=== PATIENT | female | born 2000 | race Caucasian/White ===

== ENCOUNTER 2024-05-09 13:33 | Outpatient (OUT) | payer OTHER, SELFPAY ==
--- NOTE | 2024-05-09 13:37 | US_ITS ---
[address] [address] Patient Name: TANNER RAMIREZ MRN: [id number] date: 2000 Sex: F Assigned Patient Location: [facility] Current Patient Location: LAB Accession/Order Number: [id number] Exam Date: 05/09/2024 13:37 Report Date: 05/09/2024 15:22 At the request of: WILL CRESPO Procedure: US OB >= 14 weeks Fetus EXAMINATION: US OB >= 14 weeks Fetus HISTORY: MISSED MENSES COMPARISON: No relevant comparison available. TECHNIQUE: Transabdominal sonographic examination was performed for obstetrical and evaluation. FINDINGS: Number: 1 Heart Rate: 153 bpm H.B. /min Amniotic Fluid Volume: Subjectively normal Placental Location: Anterior, grade 1 BIOMETRY: BPD: 3.42 cm; 16 weeks 4 days; HC: 12.68 cm; ; 16 weeks 3 days AC: 11.40 cm; ; 17 weeks 1 day FL: 2.20 cm; ; 16 weeks 4 days EFW:173.68 g; FL/AC: 19.30 FL/BPD: 64.33 HC/AC: 1.11 GESTATIONAL AGE: Age by EDC: Unknown Age by current US: 16 weeks 5 days JOSE by current US: 2024-10-19 US/US OB >= 14 weeks Fetus IMPRESSION: [place] intrauterine gestation measuring 16 weeks 5 days *Reference: [facility] Practice Guideline for the performance of Obstetric Ultrasound Examinations, July 02, 2007. Electronically authenticated by: LEE CLAY Date: 05/09/2024 15:22
== END 2024-05-09 13:34 | disposition home or self-care (01) ==
LOC: NOMS 13:33
PROVIDERS: Visit Provider Obstetrics & Gynecology
DX: Z34.92 Encounter for supervision of normal pregnancy, unspecified, second trimester (principal)
CPT/HCPCS: 76815

== ENCOUNTER 2024-05-09 15:11 | Outpatient (OUT) | payer OTHER, SELFPAY ==
[2024-05-09 15:51] LABS: Basophils Percent Auto 0.1 % (0.2-2.0); Eosinophils Percent Auto 0.4 % (0.9-7.0); Hematocrit 34.5 % (36.0-48.0); Hemoglobin 11.9 g/dL (12.0-16.0); Immature Granulocytes Abs Auto 0.06 10^3/uL (0.00-0.03); Immature Granulocytes Pct Auto 0.7 % (0.0-0.5); Lymphocytes Absolute Auto 1.5 10^3/uL (1.2-3.8); Lymphocytes Percent Auto 16.6 % (20.5-60.0); Mean Corpuscular HGB Conc 34.5 g/dL (29.9-35.2); Mean Corpuscular Hemoglobin 30.3 pg (26.7-34.0); Mean Corpuscular Volume 87.8 fL (81.0-99.0); Mean Platelet Volume 10.2 fL (9.5-13.5); Monocytes Absolute Auto 0.5 10^3/uL (0.3-0.8); Monocytes Percent Auto 5.9 % (1.7-12.0); Neutrophils Absolute Auto 6.8 10^3/uL (1.4-6.5); Neutrophils Percent Auto 76.3 % (43.0-75.0); Platelet Count 197 10^3/uL (150-450); Red Blood Count 3.93 10^6/uL (4.20-5.40); Red Cell Distribution Width 13.6 % (11.0-15.0)
[2024-05-09 16:06] LABS: Estimated Average Glucose 80 mg/dL; Glycohemoglobin A1C 4.4 % (4.5-6.2)
== END 2024-05-09 15:12 | disposition home or self-care (01) ==
LOC: LAB 15:12
PROVIDERS: Visit Provider Obstetrics & Gynecology
DX: Z34.92 Encounter for supervision of normal pregnancy, unspecified, second trimester (principal); N92.6 Irregular menstruation, unspecified
CPT/HCPCS: 36415; 76815; 83036; 85025; 86592; 86762; 86803; 86850; 86900; 86901; 87086; 87340; 87389

== ENCOUNTER 2024-06-05 09:29 | Outpatient (OUT) | payer OTHER, SELFPAY ==
--- NOTE | 2024-06-05 09:30 | US_ITS ---
[address] [address] Patient Name: TANNER RAMIREZ MRN: [id number] date: 2000 Sex: F Assigned Patient Location: [facility] Current Patient Location: LAB Accession/Order Number: [id number] Exam Date: 06/05/2024 09:30 Report Date: 06/05/2024 12:20 At the request of: WILL CRESPO Procedure: US OB anatomy EXAMINATION: US OB anatomy, US OB cervical length HISTORY: anatomic survey Z36.89 COMPARISON: No relevant comparison available. TECHNIQUE: Transabdominal sonographic examination was performed for obstetrical and evaluation. FINDINGS: Number: 1 Heart Rate: 107.30 bpm with long periods decreasing to 56 bpm Amniotic Fluid Volume: Subjectively normal Placental Location: Anterior with lower margin 2.1 cm from os. Cervix Length: 5.22 cm ; closed ANATOMY: Normal Structures -cerebellum, choroid plexus, cisterna magna, lateral cerebral ventricles, orbits, midline falx, hard palate, four-chamber heart, RVOT, LVOT, stomach, kidneys, bladder, umbilical cord insertion into abdomen, three-vessel cord, cervical spine, thoracic spine, lumbar spine, sacral spine, right upper extremity, left upper extremity, right lower extremity, left lower extremity. SUBOPTIMALLY SEEN: None ABNORMALITIES: None. Placental end of the cord inserts 2.3 cm from margin of placenta. BIOMETRY: BPD: 4.40 cm; 19 weeks 2 days; 8 % HC: 17.34 cm; 19 weeks 6 days; 14.60 % AC: 14.51 cm; 19 weeks 6 days; 20.80 % FL: 3.20 cm; 20 weeks 0 days; 21.30 % EFW:317.49 g; 13.80 % FL/AC: 22.04 FL/BPD: 72.60 HC/AC: 1.20 GESTATIONAL AGE: Age by EDC: 20 weeks 4 days Age by current US: 19 weeks 5 days JOSE by current US: 2024-10-25 JOSE by EDC: 2024-10-19 US/US OB anatomy IMPRESSION: 1. Single live intrauterine with growth detailed above. 2. Low-lying anterior placenta. 3. Episodes of lower heart rate (56 bpm). Electronically authenticated by: TEAGAN ENRIQUE Date: 06/05/2024 12:20
--- NOTE | 2024-06-05 09:30 | US_ITS ---
[address] [address] Patient Name: TANNER RAMIREZ MRN: [id number] date: 2000 Sex: F Assigned Patient Location: [facility] Current Patient Location: LAB Accession/Order Number: [id number] Exam Date: 06/05/2024 09:30 Report Date: 06/05/2024 12:20 At the request of: WILL CRESPO Procedure: US OB cervical length EXAMINATION: US OB anatomy, US OB cervical length HISTORY: anatomic survey Z36.89 COMPARISON: No relevant comparison available. TECHNIQUE: Transabdominal sonographic examination was performed for obstetrical and evaluation. FINDINGS: Number: 1 Heart Rate: 107.30 bpm with long periods decreasing to 56 bpm Amniotic Fluid Volume: Subjectively normal Placental Location: Anterior with lower margin 2.1 cm from os. Cervix Length: 5.22 cm ; closed ANATOMY: Normal Structures -cerebellum, choroid plexus, cisterna magna, lateral cerebral ventricles, orbits, midline falx, hard palate, four-chamber heart, RVOT, LVOT, stomach, kidneys, bladder, umbilical cord insertion into abdomen, three-vessel cord, cervical spine, thoracic spine, lumbar spine, sacral spine, right upper extremity, left upper extremity, right lower extremity, left lower extremity. SUBOPTIMALLY SEEN: None ABNORMALITIES: None. Placental end of the cord inserts 2.3 cm from margin of placenta. BIOMETRY: BPD: 4.40 cm; 19 weeks 2 days; 8 % HC: 17.34 cm; 19 weeks 6 days; 14.60 % AC: 14.51 cm; 19 weeks 6 days; 20.80 % FL: 3.20 cm; 20 weeks 0 days; 21.30 % EFW:317.49 g; 13.80 % FL/AC: 22.04 FL/BPD: 72.60 HC/AC: 1.20 GESTATIONAL AGE: Age by EDC: 20 weeks 4 days Age by current US: 19 weeks 5 days JOSE by current US: 2024-10-25 JOSE by EDC: 2024-10-19 US/US OB cervical length IMPRESSION: 1. Single live intrauterine with growth detailed above. 2. Low-lying anterior placenta. 3. Episodes of lower heart rate (56 bpm). Electronically authenticated by: TEAGAN ENRIQUE Date: 06/05/2024 12:20
== END 2024-06-05 09:30 | disposition home or self-care (01) ==
LOC: NOMS 09:29
PROVIDERS: Visit Provider Obstetrics & Gynecology
DX: O44.42 Low lying placenta NOS or without hemorrhage, second trimester (principal); Z36.89 Encounter for other specified antenatal screening; Z3A.20 20 weeks gestation of pregnancy
CPT/HCPCS: 76805; 76817

== ENCOUNTER 2024-06-05 11:29 | Outpatient (OUT) | payer OTHER, SELFPAY ==
[2024-06-07 02:09] LABS: AFP Value 73.4 ng/mL (.); Gest. Age on Collection Date 20.6 weeks (.); Gestat. Age Based On Ultrasound (.); Insulin Dep Diabetes No (.); Maternal Age At EDD 22.5 yr (.); OSBR Risk 1 IN 10000 (.); Results Report (.)
== END 2024-06-05 11:30 | disposition home or self-care (01) ==
PROVIDERS: Visit Provider Obstetrics & Gynecology
DX: O44.42 Low lying placenta NOS or without hemorrhage, second trimester (principal); Z36.89 Encounter for other specified antenatal screening; Z3A.20 20 weeks gestation of pregnancy
CPT/HCPCS: 36415; 76805; 76817; 82105

== ENCOUNTER 2024-07-03 19:59 | Outpatient (REF) | payer OTHER, SELFPAY ==
--- OUTSIDE RECORDS SUMMARY | 2024-07-03 20:03 | XMS_ITS | CCD ---
Author Organization [facility] Care Team Providers Care Field Services Analyst Name Role Phone OKSANAMAIRA ECHEVARRIA Unavailable Unavailable TOBY, ROSE MARY Unavailable Unavailable TOBY, ROSE MARY Unavailable Unavailable SONDIKE, CONOR B Unavailable Unavailable SONDIKE, CONOR B Unavailable Unavailable TOBY, ROSE MARY Unavailable Unavailable HISSETT, JOON Unavailable Unavailable TOBY, ROSE MARY Unavailable Unavailable CHERYL NORIEGA Unavailable Unavailable NOAH MCCALLUM Unavailable Unavailable MAIDA REEVES Unavailable Unavailable TOBY, Rose Mary A Primary Care Physician Fatoumata Oneill Primary Care Physician [phone] CHERIE ., DR SOLIS Attending Unavailable CHERIE ., DR SOLIS Admitting Unavailable KARASIK ., DR CEE Attending Unavailabl e MISC, DR CORNEJO Primary Care Unavailable KARASIK ., DR CEE Consulting Unavailabl e KARASIK ., DR CEE Admitting Unavailabl e ZIEBER, DR TEAGAN Jurado Consulting Unavailable MISC, DR CORNEJO Primary Care Unavailable CHERIE ., DR SOLIS Attending Unavailable CHERIE ., DR SOLIS Consulting Unavailable CHERIE ., DR SOLIS Admitting Unavailable CHERIE ., DR SOLIS Attending Unavailable CHERIE ., DR SOLIS Consulting Unavailable CHERIE ., DR SOLIS Admitting Unavailable CHERIE ., DR SOLIS Attending Unavailable CHERIE ., DR SOLIS Consulting Unavailable CHERIE ., DR SOLIS Admitting Unavailable ZIEBER, DR TEAGAN Jurado Consulting Unavailable MISC, DR CORNEJO Primary Care Unavailable CHERIE ., DR SOLIS Attending Unavailable CHERIE ., DR SOLIS Consulting Unavailable CHERIE ., DR SOLIS Admitting Unavailable MISC, DR CORNEJO Primary Care Unavailable KARASIK ., DR CEE Attending Unavailabl e KARASIK ., DR CEE Consulting Unavailabl e KARASIK ., DR CEE Admitting Unavailabl e WEST, DR LEE Arceo Consulting Unavailable CHERIE ., DR SOLIS Consulting Unavailable MISC, DR CORNEJO Primary Care Unavailable CHERIE ., DR SOLIS Attending Unavailable CHERIE ., DR SOLIS Consulting Unavailable CHERIE ., DR SOLIS Admitting Unavailable MISC, DR CORNEJO Primary Care Unavailable SEDRICK ., WILL Admitting Unavailable SEDRICK ., WILL Attending Unavailable SEDRICK ., WILL Consulting Unavailable CHERIE ., DR SOLIS Attending Unavailable CHERIE ., DR SOLIS Consulting Unavailable CHERIE ., DR SOLIS Admitting Unavailable CHERIE ., DR SOLIS Attending Unavailable CHERIE ., DR SOLIS Consulting Unavailable CHERIE ., DR SOLIS Admitting Unavailable MISC, DR CORNEJO Primary Care Unavailable CHERIE ., DR SOLIS Consulting Unavailable CHERIE ., DR SOLIS Attending Unavailable CHERIE ., DR SOLIS Admitting Unavailable ZIEBER, DR TEAGAN Jurado Consulting Unavailable CHERIE ., DR SOLIS Attending Unavailable CHERIE ., DR SOLIS Consulting Unavailable CHERIE ., DR SOLIS Admitting Unavailable CHERIE ., DR SOLIS Attending Unavailable CHERIE ., DR SOLIS Consulting Unavailable CHERIE ., DR SOLIS Admitting Unavailable ZIEBER, DR TEAGAN Jurado Consulting Unavailable MISC, DR CORNEJO Primary Care Unavailable CHERIE ., DR SOLIS Attending Unavailable CHERIE ., DR SOLIS Consulting Unavailable CHERIE ., DR SOLIS Admitting Unavailable CHERIE ., DR SOLIS Attending Unavailable CHERIE ., DR SOLIS Consulting Unavailable CHERIE ., DR SOLIS Admitting Unavailable MISC, DR CORNEJO Primary Care Unavailable CHERIE ., DR SOLIS Consulting Unavailable CHERIE ., DR SOLIS Admitting Unavailable CHERIE ., DR SOLIS Attending Unavailable MISC, DR CORNEJO Primary Care Unavailable REINECK, DR CONOR Lux Consulting Unavailabl e REINECK, DR CONOR Lux Admitting Unavailabl e REINECK, DR CONOR Lux Attending Unavailabl e CHERIE ., DR SOLIS Attending Unavailable CHERIE ., DR SOLIS Consulting Unavailable CHERIE ., DR SOLIS Admitting Unavailable ZIEBER, DR TEAGAN Jurado Consulting Unavailable MISC, DR CORNEJO Primary Care Unavailable KARASIK ., DR CEE Consulting Unavailabl e KARASIK ., DR CEE Admitting Unavailabl e KARASIK ., DR CEE Attending Unavailabl e CHERIE ., DR SOLIS Consulting Unavailable ZIEBER, DR TEAGAN Jurado Consulting Unavailable CHERIE ., DR SOLIS Attending Unavailable MISC, DR CORNEJO Primary Care Unavailable CHERIE ., DR SOLIS Consulting Unavailable CHERIE ., DR SOLIS Admitting Unavailable KARASIK ., DR CEE Attending Unavailabl e MISC, DR CORNEJO Primary Care Unavailable KARASIK ., DR CEE Consulting Unavailabl e KARASIK ., DR CEE Admitting Unavailabl e WEST, DR LEE Arceo Consulting Unavailable CHERIE ., DR SOLIS Consulting Unavailable MISC, DR CORNEJO Primary Care Unavailable CHERIE ., DR SOLIS Attending Unavailable CHERIE ., DR SOLIS Consulting Unavailable CHERIE ., DR SOLIS Admitting Unavailable ZIEBER, DR TEAGAN Jurado Consulting Unavailable MISC, DR CORNEJO Primary Care Unavailable CHRISTIANO KHOURY Consulting Unavailable IRAIDA, CHRISTIANO Admitting Unavailable CHRISTIANO KHOURY Attending Unavailable MISC, DR CORNEJO Primary Care Unavailable CHERIE ., DR SOLIS Attending Unavailable KARASIK ., DR CEE Consulting Unavailabl e CHERIE ., DR SOLIS Admitting Unavailable CHERIE ., DR SOLIS Consulting Unavailable ZIEBER, DR TEAGAN Jurado Consulting Unavailable MISC, DR CORNEJO Primary Care Unavailable KARASIK ., DR CEE Consulting Unavailabl e KARASIK ., DR CEE Admitting Unavailabl e KARASIK ., DR CEE Attending Unavailabl e CHERIE ., DR SOLIS Consulting Unavailable ZIEBER, DR TEAGAN Jurado Consulting Unavailable MISC, DR CORNEJO Primary Care Unavailable KARASIK ., DR CEE Consulting Unavailabl e KARASIK ., DR CEE Admitting Unavailabl e KARASIK ., DR CEE Attending Unavailabl e WEST, DR LEE Arceo Consulting Unavailable CHERIE ., DR SOLIS Consulting Unavailable MISC, DR CORNEJO Primary Care Unavailable CHERIE ., DR SOLIS Attending Unavailable CHERIE ., DR SOLIS Admitting Unavailable MISC, DR CORNEJO Primary Care Unavailable DEBBIE ROJAS Admitting Unavailable DEBBIE ROJAS Attending Unavailable DEBBIE ROJAS Consulting Unavailable MAHAD OLIVEROS Consulting Unavailable MISC, DR CORNEJO Primary Care Unavailable CHERIE ., DR SOLIS Attending Unavailable CHERIE ., DR SOLIS Consulting Unavailable CHERIE ., DR SOLIS Admitting Unavailable MAREK LAI Consulting Unavailable CHERIE ., DR SOLIS Procedure Practitioner Unavail able MIS, DR CORNEJO Primary Care Unavailable CHERIE ., DR SOLIS Attending Unavailable CHERIE ., DR SOLIS Consulting Unavailable CHERIE ., DR SOLIS Admitting Unavailable MISC, DR CORNEJO Primary Care Unavailable CHERIE ., DR SOLIS Attending Unavailable CHERIE ., DR SOLIS Consulting Unavailable CHERIE ., DR SOLIS Admitting Unavailable ZIEBER, DR TEAGAN Jurado Consulting Unavailable MIS, DR CORNEJO Primary Care Unavailable CHERIE ., DR SOLIS Attending Unavailable PROSPECT PARK, DR LEE Arceo Consulting Unavailable CHERIE ., DR SOLIS Admitting Unavailable CHERIE ., DR SOLIS Consulting Unavailable CHERIE ., DR SOLIS Attending Unavailable CHERIE ., DR SOLIS Consulting Unavailable CHERIE ., DR SOLIS Admitting Unavailable ALINE Tomlinson Attending Provider Mel Tomlinson Unavailable Augusto Brewer Unavailable Mel Tomlinson Admitting Unavailable Mel Tomlinson Attending Unavailable NO PCP, NO PCP Primary Care Unavailable NO PCP, NO PCP Primary Care Unavailable SLIME ELLER Attending Unavailable SLIME ELLER Referring Unavailable NO PCP, NO PCP Primary Care Unavailable WILL HARDING Attending Unavailable Medications Current Medications Medication Drug Class(es) Dates Sig (Normalized) Sig (Original) amoxicillin 500 mg oral capsule (8 sources) Penicillin-class Antibacterial Start: 07-17-2023 take 1 capsule by mouth every eight hours Amoxicillin 500 MG 1 capsule Orally three times a day for 10 day(s) Jul, Active Amoxicillin 875 MG Oral for 10 Days Not-Taking fluconazole 150 mg oral tablet (4 sources) Azole Antifungal Start: 07-17-2023 Diflucan 150 MG 1 tablet Orally once for 2 days Take the first tablet at the first onset of vaginal itching, take the second tablet 3 days later Jul, Active hydrocortisone 10 mg/ml / neomycin 3.5 mg/ml / polymyxin b 41033 unt/ml otic suspension (4 sources) Aminoglycoside Antibacterial, Polymyxin-class Antibacterial, Corticosteroid Start: 07-17-2023 Neomycin-Polym yxin-HC 3.5-63965-4 3 drops right ear Three times a day for 7 days Jul, Active polyethylene glycol 3350 63687 mg powder for oral solution (5 sources) Osmotic Laxative Start: 09-27-2022 take 17 g by mouth once daily Miralax 3350 17 gram packet 17 gm, Oral, Daily, # 12 EA, Refills(s) 0, Pharmacy: [facility]/pharmacy #[id number], 157.5, cm, 09/27/22 22:57:00 EST, Height/Length Dosing, 51.3, kg, 09/27/22 22:57:00 EST, Weight Dosing Start Date: 09/27/22 Status: Ordered sulfamethoxazole 800 mg / trimethoprim 160 mg oral tablet (7 sources) Dihydrofolate Reductase Inhibitor Antibacterial, Sulfonamide Antimicrobial Start: 07-20-2023 take 1 tablet by mouth every twelve hours Bactrim DS 800-160 MG 1 tablet Orally Twice a day for 7 days Jul, Active Completed/Discontinued Medications Medication Drug Class(es) Dates Sig (Normalized) Sig (Original) azithromycin 250 mg oral tablet (4 sources) Macrolide Antimicrobial Azithromycin 250 MG Oral for 3 Days Not-Taking cephalexin 250 mg oral capsule (4 sources) Cephalosporin Antibacterial Cephalexin 250 MG Oral for 5 Days Not-Taking metroNIDAZOLE 500 mg oral tablet (4 sources) Nitroimidazole Antimicrobial metroNIDAZOLE 500 MG Oral for 7 Days Not-Taking ondansetron 4 mg disintegrating oral tablet (4 sources) Serotonin-3 Receptor Antagonist take 1 tablet by mouth every eight hours as needed Ondansetron 4 MG DISSOLVE 1 TABLET ON THE TOUNGE EVERY 8 HOURS NEEDED Oral for 2 Days Not-Taking venlafaxine 50 mg oral tablet (4 sources) Serotonin and Norepinephrine Reuptake Inhibitor Venlafaxine HCl 50 MG Oral for 30 Days Not-Taking Problems Active Problems Problem Classification Problem Date Documented Da te Episodic/Chronic Acute and chronic tonsillitis (2 sources) Tonsillitis 05-19-2021 Episodic Disorders usually diagnosed in infancy, childhood, or adolescence (2 sources) 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 Genitourinary symptoms and ill-defined conditions (3 sources) Personal history of urinary (tract) infections; Translations: [Dysuria] Onset: 11-21-2022 Episodic Immunizations and screening for infectious disease (2 sources) Encounter for screening for infections with a predominantly sexual mode of transmission; Translations: [Contact with and (suspected) exposure to infections with a predominantly sexual mode of transmission] Onset: 05-20-2022 Episodic Intestinal infection (5 sources) Viral gastritis; Translations: [Viral gastroenteritis] Onset: 12-29-2022 12-11-2019 Episodic Menstrual disorders (6 sources) Dysmenorrhea; Translations: [Irregular menstruation, unspecified] Onset: 02-11-2022 02-12-2019 Chronic Other ear and sense organ disorders (2 sources) Unspecified acute noninfective otitis externa, right ear Episodic Other female genital disorders (7 sources) Other specified noninflammatory disorders of vagina; Translations: [OTH SPEC NONINFLAMMATORY D/O VAGINA] Onset: 05-19-2022 Episodic Other female genital disorders (1 source) Other specified noninflammatory disorders of vagina; Translations: [Other specified noninflammatory disorders of vagina] Onset: 07-17-2023 Episodic Other gastrointestinal disorders (1 source) Constipation, unspecified; Translations: [Constipation, unspecified] Onset: 09-27-2022 Episodic Other gastrointestinal disorders (3 sources) Diarrhea, unspecified; Translations: [DIARRHEA UNSPECIFIED] Onset: 12-27-2022 Episodic Other gastrointestinal disorders (1 source) Other fecal abnormalities; Translations: [Other fecal abnormalities] Onset: 03-11-2024 Episodic Other infections; including parasitic (2 sources) Personal history of other infectious and parasitic diseases Episodic Other nutritional; endocrine; and metabolic disorders (2 sources) Body mass index less than 20 2021 Episodic Other and delivery including normal (16 sources) Encounter for routine follow-up; Translations: [Single live ] Onset: 01-27-2022 Episodic Other skin disorders (1 source) Sebaceous cyst Episodic Other upper respiratory infections (5 sources) Pharyngitis; Translations: [Sore throat symptom] Onset: 09-27-2022 05-19-2021 Episodic Otitis media and related conditions (2 sources) Otitis media, unspecified, right ear Episodic Skin and subcutaneous tissue infections (1 source) Local infection of the skin and subcutaneous tissue, unspecified Episodic Unclassified (2 sources) Decreased body mass index 07-06-2020 Unclassified (3 sources) CONTACT W/AND (SUSP) EXPOS COVID-19; Translations: [CONTACT W/AND (SUSP) EXPOS COVID-19] Onset: 03-03-2022 Unclassified (1 source) Problem Onset: 03-11-2024 Unclassified (1 source) Urinary Problem- Posible Preganacy Onset: 03-11-2024 Viral infection (1 source) COVID-19; Translations: [COVID-19] Onset: 03-03-2022 Past or Other Problems Problem Classification Problem Date Documented Da te Episodic/Chronic Abdominal pain (8 sources) Unspecified abdominal pain; Translations: [Lower abdominal pain, unspecified] Onset: 08-05-2022 Episodic Asthma (2 sources) Asthma Resolved: 10-02-2016 11-25-2017 Chronic Comment on above: pt does not have ast hma - seen specialist to confirm not having asthma Hemorrhage during ; abruptio placenta; placenta previa (4 sources) Hemorrhage in early , unspecified; Translations: [HEMORRHAGE EARLY UNS] Onset: 02-16-2022 Episodic OB-related trauma to perineum and vulva (1 source) Other specified trauma to perineum and vulva; Translations: [OTHER SPEC TRAUMA PERINEUM AND VULVA] Onset: 09-15-2022 Episodic Other complications of (5 sources) Maternal care for other known or suspected poor growth, third trimester, not applicable or unspecified; Translations: [MAT CARE OTH NV FTL GRTH 3RD TM UNS] Onset: 08-08-2022 Episodic Other complications of (1 source) Unspecified infection of urinary tract in , third trimester; Translations: [UNS INF URINARY TRACT PREG 3RD TRI] Onset: 08-10-2022 Episodic Other complications of (4 sources) Other specified related conditions, third trimester; Translations: [OTH SPEC PREG RELATED COND 3RD TRI] Onset: 07-22-2022 Episodic Other complications of (4 sources) Unspecified infection of urinary tract in , unspecified trimester; Translations: [UNS INF URINARY TRACT PREG UNS TRI] Onset: 05-19-2022 Episodic Other complications of (1 source) Other specified related conditions, unspecified trimester; Translations: [OTH SPEC PREG RELATED COND UNS TRI] Onset: 05-19-2022 Episodic Other screening for suspected conditions (not mental disorders or infectious disease) (14 sources) Encounter for screening for diabetes mellitus; Translations: [Encounter for other specified screening] Onset: 02-16-2022 Episodic Residual codes; unclassified (1 source) 38 weeks gestation of ; Translations: [38 WEEKS GESTATION OF ] Onset: 09-15-2022 Episodic Residual codes; unclassified (1 source) 37 weeks gestation of ; Translations: [37 WEEKS GESTATION OF ] Onset: 08-19-2022 Episodic Residual codes; unclassified (1 source) 36 weeks gestation of ; Translations: [36 WEEKS GESTATION OF ] Onset: 08-13-2022 Episodic Residual codes; unclassified (1 source) 35 weeks gestation of ; Translations: [35 WEEKS GESTATION OF ] Onset: 08-03-2022 Episodic Residual codes; unclassified (1 source) 34 weeks gestation of ; Translations: [34 WEEKS GESTATION OF ] Onset: 07-31-2022 Episodic Residual codes; unclassified (1 source) 33 weeks gestation of ; Translations: [33 WEEKS GESTATION OF ] Onset: 07-25-2022 Episodic Residual codes; unclassified (1 source) 32 weeks gestation of ; Translations: [32 WEEKS GESTATION OF ] Onset: 07-14-2022 Episodic Residual codes; unclassified (1 source) 12 weeks gestation of ; Translations: [12 WEEKS GESTATION OF ] Onset: 03-02-2022 Episodic Unclassified (1 source) LOM 09/19/2011( Confirmed ) 09-26-2011 Unclassified (1 source) LOM 09/19/2011 09-26-2011 Unclassified (1 source) CONTACT W/AND (SUSP) EXPOS COVID-19; Translations: [CONTACT W/AND (SUSP) EXPOS COVID-19] Onset: 02-25-2022 Urinary tract infections (4 sources) Urinary tract infectious disease; Translations: [Urinary tract infection, site not specified] Onset: 08-10-2022 10-16-2016 Episodic Results Test Name Value Interpretation Reference Range Facility CBC AND AUTO DIFFon 03-11-20 ABSOLUTE BASOPHIL 0.0 X10E9/L Normal 0.0-0.2 [facility] Comment on above: Performed By: #### C BCA, CMP, [id number] #### [facility] ([id number]) [address] [place] [address] ABSOLUTE NEUTROPHIL 7.1 X10E9/L High 1.5-6.6 [facility] Comment on above: Performed By: #### Dar VALENTINE CMP, #### [facility] ([id number]) [address] [place] [address] 84733 Basophils/100 WBC (Bld) 0.2 % Normal [facility] [place] Comment on above: Performed By: #### Dar VALENTINE CMP, #### [facility] ([id number]) [address] [place] [address] 35048 Eosinophils (Bld) [#/Vol] 0.0 10*3/uL Normal 0.0-0.4 [facility] [place] Comment on above: Performed By: #### Dar VALENTINE CMP, #### [facility] ([id number]) [address] [place] [address] 83274 Eosinophils/100 WBC (Bld) 0.4 % Normal [facility] [place] Comment on above: Performed By: #### Dar VALENTINE CMP, #### [facility] ([id number]) [address] [place] [address] 39897 Erythrocyte distribution width (RBC) [Ratio] 13.4 % Normal 11.5-15.0 [facility] [place] Comment on above: Performed By: #### Dar VALENTINE CMP, #### [facility] ([id number]) [address] [place] [address] 48301 Hematocrit (Bld) [Volume fraction] 39.9 % Normal 35-47 [facility] [place] Comment on above: Performed By: #### Dar VALENTINE CMP, #### [facility] ([id number]) [address] [place] [address] 16573 Hemoglobin (Bld) [Mass/Vol] 13.9 g/dL Normal 11.7-15.5 [facility] [place] Comment on above: Performed By: #### C AUREA VALENTINE, #### [facility] ([id number]) [address] [place] [address] 89022 Lymphocytes (Bld) [#/Vol] 2.0 10*3/uL Normal 1.0-3.5 [facility] [place] Comment on above: Performed By: #### Dar VALENTINE CMP, #### [facility] ([id number]) [address] [place] [address] 97835 Lymphocytes/100 WBC (Bld) 20.6 % Normal [facility] [place] Comment on above: Performed By: #### Dar VALENTINE CMP, #### [facility] ([id number]) [address] [place] [address] 30169 MCH (RBC) [Entitic mass] 29.4 pg Normal 27-34 [facility] [place] Comment on above: Performed By: #### Dar VALENTINE CMP, #### [facility] ([id number]) [address] [place] [address] 69536 MCHC (RBC) [Mass/Vol] 34.9 g/dL Normal 32-36 [facility] [place] Comment on above: Performed By: #### Dar VALENTINE CMP, #### [facility] ([id number]) [address] [place] [address] 12830 MCV (RBC) [Entitic vol] 84 fL Normal 80-100 [facility] [place] Comment on above: Performed By: #### Dar VALENTINE CMP, #### [facility] ([id number]) [address] [place] [address] 49452 Monocytes (Bld) [#/Vol] 0.7 10*3/uL Normal 0-0.9 [facility] [place] Comment on above: Performed By: #### Dar VALENTINE CMP, #### [facility] ([id number]) [address] [place] [address] 60629 Monocytes/100 WBC (Bld) 7.4 % Normal [facility] [place] Comment on above: Performed By: #### Dar VALENTINE, CMP, #### [facility] ([id number]) [address] [place] [address] 85254 Neutrophils/100 WBC (Bld) 71.4 % Normal [facility] [place] Comment on above: Performed By: #### Dar VALENTINE, [facility], #### [facility] ([id number]) [address] [place] [address] 15749 Platelet mean volume (Bld) [Entitic vol] 9.0 fL Normal 7-12 [facility] [place] Comment on above: Performed By: #### Dar VALENTINE [facility], #### [facility] ([id number]) [address] [place] [address] 80334 Platelets (Bld) [#/Vol] 194 10*3/uL Normal 150-450 [facility] [place] Comment on above: Performed By: #### Dar VALENTINE [facility], #### [facility] ([id number]) [address] [place] [address] 94768 RBC COUNT 4.74 X10E12/L Normal 3.80-5.20 [facility] [place] Comment on above: Performed By: #### Dar VALENTINE, CMP, #### [facility] ([id number]) [address] [place] [address] 46163 WBC (Bld) [#/Vol] 10.0 10*3/uL Normal 4.0-11.0 [facility] Comment on above: Performed By: #### Dar VALENTINE, CMP, #### [facility] ([id number]) [address] [place] [address] 86505 COMPREHENSIVE METABOLIC PANE Vini 03-11-2024 Albumin [Mass/Vol] 4.2 g/dL Normal 3.2-5.3 [facility] Comment on above: Performed By: #### C MEME CMP, #### [facility] ([id number]) [address] [place] [address] 55560 ALP [Catalytic activity/Vol] 47 U/L Normal 39-130 [facility] [place] Comment on above: Performed By: #### C MEME CMP, #### [facility] ([id number]) [address] [place] [address] 00633 ALT [Catalytic activity/Vol] 15 U/L Normal 0-31 [facility] Comment on above: Performed By: #### C MEME CMP, #### [facility] ([id number]) [address] [place] [address] 26946 Anion gap [Moles/Vol] 7 mmol/L Normal 5-15 [facility] [place] Comment on above: Performed By: #### C AUREA VALENTINE, #### [facility] ([id number]) [address] [place] [address] 52039 AST [Catalytic activity/Vol] 15 U/L Normal 0-41 [facility] Comment on above: Performed By: #### C MEME CMP, #### [facility] ([id number]) [address] [place] [address] 23016 Bilirubin [Mass/Vol] 0.5 mg/dL Normal 0.3-1.2 [facility] Comment on above: Performed By: #### C MEME, CMP, #### [facility] ([id number]) [address] [place] [address] 71728 Calcium [Mass/Vol] 8.7 mg/dL Normal 8.5-10.5 [facility] Comment on above: Performed By: #### C AUREA VALENTINE, 56080-7 #### [facility] ([id number]) [address] [place] [address] 57157 Chloride [Moles/Vol] 103 mmol/L Normal 98-109 [facility] Comment on above: Performed By: #### C AUREA VALENTINE, #### [facility] ([id number]) [address] [place] [address] 56008 CO2 [Moles/Vol] 22 mmol/L Normal 22-32 [facility] [place] Comment on above: Performed By: #### C AUREA VALENTINE, #### [facility] ([id number]) [address] [place] [address] 60972 Creatinine [Mass/Vol] 0.72 mg/dL Normal 0.40-1.00 [facility] Comment on above: Result Comment: METH OD TRACEABLE TO IDMS STANDARD Performed By: #### C AUREA VALENTINE, 13065-9 #### [facility] ([id number]) [address] [place] [address] 56905 eGFR (CKD-EPI) NON-RACE DEPENDENT >90 Normal >59 [facility] [place] Comment on above: Result Comment: Reported eGFR is based on the CKD-EPI 2020 equation that does not use a race coefficient. Performed By: #### C AUREA VALENTINE, #### [facility] ([id number]) [address] [place] [address] 57782 Glucose [Mass/Vol] 81 mg/dL Normal 65-99 [facility] Comment on above: Performed By: #### C AUREA VALENTINE, #### [facility] ([id number]) [address] [place] [address] 55303 Potassium [Moles/Vol] 3.7 mmol/L Normal 3.5-5.0 [facility] [place] Comment on above: Performed By: #### C BCA, [facility], #### [facility] ([id number]) [address] [place] [address] 52780 Protein [Mass/Vol] 7.4 g/dL Normal 6.0-8.0 [facility] Comment on above: Performed By: #### C BCA [facility], #### [facility] ([id number]) [address] [place] [address] 82672 Sodium [Moles/Vol] 132 mmol/L Low 134-146 [facility] Comment on above: Performed By: #### C BCA, CMP, #### [facility] ([id number]) [address] [place] [address] 08358 Urea nitrogen [Mass/Vol] 14 mg/dL Normal 5-23 [facility] [place] Comment on above: Performed By: #### C BCA, [facility], [address]-5 #### [facility] ([id number]) [address] [place] [address] 65270 HCG ( test) Ql (U)o n 03-11-2024 Beta HCG ( test) Ql (U) Positive Abnormal NEG [facility] [place] Comment on above: Performed By: #### 2 106-3 #### [facility] ([id number]) [address] [place] [address] 24008 HCG.beta subunit IA 3rd IS Q non 03-11-2024 HCG.beta subunit Qn 679609 m[IU]/mL Normal [facility] [place] Comment on above: Result Comment: NEW REFERENCE RANGE WEEKS (SINCE LMP) MIU/mL 3 WEEKS 5 - 50 4 WEEKS 5 - 426 5 WEEKS 18 - 7,340 6 WEEKS 1,080 - 56,500 7-8 WEEKS 7,650 - 229,000 9-12 WEEKS 25,700 - 288,000 13-16 WEEKS 13,300 - 254,000 17-24 WEEKS 4,060 - 165,400 25-40 WEEKS 3,640 - 117,000 MALES AND NON- FEMALES - <5 MIU/mL This test has been FDA approved for use in only. Elevated levels are not necessarily diagnostic for trophoblastic or nontrophoblastic neoplasms. Performed By: #### C BCA, CMP, 06329-6 #### [facility] ([id number]) [address] [place] [address] 12905 URINE CULTUREon 03-11-2024 Bacteria identified Cx Nom (U) CULTURE RESULTS <10,000 ORGANISMS/ML NORMAL URO GENITAL RICK Normal [facility] [place] Comment on above: Performed By: #### 6 30-4 #### [facility] ([id number]) [address] [place] [address], [address] [place] [address] URN MACROSCOPIC NURon 2023 BILIRUBIN FAWAD Negative Normal NEG [facility] [place] Comment on above: Performed By: #### N UM #### [facility] ([id number]) [address] [place] [address] 21530 BLOOD/HGB FAWAD Negative Normal NEG [facility] [place] Comment on above: Performed By: #### N UM #### [facility] ([id number]) [address] [place] [address] 66675 GLUCOSE FAWAD Negative Normal NEG [facility] [place] Comment on above: Performed By: #### N UM #### [facility] ([id number]) [address] [place] [address] 50549 KETONES FAWAD Negative Normal NEG [facility] [place] Comment on above: Performed By: #### N UM #### [facility] ([id number]) [address] [place] [address] 15130 LEUKOCYTE ESTERASE FAWAD Trace Abnormal NEG [facility] [place] Comment on above: Performed By: #### N UM #### [facility] ([id number]) [address] [place] [address] 68211 NITRITE FAWAD Negative Normal NEG [facility] [place] Comment on above: Performed By: #### N UM #### [facility] ([id number]) [address] [place] [address] 27268 PH FAWAD 6.5 Normal 5.0-8.5 [facility] [place] Comment on above: Performed By: #### N UM #### [facility] ([id number]) [address] [place] [address] 51430 PROTEIN FAWAD Negative Normal NEG [facility] [place] Comment on above: Performed By: #### N UM #### [facility] ([id number]) [address] [place] [address] 08718 SPECIFIC GRAVITY FAWAD 1.010 Normal 1.003-1.035 [facility] Comment on above: Performed By: #### N UM #### [facility] ([id number]) [address] [place] [address] 14239 UROBILINOGEN FAWAD 0.2 eu/dL Normal <1.1 [facility] Comment on above: Performed By: #### N UM #### [facility] ([id number]) [address] [place] [address] ABDOMEN AND PELVIS WO CON Ton 11-26-2023 CT ABDOMEN AND PELVIS WO CONT CT ABDOMEN AND PELVIS WO CONT CLINICAL INFORMATION: Abdominal/flank pain, stone suspected. TECHNIQUE: CT Abdomen and Pelvis without intravenous contrast. All CT scans at this facility use dose modulation, iterative reconstruction, and/or weight based dosing when appropriate to reduce radiation dose to as low as reasonably achievable. COMPARISON: No relevant prior studies available. FINDINGS: Visualized lung bases and pleural spaces are clear. No focal hepatic, splenic, pancreatic, adrenal, or biliary abnormality is evident. There is no gross nephrolithiasis or hydronephrosis. Noncontrast evaluation of pelvic organs is are not optimal with no definite abnormality. Urinary bladder is within normal limits There is a small amount of fluid in the dependent pelvis. Bowel evaluation is limited with no acute bowel dilation or focal irregularity. There are no findings of appendicitis. There is no acute osseous abnormality IMPRESSION: * Finalized by Harjit Robbins MD on 11/26/2023 5:33 PM Normal [facility] [place] HCG ( test) Ql (U)o n 11-26-2023 Beta HCG ( test) Ql (U) Negative Normal NEG [facility] [place] Comment on above: Performed By: #### 2 106-3 #### [facility] ([id number]) [address] [place] [address] 12231 URINE CULTUREon 11-26-2023 Bacteria identified Cx Nom (U) CULTURE RESULTS 10,000 to 50,000 ORGANISMS/mL ESCHERICHIA COLI [ S = SUSCEPTIBLE R = RESISTANT I = INTERMEDIATE S-DO = Susceptible-dose dependent NS = Non-suscceptible NO = No Interpretation ] Organism: ESCHERICHIA COLI Antibiotic Interpretation LAURENT Status AMPICILLIN R >=32 F AMP/SULBACTAM S 8/4 F CEFAZOLIN S <=4 F CEFTRIAXONE S <=1 F CIPROFLOXACIN S <=0.25 F GENTAMICIN S <=1 F LEVOFLOXACIN S <=0.12 F NITROFURANTOIN S <=16 F PIPERACIL/TAZOBACTAM S <=4 F TOBRAMYCIN S <=1 F TRIMETH/SULFAMETHOXA ZOLE S <=1/19 F Susceptible [facility] [place] Comment on above: Performed By: #### 6 30-4 #### [facility] ([id number]) [address] [facility], [address] [place] [address] URN MACROSCOPIC NURon 2023 BILIRUBIN FAWAD Negative Normal NEG [facility] [place] Comment on above: Performed By: #### N UM #### [facility] ([id number]) [address] [place] [address] 09369 BLOOD/HGB FAWAD Trace Abnormal NEG [facility] [place] Comment on above: Performed By: #### N UM #### [facility] ([id number]) [address] [place] [address] [place] [address] GLUCOSE FAWAD Negative Normal NEG [facility] [place] Comment on above: Performed By: #### N UM #### [facility] ([id number]) [address] [place] [address] 71252 KETONES FAWAD Negative Normal NEG [facility] [place] Comment on above: Performed By: #### N UM #### [facility] ([id number]) [address] [place] [address] 61855 LEUKOCYTE ESTERASE FAWAD Trace Abnormal NEG [facility] [place] Comment on above: Performed By: #### N UM #### [facility] ([id number]) [address] [place] [address] 67089 NITRITE FAWAD Negative Normal NEG [facility] [place] Comment on above: Performed By: #### N UM #### [facility] ([id number]) [address] [place] [address] 16651 PH FAWAD 7.0 Normal 5.0-8.5 [facility] [place] Comment on above: Performed By: #### N UM #### [facility] ([id number]) [address] [place] [address] 79712 PROTEIN FAWAD Negative Normal NEG [facility] [place] Comment on above: Performed By: #### N UM #### [facility] ([id number]) [address] [place] [address] [place] [address] SPECIFIC GRAVITY FAWAD 1.020 Normal 1.003-1.035 [facility] Comment on above: Performed By: #### N UM #### [facility] ([id number]) [address] [place] [address] [place] [address] UROBILINOGEN FAWAD 0.2 eu/dL Normal <1.1 [facility] Comment on above: Performed By: #### N UM #### [facility] ([id number]) [address] [place] [address] [place] [id number] ED Note-Physicianon 09-29-20 ED Note-Physician [id number] #[id number] Normal [facility] Urinalysis - AUTOMATEDon Appearance (U) clear [employer] Other Bilirubin Ql (U) Negative [employer] Other Color (U) light yellow [facility] Other Glucose Ql (U) Negative [employer] Other Hemoglobin Ql (U) Negative [employer] Other Ketones Ql (U) Negative [employer] Other Leukocyte esterase Test strip Ql (U) Negative [employer] [facility] Other Nitrite Ql (U) Negative [employer] Other pH (U) 6.0 [pH] [employer] [facility] Other Protein Ql (U) Negative [employer] Other Specific gravity (U) [Rel density] >1.030 [facility] Other Urobilinogen (U) [Mass/Vol] 0.2 mg/dL [facility] Other Urinalysis - AUTOMATED [facility] Other Vaginitis Plus (VG+)on 07-17 Vaginitis Plus (VG+) Negative Negative [employer] Other Vaginitis Plus (VG+) Low - 0 . [employer] Other [employer] Vaginae Low - 0 Normal . [facility] Comment on above: Performed By: #### V AGINITIS+ #### [facility] , BVAB2 Low - 0 Normal . [facility] Comment on above: Performed By: #### V AGINITIS+ #### [facility] , Beata Albicans, CHULA Negative Normal Negative [facility] Comment on above: Result Comment: This test was developed and its performance characteristics determined by [facility]. It has not been cleared or approved by the Food and Drug Administration. Performed By: #### V AGINITIS+ #### [facility] , Beata Glabrata, CHULA Negative Normal Negative [facility] Comment on above: Result Comment: This test was developed and its performance characteristics determined by [facility]. It has not been cleared or approved by the Food and Drug Administration. PERFORMED BY: [facility] [address] [place] [address] PATHOLOGIST MOBILITY ENGINEER NELL GAUTAM M.D. Performed By: #### V AGINITIS+ #### [facility] , Chlamydia Trachomotis, CHULA Negative Normal Negative [facility] Comment on above: Performed By: #### V AGINITIS+ #### [facility] , Megasphaera Low - 0 Normal . [facility] Comment on above: Result Comment: Calc ulate total score by adding the 3 individual bacterial vaginosis (BV) marker scores together. Total score is interpreted as follows: Total score 0-1: Indicates the absence of BV. Total score 2: Indeterminate for BV. Additional clinical data should be evaluated to establish a diagnosis. Total score 3-6: Indicates the presence of BV. This test was developed and its performance characteristics determined by [facility]. It has not been cleared or approved by the Food and Drug Administration. Performed By: #### V AGINITIS+ #### [facility] , Neisseria Gonorrhoeae, CHULA Negative Normal Negative [facility] Comment on above: Result Comment: Perf ormed at: =G - [facility] [address] [id number] Circuits Engineer: Leticia Longo MD, Phone: [phone] Performed By: #### V AGINITIS+ #### [facility] , Tric Vag CHULA Negative Normal Negative [facility] Comment on above: Performed By: #### V AGINITIS+ #### [facility] , CBC AUTO DIFFon 12-27-2022 BASO # 0.0 103/ul Normal 0.0-0.1 [facility] Comment on above: Performed By: #### R PRQ #### [facility] [address] [address] [address] Valerio Alexis Basophils/100 WBC (Bld) 0.2 % Normal 0.2-2.0 [facility] Comment on above: Performed By: #### R PRQ #### [facility] [address] [address] [address] Valerio Alexis EO # 0.1 103/ul Normal 0.0-0.7 [facility] Comment on above: Performed By: #### R PRQ #### [facility] [address] [address] [address] Valerio Alexis Eosinophils/100 WBC (Bld) 0.6 % Critically low 0.9-7.0 [facility] Comment on above: Performed By: #### R PRQ #### [facility] [address] [place] [address] Dr. Valerio Alexis Erythrocyte distribution width (RBC) [Ratio] 14.1 % Normal 11.0-15.0 [facility] Comment on above: Performed By: #### R PRQ #### [facility] [address] [place] [address] Dr. Valerio Alexis Hematocrit (Bld) [Volume fraction] 35.7 % Critically low 36.0-48.0 [facility] Comment on above: Performed By: #### R PRQ #### [facility] [address] [place] [address] Dr. Valerio Alexis Hemoglobin (Bld) [Mass/Vol] 11.9 g/dL Critically low 12.0-16.0 [facility] Comment on above: Performed By: #### R PRQ #### [facility] [address] [place] [address] Dr. Valerio Alexis IG # 0.02 10e3/ul Normal 0.00-0.03 [facility] Comment on above: Performed By: #### R PRQ #### [facility] [address] [place] [address] Dr. Valerio Alexis IG % 0.2 % Normal 0.0-0.5 [facility] Comment on above: Performed By: #### R PRQ #### [facility] [address] [place] [address] Dr. Valerio Alexis LYMPH # 1.0 103/ul Critically low 1.2-3.8 [facility] Comment on above: Performed By: #### R PRQ #### [facility] [address] [place] [address] Dr. Valerio Alexis Lymphocytes/100 WBC (Bld) 12.4 % Critically low 20.5-60.0 [facility] Comment on above: Performed By: #### R PRQ #### [facility] [address] [place] [address] Dr. Valerio Alexis MANUAL DIFF REQ NO Normal [facility] Comment on above: Performed By: #### R PRQ #### [facility] [address] [place] [address] Dr. Valerio Alexis MCH (RBC) [Entitic mass] 26.7 pg Normal 26.7-34.0 [facility] Comment on above: Performed By: #### R PRQ #### [facility] [address] [place] [address] Dr. Valerio Alexis MCHC (RBC) [Mass/Vol] 33.3 g/dL Normal 29.9-35.2 [facility] Comment on above: Performed By: #### R PRQ #### [facility] [address] [place] [address] Dr. Valerio Alexis MCV (RBC) [Entitic vol] 80.2 fL Critically low 81.0-99.0 [facility] Comment on above: Performed By: #### R PRQ #### [facility] [address] [place] [address] Dr. Valerio Alexis MONO # 0.8 103/ul Normal 0.3-0.8 [facility] Comment on above: Performed By: #### R PRQ #### [facility] [address] [place] [address] Dr. Valerio Alexis Monocytes/100 WBC (Bld) 9.3 % Normal 1.7-12.0 [facility] Comment on above: Performed By: #### R PRQ #### [facility] [address] [place] [address] Dr. Valerio Alexis NEUT # 6.3 103/ul Normal 1.4-6.5 [facility] Comment on above: Performed By: #### R PRQ #### [facility] [address] [place] [address] Dr. Valerio Alexis Neutrophils/100 WBC (Bld) 77.3 % Critically high 43.0-75.0 [facility] Comment on above: Performed By: #### R PRQ #### [facility] [address] [place] [address] Dr. Valerio Alexis Platelet mean volume (Bld) [Entitic vol] 10.6 fL Normal 9.5-13.5 [facility] Comment on above: Performed By: #### R PRQ #### [facility] [address] [place] [address] Dr. Valerio Alexis PLT 192 103/ul Normal 150-450 [facility] Comment on above: Performed By: #### R PRQ #### [facility] [address] [place] [address] Dr. Valeiro Alexis RBC 4.45 106/ul Normal 4.20-5.40 [facility] Comment on above: Performed By: #### R PRQ #### [facility] [address] [place] [address] Dr. Valerio Alexis WBC 8.2 103/ul Normal 4.0-11.0 [facility] Comment on above: Performed By: #### R PRQ #### [facility] [address] [place] [address] Dr. Valerio Alexis GI PANEL (PCR)on 12-27-2022 Adenovirus F 40/41 Not detected Normal NOT DETECTED [facility] Comment on above: Performed By: #### U RCX #### [facility] [address] [place] [address] Dr. Valerio Alexis Astrovirus Not detected Normal NOT DETECTED [facility] Comment on above: Performed By: #### U RCX #### [facility] [address] [place] [address] Dr. Valerio Alexis C. Diff toxin A/B Not detected Normal NOT DETECTED [facility] Comment on above: Performed By: #### U RCX #### [facility] [address] [place] [address] Dr. Valerio Alexis Campylobacter Detected Critically abnormal NOT DETECTED [facility] Comment on above: Performed By: #### U RCX #### [facility] [address] [place] [address] Dr. Valerio Alexis Cryptosporidium Not detected Normal NOT DETECTED [facility] Comment on above: Performed By: #### U RCX #### [facility] [address] [place] [address] Dr. Valerio Alexis Cyclos. Cayetanensis Not detected Normal NOT DETECTED [facility] Comment on above: Performed By: #### U RCX #### [facility] [address] [place] [address] Dr. Valerio Alexis E. Coli O157 Not Applicable Normal Not Applicable [facility] Comment on above: Performed By: #### U RCX #### [facility] [address] [place] [address] Dr. Valerio Alexis E. histolytica Not detected Normal NOT DETECTED [facility] Comment on above: Performed By: #### U RCX #### [facility] [address] [place] [address] Dr. Valerio Alexis EAEC Not detected Normal NOT DETECTED [facility] Comment on above: Performed By: #### U RCX #### [facility] [address] [place] [address] Dr. Valerio Alexis EIEC Not detected Normal NOT DETECTED [facility] Comment on above: Performed By: #### U RCX #### [facility] [address] [address] [address] Valerio Alexis EPEC Not detected Normal NOT DETECTED [facility] Comment on above: Performed By: #### U RCX #### [facility] [address] [address] [address] Valerio Alexis ETEC Not detected Normal NOT DETECTED [facility] Comment on above: Performed By: #### U RCX #### [facility] [address] [address] [address] Valerio Alexis G. Lamblia Not detected Normal NOT DETECTED [facility] Comment on above: Performed By: #### U RCX #### [facility] [address] [place] [address] Dr. Valerio HUDSON CONTROLS PASSED Normal [facility] Comment on above: Performed By: #### U RCX #### [facility] [address] [address] [address] Valerio [facility] HEADER GI PANEL BACTERIA Normal [facility] Comment on above: Performed By: #### U RCX #### [facility] [address] [place] [address] Dr. Valerio LÓPEZ ECOLI GI PANEL DIARRHEAGENIC E.COLI / SHIGELLA Normal [facility] Comment on above: Performed By: #### U RCX #### [facility] [address] [place] [address] Dr. Valerio LÓPEZ INFO SEE BELOW [facility] Comment on above: Result Comment: EAEC - Enteroaggregative E. Coli EPEC- Enteropathogenic E. Coli ETEC- Enterotoxigenic E. Coli lt/st STEC- Shigella-like toxin-producing E. Coli stx1/stx2 EIEC- Shigella/Enteroinvasive E. Coli Performed By: #### U RCX #### [facility] [address] [place] [address] Dr. Valerio LÓPEZ PARASITES GI PANEL PARASITES Normal [facility] Comment on above: Performed By: #### U RCX #### [facility] [address] [address] [address] Valerio Alexis [facility] VIRUS GI PANEL VIRUSES Normal [facility] Comment on above: Performed By: #### U RCX #### [facility] [address] [place] [address] Dr. Valerio Alexis Norovirus GI/GII Not detected Normal NOT DETECTED [facility] Comment on above: Performed By: #### U RCX #### [facility] [address] [address] [address] Valerio Alexis P. Shigelloides Not detected Normal NOT DETECTED [facility] Comment on above: Performed By: #### U RCX #### [facility] [address] [place] [address] Dr. Valerio Alexis Rotavirus A Not detected Normal NOT DETECTED [facility] Comment on above: Performed By: #### U RCX #### [facility] [address] [place] [address] Dr. Valerio Alexis Salmonella Not detected Normal NOT DETECTED [facility] Comment on above: Performed By: #### U RCX #### [facility] [address] [place] [address] Dr. Valerio Alexis Sapovirus Not detected Normal NOT DETECTED [facility] Comment on above: Performed By: #### U RCX #### [facility] [address] [place] [address] Dr. Valerio Alexis STEC Not detected Normal NOT DETECTED [facility] Comment on above: Performed By: #### U RCX #### [facility] [address] [place] [address] Dr. Valerio Alexis Vibrio Not detected Normal NOT DETECTED [facility] Comment on above: Performed By: #### U RCX #### [facility] [address] [place] [address] Dr. Valerio Alexis Vibrio Cholera Not detected Normal NOT DETECTED [facility] Comment on above: Performed By: #### U RCX #### [facility] [address] [address] [address] Valerio Alexis Y. Enterocolitica Not detected Normal NOT DETECTED [facility] Comment on above: Performed By: #### U RCX #### [facility] [address] [place] [address] Dr. Valerio Alexis PROF CHEM 8 (BAS METB)on Anion gap [Moles/Vol] 14.7 mmol/L Normal [facility] Comment on above: Performed By: #### R PRQ #### [facility] [address] [place] [address] Dr. Valerio Alexis Calcium [Mass/Vol] 8.8 mg/dL Normal 8.5-10.1 [facility] Comment on above: Performed By: #### R PRQ #### [facility] [address] [place] [address] Dr. Valerio Alexis Chloride [Moles/Vol] 104 mmol/L Normal 98-107 [facility] Comment on above: Performed By: #### R PRQ #### [facility] [address] [place] [address] Dr. Valerio Alexis CO2 [Moles/Vol] 23.6 mmol/L Normal 21.0-32.0 [facility] Comment on above: Performed By: #### R PRQ #### [facility] [address] [place] [address] Dr. Valerio Alexis Creatinine [Mass/Vol] 0.72 mg/dL Normal 0.55-1.02 [facility] Comment on above: Performed By: #### R PRQ #### [facility] [address] [place] [address] Dr. Valerio Alexis EGFR-AF COOK ISLANDER >60 Normal >=60 [facility] Comment on above: Performed By: #### R PRQ #### [facility] [address] [place] [address] Dr. Valerio Alexis EGFR-NON AF COOK ISLANDER >60 Normal >=60 [facility] Comment on above: Performed By: #### R PRQ #### [facility] [address] [place] [address] Dr. Valerio Alexis Glucose [Mass/Vol] 77 mg/dL Normal 74-106 [facility] Comment on above: Performed By: #### R PRQ #### [facility] [address] [place] [address] Dr. Valerio Alexis Potassium [Moles/Vol] 3.3 mmol/L Critically low 3.5-5.1 [facility] Comment on above: Performed By: #### R PRQ #### [facility] [address] [place] [address] Dr. Valerio Alexis Sodium [Moles/Vol] 139 mmol/L Normal 136-145 [facility] Comment on above: Performed By: #### R PRQ #### [facility] [address] [place] [address] Dr. Valerio Alexis Urea nitrogen [Mass/Vol] 12.0 mg/dL Normal 7.0-18.0 [facility] Comment on above: Performed By: #### R PRQ #### [facility] [address] [place] [address] Dr. Valerio Alexis Urea nitrogen/Creatinine [Mass ratio] 16.7 mg/mg Normal [facility] Comment on above: Performed By: #### R PRQ #### [facility] [address] [place] [address] Dr. Valerio Alexis CBC AUTO DIFFon 11-19-2022 BASO # 0.0 103/ul Normal 0.0-0.1 [facility] Comment on above: Performed By: #### H IV12 #### [facility] [address] [place] [address] Dr. Valerio Alexis Basophils/100 WBC (Bld) 0.2 % Normal 0.2-2.0 [facility] Comment on above: Performed By: #### H IV12 #### [facility] [address] [place] [address] Dr. Valerio Alexis EO # 0.1 103/ul Normal 0.0-0.7 [facility] Comment on above: Performed By: #### H IV12 #### [facility] [address] [place] [address] Dr. Valerio Alexis Eosinophils/100 WBC (Bld) 1.7 % Normal 0.9-7.0 [facility] Comment on above: Performed By: #### H IV12 #### [facility] [address] [place] [address] Dr. Valerio Alexis Erythrocyte distribution width (RBC) [Ratio] 13.4 % Normal 11.0-15.0 [facility] Comment on above: Performed By: #### H IV12 #### [facility] [address] [place] [address] Dr. Valerio Alexis Hematocrit (Bld) [Volume fraction] 38.0 % Normal 36.0-48.0 [facility] Comment on above: Performed By: #### H IV12 #### [facility] [address] [place] [address] Dr. Valerio Alexis Hemoglobin (Bld) [Mass/Vol] 12.5 g/dL Normal 12.0-16.0 [facility] Comment on above: Performed By: #### H IV12 #### [facility] [address] [place] [address] Dr. Valerio Alexis IG # 0.02 10e3/ul Normal 0.00-0.03 [facility] Comment on above: Performed By: #### H IV12 #### [facility] [address] [place] [address] Dr. Valerio Alexis IG % 0.3 % Normal 0.0-0.5 [facility] Comment on above: Performed By: #### H IV12 #### [facility] [address] [place] [address] Dr. Valerio Alexis LYMPH # 1.7 103/ul Normal 1.2-3.8 [facility] Comment on above: Performed By: #### H IV12 #### [facility] [address] [place] [address] Dr. Valerio Alexis Lymphocytes/100 WBC (Bld) 25.9 % Normal 20.5-60.0 [facility] Comment on above: Performed By: #### H IV12 #### [facility] [address] [place] [address] Dr. Valerio Alexis MANUAL DIFF REQ NO Normal [facility] Comment on above: Performed By: #### H IV12 #### [facility] [address] [place] [address] Dr. Valerio Alexis MCH (RBC) [Entitic mass] 26.3 pg Critically low 26.7-34.0 [facility] Comment on above: Performed By: #### H IV12 #### [facility] [address] [place] [address] Dr. Valerio Alexis MCHC (RBC) [Mass/Vol] 32.9 g/dL Normal 29.9-35.2 [facility] Comment on above: Performed By: #### H IV12 #### [facility] [address] [place] [address] Dr. Valerio Alexis MCV (RBC) [Entitic vol] 80.0 fL Critically low 81.0-99.0 [facility] Comment on above: Performed By: #### H IV12 #### [facility] [address] [place] [address] Dr. Valerio Alexis MONO # 0.6 103/ul Normal 0.3-0.8 [facility] Comment on above: Performed By: #### H IV12 #### [facility] [address] [place] [address] Dr. Valerio Alexis Monocytes/100 WBC (Bld) 9.2 % Normal 1.7-12.0 [facility] Comment on above: Performed By: #### H IV12 #### [facility] [address] [place] [address] Dr. Valerio Alexis NEUT # 4.1 103/ul Normal 1.4-6.5 [facility] Comment on above: Performed By: #### H IV12 #### [facility] [address] [place] [address] Dr. Valerio Alexis Neutrophils/100 WBC (Bld) 62.7 % Normal 43.0-75.0 [facility] Comment on above: Performed By: #### H IV12 #### [facility] [address] [place] [address] Dr. Valerio Alexis Platelet mean volume (Bld) [Entitic vol] 10.4 fL Normal 9.5-13.5 [facility] Comment on above: Performed By: #### H IV12 #### [facility] [address] [address] [address] Valerio Alexis PLT 254 103/ul Normal 150-450 [facility] Comment on above: Performed By: #### H IV12 #### [facility] [address] [address] [address] Valerio Alexis RBC 4.75 106/ul Normal 4.20-5.40 [facility] Comment on above: Performed By: #### H IV12 #### [facility] [address] [address] [address] Valerio Alexis WBC 6.5 103/ul Normal 4.0-11.0 [facility] Comment on above: Performed By: #### H IV12 #### [facility] [address] [address] [address] ABD/PELVIS WO CONon 11-19 CT ABD/PELVIS WO CON EXAMINATION: CT ABD/PELVIS WO CON, 11/18/2022 11:09 PM EST HISTORY: CALCULUS OF KIDNEY COMPARISON: None. TECHNIQUE: CT scan of the abdomen and pelvis was performed without IV contrast. CT dose reduction technique was used, including Automated Exposure Control. FINDINGS: Limited evaluation of the viscera/organs and vasculature without intravenous contrast. TUBES AND IMPLANTS: None. LOWER CHEST: Unremarkable ABDOMEN and PELVIS ABDOMINAL WALL AND SOFT TISSUES: Unremarkable. BONES: Mild multilevel degenerative changes of the spine. ARTERIES: Incompletely evaluated. No aortoiliac aneurysm. VEINS: Incompletely evaluated. LYMPH NODES: Unremarkable. PERITONEUM/ RETROPERITONEUM: Trace pelvic fluid BOWEL: No obstruction APPENDIX: Unremarkable LIVER: Unremarkable. GALLBLADDER: Unremarkable. BILE DUCTS: Not dilated SPLEEN: Unremarkable. PANCREAS: Unremarkable. ADRENALS: Unremarkable. KIDNEYS/ URETERS: Unremarkable. REPRODUCTIVE ORGANS: Unremarkable URINARY BLADDER: Unremarkable. IMPRESSION: No evidence of acute intra-abdominal or intrapelvic process. No evidence of obstructive uropathy. Trace pelvic fluid unremarkable in a premenopausal female. Electronically authenticated by: MAHAD OLIVEROS Date: 2022-11-19 00:58 Normal [facility] ER URINE PROFILEon 3 Bilirubin Ql (U) Negative Normal NEGATIVE [facility] Comment on above: Performed By: #### H H #### [facility] [address] [place] [address] Dr. Valerio Alexis Clarity (U) CLEAR Normal CLEAR [facility] Comment on above: Performed By: #### H H #### [facility] [address] [place] [address] Dr. Valerio Alexis Color (U) LT. YELLOW Normal YELLOW [facility] Comment on above: Performed By: #### H H #### [facility] [address] [place] [address] Dr. Valerio Alexis ERUMOI A micrscopic examination will be performed if indicated. Normal [facility] Comment on above: Performed By: #### H H #### [facility] [address] [place] [address] Dr. Valerio Alexis Glucose Ql (U) Negative Normal NEGATIVE [facility] Comment on above: Performed By: #### H H #### [facility] [address] [place] [address] Dr. Valerio Alexis Hemoglobin Ql (U) Negative Normal NEGATIVE [facility] Comment on above: Performed By: #### H H #### [facility] [address] [place] [address] Dr. Valerio Alexis Ketones Ql (U) Negative Normal NEGATIVE [facility] Comment on above: Performed By: #### H H #### [facility] [address] [place] [address] Dr. Valerio Alexis LEUKOCYTES Negative Normal NEGATIVE [facility] Comment on above: Performed By: #### H H #### [facility] [address] [place] [address] Dr. Valerio Alexis Nitrite Ql (U) Negative Normal NEGATIVE [facility] Comment on above: Performed By: #### H H #### [facility] [address] [place] [address] Dr. Valerio Alexis pH (U) 6.0 [pH] Normal 5-9 [facility] Comment on above: Performed By: #### H H #### [facility] [address] [address] [address] Valerio Alexis SPEC GRAVITY 1.010 Normal 1.005-<=1.025 [facility] Comment on above: Performed By: #### H H #### [facility] [address] [address] [address] Valerio Alexis UA PROTEIN Negative Normal NEGATIVE/ TRACE [facility] Comment on above: Performed By: #### H H #### [facility] [address] [address] [address] Valerio Alexis UR MICRO IND NOT INDICATED Normal [facility] Comment on above: Performed By: #### H H #### [facility] [address] [place] [address] Dr. Valerio Alexis Urobilinogen Qn (U) 0.2 {Nicolas'U}/dL Normal 0.2 - 1. 0 [facility] Comment on above: Performed By: #### H H #### [facility] [address] [place] [address] Dr. Valerio Alexis PROF CHEM 8 (BAS METB)on Anion gap [Moles/Vol] 12.1 mmol/L Normal [facility] Comment on above: Performed By: #### H H #### [facility] [address] [place] [address] Dr. Valerio Alexis Calcium [Mass/Vol] 9.2 mg/dL Normal 8.5-10.1 [facility] Comment on above: Performed By: #### H H #### [facility] [address] [place] [address] Dr. Valerio Alexis Chloride [Moles/Vol] 104 mmol/L Normal 98-107 [facility] Comment on above: Performed By: #### H H #### [facility] [address] [place] [address] Dr. Valerio Alexis CO2 [Moles/Vol] 27.0 mmol/L Normal 21.0-32.0 [facility] Comment on above: Performed By: #### H H #### [facility] [address] [place] [address] Dr. Valerio Alexis Creatinine [Mass/Vol] 0.75 mg/dL Normal 0.55-1.02 [facility] Comment on above: Performed By: #### H H #### [facility] [address] [place] [address] Dr. Valerio Alexis EGFR-AF [place] ISLANDER >60 Normal >=60 [facility] Comment on above: Performed By: #### H H #### [facility] [address] [address] [address] Valerio Alexis EGFR-NON AF COOK ISLANDER >60 Normal >=60 [facility] Comment on above: Performed By: #### H H #### [facility] [address] [place] [address] Dr. Valerio Alexis Glucose [Mass/Vol] 83 mg/dL Normal 74-106 [facility] Comment on above: Performed By: #### H H #### [facility] [address] [place] [address] Dr. Valerio Alexis Potassium [Moles/Vol] 4.1 mmol/L Normal 3.5-5.1 [facility] Comment on above: Performed By: #### H H #### [facility] [address] [place] [address] Dr. Valerio Alexis Sodium [Moles/Vol] 139 mmol/L Normal 136-145 [facility] Comment on above: Performed By: #### H H #### [facility] [address] [place] [address] Dr. Valerio Alexis Urea nitrogen [Mass/Vol] 16.0 mg/dL Normal 7.0-18.0 [facility] Comment on above: Performed By: #### H H #### [facility] [address] [place] [address] Dr. Valerio Alexis Urea nitrogen/Creatinine [Mass ratio] 21.3 mg/mg Normal [facility] Comment on above: Performed By: #### H H #### [facility] [address] [place] [address] Dr. Valerio Alexis CHLAMYDIA/GONOCOCCUS CHULA (KATHLEEN AB/URINE/PAPon 10-27-2022 Chlamydia trachomatis, CHULA Negative Normal Negative [facility] Comment on above: Performed By: #### N BOX #### [facility] [address] [place] [address] Dr. Valerio Alexis Neisseria gonorrhoeae, CHULA Negative Normal Negative [facility] Comment on above: Performed By: #### N BOX #### [facility] [address] [place] [address] Dr. Valerio Alexis VAGINITIS/VAGINOSIS DNA PROB Dane 10-26-2022 Beata species Negative Normal Negative [facility] Comment on above: Performed By: #### R PRQ #### [facility] [address] [place] [address] Dr. Valerio Alexis Gardnerella vaginalis Positive Abnormal Negative [facility] Comment on above: Performed By: #### R PRQ #### [facility] [address] [place] [address] Dr. Valerio Alexis Trichomonas vaginalis Negative Normal Negative [facility] Comment on above: Performed By: #### R PRQ #### [facility] [address] [place] [address] Dr. Valerio Alexis MICRO OTHER TESTSOrdered By: Cesar Riggs on 09-27-2022 S. pyogenes Ag IA.rapid Ql (Throat) Negative (09/27/22 11:23 PM) Normal Negative [facility] [place] CBC AUTO DIFFon 08-25-2022 BASO # 0.0 103/ul Normal 0.0-0.1 [facility] Comment on above: Performed By: #### R PRQ #### [facility] [address] [place] [address] Dr. Valerio Alexis Basophils/100 WBC (Bld) 0.3 % Normal 0.2-2.0 [facility] Comment on above: Performed By: #### R PRQ #### [facility] [address] [place] [address] Dr. Valerio Alexis EO # 0.1 103/ul Normal 0.0-0.7 [facility] Comment on above: Performed By: #### R PRQ #### [facility] [address] [address] [address] Valerio Alexis Eosinophils/100 WBC (Bld) 0.7 % Critically low 0.9-7.0 [facility] Comment on above: Performed By: #### R PRQ #### [facility] [address] [place] [address] Dr. Valerio Alexis Erythrocyte distribution width (RBC) [Ratio] 13.6 % Normal 11.0-15.0 [facility] Comment on above: Performed By: #### R PRQ #### [facility] [address] [place] [address] Dr. Valerio Alexis Hematocrit (Bld) [Volume fraction] 28.2 % Critically low 36.0-48.0 [facility] Comment on above: Performed By: #### R PRQ #### [facility] [address] [place] [address] Dr. Valerio Alexis Hemoglobin (Bld) [Mass/Vol] 9.6 g/dL Critically low 12.0-16.0 [facility] Comment on above: Performed By: #### R PRQ #### [facility] [address] [place] [address] Dr. Valerio Alexis IG # 0.10 10e3/ul Critically high 0.00-0.03 [facility] Comment on above: Performed By: #### R PRQ #### [facility] [address] [address] [address] Valerio Alexis IG % 0.7 % Critically high 0.0-0.5 [facility] Comment on above: Performed By: #### R PRQ #### [facility] [address] [address] [address] Valerio Alexis LYMPH # 2.2 103/ul Normal 1.2-3.8 [facility] Comment on above: Performed By: #### R PRQ #### [facility] [address] [place] [address] Dr. Valerio Alexis Lymphocytes/100 WBC (Bld) 16.5 % Critically low 20.5-60.0 [facility] Comment on above: Performed By: #### R PRQ #### [facility] [address] [place] [address] Dr. Valerio Alexis MANUAL DIFF REQ NO Normal [facility] Comment on above: Performed By: #### R PRQ #### [facility] [address] [place] [address] Dr. Valerio Alexis MCH (RBC) [Entitic mass] 27.7 pg Normal 26.7-34.0 [facility] Comment on above: Performed By: #### R PRQ #### [facility] [address] [place] [address] Dr. Valerio Alexis MCHC (RBC) [Mass/Vol] 34.0 g/dL Normal 29.9-35.2 [facility] Comment on above: Performed By: #### R PRQ #### [facility] [address] [place] [address] Dr. Valerio Alexis MCV (RBC) [Entitic vol] 81.3 fL Normal 81.0-99.0 [facility] Comment on above: Performed By: #### R PRQ #### [facility] [address] [place] [address] Dr. Valerio Alexis MONO # 1.2 103/ul Critically high 0.3-0.8 [facility] Comment on above: Performed By: #### R PRQ #### [facility] [address] [place] [address] Dr. Valerio Alexis Monocytes/100 WBC (Bld) 8.7 % Normal 1.7-12.0 [facility] Comment on above: Performed By: #### R PRQ #### [facility] [address] [place] [address] Dr. Valerio Alexis NEUT # 9.9 103/ul Critically high 1.4-6.5 [facility] Comment on above: Performed By: #### R PRQ #### [facility] [address] [place] [address] Dr. Valerio Alexis Neutrophils/100 WBC (Bld) 73.1 % Normal 43.0-75.0 [facility] Comment on above: Performed By: #### R PRQ #### [facility] [address] [address] [address] Valerio Alexis Platelet mean volume (Bld) [Entitic vol] 9.9 fL Normal 9.5-13.5 [facility] Comment on above: Performed By: #### R PRQ #### [facility] [address] [address] [address] Valerio Alexis PLT 200 103/ul Normal 150-450 [facility] Comment on above: Performed By: #### R PRQ #### [facility] [address] [address] [address] Valerio Alexis RBC 3.47 106/ul Critically low 4.20-5.40 [facility] Comment on above: Performed By: #### R PRQ #### [facility] [address] [address] [address] Valerio Alexis WBC 13.5 103/ul Critically high 4.0-11.0 [facility] Comment on above: Performed By: #### R PRQ #### [facility] [address] [place] [address] Dr. Valerio Alexis CBC AUTO DIFFon 08-24-2022 BASO # 0.0 103/ul Normal 0.0-0.1 [facility] Comment on above: Performed By: #### H H #### [facility] [address] [place] [address] Dr. Valerio Alexis Basophils/100 WBC (Bld) 0.3 % Normal 0.2-2.0 [facility] Comment on above: Performed By: #### H H #### [facility] [address] [address] [address] Valerio Alexis EO # 0.1 103/ul Normal 0.0-0.7 [facility] Comment on above: Performed By: #### H H #### [facility] [address] [place] [address] Dr. Valerio Alexis Eosinophils/100 WBC (Bld) 0.5 % Critically low 0.9-7.0 [facility] Comment on above: Performed By: #### H H #### [facility] [address] [address] [address] Valerio Alexis Erythrocyte distribution width (RBC) [Ratio] 13.2 % Normal 11.0-15.0 [facility] Comment on above: Performed By: #### H H #### [facility] [address] [address] [address] Valerio Alexis Hematocrit (Bld) [Volume fraction] 32.4 % Critically low 36.0-48.0 [facility] Comment on above: Performed By: #### H H #### [facility] [address] [address] [address] Valerio Alexis Hemoglobin (Bld) [Mass/Vol] 10.9 g/dL Critically low 12.0-16.0 [facility] Comment on above: Performed By: #### H H #### [facility] [address] [place] [address] Dr. Valerio Alexis IG # 0.07 10e3/ul Critically high 0.00-0.03 [facility] Comment on above: Performed By: #### H H #### [facility] [address] [place] [address] Dr. Valerio Alexis IG % 0.6 % Critically high 0.0-0.5 [facility] Comment on above: Performed By: #### H H #### [facility] [address] [place] [address] Dr. Valerio Alexis LYMPH # 2.0 103/ul Normal 1.2-3.8 [facility] Comment on above: Performed By: #### H H #### [facility] [address] [address] [address] Valerio Alexis Lymphocytes/100 WBC (Bld) 18.4 % Critically low 20.5-60.0 [facility] Comment on above: Performed By: #### H H #### [facility] [address] [place] [address] Dr. Valerio Alexis MANUAL DIFF REQ NO Normal [facility] Comment on above: Performed By: #### H H #### [facility] [address] [address] [address] Valerio Alexis MCH (RBC) [Entitic mass] 27.1 pg Normal 26.7-34.0 [facility] Comment on above: Performed By: #### H H #### [facility] [address] [address] [address] Valerio Alexis MCHC (RBC) [Mass/Vol] 33.6 g/dL Normal 29.9-35.2 [facility] Comment on above: Performed By: #### H H #### [facility] [address] [address] [address] Valerio Alexis MCV (RBC) [Entitic vol] 80.6 fL Critically low 81.0-99.0 [facility] Comment on above: Performed By: #### H H #### [facility] [address] [place] [address] Dr. Valerio Alexis MONO # 0.9 103/ul Critically high 0.3-0.8 [facility] Comment on above: Performed By: #### H H #### [facility] [address] [address] [address] Valerio Alexis Monocytes/100 WBC (Bld) 8.5 % Normal 1.7-12.0 [facility] Comment on above: Performed By: #### H H #### [facility] [address] [place] [address] Dr. Valerio Alexsi NEUT # 7.7 103/ul Critically high 1.4-6.5 [facility] Comment on above: Performed By: #### H H #### [facility] [address] [place] [address] Dr. Valerio Alexis Neutrophils/100 WBC (Bld) 71.7 % Normal 43.0-75.0 [facility] Comment on above: Performed By: #### H H #### [facility] [address] [address] [address] Valerio Alexis Platelet mean volume (Bld) [Entitic vol] 9.8 fL Normal 9.5-13.5 [facility] Comment on above: Performed By: #### H H #### [facility] [address] [address] [address] Valerio Alexis PLT 273 103/ul Normal 150-450 [facility] Comment on above: Performed By: #### H H #### [facility] [address] [address] [address] Valerio Alexis RBC 4.02 106/ul Critically low 4.20-5.40 [facility] Comment on above: Performed By: #### H H #### [facility] [address] [address] [address] Valerio Alexis WBC 10.8 103/ul Normal 4.0-11.0 [facility] Comment on above: Performed By: #### H H #### [facility] [address] [address] [address] Valerio Alexis Covid-19 PCR ([facility])on 08-03 SARS-CoV-2 (COVID-19) RNA CHULA+probe Ql (Unsp spec) Not detected Normal NOT DETECTED [facility] Comment on above: Result Comment: When diagnostic testing is negative, the possibility of a false negative should be considered in the context of a patient's recent exposures and the presence of clinical signs and symptoms consistent with SARS-CoV-2. This test is not yet approved or cleared by the [place] FDA. When there are no FDA-approved or cleared tests available, and other criteria are met, FDA can make tests available under an emergency access mechanism called an Emergency Use Authorization (EUA). The EUA for this test is supported by the [place] [employer] and Human Service's declaration that circumstances exist to justify the emergency use of in vitro diagnostics for the detection and/or diagnosis of the virus that causes COVID-19. This EUA will remain in effect for the duration of the COVID-19 declaration justifying emergency of IVDs, unless it is terminated or revoked by the FDA (after which the test may no longer be used). Performed By: #### H H #### [facility] [address] [address] [address] Valerio Alexis DRUG SCREEN RAPID (URINE)on 08-24-2022 AMP Negative Normal NEGATIVE [facility] Comment on above: Performed By: #### H H #### [facility] [address] [place] [address] Dr. Valerio Alexis BAR Negative Normal NEGATIVE [facility] Comment on above: Performed By: #### H H #### [facility] [address] [place] [address] Dr. Valerio Alexis BUP Negative Normal NEGATIVE [facility] Comment on above: Performed By: #### H H #### [facility] [address] [place] [address] Dr. Valerio Alexis BZO Negative Normal NEGATIVE [facility] Comment on above: Performed By: #### H H #### [facility] [address] [place] [address] Dr. Valerio Alexis WENDY Negative Normal NEGATIVE [facility] Comment on above: Performed By: #### H H #### [facility] [address] [place] [address] Dr. Valerio Alexis CUT-OFFS SEE BELOW Normal [facility] Comment on above: Result Comment: AMP (Amphetamine): 500ng/mL, BAR (Barbituates): 200 ng/mL, BZO (Benzodiazepines): 150 ng/mL, BUP (Buprenorphine): 10 ng/mL, WENDY (Cocaine): 150 ng/mL, mAMP (Methamphetamine): 500 ng/mL, MTD (Methadone): 200 ng/mL, OPI (Opiates): 100 ng/mL, OXY (Oxycodone): 100 ng/mL, PCP (Phencyclidine): 25 ng/mL, PPX (Propoxyphene): 300 ng/mL, THC (Cannabinoids): 50 ng/mL, TCA (Trycyclic Antidepressants): 300 ng/mL Performed By: #### H H #### [facility] [address] [place] [address] Dr. Valerio Alexis DRUG CUT HEADER DRUG CLASS TEST SYSTEM CUT-OFF CONCENTRATIONS ARE FOLLOWS: Normal [facility] Comment on above: Performed By: #### H H #### [facility] [address] [place] [address] Dr. Valerio Alexis mAMP Negative Normal NEGATIVE [facility] Comment on above: Performed By: #### H H #### [facility] [address] [address] [address] Valerio Alexis MTD Negative Normal NEGATIVE [facility] Comment on above: Performed By: #### H H #### [facility] [address] [address] [address] Valerio Alexis OPI Negative Normal NEGATIVE [facility] Comment on above: Performed By: #### H H #### [facility] [address] [place] [address] Dr. Valerio Alexis OXY Negative Normal NEGATIVE [facility] Comment on above: Performed By: #### H H #### [facility] [address] [place] [address] Dr. Valerio Alexis PCP Negative Normal NEGATIVE [facility] Comment on above: Performed By: #### H H #### [facility] [address] [place] [address] Dr. Valerio Alexis PPX Negative Normal NEGATIVE [facility] Comment on above: Performed By: #### H H #### [facility] [address] [place] [address] Dr. Valerio Alexis TCA Negative Normal NEGATIVE [facility] Comment on above: Performed By: #### H H #### [facility] [address] [place] [address] Dr. Valerio Alexis THC Negative Normal NEGATIVE [facility] Comment on above: Performed By: #### H H #### [facility] [address] [place] [address] Dr. Valerio Alexis TYPE AND SCREENon 08-24-2022 TYPE AND SCREEN Negative Normal [facility] Comment on above: Performed By: #### T NS #### [facility] [address] [place] [address] Dr. Valerio Alexis US PREG BIOPHY W NON STRESSo n 08-22-2022 US PREG BIOPHY W NON STRESS EXAMINATION: US PREG BIOPHY W NON STRESS HISTORY: [id number] baby COMPARISON: 08/16/2022 TECHNIQUE: Ultrasound biophysical profile was performed in the radiology department. FINDINGS: BREATHING MOVEMENTS: 2.0 GROSS BODY MOVEMENTS: 2.0 TONE: 2.0 QUALITATIVE AMNIOTIC FLUID VOLUME: 2.0 PRESENTATION: Cephalic HEART RATE: 137.8 bpm H.B./min AMNIOTIC FLUID VOLUME: 10.3 cm cm GESTATIONAL AGE: 38 weeks 5 days CONCLUSION: Total biophysical profile score: 8.0 Electronically authenticated by: LEE CLAY Date: 2022-08-22 13:46 Normal [facility] US PREG UMBILICAL ARTERYon 1 10-22-2021 US PREG UMBILICAL ARTERY EXAMINATION: US PREG UMBILICAL ARTERY HISTORY: [id number] baby COMPARISON: No relevant comparison available. TECHNIQUE: Duplex Doppler evaluation of the umbilical arteries. FINDINGS: position: Cephalic presentation, longitudinal lie Amniotic fluid volume: 10.3 cm, normal. Largest pocket 4.5 cm Heart rate: 130 bpm Proximal umbilical artery: PSV/EDV: 78/32 cm/s. RI 0.6. Ratio 2.5 Mid umbilical artery: PSV/EDV: 59/31 cm/s. RI 0.47. Ratio 1.9 Distal umbilical artery: PSV/EDV: 84/44 cm/s. RI 0.48. Ratio 1.9 Forward flow identified throughout diastole IMPRESSION: Normal exam. Class 0. Umbilical Artery: Class 0 = Normal umbilical artery blood velocity Class I = increased RI or PI, but still forward flow in diastole Class II = Absent end diastolic flow (AEDF) Class III = Reversal of end diastolic flow (REDF) Resistive Index (RI)<1 Systolic/Diastolic ratio (S:D): An S:D ratio of 2-3 after 34 wks is normal Systolic/Diastolic ratio (S:D): Age 16: 3.01 for the 10th percentile, 4.25 for the 50th percentile, 6.07 for the 90th percentile Age 20: 3.16 for the 10th percentile, 4.04 for the 50th percentile, 5.24 for the 90th percentile Age 24: 2.70 for the 10th percentile, 3.50 for the 50th percentile, 4.75 for the 90th percentile Age 28: 2.41 for the 10th percentile, 3.02 for the 50th percentile, 3.97 for the 90th percentile Age 30: 2.43 for the 10th percentile, 3.04 for the 50th percentile, 3.80 for the 90th percentile Age 32: 2.27 for the 10th percentile, 2.73 for the 50th percentile, 3.57 for the 90th percentile Age 34: 2.08 for the 10th percentile, 2.52 for the 50th percentile, 3.41 for the 90th percentile Age 36: 1.96 for the 10th percentile, 2.35 for the 50th percentile, 3.15 for the 90th percentile Age 38: 1.89 for the 10th percentile, 2.24 for the 50th percentile, 3.10 for the 90th percentile Age 40: 1.88 for the 10th percentile, 2.22 for the 50th percentile, 2.68 for the 90th percentile Age 41: 1.93 for the 10th percentile, 2.21 for the 50th percentile, 2.55 for the 90th percentile Age 42: 1.91 for the 10th percentile, 2.51 for the 50th percentile, 3.21 for the 90th percentile Uteroplacental Artery: Resistive Index (RI): Normal=<0.55 High Resistance=Bilateral notches (after 26 wks) and RI>0.55. Unilateral notches (after 26 wks) and RI>0.65 Systolic/Diastolic ratio (S:D) = 2-3 is normal after 32 weeks. Electronically authenticated by: LEE CLAY Date: 2022-08-22 13:48 Normal [facility] US PREG BIOPHY W NON STRESSo n 08-17-2022 US PREG BIOPHY W NON STRESS EXAMINATION: US PREG BIOPHY W NON STRESS HISTORY: [id number] baby COMPARISON: Ultrasound biophysical 08/15/2022 TECHNIQUE: Ultrasound biophysical profile was performed. FINDINGS: IMPRESSION: BREATHING MOVEMENTS: 2.0 GROSS BODY MOVEMENTS: 2.0 TONE: 2.0 QUALITATIVE AMNIOTIC FLUID VOLUME: 2.0 PRESENTATION: Cephalic HEART RATE: 142.9 bpm bpm. AMNIOTIC FLUID VOLUME: 12.7 cm GESTATIONAL AGE: 37 weeks 6 days CONCLUSION: Total biophysical profile score 8.0. Electronically authenticated by: TEAGAN ENRIQUE Date: 2022-08-17 06:47 Normal [facility] US PREG BIOPHY W NON STRESSo n 08-15-2022 US PREG BIOPHY W NON STRESS EXAMINATION: US PREG BIOPHY W NON STRESS HISTORY: Poor growth affecting management COMPARISON: No relevant comparison available. TECHNIQUE: Ultrasound biophysical profile was performed in the radiology department. FINDINGS: BREATHING MOVEMENTS: 2.0 GROSS BODY MOVEMENTS: 0.0 TONE: 2.0 QUALITATIVE AMNIOTIC FLUID VOLUME: 2.0 PRESENTATION: CEPHALIC HEART RATE: 153.4 bpm H.B./min AMNIOTIC FLUID VOLUME: 8.3 cm cm GESTATIONAL AGE: 37 weeks 5 days CONCLUSION: Total biophysical profile score: 6.0 Electronically authenticated by: LEE CLAY Date: 2022-08-15 16:37 Normal [facility] US PREG UMBILICAL ARTERYon 1 10-15-2021 US PREG UMBILICAL ARTERY EXAM: US PREG UMBILICAL ARTERY HISTORY: [id number] baby EXAMINATION: US PREG UMBILICAL ARTERY HISTORY: [id number] baby COMPARISON: No relevant comparison available. TECHNIQUE: Duplex Doppler evaluation of the umbilical arteries. FINDINGS: position: Cephalic presentation, longitudinal lie Amniotic fluid volume: Normal Heart rate: 139 bpm Proximal umbilical artery: PSV/EDV: 4/30 cm/s. RI 0.63. Ratio 2.7 Mid umbilical artery: PSV/EDV: 69/38 cm/s. RI 0.45. Ratio 1.8 Distal umbilical artery: PSV/EDV: 97/53 cm/s. RI 0.45. Ratio 1.8 4. Flow identified throughout diastole Gestational age: 37 weeks 5 days IMPRESSION: Normal exam. Class 0 Umbilical Artery: Class 0 = Normal umbilical artery blood velocity Class I = increased RI or PI, but still forward flow in diastole Class II = Absent end diastolic flow (AEDF) Class III = Reversal of end diastolic flow (REDF) Resistive Index (RI)<1 Systolic/Diastolic ratio (S:D): An S:D ratio of 2-3 after 34 wks is normal Systolic/Diastolic ratio (S:D): Age 16: 3.01 for the 10th percentile, 4.25 for the 50th percentile, 6.07 for the 90th percentile Age 20: 3.16 for the 10th percentile, 4.04 for the 50th percentile, 5.24 for the 90th percentile Age 24: 2.70 for the 10th percentile, 3.50 for the 50th percentile, 4.75 for the 90th percentile Age 28: 2.41 for the 10th percentile, 3.02 for the 50th percentile, 3.97 for the 90th percentile Age 30: 2.43 for the 10th percentile, 3.04 for the 50th percentile, 3.80 for the 90th percentile Age 32: 2.27 for the 10th percentile, 2.73 for the 50th percentile, 3.57 for the 90th percentile Age 34: 2.08 for the 10th percentile, 2.52 for the 50th percentile, 3.41 for the 90th percentile Age 36: 1.96 for the 10th percentile, 2.35 for the 50th percentile, 3.15 for the 90th percentile Age 38: 1.89 for the 10th percentile, 2.24 for the 50th percentile, 3.10 for the 90th percentile Age 40: 1.88 for the 10th percentile, 2.22 for the 50th percentile, 2.68 for the 90th percentile Age 41: 1.93 for the 10th percentile, 2.21 for the 50th percentile, 2.55 for the 90th percentile Age 42: 1.91 for the 10th percentile, 2.51 for the 50th percentile, 3.21 for the 90th percentile Uteroplacental Artery: Resistive Index (RI): Normal=<0.55 High Resistance=Bilateral notches (after 26 wks) and RI>0.55. Unilateral notches (after 26 wks) and RI>0.65 Systolic/Diastolic ratio (S:D) = 2-3 is normal after 32 weeks. Electronically authenticated by: LEE CLAY Date: 2022-08-15 16:55 Normal [facility] US PREG BIOPHY W NON STRESSo n 08-08-2022 US PREG BIOPHY W NON STRESS EXAMINATION: US PREG BIOPHY W NON STRESS HISTORY: Poor growth affecting management COMPARISON: No relevant comparison available. TECHNIQUE: Ultrasound biophysical profile was performed in the radiology department. FINDINGS: BREATHING MOVEMENTS: 2.0 GROSS BODY MOVEMENTS: 2.0 TONE: 2.0 QUALITATIVE AMNIOTIC FLUID VOLUME: 2.0 PRESENTATION: CEPHALIC HEART RATE: 160.7 bpm H.B./min AMNIOTIC FLUID VOLUME: 9.2 cm cm GESTATIONAL AGE: 36 weeks 5 days CONCLUSION: Total biophysical profile score: 8.0 Electronically authenticated by: LEE CLAY Date: 2022-08-08 16:59 Normal [facility] US PREG UMBILICAL ARTERYon 1 10-08-2021 US PREG UMBILICAL ARTERY EXAM: US PREG UMBILICAL ARTERY HISTORY: [id number] baby COMPARISON: 08/01/2022 TECHNIQUE: Grayscale, color and Doppler ultrasound FINDINGS: Gestational age: 36 weeks 5 days Umbilical arteries: 2 position: Cephalic presentation, longitudinal lie Amniotic fluid: 9.2 cm. The largest fluid pocket 3.6 cm Heart rate: 161 bpm Forward flow throughout diastole Proximal umbilical artery: PSV/EDV: 128/39 cm/s. Resistive index 0.69. Ratio 3.2 Mid umbilical artery: PSV/EDV: 112/34 cm/s. Resistive index 0.69. Ratio 3.3 Distal umbilical artery: PSV/EDV: 114/39 cm/s. Resistive index 0.66. Ratio 2.9 IMPRESSION: Normal exam. Class 0 Umbilical Artery: Class 0 = Normal umbilical artery blood velocity Class I = increased RI or PI, but still forward flow in diastole Class II = Absent end diastolic flow (AEDF) Class III = Reversal of end diastolic flow (REDF) Resistive Index (RI)<1 Systolic/Diastolic ratio (S:D): An S:D ratio of 2-3 after 34 wks is normal Systolic/Diastolic ratio (S:D): Age 16: 3.01 for the 10th percentile, 4.25 for the 50th percentile, 6.07 for the 90th percentile Age 20: 3.16 for the 10th percentile, 4.04 for the 50th percentile, 5.24 for the 90th percentile Age 24: 2.70 for the 10th percentile, 3.50 for the 50th percentile, 4.75 for the 90th percentile Age 28: 2.41 for the 10th percentile, 3.02 for the 50th percentile, 3.97 for the 90th percentile Age 30: 2.43 for the 10th percentile, 3.04 for the 50th percentile, 3.80 for the 90th percentile Age 32: 2.27 for the 10th percentile, 2.73 for the 50th percentile, 3.57 for the 90th percentile Age 34: 2.08 for the 10th percentile, 2.52 for the 50th percentile, 3.41 for the 90th percentile Age 36: 1.96 for the 10th percentile, 2.35 for the 50th percentile, 3.15 for the 90th percentile Age 38: 1.89 for the 10th percentile, 2.24 for the 50th percentile, 3.10 for the 90th percentile Age 40: 1.88 for the 10th percentile, 2.22 for the 50th percentile, 2.68 for the 90th percentile Age 41: 1.93 for the 10th percentile, 2.21 for the 50th percentile, 2.55 for the 90th percentile Age 42: 1.91 for the 10th percentile, 2.51 for the 50th percentile, 3.21 for the 90th percentile Uteroplacental Artery: Resistive Index (RI): Normal=<0.55 High Resistance=Bilateral notches (after 26 wks) and RI>0.55. Unilateral notches (after 26 wks) and RI>0.65 Systolic/Diastolic ratio (S:D) = 2-3 is normal after 32 weeks. Electronically authenticated by: LEE CLAY Date: 2022-08-08 17:03 Normal [facility] BUNon 08-05-2022 Urea nitrogen [Mass/Vol] 11.0 mg/dL Normal 7.0-18.0 [facility] Comment on above: Performed By: #### N BOX #### [facility] [address] [place] [address] Dr. Valerio Alexis CBC AUTO DIFFon 08-05-2022 BASO # 0.0 103/ul Normal 0.0-0.1 [facility] Comment on above: Performed By: #### N BOX #### [facility] [address] [place] [address] Dr. Valerio Alexis Basophils/100 WBC (Bld) 0.3 % Normal 0.2-2.0 [facility] Comment on above: Performed By: #### N BOX #### [facility] [address] [place] [address] Dr. Valerio Alexis EO # 0.0 103/ul Normal 0.0-0.7 [facility] Comment on above: Performed By: #### N BOX #### [facility] [address] [place] [address] Dr. Valerio Alexis Eosinophils/100 WBC (Bld) 0.3 % Critically low 0.9-7.0 [facility] Comment on above: Performed By: #### N BOX #### [facility] [address] [place] [address] Dr. Valerio Alexis Erythrocyte distribution width (RBC) [Ratio] 12.9 % Normal 11.0-15.0 [facility] Comment on above: Performed By: #### N BOX #### [facility] [address] [place] [address] Dr. Valerio Alexis Hematocrit (Bld) [Volume fraction] 33.3 % Critically low 36.0-48.0 [facility] Comment on above: Performed By: #### N BOX #### [facility] [address] [place] [address] Dr. Valerio Alexis Hemoglobin (Bld) [Mass/Vol] 11.0 g/dL Critically low 12.0-16.0 [facility] Comment on above: Performed By: #### N BOX #### [facility] [address] [place] [address] Dr. Valerio Alexis IG # 0.14 10e3/ul Critically high 0.00-0.03 [facility] Comment on above: Performed By: #### N BOX #### [facility] [address] [place] [address] Dr. Valerio Alexis IG % 0.9 % Critically high 0.0-0.5 [facility] Comment on above: Performed By: #### N BOX #### [facility] [address] [place] [address] Dr. Valerio Alexis LYMPH # 1.4 103/ul Normal 1.2-3.8 [facility] Comment on above: Performed By: #### N BOX #### [facility] [address] [place] [address] Dr. Valerio Alexis Lymphocytes/100 WBC (Bld) 8.8 % Critically low 20.5-60.0 [facility] Comment on above: Performed By: #### N BOX #### [facility] [address] [place] [address] Dr. Valerio Alexis MANUAL DIFF REQ NO Normal [facility] Comment on above: Performed By: #### N BOX #### [facility] [address] [place] [address] Dr. Valerio Alexis MCH (RBC) [Entitic mass] 27.8 pg Normal 26.7-34.0 [facility] Comment on above: Performed By: #### N BOX #### [facility] [address] [address] [address] Valerio Alexis MCHC (RBC) [Mass/Vol] 33.0 g/dL Normal 29.9-35.2 [facility] Comment on above: Performed By: #### N BOX #### [facility] [address] [place] [address] Dr. Valerio Alexis MCV (RBC) [Entitic vol] 84.3 fL Normal 81.0-99.0 [facility] Comment on above: Performed By: #### N BOX #### [facility] [address] [place] [address] Dr. Valerio Alexis MONO # 1.1 103/ul Critically high 0.3-0.8 [facility] Comment on above: Performed By: #### N BOX #### [facility] [address] [place] [address] Dr. Valerio Alexis Monocytes/100 WBC (Bld) 7.0 % Normal 1.7-12.0 [facility] Comment on above: Performed By: #### N BOX #### [facility] [address] [place] [address] Dr. Valerio Alexis NEUT # 13.1 103/ul Critically high 1.4-6.5 [facility] Comment on above: Performed By: #### N BOX #### [facility] [address] [place] [address] Dr. Valerio Alexis Neutrophils/100 WBC (Bld) 82.7 % Critically high 43.0-75.0 [facility] Comment on above: Performed By: #### N BOX #### [facility] [address] [place] [address] Dr. Valerio Alexis Platelet mean volume (Bld) [Entitic vol] 10.8 fL Normal 9.5-13.5 [facility] Comment on above: Performed By: #### N BOX #### [facility] [address] [place] [address] Dr. Valerio Alexis PLT 202 103/ul Normal 150-450 [facility] Comment on above: Performed By: #### N BOX #### [facility] [address] [address] [address] Valerio Alexis RBC 3.95 106/ul Critically low 4.20-5.40 [facility] Comment on above: Performed By: #### N BOX #### [facility] [address] [address] [address] Valerio Alexis WBC 15.9 103/ul Critically high 4.0-11.0 [facility] Comment on above: Performed By: #### N BOX #### [facility] [address] [address] [address] Valerio Alexis CREATININEon 08-05-2022 Creatinine [Mass/Vol] 0.64 mg/dL Normal 0.55-1.02 [facility] Comment on above: Performed By: #### N BOX #### [facility] [address] [address] [address] Valerio Alexis EGFR-AF COOK ISLANDER >60 Normal >=60 [facility] Comment on above: Performed By: #### N BOX #### [facility] [address] [address] [address] Valerio Alexis EGFR-NON AF COOK ISLANDER >60 Normal >=60 The [facility] Comment on above: Performed By: #### N BOX #### [facility] [address] [address] [address] Valerio Alexis CULTURE URINEon 08-05-2022 CULTURE URINE Culture Observations: LIGHT GROWTH OF MIXED GENITAL RICK. NO POTENTIAL PATHOGENS SEEN. Normal The [facility] Comment on above: Performed By: #### N BOX #### [facility] [address] [place] [address] Dr. Valerio Alexis UA (CLEAN/CATCH) ORDER BOOKER/MICRO I F IND.on 08-05-2022 Bilirubin Ql (U) Negative Normal NEGATIVE [facility] Comment on above: Performed By: #### N BOX #### [facility] [address] [place] [address] Dr. Valerio Alexis Clarity (U) CLEAR Normal CLEAR The [facility] Comment on above: Performed By: #### N BOX #### [facility] [address] [address] [address] Valerio Alexis Color (U) LT. YELLOW Normal YELLOW [facility] Comment on above: Performed By: #### N BOX #### [facility] [address] [address] [address] Valerio Alexis Glucose Ql (U) Negative Normal NEGATIVE [facility] Comment on above: Performed By: #### N BOX #### [facility] [address] [place] [address] Dr. Valerio Alexis Hemoglobin Ql (U) LARGE Abnormal NEGATIVE [facility] Comment on above: Performed By: #### N BOX #### [facility] [address] [place] [address] Dr. Valerio Alexis Ketones Ql (U) Negative Normal NEGATIVE [facility] Comment on above: Performed By: #### N BOX #### [facility] [address] [place] [address] Dr. Valerio Alexis LEUKOCYTES SMALL Abnormal NEGATIVE [facility] Comment on above: Performed By: #### N BOX #### [facility] [address] [address] [address] Valerio Alexis Nitrite Ql (U) Positive Abnormal NEGATIVE [facility] Comment on above: Performed By: #### N BOX #### [facility] [address] [place] [address] Dr. Valerio Alexis pH (U) 6.5 [pH] Normal 5-9 [facility] Comment on above: Performed By: #### N BOX #### [facility] [address] [place] [address] Dr. Valerio Aelxis SPEC GRAVITY 1.020 Normal 1.005-<=1.025 [facility] Comment on above: Performed By: #### N BOX #### [facility] [address] [place] [address] Dr. Valerio Alexis UA PROTEIN 30 mg/dl Abnormal NEGATIVE/ TRACE The [facility] Comment on above: Performed By: #### N BOX #### [facility] [address] [place] [address] Dr. Valerio Alexis UR MICRO IND INDICATED Normal The [facility] Comment on above: Performed By: #### N BOX #### [facility] [address] [place] [address] Dr. Valerio Alexis Urobilinogen Qn (U) 0.2 {Nicolas'U}/dL Normal 0.2 - 1. 0 The [facility] Comment on above: Performed By: #### N BOX #### [facility] [address] [place] [address] Dr. Valerio Alexis URINE MICROSCOPIC ONLYon BACTERIA TRACE Abnormal NONE SEEN The [facility] Comment on above: Performed By: #### N BOX #### [facility] [address] [place] [address] Dr. Valerio Alexis Bacteria identified Cx Nom (U) INDICATED Normal The [facility] Comment on above: Performed By: #### N BOX #### [facility] [address] [place] [address] Dr. Valerio Alexis CAST NONE SEEN Normal NONE SEEN [facility] Comment on above: Performed By: #### N BOX #### [facility] [address] [place] [address] Dr. Valerio Alexis Crystals LM Nom (Urine sed) NONE SEEN Normal NONE SEEN [facility] Comment on above: Performed By: #### N BOX #### [facility] [address] [place] [address] Dr. Valerio Alexis Epithelial cells LM Ql (Urine sed) RARE Normal NONE SEEN /RARE The [facility] Comment on above: Performed By: #### N BOX #### [facility] [address] [place] [address] Dr. Valerio Alexis MUCOUS NONE SEEN Normal NONE SEEN The [facility] Comment on above: Performed By: #### N BOX #### [facility] [address] [place] [address] Dr. Valerio Alexis RBC NONE SEEN Abnormal 0-2 The [facility] Comment on above: Performed By: #### N BOX #### [facility] [address] [place] [address] Dr. Valerio Alexis WBC 5-10 Abnormal NONE SEEN The [facility] Comment on above: Performed By: #### N BOX #### [facility] [address] [place] [address] [id number] [address] Valerio Alexis GROUP B STREP CULTUREon 11-0 S. agalactiae Ag Ql (Unsp spec) Culture Observations: NEGATIVE FOR GROUP B STREPTOCOCCUS. Normal [facility] Comment on above: Performed By: #### G BSCX #### [facility] [address] [place] [address] Dr. Valerio Alexis US PREG BIOPHY W NON STRESSo n 08-02-2022 US PREG BIOPHY W NON STRESS EXAMINATION: US PREG BIOPHY W NON STRESS HISTORY: Poor growth affecting management COMPARISON: Ultrasound biophysical 07/28/2022 TECHNIQUE: Ultrasound biophysical profile was performed. FINDINGS: BREATHING MOVEMENTS: 2.0 GROSS BODY MOVEMENTS: 2.0 TONE: 2.0 QUALITATIVE AMNIOTIC FLUID VOLUME: 2.0 PRESENTATION: CEPHALIC HEART RATE: 136.4 bpm bpm. AMNIOTIC FLUID VOLUME: 12.0 cm GESTATIONAL AGE: 35 weeks 5 days CONCLUSION: Total biophysical profile score 8.0. Electronically authenticated by: TEAGAN ENRIQUE Date: 2022-08-02 05:48 Normal [facility] US PREG UMBILICAL ARTERYon 1 10-02-2021 US PREG UMBILICAL ARTERY EXAMINATION: US PREG UMBILICAL ARTERY HISTORY: [id number] baby COMPARISON: Ultrasound umbilical artery 07/28/2022 TECHNIQUE: Duplex Doppler evaluation of the umbilical arteries. FINDINGS: HEART RATE: 135 bpm UMBILICAL ARTERIES: 2 GESTATIONAL AGE: 35 weeks 5 days WAVEFORM: Normal upstroke. No notching. Forward flow in diastole. PEAK SYSTOLIC VELOCITY: 84 cm/s END DIASTOLIC VELOCITY: 33 cm/s SYST/DIAST RATIO (S:D): 2.3 RESISTIVE INDEX: 0.6 IMPRESSION: Class 0 = Normal umbilical artery blood velocity Electronically authenticated by: TEAGAN ENRIQUE Date: 2022-08-02 05:54 Normal The [facility] US PREG BIOPHYSICAL NO NSTon 07-28-2022 US PREG BIOPHYSICAL NO NST EXAMINATION: US PREG BIOPHYSICAL NO NST HISTORY: Small for gestational age fetus COMPARISON: Ultrasound biophysical and 2521 TECHNIQUE: Ultrasound biophysical profile was performed. FINDINGS: BREATHING MOVEMENTS: 2.0 GROSS BODY MOVEMENTS: 2.0 TONE: 2.0 QUALITATIVE AMNIOTIC FLUID VOLUME: 2.0 PRESENTATION: Cephalic HEART RATE: 163.6 bpm bpm. AMNIOTIC FLUID VOLUME: 13.0 cm GESTATIONAL AGE: 35 weeks 1 days CONCLUSION: Total biophysical profile score 8.0. Electronically authenticated by: TEAGAN ENRIQUE Date: 2022-07-28 16:40 Normal [facility] US PREG GROWTHon 07-28-2022 US PREG GROWTH EXAMINATION: US PREG GROWTH HISTORY: Small for gestational age fetus COMPARISON: No relevant comparison available. FINDINGS: Heart Rate: 153.0 bpm Number: 1.0 Position: Cephalic Amniotic Fluid Volume: 9.3 cm Maximum Vertical Pocket: 3.8 cm BIOMETRY: BPD: 8.0 cm cm; 32 weeks 2 days; < 3% HC: 30.5 cmcm; 34 weeks 0 days; 4% AC: 27.7 cm cm; 31 weeks 5 days; <3% FL: 6.5 cm cm; 33 weeks 2 days; 7% EFW: 1985.7 grams; < 3% FL/AC: 23.3 FL/BPD: 80.5 HC/AC: 1.1 GESTATIONAL AGE: Age by EDC: 35 weeks 1 days JOSE by EDC: 08/31/2022 Age by US: 32 weeks 6 days JOSE by US: 09/16/2022 IMPRESSION: 1. Single live intrauterine with growth detailed above. 2. Estimated weight is less than 3rd percentile. 3. Dr. Harding was notified by the metal stamping machine operator at time of imaging. Electronically authenticated by: TEAGAN ENRIQUE Date: 2022-07-28 16:48 Normal The [facility] PREG UMBILICAL ARTERYon 1 US PREG UMBILICAL ARTERY EXAMINATION: US PREG UMBILICAL ARTERY HISTORY: Small for gestational age fetus COMPARISON: No relevant comparison available. TECHNIQUE: Duplex Doppler evaluation of the umbilical arteries. FINDINGS: HEART RATE: 146 bpm UMBILICAL ARTERIES: 2 GESTATIONAL AGE: 35 weeks 1 day WAVEFORM: Normal upstroke. No notching. Forward flow in diastole. PEAK SYSTOLIC VELOCITY: 91 cm/s END DIASTOLIC VELOCITY: 43 cm/s SYST/DIAST RATIO (S:D): 2.1 RESISTIVE INDEX: 0.5 IMPRESSION: Class 0 = Normal umbilical artery blood velocity Electronically authenticated by: TEAGAN ENRIQUE Date: 2022-07-28 13:25 Normal [facility] US PREG BIOPHY W NON STRESSo n 07-26-2022 US PREG BIOPHY W NON STRESS EXAMINATION: US PREG BIOPHY W NON STRESS HISTORY: Poor growth affecting management COMPARISON: Ultrasound biophysical 07/25/2022 TECHNIQUE: Ultrasound biophysical profile was performed. FINDINGS: BREATHING MOVEMENTS: 2.0 GROSS BODY MOVEMENTS: 2.0 TONE: 2.0 QUALITATIVE AMNIOTIC FLUID VOLUME: 2.0 PRESENTATION: Cephalic HEART RATE: 137.1 bpm bpm. AMNIOTIC FLUID VOLUME: 14.5 cm GESTATIONAL AGE: 34 weeks 6 days CONCLUSION: Total biophysical profile score 8.0. Electronically authenticated by: TEAGAN ENRIQUE Date: 2022-07-26 16:06 Normal [facility] US PREG BIOPHY W NON STRESS EXAMINATION: US PREG BIOPHY W NON STRESS HISTORY: Poor growth affecting management COMPARISON: No relevant comparison available. TECHNIQUE: Ultrasound biophysical profile was performed in the radiology department. non-reactive stress testing was performed by nursing staff in the birthing center. FINDINGS: BREATHING MOVEMENTS: 0.0 GROSS BODY MOVEMENTS: 2.0 TONE: 2.0 QUALITATIVE AMNIOTIC FLUID VOLUME: 2.0 PRESENTATION: CEPHALIC HEART RATE: 141.4 bpm H.B./min AMNIOTIC FLUID VOLUME: 11.7 cm cm GESTATIONAL AGE: 34 weeks 5 days CONCLUSION: Total biophysical profile score: 6.0 Electronically authenticated by: LEE CLAY Date: 2022-07-26 07:14 Normal [facility] US PREG BIOPHY W NON STRESSo n 07-19-2022 US PREG BIOPHY W NON STRESS EXAMINATION: US PREG BIOPHY W NON STRESS HISTORY: Poor growth affecting management COMPARISON: No relevant comparison available. TECHNIQUE: Ultrasound biophysical profile was performed. FINDINGS: BREATHING MOVEMENTS: 2.0 GROSS BODY MOVEMENTS: 2.0 TONE: 2.0 QUALITATIVE AMNIOTIC FLUID VOLUME: 2.0 PRESENTATION: CEPHALIC HEART RATE: 137.8 bpm bpm. AMNIOTIC FLUID VOLUME: 13.0 cm GESTATIONAL AGE: 33 weeks 6 days CONCLUSION: Total biophysical profile score 8.0. Electronically authenticated by: TEAGAN ENRIQUE Date: 2022-07-19 20:21 Normal [facility] US PREG GROWTHon 07-13-2022 US PREG GROWTH EXAMINATION: US PREG GROWTH HISTORY: Small for gestational age fetus COMPARISON: No relevant comparison available. FINDINGS: Heart Rate: 149.0 bpm Number: 1.0 Position: CEPHALIC Amniotic Fluid Volume: 11.7 cm Maximum Vertical Pocket: 3.8 cm BIOMETRY: BPD: 7.9 cm cm; 31 weeks 4 days; 11% HC: 29.0 cmcm; 32 weeks 0 days; 4% AC: 26.1 cm cm; 30 weeks 2 days; <3% FL: 6.2 cm cm; 32 weeks 0 days; 18% EFW: 1694.9 grams; 5% FL/AC: 23.6 FL/BPD: 78.5 HC/AC: 1.1 GESTATIONAL AGE: Age by EDC: 32 weeks 6 days JOSE by EDC: 08/31/2022 Age by US: 31 weeks 3 days JOSE by US: 09/10/2022 IMPRESSION: 1. Single live intrauterine with growth detailed above. 2. Estimated weight is at 5th percentile. 3. Dense, echogenic debris within the stomach, likely inspissated secretions. Follow-up recommended. 4. Dr. Harding notified of low weight by metal stamping machine operator at time of imaging. Electronically authenticated by: TEAGAN ENRIQUE Date: 2022-07-12 22:01 Normal The [facility] GLUCOSE - 1HRon 05-31-2022 Glucose [Mass/Vol] 110 mg/dL Critically high 74-106 [facility] Comment on above: Performed By: #### R PRQ #### [facility] [address] [place] [address] Dr. Valerio Alexis HEMOGRAM AND PLATELon 2021 Hematocrit (Bld) [Volume fraction] 31.6 % Critically low 36.0-48.0 [facility] Comment on above: Performed By: #### H H #### [facility] [address] [place] [address] Dr. Valerio Alexis Hemoglobin (Bld) [Mass/Vol] 10.7 g/dL Critically low 12.0-16.0 [facility] Comment on above: Performed By: #### H H #### [facility] [address] [place] [address] Dr. Valerio Alexis MCH (RBC) [Entitic mass] 29.7 pg Normal 26.7-34.0 [facility] Comment on above: Performed By: #### H H #### [facility] [address] [place] [address] Dr. Valerio Alexis MCHC (RBC) [Mass/Vol] 33.9 g/dL Normal 29.9-35.2 [facility] Comment on above: Performed By: #### H H #### [facility] [address] [place] [address] Dr. Valerio Alexis MCV (RBC) [Entitic vol] 87.8 fL Normal 81.0-99.0 [facility] Comment on above: Performed By: #### H H #### [facility] [address] [place] [address] Dr. Valerio Alexis PLT 179 103/ul Normal 150-450 [facility] Comment on above: Performed By: #### H H #### [facility] [address] [place] [address] Dr. Valerio Alexis RBC 3.60 106/ul Critically low 4.20-5.40 [facility] Comment on above: Performed By: #### H H #### [facility] [address] [place] [address] Dr. Valerio Alexis WBC 8.9 103/ul Normal 4.0-11.0 [facility] Comment on above: Performed By: #### H H #### [facility] [address] [place] [address] Dr. Valerio Alexis CHLAMYDIA/GONOCOCCUS CHULA ( AB/URINE/PAPon 05-21-2022 Chlamydia trachomatis, CHULA Negative Normal Negative [facility] Comment on above: Performed By: #### R PRQ #### [facility] [address] [place] [address] Dr. Valerio Alexis Neisseria gonorrhoeae, CHULA Negative Normal Negative [facility] Comment on above: Performed By: #### R PRQ #### [facility] [address] [place] [address] Dr. Valerio Alexis VAGINITIS/VAGINOSIS DNA PROB Dane 05-21-2022 Beata species Negative Normal Negative [facility] Comment on above: Performed By: #### H IV12 #### [facility] [address] [address] [address] Valerio Alexis Gardnerella vaginalis Positive Abnormal Negative [facility] Comment on above: Performed By: #### H IV12 #### [facility] [address] [address] [address] Valerio Alexis Trichomonas vaginalis Negative Normal Negative [facility] Comment on above: Performed By: #### H IV12 #### [facility] [address] [address] [address] Valerio Alexis HEPATITIS PANEL, ACUTEon HBsAg Screen Negative Normal Negative [facility] Comment on above: Performed By: #### R PRQ #### [facility] [address] [address] [address] Valerio Alexis HCV AB <0.1 Normal 0.0-0.9 [facility] Comment on above: Performed By: #### R PRQ #### [facility] [address] [address] [address] Valerio Alexis Hep A Ab, IgM Negative Normal Negative [facility] Comment on above: Performed By: #### R PRQ #### [facility] [address] [address] [address] Valerio Alexis Hep B Core Ab, IgM Negative Normal Negative [facility] Comment on above: Performed By: #### R PRQ #### [facility] [address] [address] [address] Valerio Alexis Interpretation: Comment Normal [facility] Comment on above: Result Comment: Nega tive Not infected with HCV, unless recent infection is suspected or other evidence exists to indicate HCV infection. Performed By: #### R PRQ #### [facility] [address] [address] [address] Valerio Alexis HIV 1 AND 2 WITH REFLEXon HIV Screen 4th Generation wRfx Non-Reactive Normal Non Reactive [facility] Comment on above: Result Comment: HIV Negative HIV-1/HIV-2 antibodies and HIV-1 p24 antigen were NOT detected. There is no laboratory evidence of HIV infection. Performed By: #### N BOX #### [facility] [address] [place] [address] Dr. Valerio Alexis RPR QUANTon 05-20-2022 Rapid Plasma Reagin, Quant Non-Reactive Normal NonRea<1:1 [facility] Comment on above: Result Comment: Michelle levy Note: This test does not meet current guidelines for screening and diagnosis of syphilis. This test is intended for following treatment response in patients being treated for syphilis infection. To screen for syphilis infection, a reflex cascade that includes both RPR and a treponema-specific assay should be utilized, such as Treponema pallidum (Syphilis) Screening [place] (799404) or Rapid Plasma Reagin (RPR) Test With Reflex to Quantitative RPR and Confirmatory Treponema pallidum Antibodies (862914). Performed By: #### R PRQ #### [facility] [address] [place] [address] Dr. Valerio Alexis CULTURE URINEon 05-19-2022 CULTURE URINE Culture Observations: HEAVY GROWTH OF MIXED GENITAL RICK. NO POTENTIAL PATHOGENS SEEN. Normal [facility] Comment on above: Performed By: #### U RCX #### [facility] [address] [place] [address] Dr. Valerio Alexis CULTURE URINEon 05-18-2022 CULTURE URINE Culture Observations: LIGHT GROWTH OF MIXED GENITAL RICK. NO POTENTIAL PATHOGENS SEEN. Normal [facility] Comment on above: Performed By: #### U RCX #### [facility] [address] [place] [address] Dr. Valerio Alexis AFP MATERNAL FOR SPINA BIFID Aon 04-30-2022 AFP MoM 1.13 Normal [facility] Comment on above: Performed By: #### R PRQ #### [facility] [address] [place] [address] Dr. Valerio Alexis AFP Value 94.7 ng/mL Normal [facility] Comment on above: Performed By: #### R PRQ #### [facility] [address] [place] [address] Dr. Valerio Alexis AFP, Serum for Spina Bifida Report Normal [facility] Comment on above: Performed By: #### R PRQ #### [facility] [address] [place] [address] Dr. Valerio Alexis Comment Comment Normal [facility] Comment on above: Result Comment: Willa Domínguez, Ph.D., [employer] Director . References: Available Upon Request. . Multiples Of Median Cutoffs For AFP Elevations Cu[place]a 2.5 Black 2.8 IDD 2.0 Twins 4.5 Abbreviation Definitions IDD - Insulin Dep Diabetes OSBR - Open Spina Bifida Risk . For further inquiries contact [employer] at [phone]. . This test was developed and its performance characteristics determined by [employer]. It has not been cleared or approved by the Food and Drug Administration. Performed By: #### R PRQ #### [facility] [address] [place] [address] Dr. Valerio Alexis Gest Age Collection Date 20.9 weeks Normal [facility] Comment on above: Performed By: #### R PRQ #### [facility] [address] [address] [address] Valerio Alexis Gestat, Age Based on JOSE Normal [facility] Comment on above: Result Comment: 08/04 Recalculations are not recommended when gestational dating by LMP and ultrasound are within 10 days. Performed By: #### R PRQ #### [facility] [address] [place] [address] Dr. Valeroi Alexis Insulin Dep Diabetes No Normal [facility] Comment on above: Performed By: #### R PRQ #### [facility] [address] [place] [address] Dr. Valerio Alexis Interpretation Comment Normal [facility] Comment on above: Result Comment: Inte rpretation: Screen Negative . This result is screen negative for OSB. The AFP MoM calculated is based on the gestational age provided. MS-AFP can identify up to 80% of open neural tube defects. Closed neural tube defects and some open defects may not be detected by this test. This test does not screen for Down Syndrome or Trisomy 18. If screening for Down Syndrome or Trisomy 18 is desired, contact [employer] to discuss available options. The [employer] recommends amniocentesis be offered to women age 35 and older. Performed By: #### R PRQ #### [facility] [address] [address] [address] Valeroi Alexis [age] Normal [facility] Comment on above: Performed By: #### R PRQ #### [facility] [address] [address] [address] Valerio Alexis Multiple Gestation No Normal [facility] Comment on above: Performed By: #### R PRQ #### [facility] [address] [address] [address] Valerio Alexis OSBR Risk 1 IN [address] [facility] Comment on above: Performed By: #### R PRQ #### [facility] [address] [address] [address] Valerio Alexis PDF . [facility] Comment on above: Performed By: #### R PRQ #### [facility] [address] [address] [address] Valerio Alexis Race [facility] Comment on above: Performed By: #### R PRQ #### [facility] [address] [place] [address] Dr. Valerio Alexis Test Results: Negative [facility] Comment on above: Performed By: #### R PRQ #### [facility] [address] [place] [address] Dr. Valerio Alexis US PREG ANATOMY SINGLEon US PREG ANATOMY SINGLE EXAMINATION: US PREG ANATOMY SINGLE HISTORY: anatomy study COMPARISON: Ultrasound transvaginal 02/16/2022 TECHNIQUE: Transabdominal sonographic examination was performed for obstetrical and evaluation. FINDINGS: Number: 1 Heart Rate: 141.0 bpm H.B. /min Amniotic Fluid Volume: Subjectively normal Placental Location: POSTERIOR with lower margin 3.8 cm from os. Cervix Length: 4.6 cm, closed. ANATOMY: Normal Structures -cerebellum, choroid plexus, cisterna magna, lateral cerebral ventricles, orbits, midline falx, hard palate, four-chamber heart, RVOT, LVOT, stomach, kidneys, bladder, umbilical cord insertion into abdomen, three-vessel cord, cervical spine, thoracic spine, lumbar spine, sacral spine, right upper extremity, left upper extremity, right lower extremity, left lower extremity. SUBOPTIMALLY SEEN: None ABNORMALITIES: None BIOMETRY: BPD: 4.1 cm 18 weeks 3 days ; <3% HC: 17.7 cm 20 weeks 1 days; 12% AC: 15.7 cm 20 weeks 6 days; 39% FL: 3.3 cm 20 weeks 2 days; 21% EFW:358.2 grams; 21% FL/AC: 21.1 FL/BPD: 80.3 HC/AC: 1.1 GESTATIONAL AGE: Age by EDC: 21 weeks 0 days JOSE by EDC: 08/31/2022 Age by current US: 20 weeks 0 days JOSE by current US: 09/07/2022 IMPRESSION: 1. Single live intrauterine with growth detailed above. 2. Biparietal diameter is less than 3rd percentile. Electronically authenticated by: TEAGAN ENRIQUE Date: 2022-04-20 20:07 Normal [facility] CHLAMYDIA/GONOCOCCUS CHULA (SW AB/URINE/PAPon 03-26-2022 Chlamydia trachomatis, CHULA Negative Normal Negative [facility] Comment on above: Performed By: #### R PRQ #### [facility] [address] [place] [address] Dr. Vaelrio Alexis Neisseria gonorrhoeae, CHULA Negative Normal Negative [facility] Comment on above: Performed By: #### R PRQ #### [facility] [address] [place] [address] Dr. Valerio Alexis VAGINITIS/VAGINOSIS DNA PROB Dane 03-25-2022 Beata species Positive Abnormal Negative [facility] Comment on above: Performed By: #### R PRQ #### [facility] [address] [place] [address] Dr. Valerio Alexis Gardnerella vaginalis Positive Abnormal Negative [facility] Comment on above: Performed By: #### R PRQ #### [facility] [address] [address] [address] Valerio Alexis Trichomonas vaginalis Negative Normal Negative [facility] Comment on above: Performed By: #### R PRQ #### [facility] [address] [place] [address] Dr. Valerio Alexis Covid-19 PCR (CVDTB)on 01-31 SARS-CoV-2 (COVID-19) RNA CHULA+probe Ql (Unsp spec) Detected Critically abnormal NOT DETECTED [facility] Comment on above: Result Comment: This test is not yet approved or cleared by the [place] FDA. When there are no FDA-approved or cleared tests available, and other criteria are met, FDA can make tests available under an emergency access mechanism called an Emergency Use Authorization (EUA). The EUA for this test is supported by the [place] [employer] and Human Service's declaration that circumstances exist to justify the emergency use of in vitro diagnostics for the detection and/or diagnosis of the virus that causes COVID-19. This EUA will remain in effect for the duration of the COVID-19 declaration justifying emergency of IVDs, unless it is terminated or revoked by the FDA (after which the test may no longer be used). Performed By: #### C VDTBH #### [facility] [address] [address] [address] Valerio Alexis US PREG TVon 02-16-2022 US PREG TV EXAMINATION: US PREG TV HISTORY: Hemorrhagic complication of COMPARISON: No relevant comparison available. FINDINGS: GESTATIONAL SAC: Present and normal appearing. POLE: Present and normal appearing. YOLK SAC: Present. CARDIAC: Present. UTERUS: Small subchorionic hematoma, 2.8 x 0.8 x 0.8 cm. OVARIES: Right: Normal. Left: Normal. CERVIX: 5.1 cm in length and closed. CUL-DE-SAC: Normal. OTHER: None. AGE BY LMP: 12 weeks, 0 days JOSE BY LMP: 08/31/2022 AGE BY US CRL: 12 weeks, 2 days JOSE BY US CRL: 08/29/2022 IMPRESSION: 1. Single live intrauterine . Electronically authenticated by: TEAGAN ENRIQUE Date: 2022-02-16 13:14 Normal [facility] CHEMISTRYOrdered By: Roberto Garsia on 02-15-2022 HCG.beta subunit Qn [id number] m[IU]/mL High 1 - 3 mIU/m [place] [facility] [place] S HEP B SURFACE ANTIGEN SCREEN on 02-12-2022 HBsAg Screen Negative Normal Negative [facility] Comment on above: Performed By: #### H H #### [facility] [address] [address] [address] Valerio Alexis HEPATITIS C VIRUS AB W/ REFL EX QUANTon 02-12-2022 HCV AB 0.1 s/co ratio Normal 0.0-0.9 [facility] Comment on above: Performed By: #### H H #### [facility] [address] [address] [address] Valerio Alexis Interpretation: Comment Normal [facility] Comment on above: Result Comment: Nega tive Not infected with HCV, unless recent infection is suspected or other evidence exists to indicate HCV infection. Performed By: #### H H #### [facility] [address] [address] [address] Valerio Alexis HIV 1 AND 2 WITH REFLEXon HIV Screen 4th Generation wRfx Non-Reactive Normal Non Reactive [facility] Comment on above: Result Comment: HIV Negative HIV-1/HIV-2 antibodies and HIV-1 p24 antigen were NOT detected. There is no laboratory evidence of HIV infection. Performed By: #### H IV12 #### [facility] [address] [address] [address] Valerio Alexis RPR QUANTon 02-12-2022 Rapid Plasma Reagin, Quant Non-Reactive Normal NonRea<1:1 [facility] Comment on above: Result Comment: Plea se Note: This test does not meet current guidelines for screening and diagnosis of syphilis. This test is intended for following treatment response in patients being treated for syphilis infection. To screen for syphilis infection, a reflex cascade that includes both RPR and a treponema-specific assay should be utilized, such as Treponema pallidum (Syphilis) Screening [place] (367831) or Rapid Plasma Reagin (RPR) Test With Reflex to Quantitative RPR and Confirmatory Treponema pallidum Antibodies (912158). Performed By: #### U RCX #### [facility] [address] [place] [address] Dr. Valerio Alexis RUBELLA AB IGGon 02-12-2022 Rubella Antibodies, IgG 1.88 index Normal Immune >0.99 [facility] Comment on above: Result Comment: Non- immune <0.90 Equivocal 0.90 - 0.99 Immune >0.99 Performed By: #### H H #### [facility] [address] [place] [address] Dr. Valerio Alexis CBC AUTO DIFFon 02-11-2022 BASO # 0.0 103/ul Normal 0.0-0.1 [facility] Comment on above: Performed By: #### H H #### [facility] [address] [place] [address] Dr. Valerio Alexis Basophils/100 WBC (Bld) 0.3 % Normal 0.2-2.0 [facility] Comment on above: Performed By: #### H H #### [facility] [address] [place] [address] Dr. Valerio Alexis EO # 0.1 103/ul Normal 0.0-0.7 [facility] Comment on above: Performed By: #### H H #### [facility] [address] [place] [address] Dr. Valerio Alexis Eosinophils/100 WBC (Bld) 0.9 % Normal 0.9-7.0 [facility] Comment on above: Performed By: #### H H #### [facility] [address] [place] [address] Dr. Valerio Alexis Erythrocyte distribution width (RBC) [Ratio] 12.8 % Normal 11.0-15.0 [facility] Comment on above: Performed By: #### H H #### [facility] [address] [place] [address] Dr. Valerio Alexis Hematocrit (Bld) [Volume fraction] 37.6 % Normal 36.0-48.0 [facility] Comment on above: Performed By: #### H H #### [facility] [address] [place] [address] Dr. Valerio Alexis Hemoglobin (Bld) [Mass/Vol] 12.5 g/dL Normal 12.0-16.0 [facility] Comment on above: Performed By: #### H H #### [facility] [address] [place] [address] Dr. Valerio Alexis IG # 0.04 10e3/ul Critically high 0.00-0.03 [facility] Comment on above: Performed By: #### H H #### [facility] [address] [address] [address] Valerio Alexis IG % 0.6 % Critically high 0.0-0.5 [facility] Comment on above: Performed By: #### H H #### [facility] [address] [place] [address] Dr. Valerio Alexis LYMPH # 1.5 103/ul Normal 1.2-3.8 [facility] Comment on above: Performed By: #### H H #### [facility] [address] [place] [address] Dr. Valerio Alexis Lymphocytes/100 WBC (Bld) 21.9 % Normal 20.5-60.0 [facility] Comment on above: Performed By: #### H H #### [facility] [address] [place] [address] Dr. Valerio Alexis MANUAL DIFF REQ NO Normal [facility] Comment on above: Performed By: #### H H #### [facility] [address] [place] [address] Dr. Valerio Alexis MCH (RBC) [Entitic mass] 29.0 pg Normal 26.7-34.0 [facility] Comment on above: Performed By: #### H H #### [facility] [address] [place] [address] Dr. Valerio Alexis MCHC (RBC) [Mass/Vol] 33.2 g/dL Normal 29.9-35.2 [facility] Comment on above: Performed By: #### H H #### [facility] [address] [place] [address] Dr. Valerio Alexis MCV (RBC) [Entitic vol] 87.2 fL Normal 81.0-99.0 [facility] Comment on above: Performed By: #### H H #### [facility] [address] [place] [address] Dr. Valerio Alexis MONO # 0.5 103/ul Normal 0.3-0.8 [facility] Comment on above: Performed By: #### H H #### [facility] [address] [place] [address] Dr. Valerio Alexis Monocytes/100 WBC (Bld) 6.7 % Normal 1.7-12.0 [facility] Comment on above: Performed By: #### H H #### [facility] [address] [place] [address] Dr. Valerio Alexis NEUT # 4.9 103/ul Normal 1.4-6.5 [facility] Comment on above: Performed By: #### H H #### [facility] [address] [place] [address] Dr. Valerio Alexis Neutrophils/100 WBC (Bld) 69.6 % Normal 43.0-75.0 [facility] Comment on above: Performed By: #### H H #### [facility] [address] [place] [address] Dr. Valerio Alexis Platelet mean volume (Bld) [Entitic vol] 10.8 fL Normal 9.5-13.5 [facility] Comment on above: Performed By: #### H H #### [facility] [address] [place] [address] Dr. Valerio Alexis PLT 183 103/ul Normal 150-450 [facility] Comment on above: Performed By: #### H H #### [facility] [address] [place] [address] Dr. Valerio Alexis RBC 4.31 106/ul Normal 4.20-5.40 [facility] Comment on above: Performed By: #### H H #### [facility] [address] [place] [address] Dr. Valerio Alexis WBC 7.0 103/ul Normal 4.0-11.0 [facility] Comment on above: Performed By: #### H H #### [facility] [address] [address] [address] Valerio Alexis CULTURE URINEon 02-11-2022 CULTURE URINE Culture Observations: NO GROWTH. Normal [facility] Comment on above: Performed By: #### U RCX #### [facility] [address] [address] [address] Valerio Alexis GLYCOHEMOGLOBIN A1Con 2021 ADA RECOMMENDATION SEE BELOW Normal [facility] Comment on above: Result Comment: ADA RECOMMENDED LIMIT 4.0 - 6.0 ADA THERAPEUTIC TARGET < 7.0 ACTION SUGGESTED > 7.0 Performed By: #### H H #### [facility] [address] [place] [address] Dr. Valerio Alexis Glucose [Mass/Vol] 88 mg/dL Normal [facility] Comment on above: Performed By: #### H H #### [facility] [address] [place] [address] Dr. Valerio Alexis HbA1c (Bld) [Mass fraction] 4.7 % Normal 4.5-6.2 [facility] Comment on above: Performed By: #### H H #### [facility] [address] [place] [address] Dr. Valerio Alexis ASTER BOX TEST PT SEND OUTo n 02-11-2022 SENT TO REF LAB 02/11/2022 Normal [facility] Comment on above: Performed By: #### N BOX #### [facility] [address] [place] [address] Dr. Valerio Alexis TYPE AND SCREENon 02-11-2022 TYPE AND SCREEN Negative Normal [facility] Comment on above: Performed By: #### N BOX #### [facility] [address] [place] [address] Dr. Valerio Alexis US PREG TVon 01-26-2022 US PREG TV EXAMINATION: US PREG TV HISTORY: Missed period COMPARISON: No relevant comparison available. FINDINGS: GESTATIONAL SAC: Present and normal appearing. POLE: Present and normal appearing. YOLK SAC: Present. CARDIAC: Present. UTERUS: Normal size and appearance. OVARIES: Right: Normal. Left: Normal. CERVIX: 4.1 cm in length and closed. CUL-DE-SAC: Normal. OTHER: None. AGE BY LMP: 9 weeks, 0 days JOSE BY LMP: 08/31/2022 AGE BY US CRL: 8 weeks, 6 days JOSE BY US CRL: 09/01/2022 IMPRESSION: 1. Single live intrauterine . Electronically authenticated by: TEAGAN ENRIQUE Date: 2022-01-26 09:46 Normal [facility] PROGRESSon 11-20-2019 PROGRESS HNO ID: [id number] Author: Cheryl Cao (Od) Jose Enrique Service: ? Author Type: METER CHANGES RECORDS CLERK Type: Progress Notes Filed: 11/20/2019 4:36 PM Note Text: ASSESSMENT/PLAN: 1. Allergic conjunctivitis of both eyes - ICD9: 372.14, ICD10: H10.13 (primary diagnosis) Current Ophthalmic Meds olopatadine (PATANOL) 0.1 % ophthalmic solution Use 1 Drop in both eyes twice daily for 30 days. Discussed the option of Zaditor or the Alaway if the prescription is not covered. 2. Cat scratch - ICD9: 919.0, E906.8, ICD10: W55.03XA Suggested the use of Azithromycin Z Pack to avoid secondary infection. Patient did not know if the tissue was broken when the initial scratch occurred last week. Return as needed or if symptoms increase. Cheryl Quispe, OD I have confirmed and edited as necessary the relevant ophthalmic history, ROS, and the neuro exam findings as obtained by others. I have seen and examined this patient. I have discussed the case and the management of this patient's care with the Resident/Fellow, if applicable. I also have reviewed and agree with the assessment and plan as stated above and agree with all of its relevant components. Normal [facility] TSHon 06-11-2018 Thyrotropin Qn 3.104 uIU/mL Normal 0.350-5.500 [facility] Comment on above: Performed By: #### T ####[facility] [address] [phone] Comp Metabolic Panelon 06-09 Albumin mass conc 4.6 g/dL High 3.2-4.5 [facility] Comment on above: Performed By: #### C MP ####[address] [phone] ALP enzyme act/vol 75 U/L Normal 47-119 [facility] Comment on above: Performed By: #### C MP ####[address] [phone] ALT enzyme act/vol 11 U/L Normal 0-31 [facility] Comment on above: Performed By: #### C MP ####[address] [phone] AST enzyme act/vol 14 U/L Normal 0-31 [facility] Comment on above: Performed By: #### C MP ####[address] [phone] Bili,Total 0.8 mg/dl Normal 0.0-1.0 [facility] Comment on above: Result Comment: Gama ature : 1 Day 1.0-6.0 mg/dl 2 Day 6.0-8.0 mg/dl 3-5 Day 10.0-15.0 mg/dl Performed By: #### C MP ####[address] [phone] Calcium mass conc 9.8 mg/dL Normal 7.6-11.0 [facility] Comment on above: Performed By: #### C MP ####[address] [phone] Chloride molar conc 105 mmol/L Normal 96-108 [facility] Comment on above: Performed By: #### C MP ####[address] [phone] CO2 molar conc 26.2 mmol/L Normal 22.0-29.0 [facility] Comment on above: Performed By: #### C MP ####[address] [phone] Creatinine mass conc 0.82 mg/dL Normal 0.50-1.00 [facility] Comment on above: Result Comment: Gama ature 0.3-1.0 mg/dL Performed By: #### C MP ####[address] [phone] Glucose mass conc 89 mg/dL Normal 70-99 [facility] Comment on above: Result Comment: Crit hola for Diagnosis of Diabetes(Effective 03/07/11):Fasting specimen (no caloric intake for at least 8 hours). <100 mg/dl Normal 100-125 mg/dl Increased Risk for Diabetes >125 mg/dl Diagnostic for DiabetesRandom Glucose (any time of day without regard to last meal). >=200 mg/dl plus Classic Symptoms of Diabetes Performed By: #### C MP ####[address] [phone] Potassium molar conc 3.8 mmol/L Normal 3.3-5.1 [facility] Comment on above: Performed By: #### C MP ####[address] [phone] Protein mass conc 8.1 g/dL Normal 5.9-8.4 [facility] Comment on above: Performed By: #### C MP ####[address] [phone] Sodium molar conc 138 mmol/L Normal 133-145 [facility] Comment on above: Performed By: #### C MP ####[address] [phone] Urea nitrogen mass conc 10 mg/dL Normal 4-19 [facility] Comment on above: Performed By: #### C MP ####[address] [phone] Complete Blood Counton 06-09 Differential Complete Manual Normal [facility] Comment on above: Performed By: #### C BC ####[address] [phone] Erythrocyte distribution width Auto Ratio (RBC) 12.7 % Normal 0.0-14.4 [facility] Comment on above: Performed By: #### C BC ####[address] [phone] Hematocrit Auto Volume Fraction (Bld) 45.1 % Normal 37.0-46.0 [facility] Comment on above: Performed By: #### C BC ####[address] [phone] Hemoglobin mass conc (Bld) 15.2 g/dL High 12.0-15.0 [facility] Comment on above: Performed By: #### C BC ####[address] [phone] Immature granulocytes/100 WBC (Bld) 0.30 % Normal [facility] Comment on above: Result Comment: Sherice ture Granulocyte Percent includes promyelocytes, myelocytes,and metamyelocytes. IG% > 1.0 indicates a left shift ispresent. With automated differentials, bands are includedin the neutrophil count and not in the Immature GranulocytePercent. Performed By: #### C BC ####[address] [phone] MCH Auto Entitic mass (RBC) 29.2 pg Normal 25.0-35.0 [facility] Comment on above: Performed By: #### C BC ####[address] [phone] MCHC Auto mass conc (RBC) 33.7 % Normal 31.0-37.0 [facility] Comment on above: Performed By: #### C BC ####[address] [phone] MCV Auto Entitic volume (RBC) 86.6 fL Normal 78.0-96.0 [facility] Comment on above: Performed By: #### C BC ####[address] [phone] Nucleated RBC/100 WBC Ratio (Bld) 0.0 % Normal -1.0-0.0 [facility] Comment on above: Performed By: #### C BC ####[address] [phone] Platelet mean volume Auto Entitic volume (Bld) 10.5 fL Normal [facility] Comment on above: Result Comment: MPV is plateletrange and agedependent Performed By: #### C BC ####[address] [phone] Platelets Auto #/vol (Bld) 200 10*3/uL Normal 150-450 [facility] Comment on above: Performed By: #### C BC ####[address] [phone] RBC Auto #/vol (Bld) 5.21 10E12/L High 4.10-4.80 [facility] Comment on above: Performed By: #### C BC ####[address] [phone] WBC Auto #/vol (Bld) 9.0 10*3/uL Normal 4.5-13.0 [facility] Comment on above: Performed By: #### C BC ####[address] [phone] Manual Differentialon 2017 Absolute Neutrophil No. 6.6 Normal [facility] Comment on above: Performed By: #### M DIFF ####[facility] of [address] [phone] Atypical Lymphocytes 7 % Normal 0-8 [facility] Comment on above: Performed By: #### M DIFF ####[facility] of [address] [phone] Band Neutrophils 0 % Low 5-11 [facility] Comment on above: Performed By: #### M DIFF ####[facility] of [address] [phone] Cell Morphology Normal Normal [facility] Comment on above: Performed By: #### M DIFF ####[facility] of [address] [phone] Lymphocytes 18 % Low 25-45 [facility] Comment on above: Performed By: #### M DIFF ####[facility] of [address] [phone] Metamyelocytes 0 % Normal 0-0 [facility] Comment on above: Performed By: #### M DIFF ####[facility] of [address] [phone] Monocytes 2 % Low 3-6 [facility] [facility] Comment on above: Performed By: #### M DIFF ####[facility] of [address] [phone] Myelocytes 0 % Normal 0-0 [facility] Comment on above: Performed By: #### M DIFF ####[facility] of [address] [phone] Promyelocytes 0 % Normal 0-0 [facility] Comment on above: Performed By: #### M DIFF ####[facility] of [address] [phone] Segmented Neutrophils 73 % High 34-64 [facility] Comment on above: Performed By: #### M DIFF ####[facility] of [place] [phone] eGFRon 06-09-2018 GFR/1.73 sq M.predicted MDRD vol rate/area 79.58 Normal [facility] Comment on above: Result Comment: Refe rence range:> 3 months:>90 ml/min/1.73m^2Ref. Range change [id number]/26/2018 Performed By: #### E GFR ####[facility] of [place] [phone] Vital Signs Date Time Vital Sign Value Performing Clinician Facility 07-20-2023 12:50-0400 Body height 157.48 cm Augusto Brewer Other [facility] Other 07-20-2023 12:50-0400 Body mass index (BMI) [Ratio] 18.47 kg/m2 Augusto Andersonaker Other [facility] Other 07-20-2023 12:50-0400 Body temperature 98.2 [degF] Augusto Brewer Other [facility] Other 07-20-2023 12:50-0400 Body weight 45.81 kg Augusto Andersonaker Other [facility] Other 07-20-2023 12:50-0400 Diastolic blood pressure 63 mm[Hg] Augusto Andersonaker Other [facility] Other 07-20-2023 12:50-0400 Respiratory rate 17 /min Augusto Andersonaker Other [facility] Other 07-20-2023 12:50-0400 SaO2% (BldA) [Mass fraction] 98 % Augusto Brewer Other [facility] Other 07-20-2023 12:50-0400 Systolic blood pressure 113 mm[Hg] Augusto Brewer Other [facility] Other 07-17-2023 09:40-0400 Body height 157.48 cm Mel Tomlinson Other [facility] Other 07-17-2023 09:40-0400 Body mass index (BMI) [Ratio] 18.65 kg/m2 Mel Bushra Other [facility] Other 07-17-2023 09:40-0400 Body temperature 98.7 [degF] Mel Bushra Other [facility] Other 07-17-2023 09:40-0400 Body weight 46.27 kg Mel Crenshawmond Other [facility] Other 07-17-2023 09:40-0400 Diastolic blood pressure 70 mm[Hg] Mel Bushra Other [facility] Other 07-17-2023 09:40-0400 Respiratory rate 18 /min Mel Bushra Other [facility] Other 07-17-2023 09:40-0400 SaO2% (BldA) [Mass fraction] 98 % Mel Bushra Other [facility] Other 07-17-2023 09:40-0400 Systolic blood pressure 107 mm[Hg] Mel Bushra Other [facility] Other 09-27-2022 22:50-0500 Body temperature 98.24 [degF] [facility]ino [employer] [facility] 09-27-2022 22:50-0500 Diastolic blood pressure 81 mm[Hg] Gabino [employer] [facility] 09-27-2022 22:50-0500 Heart rate 99 /min Gabino [employer] [facility] 09-27-2022 22:50-0500 Respiratory rate 18 /min Gabino [employer] [facility] 09-27-2022 22:50-0500 SaO2% (BldA) [Mass fraction] 99 % Gabino [employer] [facility] 09-27-2022 22:50-0500 Systolic blood pressure 121 mm[Hg] [facility] [employer] [facility] 04-30-2022 02:06-0400 Body weight 49.[address] WILL HARDING . [facility] Comment on above: Performed By: #### RPRQ #### [facility] [address] [place] [address] Dr. Valerio Alexis Encounters Encounter Date Encounter Type Care Provider Facility Start: 06-05-2024 End: 06-05-2024 ambulatory WILL CHERIE Not Available Start: 05-09-2024 End: 05-09-2024 ambulatory WILL CHERIE Not Available Start: 03-11-2024 End: 03-11-2024 Emergency department patient visit NO PCP NO PCP [facility] Start: 11-26-2023 End: 11-27-2023 Emergency department patient visit [facility] Start: 07-26-2023 End: 07-26-2023 ambulatory Mel Tomlinson Other [facility] Other Start: 07-26-2023 Telephone encounter Mel Tomlinson [facility] [place] Start: 07-20-2023 End: 07-20-2023 ambulatory Augusto Brewer Other [facility] [employer] Other Start: 07-20-2023 Office outpatient visit 15 minutes Augusto Brewer [facility] Start: 07-17-2023 Office outpatient ne w 20 minutes Mel Bushra [facility] Start: 07-17-2023 End: 07-17-2023 ambulatory Mel Bushra Facility:[facility] Start: 07-17-2023 End: 07-17-2023 ambulatory PROGRAM PROPOSALS COORDINATOR-C Mel Bushra Work Phone: [facility] Work Phone: Start: 07-17-2023 End: 07-17-2023 Departed Referred PROGRAM PROPOSALS COORDINATOR-C Mel Crenshawmond Work Phone: [facility] [place] Work Phone: Start: 12-27-2022 End: 12-27-2022 ambulatory DOCTOR MISC Facility:[facility] Start: 11-19-2022 End: 11-19-2022 ambulatory DOCTOR MISC Facility:[facility] Start: 10-24-2022 End: 10-24-[address] CORNEJO MISC Facility:[facility] Start: 09-27-2022 End: 09-27-2022 Emergency department patient visit Gabino EddyVita Urias [facility] Start: 08-30-2022 End: 08-30-2022 ambulatory DOCTOR MISC Facility:[facility] Start: 08-24-2022 End: 08-26-2022 Evaluation and management of inpatient DR CORNEJO MISC Facility:[facility] Start: 08-22-2022 End: 08-22-[address] COLEMAN MACIEL . Facility:[facility] Start: 08-18-2022 End: 08-18-2022 ambulatory DOCTOR MISC Facility:[facility] Start: 08-16-2022 End: 08-16-[address] COLEMAN MACIEL . Facility:[facility] Start: 08-15-2022 End: 08-15-2022 ambulatory DOCTOR MISC Facility:[facility] Start: 08-11-2022 End: 08-11-[address] DOCTOR MISC Facility:[facility] Start: 08-08-2022 End: 08-08-[address] DOCTOR MISC Facility:[facility] Start: 08-05-2022 End: 08-05-[address] DOCTOR MISC Facility:[facility] Start: 08-04-2022 End: 08-04-[address] DOCTOR MISC Facility:[facility] Start: 08-04-2022 End: 08-04-[address] WILL HARDING . Facility:[facility] Start: 08-01-2022 End: 08-01-[address] DOCTOR MISC Facility:[facility] Start: 07-28-2022 End: 07-29-[address] DOCTOR MISC Facility:[facility] Start: 07-28-2022 End: 07-28-[address] DOCTOR MISC Facility:[facility] Start: 07-26-2022 End: 07-26-[address] DOCTOR MISC Facility:[facility] Start: 07-25-2022 End: 07-25-[address] DOCTOR MISC Facility:[facility] Start: 07-22-2022 End: 07-22-[address] DOCTOR MISC Facility:[facility] Start: 07-19-2022 End: 07-19-[address] DOCTOR MISC Facility:[facility] Start: 07-12-2022 End: 07-13-[address] DOCTOR MISC Facility:[facility] Start: 05-31-2022 End: 06-01-[address] DOCTOR MISC Facility:[facility] Start: 05-19-2022 End: 05-20-[address] DOCTOR MISC Facility:[facility] Start: 05-18-2022 End: 05-18-[address] WILL HARDING . Facility:[facility] Start: 05-09-[address] WILL HARDING . Facili ty:[facility]1 Start: 04-20-2022 End: 04-21-[address] WILL HARDING . Facility:[facility] Start: 04-19-2022 End: 04-20-[address] WILL HARDING . Facility:[facility] Start: 03-24-2022 End: 03-24-[address] WILL HARDING . Facility:[facility] Start: 02-25-2022 End: 02-25-[address] WILL HARDING . Facility:[facility] Start: 02-16-2022 End: 02-17-[address] WILL HARDING . Facility:[facility] Start: 02-15-2022 End: 02-15-2022 Patient encounter procedure Gabrielle Esqueda [facility] Start: 02-11-2022 End: 02-12-[address] WILL HARDING . Facility:[facility] Start: 01-26-2022 End: 01-27-[address] WILL HARDING . Facility:[facility] Start: 06-08-2018 End: 06-11-2018 [facility] Start: 06-06-2018 End: 06-08-2018 Evaluation and management of inpatient CONOR Camara [facility] Start: 02-22-2018 End: 02-22-2018 Patient encounter MAIRA BOUDREAUX [facility] Procedures Date Procedure Procedure Detail Performing Clinician Start: 08-24-2022 Delivery of Products of Conception, External Approach DR WILL HARDING . Start: 08-24-2022 Drainage of Amniotic Fluid, Therapeutic from Products of Conception, Via Natural or Artificial Opening DR WILL HARDING . Start: 08-24-2022 Introduction of Othe r Hormone into Peripheral Vein, Percutaneous Approach DR WILL HARDING . Start: 08-24-2022 Repair Vulva, Agricultural Commodities Grader al Approach DR WILL HARDING . None (qualifier value) Ranjan Esqueda Plan of Treatment Date Care Activity Detail Author Start: 07-17-2023 [facility] Atopobium vaginae DN A [Presence] in Vaginal fluid by CHULA with probe detection [facility] Bacterial vaginosis associated bacterium 2 DNA [Presence] in Vaginal fluid by CHULA with probe detection [facility] Megasphaera sp type 1 DNA [Presence] in Vaginal fluid by CHULA with probe detection [facility] Immunizations Immunization Date Immunization Notes Care Provider Fa cility 11-25-2017 influenza, seasonal, injectable Gabrielle Esqueda [facility] Comment on above: Reason for Medicatio n: Other (see comment) NEGATED: Highlighted row has not occurred!11-20-2019 influenza virus vaccine, live, attenuated, for intranasal use Gabrielle Esqueda [facility] Payers Date Payer Category Payer Unknown [id number] 2.16.84 0.1.421022.3.579.2.593 2002 Unknown [id number] 2.16.84 0.1.990308.3.579.2.593 2002 Unknown [id number] 2.16.84 0.1.640371.3.579.2.593 2002 Unknown [id number] 2.16.84 0.1.635570.3.579.2.593 2002 Unknown [id number] 2.16.84 0.1.951907.3.579.2.593 2002 Unknown [id number] 2.16.84 0.1.731407.3.579.2.593 2002 Unknown [id number] 2.16.84 0.1.930651.3.579.2.593 2002 Unknown [id number] 2.16.84 0.1.888267.3.579.2.593 2002 Unknown [id number] 2.16.84 0.1.514172.3.579.2.593 2002 Unknown [id number] 2.16.84 0.1.799104.3.579.2.593 2002 Unknown [id number] 2.16.84 0.1.278420.3.579.2.593 2002 Unknown [id number] 2.16.84 0.1.438489.3.579.2.593 2002 Unknown [id number] 2.16.84 0.1.403901.3.579.2.593 2002 Unknown [id number] 2.16.84 0.1.874335.3.579.2.593 2002 Unknown [id number] 2.16.84 0.1.293568.3.579.2.593 2002 Unknown [id number] 2.16.84 0.1.420072.3.579.2.593 2002 Unknown [id number] 2.16.84 0.1.729920.3.579.2.593 2002 Unknown [id number] 2.16.84 0.1.733569.3.579.2.593 2002 Unknown [id number] 2.16.84 0.1.949245.3.579.2.593 2002 Unknown [id number] 2.16.84 0.1.097757.3.579.2.593 2002 Unknown [id number] 2.16.84 0.1.882407.3.579.2.593 2002 Unknown [id number] 2.16.84 0.1.385818.3.579.2.593 2002 Unknown [id number] 2.16.84 0.1.389752.3.579.2.593 2002 Unknown [id number] 2.16.84 0.1.816380.3.579.2.593 2002 Unknown [id number] 2.16.84 0.1.671705.3.579.2.593 2002 Unknown [id number] 2.16.84 0.1.590726.3.579.2.593 2002 Unknown [id number] 2.16.84 0.1.034573.3.579.2.593 2002 Unknown [id number] 2.16.84 0.1.649579.3.579.2.593 2002 Unknown [id number] 2.16.84 0.1.109219.3.579.2.593 2002 Unknown [id number] 2.16.84 0.1.228627.3.579.2.593 2002 Unknown [id number] 2.16.84 0.1.508017.3.579.2.593 2002 Unknown [id number] 2.16.84 0.1.222309.3.579.2.593 2002 Unknown [id number] 2.16.84 0.1.779260.3.579.2.593 2002 Unknown [id number] 2.16.8 40.1.634965.3.579.2.1286 2002 Unknown [id number] 2.16.84 0.1.755234.3.579.2.1259 2002 Unknown [id number] 2.16.84 0.1.344772.3.579.2.1259 1959 Self-pay 1959 Unknown [id number] 1959 Unknown [id number] Unknown [id number] 2.16.84 0.1.087817.3.579.2.593 Unknown [id number] 2.16.8 40.1.738195.3.579.2.531 Social History Date Type Detail Facility Start: 05-19-2021 Tobacco smoking status Never s moked tobacco (finding) [facility] Comment on above: denies denies denies Tobacco smoking status Never [facility] Comment on above: denies denies denies Sex Assigned At Female [facility] Start: 2002 Sex Assigned At Female [facility] Functional Status Date Assessment Result Facility 09-27-2022 Functional Status Yes [facility] Evaluation note 07-20-2023 Note Date & Type Note Facility 07-20-2023 Evaluation note Encounter Date Diagnosis Assessment Notes Jul, Sebaceous cyst (ICD-10 - L72.3) Nodule/cyst is immature and we will hold off on I&D. I advised her that she may need to return if cystic structure worsens for possible I&D. Apply warm compresses to affected area for 15 minutes 4 times a day. If symptoms worsen return or go to the ER. Take medicine as prescribed. Stop taking amoxicillin. Jul, Local infection of the skin and subcutaneous tissue, unspecified (ICD-10 - L08.9) [facility] Other Evaluation note 07-17-2023 Note Date & Type Note Facility 07-17-2023 Evaluation note Encounter Date Diagnosis Assessment Notes Jul, Dysuria (ICD-10 - R30.0) Jul, Right otitis media, unspecified otitis media type (ICD-10 - H66.91) Middle ear infection: adult home care material was printed Jul, Acute otitis externa of right ear, unspecified type (ICD-10 - H60.501) Jul, Vaginal discharge (ICD-10 - N89.8) Vaginal discharge home care material was printed Jul, History of candidiasis of vagina (ICD-10 - Z86.19) [facility] Other Hospital Discharge instructions 09-28-2022 Note Date & Type Note Facility 09-28-2022 Hospital Discharg e instructions Patient Education 09/27/2022 23:49:20 Upper Respiratory Infection, Adult, Tfwl-ek-Ftna Upper Respiratory Infection, Adult An upper respiratory infection (URI) affects the nose, throat, and upper air passages. URIs are caused by germs (viruses). The most common type of URI is often called the common cold. Medicines cannot cure URIs, but you can do things at home to relieve your symptoms. URIs usually get better within 7 10 days. Follow these instructions at home: Activity Rest as needed. If you have a fever, stay home from work or school until your fever is gone, or until your doctor says you may return to work or school. ?You should stay home until you cannot spread the infection anymore (you are not contagious). ?Your doctor may have you wear a face mask so you have less risk of spreading the infection. Relieving symptoms Gargle with a salt-water mixture 3 4 times a day or as needed. To make a salt-water mixture, completely dissolve 1 tsp of salt in 1 cup of warm water. Use a cool-mist humidifier to add moisture to the air. This can help you breathe more easily. Eating and drinking Drink enough fluid to keep your pee (urine) pale yellow. Eat soups and other clear broths. General instructions Take iacm-hcw-ndpuvif and prescription medicines only as told by your doctor. These include cold medicines, fever reducers, and cough suppressants. Do not use any products that contain nicotine or tobacco. These include cigarettes and e-cigarettes. If you need help quitting, ask your doctor. Avoid being where people are smoking (avoid secondhand smoke). Make sure you get regular shots and get the flu shot every year. Keep all follow-up visits as told by your doctor. This is important. How to avoid spreading infection to others Wash your hands often with soap and water. If you do not have soap and water, use hand metal window screen assembler. Avoid touching your mouth, face, eyes, or nose. Cough or sneeze into a tissue or your sleeve or elbow. Do not cough or sneeze into your hand or into the air. Contact a doctor if: You are getting worse, not better. You have any of these: ?A fever. ?Chills. ?Brown or red mucus in your nose. ?Yellow or brown fluid (discharge)coming from your nose. ?Pain in your face, especially when you bend forward. ?Swollen neck glands. ?Pain with swallowing. ?White areas in the back of your throat. Get help right away if: You have shortness of breath that gets worse. You have very bad or constant: ?Headache. ?Ear pain. ?Pain in your forehead, behind your eyes, and over your cheekbones (sinus pain). ?Chest pain. You have long-lasting (chronic) lung disease along with any of these: ?Wheezing. ?Long-lasting cough. ?Coughing up blood. ?A change in your usual mucus. You have a stiff neck. You have changes in your: ?Vision. ?Hearing. ?Thinking. ?Mood. Summary An upper respiratory infection (URI) is caused by a germ called a virus. The most common type of URI is often called the common cold. URIs usually get better within 7 10 days. Take lkaq-xip-hiinash and prescription medicines only as told by your doctor. This information is not intended to replace advice given to you by your health care provider. Make sure you discuss any questions you have with your health care provider. Document Released: 03/06/2009 Document Revised: 09/26/2019 Document Reviewed: 05/11/2018 [employer] Patient Education 2020 [employer]. 09/27/2022 23:49:20 Cough, Adult, Efrm-qr-Dseh Cough, Adult A cough helps to clear your throat and lungs. A cough may be a sign of an illness or another medical condition. An acute cough may only last 2 3 weeks, while a chronic cough may last 8 or more weeks. Many things can cause a cough. They include: Germs (viruses or bacteria) that attack the airway. Breathing in things that bother (irritate) your lungs. Allergies. Asthma. Mucus that runs down the back of your throat (postnasal drip). Smoking. Acid backing up from the stomach into the tube that moves food from the mouth to the stomach (gastroesophageal reflux). Some medicines. Lung problems. Other medical conditions, such as heart failure or a blood clot in the lung (pulmonary embolism). Follow these instructions at home: Medicines Take uwtj-rmq-kfxlemz and prescription medicines only as told by your doctor. Talk with your doctor before you take medicines that stop a cough (coughsuppressants). Lifestyle Do not smoke, and try not to be around smoke. Do not use any products that contain nicotine or tobacco, such as cigarettes, e-cigarettes, and chewing tobacco. If you need help quitting, ask your doctor. Drink enough fluid to keep your pee (urine) pale yellow. Avoid caffeine. Do not drink alcohol if your doctor tells you not to drink. General instructions Watch for any changes in your cough. Tell your doctor about them. Always cover your mouth when you cough. Stay away from things that make you cough, such as perfume, candles, campfire smoke, or cleaning products. If the air is dry, use a cool mist vaporizer or humidifier in your home. If your cough is worse at night, try using extra pillows to raise your head up higher while you sleep. Rest as needed. Keep all follow-up visits as told by your doctor. This is important. Contact a doctor if: You have new symptoms. You cough up pus. Your cough does not get better after 2 3 weeks, or your cough gets worse. Cough medicine does not help your cough and you are not sleeping well. You have pain that gets worse or pain that is not helped with medicine. You have a fever. You are losing weight and you do not know why. You have night sweats. Get help right away if: You cough up blood. You have trouble breathing. Your heartbeat is very fast. These symptoms may be an emergency. Do not wait to see if the symptoms will go away. Get medical help right away. Call your local emergency services (911 in the [place] Do not drive yourself to the hospital. Summary A cough helps to clear your throat and lungs. Many things can cause a cough. Take weoe-xpi-pdqqris and prescription medicines only as told by your doctor. Always cover your mouth when you cough. Contact a doctor if you have new symptoms or you have a cough that does not get better or gets worse. This information is not intended to replace advice given to you by your health care provider. Make sure you discuss any questions you have with your health care provider. Document Released: 05/31/2012 Document Revised: 10/07/2019 Document Reviewed: 10/07/2019 [employer] Patient Education 2019 [employer]. Follow Up Care 09/27/2022 22:50:28 With:Fatoumata Oneill Address:Unknown When:09/30/2022 Comments:Follow-up with your primary care provider in 3 to 5 days. If symptoms worsen, do not improve, or new symptoms arise please report back to emergency department for further evaluation. [facility] Evaluation + Plan note 09-27-2022 Note Date & Type Note Facility 09-27-2022 Evaluation + Plan note Extrac viet from: Title:ED Note Author:Felipe GOMEZ, Rober Burnette te:09/27/22 Constipation (K59.00: Consti pation, unspecified) Upper respiratory infection, viral (J06.9: Acute upper respiratory infection, unspecified) Orders: polyethylene glycol 3350, 17 gm, Oral, Daily, # 12 EA, Refills(s) 0, Pharmacy: [facility] #[id number], 157.5, cm, 09/27/22 22:57:00 EST, Height/Length Dosing, 51.3, kg, 09/27/22 22:57:00 EST, Weight Dosing Group A Strep by PCR Rapid Strep w/rfx Diagnostic Tests Pending * Group A Strep by PCR 09/27/22 [facility] Evaluation + Plan note 04-14-2021 Laboratory Note Date & Type Note Facility 04-14-2021 Evaluation + Plan note Future Scheduled TestsRapid Strep w/rfx 04/14/21 [facility] Evaluation note Note Date & Type Note Facility Evaluation note No assessment information availa [facility] Work Phone: Evaluation note Note Date & Type Note Facility Evaluation note No Information [facility] [employer] Other Hospital course Narrative Note Date & Type Note Facility Hospital course Narrative No data available for this section [facility] Hospital Discharge instructions Note Date & Type Note Facility Hospital Discharge instructions No data available for this section [facility] Progress note Note Date & Type Note Facility Progress note No data available for this section [facility] Summary Purpose Family History No Family History Records FoundNo Family History Records FoundNo Family History Records FoundNo Family History Records FoundNo Family History Records FoundNo Family History Records FoundNo Family History Records Found Advance Directives No Advanced Directives Records FoundNo Advanced Directives Records FoundNo Advanced Directives Records FoundNo Advanced Directives Records FoundNo Advanced Directives Records FoundNo Advanced Directives Records FoundNo Advanced Directives Records Found Additional Source Comments INFORMATION SOURCE (unrecogn ized section and content) DATE CREATED AUTHOR 07/16/2018 [facility] DATE CREATED AUTHOR AUTHOR'S ORGANIZ ATION 11/22/2019 [facility] DATE CREATED AUTHOR AUTHOR'S ORGANIZ ATION 12/30/2022 [facility] DATE CREATED AUTHOR AUTHOR'S ORGANIZ ATION 07/25/2023 [facility] DATE CREATED AUTHOR AUTHOR'S ORGANIZ ATION 10/01/2023 [facility] DATE CREATED AUTHOR AUTHOR'S ORGANIZ ATION 03/14/2024 [facility] DATE CREATED AUTHOR AUTHOR'S ORGANIZ ATION 06/06/2024 [facility] [employer] Patient Care team informatio n (unrecognized section and content) Team Status: Inactive Member Role Status Dates POLLY CollinsC Attending Provider Active Goals (unrecognized section and content) Goals may be documented in a n alternate section REASON FOR VISIT (unrecogniz ed section and content) POSSIBLE UTIHARD LUMP ON LEF T ARMPOSSIBLE UTINo Information FOR RECORDS PERTAINING TO PATIENTS WHO ARE OR HAVE BEEN ENROLLED IN A CHEMICAL DEPENDENCY/SUBSTANCEABUSE PROGRAM, SOME INFORMATION MAY BE OMITTED. This clinical summary was aggregated from multiple sources. Caution should be exercised in using it in the provision of clinical care. This summary normalizes information from multiple sources, and as a consequence, information in this document may materially change the coding, format and clinical context of patient data. In addition, data may be omitted in some cases. CLINICAL DECISIONS SHOULD BE BASED ON THE PRIMARY CLINICAL RECORDS. [facility]. provides no warranty or guarantee of the accuracy or completeness of information in this document.
[2024-07-11 16:10] LABS: Age Gdln ACOG Testing Note (.); IGP, rfx Aptima HPV ASCU Note (.)
== END 2024-07-03 20:00 | disposition home or self-care (01) ==
LOC: LAB 19:59
PROVIDERS: Visit Provider Obstetrics & Gynecology
DX: Z01.419 Encounter for gynecological examination (general) (routine) without abnormal findings (principal)
CPT/HCPCS: 88175

== ENCOUNTER 2024-07-04 09:00 | Outpatient (OUT) | payer OTHER, SELFPAY ==
--- NOTE | 2024-07-04 09:03 | US_ITS ---
[address] [address] Patient Name: TANNER RAMIREZ MRN: [id number] date: 2000 Sex: F Assigned Patient Location: [facility] Current Patient Location: [facility] Accession/Order Number: [id number] Exam Date: 07/04/2024 09:04 Report Date: 07/04/2024 10:31 At the request of: WILL CRESPO Procedure: US OB transvaginal EXAM: US OB placenta, US OB transvaginal HISTORY: LOW LYING PLACENTA COMPARISON: 06/05/2024 TECHNIQUE: Transabdominal and transvaginal FINDINGS: [place] intrauterine gestation position: Cephalic presentation, longitudinal lie Placenta: Anterior. Grade 1. The placental is 6.6 cm from the internal os Heart rate: 134 bpm Cervix: 4.9 cm, closed Clinical age: 24 weeks 5 days Clinical JOSE: 10/19/2024 US/US OB transvaginal IMPRESSION: The placenta is now 6.6 cm from the internal cervical os Closed cervix measuring 4.9 cm in length Electronically authenticated by: LEE CLAY Date: 07/04/2024 10:31
--- NOTE | 2024-07-04 09:03 | US_ITS ---
[address] [address] Patient Name: TANNER RAMIREZ MRN: [id number] date: 2000 Sex: F Assigned Patient Location: [facility] Current Patient Location: [facility] Accession/Order Number: [id number] Exam Date: 07/04/2024 09:03 Report Date: 07/04/2024 10:31 At the request of: WILL CRESPO Procedure: US OB placenta EXAM: US OB placenta, US OB transvaginal HISTORY: LOW LYING PLACENTA COMPARISON: 06/05/2024 TECHNIQUE: Transabdominal and transvaginal FINDINGS: [place] intrauterine gestation position: Cephalic presentation, longitudinal lie Placenta: Anterior. Grade 1. The placental is 6.6 cm from the internal os Heart rate: 134 bpm Cervix: 4.9 cm, closed Clinical age: 24 weeks 5 days Clinical JOSE: 10/19/2024 US/US OB placenta IMPRESSION: The placenta is now 6.6 cm from the internal cervical os Closed cervix measuring 4.9 cm in length Electronically authenticated by: LEE CLAY Date: 07/04/2024 10:31
== END 2024-07-04 09:01 | disposition home or self-care (01) ==
LOC: NOMS 09:00
PROVIDERS: Visit Provider Obstetrics & Gynecology
DX: O44.43 Low lying placenta NOS or without hemorrhage, third trimester (principal); Z3A.24 24 weeks gestation of pregnancy
CPT/HCPCS: 76815; 76817

== ENCOUNTER 2024-08-03 15:46 | Observation (INO) | payer OTHER, SELFPAY ==
--- OUTSIDE RECORDS SUMMARY | 2024-08-03 15:50 | XMS_ITS | CCD ---
Author Organization [facility] Care Team Providers Care Layout Man Name Role Phone OKSANAMAIRA ECHEVARRIA Unavailable Unavailable TOBY, ROSE MARY Unavailable Unavailable TOBY, ROSE MARY Unavailable Unavailable SONDIKE, CONOR B Unavailable Unavailable SONDIKE, CONOR B Unavailable Unavailable TOBY, ROSE MARY Unavailable Unavailable HISSETT, JOON Unavailable Unavailable TOBY, ROSE MARY Unavailable Unavailable JOSE LUIS NORIEGA Unavailable Unavailable NOAH MCCALLUM Unavailable Unavailable MAIDA REEVES Unavailable Unavailable TOBY, Rose Mary A Primary Care Physician Fatoumata Oneill Primary Care Physician MEHDI ., DR SOLIS Attending Unavailable MEHDI ., DR SOLIS Admitting Unavailable KARASIK ., DR CEE Attending Unavailabl e MISC, DR CORNEJO Primary Care Unavailable KARASIK ., DR CEE Consulting Unavailabl e KARASIK ., DR CEE Admitting Unavailabl e ZIEBER, DR TEAGAN Jurado Consulting Unavailable MISC, DR CORNEJO Primary Care Unavailable MEHDI ., DR SOLIS Attending Unavailable MEHDI ., DR SOLIS Consulting Unavailable MEHDI ., DR SOLIS Admitting Unavailable MEHDI ., DR SOLIS Attending Unavailable MEHDI ., DR SOLIS Consulting Unavailable MEHDI ., DR SOLIS Admitting Unavailable MEHDI ., DR SOLIS Attending Unavailable MEHDI ., DR SOLIS Consulting Unavailable MEHDI ., DR SOLIS Admitting Unavailable ZIEBER, DR TEAGAN Jurado Consulting Unavailable MISC, DR CORNEJO Primary Care Unavailable MEHDI ., DR SOLIS Attending Unavailable MEHDI ., DR SOLIS Consulting Unavailable MEHDI ., DR SOLIS Admitting Unavailable MISC, DR CORNEJO Primary Care Unavailable KARASIK ., DR CEE Attending Unavailabl e KARASIK ., DR CEE Consulting Unavailabl e KARASIK ., DR CEE Admitting Unavailabl e WEST, DR LEE Arceo Consulting Unavailable MEHDI ., DR SOLIS Consulting Unavailable MISC, DR CORNEJO Primary Care Unavailable MEHDI ., DR SOLIS Attending Unavailable MEHDI ., DR SOLIS Consulting Unavailable MEHDI ., DR SOLIS Admitting Unavailable MISC, DR CORNEJO Primary Care Unavailable VINEET ., RENATA Admitting Unavailable VINEET ., RENATA Attending Unavailable VINEET ., RENATA Consulting Unavailable MEHDI ., DR SOLIS Attending Unavailable MEHDI ., DR SOLIS Consulting Unavailable MEHDI ., DR SOLIS Admitting Unavailable MEHDI ., DR SOLIS Attending Unavailable MEHDI ., DR SOLIS Consulting Unavailable MEHDI ., DR SOLIS Admitting Unavailable MISC, DR CORNEJO Primary Care Unavailable MEHDI ., DR SOLIS Consulting Unavailable MEHDI ., DR SOLIS Attending Unavailable MEHDI ., DR SOLIS Admitting Unavailable ZIEBER, DR TEAGAN Jurado Consulting Unavailable MEHDI ., DR SOLIS Attending Unavailable MEHDI ., DR SOLIS Consulting Unavailable MEHDI ., DR SOLIS Admitting Unavailable MEHDI ., DR SOLIS Attending Unavailable MEHDI ., DR SOLIS Consulting Unavailable MEHDI ., DR SOLIS Admitting Unavailable ZIEBER, DR TEAGAN Jurado Consulting Unavailable MISC, DR CORNEJO Primary Care Unavailable MEHDI ., DR SOLIS Attending Unavailable MEHDI ., DR SOLIS Consulting Unavailable MEHDI ., DR SOLIS Admitting Unavailable MEHDI ., DR SOLIS Attending Unavailable MEHDI ., DR SOLIS Consulting Unavailable MEHDI ., DR SOLIS Admitting Unavailable MISC, DR CORNEJO Primary Care Unavailable MEHDI ., DR SOLIS Consulting Unavailable MEHDI ., DR SOLIS Admitting Unavailable MEHDI ., DR SOLIS Attending Unavailable MISC, DR CORNEJO Primary Care Unavailable REINECK, DR CONOR Lux Consulting Unavailabl e REINECK, DR CONOR Lux Admitting Unavailabl e REINECK, DR CONOR Lux Attending Unavailabl e MEHDI ., DR SOLIS Attending Unavailable MEHDI ., DR SOLIS Consulting Unavailable MEHDI ., DR SOLIS Admitting Unavailable ZIEBER, DR TEAGAN Jurado Consulting Unavailable MISC, DR CORNEJO Primary Care Unavailable KARASIK ., DR CEE Consulting Unavailabl e KARASIK ., DR CEE Admitting Unavailabl e KARASIK ., DR CEE Attending Unavailabl e MEHDI ., DR SOLIS Consulting Unavailable ZIEBER, DR TEAGAN Jurado Consulting Unavailable MEHDI ., DR SOLIS Attending Unavailable MISC, DR CORNEJO Primary Care Unavailable MEHDI ., DR SOLIS Consulting Unavailable MEHDI ., DR SOLIS Admitting Unavailable KARASIK ., DR CEE Attending Unavailabl e MISC, DR CORNEJO Primary Care Unavailable KARASIK ., DR CEE Consulting Unavailabl e KARASIK ., DR CEE Admitting Unavailabl e WEST, DR LEE Arceo Consulting Unavailable MEHDI ., DR SOLIS Consulting Unavailable MISC, DR CORNEJO Primary Care Unavailable MEHDI ., DR SOLIS Attending Unavailable MEHDI ., DR SOLIS Consulting Unavailable MEHDI ., DR SOLIS Admitting Unavailable ZIEBER, DR TEAGAN Jurado Consulting Unavailable MISC, DR CORNEJO Primary Care Unavailable CHRISTIANO KHOURY Consulting Unavailable IRAIDA, CHRISTIANO Admitting Unavailable CHRISTIANO KHOURY Attending Unavailable MISC, DR CORNEJO Primary Care Unavailable MEHDI ., DR SOLIS Attending Unavailable KARASIK ., DR CEE Consulting Unavailabl e MEHDI ., DR SOLIS Admitting Unavailable MEHDI ., DR SOLIS Consulting Unavailable ZIEBER, DR TEAGAN Jurado Consulting Unavailable MISC, DR CORNEJO Primary Care Unavailable KARASIK ., DR CEE Consulting Unavailabl e KARASIK ., DR CEE Admitting Unavailabl e KARASIK ., DR CEE Attending Unavailabl e MEHDI ., DR SOLIS Consulting Unavailable ZIEBER, DR TEAGAN Jurado Consulting Unavailable MISC, DR CORNEJO Primary Care Unavailable KARASIK ., DR CEE Consulting Unavailabl e KARASIK ., DR CEE Admitting Unavailabl e KARASIK ., DR CEE Attending Unavailabl e WEST, DR LEE Arceo Consulting Unavailable MEHDI ., DR SOLIS Consulting Unavailable MISC, DR CORNEJO Primary Care Unavailable MEHDI ., DR SOLIS Attending Unavailable MEHDI ., DR SOLIS Admitting Unavailable MISC, DR CORNEJO Primary Care Unavailable DEBBIE ROJAS Admitting Unavailable DEBBIE ROJAS Attending Unavailable DEBBIE ROJAS Consulting Unavailable MAHAD OLIVEROS Consulting Unavailable MISC, DR CORNEJO Primary Care Unavailable MEHDI ., DR SOLIS Attending Unavailable MEHDI ., DR SOLIS Consulting Unavailable MEHDI ., DR SOLIS Admitting Unavailable MAREK LAI Consulting Unavailable MEHDI ., DR SOLIS Procedure Practitioner Unavail able MIS, DR CORNEJO Primary Care Unavailable MEHDI ., DR SOLIS Attending Unavailable MEHDI ., DR SOLIS Consulting Unavailable MEHDI ., DR SOLIS Admitting Unavailable MISC, DR CORNEJO Primary Care Unavailable MEHDI ., DR SOLIS Attending Unavailable MEHDI ., DR SOLIS Consulting Unavailable MEHDI ., DR SOLIS Admitting Unavailable ZIEBER, DR TEAGAN Jurado Consulting Unavailable MIS, DR CORNEJO Primary Care Unavailable MEHDI ., DR SOLIS Attending Unavailable [place], DR LEE Arceo Consulting Unavailable MEHDI ., DR SOLIS Admitting Unavailable MEHDI ., DR SOLIS Consulting Unavailable MEHDI ., DR SOLIS Attending Unavailable MEHDI ., DR SOLIS Consulting Unavailable MEHDI ., DR SOLIS Admitting Unavailable ALINE Tomlinson Attending Provider [phone] Mel Tomlinson Unavailable Augusto Brewer Unavailable Mel Tomlinson Admitting Unavailable Mel Tomlinson Attending Unavailable NO PCP, NO PCP Primary Care Unavailable NO PCP, NO PCP Primary Care Unavailable SLIME ELLER Attending Unavailable SLIME ELLER Referring Unavailable NO PCP, NO PCP Primary Care Unavailable Jesusita Torrez MD Primary Care Provider NASIR HARDING Attending Unavailable RENATA DUBOSE Attending Unavailable NASIR HARDING Attending Unavailable Medications Current Medications Medication [...] / neomycin 3.5 mg/ml / polymyxin b 27306 unt/ml otic suspension (4 sources) Aminoglycoside Antibacterial, Polymyxin-class Antibacterial, Corticosteroid Start: 07-17-2023 Neomycin-Polymyx in-HC 3.5-85099-0 3 drops right ear Three times a day for 7 days Jul, Active omeprazole 20 mg delayed release oral capsule (5 sources) Proton Pump Inhibitor Start: 07-03-2024 End: 07-03-2025 take 1 capsule by mouth once at bedtime omeprazole (PriLOSEC) [address] capsule Indications: Heartburn during in second trimester Take 1 capsule (20 mg) by mouth at bedtime Do not crush or chew. 30 capsule 11 07/03/2024 07/03/2025 Active ondansetron 4 mg oral tablet (16 sources) Serotonin-3 Receptor Antagonist Start: 05-09-2024 take 1 tablet by mouth every six hours as needed for nausea and vomiting and nausea and nausea ondansetron (Zofran) 4 MG tablet Indications: Nausea Take 1 tablet (4 mg) by mouth every 6 (six) hours if needed for nausea or vomiting for up to 120 doses Take 1 tablet by mouth every 6 hours as needed for nausea. 30 tablet 3 05/09/2024 Active Start: 09-25-2023 ondansetron OD T (Zofran-ODT) 4 MG disintegrating tablet Take 4 mg by mouth 09/25/2023 Active take 1 tablet by sri th every eight hours as needed Ondansetron 4 MG DISSOLVE 1 TABLET ON THE TOUNGE EVERY 8 HOURS NEEDED Oral for 2 Days Not-Taking polyethylene glycol 3350 70933 mg powder for oral solution (5 sources) Osmotic Laxative Start: 09-27-2022 take 17 g by mouth once daily Miralax 3350 17 gram packet 17 gm, Oral, Daily, # 12 EA, Refills(s) 0, Pharmacy: [facility]/pharmacy #[id number], 157.5, cm, 09/27/22 22:57:00 EST, Height/Length Dosing, [...] 500 MG Oral for 7 Days Not-Taking venlafaxine 50 mg oral tablet (4 sources) Serotonin and Norepinephrine Reuptake Inhibitor Venlafaxine HCl 50 MG Oral for 30 Days Not-Taking Problems Active Problems Problem Classification Problem Date Documented Da te Episodic/Chronic Anxiety disorders (6 sources) Anxiety; Translations: [Anxiety disorder, unspecified] Onset: 06-12-2023 06-12-2023 Chronic Disorders usually diagnosed in infancy, childhood, or adolescence (8 sources) 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; Translations: [Other feeding disorders of infancy and terrazzo mechanic helper] Onset: 06-12-2023 02-12-2019 Chronic Genitourinary symptoms and ill-defined conditions (3 sources) Personal history of urinary (tract) infections; Translations: [Dysuria] Onset: 11-21-2022 Episodic Immunizations and screening for infectious disease (2 sources) Encounter for screening for infections with a predominantly sexual mode of transmission; Translations: [Contact with and (suspected) exposure to infections with a predominantly sexual mode of transmission] Onset: 05-20-2022 Episodic Menstrual disorders (18 sources) Dysmenorrhea; Translations: [Irregular menstruation, unspecified] Onset: 02-11-2022 02-12-2019 Chronic Mood disorders (6 sources) Depressive disorder; Translations: [Depressive disorder] Onset: 06-07-2018 06-12-2023 Chronic Other complications of (2 sources) Heartburn; Translations: [Other specified related conditions, second trimester] 07-03-2024 Episodic Other diseases of bladder and urethra (6 sources) Overactive bladder; Translations: [Overactive bladder] Onset: 09-15-2016 06-12-2023 Chronic Other ear and sense organ disorders [...] other infectious and parasitic diseases Episodic Other and delivery including normal (16 sources) Encounter for routine follow-up; Translations: [Single live ] Onset: 01-27-2022 Episodic Other screening for suspected conditions (not mental disorders or infectious disease) (16 sources) Encounter for screening for diabetes mellitus; Translations: [Encounter for other specified screening] Onset: 02-16-2022 Episodic Other skin disorders (1 source) Sebaceous cyst Episodic Otitis media and related conditions (2 [...] source) Urinary Problem- Posible Preganacy Onset: 03-11-2024 Unclassified (6 sources) OB Reminders Onset: 05-14-2024 05-14-2024 Viral infection (1 source) COVID-19; Translations: [COVID-19] Onset: 03-03-2022 Past or Other Problems Problem Classification Problem Date Documented Date Episodic/Chronic Abdominal pain (8 sources) Unspecified abdominal pain; Translations: [Lower abdominal pain, unspecified] Onset: 08-05-2022 Episodic Acute and chronic tonsillitis (8 sources) Tonsillitis; Translations: [Acute tonsillitis, unspecified] Onset: 06-12-2023 05-19-2021 Episodic Asthma (2 sources) Asthma Resolved: 10-02-2016 11-25-2017 Chronic Comment on above: pt does not have ast hma - seen specialist to confirm not having asthma Blindness and vision defects (12 sources) Disorder of refraction AND/OR accommodation; Translations: [Other disorders of refraction] Onset: 02-11-2014 06-12-2023 Episodic Hemorrhage during ; abruptio placenta; placenta previa (4 sources) Hemorrhage in early , unspecified; Translations: [HEMORRHAGE EARLY UNS] Onset: 02-16-2022 Episodic Inflammatory diseases of female pelvic organs (6 sources) Acute vaginitis; Translations: [Acute vaginitis] Onset: 06-12-2023 06-12-2023 Episodic Intestinal infection (17 sources) Viral gastritis; Translations: [Viral gastroenteritis] Onset: 12-29-2022 12-11-2019 Episodic OB-related trauma to perineum and vulva (1 source) Other specified trauma to perineum and vulva; Translations: [OTHER SPEC TRAUMA PERINEUM AND VULVA] Onset: 09-15-2022 Episodic Other complications of (5 sources) Maternal care for other known or suspected poor growth, third trimester, not applicable or unspecified; Translations: [MAT CARE OTH AK FTL GRTH 3RD TM UNS] Onset: 08-08-2022 [...] COND UNS TRI] Onset: 05-19-2022 Episodic Other nutritional; endocrine; and metabolic disorders (8 sources) Body mass index less than 20; Translations: [Body mass index (BMI) 19.9 or less, adult] Onset: 06-12-2023 2021 Episodic Other upper respiratory infections (17 sources) Pharyngitis; Translations: [Sore throat symptom] Onset: 09-27-2022 05-19-2021 Episodic Residual codes; unclassified (1 source) 38 [...] WEEKS GESTATION OF ] Onset: 03-02-2022 Episodic Suicide and intentional self-inflicted injury (6 sources) Poisoning by psychotropic agent; Translations: [Poisoning by unspecified antipsychotics and neuroleptics, intentional self-harm, initial encounter] Onset: 06-06-2018 06-12-2023 Episodic Unclassified (1 source) LOM 09/19/2011( Confirmed ) 09-26-2011 Unclassified (1 source) LOM 09/19/2011 09-26-2011 Unclassified (1 source) CONTACT W/AND (SUSP) EXPOS COVID-19; Translations: [CONTACT W/AND (SUSP) EXPOS COVID-19] Onset: 02-25-2022 Urinary tract infections (10 sources) Urinary tract infectious disease; Translations: [Urinary tract infection, site not specified] Onset: 09-15-2016 10-16-2016 Episodic Results Test Name Value Interpretation Reference Range Facility IGP,APTIMA HPV,AGE GDLNon AGE GDLN ACOG TESTING Note . [facility] Comment on above: TESTS RESULT FLAG UN ITS REF RANGE LAB Clinician Provided Cytology Information Source.............Cervix Other.............. No. of containers..01 ThinPrep Vial Age Algo ACOG Danni... FLAG LEGEND: L-Low Normal,H-High Normal,LL-Alert Low,HH-Alert High <-Panic Low,>-Panic High,A-Abnormal,AA-Critical Abnormal Performed at: 01 =G [facility] [id number] Leticia Longo MD, IGP, RFX APTIMA HPV ASCU Note . [facility] Comment on above: TESTS RESULT FLAG UN ITS REF RANGE LAB DIAGNOSIS: 02 NEGATIVE FOR INTRAEPITHELIAL LESION OR MALIGNANCY. THIS SPECIMEN WAS RESCREENED PART OF OUR SODIUM CHLORITE OPERATOR PROGRAM. Specimen adequacy: 02 Satisfactory for evaluation. No endocervical component is identified. Performed by: 02 Margi Jamison, Team Driver (ASCP) QC reviewed by: 02 Nicole Houston, Team Driver . 02 Note: Note 02 The Pap smear is a screening test designed to aid in the detection of premalignant and malignant conditions of the uterine cervix. It is not a diagnostic procedure and should not be used as the sole means of detecting cervical cancer. Both false-positive and false-negative reports do occur. Test Methodology: Note 02 This liquid based ThinPrep(R) pap test was screened with the use of an image guided system. . 02 The HPV DNA reflex criteria were not met with this specimen result therefore, no HPV testing was performed. FLAG LEGEND: L-Low Normal,H-High Normal,LL-Alert Low,HH-Alert High <-Panic Low,>-Panic High,A-Abnormal,AA-Critical Abnormal Performed at: [address] [phone] Leticia Longo MD, Performed at: =G - [facility] [id number] Director Of Medical Review: Leticia Longo MD, Phone: [phone] Performed at: [address] [id number] Director Of Medical Review: Leticia Longo MD, Phone: [phone] [facility] URETHRITIS/DISCHARGE PLUS VA GINITIS (HTRX)on 07-05-2024 ATOPOBIUM VAGINAE 0.000 [facility] ATOPOBIUM VAGINAE Not detected [facility] BVAB 2,3 (BACTERIAL VAGINOSIS ASSOCIATED BACTERIA 2, 3); MOBILUNCUS SPP 0.000 [facility] BVAB 2,3 (BACTERIAL VAGINOSIS ASSOCIATED BACTERIA 2, 3); MOBILUNCUS SPP Not detected [facility] ASHLEY ALBICANS, PARAPSILOSIS, TROPICALIS 0.000 [facility] ASHLEY ALBICANS, PARAPSILOSIS, TROPICALIS Not detected [facility] ASHLEY GLABRATA 0.000 [facility] ASHLEY GLABRATA Not detected [facility] ASHLEY KRUSEI 0.000 [facility] ASHLEY KRUSEI Not detected [facility] CHLAMYDIA TRACHOMATIS 0.000 [facility] CHLAMYDIA TRACHOMATIS Not detected [facility] GARDNERELLA VAGINALIS 0.000 [facility] GARDNERELLA VAGINALIS Not detected [facility] MEGASPHAERA (TYPES 1, 2) 0.000 [facility] MEGASPHAERA (TYPES 1, 2) Not detected [facility] MYCOPLASMA GENITALIUM 0.000 [facility] MYCOPLASMA GENITALIUM Not detected [facility] NEISSERIA GONORRHOEAE 0.000 [facility] NEISSERIA GONORRHOEAE Not detected [facility] TRICHOMONAS VAGINALIS 0.000 [facility] TRICHOMONAS VAGINALIS Not detected [facility] CBC AND AUTO DIFFon 03-11-20 24 ABSOLUTE BASOPHIL 0.0 X10E9/L Normal 0.0-0.2 [facility] Comment on above: Performed By: #### C MEME [facility], #### [facility] ([id number]) [address] [place] [address] ABSOLUTE NEUTROPHIL 7.1 X10E9/L High 1.5-6.6 [facility] Comment on above: Performed By: #### C [facility]E [facility], #### [facility] ([id number]) [address] [place] [address] Basophils/100 WBC (Bld) 0.2 % Normal [facility] Comment on above: Performed By: #### C [facility], #### [facility] ([id number]) [address] [place] [address] Eosinophils (Bld) [#/Vol] 0.0 10*3/uL Normal 0.0-0.4 [facility] Comment on above: Performed By: #### Dar VALENTINE CMP, #### [facility] ([id number]) [address] [place] [address] Eosinophils/100 WBC (Bld) 0.4 % Normal [facility] Comment on above: Performed By: #### Dar VALENTINE [facility], #### [facility] ([id number]) [address] [place] [address]342 Erythrocyte distribution width (RBC) [Ratio] 13.4 % Normal 11.5-15.0 [facility] Comment on above: Performed By: #### Dar VALENTINE CMP, #### [facility] ([id number]) [address] [place] [address] Hematocrit (Bld) [Volume fraction] 39.9 % Normal 35-47 [facility] Comment on above: Performed By: #### Dar VALENTINE [facility], #### [facility] ([id number]) [address] [place] [address]32 Hemoglobin (Bld) [Mass/Vol] 13.9 g/dL Normal 11.7-15.5 [facility] Comment on above: Performed By: #### Dar VALENTINE [facility], #### [facility] ([id number]) [address] [place] [address] Lymphocytes (Bld) [#/Vol] 2.0 10*3/uL Normal 1.0-3.5 [facility] Comment on above: Performed By: #### Dar VALENTINE CMP, #### [facility] ([id number]) [address] [place] [address]53[address] Lymphocytes/100 WBC (Bld) 20.6 % Normal [facility] Comment on above: Performed By: #### Dar VALENTINE CMP, #### [facility] ([id number]) [address] [place] [address]131 MCH (RBC) [Entitic mass] 29.4 pg Normal 27-34 [facility] Comment on above: Performed By: #### Dar VALENTINE CMP, #### [facility] ([id number]) [address] [place] [address]17 MCHC (RBC) [Mass/Vol] 34.9 g/dL Normal 32-36 [facility] Comment on above: Performed By: #### Dar VALENTINE CMP, #### [facility] ([id number]) [address] [place] [address]131 MCV (RBC) [Entitic vol] 84 fL Normal 80-100 [facility] Comment on above: Performed By: #### Dar VALENTINE CMP, #### [facility] ([id number]) [address] [place] [address]92 Monocytes (Bld) [#/Vol] 0.7 10*3/uL Normal 0-0.9 [facility] Comment on above: Performed By: #### Dar VALENTINE CMP, #### [facility] ([id number]) [address] [place] [address] 74763 Monocytes/100 WBC (Bld) 7.4 % Normal [facility] Comment on above: Performed By: #### Dar VALENTINE CMP, #### [facility] ([id number]) [address] [place] [address]476 Neutrophils/100 WBC (Bld) 71.4 % Normal [facility] Comment on above: Performed By: #### Dar VALENTINE CMP, #### [facility] ([id number]) [address] [place] [address] 90692 Platelet mean volume (Bld) [Entitic vol] 9.0 fL Normal 7-12 [facility] Comment on above: Performed By: #### C BCA, CMP, #### [facility] ([id number]) [address] [place] [address]28[address] Platelets (Bld) [#/Vol] 194 10*3/uL Normal 150-450 [facility] Comment on above: Performed By: #### C BCA, CMP, #### [facility] ([id number]) [address] [place] [address]13 RBC COUNT 4.74 X10E12/L Normal 3.80-5.20 [facility] Comment on above: Performed By: #### C BCA, CMP, #### [facility] ([id number]) [address] [place] [address]6446 WBC (Bld) [#/Vol] 10.0 10*3/uL Normal 4.0-11.0 [facility] Comment on above: Performed By: #### C BCA, CMP, #### [facility] ([id number]) [address] [place] [address] COMPREHENSIVE METABOLIC PANE Vini 03-11-2024 Albumin [Mass/Vol] 4.2 g/dL Normal 3.2-5.3 [facility] Comment on above: Performed By: #### C BCA, CMP, #### [facility] ([id number]) [address] [place] [address] 19268 ALP [Catalytic activity/Vol] 47 U/L Normal 39-130 [facility] Comment on above: Performed By: #### C BCA, CMP, #### [facility] ([id number]) [address] [place] [address] [place] [address] ALT [Catalytic activity/Vol] 15 U/L Normal 0-31 [facility] Comment on above: Performed By: #### C MEME CMP, #### [facility] ([id number]) [address] [place] [address] Anion gap [Moles/Vol] 7 mmol/L Normal 5-15 [facility] Comment on above: Performed By: #### C MEME CMP, #### [facility] ([id number]) [address] [place] [address] AST [Catalytic activity/Vol] 15 U/L Normal 0-41 [facility] Comment on above: Performed By: #### C AUREA VALENTINE, #### [facility] ([id number]) [address] [place] [address] [place] [address] Bilirubin [Mass/Vol] 0.5 mg/dL Normal 0.3-1.2 [facility] Comment on above: Performed By: #### C MEME CMP, #### [facility] ([id number]) [address] [place] [address]80 Calcium [Mass/Vol] 8.7 mg/dL Normal 8.5-10.5 [facility] Comment on above: Performed By: #### C MEME CMP, #### [facility] ([id number]) [address] [place] [address] [place] [address] Chloride [Moles/Vol] 103 mmol/L Normal 98-109 [facility] Comment on above: Performed By: #### C BCA, CMP, #### [facility] ([id number]) [address] [place] [address] 11851 CO2 [Moles/Vol] 22 mmol/L Normal 22-32 [facility] Comment on above: Performed By: #### C AUREA VALENTINE, #### [facility] ([id number]) [address] [place] [address] 23376 Creatinine [Mass/Vol] 0.72 mg/dL Normal 0.40-1.00 [facility] Comment on above: Result Comment: METH OD TRACEABLE TO IDMS STANDARD Performed By: #### C AUREA VALENTINE, #### [facility] ([id number]) [address] [place] [address]227 eGFR (CKD-EPI) NON-RACE DEPENDENT >90 Normal >59 [facility] Comment on above: Result Comment: Reported eGFR is based on the CKD-EPI 2020 equation that does not use a race coefficient. Performed By: #### C AUREA VALENTINE, #### [facility] ([id number]) [address] [place] [address] 10737 Glucose [Mass/Vol] 81 mg/dL Normal 65-99 [facility] Comment on above: Performed By: #### C AUREA VALENTINE, #### [facility] ([id number]) [address] [place] [address] 53388 Potassium [Moles/Vol] 3.7 mmol/L Normal 3.5-5.0 [facility] Comment on above: Performed By: #### C AUREA VALENTINE, #### [facility] ([id number]) [address] [place] [address] 55585 Protein [Mass/Vol] 7.4 g/dL Normal 6.0-8.0 [facility] Comment on above: Performed By: #### C AUREA VALENTINE, #### [facility] ([id number]) [address] [place] [address] 90011 Sodium [Moles/Vol] 132 mmol/L Low 134-146 [facility] Comment on above: Performed By: #### C BCA, CMP, #### [facility] ([id number]) [address] [place] [address] 89635 Urea nitrogen [Mass/Vol] 14 mg/dL Normal 5-23 [facility] Comment on above: Performed By: #### C BCA, CMP, #### [facility] ([id number]) [address] [place] [address] 25206 HCG ( test) Ql (U)o n 03-11-2024 Beta HCG ( test) Ql (U) Positive Abnormal NEG [facility] Comment on above: Performed By: #### 2 106-3 #### [facility] ([id number]) [address] [place] [address] 69541 HCG.beta subunit IA 3rd IS Q non 03-11-2024 HCG.beta subunit Qn 987924 m[IU]/mL Normal [facility] Comment on above: Result Comment: NEW REFERENCE [...] neoplasms. Performed By: #### C BCA, CMP, #### [facility] ([id number]) [address] [place] [address] 18658 URINE CULTUREon 03-11-2024 Bacteria identified Cx Nom (U) CULTURE RESULTS <10,000 ORGANISMS/ML NORMAL URO GENITAL RICK Normal [facility] Comment on above: Performed By: #### 6 30-4 #### [facility] ([id number]) [address] [place] [address], [address] [place] [address] URN MACROSCOPIC NURon 2023 BILIRUBIN FAWAD Negative Normal NEG [facility] Comment on above: Performed By: #### N UM #### [facility] ([id number]) [address] [place] [address] 64627 BLOOD/HGB FAWAD Negative Normal NEG [facility] Comment on above: Performed By: #### N UM #### [facility] ([id number]) [address] [place] [address] [place] [address] GLUCOSE FAWAD Negative Normal NEG [facility] Comment on above: Performed By: #### N UM #### [facility] ([id number]) [address] [place] [address] [place] [address] KETONES FAWAD Negative Normal NEG [facility] Comment on above: Performed By: #### N UM #### [facility] ([id number]) [address] [place] [address] [place] [address] LEUKOCYTE ESTERASE FAWAD Trace Abnormal NEG [facility] Comment on above: Performed By: #### N UM #### [facility] ([id number]) [address] [place] [address] [place] [address] NITRITE FAWAD Negative Normal NEG [facility] Comment on above: Performed By: #### N UM #### [facility] ([id number]) [address] [place] [address] 5[address] PH FAWAD 6.5 Normal 5.0-8.5 [facility] Comment on above: Performed By: #### N UM #### [facility] ([id number]) [address] [place] [address] PROTEIN FAWAD Negative Normal NEG [facility] Comment on above: Performed By: #### N UM #### [facility] ([id number]) [address] [place] [address]8311 SPECIFIC GRAVITY FAWAD 1.010 Normal 1.003-1.035 [facility] Comment on above: Performed By: #### N UM #### [facility] ([id number]) [address] [place] [address] 00827 UROBILINOGEN FAWAD 0.2 eu/dL Normal <1.1 [facility] Comment on above: Performed By: #### N UM #### [facility] ([id number]) [address] [place] [address] CT ABDOMEN AND PELVIS WO CON Ton [...] Robbins MD on 11/26/2023 5:33 PM Normal [facility] HCG ( test) Ql (U)o n 11-26-2023 Beta HCG ( test) Ql (U) Negative Normal NEG [facility] Comment on above: Performed By: #### 2 106-3 #### [facility] ([id number]) [address] [place] [address] 09629 URINE CULTUREon 11-26-2023 Bacteria identified Cx Nom [...] F TRIMETH/SULFAMETHOXA ZOLE S <=1/19 F Susceptible [facility] Comment on above: Performed By: #### 6 30-4 #### [facility] ([id number]) [address] [place] [address], [address] [place] [address] URN MACROSCOPIC NURon 2023 BILIRUBIN FAWAD Negative Normal NEG [facility] Comment on above: Performed By: #### N UM #### [facility] ([id number]) [address] [place] [address] 96760 BLOOD/HGB FAWAD Trace Abnormal NEG [facility] Comment on above: Performed By: #### N UM #### [facility] ([id number]) [address] [place] [address] 30702 GLUCOSE FAWAD Negative Normal NEG [facility] Comment on above: Performed By: #### N UM #### [facility] ([id number]) [address] [place] [address] KETONES FAWAD Negative Normal NEG [facility] Comment on above: Performed By: #### N UM #### [facility] ([id number]) [address] [place] [address] 17586 LEUKOCYTE ESTERASE FAWAD Trace Abnormal NEG [facility] Comment on above: Performed By: #### N UM #### [facility] ([id number]) [address] [place] [address] 47578 NITRITE FAWAD Negative Normal NEG [facility] Comment on above: Performed By: #### N UM #### [facility] ([id number]) [address] [place] [address] 78893 PH FAWAD 7.0 Normal 5.0-8.5 [facility] Comment on above: Performed By: #### N UM #### [facility] ([id number]) [address] [place] [address] 94555 PROTEIN FAWAD Negative Normal NEG [facility] Comment on above: Performed By: #### N UM #### [facility] ([id number]) [address] [place] [address] 62880 SPECIFIC GRAVITY FAWAD 1.020 Normal 1.003-1.035 [facility] Comment on above: Performed By: #### N UM #### [facility] ([id number]) [address] [place] [address] 98573 UROBILINOGEN FAWAD 0.2 eu/dL Normal <1.1 [facility] Comment on above: Performed By: #### N UM #### [facility] ([id number]) [address] [place] [address] 19390 ED Note-Physicianon 09-29-20 ED Note-Physician [id number] #[id number] Normal [facility] Urinalysis - AUTOMATEDon Appearance (U) clear [employer] Other Bilirubin Ql (U) Negative [employer] Other Color (U) light yellow [employer] Other Glucose Ql (U) Negative [employer] Other Hemoglobin Ql (U) Negative [employer] Other Ketones Ql (U) Negative [employer] Other Leukocyte esterase Test strip Ql (U) Negative [employer] Other Nitrite Ql (U) Negative [employer] Other pH (U) 6.0 [pH] [employer] Other Protein Ql (U) Negative [employer] Other Specific gravity (U) [Rel density] >1.030 [employer] Other Urobilinogen (U) [Mass/Vol] 0.2 mg/dL [employer] Other Urinalysis - AUTOMATED [employer] Other Vaginitis Plus (VG+)on 07-17 Vaginitis Plus (VG+) Negative Negative [employer] Other Vaginitis Plus (VG+) Low - 0 . [employer] Other Atopobium Vaginae Low - 0 Normal . [facility] Comment on above: Performed By: #### V AGINITIS+ #### [facility] , BVAB2 Low - 0 Normal . [facility] Comment on above: Performed By: #### V AGINITIS+ #### [facility] , Ashley Albicans, CHULA Negative Normal Negative [facility] Comment on above: Result Comment: This test was developed and its performance characteristics determined by [employer]. It has not been cleared or approved by the Food and Drug Administration. Performed By: #### V AGINITIS+ #### [facility] , Ashley Glabrata, CHULA Negative Normal Negative [facility] Comment on above: Result Comment: This test was developed and its performance characteristics determined by [employer]. It has not been cleared or approved by the Food and Drug Administration. PERFORMED BY: [facility] [place] [address] PATHOLOGIST PLATFORM SUPERVISOR NELL GAUTAM M.D. Performed By: #### V AGINITIS+ #### [facility] , Chlamydia Trachomotis, CHULA Negative Normal Negative [facility] Comment on above: Performed By: #### V AGINITIS+ #### [facility] , Megasphaera Low - 0 Normal . [facility] Comment on above: Result Comment: Calc [...] developed and its performance characteristics determined by [employer]. It has not been cleared or approved by the Food and Drug Administration. Performed By: #### V AGINITIS+ #### [facility] , Neisseria Gonorrhoeae, CHULA Negative Normal Negative [facility] Comment on above: Result Comment: Perf ormed at: =G - [facility] [address] [id number] Director Of Medical Review: Leticia Longo MD, Phone: [phone] Performed By: #### V AGINITIS+ #### [facility] , Tric Vag CHULA Negative Normal Negative [facility] Comment on above: Performed By: #### V AGINITIS+ #### [facility] , CBC AUTO DIFFon 12-27-2022 BASO # 0.0 103/ul Normal 0.0-0.1 [facility] Comment on above: Performed By: #### R PRQ #### [facility] [address] [place], [place] [address] Dr. Valerio Alexis Basophils/100 WBC (Bld) 0.2 % Normal 0.2-2.0 [facility] Comment on above: Performed By: #### R PRQ #### [facility] [address] [place] [address] Dr. Valerio Alexis EO # 0.1 103/ul Normal 0.0-0.7 [facility] Comment on above: Performed By: #### R PRQ #### [facility] [address] [place] [address] Dr. Valerio Alexis Eosinophils/100 WBC (Bld) 0.6 % Critically low 0.9-7.0 [facility] Comment on above: Performed By: #### R PRQ #### [facility] [address] [place] [address] Dr. Valerio Alexis Erythrocyte distribution width (RBC) [Ratio] 14.1 % Normal 11.0-15.0 [facility] Comment on above: Performed By: #### R PRQ #### [facility] [address] [place] [address] Dr. Valerio Alexis Hematocrit (Bld) [Volume fraction] 35.7 % Critically low 36.0-48.0 [facility] Comment on above: Performed By: #### R PRQ #### [facility] [address] [place] [address] Dr. Valerio Alexis Hemoglobin (Bld) [Mass/Vol] 11.9 g/dL Critically low 12.0-16.0 [facility] Comment on above: Performed By: #### R PRQ #### [facility] [address] [place] [address] Dr. Valerio Alexis IG # 0.02 10e3/ul Normal 0.00-0.03 [facility] Comment on above: Performed By: #### R PRQ #### [facility] [address] [place] [address] Dr. Valerio Alexis IG % 0.2 % Normal 0.0-0.5 [facility] Comment on above: Performed By: #### R PRQ #### [facility] [address] [place] [address] Dr. Valerio Alexis LYMPH # 1.0 103/ul Critically low 1.2-3.8 [facility] Comment on above: Performed By: #### R PRQ #### [facility] [address] [place] [address] [address] Valerio Alexis Lymphocytes/100 WBC (Bld) 12.4 % Critically low 20.5-60.0 [facility] Comment on above: Performed By: #### R PRQ #### [facility] [address] [place] [address] [address] Valerio Alexis MANUAL DIFF REQ NO Normal [facility] Comment on above: Performed By: #### R PRQ #### [facility] [address] [place] [address] [address] Valerio Alexis MCH (RBC) [Entitic mass] 26.7 pg Normal 26.7-34.0 [facility] Comment on above: Performed By: #### R PRQ #### [facility] [address] [place] [address] Dr. Valerio Alexis MCHC (RBC) [Mass/Vol] 33.3 g/dL Normal 29.9-35.2 [facility] Comment on above: Performed By: #### R PRQ #### [facility] [address] [place] [address] Dr. Valerio Alexis MCV (RBC) [Entitic vol] 80.2 fL Critically low 81.0-99.0 [facility] Comment on above: Performed By: #### R PRQ #### [facility] [address] [place] [address] Dr. Valerio Alexis MONO # 0.8 103/ul Normal 0.3-0.8 [facility] Comment on above: Performed By: #### R PRQ #### [facility] [address] [place] [address] Dr. Valerio Alexis Monocytes/100 WBC (Bld) 9.3 % Normal 1.7-12.0 [facility] Comment on above: Performed By: #### R PRQ #### [facility] [address] [place] [address] Dr. Valerio Alexis NEUT # 6.3 103/ul Normal 1.4-6.5 [facility] Comment on above: Performed By: #### R PRQ #### [facility] [address] [place] [address] [address] Valerio Alexis Neutrophils/100 WBC (Bld) 77.3 % Critically high 43.0-75.0 [facility] Comment on above: Performed By: #### R PRQ #### [facility] [address] [place] [address] [address] Valerio Alexis Platelet mean volume (Bld) [Entitic vol] 10.6 fL Normal 9.5-13.5 [facility] Comment on above: Performed By: #### R PRQ #### [facility] [address] [place] [address] Dr. Valerio Alexis PLT 192 103/ul Normal 150-450 [facility] Comment on above: Performed By: #### R PRQ #### [facility] [address] [place] [address] Dr. Valerio Alexis RBC 4.45 106/ul Normal 4.20-5.40 [facility] Comment on above: Performed By: #### R PRQ #### [facility] [address] [place] [address] Dr. Valerio Alexis WBC 8.2 103/ul Normal 4.0-11.0 [facility] Comment on above: Performed By: #### R PRQ #### [facility] [address] [place] [address] Dr. Valerio Alexis GI PANEL (PCR)on 12-27-2022 Adenovirus F 40/41 Not detected Normal NOT DETECTED [facility] Comment on above: Performed By: #### U RCX #### [facility] [address] [place] [address] Dr. Valerio Alexis Astrovirus Not detected Normal NOT DETECTED [facility] Comment on above: Performed By: #### U RCX #### [facility] [address] [place] [address] Dr. Valerio Alexis C. Diff toxin A/B Not detected Normal NOT DETECTED [facility] Comment on above: Performed By: #### U RCX #### [facility] [address] [place] [address] [address] Valerio Alexis Campylobacter Detected Critically abnormal NOT DETECTED [facility] Comment on above: Performed By: #### U RCX #### [facility] [address] [place] [address] [address] Valerio Alexis Cryptosporidium Not detected Normal NOT DETECTED [facility] Comment on above: Performed By: #### U RCX #### [facility] [address] [place] [address] [address] Valerio Alexis Cyclos. Cayetanensis Not detected Normal NOT DETECTED [facility] Comment on above: Performed By: #### U RCX #### [facility] [address] [place] [address] [address] Valerio Alexis E. Coli O157 Not Applicable Normal Not Applicable [facility] Comment on above: Performed By: #### U RCX #### [facility] [address] [place] [address] [address] Valerio Alexis E. histolytica Not detected Normal NOT DETECTED [facility] Comment on above: Performed By: #### U RCX #### [facility] [address] [place] [address] [address] Valerio Alexis EAEC Not detected Normal NOT DETECTED [facility] Comment on above: Performed By: #### U RCX #### [facility] [address] [place] [address] [address] Valerio Alexis EIEC Not detected Normal NOT DETECTED [facility] Comment on above: Performed By: #### U RCX #### [facility] [address] [place] [address] Dr. Valerio Alexis EPEC Not detected Normal NOT DETECTED [facility] Comment on above: Performed By: #### U RCX #### [facility] [address] [place] [address] Dr. Valerio Alexis ETEC Not detected Normal NOT DETECTED [facility] Comment on above: Performed By: #### U RCX #### [facility] [address] [place] [address] [address] Valerio Alexis G. Lamblia Not detected Normal NOT DETECTED [facility] Comment on above: Performed By: #### U RCX #### [facility] [address] [place] [address] [address] Valerio UHDSON CONTROLS PASSED Normal [facility] Comment on above: Performed By: #### U RCX #### [facility] [address] [place] [address] [address] Valerio HARRIS EDE HEADER GI PANEL BACTERIA Normal [facility] Comment on above: Performed By: #### U RCX #### [facility] [address] [place] [address] [address] Valerio LÓPEZ ECOLI GI PANEL DIARRHEAGENIC E.COLI / SHIGELLA Normal [facility] Comment on above: Performed By: #### U RCX #### [facility] [address] [place] [address] [address] Valerio LÓPEZ INFO SEE BELOW Normal [facility] Comment on above: Result Comment: EAEC - Enteroaggregative E. Coli EPEC- Enteropathogenic E. Coli ETEC- Enterotoxigenic E. Coli lt/st STEC- Shigella-like toxin-producing E. Coli stx1/stx2 EIEC- Shigella/Enteroinvasive E. Coli Performed By: #### U RCX #### [facility] [address] [place] [address] [address] Valerio LÓPEZ PARASITES GI PANEL PARASITES Normal [facility] Comment on above: Performed By: #### U RCX #### [facility] [address] [place] [address] [address] Valerio LÓPEZ VIRUS GI PANEL VIRUSES Normal [facility] Comment on above: Performed By: #### U RCX #### [facility] [address] [place] [address] [address] Valerio Alexis Norovirus GI/GII Not detected Normal NOT DETECTED [facility] Comment on above: Performed By: #### U RCX #### [facility] [address] [place] [address] [address] Valerio Alexis P. Shigelloides Not detected Normal NOT DETECTED [facility] Comment on above: Performed By: #### U RCX #### [facility] [address] [place] [address] Dr. Valerio Alexis Rotavirus A Not detected Normal NOT DETECTED [facility] Comment on above: Performed By: #### U RCX #### [facility] [address] [place] [address] Dr. Valerio Alexis Salmonella Not detected Normal NOT DETECTED [facility] Comment on above: Performed By: #### U RCX #### [facility] [address] [place] [address] Dr. Valerio Alexis Sapovirus Not detected Normal NOT DETECTED [facility] Comment on above: Performed By: #### U RCX #### [facility] [address] [place] [address] Dr. Valerio Alexis STEC Not detected Normal NOT DETECTED [facility] Comment on above: Performed By: #### U RCX #### [facility] [address] [place] [address] Dr. Valerio Alexis Vibrio Not detected Normal NOT DETECTED [facility] Comment on above: Performed By: #### U RCX #### [facility] [address] [place] [address] Dr. Valerio Alexis Vibrio Cholera Not detected Normal NOT DETECTED [facility] Comment on above: Performed By: #### U RCX #### [facility] [address] [place] [address] Dr. Valerio Alexis Y. Enterocolitica Not detected Normal NOT DETECTED [facility] Comment on above: Performed By: #### U RCX #### [facility] [address] [place] [address] Dr. Valerio Alexis PROF CHEM 8 (BAS METB)on Anion gap [Moles/Vol] 14.7 mmol/L Normal [facility] Comment on above: Performed By: #### R PRQ #### [facility] [address] [place] [address] Dr. Valerio Alexis Calcium [Mass/Vol] 8.8 mg/dL Normal 8.5-10.[address] [facility] Comment on above: Performed By: #### R PRQ #### [facility] [address] [place] [address] [address] Valerio Alexis Chloride [Moles/Vol] 104 mmol/L Normal 98-107 [facility] Comment on above: Performed By: #### R PRQ #### [facility] [address] [place] [address] [address] Valerio Alexis CO2 [Moles/Vol] 23.6 mmol/L Normal 21.0-32.0 [facility] Comment on above: Performed By: #### R PRQ #### [facility] [address] [place] [address] [address] Valerio Alexis Creatinine [Mass/Vol] 0.72 mg/dL Normal 0.55-1.02 [facility] Comment on above: Performed By: #### R PRQ #### [facility] [address] [place] [address] [address] Valerio Alexis EGFR-AF HUNGARIAN >60 Normal >=60 [facility] Comment on above: Performed By: #### R PRQ #### [facility] [address] [place] [address] [address] Valerio Alexis EGFR-NON AF HUNGARIAN >60 Normal >=60 [facility] Comment on above: Performed By: #### R PRQ #### [facility] [address] [place] [address] [address] Valerio Alexis Glucose [Mass/Vol] 77 mg/dL Normal 74-[address] [facility] Comment on above: Performed By: #### R PRQ #### [facility] [address] [place] [address] [address] Valerio Alexis Potassium [Moles/Vol] 3.3 mmol/L Critically low 3.5-5.1 [facility] Comment on above: Performed By: #### R PRQ #### [facility] [address] [place] [address] [address] Valerio Alexis Sodium [Moles/Vol] 139 mmol/L Normal 136-[address] [facility] Comment on above: Performed By: #### R PRQ #### [facility] [address] [place] [address] Dr. Valerio Alexis Urea nitrogen [Mass/Vol] 12.0 mg/dL Normal 7.0-18.0 [facility] Comment on above: Performed By: #### R PRQ #### [facility] [address] [place] [address] Dr. Valerio Alexis Urea nitrogen/Creatinine [Mass ratio] 16.7 mg/mg Normal [facility] Comment on above: Performed By: #### R PRQ #### [facility] [address] [place] [address] Dr. Valerio Alexis CBC AUTO DIFFon 11-19-2022 BASO # 0.0 103/ul Normal 0.0-0.1 [facility] Comment on above: Performed By: #### H IV12 #### [facility] [address] [place] [address] Dr. Valerio Alexis Basophils/100 WBC (Bld) 0.2 % Normal 0.2-2.0 [facility] Comment on above: Performed By: #### H IV12 #### [facility] [address] [place] [address] Dr. Valerio Alexis EO # 0.1 103/ul Normal 0.0-0.7 [facility] Comment on above: Performed By: #### H IV12 #### [facility] [address] [place] [address] Dr. Valerio Alexis Eosinophils/100 WBC (Bld) 1.7 % Normal 0.9-7.0 [facility] Comment on above: Performed By: #### H IV12 #### [facility] [address] [place] [address] Dr. Valerio Alexis Erythrocyte distribution width (RBC) [Ratio] 13.4 % Normal 11.0-15.0 [facility] Comment on above: Performed By: #### H IV12 #### [facility] [address] [place] [address] Dr. Valerio Alexis Hematocrit (Bld) [Volume fraction] 38.0 % Normal 36.0-48.0 [facility] Comment on above: Performed By: #### H IV12 #### [facility] [address] [address] [address] Valerio Alexis Hemoglobin (Bld) [Mass/Vol] 12.5 g/dL Normal 12.0-16.0 [facility] Comment on above: Performed By: #### H IV12 #### [facility] [address] [place] [address] Dr. Valerio Alexis IG # 0.02 10e3/ul Normal 0.00-0.03 [facility] Comment on above: Performed By: #### H IV12 #### [facility] [address] [place] [address] Dr. Valerio Alexis IG % 0.3 % Normal 0.0-0.5 [facility] Comment on above: Performed By: #### H IV12 #### [facility] [address] [place] [address] Dr. Valerio Alexis LYMPH # 1.7 103/ul Normal 1.2-3.8 [facility] Comment on above: Performed By: #### H IV12 #### [facility] [address] [place] [address] Dr. Valerio Alexis Lymphocytes/100 WBC (Bld) 25.9 % Normal 20.5-60.0 [facility] Comment on above: Performed By: #### H IV12 #### [facility] [address] [place] [address] Dr. Valerio Alexis MANUAL DIFF REQ NO Normal [facility] Comment on above: Performed By: #### H IV12 #### [facility] [address] [place] [address] Dr. Valerio Alexis MCH (RBC) [Entitic mass] 26.3 pg Critically low 26.7-34.0 [facility] Comment on above: Performed By: #### H IV12 #### [facility] [address] [place] [address] Dr. Valerio Alexis MCHC (RBC) [Mass/Vol] 32.9 g/dL Normal 29.9-35.2 [facility] Comment on above: Performed By: #### H IV12 #### [facility] [address] [place] [address] Dr. Valerio Alexis MCV (RBC) [Entitic vol] 80.0 fL Critically low 81.0-99.0 [facility] Comment on above: Performed By: #### H IV12 #### [facility] [address] [place] [address] Dr. Valerio Alexis MONO # 0.6 103/ul Normal 0.3-0.8 [facility] Comment on above: Performed By: #### H IV12 #### [facility] [address] [place] [address] Dr. Valerio Alexis Monocytes/100 WBC (Bld) 9.2 % Normal 1.7-12.0 [facility] Comment on above: Performed By: #### H IV12 #### [facility] [address] [place] [address] Dr. Valerio Alexis NEUT # 4.1 103/ul Normal 1.4-6.5 [facility] Comment on above: Performed By: #### H IV12 #### [facility] [address] [place] [address] Dr. Valerio Alexis Neutrophils/100 WBC (Bld) 62.7 % Normal 43.0-75.0 [facility] Comment on above: Performed By: #### H IV12 #### [facility] [address] [place] [address] Dr. Valerio Alexis Platelet mean volume (Bld) [Entitic vol] 10.4 fL Normal 9.5-13.5 [facility] Comment on above: Performed By: #### H IV12 #### [facility] [address] [place] [address] Dr. Valerio Alexis PLT 254 103/ul Normal 150-450 [facility] Comment on above: Performed By: #### H IV12 #### [facility] [address] [place] [address] Dr. Valerio Alexis RBC 4.75 106/ul Normal 4.20-5.40 [facility] Comment on above: Performed By: #### H IV12 #### [facility] [address] [address] [address] Valerio Alexis WBC 6.5 103/ul Normal 4.0-11.0 [facility] Comment on above: Performed By: #### H IV12 #### [facility] [address] [address] [address] ABD/PELVIS WO CONon [...] MAHAD OLIVEROS Date: 2022-11-19 00:58 Normal [facility] ER URINE PROFILEon 3 Bilirubin Ql (U) Negative Normal NEGATIVE [facility] Comment on above: Performed By: #### H H #### [facility] [address] [address] [address] Valerio Alexis Clarity (U) CLEAR Normal CLEAR [facility] Comment on above: Performed By: #### H H #### [facility] [address] [place] [address] Dr. Valerio Alexis Color (U) LT. YELLOW Normal YELLOW [facility] Comment on above: Performed By: #### H H #### [facility] [address] [address] [address] Valerio DAVISON A micrscopic examination will be performed if indicated. Normal [facility] Comment on above: Performed By: #### H H #### [facility] [address] [place] [address] Dr. Valreio Alexis Glucose Ql (U) Negative Normal NEGATIVE [facility] Comment on above: Performed By: #### H H #### [facility] [address] [place] [address] Dr. Valerio Alexis Hemoglobin Ql (U) Negative Normal NEGATIVE [facility] Comment on above: Performed By: #### H H #### [facility] [address] [place] [address] Dr. Valerio Alexis Ketones Ql (U) Negative Normal NEGATIVE [facility] Comment on above: Performed By: #### H H #### [facility] [address] [place] [address] Dr. Valerio Alexis LEUKOCYTES Negative Normal NEGATIVE [facility] Comment on above: Performed By: #### H H #### [facility] [address] [place] [address] Dr. Valerio Alexis Nitrite Ql (U) Negative Normal NEGATIVE [facility] Comment on above: Performed By: #### H H #### [facility] [address] [place] [address] Dr. Valerio Alexis pH (U) 6.0 [pH] Normal 5-9 [facility] Comment on above: Performed By: #### H H #### [facility] [address] [place] [address] Dr. Valerio Alexis SPEC GRAVITY 1.010 Normal 1.005-<=1.025 [facility] Comment on above: Performed By: #### H H #### [facility] [address] [place] [address] Dr. Valerio Alexis UA PROTEIN Negative Normal NEGATIVE/ TRACE [facility] Comment on above: Performed By: #### H H #### [facility] [address] [place] [address] Dr. Valerio Alexis UR MICRO IND NOT INDICATED Normal [facility] Comment on above: Performed By: #### H H #### [facility] [address] [address] [address] Valerio Alexis Urobilinogen Qn (U) 0.2 {Nicolas'U}/dL Normal 0.2 - 1. 0 [facility] Comment on above: Performed By: #### H H #### [facility] [address] [place] [address] Dr. Valerio Alexis PROF CHEM 8 (BAS METB)on Anion gap [Moles/Vol] 12.1 mmol/L Normal [facility] Comment on above: Performed By: #### H H #### [facility] [address] [place] [address] Dr. Valerio Alexis Calcium [Mass/Vol] 9.2 mg/dL Normal 8.5-10.1 [facility] Comment on above: Performed By: #### H H #### [facility] [address] [place] [address] Dr. Valerio Alexis Chloride [Moles/Vol] 104 mmol/L Normal 98-107 [facility] Comment on above: Performed By: #### H H #### [facility] [address] [place] [address] Dr. Valerio Alexis CO2 [Moles/Vol] 27.0 mmol/L Normal 21.0-32.0 [facility] Comment on above: Performed By: #### H H #### [facility] [address] [place] [address] Dr. Valerio Alexis Creatinine [Mass/Vol] 0.75 mg/dL Normal 0.55-1.02 [facility] Comment on above: Performed By: #### H H #### [facility] [address] [place] [address] Dr. Valerio Alexis EGFR-AF HUNGARIAN >60 Normal >=60 [facility] Comment on above: Performed By: #### H H #### [facility] [address] [place] [address] Dr. Valerio Alexis EGFR-NON AF HUNGARIAN >60 Normal >=60 [facility] Comment on above: Performed By: #### H H #### [facility] [address] [address] [address] Valerio Alexis Glucose [Mass/Vol] 83 mg/dL Normal 74-106 [facility] Comment on above: Performed By: #### H H #### [facility] [address] [place] [address] Dr. Valerio Alexis Potassium [Moles/Vol] 4.1 mmol/L Normal 3.5-5.1 [facility] Comment on above: Performed By: #### H H #### [facility] [address] [place] [address] Dr. Valerio Alexis Sodium [Moles/Vol] 139 mmol/L Normal 136-145 [facility] Comment on above: Performed By: #### H H #### [facility] [address] [place] [address] Dr. Valerio Alexis Urea nitrogen [Mass/Vol] 16.0 mg/dL Normal 7.0-18.0 [facility] Comment on above: Performed By: #### H H #### [facility] [address] [place] [address] Dr. Valerio Alexis Urea nitrogen/Creatinine [Mass ratio] 21.3 mg/mg Normal [facility] Comment on above: Performed By: #### H H #### [facility] [address] [place] [address] Dr. Valerio Alexis CHLAMYDIA/GONOCOCCUS CHULA ( AB/URINE/PAPon 10-27-2022 Chlamydia trachomatis, CHULA Negative Normal Negative [facility] Comment on above: Performed By: #### N BOX #### [facility] [address] [place] [address] Dr. Valerio Alexis Neisseria gonorrhoeae, CHULA Negative Normal Negative [facility] Comment on above: Performed By: #### N BOX #### [facility] [address] [place] [address] Dr. Valerio Alexis VAGINITIS/VAGINOSIS DNA PROB Dane 10-26-2022 Ashley species Negative Normal Negative [facility] Comment on above: Performed By: #### R PRQ #### [facility] [address] [place] [address] Dr. Valerio Alexis Gardnerella vaginalis Positive Abnormal Negative [facility] Comment on above: Performed By: #### R PRQ #### [facility] [address] [place] [address] Dr. Valerio Alexis Trichomonas vaginalis Negative Normal Negative [facility] Comment on above: Performed By: #### R PRQ #### [facility] [address] [place] [address] Dr. Valerio Alexis MICRO OTHER TESTSOrdered By: Cesar Riggs on 09-27-2022 S. pyogenes Ag IA.rapid Ql (Throat) Negative (09/27/22 11:23 PM) Normal Negative [facility] Man Sero CBC AUTO DIFFon 08-25-2022 BASO # 0.0 103/ul Normal 0.0-0.1 [facility] Comment on above: Performed By: #### R PRQ #### [facility] [address] [place] [address] Dr. Valerio Alexis Basophils/100 WBC (Bld) 0.3 % Normal 0.2-2.0 [facility] Comment on above: Performed By: #### R PRQ #### [facility] [address] [place] [address] Dr. Valerio Alexis EO # 0.1 103/ul Normal 0.0-0.7 [facility] Comment on above: Performed By: #### R PRQ #### [facility] [address] [place] [address] Dr. Valerio Alexis Eosinophils/100 WBC (Bld) 0.7 % Critically low 0.9-7.0 [facility] Comment on above: Performed By: #### R PRQ #### [facility] [address] [place] [address] Dr. Valerio Alexis Erythrocyte distribution width (RBC) [Ratio] 13.6 % Normal 11.0-15.0 [facility] Comment on above: Performed By: #### R PRQ #### [facility] [address] [place] [address] Dr. Valerio Alexis Hematocrit (Bld) [Volume fraction] 28.2 % Critically low 36.0-48.0 [facility] Comment on above: Performed By: #### R PRQ #### [facility] [address] [place] [address] Dr. Valerio Alexis Hemoglobin (Bld) [Mass/Vol] 9.6 g/dL Critically low 12.0-16.0 [facility] Comment on above: Performed By: #### R PRQ #### [facility] [address] [place] [address] Dr. Valerio Alexis IG # 0.10 10e3/ul Critically high 0.00-0.03 [facility] Comment on above: Performed By: #### R PRQ #### [facility] [address] [place] [address] Dr. Valerio Alexis IG % 0.7 % Critically high 0.0-0.5 [facility] Comment on above: Performed By: #### R PRQ #### [facility] [address] [place] [address] Dr. Valerio Alexis LYMPH # 2.2 103/ul Normal 1.2-3.8 [facility] Comment on above: Performed By: #### R PRQ #### [facility] [address] [place] [address] Dr. Valerio Alexis Lymphocytes/100 WBC (Bld) 16.5 % Critically low 20.5-60.0 [facility] Comment on above: Performed By: #### R PRQ #### [facility] [address] [place] [address] Dr. Valerio Alexis MANUAL DIFF REQ NO Normal [facility] Comment on above: Performed By: #### R PRQ #### [facility] [address] [place] [address] Dr. Valerio Alexis MCH (RBC) [Entitic mass] 27.7 pg Normal 26.7-34.0 [facility] Comment on above: Performed By: #### R PRQ #### [facility] [address] [place] [address] Dr. Valerio Alexis MCHC (RBC) [Mass/Vol] 34.0 g/dL Normal 29.9-35.2 [facility] Comment on above: Performed By: #### R PRQ #### [facility] [address] [address] [address] Valerio Alexis MCV (RBC) [Entitic vol] 81.3 fL Normal 81.0-99.0 [facility] Comment on above: Performed By: #### R PRQ #### [facility] [address] [place] [address] Dr. Valerio Alexis MONO # 1.2 103/ul Critically high 0.3-0.8 [facility] Comment on above: Performed By: #### R PRQ #### [facility] [address] [place] [address] Dr. Valerio Alexis Monocytes/100 WBC (Bld) 8.7 % Normal 1.7-12.0 [facility] Comment on above: Performed By: #### R PRQ #### [facility] [address] [place] [address] Dr. Valerio Alexis NEUT # 9.9 103/ul Critically high 1.4-6.5 [facility] Comment on above: Performed By: #### R PRQ #### [facility] [address] [place] [address] Dr. Valerio Alexis Neutrophils/100 WBC (Bld) 73.1 % Normal 43.0-75.0 [facility] Comment on above: Performed By: #### R PRQ #### [facility] [address] [place] [address] Dr. Valerio Alexis Platelet mean volume (Bld) [Entitic vol] 9.9 fL Normal 9.5-13.5 [facility] Comment on above: Performed By: #### R PRQ #### [facility] [address] [place] [address] Dr. Valerio Alexis PLT 200 103/ul Normal 150-450 [facility] Comment on above: Performed By: #### R PRQ #### [facility] [address] [place] [address] Dr. Valerio Alexis RBC 3.47 106/ul Critically low 4.20-5.40 [facility] Comment on above: Performed By: #### R PRQ #### [facility] [address] [address] [address] Valerio Alexis WBC 13.5 103/ul Critically high 4.0-11.0 [facility] Comment on above: Performed By: #### R PRQ #### [facility] [address] [address] [address] Valerio Alexis CBC AUTO DIFFon 08-24-2022 BASO # 0.0 103/ul Normal 0.0-0.1 [facility] Comment on above: Performed By: #### H H #### [facility] [address] [place] [address] Dr. Valerio Aleixs Basophils/100 WBC (Bld) 0.3 % Normal 0.2-2.0 [facility] Comment on above: Performed By: #### H H #### [facility] [address] [place] [address] Dr. Valerio Alexis EO # 0.1 103/ul Normal 0.0-0.7 [facility] Comment on above: Performed By: #### H H #### [facility] [address] [place] [address] Dr. Valerio Alexis Eosinophils/100 WBC (Bld) 0.5 % Critically low 0.9-7.0 [facility] Comment on above: Performed By: #### H H #### [facility] [address] [place] [address] Dr. Valerio Alexis Erythrocyte distribution width (RBC) [Ratio] 13.2 % Normal 11.0-15.0 [facility] Comment on above: Performed By: #### H H #### [facility] [address] [place] [address] Dr. Valerio Alexis Hematocrit (Bld) [Volume fraction] 32.4 % Critically low 36.0-48.0 [facility] Comment on above: Performed By: #### H H #### [facility] [address] [address] [address] Valerio Alexis Hemoglobin (Bld) [Mass/Vol] 10.9 g/dL Critically low 12.0-16.0 [facility] Comment on above: Performed By: #### H H #### [facility] [address] [address] [address] Valerio Alexis IG # 0.07 10e3/ul Critically high 0.00-0.03 [facility] Comment on above: Performed By: #### H H #### [facility] [address] [place] [address] Dr. Valerio Alexis IG % 0.6 % Critically high 0.0-0.5 [facility] Comment on above: Performed By: #### H H #### [facility] [address] [place] [address] Dr. Valerio Alexis LYMPH # 2.0 103/ul Normal 1.2-3.8 [facility] Comment on above: Performed By: #### H H #### [facility] [address] [place] [address] Dr. Valerio Alexis Lymphocytes/100 WBC (Bld) 18.4 % Critically low 20.5-60.0 [facility] Comment on above: Performed By: #### H H #### [facility] [address] [place] [address] Dr. Valerio Alexis MANUAL DIFF REQ NO Normal [facility] Comment on above: Performed By: #### H H #### [facility] [address] [address] [address] Valerio Alexis MCH (RBC) [Entitic mass] 27.1 pg Normal 26.7-34.0 [facility] Comment on above: Performed By: #### H H #### [facility] [address] [place] [address] Dr. Valerio Alexis MCHC (RBC) [Mass/Vol] 33.6 g/dL Normal 29.9-35.2 [facility] Comment on above: Performed By: #### H H #### [facility] [address] [place] [address] Dr. Valerio Alexis MCV (RBC) [Entitic vol] 80.6 fL Critically low 81.0-99.0 [facility] Comment on above: Performed By: #### H H #### [facility] [address] [place] [address] Dr. Valerio Alexis MONO # 0.9 103/ul Critically high 0.3-0.8 [facility] Comment on above: Performed By: #### H H #### [facility] [address] [place] [address] Dr. Valerio Alexis Monocytes/100 WBC (Bld) 8.5 % Normal 1.7-12.0 [facility] Comment on above: Performed By: #### H H #### [facility] [address] [place] [address] Dr. Valerio Alexis NEUT # 7.7 103/ul Critically high 1.4-6.5 [facility] Comment on above: Performed By: #### H H #### [facility] [address] [place] [address] Dr. Valerio Alexis Neutrophils/100 WBC (Bld) 71.7 % Normal 43.0-75.0 [facility] Comment on above: Performed By: #### H H #### [facility] [address] [place] [address] Dr. Valerio Alexis Platelet mean volume (Bld) [Entitic vol] 9.8 fL Normal 9.5-13.5 [facility] Comment on above: Performed By: #### H H #### [facility] [address] [place] [address] Dr. Valerio Alexis PLT 273 103/ul Normal 150-450 [facility] Comment on above: Performed By: #### H H #### [facility] [address] [place] [address] Dr. Valerio Alexis RBC 4.02 106/ul Critically low 4.20-5.40 [facility] Comment on above: Performed By: #### H H #### [facility] [address] [place] [address] Dr. Valerio Alexis WBC 10.8 103/ul Normal 4.0-11.0 [facility] Comment on above: Performed By: #### H H #### [facility] [address] [address] [address] Valerio Alexis Covid-19 PCR ([facility])on 08-03 SARS-CoV-2 (COVID-19) RNA CHULA+probe Ql (Unsp spec) Not detected Normal NOT DETECTED [facility] Comment on above: Result Comment: When diagnostic [...] for this test is supported by the [employer] and Human Service's declaration that [...] used). Performed By: #### H H #### [facility] [address] [place] [address] Dr. Valerio Alexis DRUG SCREEN RAPID (URINE)on 08-24-2022 AMP Negative Normal NEGATIVE [facility] Comment on above: Performed By: #### H H #### [facility] [address] [address] [address] Valerio Alexis BAR Negative Normal NEGATIVE [facility] Comment on above: Performed By: #### H H #### [facility] [address] [place] [address] Dr. Valerio Alexis BUP Negative Normal NEGATIVE [facility] Comment on above: Performed By: #### H H #### [facility] [address] [address] [address] Valerio Alexis BZO Negative Normal NEGATIVE [facility] Comment on above: Performed By: #### H H #### [facility] [address] [address] [address] Valerio Alexis WENDY Negative Normal NEGATIVE [facility] Comment on above: Performed By: #### H H #### [facility] [address] [address] [address] Valerio Alexis CUT-OFFS SEE BELOW Normal [facility] Comment on above: Result Comment: AMP (Amphetamine): 500ng/mL, BAR (Barbituates): 200 ng/mL, BZO (Benzodiazepines): 150 ng/mL, BUP (Buprenorphine): 10 ng/mL, WENDY (Cocaine): 150 ng/mL, mAMP (Methamphetamine): 500 ng/mL, MTD (Methadone): 200 ng/mL, OPI (Opiates): 100 ng/mL, OXY (Oxycodone): 100 ng/mL, PCP (Phencyclidine): 25 ng/mL, PPX (Propoxyphene): 300 ng/mL, THC (Cannabinoids): 50 ng/mL, TCA (Trycyclic Antidepressants): 300 ng/mL Performed By: #### H H #### [facility] [address] [place] [address] Dr. Valerio Alexis DRUG CUT HEADER DRUG CLASS TEST SYSTEM CUT-OFF CONCENTRATIONS ARE FOLLOWS: Normal [facility] Comment on above: Performed By: #### H H #### [facility] [address] [place] [address] Dr. Valerio Alexis mAMP Negative Normal NEGATIVE [facility] Comment on above: Performed By: #### H H #### [facility] [address] [place] [address] Dr. Valerio Alexis MTD Negative Normal NEGATIVE [facility] Comment on above: Performed By: #### H H #### [facility] [address] [place] [address] Dr. Valerio Alexis OPI Negative Normal NEGATIVE [facility] Comment on above: Performed By: #### H H #### [facility] [address] [place] [address] Dr. Valerio Alexis OXY Negative Normal NEGATIVE [facility] Comment on above: Performed By: #### H H #### [facility] [address] [place] [address] Dr. Valerio Alexis PCP Negative Normal NEGATIVE [facility] Comment on above: Performed By: #### H H #### [facility] [address] [place] [address] Dr. Valerio Alexis PPX Negative Normal NEGATIVE [facility] Comment on above: Performed By: #### H H #### [facility] [address] [address] [address] Valerio Alexis TCA Negative Normal NEGATIVE [facility] Comment on above: Performed By: #### H H #### [facility] [address] [place] [address] Dr. Valerio Alexis THC Negative Normal NEGATIVE [facility] Comment on above: Performed By: #### H H #### [facility] [address] [place] [address] Dr. Valerio Alexis TYPE AND SCREENon 08-24-2022 TYPE AND SCREEN Negative Normal [facility] Comment on above: Performed By: #### T NS #### [facility] [address] [place] [address] Dr. Valerio Alexis US PREG BIOPHY W NON STRESSo n 08-22-2022 US PREG BIOPHY W NON STRESS EXAMINATION: US PREG BIOPHY W NON STRESS HISTORY: [id number] baby COMPARISON: 08/16/2022 TECHNIQUE: Ultrasound biophysical profile was performed in the radiology department. FINDINGS: BREATHING MOVEMENTS: 2.0 GROSS BODY MOVEMENTS: 2.0 TONE: 2.0 QUALITATIVE AMNIOTIC FLUID VOLUME: 2.0 PRESENTATION: Cephalic HEART RATE: 137.8 bpm H.B./min AMNIOTIC FLUID VOLUME: 10.3 cm cm GESTATIONAL AGE: 38 weeks 5 days CONCLUSION: Total biophysical profile score: 8.0 Electronically authenticated by: LEE CLAY Date: 2022-08-22 13:46 Normal [facility] US PREG UMBILICAL ARTERYon 1 10-22-2021 US PREG UMBILICAL ARTERY EXAMINATION: US PREG UMBILICAL ARTERY HISTORY: [id number] baby COMPARISON: No relevant comparison available. TECHNIQUE: [...] by: LEE CLAY Date: 2022-08-22 13:48 Normal [facility] US PREG BIOPHY W NON STRESSo n 08-17-2022 US PREG BIOPHY W NON STRESS EXAMINATION: US PREG BIOPHY W NON STRESS HISTORY: [id number] baby COMPARISON: Ultrasound biophysical 08/15/2022 TECHNIQUE: Ultrasound biophysical profile was performed. FINDINGS: IMPRESSION: BREATHING MOVEMENTS: 2.0 GROSS BODY MOVEMENTS: 2.0 TONE: 2.0 QUALITATIVE AMNIOTIC FLUID VOLUME: 2.0 PRESENTATION: Cephalic HEART RATE: 142.9 bpm bpm. AMNIOTIC FLUID VOLUME: 12.7 cm GESTATIONAL AGE: 37 weeks 6 days CONCLUSION: Total biophysical profile score 8.0. Electronically authenticated by: TEAGAN ENRIQUE Date: 2022-08-17 06:47 Normal [facility] US PREG BIOPHY W NON STRESSo n [...] by: LEE CLAY Date: 2022-08-15 16:37 Normal [facility] US PREG UMBILICAL ARTERYon 1 10-15-2021 US PREG UMBILICAL ARTERY EXAM: US PREG UMBILICAL ARTERY HISTORY: [id number] baby EXAMINATION: US PREG UMBILICAL ARTERY HISTORY: [id number] baby COMPARISON: No relevant comparison available. TECHNIQUE: [...] by: LEE CLAY Date: 2022-08-15 16:55 Normal [facility] US PREG BIOPHY W NON STRESSo n [...] by: LEE CLAY Date: 2022-08-08 16:59 Normal [facility] US PREG UMBILICAL ARTERYon 1 10-08-2021 US PREG UMBILICAL ARTERY EXAM: US PREG UMBILICAL ARTERY HISTORY: [id number] baby COMPARISON: 08/01/2022 TECHNIQUE: Grayscale, color and [...] LEE CLAY Date: 2022-08-08 17:03 Normal [facility] BUNon 08-05-2022 Urea nitrogen [Mass/Vol] 11.0 mg/dL Normal 7.0-18.0 [facility] Comment on above: Performed By: #### N BOX #### [facility] [address] [place] [address] Dr. Valerio Alexis CBC AUTO DIFFon 08-05-2022 BASO # 0.0 103/ul Normal 0.0-0.1 [facility] Comment on above: Performed By: #### N BOX #### [facility] [address] [place] [address] Dr. Valerio Alexis Basophils/100 WBC (Bld) 0.3 % Normal 0.2-2.0 [facility] Comment on above: Performed By: #### N BOX #### [facility] [address] [place] [address] Dr. Valerio Alexis EO # 0.0 103/ul Normal 0.0-0.7 [facility] Comment on above: Performed By: #### N BOX #### [facility] [address] [place] [address] Dr. Valerio Alexis Eosinophils/100 WBC (Bld) 0.3 % Critically low 0.9-7.0 [facility] Comment on above: Performed By: #### N BOX #### [facility] [address] [place] [address] Dr. Valerio Alexis Erythrocyte distribution width (RBC) [Ratio] 12.9 % Normal 11.0-15.0 [facility] Comment on above: Performed By: #### N BOX #### [facility] [address] [place] [address] Dr. Valerio Alexis Hematocrit (Bld) [Volume fraction] 33.3 % Critically low 36.0-48.0 [facility] Comment on above: Performed By: #### N BOX #### [facility] [address] [place] [address] Dr. Valerio Alexis Hemoglobin (Bld) [Mass/Vol] 11.0 g/dL Critically low 12.0-16.0 [facility] Comment on above: Performed By: #### N BOX #### [facility] [address] [address] [address] Valerio Alexis IG # 0.14 10e3/ul Critically high 0.00-0.03 [facility] Comment on above: Performed By: #### N BOX #### [facility] [address] [address] [address] Valerio Alexis IG % 0.9 % Critically high 0.0-0.5 [facility] Comment on above: Performed By: #### N BOX #### [facility] [address] [address] [address] Valerio Alexis LYMPH # 1.4 103/ul Normal 1.2-3.8 [facility] Comment on above: Performed By: #### N BOX #### [facility] [address] [place] [address] Dr. Valerio Alexis Lymphocytes/100 WBC (Bld) 8.8 % Critically low 20.5-60.0 [facility] Comment on above: Performed By: #### N BOX #### [facility] [address] [address] [address] Valerio Alexis MANUAL DIFF REQ NO Normal [facility] Comment on above: Performed By: #### N BOX #### [facility] [address] [place] [address] Dr. Valerio Alexis MCH (RBC) [Entitic mass] 27.8 pg Normal 26.7-34.0 [facility] Comment on above: Performed By: #### N BOX #### [facility] [address] [address] [address] Valerio Alexis MCHC (RBC) [Mass/Vol] 33.0 g/dL Normal 29.9-35.2 [facility] Comment on above: Performed By: #### N BOX #### [facility] [address] [address] [address] Valerio Alexis MCV (RBC) [Entitic vol] 84.3 fL Normal 81.0-99.0 [facility] Comment on above: Performed By: #### N BOX #### [facility] [address] [address] [address] Valerio Alexis MONO # 1.1 103/ul Critically high 0.3-0.8 [facility] Comment on above: Performed By: #### N BOX #### [facility] [address] [address] [address] Valerio Alexis Monocytes/100 WBC (Bld) 7.0 % Normal 1.7-12.0 [facility] Comment on above: Performed By: #### N BOX #### [facility] [address] [address] [address] Valerio Alexis NEUT # 13.1 103/ul Critically high 1.4-6.5 [facility] Comment on above: Performed By: #### N BOX #### [facility] [address] [place] [address] Dr. Valerio Alexis Neutrophils/100 WBC (Bld) 82.7 % Critically high 43.0-75.0 [facility] Comment on above: Performed By: #### N BOX #### [facility] [address] [place] [address] Dr. Valerio Alexis Platelet mean volume (Bld) [Entitic vol] 10.8 fL Normal 9.5-13.5 [facility] Comment on above: Performed By: #### N BOX #### [facility] [address] [place] [address] Dr. Valerio Alexis PLT 202 103/ul Normal 150-450 [facility] Comment on above: Performed By: #### N BOX #### [facility] [address] [address] [address] Valerio Alexis RBC 3.95 106/ul Critically low 4.20-5.40 [facility] Comment on above: Performed By: #### N BOX #### [facility] [address] [place] [address] Dr. Valerio Alexis WBC 15.9 103/ul Critically high 4.0-11.0 [facility] Comment on above: Performed By: #### N BOX #### [facility] [address] [place] [address] Dr. Valerio Alexis CREATININEon 08-05-2022 Creatinine [Mass/Vol] 0.64 mg/dL Normal 0.55-1.02 [facility] Comment on above: Performed By: #### N BOX #### [facility] [address] [place] [address] Dr. Valerio Alexis EGFR-AF HUNGARIAN >60 Normal >=60 [facility] Comment on above: Performed By: #### N BOX #### [facility] [address] [place] [address] Dr. Valerio Alexis EGFR-NON AF HUNGARIAN >60 Normal >=60 [facility] Comment on above: Performed By: #### N BOX #### [facility] [address] [place] [address] Dr. Valerio Alexis CULTURE URINEon 08-05-2022 CULTURE URINE Culture Observations: LIGHT GROWTH OF MIXED GENITAL RICK. NO POTENTIAL PATHOGENS SEEN. Normal [facility] Comment on above: Performed By: #### N BOX #### [facility] [address] [place] [address] Dr. Valerio Alexis UA (CLEAN/CATCH) INTERFACE ENGINEER/MICRO I F IND.on 08-05-2022 Bilirubin Ql (U) Negative Normal NEGATIVE [facility] Comment on above: Performed By: #### N BOX #### [facility] [address] [place] [address] Dr. Valerio Alexis Clarity (U) CLEAR Normal CLEAR [facility] Comment on above: Performed By: #### N BOX #### [facility] [address] [place] [address] Dr. Valerio Alexis Color (U) LT. YELLOW Normal YELLOW [facility] Comment on above: Performed By: #### N BOX #### [facility] [address] [place] [address] Dr. Vaelrio Alexis Glucose Ql (U) Negative Normal NEGATIVE [facility] Comment on above: Performed By: #### N BOX #### [facility] [address] [place] [address] Dr. Valerio Alexis Hemoglobin Ql (U) LARGE Abnormal NEGATIVE [facility] Comment on above: Performed By: #### N BOX #### [facility] [address] [place] [address] Dr. Valerio Alexis Ketones Ql (U) Negative Normal NEGATIVE [facility] Comment on above: Performed By: #### N BOX #### [facility] [address] [place] [address] Dr. Valerio Alexis LEUKOCYTES SMALL Abnormal NEGATIVE [facility] Comment on above: Performed By: #### N BOX #### [facility] [address] [place] [address] Dr. Valerio Alexis Nitrite Ql (U) Positive Abnormal NEGATIVE [facility] Comment on above: Performed By: #### N BOX #### [facility] [address] [place] [address] Dr. Valerio Alexis pH (U) 6.5 [pH] Normal 5-9 [facility] Comment on above: Performed By: #### N BOX #### [facility] [address] [place] [address] Dr. Valerio Alexis SPEC GRAVITY 1.020 Normal 1.005-<=1.025 [facility] Comment on above: Performed By: #### N BOX #### [facility] [address] [place] [address] Dr. Valerio Alexis UA PROTEIN 30 mg/dl Abnormal NEGATIVE/ TRACE [facility] Comment on above: Performed By: #### N BOX #### [facility] [address] [place] [address] Dr. Valerio Alexis UR MICRO IND INDICATED Normal [facility] Comment on above: Performed By: #### N BOX #### [facility] [address] [place] [address] Dr. Valerio Alexis Urobilinogen Qn (U) 0.2 {Nicolas'U}/dL Normal 0.2 - 1. 0 [facility] Comment on above: Performed By: #### N BOX #### [facility] [address] [place] [address] Dr. Valerio Alexis URINE MICROSCOPIC ONLYon BACTERIA TRACE Abnormal NONE SEEN [facility] Comment on above: Performed By: #### N BOX #### [facility] [address] [place] [address] Dr. Valerio Alexis Bacteria identified Cx Nom (U) INDICATED Normal [facility] Comment on above: Performed By: #### N BOX #### [facility] [address] [place] [address] Dr. Valerio Alexis CAST NONE SEEN Normal NONE SEEN [facility] Comment on above: Performed By: #### N BOX #### [facility] [address] [place] [address] Dr. Valerio Alexis Crystals LM Nom (Urine sed) NONE SEEN Normal NONE SEEN [facility] Comment on above: Performed By: #### N BOX #### [facility] [address] [place] [address] Dr. Valerio Alexis Epithelial cells LM Ql (Urine sed) RARE Normal NONE SEEN /RARE [facility] Comment on above: Performed By: #### N BOX #### [facility] [address] [place] [address] Dr. Valerio Alexis MUCOUS NONE SEEN Normal NONE SEEN [facility] Comment on above: Performed By: #### N BOX #### [facility] [address] [place] [address] Dr. Valerio Alexis RBC NONE SEEN Abnormal 0-2 [facility] Comment on above: Performed By: #### N BOX #### [facility] [address] [place] [address] Dr. Valerio Alexis WBC 5-10 Abnormal NONE SEEN [facility] Comment on above: Performed By: #### N BOX #### [facility] [address] [place] [address] Dr. Valerio Alexis GROUP B STREP CULTUREon S. agalactiae Ag Ql (Unsp spec) Culture Observations: NEGATIVE FOR GROUP B STREPTOCOCCUS. Normal [facility] Comment on above: Performed By: #### G BSCX #### [facility] [address] [place] [address] Dr. Valerio Alexis US PREG BIOPHY W [...] by: TEAGAN ENRIQUE Date: 2022-08-02 05:48 Normal [facility] US PREG UMBILICAL ARTERYon 1 10-02-2021 US PREG UMBILICAL ARTERY EXAMINATION: US PREG UMBILICAL ARTERY HISTORY: [id number] baby COMPARISON: Ultrasound umbilical artery 07/28/2022 TECHNIQUE: [...] by: TEAGAN ENRIQUE Date: 2022-08-02 05:54 Normal [facility] US PREG BIOPHYSICAL NO NSTon 07-28-2022 US [...] by: TEAGAN ENRIQUE Date: 2022-07-28 16:40 Normal [facility] US PREG GROWTHon 07-28-2022 US PREG GROWTH [...] 3. Dr. Harding was notified by the senior javascript developer at time of imaging. Electronically authenticated by: TEAGAN ENRIQUE Date: 2022-07-28 16:48 Normal [facility] US PREG UMBILICAL ARTERYon 1 US PREG UMBILICAL [...] by: TEAGAN ENRIQUE Date: 2022-07-28 13:25 Normal [facility] US PREG BIOPHY W NON STRESSo n [...] by: TEAGAN ENRIQUE Date: 2022-07-26 16:06 Normal [facility] US PREG BIOPHY W NON STRESS EXAMINATION: [...] by: LEE CLAY Date: 2022-07-26 07:14 Normal [facility] US PREG BIOPHY W NON STRESSo n [...] by: TEAGAN ENRIQUE Date: 2022-07-19 20:21 Normal [facility] US PREG GROWTHon 07-13-2022 US PREG GROWTH [...] Dr. Harding notified of low weight by senior javascript developer at time of imaging. Electronically authenticated by: TEAGAN ENRIQUE Date: 2022-07-12 22:01 Normal [facility] GLUCOSE - 1HRon 05-31-2022 Glucose [Mass/Vol] 110 mg/dL Critically high 74-[address] [facility] Comment on above: Performed By: #### R PRQ #### [facility] [address] [address] [address] Valerio Alexis HEMOGRAM AND PLATELon 2021 Hematocrit (Bld) [Volume fraction] 31.6 % Critically low 36.0-48.0 [facility] Comment on above: Performed By: #### H H #### [facility] [address] [address] [address] Valerio Alexis Hemoglobin (Bld) [Mass/Vol] 10.7 g/dL Critically low 12.0-16.0 [facility] Comment on above: Performed By: #### H H #### [facility] [address] [address] [address] Valerio Alexis MCH (RBC) [Entitic mass] 29.7 pg Normal 26.7-34.0 [facility] Comment on above: Performed By: #### H H #### [facility] [address] [address] [address] Valerio Alexis MCHC (RBC) [Mass/Vol] 33.9 g/dL Normal 29.9-35.2 [facility] Comment on above: Performed By: #### H H #### [facility] [address] [address] [address] Valerio Alexis MCV (RBC) [Entitic vol] 87.8 fL Normal 81.0-99.0 [facility] Comment on above: Performed By: #### H H #### [facility] [address] [address] [address] Valerio Alexis PLT 179 103/ul Normal 150-450 [facility] Comment on above: Performed By: #### H H #### [facility] [address] [place] [address] Dr. Valerio Alexis RBC 3.60 106/ul Critically low 4.20-5.40 [facility] Comment on above: Performed By: #### H H #### [facility] [address] [address] [address] Valerio Alexis WBC 8.9 103/ul Normal 4.0-11.0 [facility] Comment on above: Performed By: #### H H #### [facility] [address] [place] [address] Dr. Valerio Alexis CHLAMYDIA/GONOCOCCUS CHULA ( AB/URINE/PAPon 05-21-2022 Chlamydia trachomatis, CHULA Negative Normal Negative [facility] Comment on above: Performed By: #### R PRQ #### [facility] [address] [place] [address] Dr. Valerio Alexis Neisseria gonorrhoeae, CHULA Negative Normal Negative [facility] Comment on above: Performed By: #### R PRQ #### [facility] [address] [place] [address] Dr. Valerio Alexis VAGINITIS/VAGINOSIS DNA PROB Dane 05-21-2022 Ashley species Negative Normal Negative [facility] Comment on above: Performed By: #### H IV12 #### [facility] [address] [place] [address] Dr. Valerio Alexis Gardnerella vaginalis Positive Abnormal Negative [facility] Comment on above: Performed By: #### H IV12 #### [facility] [address] [place] [address] Dr. Valerio Alexis Trichomonas vaginalis Negative Normal Negative [facility] Comment on above: Performed By: #### H IV12 #### [facility] [address] [address] [address] Valerio Alexis HEPATITIS PANEL, ACUTEon HBsAg Screen Negative Normal Negative [facility] Comment on above: Performed By: #### R PRQ #### [facility] [address] [place] [address] Dr. Valerio Alexis HCV AB <0.1 Normal 0.0-0.9 [facility] Comment on above: Performed By: #### R PRQ #### [facility] [address] [place] [address] Dr. Valerio Alexis Hep A Ab, IgM Negative Normal Negative [facility] Comment on above: Performed By: #### R PRQ #### [facility] [address] [place] [address] Dr. Valerio Alexis Hep B Core Ab, IgM Negative Normal Negative [facility] Comment on above: Performed By: #### R PRQ #### [facility] [address] [place] [address] Dr. Valerio Alexis Interpretation: Comment Normal [facility] Comment on above: Result Comment: Nega tive Not infected with HCV, unless recent infection is suspected or other evidence exists to indicate HCV infection. Performed By: #### R PRQ #### [facility] [address] [place] [address] Dr. Valerio Alexis HIV 1 AND 2 WITH REFLEXon HIV Screen 4th Generation wRfx Non-Reactive Normal Non Reactive [facility] Comment on above: Result Comment: HIV Negative HIV-1/HIV-2 antibodies and HIV-1 p24 antigen were NOT detected. There is no laboratory evidence of HIV infection. Performed By: #### N BOX #### [facility] [address] [place] [address] Dr. Valerio Alexis RPR QUANTon 05-20-2022 Rapid Plasma Reagin, Quant Non-Reactive Normal NonRea<1:1 [facility] Comment on above: Result Comment: Plea se Note: This test does not meet current guidelines for screening and diagnosis of syphilis. This test is intended for following treatment response in patients being treated for syphilis infection. To screen for syphilis infection, a reflex cascade that includes both RPR and a treponema-specific assay should be utilized, such as Treponema pallidum (Syphilis) Screening [place] (416220) or Rapid Plasma Reagin (RPR) Test With Reflex to Quantitative RPR and Confirmatory Treponema pallidum Antibodies (570444). Performed By: #### R PRQ #### [facility] [address] [address] [address] Valerio Alexis CULTURE URINEon 05-19-2022 CULTURE URINE Culture Observations: HEAVY GROWTH OF MIXED GENITAL RICK. NO POTENTIAL PATHOGENS SEEN. Normal [facility] Comment on above: Performed By: #### U RCX #### [facility] [address] [address] [address] Valerio Alexis CULTURE URINEon 05-18-2022 CULTURE URINE Culture Observations: LIGHT GROWTH OF MIXED GENITAL RICK. NO POTENTIAL PATHOGENS SEEN. Normal [facility] Comment on above: Performed By: #### U RCX #### [facility] [address] [address] [address] Valerio Alexis AFP MATERNAL FOR SPINA BIFID Aon 04-30-2022 AFP MoM 1.13 Normal [facility] Comment on above: Performed By: #### R PRQ #### [facility] [address] [address] [address] Valerio Alexis AFP Value 94.7 ng/mL Normal [facility] Comment on above: Performed By: #### R PRQ #### [facility] [address] [address] [address] Valerio Alexis AFP, Serum for Spina Bifida Report Normal The [facility] Comment on above: Performed By: #### R PRQ #### [facility] [address] [place] [address] Dr. Valerio Alexis Comment Comment Normal [facility] Comment on above: Result Comment: Willa Domínguez, Ph.D., [facility] Director . References: Available Upon Request. . Multiples Of Median Cutoffs For AFP Elevations Cuenca 2.5 Black 2.8 IDD 2.0 Twins 4.5 Abbreviation Definitions IDD - Insulin Dep Diabetes OSBR - Open Spina Bifida Risk . For further inquiries contact [facility] at [phone]. . This test was developed and its performance characteristics determined by [employer]. It has not been cleared or approved by the Food and Drug Administration. Performed By: #### R PRQ #### [facility] [address] [place] [address] Dr. Valerio Georges Age Collection Date 20.9 weeks Normal [facility] Comment on above: Performed By: #### R PRQ #### [facility] [address] [address] [address] Valerio Alexis Gestat, Age Based on JOSE Normal [facility] Comment on above: Result Comment: 08/04 Recalculations are not recommended when gestational dating by LMP and ultrasound are within 10 days. Performed By: #### R PRQ #### [facility] [address] [place] [address] Dr. Valerio Alexis Insulin Dep Diabetes No Normal [facility] Comment on above: Performed By: #### R PRQ #### [facility] [address] [place] [address] Dr. Valerio Alexis Interpretation Comment Normal [facility] Comment on above: Result Comment: Inte rpretation: [...] Customer Services to discuss available options. The [employer] recommends amniocentesis be offered to women age 35 and older. Performed By: #### R PRQ #### [facility] [address] [place] [address] Dr. Valerio Alexis [age] Normal [facility] Comment on above: Performed By: #### R PRQ #### [facility] [address] [place] [address] Dr. Valerio Alexis Multiple Gestation No Normal [facility] Comment on above: Performed By: #### R PRQ #### [facility] [address] [address] [address] Valerio Alexis OSBR Risk 1 [place] 8106 Normal [facility] Comment on above: Performed By: #### R PRQ #### [facility] [address] [address] [address] Valerio Alexis PDF . [facility] Comment on above: Performed By: #### R PRQ #### [facility] [address] [address] [address] Valerio Alexis Race Normal [facility] Comment on above: Performed By: #### R PRQ #### [facility] [address] [address] [address] Valerio Alexis Test Results: Negative [facility] Comment on above: Performed By: #### R PRQ #### [facility] [address] [address] [address] Valerio Alexis US PREG ANATOMY SINGLEon [...] TEAGAN ENRIQUE Date: 2022-04-20 20:07 Normal [facility] CHLAMYDIA/GONOCOCCUS CHULA (SW AB/URINE/PAPon 03-26-2022 Chlamydia trachomatis, CHULA Negative Normal Negative [facility] Comment on above: Performed By: #### R PRQ #### [facility] [address] [place] [address] Dr. Valerio Alexis Neisseria gonorrhoeae, CHULA Negative Normal Negative [facility] Comment on above: Performed By: #### R PRQ #### [facility] [address] [place] [address] Dr. Valerio Alexis VAGINITIS/VAGINOSIS DNA PROB Dane 03-25-2022 Ashley species Positive Abnormal Negative [facility] Comment on above: Performed By: #### R PRQ #### [facility] [address] [place] [address] Dr. Valerio Alexis Gardnerella vaginalis Positive Abnormal Negative [facility] Comment on above: Performed By: #### R PRQ #### [facility] [address] [place] [address] Dr. Valerio Alxeis Trichomonas vaginalis Negative Normal Negative [facility] Comment on above: Performed By: #### R PRQ #### [facility] [address] [place] [address] Dr. Valerio Alexis Covid-19 PCR (CVDTB)on 01-31 SARS-CoV-2 (COVID-19) RNA CHULA+probe Ql (Unsp spec) Detected Critically abnormal NOT DETECTED [facility] Comment on above: Result Comment: This test is not yet approved or cleared by the [place] FDA. When there are no FDA-approved or cleared tests available, and other criteria are met, FDA can make tests available under an emergency access mechanism called an Emergency Use Authorization (EUA). The EUA for this test is supported by the [employer] of Health and Human Service's declaration that [...] longer be used). Performed By: #### C VDTB #### [facility] [address] [place] [address] Dr. Valerio Alexis US PREG TVon 02-16-2022 [...] TEAGAN ENRIQUE Date: 2022-02-16 13:14 Normal [facility] CHEMISTRYOrdered By: Roberto Garsia on 02-15-2022 HCG.beta subunit Qn [id number] m[IU]/mL High 1 - 3 mIU/m L [facility] Chem S HEP B SURFACE ANTIGEN SCREEN on 02-12-2022 HBsAg Screen Negative Normal Negative [facility] Comment on above: Performed By: #### H H #### [facility] [address] [place] [address] Dr. Valerio Alexis HEPATITIS C VIRUS AB W/ REFL EX QUANTon 02-12-2022 HCV AB 0.1 s/co ratio Normal 0.0-0.9 [facility] Comment on above: Performed By: #### H H #### [facility] [address] [place] [address] Dr. Valerio Alexis Interpretation: Comment Normal [facility] Comment on above: Result Comment: Nega tive Not infected with HCV, unless recent infection is suspected or other evidence exists to indicate HCV infection. Performed By: #### H H #### [facility] [address] [address] [address] Valerio Alexis HIV 1 AND 2 WITH REFLEXon HIV Screen 4th Generation wRfx Non-Reactive Normal Non Reactive [facility] Comment on above: Result Comment: HIV Negative HIV-1/HIV-2 antibodies and HIV-1 p24 antigen were NOT detected. There is no laboratory evidence of HIV infection. Performed By: #### H IV12 #### [facility] [address] [place] [address] Dr. Valerio Alexis RPR QUANTon 02-12-2022 Rapid Plasma Reagin, Quant Non-Reactive Normal NonRea<1:1 [facility] Comment on above: Result Comment: Plea se Note: This test does not meet current guidelines for screening and diagnosis of syphilis. This test is intended for following treatment response in patients being treated for syphilis infection. To screen for syphilis infection, a reflex cascade that includes both RPR and a treponema-specific assay should be utilized, such as Treponema pallidum (Syphilis) Screening [place] (676715) or Rapid Plasma Reagin (RPR) Test With Reflex to Quantitative RPR and Confirmatory Treponema pallidum Antibodies (070180). Performed By: #### U RCX #### [facility] [address] [place] [address] Dr. Valerio Alexis RUBELLA AB IGGon 02-12-2022 Rubella Antibodies, IgG 1.88 index Normal Immune >0.99 [facility] Comment on above: Result Comment: Non- immune <0.90 Equivocal 0.90 - 0.99 Immune >0.99 Performed By: #### H H #### [facility] [address] [place] [address] Dr. Valerio Alexis CBC AUTO DIFFon 02-11-2022 BASO # 0.0 103/ul Normal 0.0-0.1 [facility] Comment on above: Performed By: #### H H #### [facility] [address] [address] [address] Valerio Alexis Basophils/100 WBC (Bld) 0.3 % Normal 0.2-2.0 [facility] Comment on above: Performed By: #### H H #### [facility] [address] [address] [address] Valerio Alexis EO # 0.1 103/ul Normal 0.0-0.7 [facility] Comment on above: Performed By: #### H H #### [facility] [address] [address] [address] Valerio Alexis Eosinophils/100 WBC (Bld) 0.9 % Normal 0.9-7.0 [facility] Comment on above: Performed By: #### H H #### [facility] [address] [address] [address] Valerio Alexis Erythrocyte distribution width (RBC) [Ratio] 12.8 % Normal 11.0-15.0 [facility] Comment on above: Performed By: #### H H #### [facility] [address] [address] [address] Valerio Alexis Hematocrit (Bld) [Volume fraction] 37.6 % Normal 36.0-48.0 [facility] Comment on above: Performed By: #### H H #### [facility] [address] [address] [address] Valerio Alexis Hemoglobin (Bld) [Mass/Vol] 12.5 g/dL Normal 12.0-16.0 [facility] Comment on above: Performed By: #### H H #### [facility] [address] [address] [address] Valerio Alexis IG # 0.04 10e3/ul Critically high 0.00-0.03 [facility] Comment on above: Performed By: #### H H #### [facility] [address] [address] [address] Valerio Alexis IG % 0.6 % Critically high 0.0-0.5 [facility] Comment on above: Performed By: #### H H #### [facility] [address] [place] [address] Dr. Valerio Alexis LYMPH # 1.5 103/ul Normal 1.2-3.8 [facility] Comment on above: Performed By: #### H H #### [facility] [address] [place] [address] Dr. Valerio Alexis Lymphocytes/100 WBC (Bld) 21.9 % Normal 20.5-60.0 [facility] Comment on above: Performed By: #### H H #### [facility] [address] [place] [address] Dr. Valerio Alexis MANUAL DIFF REQ NO Normal [facility] Comment on above: Performed By: #### H H #### [facility] [address] [place] [address] Dr. Valerio Alexis MCH (RBC) [Entitic mass] 29.0 pg Normal 26.7-34.0 [facility] Comment on above: Performed By: #### H H #### [facility] [address] [place] [address] Dr. Valerio Alexis MCHC (RBC) [Mass/Vol] 33.2 g/dL Normal 29.9-35.2 [facility] Comment on above: Performed By: #### H H #### [facility] [address] [place] [address] Dr. Valerio Alexis MCV (RBC) [Entitic vol] 87.2 fL Normal 81.0-99.0 [facility] Comment on above: Performed By: #### H H #### [facility] [address] [place] [address] Dr. Valerio Alexis MONO # 0.5 103/ul Normal 0.3-0.8 [facility] Comment on above: Performed By: #### H H #### [facility] [address] [place] [address] Dr. Valerio Alexis Monocytes/100 WBC (Bld) 6.7 % Normal 1.7-12.0 [facility] Comment on above: Performed By: #### H H #### [facility] [address] [place] [address] Dr. Valerio Alexis NEUT # 4.9 103/ul Normal 1.4-6.5 [facility] Comment on above: Performed By: #### H H #### [facility] [address] [address] [address] Valerio Alexis Neutrophils/100 WBC (Bld) 69.6 % Normal 43.0-75.0 [facility] Comment on above: Performed By: #### H H #### [facility] [address] [place] [address] Dr. Valerio Alexis Platelet mean volume (Bld) [Entitic vol] 10.8 fL Normal 9.5-13.5 [facility] Comment on above: Performed By: #### H H #### [facility] [address] [place] [address] Dr. Valerio Alexis PLT 183 103/ul Normal 150-450 [facility] Comment on above: Performed By: #### H H #### [facility] [address] [place] [address] Dr. Valerio Alexis RBC 4.31 106/ul Normal 4.20-5.40 [facility] Comment on above: Performed By: #### H H #### [facility] [address] [place] [address] Dr. Valerio Alexis WBC 7.0 103/ul Normal 4.0-11.0 [facility] Comment on above: Performed By: #### H H #### [facility] [address] [place] [address] Dr. Valerio Alexis CULTURE URINEon 02-11-2022 CULTURE URINE Culture Observations: NO GROWTH. Normal [facility] Comment on above: Performed By: #### U RCX #### [facility] [address] [place] [address] Dr. Valerio Alexis GLYCOHEMOGLOBIN A1Con 2021 ADA RECOMMENDATION SEE BELOW Normal [facility] Comment on above: Result Comment: ADA RECOMMENDED LIMIT 4.0 - 6.0 ADA THERAPEUTIC TARGET < 7.0 ACTION SUGGESTED > 7.0 Performed By: #### H H #### [facility] [address] [address] [address] Valerio Alexis Glucose [Mass/Vol] 88 mg/dL Normal [facility] Comment on above: Performed By: #### H H #### [facility] [address] [address] [address] Valerio Alexis HbA1c (Bld) [Mass fraction] 4.7 % Normal 4.5-6.2 [facility] Comment on above: Performed By: #### H H #### [facility] [address] [address] [address] Valerio Alexis ASTER BOX TEST PT SEND OUTo n 02-11-2022 SENT TO REF LAB 02/11/2022 Normal [facility] Comment on above: Performed By: #### N BOX #### [facility] [address] [place] [address] Dr. Valerio Alexis TYPE AND SCREENon 02-11-2022 TYPE AND SCREEN Negative Normal [facility] Comment on above: Performed By: #### N BOX #### [facility] [address] [place] [address] Dr. Valerio Alexis US PREG TVon 01-26-2022 [...] by: TEAGAN ENRIQUE Date: 2022-01-26 09:46 Normal [facility] PROGRESSon 11-20-2019 PROGRESS HNO ID: [id number] Author: Jose Luis Quispe Service: ? Author Type: BUDGET ACCOUNTANT Type: Progress Notes Filed: 11/20/2019 4:36 PM [...] Return as needed or if symptoms increase. Jose Luis Quispe, OD I have confirmed and edited [...] with all of its relevant components. Normal [facility] TSHon 06-11-2018 Thyrotropin Qn 3.104 uIU/mL Normal 0.350-5.500 [facility] Comment on above: Performed By: #### T SH ####[facility] [address] [phone] Comp Metabolic Panelon 06-09 Albumin mass conc 4.6 g/dL High 3.2-4.5 [facility] Comment on above: Performed By: #### C MP ####[facility] [address] [phone] ALP enzyme act/vol 75 U/L Normal 47-119 [facility] Comment on above: Performed By: #### C MP ####[address] [phone] ALT enzyme act/vol 11 U/L Normal 0-31 [facility] Comment on above: Performed By: #### C MP ####[address] [phone] AST enzyme act/vol 14 U/L Normal 0-31 [facility] Comment on above: Performed By: #### C MP ####[address] [phone] Bili,Total 0.8 mg/dl Normal 0.0-1.0 [facility] Comment on above: Result Comment: Gama ature : 1 Day 1.0-6.0 mg/dl 2 Day 6.0-8.0 mg/dl 3-5 Day 10.0-15.0 mg/dl Performed By: #### C MP ####[address] [phone] Calcium mass conc 9.8 mg/dL Normal 7.6-11.0 [facility] Comment on above: Performed By: #### C MP ####[address] [phone] Chloride molar conc 105 mmol/L Normal 96-108 [facility] Comment on above: Performed By: #### C MP ####[address] [phone] CO2 molar conc 26.2 mmol/L Normal 22.0-29.0 [facility] Comment on above: Performed By: #### C MP ####[address] [phone] Creatinine mass conc 0.82 mg/dL Normal 0.50-1.00 [facility] Comment on above: Result Comment: Gama ature 0.3-1.0 mg/dL Performed By: #### C MP ####[address] [phone] Glucose mass conc 89 mg/dL Normal 70-99 [facility] Comment on above: Result Comment: Henry simental for Diagnosis of Diabetes(Effective 03/07/11):Fasting specimen (no caloric intake for at least 8 hours). <100 mg/dl Normal 100-125 mg/dl Increased Risk for Diabetes >125 mg/dl Diagnostic for DiabetesRandom Glucose (any time of day without regard to last meal). >=200 mg/dl plus Classic Symptoms of Diabetes Performed By: #### C MP ####[address] [phone] Potassium molar conc 3.8 mmol/L Normal 3.3-5.1 [facility] Comment on above: Performed By: #### C MP ####[address] [phone] Protein mass conc 8.1 g/dL Normal 5.9-8.4 [facility] Comment on above: Performed By: #### C MP ####[address] [phone] Sodium molar conc 138 mmol/L Normal 133-145 [facility] Comment on above: Performed By: #### C MP ####[address] [phone] Urea nitrogen mass conc 10 mg/dL Normal 4-19 [facility] Comment on above: Performed By: #### C MP ####[address] [phone] Complete Blood Counton 06-09 Differential Complete Manual Normal [facility] Comment on above: Performed By: #### C BC ####[address] [phone] Erythrocyte distribution width Auto Ratio (RBC) 12.7 % Normal 0.0-14.4 [facility] Comment on above: Performed By: #### C BC ####[address] [phone] Hematocrit Auto Volume Fraction (Bld) 45.1 % Normal 37.0-46.0 [facility] Comment on above: Performed By: #### C BC ####[address] [phone] Hemoglobin mass conc (Bld) 15.2 g/dL High 12.0-15.0 [facility] Comment on above: Performed By: #### C BC ####[address] [phone] Immature granulocytes/100 WBC (Bld) 0.30 % Normal [facility] Comment on above: Result Comment: Sherice ture Granulocyte Percent includes promyelocytes, myelocytes,and metamyelocytes. IG% > 1.0 indicates a left shift ispresent. With automated differentials, bands are includedin the neutrophil count and not in the Immature GranulocytePercent. Performed By: #### C BC ####[address] [phone] MCH Auto Entitic mass (RBC) 29.2 pg Normal 25.0-35.0 [facility] Comment on above: Performed By: #### C BC ####[address] [phone] MCHC Auto mass conc (RBC) 33.7 % Normal 31.0-37.0 [facility] Comment on above: Performed By: #### C BC ####[address] [phone] MCV Auto Entitic volume (RBC) 86.6 fL Normal 78.0-96.0 [facility] Comment on above: Performed By: #### C BC ####[address] [phone] Nucleated RBC/100 WBC Ratio (Bld) 0.0 % Normal -1.0-0.0 [facility] Comment on above: Performed By: #### C BC ####[address] [phone] Platelet mean volume Auto Entitic volume (Bld) 10.5 fL Normal [facility] Comment on above: Result Comment: MPV is plateletrange and agedependent Performed By: #### C BC ####[address] [phone] Platelets Auto #/vol (Bld) 200 10*3/uL Normal 150-450 [facility] Comment on above: Performed By: #### C BC ####[address] [phone] RBC Auto #/vol (Bld) 5.21 10E12/L High 4.10-4.80 [facility] Comment on above: Performed By: #### C BC ####[address] [phone] WBC Auto #/vol (Bld) 9.0 10*3/uL Normal 4.5-13.0 [facility] Comment on above: Performed By: #### C BC ####[address] [phone] Manual Differentialon 2017 Absolute Neutrophil No. 6.6 Normal [facility] Comment on above: Performed By: #### M DIFF ####[address] [phone] Atypical Lymphocytes 7 % Normal 0-8 [facility] Comment on above: Performed By: #### M DIFF ####[address] [phone] Band Neutrophils 0 % Low 5-11 [facility] Comment on above: Performed By: #### M DIFF ####[address] [place] [phone] Cell Morphology Normal Normal [facility] Comment on above: Performed By: #### M DIFF ####[address] [phone] Lymphocytes 18 % Low 25-45 [facility] Comment on above: Performed By: #### M DIFF ####[address] [phone] Metamyelocytes 0 % Normal 0-0 [facility] Comment on above: Performed By: #### M DIFF ####[address] [phone] Monocytes 2 % Low 3-6 [facility] Comment on above: Performed By: #### M DIFF ####[address] [phone] Myelocytes 0 % Normal 0-0 [facility] Comment on above: Performed By: #### M DIFF ####[address] [phone] Promyelocytes 0 % Normal 0-0 [facility] Comment on above: Performed By: #### M DIFF ####[address] [phone] Segmented Neutrophils 73 % High 34-64 [facility] Comment on above: Performed By: #### M DIFF ####[address] [phone] eGFRon 06-09-2018 GFR/1.73 sq M.predicted MDRD vol rate/area 79.58 Normal [facility] Comment on above: Result Comment: Refe rence range:> 3 months:>90 ml/min/1.73m^2Ref. Range change /26/2018 Performed By: #### E GFR ####[address] [place] [phone] Vital Signs Date Time Vital Sign Value Performing Clinician Facility 07-03-2024 14:00-0400 Body mass index (BMI) [Ratio] 21.95 kg/m2 Renata MCNULTY Work Phone: [facility] 07-03-2024 14:00-0400 Body weight 54.43 kg Renata Dubose PA Work Phone: [facility] 07-03-2024 14:00-0400 Diastolic blood pressure 66 mm[Hg] Renata Dubose PA Work Phone: [facility] 07-03-2024 14:00-0400 Systolic blood pressure 100 mm[Hg] Renata MCNULTY Work Phone: [facility] [employer] 07-20-2023 12:50-0400 Body height 157.48 cm Augusto Andersonaker Other [employer] Other 07-20-2023 12:50-0400 Body mass index (BMI) [Ratio] 18.47 kg/m2 Augusto Andersonaker Other [employer] Other 07-20-2023 12:50-0400 Body temperature 98.2 [degF] Augusto Brewer Other [employer] Other 07-20-2023 12:50-0400 Body weight 45.81 kg Augusto Brewer Other [employer] Other 07-20-2023 12:50-0400 Diastolic blood pressure 63 mm[Hg] Augusto Brewer Other [employer] Other 07-20-2023 12:50-0400 Respiratory rate 17 /min Augusto Brewer Other [employer] Other 07-20-2023 12:50-0400 SaO2% (BldA) [Mass fraction] 98 % Augusto Brewer Other [employer] Other 07-20-2023 12:50-0400 Systolic blood pressure 113 mm[Hg] Augusto Brewer Other [employer] Other 07-17-2023 09:40-0400 Body height 157.48 cm Mel Tomlinson Other [employer] Other 07-17-2023 09:40-0400 Body mass index (BMI) [Ratio] 18.65 kg/m2 Mel Crenshawmond Other [employer] Other 07-17-2023 09:40-0400 Body temperature 98.7 [degF] Mel Crenshawmond Other [employer] Other 07-17-2023 09:40-0400 Body weight 46.27 kg Mel Tomlinson Other [employer] Other 07-17-2023 09:40-0400 Diastolic blood pressure 70 mm[Hg] Mel Bushra Other [employer] Other 07-17-2023 09:40-0400 Respiratory rate 18 /min Mel Bushra Other [employer] Other 07-17-2023 09:40-0400 SaO2% (BldA) [Mass fraction] 98 % Mel Bushra Other [employer] Other 07-17-2023 09:40-0400 Systolic blood pressure 107 mm[Hg] Mel Bushra Other [employer] Other 09-27-2022 22:50-0500 Body temperature 98.24 [degF] [facility] 09-27-2022 22:50-0500 Diastolic blood pressure 81 mm[Hg] Gab[facility] 09-27-2022 22:50-0500 Heart rate 99 /min [facility] 09-27-2022 22:50-0500 Respiratory rate 18 /min [facility] 09-27-2022 22:50-0500 SaO2% (BldA) [Mass fraction] 99 % [facility] 09-27-2022 22:50-0500 Systolic blood pressure 121 mm[Hg] [facility] 04-30-2022 02:06-0400 Body weight 49.[address] NASIR HARDING . [facility] Comment on above: Performed By: #### RPRQ #### [facility] [address] [place] [address] Dr. Valerio Alexis Encounters Encounter Date Encounter Type Care Provider Facility Start: 07-29-2024 End: 07-29-2024 ambulatory NASIR MEHDI Not Available Start: 07-29-2024 End: 07-29-2024 Bamboo flowsheet Nasir Mehdi DO Work Phone: [facility] Start: 07-29-2024 End: 07-29-2024 Bamboo flowsheet Nasir Mehdi DO Work Phone: [facility] Start: 07-03-2024 End: 07-03-2024 Bamboo flowsheet Renata MCNULTY Work Phone: [facility] Start: 07-03-2024 End: 07-11-2024 Bamboo flowsheet Renata MCNULTY Work Phone: [facility] Start: 07-03-2024 End: 07-11-2024 Clinisync Result Encounter Nasir Mehdi DO Work Phone: [facility] Unsolicited Start: 07-03-2024 End: 07-05-2024 External Result Encounter Renata MCNULTY Work Phone: [facility] Unsolicited Start: 07-03-2024 End: 07-03-2024 Office outpatient visit 15 minutes Renata MCNULTY Work Phone: [facility] Comment on above: Diabetes mellitus sc reening; Well woman exam with routine gynecological exam; Heartburn during in second trimester Start: 07-03-2024 End: 07-03-2024 Patient encounter procedure Renata MCNULTY Work Phone: [facility] Start: 07-03-2024 End: 07-03-2024 ambulatory RENATA DUBOSE Not Available Start: 06-05-2024 End: 06-05-2024 ambulatory NASIR MEHDI Not Available Start: 05-09-2024 End: 05-09-2024 ambulatory NASIR MEHDI Not Available Start: 03-11-2024 End: 03-11-2024 Emergency department patient visit NO PCP NO PCP [facility] Start: 11-26-2023 End: 11-27-2023 Emergency department patient visit SLIME ELLER [facility] Start: 07-26-2023 End: 07-26-2023 ambulatory Mel Tomlinson Other [employer] Other Start: 07-26-2023 Telephone encounter Mel Tomlinson [facility] Start: 07-20-2023 End: 07-20-2023 ambulatory Augusto Brewer Other [employer] Other Start: 07-20-2023 Office outpatient vi sit 15 minutes Augusto Brewer [facility] Start: 07-17-2023 Office outpatient ne w 20 minutes Mel Tomlinson [facility] Start: 07-17-2023 End: 07-17-2023 ambulatory Mel Tomlinson Facility:[facility] Start: 07-17-2023 End: 07-17-2023 ambulatory RUSSIAN TEACHER-C Mel Tomlinson Work Phone: [facility] Work Phone: Start: 07-17-2023 End: 07-17-2023 Departed Referred RUSSIAN TEACHER-C Mel Tomlinson Work Phone: [facility] [place] Work Phone: Start: 12-27-2022 End: 12-27-[address] DOCTOR MISC Facility:[facility] Start: 11-19-2022 End: 11-19-[address] DOCTOR MISC Facility:[facility] Start: 10-24-2022 End: 10-24-[address] DOCTOR MISC Facility:[facility] Start: 09-27-2022 End: 09-27-2022 Emergency department patient visit [facility] Start: 08-30-2022 End: 08-30-[address] DOCTOR MISC Facility:[facility] Start: 08-24-2022 End: 08-26-2022 Evaluation and management of inpatient DR DOCTOR MISC Facility:[facility] Start: 08-22-2022 End: 08-22-[address] COLEMAN MACIEL . Facility:[facility] Start: 08-18-2022 End: 08-18-[address] DOCTOR MISC Facility:[facility] Start: 08-16-2022 End: 08-16-[address] COLEMAN MACIEL . Facility:[facility] Start: 08-15-2022 End: 08-15-[address] DOCTOR MISC Facility:[facility] Start: 08-11-2022 End: 08-11-[address] DOCTOR MISC Facility:[facility] Start: 08-08-2022 End: 08-08-[address] DOCTOR MISC Facility:[facility] Start: 08-05-2022 End: 08-05-[address] DOCTOR MISC Facility:[facility] Start: 08-04-2022 End: 08-04-[address] DOCTOR MISC Facility:[facility] Start: 08-04-2022 End: 08-04-[address] NASIR GONZALEZO . Facility:[facility] Start: 08-01-2022 End: 08-01-2022 ambulatory [...] Facility:[facility] Start: 05-18-2022 End: 05-18-[address] NASIR GONZALEZO . Facility:[facility] Start: 05-09-[address] NASIR HARDING . Facili ty:[facility] Start: 04-20-2022 End: 04-21-[address] NASIR HARDING . Facility:[facility] Start: 04-19-2022 End: 04-20-[address] NASIR GONZALEZO . Facility:[facility] Start: 03-24-2022 End: 03-24-[address] NASIR GONZALEZO . Facility:[facility] Start: 02-25-2022 End: 02-25-[address] NASIR HARDING . Facility:[facility] Start: 02-16-2022 End: 02-17-[address] NASIR GONZALEZO . Facility:[facility] Start: 02-15-2022 End: 02-15-2022 Patient encounter procedure [facility] Start: 02-11-2022 End: 02-12-[address] NASIR HARDING . Facility:[facility] Start: 01-26-2022 End: 01-27-[address] NASIR HARDING . Facility: Start: 06-08-2018 End: 06-11-2018 Evaluation and management of inpatient ROSE MARY LUIS [facility] Start: 06-06-2018 End: 06-08-2018 Evaluation and management of inpatient CONOR SANTOYO [facility] Start: 02-22-2018 End: 02-22-2018 Patient encounter MAIRA BOUDREAUX [facility] Procedures Date Procedure Procedure Detail Performing Clinician Start: 07-03-2024 IGP,APTIMA HPV,AGE GDLN Nasir Harding DO Work Phone: Start: 07-03-2024 URETHRITIS/DISCHARGE PLUS VAGINITIS (HTRX) Renata MCNULTY Work Phone: Start: 08-24-2022 Delivery of Products of Conception, External Approach DR NASIR HARDING . Start: 08-24-2022 Drainage of Amniotic Fluid, Therapeutic from Products of Conception, Via Natural or Artificial Opening DR NASIR HARDING . Start: 08-24-2022 Introduction of Othe r Hormone into Peripheral Vein, Percutaneous Approach DR NASIR HARDING . Start: 08-24-2022 Repair Vulva, Pattern Clerk al Approach DR NASIR HARDING . None (qualifier value) Ranjan samson Esqueda Plan of Treatment Date Care Activity Detail Author Start: 07-29-2024 End: 07-29-2024 Patient encounter procedure [facility] Comment on above: Arrived Start: 07-04-2024 End: 07-04-2024 Professional / ancillary services management 07/04/2024 9:00 AM EDT Ancillary Procedure [facility] [address] [place] [id number] [facility] Start: 07-03-2024 End: 07-03-2025 CBC panel - Blood by Automated count CBC Lab Routine Diabetes mellitus screening Expected: 07/03/2024 (Approximate), Expires: 07/03/2025 [facility] Work Phone: Comment on above: Expected: 07/03/2024 (Approximate), Expires: 07/03/2025 Start: 07-03-2024 End: 07-03-2025 Measurement of glucose 1 hour after glucose challenge for glucose tolerance test Glucose tolerance, 1 hour Lab Routine Diabetes mellitus screening Expected: 07/03/2024 (Approximate), Expires: 07/03/2025 [facility] Comment on above: Expected: 07/03/2024 (Approximate), Expires: 07/03/2025 Start: 07-03-2024 End: 07-03-2024 Patient encounter procedure 07/03/2024 1:30 PM EDT Routine [facility] [address] [place] [address] Renata Dubose PA [address] [place] [address] Arrived [facility] Comment on above: Arrived Start: 06-02-2024 Influenza vaccination Influenza Vacc ine (#1) [facility] Start: 07-17-2023 [facility] Atopobium vaginae DN A [Presence] in Vaginal fluid by CHULA with probe detection [facility] Bacterial vaginosis associated bacterium 2 DNA [Presence] in Vaginal fluid by CHULA with probe detection [facility] Cytology Cervical or vaginal smear or scraping study Pap Smear Pathology and Cytology Routine Well woman exam with routine gynecological exam Ordered: 07/03/2024 [facility] Comment on above: Ordered: 07/03/2024 Megasphaera sp type 1 DNA [Presence] in Vaginal fluid by CHULA with probe detection [facility] Immunizations Immunization Date Immunization Notes Care Provider Fa cility 09-17-2018 influenza, injectabl e, quadrivalent, preservative free Renata MCNULTY Work Phone: [facility] 09-17-2018 meningococcal B vaccine, recombinant, OMV, adjuvanted Renata MCNULTY Work Phone: [facility] 09-17-2018 influenza virus vaccine, unspecified formulation Renata MCNULTY Work Phone: [facility] 07-06-2018 meningococcal B vaccine, recombinant, OMV, adjuvanted Renata MCNULTY Work Phone: [facility] 07-06-2018 meningococcal polysaccharide (groups A, C, Y and W-135) diphtheria toxoid conjugate vaccine (MCV4P) Renata MCNULTY Work Phone: [facility] 11-25-2017 influenza, seasonal, injectable [facility] Comment on above: Reason for Medicatio n: Other (see comment) 11-25-2017 influenza, injectabl e, quadrivalent, preservative free Renata MCNULTY Work Phone: [facility] 12-01-2015 hepatitis A vaccine, pediatric/adolescent dosage, 2 dose schedule Renata MCNULTY Work Phone: [facility] 12-01-2015 human papilloma viru s vaccine, quadrivalent Renata MCNULTY Work Phone: [facility] 12-01-2015 influenza virus vaccine, whole virus Renata MCNULTY Work Phone: [facility] 08-04-2015 human papilloma viru s vaccine, quadrivalent Renata MCNULTY Work Phone: [facility] 06-02-2015 hepatitis A vaccine, pediatric/adolescent dosage, 2 dose schedule Renata MCNULTY Work Phone: [facility] 06-02-2015 human papilloma viru s vaccine, quadrivalent Renata MCNULTY Work Phone: [facility] 06-02-2015 meningococcal ACWY vaccine, unspecified formulation Renata MCNULTY Work Phone: [facility] 06-02-2015 tetanus toxoid, redu edi diphtheria toxoid, and acellular pertussis vaccine, adsorbed Renata MCNULTY Work Phone: [facility] 06-01-2007 diphtheria, tetanus toxoids and acellular pertussis vaccine, unspecified formulation Renata MCNULTY Work Phone: [facility] 06-01-2007 measles, mumps, rubella, and varicella virus vaccine Renata MCNULTY Work Phone: [facility] 06-01-2007 poliovirus vaccine, inactivated Renata Vineet PA Work Phone: [facility] 10-24-2003 diphtheria, tetanus toxoids and acellular pertussis vaccine, unspecified formulation Renata Dubose PA Work Phone: [facility] 10-24-2003 poliovirus vaccine, unspecified formulation Renata Vineet PA Work Phone: [facility] 10-10-2003 hepatitis B vaccine, pediatric or pediatric/adolescent dosage Renata Vineet PA Work Phone: [facility] 10-10-2003 measles, mumps and rubella virus vaccine Renata Bronte PA Work Phone: [facility] 10-10-2003 pneumococcal conjuga te vaccine, 7 valent Renata Dubose PA Work Phone: [facility] 04-10-2003 varicella virus vaccine Renata Vineet PA Work Phone: [facility] 2002 diphtheria, tetanus toxoids and acellular pertussis vaccine, unspecified formulation Renata Vineet PA Work Phone: [facility] 2002 pneumococcal conjuga te vaccine, 7 valent Renata Monteiroey PA Work Phone: [facility] 2002 diphtheria, tetanus toxoids and acellular pertussis vaccine, unspecified formulation Renata Vineet PA Work Phone: [facility] 2002 pneumococcal conjuga te vaccine, 7 valent Renata Vineet PA Work Phone: [facility] 2002 poliovirus vaccine, inactivated Renata Monteiroey PA Work Phone: [facility] 2002 diphtheria, tetanus toxoids and acellular pertussis vaccine, unspecified formulation Renata Dubose PA Work Phone: [facility] 2002 hepatitis B vaccine, pediatric or pediatric/adolescent dosage Renata Dubose PA Work Phone: [facility] 2002 pneumococcal conjuga te vaccine, 7 valent Renata Dubose PA Work Phone: [facility] 2002 poliovirus vaccine, inactivated Renata MCNULTY Work Phone: [facility] 2002 diphtheria, tetanus toxoids and acellular pertussis vaccine, unspecified formulation Renata MCNULTY Work Phone: [facility] 2002 pneumococcal conjuga te vaccine, 7 valent Renata MCNULTY Work Phone: [facility] 2002 poliovirus vaccine, unspecified formulation Renata MCNULTY Work Phone: [facility] 2002 hepatitis B vaccine, pediatric or pediatric/adolescent dosage Renata MCNULTY Work Phone: [facility] NEGATED: Highlighted row has not occurred!11-20-2019 influenza virus vaccine, live, attenuated, for intranasal use [facility] Payers Date Payer Category Payer Medicaid [employer] [place] [id number] 2023-Present [address] [place] [address] [id number] 2023 Private Health Insurance [facility] MEDICA[facility] [id number] 2002 Unknown [id number] 2.16.840.1.676831.3.579.2. 593 2002 Unknown [id number] 2.16.840.1.968247.3.579.2. 593 2002 Unknown [id number] 2.16.840.1.763587.3.579.2. 593 2002 Unknown [id number] 2.16.840.1.961266.3.579.2. 593 2002 Unknown [id number] 2.16.840.1.998665.3.579.2. 593 2002 Unknown [id number] 2.16.840.1.616442.3.579.2. 593 2002 Unknown [id number] 2.16.840.1.613994.3.579.2. 593 2002 Unknown [id number] 2.16.840.1.010659.3.579.2. 593 2002 Unknown [id number] 2.16.840.1.901650.3.579.2. 593 2002 Unknown [id number] 2.16.840.1.713744.3.579.2. 593 2002 Unknown [id number] 2.16.840.1.002950.3.579.2. 593 2002 Unknown [id number] 2.16.840.1.985538.3.579.2. 593 2002 Unknown [id number] 2.16.840.1.743908.3.579.2. 593 2002 Unknown [id number] 2.16.840.1.557300.3.579.2. 593 2002 Unknown [id number] 2.16.840.1.342092.3.579.2. 593 2002 Unknown [id number] 2.16.840.1.068698.3.579.2. 593 2002 Unknown [id number] 2.16.840.1.404947.3.579.2. 593 2002 Unknown [id number] 2.16.840.1.182923.3.579.2. 593 2002 Unknown [id number] 2.16.840.1.883876.3.579.2. 593 2002 Unknown [id number] 2.16.840.1.516633.3.579.2. 593 2002 Unknown [id number] 2.16.840.1.801147.3.579.2. 593 2002 Unknown [id number] 2.16.840.1.293701.3.579.2. 593 2002 Unknown [id number] 2.16.840.1.154320.3.579.2. 593 2002 Unknown [id number] 2.16.840.1.131715.3.579.2. 593 2002 Unknown [id number] 2.16.840.1.401980.3.579.2. 593 2002 Unknown [id number] 2.16.840.1.312193.3.579.2. 593 2002 Unknown [id number] 2.16.840.1.053465.3.579.2. 593 2002 Unknown [id number] 2.16.840.1.073398.3.579.2. 593 2002 Unknown [id number] 2.16.840.1.589699.3.579.2. 593 2002 Unknown [id number] 2.16.840.1.440413.3.579.2. 593 2002 Unknown [id number] 2.16.840.1.457569.3.579.2. 593 2002 Unknown [id number] 2.16.840.1.496288.3.579.2. 593 2002 Unknown [id number] 2.16.840.1.253570.3.579.2. 593 2002 Unknown [id number] 2.16.840.1.853359.3.579.2. 1286 2002 Unknown [id number] 2.16.840.1.159992.3.579.2. 1259 2002 Unknown [id number] 2.16.840.1.611798.3.579.2. 1259 2002 Unknown [id number] 2.16.840.1.205436.3.579.2. 1259 2002 Unknown [id number] 2.16.840.1.265666.3.579.2. 1259 1959 Self-pay 1959 Unknown [id number] 1959 Unknown [id number] Unknown [id number] 2.16.840.1.824111.3.579.2. 593 Unknown [id number] 2.16.840.1.379997.3.579.2. 531 Social History Date Type Detail Facility Start: 05-19-2021 Tobacco smoking status Never s moked tobacco (finding) [facility] Comment on above: denies denies denies Tobacco smoking status Never [facility] Comment on above: denies denies denies Start: 06-12-2023 End: 05-09-2024 Sex Assigned At Female [facility] Start: 2002 Sex Assigned At Female F [facility] Start: 05-09-[address] [facility] History of tobacco use Current smoker [facility] History of tobacco use Cigarette Smoker [facility] Start: 05-09-2024 Tobacco use and exposure Smokeless tobacco non-user [facility] Start: 06-05-2024 Alcoholic beverage intake Ex-drinker (finding) [facility] Start: 06-12-2023 End: 06-05-2024 Alcoholic beverage intake [facility] Start: 01-27-2024 [facility] Start: 2002 Sex assigned at Not on file [facility] Goals Date Patient Goal Desired Activity /State Personal health goal Functional Status Date Assessment Result Facility 09-27-2022 Functional Status Yes [facility] Clinical Notes 04-14-2021 to 07-03-2024 HAMLET Underwood - 07/03/2024 1:30 PM EDT Note Date & Type Note Facility 07-03-2024 History of Presen t illness Narrative Reason for Appointment: Patient ID: Tanner Ramirez is a 24 y.o. female who presents for No chief complaint on file. Patient presents today for Annual Exam. MEDICATIONS Current Outpatient Medications Medication Instructions omeprazole (PRILOSEC) 20 mg, Oral, Nightly, Do not crush or chew. ondansetron (ZOFRAN) 4 mg, Oral, Every 6 hours PRN, Take 1 tablet by mouth every 6 hours as needed for nausea. ondansetron ODT (ZOFRAN-ODT) 4 mg, Oral ALLERGIES No Known Allergies PROBLEMS Active Ambulatory Problems Diagnosis Date Noted Acute vaginitis 06/12/2023 Anxiety 06/12/2023 Body mass index (BMI) of 19.0-19.9 in adult 06/12/2023 Childhood eating disorder ([facility]) 06/12/2023 Depressive disorder ([facility]) 06/07/2018 Disorder of refraction and accommodation 02/11/2014 Dysmenorrhea 06/12/2023 Menorrhagia with regular cycle 06/12/2023 Myopia 01/07/2015 Overactive bladder 09/15/2016 Overdose of antipsychotic, intentional self-harm, initial encounter ([facility]) 06/06/2018 Pharyngitis 06/12/2023 Tonsillitis 06/12/2023 Recurrent UTI 09/15/2016 Sore throat 06/12/2023 Viral gastritis 06/12/2023 Viral gastroenteritis 06/12/2023 Resolved Ambulatory Problems Diagnosis Date Noted No Resolved Ambulatory Problems Past Medical History: Diagnosis Date Headache Heartburn in Labia irritation HISTORY PAST MEDICAL HISTORY SOCIAL HISTORY Past Medical History: Diagnosis Date Headache Heartburn in Labia irritation Social History Tobacco Use Smoking status: Former Types: Cigarettes Smokeless tobacco: Never Vaping Use Vaping status: Every Day Substances: Nicotine, Flavoring Devices: Disposable Substance Use Topics Alcohol use: Not Currently Alcohol/week: 1.0 standard drink of alcohol Types: 1 Standard drinks or equivalent per week Drug use: Never FAMILY HISTORY No family history on file. SURGICAL HISTORY No past surgical history on file. REVIEW OF SYSTEMS Review of Systems: Review of Systems Constitutional: Negative. HENT: Negative. Eyes: Negative. Respiratory: Negative. Cardiovascular: Negative. Gastrointestinal: Negative. Genitourinary: Negative. Musculoskeletal: Negative. Neurological: Negative. Psychiatric/Behavioral: Negative. All other systems reviewed and are negative. OBJECTIVE Objective: Physical Exam Constitutional: Appearance: Normal appearance. She is well-developed. Genitourinary: Vulva normal. Cardiovascular: Rate and Rhythm: Normal rate and regular rhythm. Pulmonary: Effort: Pulmonary effort is normal. Breath sounds: Normal breath sounds. Abdominal: General: Bowel sounds are normal. There is no distension. Palpations: Abdomen is soft. Tenderness: There is no abdominal tenderness. There is no guarding or rebound. Musculoskeletal: General: No swelling. Normal range of motion. Right lower leg: No edema. Left lower leg: No edema. Neurological: Mental Status: She is alert and oriented to person, place, and time. Skin: General: Skin is warm and dry. Psychiatric: Mood and Affect: Mood normal. Behavior: Behavior normal. Vitals and nursing note reviewed. Exam conducted with a retrofit installer present. Vitals: Estimated body mass index is 21.95 kg/m as calculated from the following: Height as of 06/12/23: 5' 2 . Weight as of this encounter: 120 lb. BP: 100/66 No LMP recorded (lmp unknown). Patient is . ASSESSMENT & PLAN ICD-10-CM 1. Diabetes mellitus screening Z13.1 CBC Glucose tolerance, 1 hour 2. Well woman exam with routine gynecological exam Z01.419 Pap Smear 3. Heartburn during in second trimester O26.892 omeprazole (PriLOSEC) [address] capsule R12 Return OB/Annual Exam: Patient presents today for an annual exam/routine obstetrics appointment. Patient is currently 24w4d . Patient is doing well and states she has no complaints. Pap/cultures was obtained without difficulty and patient was given 1HR/CBC order to have obtained. Orders Placed This Encounter Procedures CBC Glucose tolerance, 1 hour Follow Up: Patient is to return to our office in 4 weeks for routine OB appointment Documented by Jeannette Rhodes LPN on behalf of: HAMLET Underwood documented in this encounter [facility] 07-20-2023 Evaluation note Encounter Date Diagnosis Assessment [...] and subcutaneous tissue, unspecified (ICD-10 - L08.9) [employer] Other 10-16-2023 Evaluation note* Encounter Date Diagnosis Assessment Notes Treatment Notes Treatment Clinical Notes Jul, Dysuria (ICD-10 - R30.0) Jul, Right otitis media, unspecified otitis media type (ICD-10 - H66.91) Middle ear infection: adult home care material was printed Jul, Acute otitis externa of right ear, unspecified type (ICD-10 - H60.501) Jul, Vaginal discharge (ICD-10 - N89.8) Vaginal discharge home care material was printed Jul, History of candidiasis of vagina (ICD-10 - Z86.19) [employer] Other 12-28-2022 Hospital Discharge instructions Patient Education 09/27/2022 23:49:20 Upper Respiratory Infection, Adult, Fvio-ks-Ssef Upper Respiratory Infection, Adult An upper respiratory [...] day or as needed. To make a salt- water mixture, completely dissolve 1 tsp of salt in 1 cup of warm water. Use a cool-mist humidifier to add moisture to the air. This can help you breathe more easily. Eating and drinking Drink enough fluid to keep your pee (urine) pale yellow. Eat soups and other clear broths. General instructions Take hmoy-rew-hsvuftj and prescription medicines only as told by [...] not have soap and water, use hand cold meat chef. Avoid touching your mouth, face, eyes, or [...] get better within 7 10 days. Take cgdk-fik-wqtlyma and prescription medicines only as told by your doctor. This information is not intended to replace advice given to you by your health care provider. Make sure you discuss any questions you have with your health care provider. Document Released: 03/06/2009 Document Revised: 09/26/2019 Document Reviewed: 05/11/2018 [employer] Patient Education 2020 [employer]. 09/27/2022 23:49:20 Cough, Adult, Ptny-xu-Nhpz Cough, Adult A cough helps to clear [...] Follow these instructions at home: Medicines Take hxzt-jtf-pvmluoz and prescription medicines only as told by [...] Many things can cause a cough. Take crsq-wrt-ffdhfey and prescription medicines only as told by [...] 05/31/2012 Document Revised: 10/07/2019 Document Reviewed: 10/07/2019 [employer] Patient Education 2020 [employer]. Follow Up Care 09/27/2022 22:50:28 With:Fatoumata Oneill Address:Unknown When:09/30/2022 Comments:Follow-up with your primary care provider in 3 to 5 days. If symptoms worsen, do not improve, or new symptoms arise please report back to emergency department for further evaluation. [facility] Evaluation + Plan noteExtracted from: Title:ED Note Author:Rober Wang PA-C te:09/27/22 Constipation (K59.00: Consti pation, unspecified) Upper respiratory infection, viral (J06.9: Acute upper respiratory infection, unspecified) Orders: polyethylene glycol 3350, 17 gm, Oral, Daily, # 12 EA, Refills(s) 0, Pharmacy: [facility]/pharmacy #[id number], 157.5, cm, 09/27/22 22:57:00 EST, Height/Length Dosing, 51.3, kg, 09/27/22 22:57:00 EST, Weight Dosing Group A Strep by PCR Rapid Strep w/rfx Diagnostic Tests Pending * Group A Strep by PCR 09/27/22 [facility] Evaluation + Plan note Future Scheduled Tests Laboratory* Rapid Strep w/rfx [facility] Work Phone: Evaluation noteNo InformationNortWellSpan [facility] [place] [facility] Other Evaluation note* Diagnosis Diabetes mellitus screening Screening for diabetes mellitus Well woman exam with routine gynecological exam Routine gynecological examination Heartburn during in second trimester documented in this encounter [facility] Narrative No data available for this section [facility] No data available for this section [facility] No data available for this [facility] Purpose Family History No Family History [...] section and content) DATE CREATED AUTHOR 07/16/2018 [facility] DATE CREATED AUTHOR AUTHOR'S ORGANIZ ATION 11/22/2019 [facility] DATE CREATED AUTHOR AUTHOR'S ORGANIZ ATION 12/30/2022 [facility] DATE CREATED AUTHOR AUTHOR'S ORGANIZ ATION 07/25/2023 [facility] DATE CREATED AUTHOR AUTHOR'S ORGANIZ ATION 10/01/2023 [facility] DATE CREATED AUTHOR AUTHOR'S ORGANIZ ATION 03/14/2024 [facility] DATE CREATED AUTHOR AUTHOR'S ORGANIZ ATION 07/30/2024 [facility] EPIC Patient Care team informatio n (unrecognized section and content) Team Status: Inactive Member Role Status Dates Mel Tomlinson NP-C Attending Provider Active Layout Man Relationship Specialty Start Date End Date Jesusita Torrez MD [address] [place] [id number] PCP - General Family Medicine 03/13/24 Layout Man Relationship Specialty Start Date End Date Jesusita Torrez MD [address] [place] [id number] PCP - General Family Medicine 03/13/24 Layout Man Relationship Specialty Start Date End Date Jesusita Torrez MD [address] [place], [place] [phone] PCP - General Family Medicine 03/13/24 Goals (unrecognized section and content) Goals may [...] BE BASED ON THE PRIMARY CLINICAL RECORDS. [facility]. provides no warranty or guarantee of the accuracy or completeness of information in this document.
[2024-08-03 16:04] VITALS: BP 113/69; PULSE 90; TEMP 36.8
[2024-08-03 16:27] LABS: Bilirubin Urine NEGATIVE (NEGATIVE); Blood Urine NEGATIVE (NEGATIVE); Clarity Urine CLEAR (CLEAR); Color Urine LT. YELLOW (YELLOW); Glucose Urine UA NEGATIVE (NEGATIVE); Ketones Urine NEGATIVE (NEGATIVE); Leukocyte Esterase Urine TRACE (NEGATIVE); Nitrite Urine NEGATIVE (NEGATIVE); Protein Urine NEGATIVE (NEG/TRACE); Urobilinogen Urine 0.2 EU/dL (0.2-1.0)
[2024-08-03 16:36] LABS: Urine Microscopic Indicated YES
[2024-08-03 16:37] LABS: Bacteria Urine TRACE #/HPF (NONE SEEN); Cast Seen? NONE SEEN #/LPF (NONE SEEN); Crystals Seen? None Seen #/HPF (None Seen); Mucus Urine NONE SEEN (NONE SEEN); RBC Urine NONE SEEN #/HPF (0-2); Squamous Epithelial Cell Urine FEW #/LPF (NONE/RARE); Urine Culture Indicated NO
== END 2024-08-03 16:58 | disposition home or self-care (01) ==
LOC: FBC 15:47
PROVIDERS: Admitting Provider Obstetrics & Gynecology; Visit Provider Obstetrics & Gynecology
DX: O26.893 Other specified pregnancy related conditions, third trimester (principal); Z3A.29 29 weeks gestation of pregnancy; R39.9 Unspecified symptoms and signs involving the genitourinary system; Z87.440 Personal history of urinary (tract) infections; Z87.442 Personal history of urinary calculi; R10.31 Right lower quadrant pain
CPT/HCPCS: 36415; 74176; 80053; 81001; 85025; 99285; G0378; G0379

== ENCOUNTER 2024-08-03 17:04 | Emergency (ER) | payer OTHER, SELFPAY ==
[2024-08-03 17:09] VITALS: BP 127/66; PULSE 89; TEMP 36.7; O2SAT 100; BMI 22.5
--- OUTSIDE RECORDS SUMMARY | 2024-08-03 17:09 | XMS_ITS | CCD ---
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 Name Role Phone OKSANAMAIRA ECHEVARRIA Unavailable Unavailable TOBY, ROSE MARY Unavailable Unavailable TOBY, ROSE MARY Unavailable Unavailable SONDIKE, CONOR B Unavailable Unavailable SONDIKE, CONOR B Unavailable Unavailable TOBY, ROSE MARY Unavailable Unavailable HISSETT, JOON Unavailable Unavailable TOBY, ROSE MARY Unavailable Unavailable JOSE LUIS NORIEGA Unavailable Unavailable NOAH MCCALLUM Unavailable Unavailable MAIDA REEVES Unavailable Unavailable TOBY, Rose Mary A Primary Care Physician [phone] Fatoumata Oneill Primary Care Physician MEHDI ., [...] Unavailable MEHDI ., DR SOLIS Attending Unavailable COATS, DR LEE [employer] Unavailable MEHDI ., [...] / neomycin 3.5 mg/ml / polymyxin b 70996 unt/ml otic suspension (4 sources) Aminoglycoside Antibacterial, Polymyxin-class Antibacterial, Corticosteroid Start: 07-17-2023 Neomycin-Polymyx in-HC 3.5-27403-4 3 drops right ear Three times a [...] for 2 Days Not-Taking polyethylene glycol 3350 69652 mg powder for oral solution (5 sources) Osmotic Laxative Start: 09-27-2022 take 17 g by mouth once daily Miralax 3350 17 gram packet 17 gm, Oral, Daily, # 12 EA, Refills(s) 0, Pharmacy: 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 [facility] Comment on above: TESTS RESULT FLAG UN ITS REF RANGE LAB Clinician Provided Cytology Information Source.............Cervix Other.............. No. of containers..01 ThinPrep Vial Age Algo ACOG Danni... FLAG LEGEND: L-Low Normal,H-High Normal,LL-Alert Low,HH-Alert High <-Panic Low,>-Panic High,A-Abnormal,AA-Critical Abnormal Performed at: 01 =G [address] [address] Leticia Longo MD, IGP, RFX APTIMA HPV ASCU Note . [facility] Comment on above: TESTS RESULT FLAG UN ITS REF RANGE LAB DIAGNOSIS: 02 NEGATIVE FOR INTRAEPITHELIAL LESION OR MALIGNANCY. THIS SPECIMEN WAS RESCREENED PART OF OUR CLIENT SERVICE ADMINISTRATOR PROGRAM. Specimen adequacy: 02 Satisfactory for evaluation. No endocervical component is identified. Performed by: 02 Margi Jamison, Bobbin Cleaner Hand (ASCP) QC reviewed by: 02 Nicole Houston, Bobbin Cleaner Hand . 02 Note: Note 02 The Pap [...] <-Panic Low,>-Panic High,A-Abnormal,AA-Critical Abnormal Performed at: [address] [address] Leticia Longo MD, Performed at: =G - [facility] [id number] Respooler: Leticia Longo MD, Phone: [phone] Performed at: [address] [id number] Respooler: Leticia Longo MD, Phone: [phone] [facility] URETHRITIS/DISCHARGE [...] 24 ABSOLUTE BASOPHIL 0.0 X10E9/L Normal 0.0-0.2 [facility] Comment on above: Performed By: #### C MEME [facility] [address], #### [facility] ([id number]) [address] [place] [address] ABSOLUTE NEUTROPHIL 7.1 X10E9/L High 1.5-6.6 [facility] Comment on above: Performed By: #### C MEME [facility] [address], #### [facility] ([id number]) [address] [place] [address] Basophils/100 WBC (Bld) 0.2 % Normal [facility] Comment on above: Performed By: #### C [facility]E [facility] [address], #### [facility] ([id number]) [address] [place] [address] Eosinophils (Bld) [#/Vol] 0.0 10*3/uL Normal 0.0-0.4 [facility] Comment on above: Performed By: #### Dar VALENTINE CMP, #### [facility] ([id number]) [address] [place] [address] Eosinophils/100 WBC (Bld) 0.4 % Normal [facility] Comment on above: Performed By: #### Dar [facility]INE [facility] [address], #### [facility] ([id number]) [address] [place] [address] Erythrocyte distribution width (RBC) [Ratio] 13.4 % Normal 11.5-15.0 [facility] Comment on above: Performed By: #### Dar VALENTINE CMP, #### [facility] ([id number]) [address] [place] [address] Hematocrit (Bld) [Volume fraction] 39.9 % Normal 35-47 [facility] Comment on above: Performed By: #### Dar [facility]ENTINE [facility] [address], #### [facility] ([id number]) [address] [place] [address] Hemoglobin (Bld) [Mass/Vol] 13.9 g/dL Normal 11.7-15.5 [facility] Comment on above: Performed By: #### Dar VALENTINE [facility], #### [facility] ([id number]) [address] [place] [address] 36596 Lymphocytes (Bld) [#/Vol] 2.0 10*3/uL Normal 1.0-3.5 [facility] Comment on above: Performed By: #### Dar VALENTINE CMP, #### [facility] ([id number]) [address] [place] [address] Lymphocytes/100 WBC (Bld) 20.6 % Normal [facility] Comment on above: Performed By: #### Dar VALENTINE CMP, #### [facility] ([id number]) [address] [place] [address]9996 MCH (RBC) [Entitic mass] 29.4 pg Normal 27-34 [facility] Comment on above: Performed By: #### Dar VALENTINE CMP, #### [facility] ([id number]) [address] [place] [address] 25453 MCHC (RBC) [Mass/Vol] 34.9 g/dL Normal 32-36 [facility] Comment on above: Performed By: #### Dar VALENTINE CMP, #### [facility] ([id number]) [address] [place] [address] 74356 MCV (RBC) [Entitic vol] 84 fL Normal 80-100 [facility] Comment on above: Performed By: #### Dar VALENTINE CMP, #### [facility] ([id number]) [address] [place] [address] 65335 Monocytes (Bld) [#/Vol] 0.7 10*3/uL Normal 0-0.9 [facility] Comment on above: Performed By: #### Dar VALENTINE CMP, #### [facility] ([id number]) [address] [place] [address] 11740 Monocytes/100 WBC (Bld) 7.4 % Normal [facility] Comment on above: Performed By: #### Dar VALENTINE CMP, #### [facility] ([id number]) [address] [place] [address] 08293 Neutrophils/100 WBC (Bld) 71.4 % Normal [facility] Comment on above: Performed By: #### Dar VALENTINE CMP, #### [facility] ([id number]) [address] [place] [address] 27853 Platelet mean volume (Bld) [Entitic vol] 9.0 fL Normal 7-12 [facility] Comment on above: Performed By: #### C BCA, CMP, #### [facility] ([id number]) [address] [place] [address] 79648 Platelets (Bld) [#/Vol] 194 10*3/uL Normal 150-450 [facility] Comment on above: Performed By: #### C BCA, CMP, #### [facility] ([id number]) [address] [place] [address] 04097 RBC COUNT 4.74 X10E12/L Normal 3.80-5.20 [facility] Comment on above: Performed By: #### C BCA, CMP, #### [facility] ([id number]) [address] [place] [address] 28334 WBC (Bld) [#/Vol] 10.0 10*3/uL Normal 4.0-11.0 [facility] Comment on above: Performed By: #### C BCA, CMP, #### [facility] ([id number]) [address] [place] [address] 21311 COMPREHENSIVE METABOLIC PANE Vini 03-11-2024 Albumin [Mass/Vol] 4.2 g/dL Normal 3.2-5.3 [facility] Comment on above: Performed By: #### C BCA, CMP, #### [facility] ([id number]) [address] [place] [address] 95451 ALP [Catalytic activity/Vol] 47 U/L Normal 39-130 [facility] Comment on above: Performed By: #### C BCA, CMP, #### [facility] ([id number]) [address] [place] [address] [place] [address] ALT [Catalytic activity/Vol] 15 U/L Normal 0-31 [facility] Comment on above: Performed By: #### C MEME CMP, #### [facility] ([id number]) [address] [place] [address] 52175 Anion gap [Moles/Vol] 7 mmol/L Normal 5-15 [facility] Comment on above: Performed By: #### C MEME CMP, #### [facility] ([id number]) [address] [place] [address] 53068 AST [Catalytic activity/Vol] 15 U/L Normal 0-41 [facility] Comment on above: Performed By: #### C AUREA VALENTINE, #### [facility] ([id number]) [address] [place] [address] [place] [address] Bilirubin [Mass/Vol] 0.5 mg/dL Normal 0.3-1.2 [facility] Comment on above: Performed By: #### C MEME CMP, #### [facility] ([id number]) [address] [place] [address] 95190 Calcium [Mass/Vol] 8.7 mg/dL Normal 8.5-10.5 [facility] Comment on above: Performed By: #### C MEME CMP, #### [facility] ([id number]) [address] [place] [address] [place] [address] Chloride [Moles/Vol] 103 mmol/L Normal 98-109 [facility] Comment on above: Performed By: #### C BCA, CMP, #### [facility] ([id number]) [address] [place] [address] 10101 CO2 [Moles/Vol] 22 mmol/L Normal 22-32 [facility] Comment on above: Performed By: #### C AUREA VALENTINE, #### [facility] ([id number]) [address] [place] [address] 95557 Creatinine [Mass/Vol] 0.72 mg/dL Normal 0.40-1.00 [facility] Comment on above: Result Comment: METH OD TRACEABLE TO IDMS STANDARD Performed By: #### C AUREA VALENTINE, #### [facility] ([id number]) [address] [place] [address] 85883 eGFR (CKD-EPI) NON-RACE DEPENDENT >90 Normal >59 [facility] Comment on above: Result Comment: Reported eGFR is based on the CKD-EPI 2020 equation that does not use a race coefficient. Performed By: #### C AUREA VALENTINE, #### [facility] ([id number]) [address] [place] [address] 23466 Glucose [Mass/Vol] 81 mg/dL Normal 65-99 [facility] Comment on above: Performed By: #### C AUREA VALENTINE, #### [facility] ([id number]) [address] [place] [address] 88481 Potassium [Moles/Vol] 3.7 mmol/L Normal 3.5-5.0 [facility] Comment on above: Performed By: #### C AUREA VALENTINE, #### [facility] ([id number]) [address] [place] [address] 94163 Protein [Mass/Vol] 7.4 g/dL Normal 6.0-8.0 [facility] Comment on above: Performed By: #### C AUREA VALENTINE, #### [facility] ([id number]) [address] [place] [address] 61189 Sodium [Moles/Vol] 132 mmol/L Low 134-146 [facility] Comment on above: Performed By: #### C BCA, CMP, #### [facility] ([id number]) [address] [place] [address] 87516 Urea nitrogen [Mass/Vol] 14 mg/dL Normal 5-23 [facility] Comment on above: Performed By: #### C BCA, CMP, #### [facility] ([id number]) [address] [place] [address] 55066 HCG ( test) Ql (U)o n 03-11-2024 Beta HCG ( test) Ql (U) Positive Abnormal NEG [facility] Comment on above: Performed By: #### 2 106-3 #### [facility] ([id number]) [address] [place] [address] 17469 HCG.beta subunit IA 3rd IS Q non 03-11-2024 HCG.beta subunit Qn 743670 m[IU]/mL Normal [facility] Comment on above: Result Comment: NEW REFERENCE [...] Performed By: #### C BCA, CMP, #### [facility] ([id number]) [address] [place] [address] 05374 URINE CULTUREon 03-11-2024 Bacteria identified Cx Nom (U) CULTURE RESULTS <10,000 ORGANISMS/ML NORMAL URO GENITAL RICK Normal [facility] Comment on above: Performed By: #### 6 30-4 #### [facility] ([id number]) [address] [place] [address], [address] [place] [address] URN MACROSCOPIC NURon 2023 BILIRUBIN FAWAD Negative Normal NEG [facility] Comment on above: Performed By: #### N UM #### [facility] ([id number]) [address] [place] [address] 14139 BLOOD/HGB FAWAD Negative Normal NEG [facility] Comment on above: Performed By: #### N UM #### [facility] ([id number]) [address] [place] [address] [place] [address] GLUCOSE FAWAD Negative Normal NEG [facility] Comment on above: Performed By: #### N UM #### [facility] ([id number]) [address] [place] [address] [place] [address] KETONES FAWAD Negative Normal NEG [facility] Comment on above: Performed By: #### N UM #### [facility] ([id number]) [address] [place] [address] [place] [address] LEUKOCYTE ESTERASE FAWAD Trace Abnormal NEG [facility] Comment on above: Performed By: #### N UM #### [facility] ([id number]) [address] [place] [address] [place] [address] NITRITE FAWAD Negative Normal NEG [facility] Comment on above: Performed By: #### N UM #### [facility] ([id number]) [address] [place] [address] 35982 PH FAWAD 6.5 Normal 5.0-8.5 [facility] Comment on above: Performed By: #### N UM #### [facility] ([id number]) [address] [place] [address] 24406 PROTEIN FAWAD Negative Normal NEG [facility] Comment on above: Performed By: #### N UM #### [facility] ([id number]) [address] [place] [address] 73167 SPECIFIC GRAVITY FAWAD 1.010 Normal 1.003-1.035 [facility] Comment on above: Performed By: #### N UM #### [facility] ([id number]) [address] [place] [address]4670 UROBILINOGEN FAAWD 0.2 eu/dL Normal <1.1 [facility] Comment on above: Performed By: #### N UM #### [facility] ([id number]) [address] [place] [address] CT ABDOMEN AND PELVIS WO CON Ton [...] Robbins MD on 11/26/2023 5:33 PM Normal [facility] HCG ( test) Ql (U)o n 11-26-2023 Beta HCG ( test) Ql (U) Negative Normal NEG [facility] Comment on above: Performed By: #### 2 106-3 #### [facility] ([id number]) [address] [place] [address] 31865 URINE CULTUREon 11-26-2023 Bacteria identified Cx Nom [...] F TRIMETH/SULFAMETHOXA ZOLE S <=1/19 F Susceptible [facility] Comment on above: Performed By: #### 6 30-4 #### [facility] ([id number]) [address] [place] [address], [address] [place] [address] URN MACROSCOPIC NURon 2023 BILIRUBIN FAWAD Negative Normal NEG [facility] Comment on above: Performed By: #### N UM #### [facility] ([id number]) [address] [place] [address] 49047 BLOOD/HGB FAWAD Trace Abnormal NEG [facility] Comment on above: Performed By: #### N UM #### [facility] ([id number]) [address] [place] [address] 26277 GLUCOSE FAWAD Negative Normal NEG [facility] Comment on above: Performed By: #### N UM #### [facility] ([id number]) [address] [place] [address] 11012 KETONES FAWAD Negative Normal NEG [facility] Comment on above: Performed By: #### N UM #### [facility] ([id number]) [address] [place] [address]109 LEUKOCYTE ESTERASE FAWAD Trace Abnormal NEG [facility] Comment on above: Performed By: #### N UM #### [facility] ([id number]) [address] [place] [address] 85854 NITRITE FAWAD Negative Normal NEG [facility] Comment on above: Performed By: #### N UM #### [facility] ([id number]) [address] [place] [address] 12124 PH FAWAD 7.0 Normal 5.0-8.5 [facility] Comment on above: Performed By: #### N UM #### [facility] ([id number]) [address] [place] [address] 18974 PROTEIN FAWAD Negative Normal NEG [facility] Comment on above: Performed By: #### N UM #### [facility] ([id number]) [address] [place] [address] 17914 SPECIFIC GRAVITY FAWAD 1.020 Normal 1.003-1.035 [facility] Comment on above: Performed By: #### N UM #### [facility] ([id number]) [address] [place] [address] 49987 UROBILINOGEN FAWAD 0.2 eu/dL Normal <1.1 [facility] Comment on above: Performed By: #### N UM #### [facility] ([id number]) [address] [place] [address]20 ED Note-Physicianon 09-29-20 ED Note-Physician [id number] #[id number] Normal [facility] Urinalysis - AUTOMATEDon Appearance (U) clear [employer] Other Bilirubin Ql (U) Negative [employer] Other Color (U) light yellow [employer] Other Glucose Ql (U) Negative [employer] Other Hemoglobin Ql (U) Negative Results [employer] Other Ketones Ql (U) Negative [employer] Other Leukocyte esterase Test strip Ql (U) Negative [employer] Other Nitrite Ql (U) Negative [employer] Other pH (U) 6.0 [pH] [employer] Other Protein Ql (U) Negative [employer] Other Specific gravity (U) [Rel density] >1.030 [employer] Other Urobilinogen (U) [Mass/Vol] 0.2 mg/dL [employer] Other Urinalysis - AUTOMATED [employer] Other Vaginitis Plus (VG+)on 07-17 Vaginitis Plus (VG+) Negative Negative [employer] Other Vaginitis Plus (VG+) Low - 0 . [employer] Other Atopobium Vaginae Low - 0 Normal . [facility] Comment on above: Performed By: #### V AGINITIS+ #### [facility] , BVAB2 Low - 0 Normal . [facility] Comment on above: Performed By: #### V AGINITIS+ #### [facility] , Ashley Albicans, CHULA Negative Normal Negative [facility] Comment on above: Result Comment: This test was developed and its performance characteristics determined by [employer]. It has not been cleared or approved by the Food and Drug Administration. Performed By: #### V AGINITIS+ #### [facility] , Ashley Glabrata, CHULA Negative Normal Negative [facility] Comment on above: Result Comment: This test was developed and its performance characteristics determined by [employer]. It has not been cleared or approved by the Food and Drug Administration. PERFORMED BY: [facility] [place] [address] PATHOLOGIST BLACKSMITH SUPERVISOR NELL GAUTAM M.D. Performed By: #### V AGINITIS+ #### [facility] , Chlamydia Trachomotis, CHULA Negative Normal Negative [facility] Comment on above: Performed By: #### V AGINITIS+ #### [facility] , Megasphaera Low - 0 Normal . [facility] Comment on above: Result Comment: Calc [...] developed and its performance characteristics determined by [employer]. It has not been cleared or approved by the Food and Drug Administration. Performed By: #### V AGINITIS+ #### [facility] , Neisseria Gonorrhoeae, CHULA Negative Normal Negative [facility] Comment on above: Result Comment: Perf ormed at: =G - [facility] [address] [id number] Respooler: Leticia Longo MD, Phone: [phone] Performed By: #### V AGINITIS+ #### [facility] , Tric Vag CHULA Negative Normal Negative [facility] Comment on above: Performed By: #### V AGINITIS+ #### [facility] , CBC AUTO DIFFon 12-27-2022 BASO # 0.0 103/ul Normal 0.0-0.1 [facility] Comment on above: Performed By: #### R PRQ #### [facility] [address] [place], [place] [address] Dr. Valerio Alexis Basophils/100 WBC (Bld) 0.2 % Normal 0.2-2.0 [facility] Comment on above: Performed By: #### R PRQ #### [facility] [address] [place] [address] Dr. Valerio Alexis EO # 0.1 103/ul Normal 0.0-0.7 [facility] Comment on above: Performed By: #### R PRQ #### [facility] [address] [place] [address] Dr. Valerio Alexis Eosinophils/100 WBC (Bld) 0.6 % Critically low 0.9-7.0 [facility] Comment on above: Performed By: #### R PRQ #### [facility] [address] [place] [address] Dr. Valerio Alexis Erythrocyte distribution width (RBC) [Ratio] 14.1 % Normal 11.0-15.0 [facility] Comment on above: Performed By: #### R PRQ #### [facility] [address] [place] [address] Dr. Valerio Alexis Hematocrit (Bld) [Volume fraction] 35.7 % Critically low 36.0-48.0 [facility] Comment on above: Performed By: #### R PRQ #### [facility] [address] [place] [address] Dr. Valerio Alexis Hemoglobin (Bld) [Mass/Vol] 11.9 g/dL Critically low 12.0-16.0 [facility] Comment on above: Performed By: #### R PRQ #### [facility] [address] [place] [address] Dr. Valerio Alexis IG # 0.02 10e3/ul Normal 0.00-0.03 [facility] Comment on above: Performed By: #### R PRQ #### [facility] [address] [place] [address] Dr. Valerio Alexis IG % 0.2 % Normal 0.0-0.5 [facility] Comment on above: Performed By: #### R PRQ #### [facility] [address] [place] [address] Dr. Valerio Alexis LYMPH # 1.0 103/ul Critically low 1.2-3.8 [facility] Comment on above: Performed By: #### R PRQ #### [facility] [address] [place] [address] [address] Valerio Alexis Lymphocytes/100 WBC (Bld) 12.4 % Critically low 20.5-60.0 [facility] Comment on above: Performed By: #### R PRQ #### [facility] [address] [place] [address] [address] Valerio Alexis MANUAL DIFF REQ NO Normal [facility] Comment on above: Performed By: #### R PRQ #### [facility] [address] [place] [address] [address] Valerio Alexis MCH (RBC) [Entitic mass] 26.7 pg Normal 26.7-34.0 [facility] Comment on above: Performed By: #### R PRQ #### [facility] [address] [place] [address] Dr. Valerio Alexis MCHC (RBC) [Mass/Vol] 33.3 g/dL Normal 29.9-35.2 [facility] Comment on above: Performed By: #### R PRQ #### [facility] [address] [place] [address] Dr. Valerio Alexis MCV (RBC) [Entitic vol] 80.2 fL Critically low 81.0-99.0 [facility] Comment on above: Performed By: #### R PRQ #### [facility] [address] [place] [address] Dr. Valerio Alexis MONO # 0.8 103/ul Normal 0.3-0.8 [facility] Comment on above: Performed By: #### R PRQ #### [facility] [address] [place] [address] Dr. Valerio Alexis Monocytes/100 WBC (Bld) 9.3 % Normal 1.7-12.0 [facility] Comment on above: Performed By: #### R PRQ #### [facility] [address] [place] [address] Dr. Valerio Alexis NEUT # 6.3 103/ul Normal 1.4-6.5 [facility] Comment on above: Performed By: #### R PRQ #### [facility] [address] [place] [address] [address] Valerio Alexis Neutrophils/100 WBC (Bld) 77.3 % Critically high 43.0-75.0 [facility] Comment on above: Performed By: #### R PRQ #### [facility] [address] [place] [address] [address] Valerio Alexis Platelet mean volume (Bld) [Entitic vol] 10.6 fL Normal 9.5-13.5 [facility] Comment on above: Performed By: #### R PRQ #### [facility] [address] [place] [address] Dr. Valerio Alexis PLT 192 103/ul Normal 150-450 [facility] Comment on above: Performed By: #### R PRQ #### [facility] [address] [place] [address] Dr. Valerio Alexis RBC 4.45 106/ul Normal 4.20-5.40 [facility] Comment on above: Performed By: #### R PRQ #### [facility] [address] [place] [address] Dr. Valerio Alexis WBC 8.2 103/ul Normal 4.0-11.0 [facility] Comment on above: Performed By: #### R PRQ #### [facility] [address] [place] [address] Dr. Valerio Alexis GI PANEL (PCR)on 12-27-2022 Adenovirus F 40/41 Not detected Normal NOT DETECTED [facility] Comment on above: Performed By: #### U RCX #### [facility] [address] [place] [address] Dr. Valerio Alexis Astrovirus Not detected Normal NOT DETECTED The [facility] Comment on above: Performed By: #### U RCX #### [facility] [address] [place] [address] Dr. Valerio Alexis C. Diff toxin A/B Not detected Normal NOT DETECTED [facility] Comment on above: Performed By: #### U RCX #### [facility] [address] [address] [address] Valerio Alexis Campylobacter Detected Critically abnormal NOT DETECTED [facility] Comment on above: Performed By: #### U RCX #### [facility] [address] [address] [address] Valerio Alexis Cryptosporidium Not detected Normal NOT DETECTED The [facility] Comment on above: Performed By: #### U RCX #### [facility] [address] [address] [address] Valerio Alexis Cyclos. Cayetanensis Not detected Normal NOT DETECTED [facility] Comment on above: Performed By: #### U RCX #### [facility] [address] [address] [address] Valerio Alexis E. Coli O157 Not Applicable Normal Not Applicable [facility] Comment on above: Performed By: #### U RCX #### [facility] [address] [address] [address] Valerio Alexis E. histolytica Not detected Normal NOT DETECTED [facility] Comment on above: Performed By: #### U RCX #### [facility] [address] [address] [address] Valerio Alexis EAEC Not detected Normal NOT DETECTED The [facility] Comment on above: Performed By: #### U RCX #### [facility] [address] [address] [address] Valerio Alexis EIEC Not detected Normal NOT DETECTED The [facility] Comment on above: Performed By: #### U RCX #### [facility] [address] [place] [address] Dr. Valerio Alexis EPEC Not detected Normal NOT DETECTED The [facility] Comment on above: Performed By: #### U RCX #### [facility] [address] [place] [address] Dr. Valerio Alexis ETEC Not detected Normal NOT DETECTED The [facility] Comment on above: Performed By: #### U RCX #### [facility] [address] [address] [address] Valerio Alexis G. Lamblia Not detected Normal NOT DETECTED The [facility] Comment on above: Performed By: #### U RCX #### [facility] [address] [address] [address] Valerio HUDSON CONTROLS PASSED Normal [facility] Comment on above: Performed By: #### U RCX #### [facility] [address] [address] [address] Valerio HARRIS EDE HEADER GI PANEL BACTERIA Normal [facility] Comment on above: Performed By: #### U RCX #### [facility] [address] [address] [address] Valerio LÓPEZ ECOLI GI PANEL DIARRHEAGENIC E.COLI / SHIGELLA Normal [facility] Comment on above: Performed By: #### U RCX #### [facility] [address] [address] [address] Valerio LÓPEZ INFO SEE BELOW Normal [facility] Comment on above: Result Comment: EAEC - Enteroaggregative E. Coli EPEC- Enteropathogenic E. Coli ETEC- Enterotoxigenic E. Coli lt/st STEC- Shigella-like toxin-producing E. Coli stx1/stx2 EIEC- Shigella/Enteroinvasive E. Coli Performed By: #### U RCX #### [facility] [address] [address] [address] Valerio LÓPEZ PARASITES GI PANEL PARASITES Normal [facility] Comment on above: Performed By: #### U RCX #### [facility] [address] [address] [address] Valerio LÓPEZ VIRUS GI PANEL VIRUSES Normal [facility] Comment on above: Performed By: #### U RCX #### [facility] [address] [address] [address] Valerio Alexis Norovirus GI/GII Not detected Normal NOT DETECTED [facility] Comment on above: Performed By: #### U RCX #### [facility] [address] [address] [address] Valerio Alexis P. Shigelloides Not detected Normal NOT DETECTED [facility] Comment on above: Performed By: #### U RCX #### [facility] [address] [place] [address] Dr. Valerio Alexis Rotavirus A Not detected Normal NOT DETECTED [facility] Comment on above: Performed By: #### U RCX #### [facility] [address] [place] [address] Dr. Valerio Alexis Salmonella Not detected Normal NOT DETECTED The [facility] Comment on above: Performed By: #### U RCX #### [facility] [address] [place] [address] Dr. Valerio Alexis Sapovirus Not detected Normal NOT DETECTED The [facility] Comment on above: Performed By: #### U RCX #### [facility] [address] [place] [address] Dr. Valerio Alexis STEC Not detected Normal NOT DETECTED The [facility] Comment on above: Performed By: #### U RCX #### [facility] [address] [place] [address] Dr. Valerio Alexis Vibrio Not detected Normal NOT DETECTED The [facility] Comment on above: Performed By: #### U RCX #### [facility] [address] [place] [address] Dr. Valerio Alexis Vibrio Cholera Not detected Normal NOT DETECTED [facility] Comment on above: Performed By: #### U RCX #### [facility] [address] [place] [address] Dr. Valerio Alexis Y. Enterocolitica Not detected Normal NOT DETECTED [facility] Comment on above: Performed By: #### U RCX #### [facility] [address] [place] [address] Dr. Valerio Alexis PROF CHEM 8 (BAS METB)on Anion gap [Moles/Vol] 14.7 mmol/L Normal [facility] Comment on above: Performed By: #### R PRQ #### [facility] [address] [place] [address] Dr. Valerio Alexis Calcium [Mass/Vol] 8.8 mg/dL Normal 8.5-10.1 [facility] Comment on above: Performed By: #### R PRQ #### [facility] [address] [address] [address] Valerio Alexis Chloride [Moles/Vol] 104 mmol/L Normal 98-107 [facility] Comment on above: Performed By: #### R PRQ #### [facility] [address] [address] [address] Valerio Alexis CO2 [Moles/Vol] 23.6 mmol/L Normal 21.0-32.0 [facility] Comment on above: Performed By: #### R PRQ #### [facility] [address] [address] [address] Valerio Alexis Creatinine [Mass/Vol] 0.72 mg/dL Normal 0.55-1.02 [facility] Comment on above: Performed By: #### R PRQ #### [facility] [address] [address] [address] Valerio Alexis EGFR-AF CYPRIOT >60 Normal >=60 [facility] Comment on above: Performed By: #### R PRQ #### [facility] [address] [address] [address] Valerio Alexis EGFR-NON AF CYPRIOT >60 Normal >=60 [facility] Comment on above: Performed By: #### R PRQ #### [facility] [address] [address] [address] Valerio Alexis Glucose [Mass/Vol] 77 mg/dL Normal 74-106 [facility] Comment on above: Performed By: #### R PRQ #### [facility] [address] [address] [address] Valerio Alexis Potassium [Moles/Vol] 3.3 mmol/L Critically low 3.5-5.1 [facility] Comment on above: Performed By: #### R PRQ #### [facility] [address] [address] [address] Valerio Alexis Sodium [Moles/Vol] 139 mmol/L Normal 136-145 [facility] Comment on above: Performed By: #### R PRQ #### [facility] [address] [place] [address] Dr. Valerio Alexis Urea nitrogen [Mass/Vol] 12.0 mg/dL Normal 7.0-18.0 [facility] Comment on above: Performed By: #### R PRQ #### [facility] [address] [place] [address] Dr. Valerio Alexis Urea nitrogen/Creatinine [Mass ratio] 16.7 mg/mg Normal [facility] Comment on above: Performed By: #### R PRQ #### [facility] [address] [place] [address] Dr. Valerio Alexis CBC AUTO DIFFon 11-19-2022 BASO # 0.0 103/ul Normal 0.0-0.1 [facility] Comment on above: Performed By: #### H IV12 #### [facility] [address] [place] [address] Dr. Valerio Alexis Basophils/100 WBC (Bld) 0.2 % Normal 0.2-2.0 [facility] Comment on above: Performed By: #### H IV12 #### [facility] [address] [place] [address] Dr. Valerio Alexis EO # 0.1 103/ul Normal 0.0-0.7 [facility] Comment on above: Performed By: #### H IV12 #### [facility] [address] [place] [address] Dr. Valerio Alexis Eosinophils/100 WBC (Bld) 1.7 % Normal 0.9-7.0 [facility] Comment on above: Performed By: #### H IV12 #### [facility] [address] [place] [address] Dr. Valerio Alexis Erythrocyte distribution width (RBC) [Ratio] 13.4 % Normal 11.0-15.0 [facility] Comment on above: Performed By: #### H IV12 #### [facility] [address] [place] [address] Dr. Valerio Alexis Hematocrit (Bld) [Volume fraction] 38.0 % Normal 36.0-48.0 [facility] Comment on above: Performed By: #### H IV12 #### [facility] [address] [address] [address] Valerio Alexis Hemoglobin (Bld) [Mass/Vol] 12.5 g/dL Normal 12.0-16.0 [facility] Comment on above: Performed By: #### H IV12 #### [facility] [address] [place] [address] Dr. Valerio Alexis IG # 0.02 10e3/ul Normal 0.00-0.03 [facility] Comment on above: Performed By: #### H IV12 #### [facility] [address] [place] [address] Dr. Valerio Alexis IG % 0.3 % Normal 0.0-0.5 [facility] Comment on above: Performed By: #### H IV12 #### [facility] [address] [place] [address] Dr. Valerio Alexis LYMPH # 1.7 103/ul Normal 1.2-3.8 [facility] Comment on above: Performed By: #### H IV12 #### [facility] [address] [place] [address] Dr. Valerio Alexis Lymphocytes/100 WBC (Bld) 25.9 % Normal 20.5-60.0 [facility] Comment on above: Performed By: #### H IV12 #### [facility] [address] [place] [address] Dr. Valerio Alexis MANUAL DIFF REQ NO Normal [facility] Comment on above: Performed By: #### H IV12 #### [facility] [address] [place] [address] Dr. Valerio Alexis MCH (RBC) [Entitic mass] 26.3 pg Critically low 26.7-34.0 [facility] Comment on above: Performed By: #### H IV12 #### [facility] [address] [place] [address] Dr. Valerio Alexis MCHC (RBC) [Mass/Vol] 32.9 g/dL Normal 29.9-35.2 [facility] Comment on above: Performed By: #### H IV12 #### [facility] [address] [place] [address] Dr. Valerio Alexis MCV (RBC) [Entitic vol] 80.0 fL Critically low 81.0-99.0 [facility] Comment on above: Performed By: #### H IV12 #### [facility] [address] [place] [address] Dr. Valerio Alexis MONO # 0.6 103/ul Normal 0.3-0.8 [facility] Comment on above: Performed By: #### H IV12 #### [facility] [address] [place] [address] Dr. Valerio Alexis Monocytes/100 WBC (Bld) 9.2 % Normal 1.7-12.0 [facility] Comment on above: Performed By: #### H IV12 #### [facility] [address] [place] [address] Dr. Valerio Alexis NEUT # 4.1 103/ul Normal 1.4-6.5 [facility] Comment on above: Performed By: #### H IV12 #### [facility] [address] [place] [address] Dr. Valerio Alexis Neutrophils/100 WBC (Bld) 62.7 % Normal 43.0-75.0 [facility] Comment on above: Performed By: #### H IV12 #### [facility] [address] [place] [address] Dr. Valerio Alexis Platelet mean volume (Bld) [Entitic vol] 10.4 fL Normal 9.5-13.5 [facility] Comment on above: Performed By: #### H IV12 #### [facility] [address] [place] [address] Dr. Valerio Alexis PLT 254 103/ul Normal 150-450 [facility] Comment on above: Performed By: #### H IV12 #### [facility] [address] [place] [address] Dr. Valerio Alexis RBC 4.75 106/ul Normal 4.20-5.40 [facility] Comment on above: Performed By: #### H IV12 #### [facility] [address] [address] [address] Valerio Alexis WBC 6.5 103/ul Normal 4.0-11.0 [facility] Comment on above: Performed By: #### H IV12 #### [facility] [address] [address] [address] ABD/PELVIS WO CONon [...] MAHAD OLIVEROS Date: 2022-11-19 00:58 Normal [facility] ER URINE PROFILEon 3 Bilirubin Ql (U) Negative Normal NEGATIVE [facility] Comment on above: Performed By: #### H H #### [facility] [address] [address] [address] Valerio Alexis Clarity (U) CLEAR Normal CLEAR [facility] Comment on above: Performed By: #### H H #### [facility] [address] [place] [address] Dr. Valerio Alexis Color (U) LT. YELLOW Normal YELLOW [facility] Comment on above: Performed By: #### H H #### [facility] [address] [address] [address] Valerio DAVISON A micrscopic examination will be performed if indicated. Normal [facility] Comment on above: Performed By: #### H H #### [facility] [address] [place] [address] Dr. Valerio Alexis Glucose Ql (U) Negative Normal NEGATIVE [facility] Comment on above: Performed By: #### H H #### [facility] [address] [place] [address] Dr. Valerio Alexis Hemoglobin Ql (U) Negative Normal NEGATIVE [facility] Comment on above: Performed By: #### H H #### [facility] [address] [place] [address] Dr. Valerio Alexis Ketones Ql (U) Negative Normal NEGATIVE [facility] Comment on above: Performed By: #### H H #### [facility] [address] [place] [address] Dr. Valerio Alexis LEUKOCYTES Negative Normal NEGATIVE [facility] Comment on above: Performed By: #### H H #### [facility] [address] [place] [address] Dr. Valerio Alexis Nitrite Ql (U) Negative Normal NEGATIVE [facility] Comment on above: Performed By: #### H H #### [facility] [address] [place] [address] Dr. Valerio Alexis pH (U) 6.0 [pH] Normal 5-9 [facility] Comment on above: Performed By: #### H H #### [facility] [address] [place] [address] Dr. Valerio Alexis SPEC GRAVITY 1.010 Normal 1.005-<=1.025 [facility] Comment on above: Performed By: #### H H #### [facility] [address] [place] [address] Dr. Valerio Alexis UA PROTEIN Negative Normal NEGATIVE/ TRACE [facility] Comment on above: Performed By: #### H H #### [facility] [address] [place] [address] Dr. Valerio Alexis UR MICRO IND NOT INDICATED Normal [facility] Comment on above: Performed By: #### H H #### [facility] [address] [address] [address] Valerio Alexis Urobilinogen Qn (U) 0.2 {Nicolas'U}/dL Normal 0.2 - 1. 0 [facility] Comment on above: Performed By: #### H H #### [facility] [address] [place] [address] Dr. Valerio Alexis PROF CHEM 8 (BAS METB)on Anion gap [Moles/Vol] 12.1 mmol/L Normal [facility] Comment on above: Performed By: #### H H #### [facility] [address] [place] [address] Dr. Valerio Alexis Calcium [Mass/Vol] 9.2 mg/dL Normal 8.5-10.1 [facility] Comment on above: Performed By: #### H H #### [facility] [address] [place] [address] Dr. Valerio Alexis Chloride [Moles/Vol] 104 mmol/L Normal 98-107 [facility] Comment on above: Performed By: #### H H #### [facility] [address] [place] [address] Dr. Valerio Alexis CO2 [Moles/Vol] 27.0 mmol/L Normal 21.0-32.0 [facility] Comment on above: Performed By: #### H H #### [facility] [address] [place] [address] Dr. Valerio Alexis Creatinine [Mass/Vol] 0.75 mg/dL Normal 0.55-1.02 [facility] Comment on above: Performed By: #### H H #### [facility] [address] [place] [address] Dr. Valerio Alexis EGFR-AF CYPRIOT >60 Normal >=60 [facility] Comment on above: Performed By: #### H H #### [facility] [address] [place] [address] Dr. Valerio Alexis EGFR-NON AF CYPRIOT >60 Normal >=60 [facility] Comment on above: Performed By: #### H H #### [facility] [address] [address] [address] Valerio Alexis Glucose [Mass/Vol] 83 mg/dL Normal 74-106 [facility] Comment on above: Performed By: #### H H #### [facility] [address] [place] [address] Dr. Valerio Alexis Potassium [Moles/Vol] 4.1 mmol/L Normal 3.5-5.1 [facility] Comment on above: Performed By: #### H H #### [facility] [address] [place] [address] Dr. Valerio Alexis Sodium [Moles/Vol] 139 mmol/L Normal 136-145 [facility] Comment on above: Performed By: #### H H #### [facility] [address] [place] [address] Dr. Valerio Alexis Urea nitrogen [Mass/Vol] 16.0 mg/dL Normal 7.0-18.0 [facility] Comment on above: Performed By: #### H H #### [facility] [address] [place] [address] Dr. Valerio Alexis Urea nitrogen/Creatinine [Mass ratio] 21.3 mg/mg Normal [facility] Comment on above: Performed By: #### H H #### [facility] [address] [place] [address] Dr. Valerio Alexis CHLAMYDIA/GONOCOCCUS CHULA ( AB/URINE/PAPon 10-27-2022 Chlamydia trachomatis, CHULA Negative Normal Negative [facility] Comment on above: Performed By: #### N BOX #### [facility] [address] [place] [address] Dr. Valerio Alexis Neisseria gonorrhoeae, CHULA Negative Normal Negative [facility] Comment on above: Performed By: #### N BOX #### [facility] [address] [place] [address] Dr. Valerio Alexis VAGINITIS/VAGINOSIS DNA PROB Dane 10-26-2022 Ashley species Negative Normal Negative [facility] Comment on above: Performed By: #### R PRQ #### [facility] [address] [place] [address] Dr. Valerio Alexis Gardnerella vaginalis Positive Abnormal Negative [facility] Comment on above: Performed By: #### R PRQ #### [facility] [address] [place] [address] Dr. Valerio Alexis Trichomonas vaginalis Negative Normal Negative [facility] Comment on above: Performed By: #### R PRQ #### [facility] [address] [place] [address] Dr. Valerio Alexis MICRO OTHER TESTSOrdered By: Cesar Riggs on 09-27-2022 S. pyogenes Ag IA.rapid Ql (Throat) Negative (09/27/22 11:23 PM) Normal Negative [facility] [place] CBC AUTO DIFFon 08-25-2022 BASO # 0.0 103/ul Normal 0.0-0.1 [facility] Comment on above: Performed By: #### R PRQ #### [facility] [address] [place] [address] Dr. Valerio Alexis Basophils/100 WBC (Bld) 0.3 % Normal 0.2-2.0 [facility] Comment on above: Performed By: #### R PRQ #### [facility] [address] [place] [address] Dr. Valerio Alexis EO # 0.1 103/ul Normal 0.0-0.7 [facility] Comment on above: Performed By: #### R PRQ #### [facility] [address] [place] [address] Dr. Valerio Alexis Eosinophils/100 WBC (Bld) 0.7 % Critically low 0.9-7.0 [facility] Comment on above: Performed By: #### R PRQ #### [facility] [address] [place] [address] Dr. Valerio Alexis Erythrocyte distribution width (RBC) [Ratio] 13.6 % Normal 11.0-15.0 [facility] Comment on above: Performed By: #### R PRQ #### [facility] [address] [place] [address] Dr. Valerio Alexis Hematocrit (Bld) [Volume fraction] 28.2 % Critically low 36.0-48.0 [facility] Comment on above: Performed By: #### R PRQ #### [facility] [address] [place] [address] Dr. Valerio Alexis Hemoglobin (Bld) [Mass/Vol] 9.6 g/dL Critically low 12.0-16.0 [facility] Comment on above: Performed By: #### R PRQ #### [facility] [address] [place] [address] Dr. Valerio Alexis IG # 0.10 10e3/ul Critically high 0.00-0.03 [facility] Comment on above: Performed By: #### R PRQ #### [facility] [address] [place] [address] Dr. Valerio Alexis IG % 0.7 % Critically high 0.0-0.5 [facility] Comment on above: Performed By: #### R PRQ #### [facility] [address] [place] [address] Dr. Valerio Alexis LYMPH # 2.2 103/ul Normal 1.2-3.8 [facility] Comment on above: Performed By: #### R PRQ #### [facility] [address] [place] [address] Dr. Valerio Alexis Lymphocytes/100 WBC (Bld) 16.5 % Critically low 20.5-60.0 [facility] Comment on above: Performed By: #### R PRQ #### [facility] [address] [place] [address] Dr. Valerio Alexis MANUAL DIFF REQ NO Normal [facility] Comment on above: Performed By: #### R PRQ #### [facility] [address] [place] [address] Dr. Valerio Alexis MCH (RBC) [Entitic mass] 27.7 pg Normal 26.7-34.0 [facility] Comment on above: Performed By: #### R PRQ #### [facility] [address] [place] [address] Dr. Valerio Alexis MCHC (RBC) [Mass/Vol] 34.0 g/dL Normal 29.9-35.2 [facility] Comment on above: Performed By: #### R PRQ #### [facility] [address] [address] [address] Valerio Alexis MCV (RBC) [Entitic vol] 81.3 fL Normal 81.0-99.0 [facility] Comment on above: Performed By: #### R PRQ #### [facility] [address] [place] [address] Dr. Valerio Alexis MONO # 1.2 103/ul Critically high 0.3-0.8 [facility] Comment on above: Performed By: #### R PRQ #### [facility] [address] [place] [address] Dr. Valerio Alexis Monocytes/100 WBC (Bld) 8.7 % Normal 1.7-12.0 [facility] Comment on above: Performed By: #### R PRQ #### [facility] [address] [place] [address] Dr. Valerio Alexis NEUT # 9.9 103/ul Critically high 1.4-6.5 [facility] Comment on above: Performed By: #### R PRQ #### [facility] [address] [place] [address] Dr. Valerio Alexis Neutrophils/100 WBC (Bld) 73.1 % Normal 43.0-75.0 [facility] Comment on above: Performed By: #### R PRQ #### [facility] [address] [place] [address] Dr. Valerio Alexis Platelet mean volume (Bld) [Entitic vol] 9.9 fL Normal 9.5-13.5 [facility] Comment on above: Performed By: #### R PRQ #### [facility] [address] [place] [address] Dr. Valerio Alexis PLT 200 103/ul Normal 150-450 [facility] Comment on above: Performed By: #### R PRQ #### [facility] [address] [place] [address] Dr. Valerio Alexis RBC 3.47 106/ul Critically low 4.20-5.40 [facility] Comment on above: Performed By: #### R PRQ #### [facility] [address] [address] [address] Valerio Alexis WBC 13.5 103/ul Critically high 4.0-11.0 [facility] Comment on above: Performed By: #### R PRQ #### [facility] [address] [address] [address] Valerio Alexis CBC AUTO DIFFon 08-24-2022 BASO # 0.0 103/ul Normal 0.0-0.1 [facility] Comment on above: Performed By: #### H H #### [facility] [address] [place] [address] Dr. Valerio Alexis Basophils/100 WBC (Bld) 0.3 % Normal 0.2-2.0 [facility] Comment on above: Performed By: #### H H #### [facility] [address] [place] [address] Dr. Valerio Alexis EO # 0.1 103/ul Normal 0.0-0.7 [facility] Comment on above: Performed By: #### H H #### [facility] [address] [place] [address] Dr. Valerio Alexis Eosinophils/100 WBC (Bld) 0.5 % Critically low 0.9-7.0 [facility] Comment on above: Performed By: #### H H #### [facility] [address] [place] [address] Dr. Valerio Alexis Erythrocyte distribution width (RBC) [Ratio] 13.2 % Normal 11.0-15.0 [facility] Comment on above: Performed By: #### H H #### [facility] [address] [place] [address] Dr. Valerio Alexis Hematocrit (Bld) [Volume fraction] 32.4 % Critically low 36.0-48.0 [facility] Comment on above: Performed By: #### H H #### [facility] [address] [address] [address] Valerio Alexis Hemoglobin (Bld) [Mass/Vol] 10.9 g/dL Critically low 12.0-16.0 [facility] Comment on above: Performed By: #### H H #### [facility] [address] [address] [address] Valerio Alexis IG # 0.07 10e3/ul Critically high 0.00-0.03 [facility] Comment on above: Performed By: #### H H #### [facility] [address] [place] [address] Dr. Valerio Alexis IG % 0.6 % Critically high 0.0-0.5 [facility] Comment on above: Performed By: #### H H #### [facility] [address] [place] [address] Dr. Valerio Alexis LYMPH # 2.0 103/ul Normal 1.2-3.8 [facility] Comment on above: Performed By: #### H H #### [facility] [address] [place] [address] Dr. Valerio Alexis Lymphocytes/100 WBC (Bld) 18.4 % Critically low 20.5-60.0 [facility] Comment on above: Performed By: #### H H #### [facility] [address] [place] [address] Dr. Valerio Alexis MANUAL DIFF REQ NO Normal [facility] Comment on above: Performed By: #### H H #### [facility] [address] [address] [address] Valerio Alexis MCH (RBC) [Entitic mass] 27.1 pg Normal 26.7-34.0 [facility] Comment on above: Performed By: #### H H #### [facility] [address] [place] [address] Dr. Valerio Alexis MCHC (RBC) [Mass/Vol] 33.6 g/dL Normal 29.9-35.2 [facility] Comment on above: Performed By: #### H H #### [facility] [address] [place] [address] Dr. Valerio Alexis MCV (RBC) [Entitic vol] 80.6 fL Critically low 81.0-99.0 [facility] Comment on above: Performed By: #### H H #### [facility] [address] [place] [address] Dr. Valerio Alexis MONO # 0.9 103/ul Critically high 0.3-0.8 [facility] Comment on above: Performed By: #### H H #### [facility] [address] [place] [address] Dr. Valerio Alexis Monocytes/100 WBC (Bld) 8.5 % Normal 1.7-12.0 [facility] Comment on above: Performed By: #### H H #### [facility] [address] [place] [address] Dr. Valerio Alexis NEUT # 7.7 103/ul Critically high 1.4-6.5 [facility] Comment on above: Performed By: #### H H #### [facility] [address] [place] [address] Dr. Valerio Alexis Neutrophils/100 WBC (Bld) 71.7 % Normal 43.0-75.0 [facility] Comment on above: Performed By: #### H H #### [facility] [address] [place] [address] Dr. Valerio Aleixs Platelet mean volume (Bld) [Entitic vol] 9.8 fL Normal 9.5-13.5 [facility] Comment on above: Performed By: #### H H #### [facility] [address] [place] [address] Dr. Valerio Alexis PLT 273 103/ul Normal 150-450 [facility] Comment on above: Performed By: #### H H #### [facility] [address] [place] [address] Dr. Valerio Alexis RBC 4.02 106/ul Critically low 4.20-5.40 [facility] Comment on above: Performed By: #### H H #### [facility] [address] [place] [address] Dr. Valerio Alexis WBC 10.8 103/ul Normal 4.0-11.0 [facility] Comment on above: Performed By: #### H H #### [facility] [address] [address] [address] Valerio Alexis Covid-19 PCR ([facility])on 08-03 SARS-CoV-2 (COVID-19) RNA CHULA+probe Ql (Unsp spec) Not detected Normal NOT DETECTED [facility] Comment on above: Result Comment: When [...] for this test is supported by the [employer] and Human Service's declaration that [...] used). Performed By: #### H H #### [facility] [address] [place] [address] Dr. Valerio Alexis DRUG SCREEN RAPID (URINE)on 08-24-2022 AMP Negative Normal NEGATIVE [facility] Comment on above: Performed By: #### H H #### [facility] [address] [address] [address] Valerio Alexis BAR Negative Normal NEGATIVE [facility] Comment on above: Performed By: #### H H #### [facility] [address] [place] [address] Dr. Valerio Alexis BUP Negative Normal NEGATIVE [facility] Comment on above: Performed By: #### H H #### [facility] [address] [address] [address] Valerio Alexis BZO Negative Normal NEGATIVE [facility] Comment on above: Performed By: #### H H #### [facility] [address] [address] [address] Valerio Alexis WENDY Negative Normal NEGATIVE [facility] Comment on above: Performed By: #### H H #### [facility] [address] [address] [address] Valerio Alexis CUT-OFFS SEE BELOW Normal [facility] Comment on above: Result Comment: AMP (Amphetamine): 500ng/mL, BAR (Barbituates): 200 ng/mL, BZO (Benzodiazepines): 150 ng/mL, BUP (Buprenorphine): 10 ng/mL, WENDY (Cocaine): 150 ng/mL, mAMP (Methamphetamine): 500 ng/mL, MTD (Methadone): 200 ng/mL, OPI (Opiates): 100 ng/mL, OXY (Oxycodone): 100 ng/mL, PCP (Phencyclidine): 25 ng/mL, PPX (Propoxyphene): 300 ng/mL, THC (Cannabinoids): 50 ng/mL, TCA (Trycyclic Antidepressants): 300 ng/mL Performed By: #### H H #### [facility] [address] [place] [address] Dr. Valerio Alexis DRUG CUT HEADER DRUG CLASS TEST SYSTEM CUT-OFF CONCENTRATIONS ARE FOLLOWS: Normal [facility] Comment on above: Performed By: #### H H #### [facility] [address] [place] [address] Dr. Valerio Alexis mAMP Negative Normal NEGATIVE [facility] Comment on above: Performed By: #### H H #### [facility] [address] [place] [address] Dr. Valerio Alexis MTD Negative Normal NEGATIVE [facility] Comment on above: Performed By: #### H H #### [facility] [address] [place] [address] Dr. Valerio Alexis OPI Negative Normal NEGATIVE [facility] Comment on above: Performed By: #### H H #### [facility] [address] [place] [address] Dr. Valerio Aelxis OXY Negative Normal NEGATIVE [facility] Comment on above: Performed By: #### H H #### [facility] [address] [place] [address] Dr. Valerio Alexis PCP Negative Normal NEGATIVE [facility] Comment on above: Performed By: #### H H #### [facility] [address] [place] [address] Dr. Valerio Alexis PPX Negative Normal NEGATIVE [facility] Comment on above: Performed By: #### H H #### [facility] [address] [address] [address] Valerio Alexis TCA Negative Normal NEGATIVE [facility] Comment on above: Performed By: #### H H #### [facility] [address] [place] [address] Dr. Valerio Alexis THC Negative Normal NEGATIVE [facility] Comment on above: Performed By: #### H H #### [facility] [address] [place] [address] Dr. Valerio Alexis TYPE AND SCREENon 08-24-2022 TYPE AND SCREEN Negative Normal [facility] Comment on above: Performed By: #### T NS #### [facility] [address] [place] [address] Dr. Valerio Alexis US PREG BIOPHY W NON STRESSo n 08-22-2022 US PREG BIOPHY W NON STRESS EXAMINATION: US PREG BIOPHY W NON STRESS HISTORY: [id number] baby COMPARISON: 08/16/2022 TECHNIQUE: Ultrasound biophysical profile was performed in the radiology department. FINDINGS: BREATHING MOVEMENTS: 2.0 GROSS BODY MOVEMENTS: 2.0 TONE: 2.0 QUALITATIVE AMNIOTIC FLUID VOLUME: 2.0 PRESENTATION: Cephalic HEART RATE: 137.8 bpm H.B./min AMNIOTIC FLUID VOLUME: 10.3 cm cm GESTATIONAL AGE: 38 weeks 5 days CONCLUSION: Total biophysical profile score: 8.0 Electronically authenticated by: LEE CLAY Date: 2022-08-22 13:46 Normal [facility] US PREG UMBILICAL ARTERYon 1 10-22-2021 US PREG UMBILICAL ARTERY EXAMINATION: US PREG UMBILICAL ARTERY HISTORY: [id number]-[id number] baby COMPARISON: No relevant comparison available. TECHNIQUE: [...] by: LEE CLAY Date: 2022-08-22 13:48 Normal [facility] US PREG BIOPHY W NON STRESSo n 08-17-2022 US PREG BIOPHY W NON STRESS EXAMINATION: US PREG BIOPHY W NON STRESS HISTORY: [id number] baby COMPARISON: Ultrasound biophysical 08/15/2022 TECHNIQUE: Ultrasound biophysical profile was performed. FINDINGS: IMPRESSION: BREATHING MOVEMENTS: 2.0 GROSS BODY MOVEMENTS: 2.0 TONE: 2.0 QUALITATIVE AMNIOTIC FLUID VOLUME: 2.0 PRESENTATION: Cephalic HEART RATE: 142.9 bpm bpm. AMNIOTIC FLUID VOLUME: 12.7 cm GESTATIONAL AGE: 37 weeks 6 days CONCLUSION: Total biophysical profile score 8.0. Electronically authenticated by: TEAGAN ENRIQUE Date: 2022-08-17 06:47 Normal [facility] US PREG BIOPHY W NON STRESSo n [...] by: LEE CLAY Date: 2022-08-15 16:37 Normal [facility] US PREG UMBILICAL ARTERYon 1 10-15-2021 US PREG UMBILICAL ARTERY EXAM: US PREG UMBILICAL ARTERY HISTORY: [id number]-[id number] baby EXAMINATION: US PREG UMBILICAL ARTERY HISTORY: [id number]-[id number] baby COMPARISON: No relevant comparison available. TECHNIQUE: [...] by: LEE CLAY Date: 2022-08-15 16:55 Normal [facility] US PREG BIOPHY W NON STRESSo n [...] by: LEE CLAY Date: 2022-08-08 16:59 Normal [facility] US PREG UMBILICAL ARTERYon 1 10-08-2021 US PREG UMBILICAL ARTERY EXAM: US PREG UMBILICAL ARTERY HISTORY: [id number] baby COMPARISON: 08/01/2022 TECHNIQUE: Grayscale, color and [...] LEE CLAY Date: 2022-08-08 17:03 Normal [facility] BUNon 08-05-2022 Urea nitrogen [Mass/Vol] 11.0 mg/dL Normal 7.0-18.0 [facility] Comment on above: Performed By: #### N BOX #### [facility] [address] [place] [address] Dr. Valerio Alexis CBC AUTO DIFFon 08-05-2022 BASO # 0.0 103/ul Normal 0.0-0.1 [facility] Comment on above: Performed By: #### N BOX #### [facility] [address] [place] [address] Dr. Valerio Alexis Basophils/100 WBC (Bld) 0.3 % Normal 0.2-2.0 [facility] Comment on above: Performed By: #### N BOX #### [facility] [address] [place] [address] Dr. Valerio Alexis EO # 0.0 103/ul Normal 0.0-0.7 [facility] Comment on above: Performed By: #### N BOX #### [facility] [address] [place] [address] Dr. Valerio Alexis Eosinophils/100 WBC (Bld) 0.3 % Critically low 0.9-7.0 [facility] Comment on above: Performed By: #### N BOX #### [facility] [address] [place] [address] Dr. Valerio Alexis Erythrocyte distribution width (RBC) [Ratio] 12.9 % Normal 11.0-15.0 [facility] Comment on above: Performed By: #### N BOX #### [facility] [address] [place] [address] Dr. Valerio Alexis Hematocrit (Bld) [Volume fraction] 33.3 % Critically low 36.0-48.0 [facility] Comment on above: Performed By: #### N BOX #### [facility] [address] [place] [address] Dr. Valerio Alexis Hemoglobin (Bld) [Mass/Vol] 11.0 g/dL Critically low 12.0-16.0 [facility] Comment on above: Performed By: #### N BOX #### [facility] [address] [address] [address] Valerio Alexis IG # 0.14 10e3/ul Critically high 0.00-0.03 [facility] Comment on above: Performed By: #### N BOX #### [facility] [address] [address] [address] Valerio Alexis IG % 0.9 % Critically high 0.0-0.5 [facility] Comment on above: Performed By: #### N BOX #### [facility] [address] [address] [address] Valerio Alexis LYMPH # 1.4 103/ul Normal 1.2-3.8 [facility] Comment on above: Performed By: #### N BOX #### [facility] [address] [place] [address] Dr. Valerio Alexis Lymphocytes/100 WBC (Bld) 8.8 % Critically low 20.5-60.0 [facility] Comment on above: Performed By: #### N BOX #### [facility] [address] [address] [address] Valerio Alexis MANUAL DIFF REQ NO Normal [facility] Comment on above: Performed By: #### N BOX #### [facility] [address] [place] [address] Dr. Valerio Alexis MCH (RBC) [Entitic mass] 27.8 pg Normal 26.7-34.0 [facility] Comment on above: Performed By: #### N BOX #### [facility] [address] [address] [address] Valerio Alexis MCHC (RBC) [Mass/Vol] 33.0 g/dL Normal 29.9-35.2 [facility] Comment on above: Performed By: #### N BOX #### [facility] [address] [address] [address] Valerio Alexis MCV (RBC) [Entitic vol] 84.3 fL Normal 81.0-99.0 [facility] Comment on above: Performed By: #### N BOX #### [facility] [address] [address] [address] Valerio Alexis MONO # 1.1 103/ul Critically high 0.3-0.8 [facility] Comment on above: Performed By: #### N BOX #### [facility] [address] [address] [address] Valerio Alexis Monocytes/100 WBC (Bld) 7.0 % Normal 1.7-12.0 [facility] Comment on above: Performed By: #### N BOX #### [facility] [address] [address] [address] Valerio Alexis NEUT # 13.1 103/ul Critically high 1.4-6.5 [facility] Comment on above: Performed By: #### N BOX #### [facility] [address] [place] [address] Dr. Valerio Alexis Neutrophils/100 WBC (Bld) 82.7 % Critically high 43.0-75.0 [facility] Comment on above: Performed By: #### N BOX #### [facility] [address] [place] [address] Dr. Valerio Alexis Platelet mean volume (Bld) [Entitic vol] 10.8 fL Normal 9.5-13.5 [facility] Comment on above: Performed By: #### N BOX #### [facility] [address] [place] [address] Dr. Valerio Alexis PLT 202 103/ul Normal 150-450 [facility] Comment on above: Performed By: #### N BOX #### [facility] [address] [address] [address] Valerio Alexis RBC 3.95 106/ul Critically low 4.20-5.40 [facility] Comment on above: Performed By: #### N BOX #### [facility] [address] [place] [address] Dr. Valeiro Alexis WBC 15.9 103/ul Critically high 4.0-11.0 [facility] Comment on above: Performed By: #### N BOX #### [facility] [address] [place] [address] Dr. Valerio Alexis CREATININEon 08-05-2022 Creatinine [Mass/Vol] 0.64 mg/dL Normal 0.55-1.02 [facility] Comment on above: Performed By: #### N BOX #### [facility] [address] [place] [address] Dr. Valerio Alexis EGFR-AF CYPRIOT >60 Normal >=60 [facility] Comment on above: Performed By: #### N BOX #### [facility] [address] [place] [address] Dr. Valerio Alexis EGFR-NON AF CYPRIOT >60 Normal >=60 [facility] Comment on above: Performed By: #### N BOX #### [facility] [address] [place] [address] Dr. Valerio Alexis CULTURE URINEon 08-05-2022 CULTURE URINE Culture Observations: LIGHT GROWTH OF MIXED GENITAL RICK. NO POTENTIAL PATHOGENS SEEN. Normal [facility] Comment on above: Performed By: #### N BOX #### [facility] [address] [place] [address] Dr. Valerio Alexis UA (CLEAN/CATCH) COMPENSATION VICE PRESIDENT/MICRO I F IND.on 08-05-2022 Bilirubin Ql (U) Negative Normal NEGATIVE [facility] Comment on above: Performed By: #### N BOX #### [facility] [address] [place] [address] Dr. Valerio Alexis Clarity (U) CLEAR Normal CLEAR [facility] Comment on above: Performed By: #### N BOX #### [facility] [address] [place] [address] Dr. Valerio Alexis Color (U) LT. YELLOW Normal YELLOW [facility] Comment on above: Performed By: #### N BOX #### [facility] [address] [place] [address] Dr. Valerio Alexis Glucose Ql (U) Negative Normal NEGATIVE [facility] Comment on above: Performed By: #### N BOX #### [facility] [address] [place] [address] Dr. Valerio Alexis Hemoglobin Ql (U) LARGE Abnormal NEGATIVE [facility] Comment on above: Performed By: #### N BOX #### [facility] [address] [place] [address] Dr. Valerio Alexis Ketones Ql (U) Negative Normal NEGATIVE The [facility] Comment on above: Performed By: #### N BOX #### [facility] [address] [place] [address] Dr. Valerio Alexis LEUKOCYTES SMALL Abnormal NEGATIVE [facility] Comment on above: Performed By: #### N BOX #### [facility] [address] [place] [address] Dr. Valerio Alexis Nitrite Ql (U) Positive Abnormal NEGATIVE [facility] Comment on above: Performed By: #### N BOX #### [facility] [address] [place] [address] Dr. Valerio Alexis pH (U) 6.5 [pH] Normal 5-9 [facility] Comment on above: Performed By: #### N BOX #### [facility] [address] [place] [address] Dr. Valerio Alexis SPEC GRAVITY 1.020 Normal 1.005-<=1.025 [facility] Comment on above: Performed By: #### N BOX #### [facility] [address] [place] [address] Dr. Valerio Alexis UA PROTEIN 30 mg/dl Abnormal NEGATIVE/ TRACE [facility] Comment on above: Performed By: #### N BOX #### [facility] [address] [place] [address] Dr. Valerio Alexis UR MICRO IND INDICATED Normal [facility] Comment on above: Performed By: #### N BOX #### [facility] [address] [place] [address] Dr. Valerio Alexis Urobilinogen Qn (U) 0.2 {Nicolas'U}/dL Normal 0.2 - 1. 0 [facility] Comment on above: Performed By: #### N BOX #### [facility] [address] [place] [address] Dr. Valerio Alexis URINE MICROSCOPIC ONLYon BACTERIA TRACE Abnormal NONE SEEN [facility] Comment on above: Performed By: #### N BOX #### [facility] [address] [place] [address] Dr. Valerio Alexis Bacteria identified Cx Nom (U) INDICATED Normal [facility] Comment on above: Performed By: #### N BOX #### [facility] [address] [place] [address] Dr. Valerio Alexis CAST NONE SEEN Normal NONE SEEN [facility] Comment on above: Performed By: #### N BOX #### [facility] [address] [place] [address] Dr. Valerio Alexis Crystals LM Nom (Urine sed) NONE SEEN Normal NONE SEEN [facility] Comment on above: Performed By: #### N BOX #### [facility] [address] [place] [address] Dr. Valerio Alexis Epithelial cells LM Ql (Urine sed) RARE Normal NONE SEEN /RARE [facility] Comment on above: Performed By: #### N BOX #### [facility] [address] [place] [address] Dr. Valerio Alexis MUCOUS NONE SEEN Normal NONE SEEN [facility] Comment on above: Performed By: #### N BOX #### [facility] [address] [place] [address] Dr. Valerio Alexis RBC NONE SEEN Abnormal 0-2 [facility] Comment on above: Performed By: #### N BOX #### [facility] [address] [place] [address] Dr. Valerio Alexis WBC 5-10 Abnormal NONE SEEN [facility] Comment on above: Performed By: #### N BOX #### [facility] [address] [place] [address] Dr. Valerio Alexis GROUP B STREP CULTUREon S. agalactiae Ag Ql (Unsp spec) Culture Observations: NEGATIVE FOR GROUP B STREPTOCOCCUS. Normal [facility] Comment on above: Performed By: #### G BSCX #### [facility] [address] [place] [address] Dr. Valerio Alexis US PREG BIOPHY W [...] by: TEAGAN ENRIQUE Date: 2022-08-02 05:48 Normal [facility] US PREG UMBILICAL ARTERYon 1 10-02-2021 US PREG UMBILICAL ARTERY EXAMINATION: US PREG UMBILICAL ARTERY HISTORY: [id number] baby COMPARISON: Ultrasound umbilical artery 07/28/2022 TECHNIQUE: [...] by: TEAGAN ENRIQUE Date: 2022-08-02 05:54 Normal [facility] US PREG BIOPHYSICAL NO NSTon [...] by: TEAGAN ENRIQUE Date: 2022-07-28 16:40 Normal [facility] US PREG GROWTHon 07-28-2022 US PREG GROWTH [...] 3. Dr. Harding was notified by the advertising agent at time of imaging. Electronically authenticated by: TEAGAN ENRIQUE Date: 2022-07-28 16:48 Normal [facility] US PREG UMBILICAL ARTERYon 1 US PREG [...] by: TEAGAN ENRIQUE Date: 2022-07-28 13:25 Normal [facility] US PREG BIOPHY W NON STRESSo n [...] by: TEAGAN ENRIQUE Date: 2022-07-26 16:06 Normal [facility] US PREG BIOPHY W NON STRESS EXAMINATION: [...] by: LEE CLAY Date: 2022-07-26 07:14 Normal [facility] US PREG BIOPHY W NON STRESSo n [...] by: TEAGAN ENRIQUE Date: 2022-07-19 20:21 Normal [facility] US PREG GROWTHon 07-13-2022 US PREG GROWTH [...] Dr. Harding notified of low weight by advertising agent at time of imaging. Electronically authenticated by: TEAGAN ENRIQUE Date: 2022-07-12 22:01 Normal [facility] GLUCOSE - 1HRon 05-31-2022 Glucose [Mass/Vol] 110 mg/dL Critically high 74-106 [facility] Comment on above: Performed By: #### R PRQ #### [facility] [address] [address] [address] Valerio Alexis HEMOGRAM AND PLATELon 2021 Hematocrit (Bld) [Volume fraction] 31.6 % Critically low 36.0-48.0 [facility] Comment on above: Performed By: #### H H #### [facility] [address] [address] [address] Valerio Alexis Hemoglobin (Bld) [Mass/Vol] 10.7 g/dL Critically low 12.0-16.0 [facility] Comment on above: Performed By: #### H H #### [facility] [address] [address] [address] Valerio Alexis MCH (RBC) [Entitic mass] 29.7 pg Normal 26.7-34.0 [facility] Comment on above: Performed By: #### H H #### [facility] [address] [address] [address] Valerio Alexis MCHC (RBC) [Mass/Vol] 33.9 g/dL Normal 29.9-35.2 [facility] Comment on above: Performed By: #### H H #### [facility] [address] [address] [address] Valerio Alexis MCV (RBC) [Entitic vol] 87.8 fL Normal 81.0-99.0 [facility] Comment on above: Performed By: #### H H #### [facility] [address] [address] [address] Valerio Alexis PLT 179 103/ul Normal 150-450 [facility] Comment on above: Performed By: #### H H #### [facility] [address] [place] [address] Dr. Valerio Alexis RBC 3.60 106/ul Critically low 4.20-5.40 [facility] Comment on above: Performed By: #### H H #### [facility] [address] [address] [address] Valerio Alexis WBC 8.9 103/ul Normal 4.0-11.0 [facility] Comment on above: Performed By: #### H H #### [facility] [address] [place] [address] Dr. Valerio Alexis CHLAMYDIA/GONOCOCCUS CHULA ( AB/URINE/PAPon 05-21-2022 Chlamydia trachomatis, CHULA Negative Normal Negative [facility] Comment on above: Performed By: #### R PRQ #### [facility] [address] [place] [address] Dr. Valerio Alexis Neisseria gonorrhoeae, CHULA Negative Normal Negative [facility] Comment on above: Performed By: #### R PRQ #### [facility] [address] [place] [address] Dr. Valerio Alexis VAGINITIS/VAGINOSIS DNA PROB Dane 05-21-2022 Ashley species Negative Normal Negative [facility] Comment on above: Performed By: #### H IV12 #### [facility] [address] [place] [address] Dr. Valerio Alexis Gardnerella vaginalis Positive Abnormal Negative [facility] Comment on above: Performed By: #### H IV12 #### [facility] [address] [place] [address] Dr. Valerio Alexis Trichomonas vaginalis Negative Normal Negative [facility] Comment on above: Performed By: #### H IV12 #### [facility] [address] [address] [address] Valerio Alexis HEPATITIS PANEL, ACUTEon HBsAg Screen Negative Normal Negative [facility] Comment on above: Performed By: #### R PRQ #### [facility] [address] [place] [address] Dr. Valerio Alexis HCV AB <0.1 Normal 0.0-0.9 [facility] Comment on above: Performed By: #### R PRQ #### [facility] [address] [place] [address] Dr. Valerio Alexis Hep A Ab, IgM Negative Normal Negative [facility] Comment on above: Performed By: #### R PRQ #### [facility] [address] [place] [address] Dr. Valerio Alexis Hep B Core Ab, IgM Negative Normal Negative [facility] Comment on above: Performed By: #### R PRQ #### [facility] [address] [place] [address] Dr. Valerio Alexis Interpretation: Comment Normal [facility] Comment on above: Result Comment: Nega tive Not infected with HCV, unless recent infection is suspected or other evidence exists to indicate HCV infection. Performed By: #### R PRQ #### [facility] [address] [place] [address] Dr. Valerio Alexis HIV 1 AND 2 WITH REFLEXon HIV Screen 4th Generation wRfx Non-Reactive Normal Non Reactive [facility] Comment on above: Result Comment: HIV Negative HIV-1/HIV-2 antibodies and HIV-1 p24 antigen were NOT detected. There is no laboratory evidence of HIV infection. Performed By: #### N BOX #### [facility] [address] [place] [address] Dr. Valerio Alexis RPR QUANTon 05-20-2022 Rapid Plasma Reagin, Quant Non-Reactive Normal NonRea<1:1 [facility] Comment on above: Result Comment: Plea se Note: This test does not meet current guidelines for screening and diagnosis of syphilis. This test is intended for following treatment response in patients being treated for syphilis infection. To screen for syphilis infection, a reflex cascade that includes both RPR and a treponema-specific assay should be utilized, such as Treponema pallidum (Syphilis) Screening [place] (463830) or Rapid Plasma Reagin (RPR) Test With Reflex to Quantitative RPR and Confirmatory Treponema pallidum Antibodies (460886). Performed By: #### R PRQ #### [facility] [address] [address] [address] Valerio Alexis CULTURE URINEon 05-19-2022 CULTURE URINE Culture Observations: HEAVY GROWTH OF MIXED GENITAL RICK. NO POTENTIAL PATHOGENS SEEN. Normal [facility] Comment on above: Performed By: #### U RCX #### [facility] [address] [address] [address] Valerio Alexis CULTURE URINEon 05-18-2022 CULTURE URINE Culture Observations: LIGHT GROWTH OF MIXED GENITAL RICK. NO POTENTIAL PATHOGENS SEEN. Normal [facility] Comment on above: Performed By: #### U RCX #### [facility] [address] [address] [address] Valerio Alexis AFP MATERNAL FOR SPINA BIFID Aon 04-30-2022 AFP MoM 1.13 Normal [facility] Comment on above: Performed By: #### R PRQ #### [facility] [address] [address] [address] Valerio Alexis AFP Value 94.7 ng/mL Normal [facility] Comment on above: Performed By: #### R PRQ #### [facility] [address] [address] [address] Valerio Alexis AFP, Serum for Spina Bifida Report Normal [facility] Comment on above: Performed By: #### R PRQ #### [facility] [address] [place] [address] Dr. Valerio Alexis Comment Comment Normal [facility] Comment on above: Result Comment: Willa Domínguez, Ph.D., [facility] Director . References: Available Upon Request. . Multiples Of Median Cutoffs For AFP Elevations Cuenca 2.5 Black 2.8 IDD 2.0 Twins 4.5 Abbreviation Definitions IDD - Insulin Dep Diabetes OSBR - Open Spina Bifida Risk . For further inquiries contact [facility] at [phone]. . This test was developed and its performance characteristics determined by [employer]. It has not been cleared or approved by the Food and Drug Administration. Performed By: #### R PRQ #### [facility] [address] [place] [address] Dr. Valerio Georges Age Collection Date 20.9 weeks Normal [facility] Comment on above: Performed By: #### R PRQ #### [facility] [address] [address] [address] Valerio Alexis Gestat, Age Based on JOSE Normal [facility] Comment on above: Result Comment: 08/04 Recalculations are not recommended when gestational dating by LMP and ultrasound are within 10 days. Performed By: #### R PRQ #### [facility] [address] [place] [address] Dr. Valerio Alexis Insulin Dep Diabetes No Normal [facility] Comment on above: Performed By: #### R PRQ #### [facility] [address] [place] [address] Dr. Valerio Alexis Interpretation Comment Normal [facility] Comment on above: Result Comment: Inte [...] Customer Services to discuss available options. The [employer] recommends amniocentesis be offered to women age 35 and older. Performed By: #### R PRQ #### [facility] [address] [place] [address] Dr. Valerio Alexis [age] Normal [facility] Comment on above: Performed By: #### R PRQ #### [facility] [address] [place] [address] Dr. Valerio Alexis Multiple Gestation No Normal [facility] Comment on above: Performed By: #### R PRQ #### [facility] [address] [address] [address] Valerio Alexis OSBR Risk 1 IN 8106 Normal [facility] Comment on above: Performed By: #### R PRQ #### [facility] [address] [address] [address] Valerio Alexis PDF . [facility] Comment on above: Performed By: #### R PRQ #### [facility] [address] [address] [address] Valerio Alexis Race Normal [facility] Comment on above: Performed By: #### R PRQ #### [facility] [address] [address] [address] Valerio Alexis Test Results: Negative [facility] Comment on above: Performed By: #### R PRQ #### [facility] [address] [address] [address] Valerio Alexis US PREG ANATOMY SINGLEon [...] TEAGAN ENRIQUE Date: 2022-04-20 20:07 Normal [facility] CHLAMYDIA/GONOCOCCUS CHULA (SW AB/URINE/PAPon 03-26-2022 Chlamydia trachomatis, CHULA Negative Normal Negative [facility] Comment on above: Performed By: #### R PRQ #### [facility] [address] [place] [address] Dr. Valerio Alexis Neisseria gonorrhoeae, CHULA Negative Normal Negative [facility] Comment on above: Performed By: #### R PRQ #### [facility] [address] [place] [address] Dr. Valerio Alexis VAGINITIS/VAGINOSIS DNA PROB Dane 03-25-2022 Ashley species Positive Abnormal Negative [facility] Comment on above: Performed By: #### R PRQ #### [facility] [address] [place] [address] Dr. Valerio Alexis Gardnerella vaginalis Positive Abnormal Negative [facility] Comment on above: Performed By: #### R PRQ #### [facility] [address] [place] [address] Dr. Valerio Alexis Trichomonas vaginalis Negative Normal Negative [facility] Comment on above: Performed By: #### R PRQ #### [facility] [address] [place] [address] Dr. Valerio Alexis Covid-19 PCR (CVDTB)on 01-31 SARS-CoV-2 (COVID-19) RNA CHULA+probe Ql (Unsp spec) Detected Critically abnormal NOT DETECTED [facility] Comment on above: Result Comment: This test is not yet approved or cleared by the [place] FDA. When there are no FDA-approved or cleared tests available, and other criteria are met, FDA can make tests available under an emergency access mechanism called an Emergency Use Authorization (EUA). The EUA for this test is supported by the [employer] of Health and Human Service's declaration that [...] used). Performed By: #### C VDTB #### [facility] [address] [place] [address] Dr. Valerio Alexis US PREG TVon 02-16-2022 [...] TEAGAN ENRIQUE Date: 2022-02-16 13:14 Normal [facility] CHEMISTRYOrdered By: Roberto Garsia on 02-15-2022 HCG.beta subunit Qn [id number] m[IU]/mL High 1 - 3 mIU/m [place] [facility] [place] HEP B SURFACE ANTIGEN SCREEN on 02-12-2022 HBsAg Screen Negative Normal Negative [facility] Comment on above: Performed By: #### H H #### [facility] [address] [place] [address] Dr. Valerio Alexis HEPATITIS C VIRUS AB W/ REFL EX QUANTon 02-12-2022 HCV AB 0.1 s/co ratio Normal 0.0-0.9 The [facility] Comment on above: Performed By: #### H H #### [facility] [address] [place] [address] Dr. Valerio Alexis Interpretation: Comment Normal [facility] Comment on above: Result Comment: Nega tive Not infected with HCV, unless recent infection is suspected or other evidence exists to indicate HCV infection. Performed By: #### H H #### [facility] [address] [address] [address] Valerio Alexis HIV 1 AND 2 WITH REFLEXon HIV Screen 4th Generation wRfx Non-Reactive Normal Non Reactive [facility] Comment on above: Result Comment: HIV Negative HIV-1/HIV-2 antibodies and HIV-1 p24 antigen were NOT detected. There is no laboratory evidence of HIV infection. Performed By: #### H IV12 #### [facility] [address] [place] [address] Dr. Valerio Alexis RPR QUANTon 02-12-2022 Rapid Plasma Reagin, Quant Non-Reactive Normal NonRea<1:1 [facility] Comment on above: Result Comment: Plea se Note: This test does not meet current guidelines for screening and diagnosis of syphilis. This test is intended for following treatment response in patients being treated for syphilis infection. To screen for syphilis infection, a reflex cascade that includes both RPR and a treponema-specific assay should be utilized, such as Treponema pallidum (Syphilis) Screening [place] (982337) or Rapid Plasma Reagin (RPR) Test With Reflex to Quantitative RPR and Confirmatory Treponema pallidum Antibodies (734532). Performed By: #### U RCX #### [facility] [address] [place] [address] Dr. Valerio Alexis RUBELLA AB IGGon 02-12-2022 Rubella Antibodies, IgG 1.88 index Normal Immune >0.99 [facility] Comment on above: Result Comment: Non- immune <0.90 Equivocal 0.90 - 0.99 Immune >0.99 Performed By: #### H H #### [facility] [address] [place] [address] Dr. Valerio Alexis CBC AUTO DIFFon 02-11-2022 BASO # 0.0 103/ul Normal 0.0-0.1 [facility] Comment on above: Performed By: #### H H #### [facility] [address] [address] [address] Valerio Alexis Basophils/100 WBC (Bld) 0.3 % Normal 0.2-2.0 [facility] Comment on above: Performed By: #### H H #### [facility] [address] [address] [address] Valerio Alexis EO # 0.1 103/ul Normal 0.0-0.7 [facility] Comment on above: Performed By: #### H H #### [facility] [address] [address] [address] Valerio Alexis Eosinophils/100 WBC (Bld) 0.9 % Normal 0.9-7.0 [facility] Comment on above: Performed By: #### H H #### [facility] [address] [address] [address] Valerio Alexis Erythrocyte distribution width (RBC) [Ratio] 12.8 % Normal 11.0-15.0 [facility] Comment on above: Performed By: #### H H #### [facility] [address] [address] [address] Valerio Alexis Hematocrit (Bld) [Volume fraction] 37.6 % Normal 36.0-48.0 [facility] Comment on above: Performed By: #### H H #### [facility] [address] [address] [address] Valerio Alexis Hemoglobin (Bld) [Mass/Vol] 12.5 g/dL Normal 12.0-16.0 [facility] Comment on above: Performed By: #### H H #### [facility] [address] [address] [address] Vlaerio Alexis IG # 0.04 10e3/ul Critically high 0.00-0.03 [facility] Comment on above: Performed By: #### H H #### [facility] [address] [address] [address] Valerio Alexis IG % 0.6 % Critically high 0.0-0.5 [facility] Comment on above: Performed By: #### H H #### [facility] [address] [place] [address] Dr. Valerio Alexis LYMPH # 1.5 103/ul Normal 1.2-3.8 [facility] Comment on above: Performed By: #### H H #### [facility] [address] [place] [address] Dr. Valerio Alexis Lymphocytes/100 WBC (Bld) 21.9 % Normal 20.5-60.0 [facility] Comment on above: Performed By: #### H H #### [facility] [address] [place] [address] Dr. Valerio Alexis MANUAL DIFF REQ NO Normal [facility] Comment on above: Performed By: #### H H #### [facility] [address] [place] [address] Dr. Valerio Alexis MCH (RBC) [Entitic mass] 29.0 pg Normal 26.7-34.0 [facility] Comment on above: Performed By: #### H H #### [facility] [address] [place] [address] Dr. Valerio Alexis MCHC (RBC) [Mass/Vol] 33.2 g/dL Normal 29.9-35.2 [facility] Comment on above: Performed By: #### H H #### [facility] [address] [place] [address] Dr. Valerio Alexis MCV (RBC) [Entitic vol] 87.2 fL Normal 81.0-99.0 [facility] Comment on above: Performed By: #### H H #### [facility] [address] [place] [address] Dr. Valerio Alexis MONO # 0.5 103/ul Normal 0.3-0.8 [facility] Comment on above: Performed By: #### H H #### [facility] [address] [place] [address] Dr. Valerio Alexis Monocytes/100 WBC (Bld) 6.7 % Normal 1.7-12.0 [facility] Comment on above: Performed By: #### H H #### [facility] [address] [place] [address] Dr. Valerio Alexis NEUT # 4.9 103/ul Normal 1.4-6.5 [facility] Comment on above: Performed By: #### H H #### [facility] [address] [address] [address] Valerio Alexis Neutrophils/100 WBC (Bld) 69.6 % Normal 43.0-75.0 [facility] Comment on above: Performed By: #### H H #### [facility] [address] [place] [address] Dr. Valerio Alexis Platelet mean volume (Bld) [Entitic vol] 10.8 fL Normal 9.5-13.5 [facility] Comment on above: Performed By: #### H H #### [facility] [address] [place] [address] Dr. Valerio Alexis PLT 183 103/ul Normal 150-450 [facility] Comment on above: Performed By: #### H H #### [facility] [address] [place] [address] Dr. Valerio Alexis RBC 4.31 106/ul Normal 4.20-5.40 [facility] Comment on above: Performed By: #### H H #### [facility] [address] [place] [address] Dr. Valerio Alexis WBC 7.0 103/ul Normal 4.0-11.0 [facility] Comment on above: Performed By: #### H H #### [facility] [address] [place] [address] Dr. Valerio Alexis CULTURE URINEon 02-11-2022 CULTURE URINE Culture Observations: NO GROWTH. Normal [facility] Comment on above: Performed By: #### U RCX #### [facility] [address] [place] [address] Dr. Valerio Alexis GLYCOHEMOGLOBIN A1Con 2021 ADA RECOMMENDATION SEE BELOW Normal [facility] Comment on above: Result Comment: ADA RECOMMENDED LIMIT 4.0 - 6.0 ADA THERAPEUTIC TARGET < 7.0 ACTION SUGGESTED > 7.0 Performed By: #### H H #### [facility] [address] [address] [address] Valerio Alexis Glucose [Mass/Vol] 88 mg/dL Normal [facility] Comment on above: Performed By: #### H H #### [facility] [address] [address] [address] Valerio Alexis HbA1c (Bld) [Mass fraction] 4.7 % Normal 4.5-6.2 [facility] Comment on above: Performed By: #### H H #### [facility] [address] [address] [address] Valerio Alexis ASTER BOX TEST PT SEND OUTo n 02-11-2022 SENT TO REF LAB 02/11/2022 Normal [facility] Comment on above: Performed By: #### N BOX #### [facility] [address] [place] [address] Dr. Valerio Alexis TYPE AND SCREENon 02-11-2022 TYPE AND SCREEN Negative Normal [facility] Comment on above: Performed By: #### N BOX #### [facility] [address] [place] [address] Dr. Valerio Alexis US PREG TVon 01-26-2022 [...] by: TEAGAN ENRIQUE Date: 2022-01-26 09:46 Normal [facility] PROGRESSon 11-20-2019 PROGRESS HNO ID: [id number] Author: Jose Luis Quispe Service: ? Author Type: HEAD OF OPERATION AND LOGISTICS Type: Progress Notes Filed: 11/20/2019 4:36 PM [...] with all of its relevant components. Normal [facility] TSHon 06-11-2018 Thyrotropin Qn 3.104 uIU/mL Normal 0.350-5.500 [facility] Comment on above: Performed By: #### T SH ####[facility] [address] [phone] Comp Metabolic Panelon 06-09 Albumin mass conc 4.6 g/dL High 3.2-4.5 [facility] Comment on above: Performed By: #### C MP ####[facility] [address] [phone] ALP enzyme act/vol 75 U/L Normal 47-119 [facility] Comment on above: Performed By: #### C MP ####[address] [phone] ALT enzyme act/vol 11 U/L Normal 0-31 [facility] Comment on above: Performed By: #### C MP ####[address] [phone] AST enzyme act/vol 14 U/L Normal 0-31 [facility] Comment on above: Performed By: #### C MP ####[address] [phone] Bili,Total 0.8 mg/dl Normal 0.0-1.0 [facility] Comment on above: Result Comment: Gama ature : 1 Day 1.0-6.0 mg/dl 2 Day 6.0-8.0 mg/dl 3-5 Day 10.0-15.0 mg/dl Performed By: #### C MP ####[address] [phone] Calcium mass conc 9.8 mg/dL Normal 7.6-11.0 [facility] Comment on above: Performed By: #### C MP ####[address] [phone] Chloride molar conc 105 mmol/L Normal 96-108 [facility] Comment on above: Performed By: #### C MP ####[address] [phone] CO2 molar conc 26.2 mmol/L Normal 22.0-29.0 [facility] Comment on above: Performed By: #### C MP ####[address] [phone] Creatinine mass conc 0.82 mg/dL Normal 0.50-1.00 [facility] Comment on above: Result Comment: Gama ature 0.3-1.0 mg/dL Performed By: #### C MP ####[address] [phone] Glucose mass conc 89 mg/dL Normal 70-99 [facility] Comment on above: Result Comment: Henry simental for Diagnosis of Diabetes(Effective 03/07/11):Fasting specimen (no caloric intake for at least 8 hours). <100 mg/dl Normal 100-125 mg/dl Increased Risk for Diabetes >125 mg/dl Diagnostic for DiabetesRandom Glucose (any time of day without regard to last meal). >=200 mg/dl plus Classic Symptoms of Diabetes Performed By: #### C MP ####[address] [phone] Potassium molar conc 3.8 mmol/L Normal 3.3-5.1 [facility] Comment on above: Performed By: #### C MP ####[address] [phone] Protein mass conc 8.1 g/dL Normal 5.9-8.4 [facility] Comment on above: Performed By: #### C MP ####[address] [phone] Sodium molar conc 138 mmol/L Normal 133-145 [facility] Comment on above: Performed By: #### C MP ####[address] [phone] Urea nitrogen mass conc 10 mg/dL Normal 4-19 [facility] Comment on above: Performed By: #### C MP ####[address] [phone] Complete Blood Counton 06-09 Differential Complete Manual Normal [facility] Comment on above: Performed By: #### C BC ####[address] [phone] Erythrocyte distribution width Auto Ratio (RBC) 12.7 % Normal 0.0-14.4 [facility] Comment on above: Performed By: #### C BC ####[address] [phone] Hematocrit Auto Volume Fraction (Bld) 45.1 % Normal 37.0-46.0 [facility] Comment on above: Performed By: #### C BC ####[address] [phone] Hemoglobin mass conc (Bld) 15.2 g/dL High 12.0-15.0 [facility] Comment on above: Performed By: #### C BC ####[address] [phone] Immature granulocytes/100 WBC (Bld) 0.30 % Normal [facility] Comment on above: Result Comment: Sherice ture Granulocyte Percent includes promyelocytes, myelocytes,and metamyelocytes. IG% > 1.0 indicates a left shift ispresent. With automated differentials, bands are includedin the neutrophil count and not in the Immature GranulocytePercent. Performed By: #### C BC ####[address] [phone] MCH Auto Entitic mass (RBC) 29.2 pg Normal 25.0-35.0 [facility] Comment on above: Performed By: #### C BC ####[address] [phone] MCHC Auto mass conc (RBC) 33.7 % Normal 31.0-37.0 [facility] Comment on above: Performed By: #### C BC ####[address] [phone] MCV Auto Entitic volume (RBC) 86.6 fL Normal 78.0-96.0 [facility] Comment on above: Performed By: #### C BC ####[address] [phone] Nucleated RBC/100 WBC Ratio (Bld) 0.0 % Normal -1.0-0.0 [facility] Comment on above: Performed By: #### C BC ####[address] [phone] Platelet mean volume Auto Entitic volume (Bld) 10.5 fL Normal [facility] Comment on above: Result Comment: MPV is plateletrange and agedependent Performed By: #### C BC ####[address] [phone] Platelets Auto #/vol (Bld) 200 10*3/uL Normal 150-450 [facility] Comment on above: Performed By: #### C BC ####[address] [phone] RBC Auto #/vol (Bld) 5.21 10E12/L High 4.10-4.80 [facility] Comment on above: Performed By: #### C BC ####[address] [phone] WBC Auto #/vol (Bld) 9.0 10*3/uL Normal 4.5-13.0 [facility] Comment on above: Performed By: #### C BC ####[address] [phone] Manual Differentialon 2017 Absolute Neutrophil No. 6.6 Normal [facility] Comment on above: Performed By: #### M DIFF ####[address] [phone] Atypical Lymphocytes 7 % Normal 0-8 [facility] Comment on above: Performed By: #### M DIFF ####[address] [phone] Band Neutrophils 0 % Low 5-11 [facility] Comment on above: Performed By: #### M DIFF ####[address] [place] [phone] Cell Morphology Normal Normal [facility] Comment on above: Performed By: #### M DIFF ####[address] [phone] Lymphocytes 18 % Low 25-45 [facility] Comment on above: Performed By: #### M DIFF ####[address] [phone] Metamyelocytes 0 % Normal 0-0 [facility] Comment on above: Performed By: #### M DIFF ####[address] [phone] Monocytes 2 % Low 3-6 [facility] Comment on above: Performed By: #### M DIFF ####[address] [phone] Myelocytes 0 % Normal 0-0 [facility] Comment on above: Performed By: #### M DIFF ####[address] [phone] Promyelocytes 0 % Normal 0-0 [facility] Comment on above: Performed By: #### M DIFF ####[address] [phone] Segmented Neutrophils 73 % High 34-64 [facility] Comment on above: Performed By: #### M DIFF ####[address] [phone] eGFRon 06-09-2018 GFR/1.73 sq M.predicted MDRD vol rate/area 79.58 Normal [facility] Comment on above: Result Comment: Refe rence range:> 3 months:>90 ml/min/1.73m^2Ref. Range change /26/2018 Performed By: #### E GFR ####[address] [place] [phone] Vital Signs Date Time Vital Sign Value Performing Clinician Facility 07-03-2024 14:00-0400 Body mass index (BMI) [Ratio] 21.95 kg/m2 Renata MCNULTY Work Phone: [facility] 07-03-2024 14:00-0400 Body weight 54.43 kg Renata Dubose PA Work Phone: [facility] 07-03-2024 14:00-0400 Diastolic blood pressure 66 mm[Hg] Renata Dubose PA Work Phone: [facility] 07-03-2024 14:00-0400 Systolic blood pressure 100 mm[Hg] Renata MCNULTY Work Phone: [facility] 07-20-2023 12:50-0400 Body height 157.48 cm Augusto Andersonaker Other [facility] Other 07-20-2023 12:50-0400 Body mass index (BMI) [Ratio] 18.47 kg/m2 Augusto Andersonaker Other [facility] Other 07-20-2023 12:50-0400 Body temperature 98.2 [degF] Augusto Brewer Other [facility] Other 07-20-2023 12:50-0400 Body weight 45.81 kg Augusto Brewer Other [facility] Other 07-20-2023 12:50-0400 Diastolic blood pressure 63 mm[Hg] Augusto Brewer Other [facility] Other 07-20-2023 12:50-0400 Respiratory rate 17 /min Augusto Brewer Other [facility] Other 07-20-2023 12:50-0400 SaO2% (BldA) [Mass fraction] 98 % Augusto Brewer Other [facility] Other 07-20-2023 12:50-0400 Systolic blood pressure 113 mm[Hg] Augusto Brewer Other [facility] Other 07-17-2023 09:40-0400 Body height 157.48 cm Mel Tomlinson Other [facility] Other 07-17-2023 09:40-0400 Body mass index (BMI) [Ratio] 18.65 kg/m2 Mel Crenshawmond Other [facility] Other 07-17-2023 09:40-0400 Body temperature 98.7 [degF] Mel Crenshawmond Other [facility] Other 07-17-2023 09:40-0400 Body weight 46.27 kg Mel Tomlinson Other [facility] Other 07-17-2023 09:40-0400 Diastolic blood pressure 70 mm[Hg] Mel Bushra Other [facility] Other 07-17-2023 09:40-0400 Respiratory rate 18 /min Mel Bushra Other [facility] Other 07-17-2023 09:40-0400 SaO2% (BldA) [Mass fraction] 98 % Mel Bushra Other [facility] Other 07-17-2023 09:40-0400 Systolic blood pressure 107 mm[Hg] Mel Bushra Other [facility] Other 09-27-2022 22:50-0500 Body temperature 98.24 [degF] Gabino Bridgett [facility] 09-27-2022 22:50-0500 Diastolic blood pressure 81 mm[Hg] Gabino Bridgett [facility] 09-27-2022 22:50-0500 Heart rate 99 /min Gabino Bridgett [facility] 09-27-2022 22:50-0500 Respiratory rate 18 /min Gabino Bridgett [facility] 09-27-2022 22:50-0500 SaO2% (BldA) [Mass fraction] 99 % Gabino Bridgett [facility] 09-27-2022 22:50-0500 Systolic blood pressure 121 mm[Hg] [facility] Bridgett [facility] 04-30-2022 02:06-0400 Body weight 49.[address] NASIR HARDING . [facility] Comment on above: Performed By: #### RPRQ #### [facility] [address] [place] [address] Dr. Valerio Alexis Encounters Encounter Date Encounter [...] Patient encounter procedure Renata MCNULTY Work Phone: [facility] Start: 07-03-2024 End: 07-03-2024 ambulatory RENATA DUBOSE Not Available Start: 06-05-2024 End: 06-05-2024 ambulatory NASIR MEHDI Not Available Start: 05-09-2024 End: 05-09-2024 ambulatory NASIR MEHDI Not Available Start: 03-11-2024 End: 03-11-2024 Emergency department patient visit NO PCP NO PCP [facility] Start: 11-26-2023 End: 11-27-2023 Emergency department patient visit SLIME ELLER [facility] Start: 07-26-2023 End: 07-26-2023 ambulatory Mel Tomlinson Other [facility] Other Start: 07-26-2023 Telephone encounter Mel Tomlinson [facility] Start: 07-20-2023 End: 07-20-2023 ambulatory Augusto Brewer Other [facility] Other Start: 07-20-2023 Office outpatient vi sit 15 minutes Augusto Brewer [facility] Start: 07-17-2023 Office outpatient ne w 20 minutes Mel Tomlinson [facility] Start: 07-17-2023 End: 07-17-2023 ambulatory Mel Tomlinson Facility:[facility] Start: 07-17-2023 End: 07-17-2023 ambulatory [employer]-C Mel Tomlinson Work Phone: [facility] Work Phone: Start: 07-17-2023 End: 07-17-2023 Departed Referred [employer] TECHNICIAN-C Mel Tomlinson Work Phone: [facility] [place] Work Phone: Start: 12-27-2022 End: 12-27-[address] DOCTOR MISC Facility:[facility] Start: 11-19-2022 End: 11-19-[address] DOCTOR MISC Facility:[facility] Start: 10-24-2022 End: 10-24-[address] DOCTOR MISC Facility:[facility] Start: 09-27-2022 End: 09-27-2022 Emergency department patient visit Gabino Urias [facility] Start: 08-30-2022 End: 08-30-2022 ambulatory [...] End: 02-15-2022 Patient encounter procedure Gabrielle Esqueda [facility] Start: 02-11-2022 End: 02-12-[address] NASIR HARDING . Facility:[facility] Start: 01-26-2022 End: 01-27-[address] NASIR HARDING . Facility: Start: 06-08-2018 End: 06-11-2018 Evaluation and management of inpatient ROSE MARY LUIS [facility] Start: 06-06-2018 End: 06-08-2018 Evaluation and management of inpatient CONOR SANTOYO [facility] Start: 02-22-2018 End: 02-22-2018 Patient encounter MAIRA BOUDREAUX [facility] Procedures Date Procedure Procedure Detail Performing [...] NASIR HARDING . Start: 08-24-2022 Repair Vulva, Litigation Claim Representative al Approach DR NASIR HARDING . None (qualifier value) Ranjan samson Esqueda Plan of Treatment Date Care Activity Detail Author Start: 07-29-2024 End: 07-29-2024 Patient encounter procedure [facility] Comment on above: Arrived Start: 07-04-2024 End: 07-04-2024 Professional / ancillary services management 07/04/2024 9:00 AM EDT Ancillary Procedure [facility] [address] [place] [id number] [facility] Start: 07-03-2024 End: 07-03-2025 [...] mellitus screening Expected: 07/03/2024 (Approximate), Expires: 07/03/2025 [facility] Comment on above: Expected: 07/03/2024 (Approximate), Expires: 07/03/2025 Start: 07-03-2024 End: 07-03-2024 Patient encounter procedure 07/03/2024 1:30 PM EDT Routine [facility] [address] [place] [address] Renata Dubose PA [address] [place] [address] Arrived [facility] Comment on above: Arrived Start: 06-02-2024 Influenza vaccination Influenza Vacc ine (#1) [facility] Start: 07-17-2023 [facility] Atopobium vaginae DN A [Presence] in Vaginal fluid by CHULA with probe detection [facility] Bacterial vaginosis associated bacterium 2 DNA [Presence] in Vaginal fluid by CHULA with probe detection [facility] Cytology Cervical or vaginal smear or scraping study Pap Smear Pathology and Cytology Routine Well woman exam with routine gynecological exam Ordered: 07/03/2024 [facility] Comment on above: Ordered: 07/03/2024 Megasphaera sp type 1 DNA [Presence] in Vaginal fluid by CHULA with probe detection [facility] Immunizations Immunization Date Immunization Notes Care Provider Fa cility 09-17-2018 influenza, injectabl e, quadrivalent, preservative free Renata MCNULTY Work Phone: [facility] 09-17-2018 meningococcal B vaccine, recombinant, OMV, adjuvanted Renata MCNULTY Work Phone: [facility] 09-17-2018 influenza virus vaccine, unspecified formulation Renata MCNULTY Work Phone: [facility] 07-06-2018 meningococcal B vaccine, recombinant, OMV, adjuvanted Renata MCNULTY Work Phone: [facility] 07-06-2018 meningococcal polysaccharide (groups A, C, Y and W-135) diphtheria toxoid conjugate vaccine (MCV4P) Renata MCNULTY Work Phone: [facility] 11-25-2017 influenza, seasonal, injectable Gabrielle Yin [facility] Comment on above: Reason for Medicatio n: Other (see comment) 11-25-2017 influenza, injectabl e, quadrivalent, preservative free Renata MCNULTY Work Phone: [facility] 12-01-2015 hepatitis A vaccine, pediatric/adolescent dosage, 2 dose schedule Renata MCNULTY Work Phone: [facility] 12-01-2015 human papilloma viru s vaccine, quadrivalent Renata MCNULTY Work Phone: [facility] 12-01-2015 influenza virus vaccine, whole virus Renata MCNULTY Work Phone: [facility] 08-04-2015 human papilloma viru s vaccine, quadrivalent Renata MCNULTY Work Phone: [facility] 06-02-2015 hepatitis A vaccine, pediatric/adolescent dosage, 2 dose schedule Renata MCNULTY Work Phone: [facility] 06-02-2015 human papilloma viru s vaccine, quadrivalent Renata MCNULTY Work Phone: [facility] 06-02-2015 meningococcal ACWY vaccine, unspecified formulation Renata MCNULTY Work Phone: [facility] 06-02-2015 tetanus toxoid, redu edi diphtheria toxoid, and acellular pertussis vaccine, adsorbed Renata MCNULTY Work Phone: [facility] 06-01-2007 diphtheria, tetanus toxoids and acellular pertussis vaccine, unspecified formulation Renata MCNULTY Work Phone: [facility] 06-01-2007 measles, mumps, rubella, and varicella virus vaccine Renata MCNULTY Work Phone: [facility] 06-01-2007 poliovirus vaccine, inactivated Reanta Vineet PA Work Phone: [facility] 10-24-2003 diphtheria, tetanus toxoids and acellular pertussis vaccine, unspecified formulation Renata Dubose PA Work Phone: [facility] 10-24-2003 poliovirus vaccine, unspecified formulation Renata Vineet PA Work Phone: [facility] 10-10-2003 hepatitis B vaccine, pediatric or pediatric/adolescent dosage Renata Vineet PA Work Phone: [facility] 10-10-2003 measles, mumps and rubella virus vaccine Renata Altus PA Work Phone: [facility] 10-10-2003 pneumococcal conjuga te vaccine, 7 valent Renata Dubose PA Work Phone: [facility] 04-10-2003 varicella virus vaccine Renata Vineet PA Work Phone: [facility] 2002 diphtheria, tetanus toxoids and acellular pertussis vaccine, unspecified formulation Renata Vineet PA Work Phone: [facility] 2002 pneumococcal conjuga te vaccine, 7 valent Renata Monteiroey PA Work Phone: [facility] 2002 diphtheria, tetanus toxoids and acellular pertussis vaccine, unspecified formulation Renata Vineet PA Work Phone: [facility] 2002 pneumococcal conjuga te vaccine, 7 valent Renata Vineet PA Work Phone: [facility] 2002 poliovirus vaccine, inactivated Renata Monteiroey PA Work Phone: [facility] 2002 diphtheria, tetanus toxoids and acellular pertussis vaccine, unspecified formulation Renata Dubose PA Work Phone: [facility] 2002 hepatitis B vaccine, pediatric or pediatric/adolescent dosage Renata Dubose PA Work Phone: [facility] 2002 pneumococcal conjuga te vaccine, 7 valent Renata Dubose PA Work Phone: [facility] 2002 poliovirus vaccine, inactivated Renata MCNULTY Work Phone: [facility] 2002 diphtheria, tetanus toxoids and acellular pertussis vaccine, unspecified formulation Renata MCNULTY Work Phone: [facility] 2002 pneumococcal conjuga te vaccine, 7 valent Renata MCNULTY Work Phone: [facility] 2002 poliovirus vaccine, unspecified formulation Renata MCNULTY Work Phone: [facility] 2002 hepatitis B vaccine, pediatric or pediatric/adolescent dosage Renata MCNULTY Work Phone: [facility] NEGATED: Highlighted row has not occurred!11-20-2019 influenza virus vaccine, live, attenuated, for intranasal use Gabrielle Yin [facility] Payers Date Payer Category Payer Medicaid [employer] [place] [id number] 2023-Present [address] [place] [address] [id number] 2023 Private Health Insurance [facility] MEDICA[facility] [id number] 2002 Unknown [id number] 2.16.840.1.812484.3.579.2. 593 2002 Unknown [id number] 2.16.840.1.422948.3.579.2. 593 2002 Unknown [id number] 2.16.840.1.989639.3.579.2. 593 2002 Unknown [id number] 2.16.840.1.872203.3.579.2. 593 2002 Unknown [id number] 2.16.840.1.817844.3.579.2. 593 2002 Unknown [id number] 2.16.840.1.988208.3.579.2. 593 2002 Unknown [id number] 2.16.840.1.137444.3.579.2. 593 2002 Unknown [id number] 2.16.840.1.148487.3.579.2. 593 2002 Unknown [id number] 2.16.840.1.685503.3.579.2. 593 2002 Unknown [id number] 2.16.840.1.109854.3.579.2. 593 2002 Unknown [id number] 2.16.840.1.397663.3.579.2. 593 2002 Unknown [id number] 2.16.840.1.095776.3.579.2. 593 2002 Unknown [id number] 2.16.840.1.107389.3.579.2. 593 2002 Unknown [id number] 2.16.840.1.313344.3.579.2. 593 2002 Unknown [id number] 2.16.840.1.493189.3.579.2. 593 2002 Unknown [id number] 2.16.840.1.460109.3.579.2. 593 2002 Unknown [id number] 2.16.840.1.525346.3.579.2. 593 2002 Unknown [id number] 2.16.840.1.643230.3.579.2. 593 2002 Unknown [id number] 2.16.840.1.851906.3.579.2. 593 2002 Unknown [id number] 2.16.840.1.873705.3.579.2. 593 2002 Unknown [id number] 2.16.840.1.062582.3.579.2. 593 2002 Unknown [id number] 2.16.840.1.072136.3.579.2. 593 2002 Unknown [id number] 2.16.840.1.146515.3.579.2. 593 2002 Unknown [id number] 2.16.840.1.303377.3.579.2. 593 2002 Unknown [id number] 2.16.840.1.406057.3.579.2. 593 2002 Unknown [id number] 2.16.840.1.003586.3.579.2. 593 2002 Unknown [id number] 2.16.840.1.279192.3.579.2. 593 2002 Unknown [id number] 2.16.840.1.692984.3.579.2. 593 2002 Unknown [id number] 2.16.840.1.354826.3.579.2. 593 2002 Unknown [id number]. 593 2002 Unknown [id number] 2.16.840.1.800610.3.579.2. 593 2002 Unknown [id number] 2.16.840.1.054741.3.579.2. 593 2002 Unknown [id number] 2.16.840.1.053439.3.579.2. 593 2002 Unknown [id number] 2.16.840.1.783461.3.579.2. 1286 2002 Unknown [id number] 2.16.840.1.328899.3.579.2. 1259 2002 Unknown [id number] 2.16.840.1.999953.3.579.2. 1259 2002 Unknown [id number] 2.16.840.1.962515.3.579.2. 1259 2002 Unknown [id number] 2.16.840.1.864828.3.579.2. 1259 1959 Self-pay 1959 Unknown [id number] 1959 Unknown [id number] Unknown [id number] 2.16.840.1.251126.3.579.2. 593 Unknown [id number] 2.16.840.1.076316.3.579.2. 531 Social History Date Type Detail Facility Start: 05-19-2021 Tobacco smoking status Never s moked tobacco (finding) [facility] Comment on above: denies denies denies Tobacco smoking status Never [facility] Comment on above: denies denies denies Start: 06-12-2023 End: 05-09-2024 Sex Assigned At Female [facility] Start: 2000 Sex Assigned At Female F [facility] Start: 05-09-2024 [facility] History of [...] Assessment Result Facility 09-27-2022 Functional Status Yes [facility] Clinical Notes 04-14-2021 to 07-03-2024 HAMLET [...] 19.0-19.9 in adult 06/12/2023 Childhood eating disorder ([facility]) 06/12/2023 Depressive disorder ([facility]) 06/07/2018 Disorder of refraction and accommodation 02/11/2014 Dysmenorrhea 06/12/2023 Menorrhagia with regular cycle 06/12/2023 Myopia 01/07/2015 Overactive bladder 09/15/2016 Overdose of antipsychotic, intentional self-harm, initial encounter ([facility]) 06/06/2018 Pharyngitis 06/12/2023 Tonsillitis 06/12/2023 Recurrent UTI [...] nursing note reviewed. Exam conducted with a survey project manager present. Vitals: Estimated body mass index is [...] of: HAMLET Underwood documented in this encounter [facility] 07-20-2023 Evaluation note Encounter [...] and subcutaneous tissue, unspecified (ICD-10 - L08.9) [facility] Other 10-16-2023 Evaluation note* Encounter Date Diagnosis [...] of candidiasis of vagina (ICD-10 - Z86.19) [facility] Other 12-28-2022 Hospital Discharge instructions Patient Education 09/27/2022 23:49:20 Upper Respiratory Infection, Adult, Sohj-ek-Runh Upper Respiratory Infection, Adult An upper respiratory [...] and other clear broths. General instructions Take wtiv-hdg-ogmwqlj and prescription medicines only as told by [...] not have soap and water, use hand record press supervisor. Avoid touching your mouth, face, eyes, or [...] get better within 7 10 days. Take btkc-ehf-ulnfxor and prescription medicines only as told by your doctor. This information is not intended to replace advice given to you by your health care provider. Make sure you discuss any questions you have with your health care provider. Document Released: 03/06/2009 Document Revised: 09/26/2019 Document Reviewed: 05/11/2018 [employer] Patient Education 2020 [employer]. 09/27/2022 23:49:20 Cough, Adult, Qdtz-as-Dlqj Cough, Adult A cough helps to clear [...] Follow these instructions at home: Medicines Take flzz-yqv-ultxrwl and prescription medicines only as told by [...] Many things can cause a cough. Take nxqz-dxa-iguknvh and prescription medicines only as told by [...] 05/31/2012 Document Revised: 10/07/2019 Document Reviewed: 10/07/2019 [employer] Patient Education 2020 [employer]. Follow Up Care 09/27/2022 22:50:28 With:Fatoumata Oneill Address:Unknown When:09/30/2022 Comments:Follow-up with your primary care provider in 3 to 5 days. If symptoms worsen, do not improve, or new symptoms arise please report back to emergency department for further evaluation. [facility]12-27-2022 Evaluation + Plan noteExtracted from: Title:ED Note Author:Rober Wang PA-C te:09/27/22 Constipation (K59.00: Consti pation, unspecified) Upper respiratory infection, viral (J06.9: Acute upper respiratory infection, unspecified) Orders: polyethylene glycol 3350, 17 gm, Oral, Daily, # 12 EA, Refills(s) 0, Pharmacy: [facility]/pharmacy #[id number], 157.5, cm, 09/27/22 22:57:00 EST, Height/Length Dosing, 51.3, kg, 09/27/22 22:57:00 EST, Weight Dosing Group A Strep by PCR Rapid Strep w/rfx Diagnostic Tests Pending * Group A Strep by PCR 09/27/22 [facility]07-14-2021 Evaluation + Plan note Future Scheduled Tests Laboratory* Rapid Strep w/rfx [facility] Work Phone: [facility] Other Evaluation note* Diagnosis Diabetes mellitus screening Screening for diabetes mellitus Well woman exam with routine gynecological exam Routine gynecological examination Heartburn during in second trimester [facility] N[facility] No data available for this section [facility] No data available for this section [facility] No data available for this section [facility] Summary Purpose Family History No [...] section and content) DATE CREATED AUTHOR 07/16/2018 [facility] DATE CREATED AUTHOR AUTHOR'S ORGANIZ ATION 11/22/2019 [facility] DATE CREATED AUTHOR AUTHOR'S ORGANIZ ATION 12/30/2022 [facility] DATE CREATED AUTHOR AUTHOR'S ORGANIZ ATION 07/25/2023 [facility] DATE CREATED AUTHOR AUTHOR'S ORGANIZ ATION 10/01/2023 [facility] DATE CREATED AUTHOR AUTHOR'S ORGANIZ ATION 03/14/2024 [facility] DATE CREATED AUTHOR AUTHOR'S ORGANIZ ATION 07/30/2024 [facility] EPIC Patient Care team informatio n (unrecognized section and content) Team Status: Inactive Member Role Status Dates Mel Tomlinson NP-C Attending Provider 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 [facility]. provides no warranty or guarantee of the accuracy or completeness of information in this document.
--- NOTE | 2024-08-03 17:26 | CT_ITS ---
[address] [address] Patient Name: TANNER RAMIREZ MRN: [id number] date: 2000 Sex: F Assigned Patient Location: ER Current Patient Location: ED.MAIN Accession/Order Number: [id number] Exam Date: 08/03/2024 17:54 Report Date: 08/03/2024 20:58 At the request of: PRABHU DEE Procedure: CT abdomen pelvis wo con EXAMINATION:CT abdomen pelvis wo con INDICATION:RLQ pain /pt suspected appendicitis COMPARISON:11/19/2022 TECHNIQUE:Multiple thin section transaxial slices were acquired through the abdomen and pelvis without intravenous contrast. Coronal and sagittal reconstructed images were reviewed. Oral contrastWas not administered. FINDINGS: LOWER CHEST: The lower chest is unremarkable. LIVER: The liver is unremarkable. GALLBLADDER AND BILIARY SYSTEM: No obvious ductal dilation. No calcified stones. SPLEEN: The spleen is unremarkable. PANCREAS: The pancreas is unremarkable. ADRENAL GLANDS: The adrenal glands are unremarkable. KIDNEYS AND URETERS: There is moderate to severe right-sided hydronephrosis and proximal hydroureter. This is most likely due to mass effect by fetus. The distal right ureter is difficult to adequately visualized on this exam. No obstructing urologic calcifications are present in the proximal to mid right ureter. There is no left hydronephrosis.The left ureter is difficult to adequately evaluate throughout its course. VASCULATURE: Vascularity is unremarkable. PERITONEUM/RETROPERITONEUM: No definitive free air or free fluid. LYMPH NODES: No suspicious lymphadenopathy. GASTROINTESTINAL TRACT: The bowel is normal in caliber.The appendix is not definitively visualized on this examination. No acute inflammatory process is associated with the bowel. BLADDER: The urinary bladder is unremarkable. REPRODUCTIVE SYSTEM: There is an intrauterine gestation present. BODY WALL: Unremarkable. BONES: Osseous structures are unremarkable. CT/CT abdomen pelvis wo con IMPRESSION: 1. Moderate to severe right-sided hydronephrosis and proximal to mid hydroureter is present. This is most likely secondary to mass effect by intrauterine gestation. 2. The appendix is not well delineated on this unenhanced CT scan. No definitive acute inflammatory process is associated with the bowel. Electronically authenticated by: BRIAN GUZMAN Date: 08/03/2024 20:58
[2024-08-03 17:30] LABS: Basophils Percent Auto 0.1 % (0.2-2.0); Eosinophils Absolute Auto 0.1 10^3/uL (0.0-0.7); Eosinophils Percent Auto 0.8 % (0.9-7.0); Hematocrit 31.3 % (36.0-48.0); Hemoglobin 10.7 g/dL (12.0-16.0); Immature Granulocytes Pct Auto 1.1 % (0.0-0.5); Lymphocytes Absolute Auto 1.1 10^3/uL (1.2-3.8); Lymphocytes Percent Auto 12.5 % (20.5-60.0); Mean Corpuscular HGB Conc 34.2 g/dL (29.9-35.2); Mean Corpuscular Hemoglobin 30.4 pg (26.7-34.0); Mean Corpuscular Volume 88.9 fL (81.0-99.0); Mean Platelet Volume 9.8 fL (9.5-13.5); Monocytes Percent Auto 10.9 % (1.7-12.0); Neutrophils Absolute Auto 6.7 10^3/uL (1.4-6.5); Neutrophils Percent Auto 74.6 % (43.0-75.0); Platelet Count 167 10^3/uL (150-450); Red Blood Count 3.52 10^6/uL (4.20-5.40); Red Cell Distribution Width 13.4 % (11.0-15.0)
--- NOTE | 2024-08-03 17:38 | ED_ITS ---
HPI - Abdominal Pain General Chief Complaint: Abdominal Pain Stated Complaint: POSS APPENDICITIS Time Seen by Provider: 08/03/24 17:06 Mode of arrival: walk-in History of Present Illness HPI narrative: Patient is 29 weeks coming to us with 1 day history of right lower quadrant pain preceded yesterday with a sensation of fever. Patient mentioned that the pain is 8 out of 10 and it is in the right lower quadrant not radiating associated with any burning with urination or nausea The patient mentioned that she was evaluated by her OB doctor today for urine infection Patient was already evaluated by OB before arrival and the concern was for acute appendicitis that why the patient was sent to us for evaluation Related Data Home Medications ?Medication ?Instructions ?Recorded ?Confirmed omeprazole 20 mg capsule,delayed 20 mg PO DAILY 08/03/24 08/03/24 release ondansetron 4 mg disintegrating 4 mg translingual Q6H PRN nausea 08/03/24 08/03/24 tablet and vomiting Allergies Allergy/AdvReac Type Severity Reaction Status Date / Time No Known Drug Allergies Allergy Verified 08/03/24 16:18 Review of Systems ROS Status of ROS 10 or more systems reviewed and unremark able except as noted in history and below PFSH PFSH Social History Little interest or pleasure in doing things: not at all Feeling down, depressed, or hopeless: not at all Exam Narrative Exam Narrative: Nurses notes and vital signs reviewed and patient is not hypoxic. General: Well-appearing and in no apparent distress. Skin: Warm, dry, no pallor noted. No rash. Head: Normocephalic, atraumatic. Neck: Supple, non-tender. Eye: Pupils are equal, round and EOMI. No scleral icterus. Ears, Nose, Mouth, and Throat: TM are clear, no nasal mucosal hypertrophy. Oral mucosa is moist, no posterior oropharynx erythema, uvula is mid-line Cardiovascular: Regular Rate and Rhythm without murmur, gallop or rub. Respiratory: No accessory muscle use or respiratory distress. Lungs are clear to auscultation, no wheezing, rales or rhonchi Chest Wall: no tenderness Back: No midline thoracic or lumbar vertebral tenderness. No CVA tenderness Musculoskeletal: normal ROM, no calf or popliteal tenderness, no lower extremity edema/swelling GI: Abdomen is soft, gravid abdomen consistent with a 29 weeks Patient have right lower quadrant tenderness, positive McBurney Neurological: A&O x4. No cranial nerve dysfunction observed. No truncal ataxia. Moves all extremities. Sensation intact. Psychiatric: Cooperative and interactive. Normal mood and affect. Constitutional Vital Signs, click to edit/add: Last Vital Signs Temp 98.8 F 08/03/24 18:20 Pulse 85 08/03/24 18:20 Resp 18 08/03/24 18:20 BP 119/70 08/03/24 18:20 Pulse Ox 100 08/03/24 18:20 O2 Del Method Room Air 08/03/24 18:20 Course Vital Signs Vital signs: Vital Signs Temperature 98.0 F 08/03/24 17:09 Pulse Rate 89 08/03/24 17:09 Respiratory Rate 18 08/03/24 17:09 Blood Pressure 127/66 08/03/24 17:09 Pulse Oximetry 100 08/03/24 17:09 Temperature 98.8 F 08/03/24 18:20 Pulse Rate 85 08/03/24 18:20 Respiratory Rate 18 08/03/24 18:20 Blood Pressure 119/70 08/03/24 18:20 Pulse Oximetry 100 08/03/24 18:20 Oxygen Delivery Method Room Air 08/03/24 18:20 MDM - Abdominal Pain MDM Narrative Medical decision making narrative: I did explain to the patient that already know before arrival that she is coming here to be evaluated for acute appendicitis and right now since we do not have an MRI and no availability of the ultrasound at the moment we have to go directly to the CAT scan I did explain to the mother the risk factor of being exposed to radiation but with the fact that this is possible acute appendicitis that is a lifesaving situation for the patient as well as her The patient understands the risks and benefits CBC showed no acute pathology The patient chemistry also showed no acute pathology except for mild hyperglycemia that she was provided with dextrose 50% for it Patient care was transferred to awaiting ct result Lab Data Labs: Lab Results 08/03/24 Range/Units 17:20 WBC 9.0 (4.0-11.0) 10^3/uL RBC 3.52 L (4.20-5.40) 10^6/uL Hgb 10.7 L (12.0-16.0) g/dL Hct 31.3 L (36.0-48.0) % MCV 88.9 (81.0-99.0) fL MCH 30.4 (26.7-34.0) pg MCHC 34.2 (29.9-35.2) g/dL RDW 13.4 (11.0-15.0) % Plt Count 167 (150-450) 10^3/uL MPV 9.8 (9.5-13.5) fL Neut % (Auto) 74.6 (43.0-75.0) % Lymph % (Auto) 12.5 L (20.5-60.0) % [place] % (Auto) 10.9 (1.7-12.0) % Eos % (Auto) 0.8 L (0.9-7.0) % Baso % (Auto) 0.1 L (0.2-2.0) % Neut # (Auto) 6.7 H (1.4-6.5) 10^3/uL Lymph # (Auto) 1.1 L (1.2-3.8) 10^3/uL [place] # (Auto) 1.0 H (0.3-0.8) 10^3/uL Eos # (Auto) 0.1 (0.0-0.7) 10^3/uL Baso # (Auto) 0.0 (0.0-0.1) 10^3/uL Abs Immat Gran (auto) 0.10 H (0.00-0.03) 10^3/uL Imm/Tot Granulo (auto) 1.1 H (0.0-0.5) % Sodium 138 (136-145) mmol/L Potassium 3.7 (3.5-5.1) mmol/L Chloride 104 (98-107) mmol/L Carbon Dioxide 23.1 (21.0-32.0) mmol/L Anion Gap 14.6 BUN 8.0 (7.0-18.0) mg/dL Creatinine 0.63 (0.55-1.02) mg/dL Est GFR ( Amer) >60 (>=60 mL/min/1.73m^2) Est GFR (Non-Af Amer) >60 (>=60 mL/min/1.73m^2) BUN/Creatinine Ratio 12.7 Glucose 73 L (74-106) mg/dL Calcium 8.9 (8.5-10.1) mg/dL Total Bilirubin 0.3 (0.2-1.0) mg/dL AST 18 (15-37) U/L ALT 14 (14-59) U/L Alkaline Phosphatase 103 (46-116) U/L Total Protein 6.8 (6.4-8.2) g/dL Albumin 2.4 L (3.4-5.0) g/dL Globulin 4.4 g/dL Albumin/Globulin Ratio 0.5 Discharge Plan Discharge Patient Disposition: Still a Patient
[2024-08-03 17:43] LABS: Alanine Aminotransferase 14 U/L (14-59); Albumin Globulin Ratio 0.5; Albumin Level 2.4 g/dL (3.4-5.0); Alkaline Phosphatase 103 U/L (46-116); Anion Gap 14.6; Aspartate Amino Transferase 18 U/L (15-37); BUN Creatinine Ratio 12.7; Bilirubin Total 0.3 mg/dL (0.2-1.0); Calcium 8.9 mg/dL (8.5-10.1); Carbon Dioxide 23.1 mmol/L (21.0-32.0); Chloride 104 mmol/L (98-107); Estimated GFR (African America >60 (>=60 mL/min/1.73m^2); Estimated GFR (Non-African Ame >60 (>=60 mL/min/1.73m^2); Globulin 4.4 g/dL; Glucose 73 mg/dL (74-106); Potassium 3.7 mmol/L (3.5-5.1); Sodium 138 mmol/L (136-145); Total Protein 6.8 g/dL (6.4-8.2)
[2024-08-03 18:20] VITALS: BP 119/70; PULSE 85; TEMP 37.1; O2SAT 100
[2024-08-03] MEDS: DEXTROSE 50 %-WATER 25 GM/50 ML SYRINGE IV (18:22)
[2024-08-03 20:21] VITALS: BP 112/75; PULSE 104; TEMP 37.4; O2SAT 98
[2024-08-03 22:18] VITALS: BP 117/72; PULSE 101; TEMP 37.4; O2SAT 98
== END 2024-08-03 22:20 | disposition short-term general hospital (02) ==
PROVIDERS: Emergency Medicine; Emergency Provider Student in an Organized Health Care Education/Training Program
DX: O26.893 Other specified pregnancy related conditions, third trimester (principal); R10.31 Right lower quadrant pain; Z3A.29 29 weeks gestation of pregnancy
CPT/HCPCS: 36415; 74176; 80053; 85025; 99285

== ENCOUNTER 2024-09-19 14:45 | Outpatient (OUT) | payer OTHER, SELFPAY ==
--- NOTE | 2024-09-19 14:42 | US_ITS ---
[address] [address] Patient Name: TANNER RAMIREZ MRN: [id number] date: 2000 Sex: F Assigned Patient Location: [facility] Current Patient Location: [facility] Accession/Order Number: [id number] Exam Date: 09/19/2024 14:42 Report Date: 09/19/2024 15:31 At the request of: WILL CRESPO Procedure: US OB growth EXAMINATION: US OB growth HISTORY: SMALL FOR GESTATIONAL AGE COMPARISON: 07/04/2024 FINDINGS: Heart Rate: 151 bpm Amniotic Fluid Volume: 11.0 cm, largest fluid pocket 5.0 cm Number: 1 Position: Cephalic presentation, longitudinal lie BIOMETRY: BPD: 8.07 cm; 32 weeks 3 days; 3 % HC: 31.04 cm; 34 weeks 5 days; 5.60 % AC: 30.50 cm; 34 weeks 3 days; 23.40 % FL: 6.63 cm; 34 weeks 1 day; 10.70 % EFW: 2448.81 g; 13.80 %, 5 lbs. 4 oz. FL/AC: 21.74 FL/BPD: 82.16 HC/AC: 1.02 GESTATIONAL AGE: Age by EDC: 35 weeks 5 days JOSE by EDC: 2024-10-19 Age by US: 34 weeks 0 days JOSE by US: 2024-11-02 US/US OB growth IMPRESSION: BPD at the 3rd percentile Head circumference at the 6th percentile Estimated weight at the 14th percentile Electronically authenticated by: LEE CLAY Date: 09/19/2024 15:31
--- OUTSIDE RECORDS SUMMARY | 2024-09-19 14:59 | XMS_ITS | CCD ---
Author Organization [facility] Care Team Providers Care Cephalometric Technician Name Role Phone OKSANAMAIRA ECHEVARRIA Unavailable Unavailable TOBY, ROSE MARY Unavailable Unavailable TOBY, ROSE MARY Unavailable Unavailable SONDIKE, CONOR B Unavailable Unavailable SONDIKE, CONOR B Unavailable Unavailable TOBY, ROSE MARY Unavailable Unavailable HISSETT, JOON Unavailable Unavailable TOBY, ROSE MARY Unavailable Unavailable NORIEGAJOSE LUIS DAVIS Unavailable Unavailable NOAH MCCALLUM Unavailable Unavailable NEILANMAIDA Unavailable Unavailable TOBY, Rose Mary A Primary Care Physician [phone] Fatoumata Oneill Primary Care Physician [phone] MEHDI ., DR SOLIS Attending Unavailable MEHDI [...] Unavailable MEHDI ., DR SOLIS Attending Unavailable MEDHI ., DR SOLIS Admitting Unavailable ZIEBER, DR [...] Unavailable MISC, DR CORNEJO Primary Care Unavailable IRAIDA, CHRISTIANO Consulting Unavailable IRAIDA, CHRISTIANO Admitting Unavailable IRAIDACHRISTIANO Attending Unavailable MISC, DR CORNEJO Primary Care [...] Unavailable MEHDI ., DR SOLIS Attending Unavailable EAGLE BUTTE, DR LEE Arceo Consulting Unavailable MEHDI ., [...] Unavailable Jesusita Torrez MD Primary Care Provider LEE ZARATE Admitting Unavailable LEE ZARATE Attending Unavailable ELOISE MONTANO Referring Unavailable NO PCP, NO PCP Primary Care Unavailable TYLOR WAHL Consulting Unavailable JUNAID GUILLEN Consulting Unavailab YAMINI Harris Referring Unavailable NO PCP, NO PCP Primary Care Unavailable No Pcp, No Pcp Primary Care Provider Unavailabl NASIR Inman Attending Unavailable RENATA MANLEY Attending Unavailable NASIR HARDING Attending Unavailable VIRGINIA ROYAL Attending Unavailab RENATA Noonan Attending Unavailable VIRGINIA ROYAL Attending Unavailab VIRGINIA Espinoza Referring Unavailab RENATA Noonan Attending Unavailable NO PCP, NO PCP Primary Care Unavailable Medications Current Medications Medication Drug Class(es) Dates Sig (Normalized) Sig (Original) [id number] 200 actuat albuterol 0.09 mg/actuat metered dose inhaler (2 sources) beta2-Adrenergic Agonist Start: 08-26-2024 End: 08-26-2025 take 2 puff(s) by inhalation every four hours for wheezing albuterol HFA (Ventolin HFA) 90 mcg/act inhaler Indications: Upper respiratory infection, acute Inhale 2 puffs every 4 (four) hours if needed for wheezing 18 g 11 08/26/2024 08/26/2025 Active amoxicillin 500 mg oral capsule (8 sources) Penicillin-class Antibacterial Start: 07-17-2023 take 1 capsule by mouth every eight hours Amoxicillin 500 MG 1 capsule Orally three times a day for 10 day(s) Jul, Active Amoxicillin 875 MG Oral for 10 Days Not-Taking aspirin 325 mg oral tablet (3 sources) Platelet Aggregation Inhibitor, Nonsteroidal Anti-inflammatory Drug Start: 08-20-2024 End: 08-20-2025 take 1 tablet by mouth once daily aspirin 325 MG tablet Indications: Superficial phlebitis of arm Take 1 tablet (325 mg) by mouth Daily 30 tablet 08/20/2024 08/20/2025 Active azithromycin 250 mg oral tablet (8 sources) Macrolide Antimicrobial Start: 08-26-2024 End: 08-26-2024 azithromycin (Zithromax Z-Kermit) 250 MG tablet Indications: Sinusitis, unspecified chronicity, unspecified location As directed 6 tablet 08/26/2024 Active Azithromycin 250 MG Oral for 3 Days Not-Taking fluconazole 150 mg oral tablet (4 sources) Azole Antifungal Start: 07-17-2023 Diflucan 150 MG 1 tablet Orally once for 2 days Take the first tablet at the first onset of vaginal itching, take the second tablet 3 days later Jul, Active hydrocortisone 10 mg/ml / neomycin 3.5 mg/ml / polymyxin b 73227 unt/ml otic suspension (4 sources) Aminoglycoside Antibacterial, Polymyxin-class Antibacterial, Corticosteroid Start: 07-17-2023 Kodallxt-Oyshglklb-ON 3.5-00547-7 3 drops right ear Three times a day for 7 days Jul, Active methylPREDNISolone (2 sources) Corticosteroid Start: 08-26-2024 methylPREDNISolone (Medrol Dospak) 4 MG tablets Indications: Upper respiratory infection, acute Day 1: 6 tablets Day 2: 5 tablets Day 3: 4 tablets Day 4: 3 tablets Day 5: 2 tablets Day 6: 1 tablet 21 tablet 08/26/2024 Active omeprazole 20 mg delayed release oral capsule (19 sources) Proton Pump Inhibitor Start: 07-03-2024 End: 07-03-2025 take 1 capsule by mouth once at bedtime omeprazole (PriLOSEC) [address] capsule Indications: Heartburn during in second trimester Take 1 capsule (20 mg) by mouth at bedtime Do not crush or chew. 30 capsule 11 07/03/2024 07/03/2025 Active ondansetron 4 mg oral tablet (20 sources) Serotonin-3 Receptor Antagonist Start: 05-09-2024 take [...] 30 tablet 3 05/09/2024 Active Start: 09-25-2023 End: 08-26-2024 ondansetron ODT (Zofran-ODT) 4 MG disintegrating tablet Take 4 mg by mouth 09/25/2023 08/26/2024 Discontinued (Therapy completed) take 1 tablet by sri th every eight hours as needed Ondansetron 4 MG DISSOLVE 1 TABLET ON THE TOUNGE EVERY 8 HOURS NEEDED Oral for 2 Days Not-Taking polyethylene glycol 3350 62862 mg powder for oral solution (5 sources) Osmotic Laxative Start: 09-27-2022 take 17 g by mouth once daily Miralax 3350 17 gram packet 17 gm, Oral, Daily, # 12 EA, Refills(s) 0, Pharmacy: [facility]/pharmacy #[id number], 157.5, cm, 09/27/22 22:57:00 EST, Height/Length Dosing, 51.3, kg, 09/27/22 22:57:00 EST, Weight Dosing Start Date: 09/27/22 Status: Ordered polysaccharide iron complex 391 mg oral capsule (2 sources) Start: 08-26-2024 End: 09-25-2024 take 1 capsule by mouth once daily iron polysaccharides (ProFe) 391.3 (180 Fe) MG capsule Indications: Anemia, unspecified type Take 1 capsule (391.3 mg) by mouth Daily 30 capsule 3 08/26/2024 09/25/2024 Active sulfamethoxazole 800 mg / trimethoprim 160 mg oral tablet (7 sources) Dihydrofolate Reductase Inhibitor Antibacterial, Sulfonamide Antimicrobial Start: 07-20-2023 take 1 tablet by mouth every twelve hours Bactrim DS 800-160 MG 1 tablet Orally Twice a day for 7 days Jul, Active Completed/Discontinued Medications Medication Drug Class(es) Dates Sig (Normalized) Sig (Original) cephalexin 250 mg oral capsule (12 sources) Cephalosporin Antibacterial Start: 08-05-2024 End: 08-20-2024 cephalexin (Keflex) 250 MG capsule Take 250 mg by mouth in the morning and 250 mg at noon and 250 mg in the evening and 250 mg before bedtime. 08/05/2024 08/20/2024 Discontinued Cephalexin 250 M G Oral for 5 Days Not-Taking fluticasone propionate 0.05 mg/actuat metered dose nasal spray (13 sources) Corticosteroid Start: 07-29-2024 End: 07-29-2025 take 2 spray(s) nasal route in the morning fluticasone (Flonase) 50 MCG/ACT nasal spray Indications: Allergy, initial encounter Administer 2 sprays into each nostril in the morning and 2 sprays before bedtime. Shake gently. Before first use, prime pump. After use, clean tip and replace cap.. 16 g 2 07/29/2024 08/26/2024 Discontinued (Therapy completed) metroNIDAZOLE 500 mg oral tablet (4 sources) Nitroimidazole Antimicrobial metroNIDAZOLE 500 MG Oral for 7 Days Not-Taking venlafaxine 50 mg oral tablet (4 sources) Serotonin and Norepinephrine Reuptake Inhibitor Venlafaxine HCl 50 MG Oral for 30 Days Not-Taking Problems Active Problems Problem Classification Problem Date Documented Da te Episodic/Chronic Abdominal pain (11 sources) Unspecified abdominal pain; Translations: [Lower abdominal pain, unspecified] Onset: 08-05-2022 Episodic Allergic reactions (2 sources) Allergic condition; Translations: [Allergy, unspecified, initial encounter] 07-29-2024 Episodic Anxiety disorders (20 sources) Anxiety; Translations: [Anxiety disorder, unspecified] Onset: 06-12-2023 06-12-2023 Chronic Deficiency and other anemia (2 sources) Anemia; Translations: [Anemia, unspecified] 08-26-2024 Episodic Disorders usually diagnosed in infancy, childhood, or adolescence (20 sources) 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; Translations: [Other feeding disorders of infancy and director of cardiopulmonary services] Onset: 06-12-2023 02-12-2019 Chronic Genitourinary congenital anomalies (1 source) Congenital hydronephrosis; 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] 08-08-2024 Chronic Genitourinary symptoms and ill-defined conditions (3 sources) Personal history of urinary (tract) infections; Translations: [Dysuria] Onset: 11-21-2022 Episodic Immunizations and screening for infectious disease (2 sources) Encounter for screening for infections with a predominantly sexual mode of transmission; Translations: [Contact with and (suspected) exposure to infections with a predominantly sexual mode of transmission] Onset: 05-20-2022 Episodic Menstrual disorders (20 sources) Dysmenorrhea; Translations: [Irregular menstruation, unspecified] Onset: 02-11-2022 02-12-2019 Chronic Mood disorders (20 sources) Depressive disorder; Translations: [Depressive disorder] Onset: 06-07-2018 06-12-2023 Chronic Other complications of (2 sources) Other specified related conditions, unspecified trimester; Translations: [OTH SPEC PREG RELATED COND UNS TRI] Onset: 05-19-2022 Episodic Other complications of (2 sources) Heartburn; Translations: [Other specified related conditions, second trimester] 07-03-2024 Episodic Other complications of (12 sources) Right lower quadrant pain; Translations: [Other specified related conditions, unspecified trimester] Onset: 08-04-2024 08-04-2024 Episodic Other complications of (2 sources) Pyelonephritis in ; Translations: [Infections of kidney in , third trimester] 08-08-2024 Episodic Other complications of (2 sources) size does not accord with dates; Translations: [Uterine size-date discrepancy, unspecified trimester] 07-29-2024 Episodic Other connective tissue disease (4 sources) Pain in left arm; Translations: [Pain in left arm] 08-20-2024 Episodic Other diseases of bladder and urethra (20 sources) Overactive bladder; Translations: [Overactive bladder] Onset: [...] diseases Episodic Other and delivery including normal (20 sources) Encounter for routine follow-up; Translations: [Single live ] Onset: 01-27-2022 Episodic Other screening for suspected conditions (not mental disorders or infectious disease) (19 sources) Encounter for screening for diabetes mellitus; Translations: [Encounter for other specified screening] Onset: 02-16-2022 Episodic Other skin disorders (1 source) Sebaceous cyst Episodic Other upper respiratory infections (2 sources) Sinusitis; Translations: [Chronic sinusitis, unspecified] 08-26-2024 Chronic Other upper respiratory infections (20 sources) Pharyngitis; Translations: [Sore throat symptom] Onset: 09-27-2022 05-19-2021 Episodic Otitis media and related conditions (2 sources) Otitis media, unspecified, right ear Episodic Residual codes; unclassified (2 sources) Gestation period, 30 weeks; Translations: [30 weeks gestation of ] 08-13-2024 Episodic Residual codes; unclassified (2 sources) Gestation period, 28 weeks; Translations: [28 weeks gestation of ] 07-29-2024 Episodic Residual codes; unclassified (2 sources) Gestation period, 32 weeks; Translations: [32 weeks gestation of ] 08-26-2024 Episodic Residual codes; unclassified (1 source) Pain, unspecified; Translations: [Pain, unspecified] Onset: 08-04-2024 Episodic Skin and subcutaneous tissue infections (1 source) Local infection of the skin and subcutaneous tissue, unspecified Episodic Unclassified (2 sources) Decreased body mass index 07-06-2020 Unclassified (3 sources) CONTACT W/AND (SUSP) EXPOS COVID-19; Translations: [CONTACT W/AND (SUSP) EXPOS COVID-19] Onset: 03-03-2022 Unclassified (1 source) Problem Onset: 03-11-2024 Unclassified (1 source) Urinary Problem- Posible Preganacy Onset: 03-11-2024 Unclassified (20 sources) OB Reminders Onset: 05-14-2024 05-14-2024 Viral infection (1 source) COVID-19; Translations: [COVID-19] Onset: 03-03-2022 Past or Other Problems Problem Classification Problem Date Documented Date Episodic/Chronic Acute and chronic tonsillitis (20 sources) Tonsillitis; Translations: [Acute tonsillitis, unspecified] Onset: 06-12-2023 05-19-2021 Episodic Asthma (2 sources) Asthma Resolved: 10-02-2016 11-25-2017 Chronic Comment on above: pt does not have ast a - seen specialist to confirm not having asthma Blindness and vision defects (20 sources) Disorder of refraction AND/OR accommodation; Translations: [Other disorders of refraction] Onset: 02-11-2014 06-12-2023 Episodic Hemorrhage during ; abruptio placenta; placenta previa (4 sources) Hemorrhage in early , unspecified; Translations: [HEMORRHAGE EARLY UNS] Onset: 02-16-2022 Episodic Inflammatory diseases of female pelvic organs (20 sources) Acute vaginitis; Translations: [Acute vaginitis] Onset: 06-12-2023 06-12-2023 Episodic Intestinal infection (20 sources) Viral gastritis; Translations: [Viral gastroenteritis] Onset: 12-29-2022 12-11-2019 Episodic OB-related trauma to perineum and vulva (1 source) Other specified trauma to perineum and vulva; Translations: [OTHER SPEC TRAUMA PERINEUM AND VULVA] Onset: 09-15-2022 Episodic Other complications of (5 sources) Maternal care for other known or suspected poor growth, third trimester, not applicable or unspecified; Translations: [MAT CARE OTH PA FTL GRTH 3RD TM UNS] Onset: 08-08-2022 [...] PREG UNS TRI] Onset: 05-19-2022 Episodic Other nutritional; endocrine; and metabolic disorders (20 sources) Body mass index less than 20; Translations: [Body mass index (BMI) 19.9 or less, adult] Onset: 06-12-2023 2021 Episodic Residual codes; unclassified (1 source) 38 [...] 03-02-2022 Episodic Suicide and intentional self-inflicted injury (20 sources) Poisoning by psychotropic agent; Translations: [Poisoning by unspecified antipsychotics and neuroleptics, intentional self-harm, initial encounter] Onset: 06-06-2018 06-12-2023 Episodic Unclassified (1 source) LOM 09/19/2011( Confirmed ) 09-26-2011 Unclassified (1 source) LOM 09/19/2011 09-26-2011 Unclassified (1 source) CONTACT W/AND (SUSP) EXPOS COVID-19; Translations: [CONTACT W/AND (SUSP) EXPOS COVID-19] Onset: 02-25-2022 Urinary tract infections (20 sources) Urinary tract infectious disease; Translations: [Urinary tract infection, site not specified] Onset: 09-15-2016 10-16-2016 Episodic Results Test Name Value Interpretation Reference Range Facility Urinalysis macro (dipstick) panel (U)on 08-26-2024 Bilirubin, UA Negative Negative - 4(70) +++ mg/dL [facility] Blood, UA Negative Negative - 50 Jd/mcL [facility] Clarity, UA Clear [facility] re Color, UA Yellow [facility] e Glucose, UA Negative Negative - 2000(110) ++++ mg/dL [facility] Interpretation and review of laboratory results Normal [facility] Ketones, UA Negative Negative - 160(16) ++++ mg/dL [facility] Leukocytes, UA Negative Negative - 500+++ Mookie/mcL [facility] Nitrite, UA Negative Negative - Positive [facility] pH, UA 7 5 - 9 [facility] e Protein, UA Negative Negative - 2000(20) ++++ mg/dL [facility] Spec Grav, UA 1.02 1 - 1.03 [facility] Urobilinogen, UA 0.2 0.2 - 12 mg/dL [facility] V[facility] US UPPER EXTREMITY VENO US DUPLEX LEFTon 08-20-2024 VAS US UPPER EXTREMITY VENOUS DUPLEX LEFT Exam: [facility] US UPPER EXTREMITY VENOUS DUPLEX LEFT Clinical History: Left arm pain Reference Exam: No comparison FINDINGS: Real-time ultrasonographic evaluation with color-flow Doppler imaging is provided . The visualized left internal jugular vein, subclavian vein, axillary vein, brachial vein, radial vein, ulnar vein, basilic vein, and cephalic vein demonstrate appropriate compressibility and augmentation of flow. No perivascular fluid collections. No cystic or solid mass, or abnormal fluid collections. IMPRESSION: Negative for DVT in the left upper extremity. Dictated on: 08/20/2024 2:13 PM This report has been electronically signed and approved by the interpreting Radiologist. Normal Not Available Urinalysis macro (dipstick) panel (U)on 08-13-2024 Bilirubin, UA Negative Negative - 4(70) +++ mg/dL [facility] Blood, UA Negative Negative - 50 Jd/mcL [facility] Clarity, UA Clear [facility] Color, UA Yellow [facility] Glucose, UA Negative Negative - 1999(110) ++++ mg/dL [facility] Interpretation and review of laboratory results Abnormal [facility] Ketones, UA Negative Negative - 160(16) ++++ mg/dL [facility] Leukocytes, UA Trace Negative - 500+++ Mookie/mcL [facility] Nitrite, UA Negative Negative - Positive [facility] pH, UA 7 5 - 9 [facility] e Protein, UA Negative Negative - 1999(20) ++++ mg/dL [facility] Spec Grav, UA 1.02 1 - 1.03 [facility] Urobilinogen, UA 0.2 0.2 - 12 mg/dL [facility] BASIC METABOLIC PANLon 08-05 Anion gap [Moles/Vol] 6 mmol/L Normal 5-15 [facility] Comment on above: Performed By: #### C MP, CBCA, 6-4, 4-8, 2-9, 87057-7 #### [facility] ([id number]) [address], [address] [place] [address] Calcium [Mass/Vol] 8.6 mg/dL Normal 8.5-10.5 [facility] Comment on above: Performed By: #### C MP, CBCA, 6-4, 2284-8, 2-9, 24523-8 #### [facility] ([id number]) [address], [address] [place] [address] Chloride [Moles/Vol] 108 mmol/L Normal 98-109 [facility] Comment on above: Performed By: #### C MP, CBCA, 2276-4, 2284-8, 9, 64412-5 #### [facility] ([id number]) [address] [address] CO2 [Moles/Vol] 24 mmol/L Normal 22-32 [facility] Comment on above: Performed By: #### C MP, CBCA, 2276-4, 2284-8, 2131-9, 98715-4 #### [facility] ([id number]) [address] [address] Creatinine [Mass/Vol] 0.52 mg/dL Normal 0.40-1.00 [facility] Comment on above: Result Comment: METH OD TRACEABLE TO IDMS STANDARD Performed By: #### C MP, CBCA, 6-4, 2284-8, 9, 07413-8 #### [facility] ([id number]) [address] [address] eGFR (CKD-EPI) NON-RACE DEPENDENT >90 Normal >59 [facility] Comment on above: Result Comment: Reported eGFR is based on the CKD-EPI 2020 equation that does not use a race coefficient. Performed By: #### C MP, CBCA, 2276-4, 2284-8, 9, 69047-3 #### [facility] ([id number]) [address] [address] Glucose [Mass/Vol] 81 mg/dL Normal 65-99 [facility] Comment on above: Performed By: #### C MP, CBCA, 2276-4, 2284-8, 2131-9, 99788-1 #### [facility] ([id number]) [address] [address] Potassium [Moles/Vol] 3.8 mmol/L Normal 3.5-5.0 [facility] Comment on above: Performed By: #### C MP, CBCA, 2276-4, 2284-8, 2131-9, 65379-7 #### [facility] ([id number]) [address], [address] [place] [address] Sodium [Moles/Vol] 138 mmol/L Normal 134-146 [facility] Comment on above: Performed By: #### C MP, CBCA, 2276-4, 2284-8, 2131-9, 96290-8 #### [facility] ([id number]) [address], [address] [place] [address] Urea nitrogen [Mass/Vol] 9 mg/dL Normal 5-23 [facility] Comment on above: Performed By: #### C MP, CBCA, 2276-4, 2284-8, 9, 22223-7 #### [facility] ([id number]) [address], [address] [place] [address] CBC AND AUTO DIFFon 08-05-20 24 ABSOLUTE BASOPHIL 0.0 X10E9/L Normal 0.0-0.2 [facility] Comment on above: Performed By: #### C MP, CBCA, 6-4, 2283-8, 9, 12606-1 #### [facility] ([id number]) [address], [address] [place] [address] ABSOLUTE NEUTROPHIL 5.0 X10E9/L Normal 1.5-6.6 [facility] Comment on above: Performed By: #### C MP, CBCA, 2276-4, 2284-8, 2131-9, 69699-5 #### [facility] ([id number]) [address], [address] [place] [address] Basophils/100 WBC (Bld) 0.2 % Normal [facility] Comment on above: Performed By: #### C MP, CBCA, 2276-4, 2284-8, 2131-9, 95375-2 #### [facility] ([id number]) [address] [address] [place] [address] Eosinophils (Bld) [#/Vol] 0.1 10*3/uL Normal 0.0-0.4 [facility] Comment on above: Performed By: #### C MP, CBCA, 2276-4, 2284-8, 9, 90061-6 #### [facility] ([id number]) [address] [address] [place] [address] Eosinophils/100 WBC (Bld) 1.1 % Normal [facility] Comment on above: Performed By: #### C MP, CBCA, 6-4, 2283-8, 2132-06, 83141-8 #### [facility] ([id number]) [address] [address] [place] [address] Erythrocyte distribution width (RBC) [Ratio] 13.4 % Normal 11.5-15.0 [facility] Comment on above: Performed By: #### C MP, CBCA, 2276-4, 2283-8, 2132-06, 97336-3 #### [facility] ([id number]) [address] [address] Hematocrit (Bld) [Volume fraction] 29.5 % Low 35-47 [facility] Comment on above: Performed By: #### C MP, CBCA, 2276-4, 2284-8, 2132-06, 27732-4 #### [facility] ([id number]) [address] [address] [place] [address] Hemoglobin (Bld) [Mass/Vol] 10.4 g/dL Low 11.7-15.5 [facility] Comment on above: Performed By: #### C MP, CBCA, 2276-4, 2284-8, 9, 52627-1 #### [facility] ([id number]) [address], [address] [place] [address] Lymphocytes (Bld) [#/Vol] 1.3 10*3/uL Normal 1.0-3.5 [facility] Comment on above: Performed By: #### C MP, CBCA, 2276-4, 4-8, 9, 28850-4 #### [facility] ([id number]) [address], [facility] [address] [place] [address] Lymphocytes/100 WBC (Bld) 17.0 % Normal [facility] Comment on above: Performed By: #### C MP, CBCA, 6-4, 2283-8, 2132-06, 25450-2 #### [facility] ([id number]) [address] [address] [place] [address] MCH (RBC) [Entitic mass] 30.7 pg Normal 27-34 [facility] Comment on above: Performed By: #### C MP, CBCA, 6-4, 2283-8, 2132-06, 73612-9 #### [facility] ([id number]) [address] [address] [place] [address] MCHC (RBC) [Mass/Vol] 35.3 g/dL Normal 32-36 [facility] Comment on above: Performed By: #### C MP, CBCA, 6-4, 2283-8, 2132-06, 77408-9 #### [facility] ([id number]) [address] [address] [place] [address] MCV (RBC) [Entitic vol] 87 fL Normal 80-100 [facility] Comment on above: Performed By: #### C MP, CBCA, 2276-4, 2284-8, 2131-9, 16504-6 #### [facility] ([id number]) [address], [facility] [address] [place] [address] Monocytes (Bld) [#/Vol] 1.0 10*3/uL High 0-0.9 [facility] Comment on above: Performed By: #### C MP, CBCA, 2276-4, 2284-8, 2131-9, 83519-9 #### [facility] ([id number]) [address], [address] [place] [address] Monocytes/100 WBC (Bld) 13.9 % Normal [facility] Comment on above: Performed By: #### C MP, CBCA, 2276-4, 2284-8, 2131-9, 24959-4 #### [facility] ([id number]) [address], [facility] [address] [place] [address] Neutrophils/100 WBC (Bld) 67.8 % Normal [facility] Comment on above: Performed By: #### C MP, CBCA, 2276-4, 2284-8, 2131-9, 83343-3 #### [facility] ([id number]) [address], [address] [place] [address] Platelet mean volume (Bld) [Entitic vol] 7.7 fL Normal 7-12 [facility] Comment on above: Performed By: #### C MP, CBCA, 2276-4, 2284-8, 2131-9, 69737-6 #### [facility] ([id number]) [address], [address] [place] [address] Platelets (Bld) [#/Vol] 179 10*3/uL Normal 150-450 [facility] Comment on above: Performed By: #### C MP, CBCA, 2276-4, 2284-8, 2131-9, 41852-4 #### [facility] ([id number]) [address], [address] [place] [address] RBC COUNT 3.39 X10E12/L Low 3.80-5.20 [facility] Comment on above: Performed By: #### C MP, CBCA, 2276-4, 2284-8, 2131-9, 44073-0 #### [facility] ([id number]) [address], [address] [place] [address] WBC (Bld) [#/Vol] 7.4 10*3/uL Normal 4.0-11.0 [facility] Comment on above: Performed By: #### C MP, CBCA, 6-4, 2284-8, 2131-9, 18967-0 #### [facility] ([id number]) [address], [address] [place] [address] CBC AND AUTO DIFFon 08-04-20 24 ABSOLUTE BASOPHIL 0.0 X10E9/L Normal 0.0-0.2 [facility] Comment on above: Performed By: #### C MP, CBCA, 6-4, 4-8, 2131-9, 75130-0 #### [facility] ([id number]) [address], [address] [place] [address] ABSOLUTE NEUTROPHIL 8.1 X10E9/L High 1.5-6.6 [facility] Comment on above: Performed By: #### C MP, CBCA, 6-4, 4-8, 2131-9, 53748-4 #### [facility] ([id number]) [address], [address] [place] [address] Basophils/100 WBC (Bld) 0.2 % Normal [facility] Comment on above: Performed By: #### C MP, CBCA, 6-4, 2284-8, 2131-9, 81943-3 #### [facility] ([id number]) [address], [address] [place] [address] Eosinophils (Bld) [#/Vol] 0.0 10*3/uL Normal 0.0-0.4 [facility] Comment on above: Performed By: #### C MP, CBCA, 2276-4, 2284-8, 2131-9, 75618-2 #### [facility] ([id number]) [address] [address] Eosinophils/100 WBC (Bld) 0.2 % Normal [facility] Comment on above: Performed By: #### C MP, CBCA, 6-4, 2284-8, 9, 62212-1 #### [facility] ([id number]) [address] [address] Erythrocyte distribution width (RBC) [Ratio] 13.3 % Normal 11.5-15.0 [facility] Comment on above: Performed By: #### C MP, CBCA, 6-4, 4-8, 9, 65860-8 #### [facility] ([id number]) [address] [address] Hematocrit (Bld) [Volume fraction] 29.5 % Low 35-47 [facility] Comment on above: Performed By: #### C MP, CBCA, 6-4, 2283-8, 2132-06, 16250-0 #### [facility] ([id number]) [address] [address] Hemoglobin (Bld) [Mass/Vol] 10.4 g/dL Low 11.7-15.5 [facility] Comment on above: Performed By: #### C MP, CBCA, 2276-4, 2284-8, 2131-9, 95913-6 #### [facility] ([id number]) [address] [address] Lymphocytes (Bld) [#/Vol] 1.2 10*3/uL Normal 1.0-3.5 [facility] Comment on above: Performed By: #### C MP, CBCA, 2276-4, 2284-8, 2132-06, 83062-7 #### [facility] ([id number]) [address], [address] [place] [address] Lymphocytes/100 WBC (Bld) 11.7 % Normal [facility] Comment on above: Performed By: #### C MP, CBCA, 2275-4, 8, 2132-06, 36594-6 #### [facility] ([id number]) [address], [address] [address] MCH (RBC) [Entitic mass] 30.5 pg Normal 27-34 [facility] Comment on above: Performed By: #### C MP, CBCA, 2275-, 2284-05, 2132-06, 99965-8 #### [facility] ([id number]) [address], [address] [address] MCHC (RBC) [Mass/Vol] 35.4 g/dL Normal 32-36 [facility] Comment on above: Performed By: #### C MP, CBCA, 2275-, 2284-05, 2132-06, 17634-7 #### [facility] ([id number]) [address], [facility] [address] [place] [address] MCV (RBC) [Entitic vol] 86 fL Normal 80-100 [facility] Comment on above: Performed By: #### C MP, CBCA, 2275-4, 2284-05, 2132-06, 90222-5 #### [facility] ([id number]) [address] [address] [place] [address] Monocytes (Bld) [#/Vol] 1.0 10*3/uL High 0-0.9 [facility] Comment on above: Performed By: #### C MP, CBCA, 2275-4, 2284-05, 2132-06, 36377-2 #### [facility] ([id number]) [address], [address] [place] [address] Monocytes/100 WBC (Bld) 9.2 % Normal [facility] Comment on above: Performed By: #### C MP, CBCA, 2276-4, 2284-8, 213-9, 41749-6 #### [facility] ([id number]) [address], [address] [place] [address] Neutrophils/100 WBC (Bld) 78.7 % Normal [facility] Comment on above: Performed By: #### C MP, CBCA, 2276-4, 2284-8, 2131-9, 19049-9 #### [facility] ([id number]) [address], [address] [place] [address] Platelet mean volume (Bld) [Entitic vol] 7.9 fL Normal 7-12 [facility] Comment on above: Performed By: #### C MP, CBCA, 2276-4, 2284-8, 2131-9, 39499-8 #### [facility] ([id number]) [address], [address] [place] [address] Platelets (Bld) [#/Vol] 181 10*3/uL Normal 150-450 [facility] Comment on above: Performed By: #### C MP, CBCA, 2276-4, 2284-8, 2131-9, 76875-2 #### [facility] ([id number]) [address], [address] [place] [address] RBC COUNT 3.41 X10E12/L Low 3.80-5.20 [facility] Comment on above: Performed By: #### C MP, CBCA, 2276-4, 2284-8, 2131-9, 99929-6 #### [facility] ([id number]) [address], [address] [place] [address] WBC (Bld) [#/Vol] 10.3 10*3/uL Normal 4.0-11.0 [facility] Comment on above: Performed By: #### C MP, CBCA, 2276-4, 2284-8, 2131-9, 81353-2 #### [facility] ([id number]) [address], [address] [place] [address] COMPREHENSIVE METABOLIC PANE Vini 08-04-2024 Albumin [Mass/Vol] 3.3 g/dL Normal 3.2-5.3 [facility] Comment on above: Performed By: #### C MP, CBCA, 2276-4, 2284-8, 2131-9, 87086-8 #### [facility] ([id number]) [address], [address] [place] [address] ALP [Catalytic activity/Vol] 88 U/L Normal 39-130 [facility] Comment on above: Performed By: #### C MP, CBCA, 2276-4, 2284-8, 2131-9, 33292-6 #### [facility] ([id number]) [address], [address] [place] [address] ALT [Catalytic activity/Vol] 9 U/L Normal 0-31 [facility] Comment on above: Performed By: #### C MP, CBCA, 2276-4, 2284-8, 2131-9, 96009-0 #### [facility] ([id number]) [address], [address] [place] [address] Anion gap [Moles/Vol] 10 mmol/L Normal 5-15 [facility] Comment on above: Performed By: #### C MP, CBCA, 2276-4, 2284-8, 2131-9, 78234-5 #### [facility] ([id number]) [address], [address] [place] [address] AST [Catalytic activity/Vol] 17 U/L Normal 0-41 [facility] Comment on above: Performed By: #### C MP, CBCA, 2276-4, 2284-8, 2131-9, 14283-8 #### [facility] ([id number]) [address], [address] [place] [address] Bilirubin [Mass/Vol] 0.5 mg/dL Normal 0.3-1.2 [facility] Comment on above: Performed By: #### C MP, CBCA, 2276-4, 2284-8, 2131-9, 51288-1 #### [facility] ([id number]) [address], [address] [place] [address] Calcium [Mass/Vol] 8.4 mg/dL Low 8.5-10.5 [facility] Comment on above: Performed By: #### C MP, CBCA, 2276-4, 2284-8, 2131-9, 22597-2 #### [facility] ([id number]) [address], [address] [place] [address] Chloride [Moles/Vol] 106 mmol/L Normal 98-109 [facility] Comment on above: Performed By: #### C MP, CBCA, 2276-4, 2284-8, 2131-9, 48722-1 #### [facility] ([id number]) [address], [address] [place] [address] CO2 [Moles/Vol] 20 mmol/L Low 22-32 [facility] Comment on above: Performed By: #### C MP, CBCA, 2276-4, 2284-8, 2131-9, 36534-4 #### [facility] ([id number]) [address], [address] [place] [address] Creatinine [Mass/Vol] 0.54 mg/dL Normal 0.40-1.00 [facility] Comment on above: Result Comment: METH OD TRACEABLE TO IDMS STANDARD Performed By: #### C MP, CBCA, 2276-4, 2284-8, 2131-9, 62195-8 #### [facility] ([id number]) [address] [address] [place] [address] eGFR (CKD-EPI) NON-RACE DEPENDENT >90 Normal >59 [facility] Comment on above: Result Comment: Reported eGFR is based on the CKD-EPI 2020 equation that does not use a race coefficient. Performed By: #### C MP, CBCA, 2276-4, 2284-8, 9, 46624-3 #### [facility] ([id number]) [address], [facility] [address] [place] [address] Glucose [Mass/Vol] 83 mg/dL Normal 65-99 [facility] Comment on above: Performed By: #### C MP, CBCA, 6-4, 2284-8, 9, 60833-9 #### [facility] ([id number]) [address], [facility] [address] [place] [address] Potassium [Moles/Vol] 3.5 mmol/L Normal 3.5-5.0 [facility] Comment on above: Performed By: #### C MP, CBCA, 2276-4, 228-8, 9, 07299-5 #### [facility] ([id number]) [address] [address] [place] [address] Protein [Mass/Vol] 6.1 g/dL Normal 6.0-8.0 [facility] Comment on above: Performed By: #### C MP, CBCA, 2276-4, 2284-8, 2131-9, 25327-9 #### [facility] ([id number]) [address] [address] [place] [address] Sodium [Moles/Vol] 136 mmol/L Normal 134-146 [facility] Comment on above: Performed By: #### C MP, CBCA, 2276-4, 2284-8, 2132-9, 64992-2 #### [facility] ([id number]) [address], [address] [place] [address] Urea nitrogen [Mass/Vol] 7 mg/dL Normal 5-23 [facility] Comment on above: Performed By: #### C MP, CBCA, 2276-4, 2284-8, 2-9, 91275-1 #### [facility] ([id number]) [address], [address] [place] [address] DRUG SCREEN, URINEon 024 AMPHETAMINE/METHAMP Negative Normal NEG [facility] Comment on above: Result Comment: AMPH /METH screening cut off = 1000 ng/mL Performed By: #### D YOUSSEF #### [facility] ([id number]) [address], [address] [place] [address] BARBITURATES Negative Normal NEG [facility] Comment on above: Result Comment: Erica iturates screening cut off value = 200 ng/mL Performed By: #### D YOUSSEF #### [facility] ([id number]) [address], [address] [place] [address] BENZODIAZEPINES Negative Normal NEG [facility] Comment on above: Result Comment: Jorge odiazepines screening cut off value = 200 ng/mL Performed By: #### D YOUSSEF #### [facility] ([id number]) [address], [address] [place] [address] CANNABINOIDS Negative Normal NEG [facility] Comment on above: Result Comment: Radha abinoids/THC screening cut off value = 50 ng/mL Performed By: #### D YOUSSEF #### [facility] ([id number]) [address], [address] [place] [address] COCAINE METABOLITE Negative Normal NEG [facility] Comment on above: Result Comment: Coca ine screening cut off value = 300 ng/mL Performed By: #### D YOUSSEF #### [facility] ([id number]) [address], [address] [place] [address] ECSTASY Negative Normal NEG [facility] Comment on above: Result Comment: Ecst asy screening cut off value = 500 ng/mL This report is intended for use in clinical monitoring or management of patients. Performed By: #### D YOUSSEF #### [facility] ([id number]) [address], [address] [place] [address] METHADONE Negative Normal [facility] Comment on above: Result Comment: Meth adone screening cut off value = 300 ng/mL. Performed By: #### D YOUSSEF #### [facility] ([id number]) [address], [address] [place] [address] OPIATES Negative Normal NEG [facility] Comment on above: Result Comment: Opia torrey screening cut off value = 300 ng/mL NOTE: This test is used for the detection of codeine, hydrocodone (>1000 ng/mL), morphine and hydromorphone (>900 ng/mL) in urine. Performed By: #### D YOUSSEF #### [facility] ([id number]) [address], [address] [place] [address] OXYCODONE Negative Normal NEG [facility] Comment on above: Result Comment: Oxyc odone screening cut off value = 300 ng/mL NOTE: This test is used for the detection of oxycodone and oxymorphone in urine. Performed By: #### D YOUSSEF #### [facility] ([id number]) [address], [address] [place] [address] PHENCYCLIDINE Negative Normal [facility] Comment on above: Result Comment: Phen cyclidine screening cut off value = 25 ng/mL Performed By: #### D YOUSSEF #### [facility] ([id number]) [address], [address] [place] [address] FERRITINon 11-03-2024 Ferritin [Mass/Vol] 15 ng/mL Normal 11-307 [facility] Comment on above: Performed By: #### C MP, CBCA, 2276-4, 2284-8, 2132-9, 03680-7 #### [facility] ([id number]) [address] [place] [address] Folate [Mass/Vol]on 08-04-20 24 FOLIC ACID 16.4 ng/mL Normal >5.8 [facility] Comment on above: Result Comment: NEW REFERENCE RANGE Performed By: #### C MP, CBCA, 2276-4, 2284-8, 2132-9, 31285-6 #### [facility] ([id number]) [address] [place] [address] Glucose Glucometer (BldC) [M ass/Vol]on 08-04-2024 Glucose [Mass/Vol] 82 mg/dL Normal 65-99 [facility] MR ABDOMEN WO CONTon 024 MR ABDOMEN WO CONT MR ABDOMEN WO CONT MR PELVIS WO CONT, MR ABDOMEN WO CONT CLINICAL INDICATION: Appendicitis suspected () . COMPARISON: CT abdomen pelvis 08/03/2024 TECHNIQUE: Multiplanar, multisequence, noncontrast MRI performed according to institutional appendicitis protocol. FINDINGS: LIVER AND BILIARY: No focal lesion. No biliary dilatation. Normal appearance of the gallbladder. PANCREAS: No focal lesion or ductal dilatation. SPLEEN: Appropriate appearance for gravid status. ADRENALS: No focal lesion. KIDNEYS: Severe right collecting system dilatation. Right upper pole striated nephrogram with restricted diffusion consistent with acute pyelonephritis. GI TRACT AND PERITONEUM: No acute bowel obstruction. No convincing wall thickening. Appendiceal candidate within normal limits. No focal pericecal inflammatory change. VASCULATURE: No acute thrombus. LYMPH NODES: No enlarged lymph nodes. MUSCULOSKELETAL: Normal marrow signal. PELVIS: Cephalic presentation. Fetus, placenta grossly within normal limits for nondedicated technique. IMPRESSION: Severe right hydronephrosis. No obstructive calculus on recent CT 08/03/2024. There is a right-sided upper pole pyelonephritis. No MR evidence of acute appendicitis. Clinically significant results were instructed to call for clinical service on 08/04/2024 at 10:11 AM. This will be documented in [employer] results tracking once complete. Finalized by Douglas Olivierh on 08/04/2024 10:12 AM Normal [facility] MR PELVIS WO CONTon 08-04-20 24 MR PELVIS WO CONT MR PELVIS WO CONT MR PELVIS WO CONT, MR ABDOMEN WO CONT CLINICAL INDICATION: Appendicitis suspected () . COMPARISON: CT abdomen pelvis 08/03/2024 TECHNIQUE: Multiplanar, multisequence, noncontrast MRI performed according to institutional appendicitis protocol. FINDINGS: LIVER AND BILIARY: No focal lesion. No biliary dilatation. Normal appearance of the gallbladder. PANCREAS: No focal lesion or ductal dilatation. SPLEEN: Appropriate appearance for gravid status. ADRENALS: No focal lesion. KIDNEYS: Severe right collecting system dilatation. Right upper pole striated nephrogram with restricted diffusion consistent with acute pyelonephritis. GI TRACT AND PERITONEUM: No acute bowel obstruction. No convincing wall thickening. Appendiceal candidate within normal limits. No focal pericecal inflammatory change. VASCULATURE: No acute thrombus. LYMPH NODES: No enlarged lymph nodes. MUSCULOSKELETAL: Normal marrow signal. PELVIS: Cephalic presentation. Fetus, placenta grossly within normal limits for nondedicated technique. IMPRESSION: Severe right hydronephrosis. No obstructive calculus on recent CT 08/03/2024. There is a right-sided upper pole pyelonephritis. No MR evidence of acute appendicitis. Clinically significant results were instructed to call for clinical service on 08/04/2024 at 10:11 AM. This will be documented in [employer] results tracking once complete. Finalized by Douglas Olivierh on 08/04/2024 10:12 AM Normal [facility] PROTIME AND INRon 08-04-2024 INR Coag (PPP) [Relative time] 1.0 {INR} Normal 0.8-1.1 [facility] Comment on above: Performed By: #### C MP, CBCA, 2276-4, 2284-8, 2132-9, 31226-4 #### [facility] ([id number]) [address], [address] [place] [address] PT Coag (PPP) [Time] 11.8 s Normal 9.8-13.2 [facility] Comment on above: Performed By: #### C MP, CBCA, 2276-4, 2284-8, 2131-9, 25502-4 #### [facility] ([id number]) [address], [address] [place] [address] STREP B SCREEN CULTUREon S. agalactiae Org specific cx Ql (Vag+Rectum) CULTURE RESULTS NEGATIVE FOR GROUP B STREPTOCOCCUS BY NUCLEIC ACID AMPLIFICATION Normal [facility] Comment on above: Performed By: #### C MP, CBCA, 2276-4, 2284-8, 9, 92899-0 #### [facility] ([id number]) [address], [address] [place] [address] T. pallidum IgG+IgM IA Ql (S )on 08-04-2024 Syphilis Total <0.2 Normal 0.0-0.8 [facility] Comment on above: Result Comment: NON REACTIVE No serologic evidence of infection to Treponema pallidum (syphilis). Repeat testing may be considered in patients with suspected acute or primary syphilis in 2 to 4 weeks. Performed By: #### C MP, CBCA, 2276-4, 4-8, 9, 95071-6 #### [facility] ([id number]) [address], [address] [place] [address] URINALYSISon 08-04-2024 Bilirubin Ql (U) Negative Normal NEG [facility] Comment on above: Performed By: #### U A #### [facility] ([id number]) [address], [address] [place] [address] BLOOD/HGB Negative Normal NEG [facility] Comment on above: Performed By: #### U A #### [facility] ([id number]) [address], [address] [place] [address] Color (U) YELLOW Normal YELLOW [facility] Comment on above: Performed By: #### U A #### [facility] ([id number]) [address], [address] [place] [address] Glucose Ql (U) Negative Normal NEG [facility] Comment on above: Performed By: #### U A #### [facility] ([id number]) [address], [address] [place] [address] Ketones Ql (U) 20 mg/dL Abnormal NEG [facility] Comment on above: Performed By: #### U A #### [facility] ([id number]) [address], [address] [place] [address] Leukocyte esterase Test strip Ql (U) Small Abnormal NEG [facility] Comment on above: Performed By: #### U A #### [facility] ([id number]) [address], [address] [place] [address] MUCOUS PRESENT Abnormal NONE [facility] Comment on above: Performed By: #### U A #### [facility] ([id number]) [address], [address] [place] [address] Nitrite Ql (U) Negative Normal NEG [facility] Comment on above: Performed By: #### U A #### [facility] ([id number]) [address], [address] [place] [address] pH (U) 6.5 [pH] Normal 5.0-8.5 [facility] Comment on above: Performed By: #### U A #### [facility] ([id number]) [address], [address] [place] [address] Protein Ql (U) Trace Abnormal NEG [facility] Comment on above: Performed By: #### U A #### [facility] ([id number]) [address], [address] [place] [address] R.B.CELLS 1 /hpf Normal 0-5 [facility] Comment on above: Performed By: #### U A #### [facility] ([id number]) [address], [address] [place] [address] Specific gravity (U) [Rel density] 1.016 Normal 1.003-1.035 [facility] Comment on above: Performed By: #### U A #### [facility] ([id number]) [address], [address] [place] [address] SQUAMOUS EPITHELIUM 3 /hpf Normal 0-5 [facility] Comment on above: Performed By: #### U A #### [facility] ([id number]) [address], [address] [place] [address] TURBIDITY CLEAR Normal CLEAR [facility] Comment on above: Performed By: #### U A #### [facility] ([id number]) [address] [place] [address] Urobilinogen (U) [Mass/Vol] mg/dL Normal <1.1 [facility] Comment on above: Performed By: #### U A #### [facility] ([id number]) [address], [address] [place] [address] W.B.CELLS 2 /hpf Normal 0-5 [facility] Comment on above: Performed By: #### U A #### [facility] ([id number]) [address] [place] [address] URINE CULTUREon 08-04-2024 Bacteria identified Cx Nom (U) CULTURE RESULTS NO GROWTH AT <1000 CFU/mL Normal [facility] Comment on above: Performed By: #### C MP, CBCA, 2276-4, 2284-8, 2132-9, 93643-6 #### [facility] ([id number]) [address], [address] [place] [address] VITAMIN B12on 08-04-2024 Cobalamin (Vitamin B12) [Mass/Vol] 138 pg/mL Low 180-914 [facility] Comment on above: Performed By: #### C MP, CBCA, 2276-4, 2284-8, 2132-9, 75214-8 #### [facility] ([id number]) [address], [address] [place] [address] Urinalysis macro (dipstick) panel (U)on 07-29-2024 Bilirubin, UA Negative Negative - (70) +++ mg/dL [facility] Blood, UA Negative Negative - 50 Jd/mcL [facility] Clarity, UA Clear [facility] Healthid re Color, UA Yellow [facility] Healthcar e Glucose, UA Negative Negative - 1999(110) ++++ mg/dL [facility] Interpretation and review of laboratory results Normal [facility] Ketones, UA Negative Negative - 160(16) ++++ mg/dL [facility] Leukocytes, UA Negative Negative - 500+++ Mookie/mcL [facility] Nitrite, UA Negative Negative - Positive [facility] pH, UA 7 5 - 9 [facility] Protein, UA Negative Negative - 1999(20) ++++ mg/dL [facility] Spec Grav, UA 1.015 1 - 1.03 [facility] Urobilinogen, UA 0.2 0.2 - 12 mg/dL [facility] IGP,APTIMA HPV,AGE GDLNon AGE GDLN ACOG TESTING Note . [facility] Comment on above: TESTS RESULT FLAG UN ITS REF RANGE LAB Clinician Provided Cytology Information Source.............Cervix Other.............. No. of containers..01 ThinPrep Vial Age Algo ACOG Torrey... -30 10 FLAG LEGEND: L-Low Normal,H-High Normal,LL-Alert Low,HH-Alert High <-Panic Low,>-Panic High,A-Abnormal,AA-Critical Abnormal Performed at: 01 =G [address] [address] Leticia Longo MD, IGP, RFX APTIMA HPV ASCU Note . [facility] Comment on above: TESTS RESULT FLAG UN ITS REF RANGE LAB DIAGNOSIS: 02 NEGATIVE FOR INTRAEPITHELIAL LESION OR MALIGNANCY. THIS SPECIMEN WAS RESCREENED PART OF OUR EMOTIONAL DISABILITIES TEACHER PROGRAM. Specimen adequacy: 02 Satisfactory for evaluation. No endocervical component is identified. Performed by: Ehsan Jamison, Electric Meter Tester Helper (ASC) QC reviewed by: 02 Nicole Houston, Electric Meter Tester Helper . 02 Note: Note 02 The Pap [...] <-Panic Low,>-Panic High,A-Abnormal,AA-Critical Abnormal Performed at: [address] [address] Leticia Longo MD, Performed at: =[address] [id number] [place] Tender: Leticia Longo MD, Phone: [phone] Performed at: [address] [id number] [place] Tender: Leticia Longo MD, Phone: [phone] SP[facility]A-ALONE CERVIX [facility] Healthcar e URETHRITIS/DISCHARGE PLUS VA GINITIS (HTRX)on 07-05-2024 ATOPOBIUM VAGINAE 0.000 [facility] ATOPOBIUM VAGINAE Not detected [facility] BVAB 2,3 (BACTERIAL VAGINOSIS ASSOCIATED BACTERIA 2, 3); MOBILUNCUS SPP 0.000 [facility] BVAB 2,3 (BACTERIAL VAGINOSIS ASSOCIATED BACTERIA 2, 3); MOBILUNCUS SPP Not detected [facility] ASHLEY ALBICANS, PARAPSILOSIS, TROPICALIS 0.000 [facility] ASHLEY ALBICANS, PARAPSILOSIS, TROPICALIS Not detected [facility] ASHLEY GLABRATA 0.000 [facility] a lthcare ASHLEY GLABRATA Not detected [facility] e[facility] ASHLEY KRUSEI 0.000 [facility] ASHLEY KRUSEI [facility] CHLAMYDIA TRACHOMATIS 0.000 [facility] CHLAMYDIA TRACHOMATIS Not detected [facility] GARDNERELLA VAGINALIS 0.000 [facility] GARDNERELLA [...] 24 ABSOLUTE BASOPHIL 0.0 X10E9/L Normal 0.0-0.2 [facility] Comment on above: Performed By: #### Dar VALENTINE CMP, #### [facility] ([id number]) [address] [place] [address] ABSOLUTE NEUTROPHIL 7.1 X10E9/L High 1.5-6.6 [facility] Comment on above: Performed By: #### Dar VALENTINE CMP, #### [facility] ([id number]) [address] [place] [address] Basophils/100 WBC (Bld) 0.2 % Normal [facility] Comment on above: Performed By: #### Dar VALENTINE CMP, #### [facility] ([id number]) [address] [place] [address] Eosinophils (Bld) [#/Vol] 0.0 10*3/uL Normal 0.0-0.4 [facility] Comment on above: Performed By: #### Dar VALENTINE CMP, #### [facility] ([id number]) [address] [place] [address] 11617 Eosinophils/100 WBC (Bld) 0.4 % Normal [facility] Comment on above: Performed By: #### Dar VALENTINE CMP, #### [facility] ([id number]) [address] [place] [address] Erythrocyte distribution width (RBC) [Ratio] 13.4 % Normal 11.5-15.0 [facility] Comment on above: Performed By: #### Dar VALENTINE CMP, #### [facility] ([id number]) [address] [place] [address]260 Hematocrit (Bld) [Volume fraction] 39.9 % Normal 35-47 [facility] Comment on above: Performed By: #### Dar VALENTINE CMP, #### [facility] ([id number]) [address] [place] [address]291 Hemoglobin (Bld) [Mass/Vol] 13.9 g/dL Normal 11.7-15.5 [facility] Comment on above: Performed By: #### Dar VALENTINE CMP, #### [facility] ([id number]) [address] [place] [address]5667 Lymphocytes (Bld) [#/Vol] 2.0 10*3/uL Normal 1.0-3.5 [facility] Comment on above: Performed By: #### Dar VALENTINE CMP, #### [facility] ([id number]) [address] [place] [address]9430 Lymphocytes/100 WBC (Bld) 20.6 % Normal [facility] Comment on above: Performed By: #### Dar VALENTINE CMP, #### [facility] ([id number]) [address] [place] [address] 35215 MCH (RBC) [Entitic mass] 29.4 pg Normal 27-34 [facility] Comment on above: Performed By: #### Dar VALENTINE, CMP, #### [facility] ([id number]) [address] [place] [address] 73447 MCHC (RBC) [Mass/Vol] 34.9 g/dL Normal 32-36 [facility] Comment on above: Performed By: #### Dar VALENTINE CMP, #### [facility] ([id number]) [address] [place] [address] 10737 MCV (RBC) [Entitic vol] 84 fL Normal 80-100 [facility] Comment on above: Performed By: #### Dar VALENTINE CMP, #### [facility] ([id number]) [address] [place] [address] 77277 Monocytes (Bld) [#/Vol] 0.7 10*3/uL Normal 0-0.9 [facility] Comment on above: Performed By: #### Dar VALENTINE CMP, #### [facility] ([id number]) [address] [place] [address] 61113 Monocytes/100 WBC (Bld) 7.4 % Normal [facility] Comment on above: Performed By: #### Dar VALENTINE CMP, #### [facility] ([id number]) [address] [place] [address] 31635 Neutrophils/100 WBC (Bld) 71.4 % Normal [facility] Comment on above: Performed By: #### Dar VALENTINE [facility], #### [facility] ([id number]) [address] [place] [address] 44654 Platelet mean volume (Bld) [Entitic vol] 9.0 fL Normal 7-12 [facility] Comment on above: Performed By: #### Dar VALENTINE CMP, #### [facility] ([id number]) [address] [place] [address] 67496 Platelets (Bld) [#/Vol] 194 10*3/uL Normal 150-450 [facility] Comment on above: Performed By: #### Dar VALENTINE CMP, #### [facility] ([id number]) [address] [place] [address] 33946 RBC COUNT 4.74 X10E12/L Normal 3.80-5.20 [facility] Comment on above: Performed By: #### C BCA, CMP, #### [facility] ([id number]) [address] [place] [address] 18882 WBC (Bld) [#/Vol] 10.0 10*3/uL Normal 4.0-11.0 [facility] Comment on above: Performed By: #### C BCA, CMP, #### [facility] ([id number]) [address] [place] [address] 18262 COMPREHENSIVE METABOLIC PANE Vini 03-11-2024 Albumin [Mass/Vol] 4.2 g/dL Normal 3.2-5.3 [facility] Comment on above: Performed By: #### C BCA, CMP, #### [facility] ([id number]) [address] [place] [address] 54257 ALP [Catalytic activity/Vol] 47 U/L Normal 39-130 [facility] Comment on above: Performed By: #### C BCA, CMP, #### [facility] ([id number]) [address] [place] [address] 88067 ALT [Catalytic activity/Vol] 15 U/L Normal 0-31 [facility] Comment on above: Performed By: #### C BCA, CMP, #### [facility] ([id number]) [address] [place] [address] 86180 Anion gap [Moles/Vol] 7 mmol/L Normal 5-15 [facility] Comment on above: Performed By: #### C BCA, CMP, #### [facility] ([id number]) [address] [place] [address] 67898 AST [Catalytic activity/Vol] 15 U/L Normal 0-41 [facility] Comment on above: Performed By: #### C BCA, CMP, #### [facility] ([id number]) [address] [place] [address] 01017 Bilirubin [Mass/Vol] 0.5 mg/dL Normal 0.3-1.2 [facility] Comment on above: Performed By: #### C MEME CMP, #### [facility] ([id number]) [address] [place] [address] 51140 Calcium [Mass/Vol] 8.7 mg/dL Normal 8.5-10.5 [facility] Comment on above: Performed By: #### C AUREA VALENTINE, #### [facility] ([id number]) [address] [place] [address] 58518 Chloride [Moles/Vol] 103 mmol/L Normal 98-109 [facility] Comment on above: Performed By: #### C AUREA VALENTINE, #### [facility] ([id number]) [address] [place] [address] 26560 CO2 [Moles/Vol] 22 mmol/L Normal 22-32 [facility] Comment on above: Performed By: #### C MEME CMP, #### [facility] ([id number]) [address] [place] [address] 05007 Creatinine [Mass/Vol] 0.72 mg/dL Normal 0.40-1.00 [facility] Comment on above: Result Comment: METH OD TRACEABLE TO IDMS STANDARD Performed By: #### C MEME CMP, #### [facility] ([id number]) [address] [place] [address] 71097 eGFR (CKD-EPI) NON-RACE DEPENDENT >90 Normal >59 [facility] Comment on above: Result Comment: Reported eGFR is based on the CKD-EPI 2020 equation that does not use a race coefficient. Performed By: #### C BCA, CMP, #### [facility] ([id number]) [address] [place] [address] 94511 Glucose [Mass/Vol] 81 mg/dL Normal 65-99 [facility] Comment on above: Performed By: #### C BCA, CMP, #### [facility] ([id number]) [address] [place] [address] 29189 Potassium [Moles/Vol] 3.7 mmol/L Normal 3.5-5.0 [facility] Comment on above: Performed By: #### C BCA, CMP, #### [facility] ([id number]) [address] [place] [address] 84604 Protein [Mass/Vol] 7.4 g/dL Normal 6.0-8.0 [facility] Comment on above: Performed By: #### C BCA, [facility], #### [facility] ([id number]) [address] [place] [address] 34718 Sodium [Moles/Vol] 132 mmol/L Low 134-146 [facility] Comment on above: Performed By: #### C BCA, CMP, #### [facility] ([id number]) [address] [place] [address] 21746 Urea nitrogen [Mass/Vol] 14 mg/dL Normal 5-23 [facility] Comment on above: Performed By: #### C BCA, CMP, #### [facility] ([id number]) [address] [place] [address] 31107 HCG ( test) Ql (U)o n 03-11-2024 Beta HCG ( test) Ql (U) Positive Abnormal NEG [facility] Comment on above: Performed By: #### 2 106-3 #### [facility] ([id number]) [address] [place] [address] 37838 HCG.beta subunit IA 3rd IS Q non 03-11-2024 HCG.beta subunit Qn 163706 m[IU]/mL Normal [facility] Comment on above: Result Comment: NEW [...] nontrophoblastic neoplasms. Performed By: #### C BCA, [facility], 61055-0 #### [facility] ([id number]) [address] [place] [address] 13438 URINE CULTUREon 03-11-2024 Bacteria identified Cx Nom (U) CULTURE RESULTS <10,000 ORGANISMS/ML NORMAL URO GENITAL RICK Normal [facility] Comment on above: Performed By: #### 6 30-4 #### [facility] ([id number]) [address] [place] [address], [address] [place] [address] URN MACROSCOPIC NURon 2023 BILIRUBIN FAWAD Negative Normal NEG [facility] Comment on above: Performed By: #### N UM #### [facility] ([id number]) [address] [place] [address] 16945 BLOOD/HGB FAWAD Negative Normal NEG [facility] Comment on above: Performed By: #### N UM #### [facility] ([id number]) [address] [place] [address] 20158 GLUCOSE FAWAD Negative Normal NEG [facility] Comment on above: Performed By: #### N UM #### [facility] ([id number]) [address] [place] [address] 84253 KETONES FAWAD Negative Normal NEG [facility] Comment on above: Performed By: #### N UM #### [facility] ([id number]) [address] [place] [address] 37738 LEUKOCYTE ESTERASE FAWAD Trace Abnormal NEG [facility] Comment on above: Performed By: #### N UM #### [facility] ([id number]) [address] [place] [address] 19812 NITRITE FAWAD Negative Normal NEG [facility] Comment on above: Performed By: #### N UM #### [facility] ([id number]) [address] [place] [address] 88669 PH FAWAD 6.5 Normal 5.0-8.5 [facility] Comment on above: Performed By: #### N UM #### [facility] ([id number]) [address] [place] [address] 91693 PROTEIN FAWAD Negative Normal NEG [facility] Comment on above: Performed By: #### N UM #### [facility] ([id number]) [address] [place] [address] 98769 SPECIFIC GRAVITY FAWAD 1.010 Normal 1.003-1.035 [facility] Comment on above: Performed By: #### N UM #### [facility] ([id number]) [address] [place] [address] 36769 UROBILINOGEN FAWAD 0.2 eu/dL Normal <1.[address] [facility] Comment on above: Performed By: #### N UM #### [facility] ([id number]) [address] [place] [address] ABDOMEN AND PELVIS WO CON Ton 02-25-2024 CT ABDOMEN AND PELVIS WO CONT CT [...] Robbins MD on 11/26/2023 5:33 PM Normal [facility] HCG ( test) Ql (U)o n 11-26-2023 Beta HCG ( test) Ql (U) Negative Normal NEG [facility] Comment on above: Performed By: #### 2 106-3 #### [facility] ([id number]) [address] [place] [address], [place] [address] URINE CULTUREon 11-26-2023 Bacteria identified Cx Nom [...] F TRIMETH/SULFAMETHOXA ZOLE S <=1/19 F Susceptible [facility] Comment on above: Performed By: #### 6 30-4 #### [facility] ([id number]) [address] [place] [address], [address] [place] [address] URN MACROSCOPIC NURon 2023 BILIRUBIN FAWAD Negative Normal NEG [facility] Comment on above: Performed By: #### N UM #### [facility] ([id number]) [address] [place] [address] [place] [address] BLOOD/HGB FAWAD Trace Abnormal NEG [facility] Comment on above: Performed By: #### N UM #### [facility] ([id number]) [address] [place] [address] [place] [address] GLUCOSE FAWAD Negative Normal NEG [facility] Comment on above: Performed By: #### N UM #### [facility] ([id number]) [address] [place] [address] [place] [address] KETONES FAWAD Negative Normal NEG [facility] Comment on above: Performed By: #### N UM #### [facility] ([id number]) [address] [place] [address], [place] [address] LEUKOCYTE ESTERASE FAWAD Trace Abnormal NEG [facility] Comment on above: Performed By: #### N UM #### [facility] ([id number]) [address] [place] [address] [place] [address] NITRITE FAWAD Negative Normal NEG [facility] Comment on above: Performed By: #### N UM #### [facility] ([id number]) [address] [place] [address] [place] [address] PH FAWAD 7.0 Normal 5.0-8.5 [facility] Comment on above: Performed By: #### N UM #### [facility] ([id number]) [address] [place] [address] [place] [address] PROTEIN FAWAD Negative Normal NEG [facility] Comment on above: Performed By: #### N UM #### [facility] ([id number]) [address] [place] [address], [place] [address] SPECIFIC GRAVITY FAWAD 1.020 Normal 1.003-1.035 [facility] Comment on above: Performed By: #### N UM #### [facility] ([id number]) [address] [place] [address], [place] [address] UROBILINOGEN FAWAD 0.2 eu/dL Normal <1.1 [facility] Comment on above: Performed By: #### N UM #### [facility] ([id number]) [address] [place] [address], [place] [address] ED Note-Physicianon 09-29-20 ED Note-Physician [id number] #[id number] Normal [facility] Urinalysis - AUTOMATEDon Appearance (U) clear [employer] Other Bilirubin Ql (U) Negative [employer] Other Color (U) light yellow [employer] Other Glucose Ql (U) Negative [employer] Other Hemoglobin Ql (U) Negative [employer] Other Ketones Ql (U) Negative [employer] Other Leukocyte esterase Test strip Ql (U) Negative [employer] Other Nitrite Ql (U) Negative [employer] Other pH (U) 6.0 [pH] [employer] Other Protein Ql (U) Negative [employer] Other Specific gravity (U) [Rel density] >1.030 [employer] Other Urobilinogen (U) [Mass/Vol] 0.2 mg/dL [employer] Other Urinalysis - AUTOMATED [facility] [employer] Other Vaginitis Plus (VG+)on 07-17 Vaginitis Plus (VG+) Negative Negative [facility] [employer] Other Vaginitis Plus (VG+) Low - 0 . [facility] [employer] Other Atopobium Vaginae Low - 0 Normal . [facility] Comment on above: Performed By: #### V AGINITIS+ #### [facility] , BVAB2 Low - 0 Normal . [facility] Comment on above: Performed By: #### V AGINITIS+ #### [facility] , Ashley Albicans, CHULA Negative Normal Negative [facility] Comment on above: Result Comment: This test was developed and its performance characteristics determined by [employer]. It has not been cleared or approved by the Food and Drug Administration. Performed By: #### V AGINITIS+ #### [facility] , Ashley Glabrata, CHULA Negative Normal Negative [facility] Comment on above: Result Comment: This test was developed and its performance characteristics determined by [employer]. It has not been cleared or approved by the Food and Drug Administration. PERFORMED BY: [facility] [address] [place] [address] PATHOLOGIST BOILER WATER TESTER NELL GAUTAM M.D. Performed By: #### V AGINITIS+ #### [facility] , Chlamydia Trachomotis, CHULA Negative Normal Negative [facility] Comment on above: Performed By: #### V AGINITIS+ #### [facility] , Megasphaera Low - 0 Normal . [facility] Comment on above: Result Comment: Calc ulate [...] , Neisseria Gonorrhoeae, CHULA Negative Normal Negative [facility] Comment on above: Result Comment: Perf ormed at: =G - [facility] [address] [id number] [place] Tender: Leticia Longo MD, Phone: [phone] Performed By: #### V AGINITIS+ #### [facility] , Tric Vag CHULA Negative Normal Negative [facility] Comment on above: Performed By: #### V AGINITIS+ #### [facility] , CBC AUTO DIFFon 12-27-2022 BASO # 0.0 103/ul Normal 0.0-0.1 [facility] Comment on above: Performed By: #### R PRQ #### [facility] [address] [place] [address] Dr. Valerio Alexis Basophils/100 WBC (Bld) 0.2 % Normal 0.2-2.0 [facility] Comment on above: Performed By: #### R PRQ #### [facility] [address] [place] [address] Dr. Valerio Alexis EO # 0.1 103/ul Normal 0.0-0.7 [facility] Comment on above: Performed By: #### R PRQ #### [facility] [address] [address] [address] Valerio Alexis Eosinophils/100 WBC (Bld) 0.6 % Critically low 0.9-7.0 [facility] Comment on above: Performed By: #### R PRQ #### [facility] [address] [place] [address] Dr. Valerio Alexis Erythrocyte distribution width (RBC) [Ratio] 14.1 % Normal 11.0-15.0 [facility] Comment on above: Performed By: #### R PRQ #### [facility] [address] [address] [address] Valerio Alexis Hematocrit (Bld) [Volume fraction] 35.7 % Critically low 36.0-48.0 [facility] Comment on above: Performed By: #### R PRQ #### [facility] [address] [place] [address] Dr. Valerio Alexis Hemoglobin (Bld) [Mass/Vol] 11.9 g/dL Critically low 12.0-16.0 [facility] Comment on above: Performed By: #### R PRQ #### [facility] [address] [address] [address] Valerio Alexis IG # 0.02 10e3/ul Normal 0.00-0.03 [facility] Comment on above: Performed By: #### R PRQ #### [facility] [address] [place] [address] Dr. Valerio Alexis IG % 0.2 % Normal 0.0-0.5 [facility] Comment on above: Performed By: #### R PRQ #### [facility] [address] [place] [address] Dr. Valerio Alexis LYMPH # 1.0 103/ul Critically low 1.2-3.8 [facility] Comment on above: Performed By: #### R PRQ #### [facility] [address] [place] [address] Dr. Valerio Alexis Lymphocytes/100 WBC (Bld) 12.4 % Critically low 20.5-60.0 [facility] Comment on above: Performed By: #### R PRQ #### [facility] [address] [place] [address] Dr. Valerio Alexis MANUAL DIFF REQ NO Normal [facility] Comment on above: Performed By: #### R PRQ #### [facility] [address] [place] [address] Dr. Valerio Alexis MCH (RBC) [Entitic mass] 26.7 pg Normal 26.7-34.0 [facility] Comment on above: Performed By: #### R PRQ #### [facility] [address] [address] [address] Valerio Alexis MCHC (RBC) [Mass/Vol] 33.3 g/dL Normal 29.9-35.2 [facility] Comment on above: Performed By: #### R PRQ #### [facility] [address] [place] [address] Dr. Valerio Alexis MCV (RBC) [Entitic vol] 80.2 fL Critically low 81.0-99.0 [facility] Comment on above: Performed By: #### R PRQ #### [facility] [address] [place] [address] Dr. Valerio Alexis MONO # 0.8 103/ul Normal 0.3-0.8 [facility] Comment on above: Performed By: #### R PRQ #### [facility] [address] [place] [address] Dr. Valerio Alexis Monocytes/100 WBC (Bld) 9.3 % Normal 1.7-12.0 [facility] Comment on above: Performed By: #### R PRQ #### [facility] [address] [place] [address] Dr. Valerio Alexis NEUT # 6.3 103/ul Normal 1.4-6.5 [facility] Comment on above: Performed By: #### R PRQ #### [facility] [address] [place] [address] Dr. Valerio Alexis Neutrophils/100 WBC (Bld) 77.3 % Critically high 43.0-75.0 [facility] Comment on above: Performed By: #### R PRQ #### [facility] [address] [place] [address] Dr. Valerio Alexis Platelet mean volume (Bld) [Entitic vol] 10.6 fL Normal 9.5-13.5 [facility] Comment on above: Performed By: #### R PRQ #### [facility] [address] [place] [address] Dr. Valerio Alexis PLT 192 103/ul Normal 150-450 [facility] Comment on above: Performed By: #### R PRQ #### [facility] [address] [address] [address] Valerio Alexis RBC 4.45 106/ul Normal 4.20-5.40 [facility] Comment on above: Performed By: #### R PRQ #### [facility] [address] [place] [address] Dr. Valerio Alexis WBC 8.2 103/ul Normal 4.0-11.0 [facility] Comment on above: Performed By: #### R PRQ #### [facility] [address] [place] [address] Dr. Valerio Alexis GI PANEL (PCR)on 12-27-2022 Adenovirus F 40/41 Not detected Normal NOT DETECTED [facility] Comment on above: Performed By: #### U RCX #### [facility] [address] [place] [address] Dr. Valerio Alexis Astrovirus Not detected Normal NOT DETECTED [facility] Comment on above: Performed By: #### U RCX #### [facility] [address] [place] [address] Dr. Valerio Alexis C. Diff toxin A/B Not detected Normal NOT DETECTED [facility] Comment on above: Performed By: #### U RCX #### [facility] [address] [place] [address] Dr. Valerio Alexis Campylobacter Detected Critically abnormal NOT DETECTED [facility] Comment on above: Performed By: #### U RCX #### [facility] [address] [place] [address] Dr. Valerio Alexis Cryptosporidium Not detected Normal NOT DETECTED [facility] Comment on above: Performed By: #### U RCX #### [facility] [address] [place] [address] Dr. Valerio Alexis Cyclos. Cayetanensis Not detected Normal NOT DETECTED [facility] Comment on above: Performed By: #### U RCX #### [facility] [address] [place] [address] Dr. Valerio Alexis E. Coli O157 Not Applicable Normal Not Applicable [facility] Comment on above: Performed By: #### U RCX #### [facility] [address] [place] [address] Dr. Valerio Alexis E. histolytica Not detected Normal NOT DETECTED [facility] Comment on above: Performed By: #### U RCX #### [facility] [address] [place] [address] Dr. Valerio Alexis EAEC Not detected Normal NOT DETECTED [facility] Comment on above: Performed By: #### U RCX #### [facility] [address] [address] [address] Valerio Alexis EIEC Not detected Normal NOT DETECTED [facility] Comment on above: Performed By: #### U RCX #### [facility] [address] [place] [address] Dr. Valerio Alexis EPEC Not detected Normal NOT DETECTED [facility] Comment on above: Performed By: #### U RCX #### [facility] [address] [place] [address] Dr. Valerio Alexis ETEC Not detected Normal NOT DETECTED [facility] Comment on above: Performed By: #### U RCX #### [facility] [address] [place] [address] Dr. Valerio Alexis G. Lamblia Not detected Normal NOT DETECTED [facility] Comment on above: Performed By: #### U RCX #### [facility] [address] [place] [address] Dr. Valerio HUDSON CONTROLS PASSED Normal [facility] Comment on above: Performed By: #### U RCX #### [facility] [address] [place] [address] Dr. Valerio HARRIS EDE HEADER GI PANEL BACTERIA Normal T [facility] Comment on above: Performed By: #### U RCX #### [facility] [address] [place] [address] Dr. Valerio LÓPEZ ECOLI GI PANEL DIARRHEAGENIC E.COLI / SHIGELLA Normal [facility] Comment on above: Performed By: #### U RCX #### [facility] [address] [place] [address] Dr. Valerio LÓPEZ INFO SEE BELOW Normal [facility] Comment on above: Result Comment: EAEC - Enteroaggregative E. Coli EPEC- Enteropathogenic E. Coli ETEC- Enterotoxigenic E. Coli lt/st STEC- Shigella-like toxin-producing E. Coli stx1/stx2 EIEC- Shigella/Enteroinvasive E. Coli Performed By: #### U RCX #### [facility] [address] [address] [address] Valerio LÓPEZ PARASITES GI PANEL PARASITES Normal [facility] Comment on above: Performed By: #### U RCX #### [facility] [address] [address] [address] Valerio LÓPEZ VIRUS GI PANEL VIRUSES Normal [facility] Comment on above: Performed By: #### U RCX #### [facility] [address] [place] [address] Dr. Valerio Alexis Norovirus GI/GII Not detected Normal NOT DETECTED [facility] Comment on above: Performed By: #### U RCX #### [facility] [address] [address] [address] Valerio Alexis P. Shigelloides Not detected Normal NOT DETECTED [facility] Comment on above: Performed By: #### U RCX #### [facility] [address] [place] [address] Dr. Valerio Alexis Rotavirus A Not detected Normal NOT DETECTED [facility] Comment on above: Performed By: #### U RCX #### [facility] [address] [address] [address] Valerio Alexis Salmonella Not detected Normal NOT DETECTED [facility] Comment on above: Performed By: #### U RCX #### [facility] [address] [place] [address] Dr. Valerio Alexis Sapovirus Not detected Normal NOT DETECTED [facility] Comment on above: Performed By: #### U RCX #### [facility] [address] [address] [address] Valerio Alexis STEC Not detected Normal NOT DETECTED [facility] Comment on above: Performed By: #### U RCX #### [facility] [address] [place] [address] Dr. Valerio Alexis Vibrio Not detected Normal NOT DETECTED [facility] Comment on above: Performed By: #### U RCX #### [facility] [address] [place] [address] Dr. Valerio Alexis Vibrio Cholera Not detected Normal NOT DETECTED [facility] Comment on above: Performed By: #### U RCX #### [facility] [address] [place] [address] Dr. Valerio Alexis Y. Enterocolitica Not detected Normal NOT DETECTED [facility] Comment on above: Performed By: #### U RCX #### [facility] [address] [place] [address] Dr. Valerio Alexis PROF CHEM 8 (BAS METB)on Anion gap [Moles/Vol] 14.7 mmol/L Normal [facility] Comment on above: Performed By: #### R PRQ #### [facility] [address] [place] [address] Dr. Valerio Alexis Calcium [Mass/Vol] 8.8 mg/dL Normal 8.5-10.1 [facility] Comment on above: Performed By: #### R PRQ #### [facility] [address] [place] [address] Dr. Valerio Alexsi Chloride [Moles/Vol] 104 mmol/L Normal 98-107 [facility] Comment on above: Performed By: #### R PRQ #### [facility] [address] [place] [address] Dr. Valerio Alexis CO2 [Moles/Vol] 23.6 mmol/L Normal 21.0-32.0 [facility] Comment on above: Performed By: #### R PRQ #### [facility] [address] [place] [address] Dr. Valerio Alexis Creatinine [Mass/Vol] 0.72 mg/dL Normal 0.55-1.02 [facility] Comment on above: Performed By: #### R PRQ #### [facility] [address] [place] [address] Dr. Valerio Alexis EGFR-AF VENEZUELAN >60 Normal >=60 [facility] Comment on above: Performed By: #### R PRQ #### [facility] [address] [place] [address] Dr. Valerio Alexis EGFR-NON AF VENEZUELAN >60 Normal >=60 [facility] Comment on above: Performed By: #### R PRQ #### [facility] [address] [address] [address] Valerio Alexis Glucose [Mass/Vol] 77 mg/dL Normal 74-106 [facility] Comment on above: Performed By: #### R PRQ #### [facility] [address] [place] [address] Dr. Valerio Alexis Potassium [Moles/Vol] 3.3 mmol/L Critically low 3.5-5.1 [facility] Comment on above: Performed By: #### R PRQ #### [facility] [address] [place] [address] Dr. Valerio Alexis Sodium [Moles/Vol] 139 mmol/L Normal 136-145 [facility] Comment on above: Performed By: #### R PRQ #### [facility] [address] [place] [address] Dr. Valerio Alexis Urea nitrogen [Mass/Vol] 12.0 mg/dL Normal 7.0-18.0 [facility] Comment on above: Performed By: #### R PRQ #### [facility] [address] [place] [address] Dr. Valerio Alexis Urea nitrogen/Creatinine [Mass ratio] 16.7 mg/mg Normal [facility] Comment on above: Performed By: #### R PRQ #### [facility] [address] [place] [address] Dr. Valerio Alexis CBC AUTO DIFFon 11-19-2022 BASO # 0.0 103/ul Normal 0.0-0.1 [facility] Comment on above: Performed By: #### H IV12 #### [facility] [address] [place], [place] [id number] Dr. Valerio Alexis Basophils/100 WBC (Bld) 0.2 % Normal 0.2-2.0 [facility] Comment on above: Performed By: #### H IV12 #### [facility] [address] [place] [address] Dr. Valeiro Alexis EO # 0.1 103/ul Normal 0.0-0.7 [facility] Comment on above: Performed By: #### H IV12 #### [facility] [address] [place] [address] Dr. Valerio Alexis Eosinophils/100 WBC (Bld) 1.7 % Normal 0.9-7.0 [facility] Comment on above: Performed By: #### H IV12 #### [facility] [address] [place] [address] Dr. Valerio Alexis Erythrocyte distribution width (RBC) [Ratio] 13.4 % Normal 11.0-15.0 [facility] Comment on above: Performed By: #### H IV12 #### [facility] [address] [place] [address] Dr. Valerio Alexis Hematocrit (Bld) [Volume fraction] 38.0 % Normal 36.0-48.0 [facility] Comment on above: Performed By: #### H IV12 #### [facility] [address] [place] [address] Dr. Valerio Alexis Hemoglobin (Bld) [Mass/Vol] 12.5 g/dL Normal 12.0-16.0 [facility] Comment on above: Performed By: #### H IV12 #### [facility] [address] [place] [address] Dr. Valerio Alexis IG # 0.02 10e3/ul Normal 0.00-0.03 [facility] Comment on above: Performed By: #### H IV12 #### [facility] [address] [place] [address] Dr. Valerio Alexis IG % 0.3 % Normal 0.0-0.5 [facility] Comment on above: Performed By: #### H IV12 #### [facility] [address] [address] [address] Valerio Alexis LYMPH # 1.7 103/ul Normal 1.2-3.8 [facility] Comment on above: Performed By: #### H IV12 #### [facility] [address] [place] [address] Dr. Valerio Alexis Lymphocytes/100 WBC (Bld) 25.9 % Normal 20.5-60.0 [facility] Comment on above: Performed By: #### H IV12 #### [facility] [address] [place] [address] Dr. Valerio Alexis MANUAL DIFF REQ NO Normal [facility] Comment on above: Performed By: #### H IV12 #### [facility] [address] [place] [address] Dr. Valerio Alexis MCH (RBC) [Entitic mass] 26.3 pg Critically low 26.7-34.0 [facility] Comment on above: Performed By: #### H IV12 #### [facility] [address] [place] [address] Dr. Valerio Alexis MCHC (RBC) [Mass/Vol] 32.9 g/dL Normal 29.9-35.2 [facility] Comment on above: Performed By: #### H IV12 #### [facility] [address] [place] [address] Dr. Valerio Alexis MCV (RBC) [Entitic vol] 80.0 fL Critically low 81.0-99.0 [facility] Comment on above: Performed By: #### H IV12 #### [facility] [address] [place] [address] Dr. Valerio Alexis MONO # 0.6 103/ul Normal 0.3-0.8 [facility] Comment on above: Performed By: #### H IV12 #### [facility] [address] [place] [address] Dr. Valerio Alexis Monocytes/100 WBC (Bld) 9.2 % Normal 1.7-12.0 [facility] Comment on above: Performed By: #### H IV12 #### [facility] [address] [address] [address] Valerio Alexis NEUT # 4.1 103/ul Normal 1.4-6.5 [facility] Comment on above: Performed By: #### H IV12 #### [facility] [address] [place] [address] Dr. Valerio Alexis Neutrophils/100 WBC (Bld) 62.7 % Normal 43.0-75.0 [facility] Comment on above: Performed By: #### H IV12 #### [facility] [address] [place] [address] Dr. Valerio Alexis Platelet mean volume (Bld) [Entitic vol] 10.4 fL Normal 9.5-13.5 [facility] Comment on above: Performed By: #### H IV12 #### [facility] [address] [place] [address] Dr. Valerio Alexis PLT 254 103/ul Normal 150-450 [facility] Comment on above: Performed By: #### H IV12 #### [facility] [address] [place] [address] Dr. Valerio Alexis RBC 4.75 106/ul Normal 4.20-5.40 [facility] Comment on above: Performed By: #### H IV12 #### [facility] [address] [place] [address] Dr. Valerio Alexis WBC 6.5 103/ul Normal 4.0-11.0 [facility] Comment on above: Performed By: #### H IV12 #### [facility] [address] [place] [address] ABD/PELVIS WO CONon [...] 3 Bilirubin Ql (U) Negative Normal NEGATIVE [facility] Comment on above: Performed By: #### H H #### [facility] [address] [place] [address] Dr. Valerio Alexis Clarity (U) CLEAR Normal CLEAR [facility] Comment on above: Performed By: #### H H #### [facility] [address] [place] [address] Dr. Valerio Alexis Color (U) LT. YELLOW Normal YELLOW [facility] Comment on above: Performed By: #### H H #### [facility] [address] [place] [address] Dr. Valerio DAVISON A micrscopic examination will be performed if indicated. Normal [facility] Comment on above: Performed By: #### H H #### [facility] [address] [place] [address] Dr. Valerio Alexis Glucose Ql (U) Negative Normal NEGATIVE [facility] Comment on above: Performed By: #### H H #### [facility] [address] [address] [address] Valerio Alexis Hemoglobin Ql (U) Negative Normal NEGATIVE [facility] Comment on above: Performed By: #### H H #### [facility] [address] [place] [address] Dr. Valerio Alexis Ketones Ql (U) Negative Normal NEGATIVE [facility] Comment on above: Performed By: #### H H #### [facility] [address] [place] [address] Dr. Valerio Alexis LEUKOCYTES Negative Normal NEGATIVE [facility] Comment on above: Performed By: #### H H #### [facility] [address] [place] [address] Dr. Valerio Alexis Nitrite Ql (U) Negative Normal NEGATIVE [facility] Comment on above: Performed By: #### H H #### [facility] [address] [place] [address] Dr. Valerio Alexis pH (U) 6.0 [pH] Normal 5-9 [facility] Comment on above: Performed By: #### H H #### [facility] [address] [place] [address] Dr. Valerio Alexis SPEC GRAVITY 1.010 Normal 1.005-<=1.025 [facility] Comment on above: Performed By: #### H H #### [facility] [address] [place] [address] Dr. Valerio Alexis UA PROTEIN Negative Normal NEGATIVE/ TRACE [facility] Comment on above: Performed By: #### H H #### [facility] [address] [place] [address] Dr. Valerio Alexis UR MICRO IND NOT INDICATED Normal [facility] Comment on above: Performed By: #### H H #### [facility] [address] [place] [address] Dr. Valerio Alexis Urobilinogen Qn (U) 0.2 {Nicolas'U}/dL Normal 0.2 - 1. 0 [facility] Comment on above: Performed By: #### H H #### [facility] [address] [place] [address] Dr. Valerio Alexis PROF CHEM 8 (BAS METB)on Anion gap [Moles/Vol] 12.1 mmol/L Normal [facility] Comment on above: Performed By: #### H H #### [facility] [address] [place] [address] Dr. Valerio Alexis Calcium [Mass/Vol] 9.2 mg/dL Normal 8.5-10.1 [facility] Comment on above: Performed By: #### H H #### [facility] [address] [address] [address] Valerio Alexis Chloride [Moles/Vol] 104 mmol/L Normal 98-107 [facility] Comment on above: Performed By: #### H H #### [facility] [address] [address] [address] Valerio Alexis CO2 [Moles/Vol] 27.0 mmol/L Normal 21.0-32.0 [facility] Comment on above: Performed By: #### H H #### [facility] [address] [address] [address] Valerio Alexis Creatinine [Mass/Vol] 0.75 mg/dL Normal 0.55-1.02 [facility] Comment on above: Performed By: #### H H #### [facility] [address] [address] [address] Valerio Alexis EGFR-AF VENEZUELAN >60 Normal >=60 [facility] Comment on above: Performed By: #### H H #### [facility] [address] [address] [address] Valerio Alexis EGFR-NON AF VENEZUELAN >60 Normal >=60 [facility] Comment on above: Performed By: #### H H #### [facility] [address] [address] [address] Valerio Alexis Glucose [Mass/Vol] 83 mg/dL Normal 74-106 [facility] Comment on above: Performed By: #### H H #### [facility] [address] [address] [address] Valerio Alexis Potassium [Moles/Vol] 4.1 mmol/L Normal 3.5-5.1 [facility] Comment on above: Performed By: #### H H #### [facility] [address] [place] [address] Dr. Valerio Alexis Sodium [Moles/Vol] 139 mmol/L Normal 136-145 [facility] Comment on above: Performed By: #### H H #### [facility] [address] [address] [address] Valerio Alexis Urea nitrogen [Mass/Vol] 16.0 mg/dL Normal 7.0-18.0 [facility] Comment on above: Performed By: #### H H #### [facility] [address] [place] [address] Dr. Valerio Alexis Urea nitrogen/Creatinine [Mass ratio] 21.3 mg/mg Normal [facility] Comment on above: Performed By: #### H H #### [facility] [address] [place] [address] Dr. Valerio Alexis CHLAMYDIA/GONOCOCCUS CHULA ( AB/URINE/PAPon 10-27-2022 Chlamydia trachomatis, CHULA Negative Normal Negative [facility] Comment on above: Performed By: #### N BOX #### [facility] [address] [place] [address] Dr. Valerio Alexis Neisseria gonorrhoeae, CHULA Negative Normal Negative [facility] Comment on above: Performed By: #### N BOX #### [facility] [address] [place] [address] Dr. Valerio Alexis VAGINITIS/VAGINOSIS DNA PROB Dane 10-26-2022 Ashley species Negative Normal Negative [facility] Comment on above: Performed By: #### R PRQ #### [facility] [address] [place] [address] Dr. Valerio Alexis Gardnerella vaginalis Positive Abnormal Negative [facility] Comment on above: Performed By: #### R PRQ #### [facility] [address] [place] [address] Dr. Valerio Alexis Trichomonas vaginalis Negative Normal Negative [facility] Comment on above: Performed By: #### R PRQ #### [facility] [address] [place] [address] Dr. Valerio Alexis MICRO OTHER TESTSOrdered By: Cesar Riggs on 09-27-2022 S. pyogenes Ag IA.rapid Ql (Throat) Negative (09/27/22 11:23 PM) Normal Negative [facility] Sero CBC AUTO DIFFon 08-25-2022 BASO # 0.0 103/ul Normal 0.0-0.1 [facility] Comment on above: Performed By: #### R PRQ #### [facility] [address] [place] [address] Dr. Valerio Alexis Basophils/100 WBC (Bld) 0.3 % Normal 0.2-2.0 [facility] Comment on above: Performed By: #### R PRQ #### [facility] [address] [place] [address] Dr. Valerio Alexis EO # 0.1 103/ul Normal 0.0-0.7 [facility] Comment on above: Performed By: #### R PRQ #### [facility] [address] [place] [address] Dr. Valerio Alexis Eosinophils/100 WBC (Bld) 0.7 % Critically low 0.9-7.0 [facility] Comment on above: Performed By: #### R PRQ #### [facility] [address] [place] [address] Dr. Valerio Alexis Erythrocyte distribution width (RBC) [Ratio] 13.6 % Normal 11.0-15.0 [facility] Comment on above: Performed By: #### R PRQ #### [facility] [address] [place] [address] Dr. Valerio Alexis Hematocrit (Bld) [Volume fraction] 28.2 % Critically low 36.0-48.0 [facility] Comment on above: Performed By: #### R PRQ #### [facility] [address] [place] [address] Dr. Valerio Alexis Hemoglobin (Bld) [Mass/Vol] 9.6 g/dL Critically low 12.0-16.0 [facility] Comment on above: Performed By: #### R PRQ #### [facility] [address] [place] [address] Dr. Valerio Alexis IG # 0.10 10e3/ul Critically high 0.00-0.03 [facility] Comment on above: Performed By: #### R PRQ #### [facility] [address] [place] [address] Dr. Valerio Alexis IG % 0.7 % Critically high 0.0-0.5 [facility] Comment on above: Performed By: #### R PRQ #### [facility] Laboratory [address] [place] [address] Dr. Valerio Alexis LYMPH # 2.2 103/ul Normal 1.2-3.8 [facility] Comment on above: Performed By: #### R PRQ #### [facility] [address] [place] [address] Dr. Valerio Alexis Lymphocytes/100 WBC (Bld) 16.5 % Critically low 20.5-60.0 [facility] Comment on above: Performed By: #### R PRQ #### [facility] [address] [place] [address] Dr. Valerio Alexis MANUAL DIFF REQ NO Normal [facility] Comment on above: Performed By: #### R PRQ #### [facility] [address] [place] [address] Dr. Valerio Alexis MCH (RBC) [Entitic mass] 27.7 pg Normal 26.7-34.0 [facility] Comment on above: Performed By: #### R PRQ #### [facility] [address] [place] [address] Dr. Valerio Alexis MCHC (RBC) [Mass/Vol] 34.0 g/dL Normal 29.9-35.2 [facility] Comment on above: Performed By: #### R PRQ #### [facility] [address] [place] [address] Dr. Valerio Alexis MCV (RBC) [Entitic vol] 81.3 fL Normal 81.0-99.0 [facility] Comment on above: Performed By: #### R PRQ #### [facility] [address] [place] [address] Dr. Valerio Alexis MONO # 1.2 103/ul Critically high 0.3-0.8 [facility] Comment on above: Performed By: #### R PRQ #### [facility] [address] [place] [address] Dr. Valerio Alexis Monocytes/100 WBC (Bld) 8.7 % Normal 1.7-12.0 [facility] Comment on above: Performed By: #### R PRQ #### [facility] [address] [place] [address] Dr. Valerio Alexis NEUT # 9.9 103/ul Critically high 1.4-6.5 [facility] Comment on above: Performed By: #### R PRQ #### [facility] [address] [place] [address] Dr. Valerio Alexis Neutrophils/100 WBC (Bld) 73.1 % Normal 43.0-75.0 [facility] Comment on above: Performed By: #### R PRQ #### [facility] [address] [place] [address] Dr. Valerio Alexis Platelet mean volume (Bld) [Entitic vol] 9.9 fL Normal 9.5-13.5 [facility] Comment on above: Performed By: #### R PRQ #### [facility] [address] [place] [address] Dr. Valerio Alexis PLT 200 103/ul Normal 150-450 [facility] Comment on above: Performed By: #### R PRQ #### [facility] [address] [place] [address] Dr. Valerio Alexis RBC 3.47 106/ul Critically low 4.20-5.40 [facility] Comment on above: Performed By: #### R PRQ #### [facility] [address] [place] [address] Dr. Valerio Alexis WBC 13.5 103/ul Critically high 4.0-11.0 [facility] Comment on above: Performed By: #### R PRQ #### [facility] [address] [place] [address] Dr. Valerio Alexis CBC AUTO DIFFon 08-24-2022 BASO # 0.0 103/ul Normal 0.0-0.1 [facility] Comment on above: Performed By: #### H H #### [facility] [address] [place] [address] Dr. Valerio Alexis Basophils/100 WBC (Bld) 0.3 % Normal 0.2-2.0 [facility] Comment on above: Performed By: #### H H #### [facility] [address] [place] [address] Dr. Valerio Alexis EO # 0.1 103/ul Normal 0.0-0.7 [facility] Comment on above: Performed By: #### H H #### [facility] [address] [place] [address] Dr. Valerio Alexis Eosinophils/100 WBC (Bld) 0.5 % Critically low 0.9-7.0 [facility] Comment on above: Performed By: #### H H #### [facility] [address] [place] [address] Dr. Valerio Alexis Erythrocyte distribution width (RBC) [Ratio] 13.2 % Normal 11.0-15.0 [facility] Comment on above: Performed By: #### H H #### [facility] [address] [place] [address] Dr. Valerio Alexis Hematocrit (Bld) [Volume fraction] 32.4 % Critically low 36.0-48.0 [facility] Comment on above: Performed By: #### H H #### [facility] [address] [place] [address] Dr. Valerio Alexis Hemoglobin (Bld) [Mass/Vol] 10.9 g/dL Critically low 12.0-16.0 [facility] Comment on above: Performed By: #### H H #### [facility] [address] [place] [address] Dr. Valerio Alexis IG # 0.07 10e3/ul Critically high 0.00-0.03 [facility] Comment on above: Performed By: #### H H #### [facility] [address] [place] [address] Dr. Valerio Alexis IG % 0.6 % Critically high 0.0-0.5 [facility] Comment on above: Performed By: #### H H #### [facility] [address] [place] [address] Dr. Valerio Alexis LYMPH # 2.0 103/ul Normal 1.2-3.8 [facility] Comment on above: Performed By: #### H H #### [facility] [address] [place] [address] Dr. Valerio Alexis Lymphocytes/100 WBC (Bld) 18.4 % Critically low 20.5-60.0 [facility] Comment on above: Performed By: #### H H #### [facility] [address] [place] [address] Dr. Valerio Alexis MANUAL DIFF REQ NO Normal [facility] Comment on above: Performed By: #### H H #### [facility] [address] [place] [address] Dr. Valerio Alexis MCH (RBC) [Entitic mass] 27.1 pg Normal 26.7-34.0 [facility] Comment on above: Performed By: #### H H #### [facility] [address] [place] [address] Dr. Valerio Alexis MCHC (RBC) [Mass/Vol] 33.6 g/dL Normal 29.9-35.2 [facility] Comment on above: Performed By: #### H H #### [facility] [address] [place] [address] Dr. Valerio Alexis MCV (RBC) [Entitic vol] 80.6 fL Critically low 81.0-99.0 [facility] Comment on above: Performed By: #### H H #### [facility] [address] [place] [address] Dr. Valerio Alexis MONO # 0.9 103/ul Critically high 0.3-0.8 [facility] Comment on above: Performed By: #### H H #### [facility] [address] [place] [address] Dr. Valerio Alexis Monocytes/100 WBC (Bld) 8.5 % Normal 1.7-12.0 [facility] Comment on above: Performed By: #### H H #### [facility] [address] [place] [address] Dr. Valerio Alexis NEUT # 7.7 103/ul Critically high 1.4-6.5 [facility] Comment on above: Performed By: #### H H #### [facility] [address] [place] [address] Dr. Valerio Alexis Neutrophils/100 WBC (Bld) 71.7 % Normal 43.0-75.0 [facility] Comment on above: Performed By: #### H H #### [facility] [address] [place] [address] Dr. Valerio Alexis Platelet mean volume (Bld) [Entitic vol] 9.8 fL Normal 9.5-13.5 [facility] Comment on above: Performed By: #### H H #### [facility] [address] [place] [address] Dr. Valerio Alexis PLT 273 103/ul Normal 150-450 [facility] Comment on above: Performed By: #### H H #### [facility] [address] [place] [address] Dr. Valerio Alexis RBC 4.02 106/ul Critically low 4.20-5.40 [facility] Comment on above: Performed By: #### H H #### [facility] [address] [place] [address] Dr. Valerio Alexis WBC 10.8 103/ul Normal 4.0-11.0 [facility] Comment on above: Performed By: #### H H #### [facility] [address] [place] [address] Dr. Valerio Alexis Covid-19 PCR ([facility])on 08-03 SARS-CoV-2 (COVID-19) RNA CHULA+probe Ql [...] for this test is supported by the Guest Request Runner of Health and Human Service's declaration that [...] H #### [facility] [address] [place] [address] Dr. Valerio Alexis DRUG SCREEN RAPID (URINE)on 08-24-2022 AMP Negative Normal NEGATIVE [facility] Comment on above: Performed By: #### H H #### [facility] [address] [place] [address] Dr. Valerio Alexis BAR Negative Normal NEGATIVE [facility] Comment on above: Performed By: #### H H #### [facility] [address] [place] [address] Dr. Valerio Alexis BUP Negative Normal NEGATIVE [facility] Comment on above: Performed By: #### H H #### [facility] [address] [place] [address] Dr. Valerio Alexis BZO Negative Normal NEGATIVE [facility] Comment on above: Performed By: #### H H #### [facility] [address] [place] [address] Dr. Valerio Alexis WENDY Negative Normal NEGATIVE [facility] Comment on above: Performed By: #### H H #### [facility] [address] [place] [address] Dr. Valerio Alexis CUT-OFFS SEE BELOW Normal [facility] Comment on above: Result Comment: AMP [...] H #### [facility] [address] [place] [address] Dr. Valerio Alexis DRUG CUT HEADER DRUG CLASS TEST SYSTEM CUT-OFF CONCENTRATIONS ARE FOLLOWS: Normal [facility] Comment on above: Performed By: #### H H #### [facility] [address] [place] [address] Dr. Valerio Alexis mAMP Negative Normal NEGATIVE [facility] Comment on above: Performed By: #### H H #### [facility] [address] [place] [address] Dr. Valerio Alexis MTD Negative Normal NEGATIVE [facility] Comment on above: Performed By: #### H H #### [facility] [address] [place] [address] Dr. Valerio Alexis OPI Negative Normal NEGATIVE [facility] Comment on above: Performed By: #### H H #### [facility] [address] [place] [address] Dr. Valerio Alexis OXY Negative Normal NEGATIVE [facility] Comment on above: Performed By: #### H H #### [facility] [address] [place] [address] Dr. Valerio Alexis PCP Negative Normal NEGATIVE [facility] Comment on above: Performed By: #### H H #### [facility] [address] [place] [address] Dr. Valerio Alexis PPX Negative Normal NEGATIVE [facility] Comment on above: Performed By: #### H H #### [facility] [address] [place] [address] Dr. Valerio Alexis TCA Negative Normal NEGATIVE [facility] Comment on above: Performed By: #### H H #### [facility] [address] [place] [address] Dr. Valerio Alexis THC Negative Normal NEGATIVE [facility] Comment on above: Performed By: #### H H #### [facility] [address] [place], [place] [address] Dr. Valerio Alexis TYPE AND SCREENon 08-24-2022 TYPE AND SCREEN Negative Normal [facility] Comment on above: Performed By: #### T NS #### [facility] [address] [place], [place] [address] Dr. Valerio Alexis US PREG BIOPHY W NON STRESSo n 08-22-2022 US PREG BIOPHY W NON STRESS EXAMINATION: US PREG BIOPHY W NON STRESS HISTORY: [id number] baby COMPARISON: 08/16/2022 TECHNIQUE: Ultrasound biophysical profile was performed in the radiology department. FINDINGS: BREATHING MOVEMENTS: 2.0 GROSS BODY MOVEMENTS: 2.0 TONE: 2.0 QUALITATIVE AMNIOTIC FLUID VOLUME: 2.0 PRESENTATION: Cephalic HEART RATE: 137.8 bpm H.B./min AMNIOTIC FLUID VOLUME: 10.3 cm cm GESTATIONAL AGE: 38 weeks 5 days CONCLUSION: Total biophysical profile score: 8.0 Electronically authenticated by: LEE CLAY Date: 2022-08-22 13:46 Normal [facility] US PREG UMBILICAL ARTERYon 1 10-22-2021 US PREG UMBILICAL ARTERY EXAMINATION: US PREG UMBILICAL ARTERY HISTORY: [id number] baby COMPARISON: No relevant comparison available. TECHNIQUE: [...] by: LEE CLAY Date: 2022-08-22 13:48 Normal [facility] US PREG BIOPHY W NON STRESSo n 08-17-2022 US PREG BIOPHY W NON STRESS EXAMINATION: US PREG BIOPHY W NON STRESS HISTORY: [id number] baby COMPARISON: Ultrasound biophysical 08/15/2022 TECHNIQUE: Ultrasound biophysical profile was performed. FINDINGS: IMPRESSION: BREATHING MOVEMENTS: 2.0 GROSS BODY MOVEMENTS: 2.0 TONE: 2.0 QUALITATIVE AMNIOTIC FLUID VOLUME: 2.0 PRESENTATION: Cephalic HEART RATE: 142.9 bpm bpm. AMNIOTIC FLUID VOLUME: 12.7 cm GESTATIONAL AGE: 37 weeks 6 days CONCLUSION: Total biophysical profile score 8.0. Electronically authenticated by: TEAGAN ENRIQUE Date: 2022-08-17 06:47 Normal [facility] US PREG BIOPHY W NON STRESSo [...] by: LEE CLAY Date: 2022-08-15 16:37 Normal [facility] US PREG UMBILICAL ARTERYon 1 10-15-2021 US PREG UMBILICAL ARTERY EXAM: US PREG UMBILICAL ARTERY HISTORY: [id number]-[id number]-[id number] baby EXAMINATION: US PREG UMBILICAL ARTERY HISTORY: [id number] baby COMPARISON: No relevant comparison available. TECHNIQUE: [...] by: LEE CLAY Date: 2022-08-15 16:55 Normal [facility] US PREG BIOPHY W NON STRESSo [...] by: LEE CLAY Date: 2022-08-08 16:59 Normal [facility] US PREG UMBILICAL ARTERYon 1 10-08-2021 US PREG UMBILICAL ARTERY EXAM: US PREG UMBILICAL ARTERY HISTORY: [id number] baby COMPARISON: 08/01/2022 TECHNIQUE: Grayscale, color and [...] Urea nitrogen [Mass/Vol] 11.0 mg/dL Normal 7.0-18.0 [facility] Comment on above: Performed By: #### N BOX #### [facility] [address] [place] [address] [address] Valerio Alexis CBC AUTO DIFFon 08-05-2022 BASO # 0.0 103/ul Normal 0.0-0.1 [facility] Comment on above: Performed By: #### N BOX #### [facility] [address] [place] [address] [address] Valerio Alexis Basophils/100 WBC (Bld) 0.3 % Normal 0.2-2.0 [facility] Comment on above: Performed By: #### N BOX #### [facility] [address] [place] [address] [address] Valerio Alexis EO # 0.0 103/ul Normal 0.0-0.7 [facility] Comment on above: Performed By: #### N BOX #### [facility] [address] [place] [address] Dr. Valerio Alexis Eosinophils/100 WBC (Bld) 0.3 % Critically low 0.9-7.0 [facility] Comment on above: Performed By: #### N BOX #### [facility] [address] [place] [address] Dr. Valerio Alexis Erythrocyte distribution width (RBC) [Ratio] 12.9 % Normal 11.0-15.0 [facility] Comment on above: Performed By: #### N BOX #### [facility] [address] [place] [address] Dr. Valerio Alexis Hematocrit (Bld) [Volume fraction] 33.3 % Critically low 36.0-48.0 [facility] Comment on above: Performed By: #### N BOX #### [facility] [address] [place] [address] Dr. Valerio Alexis Hemoglobin (Bld) [Mass/Vol] 11.0 g/dL Critically low 12.0-16.0 [facility] Comment on above: Performed By: #### N BOX #### [facility] [address] [place] [address] Dr. Valerio Alexis IG # 0.14 10e3/ul Critically high 0.00-0.03 [facility] Comment on above: Performed By: #### N BOX #### [facility] [address] [place] [address] Dr. Valerio Alexis IG % 0.9 % Critically high 0.0-0.5 [facility] Comment on above: Performed By: #### N BOX #### [facility] [address] [place] [address] Dr. Valerio Alexis LYMPH # 1.4 103/ul Normal 1.2-3.8 [facility] Comment on above: Performed By: #### N BOX #### [facility] [address] [place] [address] [address] Valerio Alexis Lymphocytes/100 WBC (Bld) 8.8 % Critically low 20.5-60.0 [facility] Comment on above: Performed By: #### N BOX #### [facility] [address] [place] [address] [address] Valerio Alexis MANUAL DIFF REQ NO Normal [facility] Comment on above: Performed By: #### N BOX #### [facility] [address] [place] [address] [address] Valerio Alexis MCH (RBC) [Entitic mass] 27.8 pg Normal 26.7-34.0 [facility] Comment on above: Performed By: #### N BOX #### [facility] [address] [place] [address] Dr. Valerio Alexis MCHC (RBC) [Mass/Vol] 33.0 g/dL Normal 29.9-35.2 [facility] Comment on above: Performed By: #### N BOX #### [facility] [address] [place] [address] Dr. Valerio Alexis MCV (RBC) [Entitic vol] 84.3 fL Normal 81.0-99.0 [facility] Comment on above: Performed By: #### N BOX #### [facility] [address] [place] [address] Dr. Valerio Alexis MONO # 1.1 103/ul Critically high 0.3-0.8 [facility] Comment on above: Performed By: #### N BOX #### [facility] [address] [place] [address] Dr. Valerio Alexis Monocytes/100 WBC (Bld) 7.0 % Normal 1.7-12.0 [facility] Comment on above: Performed By: #### N BOX #### [facility] [address] [place] [address] Dr. Valerio Alexis NEUT # 13.1 103/ul Critically high 1.4-6.5 [facility] Comment on above: Performed By: #### N BOX #### [facility] [address] [place] [address] Dr. Valerio Alexis Neutrophils/100 WBC (Bld) 82.7 % Critically high 43.0-75.0 [facility] Comment on above: Performed By: #### N BOX #### [facility] [address] [place] [address] [address] Valerio Alexis Platelet mean volume (Bld) [Entitic vol] 10.8 fL Normal 9.5-13.5 [facility] Comment on above: Performed By: #### N BOX #### [facility] [address] [place] [address] [address] Valerio Alexis PLT 202 103/ul Normal 150-450 [facility] Comment on above: Performed By: #### N BOX #### [facility] [address] [place] [address] [address] Valerio Alexis RBC 3.95 106/ul Critically low 4.20-5.40 [facility] Comment on above: Performed By: #### N BOX #### [facility] [address] [place] [address] [address] Valerio Alexis WBC 15.9 103/ul Critically high 4.0-11.0 [facility] Comment on above: Performed By: #### N BOX #### [facility] [address] [place] [address] [address] Valerio Alexis CREATININEon 08-05-2022 Creatinine [Mass/Vol] 0.64 mg/dL Normal 0.55-1.02 [facility] Comment on above: Performed By: #### N BOX #### [facility] [address] [place] [address] [address] Valerio Alexis EGFR-AF VENEZUELAN >60 Normal >=60 [facility] Comment on above: Performed By: #### N BOX #### [facility] [address] [place] [address] [address] Valerio Alexis EGFR-NON AF VENEZUELAN >60 Normal >=60 [facility] Comment on above: Performed By: #### N BOX #### [facility] [address] [place] [address] [address] Valerio Alexis CULTURE URINEon 08-05-2022 CULTURE URINE Culture Observations: LIGHT GROWTH OF MIXED GENITAL RICK. NO POTENTIAL PATHOGENS SEEN. Normal [facility] Comment on above: Performed By: #### N BOX #### [facility] [address] [place] [address] Dr. Valerio Alexis UA (CLEAN/CATCH) LIEUTENANT BALLISTICS/MICRO I F IND.on 08-05-2022 Bilirubin Ql (U) Negative Normal NEGATIVE [facility] Comment on above: Performed By: #### N BOX #### [facility] [address] [place] [address] Dr. Valerio Alexis Clarity (U) CLEAR Normal CLEAR [facility] Comment on above: Performed By: #### N BOX #### [facility] [address] [place] [address] Dr. Valerio Alexis Color (U) LT. YELLOW Normal YELLOW [facility] Comment on above: Performed By: #### N BOX #### [facility] [address] [place] [address] Dr. Valerio Alexis Glucose Ql (U) Negative Normal NEGATIVE [facility] Comment on above: Performed By: #### N BOX #### [facility] [address] [place] [address] Dr. Valerio Alexis Hemoglobin Ql (U) LARGE Abnormal NEGATIVE [facility] Comment on above: Performed By: #### N BOX #### [facility] [address] [place] [address] Dr. Valerio Alexis Ketones Ql (U) Negative Normal NEGATIVE [facility] Comment on above: Performed By: #### N BOX #### [facility] [address] [place] [address] Dr. Valerio Alexis LEUKOCYTES SMALL Abnormal NEGATIVE [facility] Comment on above: Performed By: #### N BOX #### [facility] [address] [place] [address] Dr. Valerio Alexis Nitrite Ql (U) Positive Abnormal NEGATIVE [facility] Comment on above: Performed By: #### N BOX #### [facility] [address] [place] [address] Dr. Valerio Alexis pH (U) 6.5 [pH] Normal 5-9 [facility] Comment on above: Performed By: #### N BOX #### [facility] [address] [place] [address] Dr. Valerio Alexis SPEC GRAVITY 1.020 Normal 1.005-<=1.025 [facility] Comment on above: Performed By: #### N BOX #### [facility] [address] [place] [address] Dr. Valerio Alexis UA PROTEIN 30 mg/dl Abnormal NEGATIVE/ TRACE [facility] Comment on above: Performed By: #### N BOX #### [facility] [address] [place] [address] Dr. Valerio Alexis UR MICRO IND INDICATED Normal [facility] Comment on above: Performed By: #### N BOX #### [facility] [address] [place] [address] Dr. Valerio Alexis Urobilinogen Qn (U) 0.2 {Nicolas'U}/dL Normal 0.2 - 1. 0 [facility] Comment on above: Performed By: #### N BOX #### [facility] [address] [place] [address] Dr. Valerio Alexis URINE MICROSCOPIC ONLYon BACTERIA TRACE Abnormal NONE SEEN [facility] Comment on above: Performed By: #### N BOX #### [facility] [address] [place] [address] Dr. Valerio Alexis Bacteria identified Cx Nom (U) INDICATED Normal [facility] Comment on above: Performed By: #### N BOX #### [facility] [address] [place] [address] Dr. Valerio Alexis CAST NONE SEEN Normal NONE SEEN [facility] Comment on above: Performed By: #### N BOX #### [facility] [address] [place] [address] Dr. Valerio Alexis Crystals LM Nom (Urine sed) NONE SEEN Normal NONE SEEN [facility] Comment on above: Performed By: #### N BOX #### [facility] [address] [place] [address] Dr. Valerio Alexis Epithelial cells LM Ql (Urine sed) RARE Normal NONE SEEN /RARE [facility] Comment on above: Performed By: #### N BOX #### [facility] [address] [address] [address] Valerio Alexis MUCOUS NONE SEEN Normal NONE SEEN [facility] Comment on above: Performed By: #### N BOX #### [facility] [address] [address] [address] Valerio Alexis RBC NONE SEEN Abnormal 0-2 [facility] Comment on above: Performed By: #### N BOX #### [facility] [address] [address] [address] Valerio Alexis WBC 5-10 Abnormal NONE SEEN [facility] Comment on above: Performed By: #### N BOX #### [facility] [address] [place] [address] Dr. Valerio Alexis GROUP B STREP CULTUREon 11 S. agalactiae Ag Ql (Unsp spec) Culture Observations: NEGATIVE FOR GROUP B STREPTOCOCCUS. Normal [facility] Comment on above: Performed By: #### G BSCX #### [facility] [address] [address] [address] Valerio Alexis US PREG BIOPHY W [...] by: TEAGAN ENRIQUE Date: 2022-08-02 05:48 Normal [facility] US PREG UMBILICAL ARTERYon 1 10-02-2021 US PREG UMBILICAL ARTERY EXAMINATION: US PREG UMBILICAL ARTERY HISTORY: [id number] baby COMPARISON: Ultrasound umbilical artery 07/28/2022 TECHNIQUE: [...] TEAGAN ENRIQUE Date: 2022-08-02 05:54 Normal [facility] US PREG BIOPHYSICAL NO NSTon 07-28-2022 [...] by: TEAGAN ENRIQUE Date: 2022-07-28 16:40 Normal [facility] US PREG GROWTHon 07-28-2022 US PREG [...] 3. Dr. Harding was notified by the sql database developer at time of imaging. Electronically authenticated by: TEAGAN ENRIQUE Date: 2022-07-28 16:48 Normal [facility] US PREG UMBILICAL ARTERYon 1 US [...] by: TEAGAN ENRIQUE Date: 2022-07-28 13:25 Normal [facility] US PREG BIOPHY W NON STRESSo [...] by: TEAGAN ENRIQUE Date: 2022-07-26 16:06 Normal [facility] US PREG BIOPHY W NON STRESS [...] by: LEE CLAY Date: 2022-07-26 07:14 Normal [facility] US PREG BIOPHY W NON STRESSo [...] by: TEAGAN ENRIQUE Date: 2022-07-19 20:21 Normal [facility] US PREG GROWTHon 07-13-2022 US PREG [...] Dr. Harding notified of low weight by sql database developer at time of imaging. Electronically authenticated by: TEAGAN ENRIQUE Date: 2022-07-12 22:01 Normal [facility] GLUCOSE - 1HRon 05-31-2022 Glucose [Mass/Vol] 110 mg/dL Critically high 74-106 T [facility] Comment on above: Performed By: #### R PRQ #### [facility] [address] [place] [address] Dr. Valerio Alexis HEMOGRAM AND PLATELon 2021 Hematocrit (Bld) [Volume fraction] 31.6 % Critically low 36.0-48.0 [facility] Comment on above: Performed By: #### H H #### [facility] [address] [address] [address] Valerio Alexis Hemoglobin (Bld) [Mass/Vol] 10.7 g/dL Critically low 12.0-16.0 [facility] Comment on above: Performed By: #### H H #### [facility] [address] [place] [address] Dr. Valerio Alexis MCH (RBC) [Entitic mass] 29.7 pg Normal 26.7-34.0 [facility] Comment on above: Performed By: #### H H #### [facility] [address] [place] [address] Dr. Valerio Alexis MCHC (RBC) [Mass/Vol] 33.9 g/dL Normal 29.9-35.2 [facility] Comment on above: Performed By: #### H H #### [facility] [address] [place] [address] Dr. Valerio Alexis MCV (RBC) [Entitic vol] 87.8 fL Normal 81.0-99.0 [facility] Comment on above: Performed By: #### H H #### [facility] [address] [place] [address] Dr. Valerio Alexis PLT 179 103/ul Normal 150-450 [facility] Comment on above: Performed By: #### H H #### [facility] [address] [place] [address] Dr. Valerio Alexis RBC 3.60 106/ul Critically low 4.20-5.40 [facility] Comment on above: Performed By: #### H H #### [facility] [address] [place] [address] Dr. Valerio Alexis WBC 8.9 103/ul Normal 4.0-11.0 [facility] Comment on above: Performed By: #### H H #### [facility] [address] [place] [address] Dr. Valerio Alexis CHLAMYDIA/GONOCOCCUS CHULA (SW AB/URINE/PAPon 05-21-2022 Chlamydia trachomatis, CHULA Negative Normal Negative [facility] Comment on above: Performed By: #### R PRQ #### [facility] [address] [place] [address] Dr. Valerio Alexis Neisseria gonorrhoeae, CHULA Negative Normal Negative [facility] Comment on above: Performed By: #### R PRQ #### [facility] [address] [place] [address] Dr. Valerio Alexis VAGINITIS/VAGINOSIS DNA PROB Dane 05-21-2022 Ashley species Negative Normal Negative [facility] Comment on above: Performed By: #### H IV12 #### [facility] [address] [place] [address] Dr. Valerio Alexis Gardnerella vaginalis Positive Abnormal Negative [facility] Comment on above: Performed By: #### H IV12 #### [facility] [address] [place] [address] Dr. Valerio Alexis Trichomonas vaginalis Negative Normal Negative [facility] Comment on above: Performed By: #### H IV12 #### [facility] [address] [place] [address] Dr. Valerio Alexis HEPATITIS PANEL, ACUTEon HBsAg Screen Negative Normal Negative [facility] Comment on above: Performed By: #### R PRQ #### [facility] [address] [place] [address] Dr. Valerio Alexis HCV AB <0.1 Normal 0.0-0.9 [facility] Comment on above: Performed By: #### R PRQ #### [facility] [address] [place] [address] Dr. Valerio Alexis Hep A Ab, IgM Negative Normal Negative [facility] Comment on above: Performed By: #### R PRQ #### [facility] [address] [place] [address] Dr. Valerio Alexis Hep B Core Ab, IgM Negative Normal Negative [facility] Comment on above: Performed By: #### R PRQ #### [facility] [address] [place] [address] Dr. Valerio Alexis Interpretation: Comment Normal [facility] Comment on above: Result Comment: Nega tive Not infected with HCV, unless recent infection is suspected or other evidence exists to indicate HCV infection. Performed By: #### R PRQ #### [facility] [address] [place] [address] Dr. Valerio Alexis HIV 1 AND 2 WITH REFLEXon HIV Screen 4th Generation wRfx Non-Reactive Normal Non Reactive [facility] Comment on above: Result Comment: HIV Negative HIV-1/HIV-2 antibodies and HIV-1 p24 antigen were NOT detected. There is no laboratory evidence of HIV infection. Performed By: #### N BOX #### [facility] [address] [place] [address] Dr. Valerio Alexis RPR QUANTon 05-20-2022 Rapid Plasma Reagin, Quant Non-Reactive Normal NonRea<1:1 [facility] Comment on above: Result Comment: Plea se Note: This test does not meet current guidelines for screening and diagnosis of syphilis. This test is intended for following treatment response in patients being treated for syphilis infection. To screen for syphilis infection, a reflex cascade that includes both RPR and a treponema-specific assay should be utilized, such as Treponema pallidum (Syphilis) Screening [place] (997203) or Rapid Plasma Reagin (RPR) Test With Reflex to Quantitative RPR and Confirmatory Treponema pallidum Antibodies (290544). Performed By: #### R PRQ #### [facility] [address] [place] [address] Dr. Valerio Alexis CULTURE URINEon 05-19-2022 CULTURE URINE Culture Observations: HEAVY GROWTH OF MIXED GENITAL RICK. NO POTENTIAL PATHOGENS SEEN. Normal [facility] Comment on above: Performed By: #### U RCX #### [facility] [address] [place] [address] Dr. Valerio Alexis CULTURE URINEon 05-18-2022 CULTURE URINE Culture Observations: LIGHT GROWTH OF MIXED GENITAL RICK. NO POTENTIAL PATHOGENS SEEN. Normal [facility] Comment on above: Performed By: #### U RCX #### [facility] [address] [address] [address] Valerio Alexis AFP MATERNAL FOR SPINA BIFID Aon 04-30-2022 AFP MoM 1.13 Normal [facility] Comment on above: Performed By: #### R PRQ #### [facility] [address] [address] [address] Valerio Alexis AFP Value 94.7 ng/mL Normal [facility] Comment on above: Performed By: #### R PRQ #### [facility] [address] [address] [address] Valerio Alexis AFP, Serum for Spina Bifida Report Normal [facility] Comment on above: Performed By: #### R PRQ #### [facility] [address] [address] [address] Valerio Alexis Comment Comment Normal [facility] Comment on above: Result Comment: Willa Domínguez, Ph.D., [facility] Director . References: Available Upon Request. . Multiples Of Median Cutoffs For AFP Elevations Cuenca 2.5 Black 2.8 IDD 2.0 Twins 4.5 Abbreviation Definitions IDD - Insulin Dep Diabetes OSBR - Open Spina Bifida Risk . For further inquiries contact [employer] [facility] at [phone]. . This test was developed and its performance characteristics determined by [employer]. It has not been cleared or approved by the Food and Drug Administration. Performed By: #### R PRQ #### [facility] [address] [address] [address] Valerio Georges Age Collection Date 20.9 weeks Normal [facility] Comment on above: Performed By: #### R PRQ #### [facility] [address] [id number] Valerio Alexis Gestat, Age Based on JOSE [facility] Comment on above: Result Comment: 08/04 Recalculations are not recommended when gestational dating by LMP and ultrasound are within 10 days. Performed By: #### R PRQ #### [facility] [address] [address] [address] Valerio Alexis Insulin Dep Diabetes No Normal [facility] Comment on above: Performed By: #### R PRQ #### [facility] [address] [place] [address] Dr. Valerio Alexis Interpretation Comment Normal [facility] Comment on above: Result Comment: [...] Customer Services to discuss available options. The [employer] recommends amniocentesis be offered to women age 35 and older. Performed By: #### R PRQ #### [facility] [address] [place] [address] Dr. Valerio Alexis [age] Normal [facility] Comment on above: Performed By: #### R PRQ #### [facility] [address] [place] [address] Dr. Valerio Alexis Multiple Gestation No Normal [facility] Comment on above: Performed By: #### R PRQ #### [facility] [address] [place] [address] Dr. Valerio Alexis OSBR Risk 1 IN 8106 Normal [facility] Comment on above: Performed By: #### R PRQ #### [facility] [address] [place] [address] Dr. Valerio Alexis PDF . Normal [facility] Comment on above: Performed By: #### R PRQ #### [facility] [address] [place] [address] Dr. Valerio Alexis Race Normal [facility] Comment on above: Performed By: #### R PRQ #### [facility] [address] [place] [address] Dr. Valerio Alexis Test Results: Negative Normal [facility] Comment on above: Performed By: #### R PRQ #### [facility] [address] [address] [address] Valerio Alexis US PREG ANATOMY SINGLEon [...] #### [facility] [address] [address] [address] Valerio Alexis Neisseria gonorrhoeae, CHULA Negative Normal Negative [facility] Comment on above: Performed By: #### R PRQ #### [facility] [address] [address] [address] Valerio Alexis VAGINITIS/VAGINOSIS DNA PROB Dane 03-25-2022 Ashley species Positive Abnormal Negative [facility] Comment on above: Performed By: #### R PRQ #### [facility] [address] [place] [address] Dr. Valerio Alexis Gardnerella vaginalis Positive Abnormal Negative [facility] Comment on above: Performed By: #### R PRQ #### [facility] [address] [address] [address] Valerio Alexis Trichomonas vaginalis Negative Normal Negative [facility] Comment on above: Performed By: #### R PRQ #### [facility] [address] [place] [address] Dr. Valerio Alexis Covid-19 PCR (CVDTB)on 01-31 [...] for this test is supported by the Guest Request Runner of Health and Human Service's declaration that [...] used). Performed By: #### C VDTBH #### [facility] [address] [place] [address] Dr. Valerio Alexis US PREG TVon 02-16-2022 [...] by: TEAGAN ENRIQUE Date: 2022-02-16 13:14 Normal [facility] CHEMISTRYOrdered By: Roberto Garsia on 02-15-2022 HCG.beta subunit Qn 959650 m[IU]/mL High 1 - 3 mIU/m L [facility] S HEP B SURFACE ANTIGEN SCREEN on 02-12-2022 HBsAg Screen Negative Normal Negative [facility] Comment on above: Performed By: #### H H #### [facility] [address] [place] [address] Dr. Valerio Alexis HEPATITIS C VIRUS AB W/ REFL EX QUANTon 02-12-2022 HCV AB 0.1 s/co ratio Normal 0.0-0.9 [facility] Comment on above: Performed By: #### H H #### [facility] [address] [address] [address] Valerio Alexis Interpretation: Comment Normal [facility] Comment on above: Result Comment: Nega tive Not infected with HCV, unless recent infection is suspected or other evidence exists to indicate HCV infection. Performed By: #### H H #### [facility] [address] [place] [address] Dr. Valerio Alexis HIV 1 AND 2 WITH REFLEXon HIV Screen 4th Generation wRfx Non-Reactive Normal Non Reactive [facility] Comment on above: Result Comment: HIV Negative HIV-1/HIV-2 antibodies and HIV-1 p24 antigen were NOT detected. There is no laboratory evidence of HIV infection. Performed By: #### H IV12 #### [facility] [address] [place] [address] Dr. Valerio Alexis RPR QUANTon 02-12-2022 Rapid Plasma Reagin, Quant Non-Reactive Normal NonRea<1:1 [facility] Comment on above: Result Comment: Michelle levy Note: This test does not meet current guidelines for screening and diagnosis of syphilis. This test is intended for following treatment response in patients being treated for syphilis infection. To screen for syphilis infection, a reflex cascade that includes both RPR and a treponema-specific assay should be utilized, such as Treponema pallidum (Syphilis) Screening [place] (870320) or Rapid Plasma Reagin (RPR) Test With Reflex to Quantitative RPR and Confirmatory Treponema pallidum Antibodies ([id number]). Performed By: #### U RCX #### [facility] [address] [place] [address] Dr. Valerio Alexis RUBELLA AB IGGon 02-12-2022 Rubella Antibodies, IgG 1.88 index Normal Immune >0.99 [facility] Comment on above: Result Comment: Non- immune <0.90 Equivocal 0.90 - 0.99 Immune >0.99 Performed By: #### H H #### [facility] [address] [place] [address] Dr. Valerio Alexis CBC AUTO DIFFon 02-11-2022 BASO # 0.0 103/ul Normal 0.0-0.1 [facility] Comment on above: Performed By: #### H H #### [facility] [address] [place] [address] Dr. Valerio Alexis Basophils/100 WBC (Bld) 0.3 % Normal 0.2-2.0 [facility] Comment on above: Performed By: #### H H #### [facility] [address] [place] [address] Dr. Valerio Alexis EO # 0.1 103/ul Normal 0.0-0.7 [facility] Comment on above: Performed By: #### H H #### [facility] [address] [place] [address] Dr. Valerio Alexis Eosinophils/100 WBC (Bld) 0.9 % Normal 0.9-7.0 [facility] Comment on above: Performed By: #### H H #### [facility] [address] [place] [address] Dr. Valerio Alexis Erythrocyte distribution width (RBC) [Ratio] 12.8 % Normal 11.0-15.0 [facility] Comment on above: Performed By: #### H H #### [facility] [address] [place] [address] Dr. Valerio Alexis Hematocrit (Bld) [Volume fraction] 37.6 % Normal 36.0-48.0 [facility] Comment on above: Performed By: #### H H #### [facility] [address] [place] [address] Dr. Valerio Alexis Hemoglobin (Bld) [Mass/Vol] 12.5 g/dL Normal 12.0-16.0 [facility] Comment on above: Performed By: #### H H #### [facility] [address] [place] [address] Dr. Valerio Alexis IG # 0.04 10e3/ul Critically high 0.00-0.03 [facility] Comment on above: Performed By: #### H H #### [facility] [address] [place] [address] Dr. Valerio Alexis IG % 0.6 % Critically high 0.0-0.5 [facility] Comment on above: Performed By: #### H H #### [facility] [address] [place] [address] Dr. Valerio Alexis LYMPH # 1.5 103/ul Normal 1.2-3.8 [facility] Comment on above: Performed By: #### H H #### [facility] [address] [place] [address] Dr. Valerio Alexis Lymphocytes/100 WBC (Bld) 21.9 % Normal 20.5-60.0 [facility] Comment on above: Performed By: #### H H #### [facility] [address] [place] [address] Dr. Valerio Alexis MANUAL DIFF REQ NO Normal [facility] Comment on above: Performed By: #### H H #### [facility] [address] [place] [address] Dr. Valerio Alexis MCH (RBC) [Entitic mass] 29.0 pg Normal 26.7-34.0 [facility] Comment on above: Performed By: #### H H #### [facility] [address] [address] [address] Valerio Alexis MCHC (RBC) [Mass/Vol] 33.2 g/dL Normal 29.9-35.2 [facility] Comment on above: Performed By: #### H H #### [facility] [address] [address] [address] Valerio Alexis MCV (RBC) [Entitic vol] 87.2 fL Normal 81.0-99.0 [facility] Comment on above: Performed By: #### H H #### [facility] [address] [place] [address] Dr. Valerio Alexis MONO # 0.5 103/ul Normal 0.3-0.8 [facility] Comment on above: Performed By: #### H H #### [facility] [address] [place] [address] Dr. Valerio Alexis Monocytes/100 WBC (Bld) 6.7 % Normal 1.7-12.0 [facility] Comment on above: Performed By: #### H H #### [facility] [address] [place] [address] Dr. Valerio Alexis NEUT # 4.9 103/ul Normal 1.4-6.5 [facility] Comment on above: Performed By: #### H H #### [facility] [address] [place] [address] Dr. Valerio Alexis Neutrophils/100 WBC (Bld) 69.6 % Normal 43.0-75.0 [facility] Comment on above: Performed By: #### H H #### [facility] [address] [address] [address] Valerio Alexis Platelet mean volume (Bld) [Entitic vol] 10.8 fL Normal 9.5-13.5 [facility] Comment on above: Performed By: #### H H #### [facility] [address] [place] [address] Dr. Valerio Alexis PLT 183 103/ul Normal 150-450 [facility] Comment on above: Performed By: #### H H #### [facility] [address] [place] [address] Dr. Valerio Alexis RBC 4.31 106/ul Normal 4.20-5.40 [facility] Comment on above: Performed By: #### H H #### [facility] [address] [place] [address] Dr. Valerio Alexis WBC 7.0 103/ul Normal 4.0-11.0 [facility] Comment on above: Performed By: #### H H #### [facility] [address] [place] [address] Dr. Valerio Alexis CULTURE URINEon 02-11-2022 CULTURE URINE Culture Observations: NO GROWTH. Normal [facility] Comment on above: Performed By: #### U RCX #### [facility] [address] [place] [address] Dr. Valerio Alexis GLYCOHEMOGLOBIN A1Con 2021 ADA RECOMMENDATION SEE BELOW Normal [facility] Comment on above: Result Comment: ADA RECOMMENDED LIMIT 4.0 - 6.0 ADA THERAPEUTIC TARGET < 7.0 ACTION SUGGESTED > 7.0 Performed By: #### H H #### [facility] [address] [place] [address] Dr. Valerio Alexis Glucose [Mass/Vol] 88 mg/dL Normal [facility] Comment on above: Performed By: #### H H #### [facility] [address] [place] [address] Dr. Valerio Alexis HbA1c (Bld) [Mass fraction] 4.7 % Normal 4.5-6.2 [facility] Comment on above: Performed By: #### H H #### [facility] [address] [place] [address] Dr. Valerio RODARTE BOX TEST PT SEND OUTo n 02-11-2022 SENT TO REF LAB 02/11/2022 Normal [facility] Comment on above: Performed By: #### N BOX #### [facility] [address] [place], [place] [address] Dr. Valerio Alexis TYPE AND SCREENon 02-11-2022 TYPE AND SCREEN Negative Normal [facility] Comment on above: Performed By: #### N BOX #### [facility] [address] [place], [place] [address] Dr. Valerio Alexis US PREG TVon 01-26-2022 [...] by: TEAGAN ENRIQUE Date: 2022-01-26 09:46 Normal [facility] PROGRESSon 11-20-2019 PROGRESS HNO ID: [id number] Author: Jose Luis Cao (Amilcar) Jose Enrique Service: ? Author Type: TRAVELING ELECTRICIAN Type: Progress Notes Filed: 11/20/2019 4:36 PM [...] with all of its relevant components. Normal [facility] TSHon 06-11-2018 Thyrotropin Qn 3.104 uIU/mL Normal 0.350-5.500 [facility] Comment on above: Performed By: #### T SH ####[address] [phone] Comp Metabolic Panelon 06-09 Albumin mass conc 4.6 g/dL High 3.2-4.5 [facility] Comment on above: Performed By: #### C MP ####[address] [phone] ALP enzyme act/vol 75 U/L Normal 47-119 [facility] Comment on above: Performed By: #### C MP ####[address] [phone] ALT enzyme act/vol 11 U/L Normal 0-31 [facility] Comment on above: Performed By: #### C MP ####[address] [phone] AST enzyme act/vol 14 U/L Normal 0-31 [facility] Comment on above: Performed By: #### C MP ####[address] [phone] Bili,Total 0.8 mg/dl Normal 0.0-1.0 [facility] Comment on above: Result Comment: Gama ature : 1 Day 1.0-6.0 mg/dl 2 Day 6.0-8.0 mg/dl 3-5 Day 10.0-15.0 mg/dl Performed By: #### C MP ####[address] [phone] Calcium mass conc 9.8 mg/dL Normal 7.6-11.0 [facility] Comment on above: Performed By: #### C MP ####[address] [phone] Chloride molar conc 105 mmol/L Normal 96-108 [facility] Comment on above: Performed By: #### C MP ####[address] [phone] CO2 molar conc 26.2 mmol/L Normal 22.0-29.0 [facility] Comment on above: Performed By: #### C MP ####[address] [phone] Creatinine mass conc 0.82 mg/dL Normal 0.50-1.00 [facility] Comment on above: Result Comment: Gama ature 0.3-1.0 mg/dL Performed By: #### C MP ####[address] [phone] Glucose mass conc 89 mg/dL Normal 70-99 [facility] Comment on above: Result Comment: Henry simental for Diagnosis of Diabetes(Effective 03/07/11):Fasting specimen (no caloric intake for at least 8 hours). <100 mg/dl Normal 100-125 mg/dl Increased Risk for Diabetes >125 mg/dl Diagnostic for DiabetesRandom Glucose (any time of day without regard to last meal). >=200 mg/dl plus Classic Symptoms of Diabetes Performed By: #### C MP ####[address] [phone] Potassium molar conc 3.8 mmol/L Normal 3.3-5.1 [facility] Comment on above: Performed By: #### C MP ####[address] [phone] Protein mass conc 8.1 g/dL Normal 5.9-8.4 [facility] Comment on above: Performed By: #### C MP ####[address] [phone] Sodium molar conc 138 mmol/L Normal 133-145 [facility] Comment on above: Performed By: #### C MP ####[address] [phone] Urea nitrogen mass conc 10 mg/dL Normal 4-19 [facility] Comment on above: Performed By: #### C MP ####[address] [phone] Complete Blood Counton 06-09 Differential Complete Manual Normal [facility] Comment on above: Performed By: #### C BC ####[address] [phone] Erythrocyte distribution width Auto Ratio (RBC) 12.7 % Normal 0.0-14.4 [facility] Comment on above: Performed By: #### C BC ####[address] [phone] Hematocrit Auto Volume Fraction (Bld) 45.1 % Normal 37.0-46.0 [facility] Comment on above: Performed By: #### C BC ####[address] [phone] Hemoglobin mass conc (Bld) 15.2 g/dL High 12.0-15.0 [facility] Comment on above: Performed By: #### C BC ####[address] [phone] Immature granulocytes/100 WBC (Bld) 0.30 % Normal [facility] Comment on above: Result Comment: Sherice ture Granulocyte Percent includes promyelocytes, myelocytes,and metamyelocytes. IG% > 1.0 indicates a left shift ispresent. With automated differentials, bands are includedin the neutrophil count and not in the Immature GranulocytePercent. Performed By: #### C BC ####[place] [phone] MCH Auto Entitic mass (RBC) 29.2 pg Normal 25.0-35.0 [facility] Comment on above: Performed By: #### C BC ####[place] [phone] MCHC Auto mass conc (RBC) 33.7 % Normal 31.0-37.0 [facility] Comment on above: Performed By: #### C BC ####[place] [phone] MCV Auto Entitic volume (RBC) 86.6 fL Normal 78.0-96.0 [facility] Comment on above: Performed By: #### C BC ####[place] [phone] Nucleated RBC/100 WBC Ratio (Bld) 0.0 % Normal -1.0-0.0 [facility] Comment on above: Performed By: #### C BC ####[place] [phone] Platelet mean volume Auto Entitic volume (Bld) 10.5 fL Normal [facility] Comment on above: Result Comment: MPV is plateletrange and agedependent Performed By: #### C BC ####[place] [phone] Platelets Auto #/vol (Bld) 200 10*3/uL Normal 150-450 [facility] Comment on above: Performed By: #### C BC ####[place] [phone] RBC Auto #/vol (Bld) 5.21 10E12/L High 4.10-4.[address] [facility] Comment on above: Performed By: #### C BC ####[address] [phone] WBC Auto #/vol (Bld) 9.0 10*3/uL Normal 4.5-13.0 [facility] Comment on above: Performed By: #### C BC ####[address] [phone] Manual Differentialon 2017 Absolute Neutrophil No. 6.6 Normal [facility] Comment on above: Performed By: #### M DIFF ####[address] [phone] Atypical Lymphocytes 7 % Normal 0-8 [facility] Comment on above: Performed By: #### M DIFF ####[address] [phone] Band Neutrophils 0 % Low 5-11 [facility] Comment on above: Performed By: #### M DIFF ####[address] [phone] Cell Morphology Normal Normal [facility] Comment on above: Performed By: #### M DIFF ####[address] [phone] Lymphocytes 18 % Low 25-45 [facility] Comment on above: Performed By: #### M DIFF ####[address] [phone] Metamyelocytes 0 % Normal 0-0 [facility] Comment on above: Performed By: #### M DIFF ####[address] [phone] Monocytes 2 % Low 3-6 [facility] Comment on above: Performed By: #### M DIFF ####[facility] of [address] [phone] Myelocytes 0 % Normal 0-0 [facility] Comment on above: Performed By: #### M DIFF ####[address] [phone] Promyelocytes 0 % Normal 0-0 [facility] Comment on above: Performed By: #### M DIFF ####[address] [phone] Segmented Neutrophils 73 % High 34-64 [facility] Comment on above: Performed By: #### M DIFF ####[address] [phone] eGFRon 06-09-2018 GFR/1.73 sq M.predicted MDRD vol rate/area 79.58 Normal [facility] Comment on above: Result Comment: Refe rence range:> 3 months:>90 ml/min/1.73m^2Ref. Range change fcbmgmoun73/26/2018 Performed By: #### E GFR ####[address] [phone] Vital Signs Date Time Vital Sign Value Performing Clinician Facility 08-26-2024 14:45-0500 Body mass index (BMI) [Ratio] 23.05 kg/m2 Renata MCNULTY Work Phone: [facility] 08-26-2024 14:45-0500 Body weight 57.15 kg Renata MCNULTY Work Phone: [facility] 08-26-2024 14:45-0500 Diastolic blood pressure 62 mm[Hg] Renata MCNULTY Work Phone: [facility] 08-26-2024 14:45-0500 Systolic blood pressure 100 mm[Hg] Renata MCNULTY Work Phone: [facility] 08-20-2024 14:06-0500 Body mass index (BMI) [Ratio] 23.05 kg/m2 Virginia Royal [employer] Work Phone: [facility] 08-20-2024 14:06-0500 Body temperature 96.91 [degF] Virginia Royal [employer] SAL[employer] Work Phone: [facility] 08-20-2024 14:06-0500 Body weight 57.15 kg Virginia Royal [employer] SAL[employer] Work Phone: [facility] 08-20-2024 14:06-0500 Diastolic blood pressure 76 mm[Hg] Virginia Royal [employer] SAL[employer] Work Phone: [facility] 08-20-2024 14:06-0500 Heart rate 97 /min Virginia Royal [employer] SAL[employer] Work Phone: [facility] 08-20-2024 14:06-0500 SaO2% (BldA) [Mass fraction] 98 % Virginia Royal [employer] SAL[employer] Work Phone: [facility] 08-20-2024 14:06-0500 Systolic blood pressure 124 mm[Hg] Virginia Royal [employer] SAL[employer] Work Phone: [facility] 08-13-2024 11:18-0500 Body mass index (BMI) [Ratio] 22.68 kg/m2 Renata MCNULTY Work Phone: [facility] 08-13-2024 11:18-0500 Body weight 56.25 kg Renata MCNULTY Work Phone: [facility] 08-13-2024 11:18-0500 Diastolic blood pressure 68 mm[Hg] Renata Manley PA Work Phone: [facility] 08-13-2024 11:18-0500 Systolic blood pressure 110 mm[Hg] Renata Manley PA Work Phone: [facility] 08-08-2024 12:03-0500 Heart rate 90 /min Virginia Royal [employer] SAL[employer] Work Phone: [facility] 08-08-2024 11:40-0500 Body height 157.5 cm Virginia Royal [employer] SAL[employer] Work Phone: [facility] 08-08-2024 11:40-0500 Body mass index (BMI) [Ratio] 22.64 kg/m2 Virginia Royal [employer] SAL[employer]ENT Work Phone: [facility] 08-08-2024 11:40-0500 Body weight 56.16 kg Virginia Royal [employer] SAL[employer]ENT Work Phone: [facility] 08-08-2024 11:40-0500 Diastolic blood pressure 72 mm[Hg] Virginia Royal [employer] SAL[employer] Work Phone: [facility] 08-08-2024 11:40-0500 SaO2% (BldA) [Mass fraction] 99 % Virginia Royal [employer] SALES AGENT Work Phone: [facility] 08-08-2024 11:40-0500 Systolic blood pressure 110 mm[Hg] Virginia Royal [employer] SALES AGENT Work Phone: [facility] 07-29-2024 14:52-0400 Body mass index (BMI) [Ratio] 22.5 kg/m2 Nasir Mehdi DO Work Phone: [facility] 07-29-2024 14:52-0400 Body weight 55.79 kg Nasir Mehdi DO Work Phone: [facility] 07-29-2024 14:52-0400 Diastolic blood pressure 70 mm[Hg] Nasir Mehdi DO Work Phone: [facility] 07-29-2024 14:52-0400 Systolic blood pressure 110 mm[Hg] Nasir Mehdi DO Work Phone: [facility] 07-03-2024 14:00-0400 Body mass index (BMI) [Ratio] 21.95 kg/m2 Renata MCNULTY Work Phone: [facility] 07-03-2024 14:00-0400 Body weight 54.43 kg Renata MCNULTY Work Phone: [facility] 07-03-2024 14:00-0400 Diastolic blood pressure 66 mm[Hg] Renata MCNULTY Work Phone: [facility] 07-03-2024 14:00-0400 Systolic blood pressure 100 mm[Hg] Renata MCNULTY Work Phone: [facility] 07-20-2023 12:50-0400 Body height 157.48 cm Augusto Brewer Other [employer] Other 07-20-2023 12:50-0400 Body mass index (BMI) [Ratio] 18.47 kg/m2 Augusto Brewer Other [employer] Other 07-20-2023 12:50-0400 Body temperature 98.2 [degF] Augusto Brewer Other [employer] Other 07-20-2023 12:50-0400 Body weight 45.81 kg Augusto Brewer Other [employer] Other 07-20-2023 12:50-0400 Diastolic blood pressure 63 mm[Hg] Augusto Brewer Other [employer] Other 07-20-2023 12:50-0400 Respiratory rate 17 /min Augusto Brewer Other [employer] Other 07-20-2023 12:50-0400 SaO2% (BldA) [Mass fraction] 98 % Augusto Brewer Other [employer] Other 07-20-2023 12:50-0400 Systolic blood pressure 113 mm[Hg] Augusto Brewer Other [employer] Other 07-17-2023 09:40-0400 Body height 157.48 cm Mel Tomlinson Other [employer] Other 07-17-2023 09:40-0400 Body mass index (BMI) [Ratio] 18.65 kg/m2 Mel Crenshawmond Other [employer] Other 07-17-2023 09:40-0400 Body temperature 98.7 [degF] Mel Bushra Other [employer] Other 07-17-2023 09:40-0400 Body weight 46.27 kg Mel Tomlinson Other [employer] Other 07-17-2023 09:40-0400 Diastolic blood pressure 70 mm[Hg] Mel Bushra Other [employer] Other 07-17-2023 09:40-0400 Respiratory rate 18 /min Mel Crenshawmond Other [employer] Other 07-17-2023 09:40-0400 SaO2% (BldA) [Mass fraction] 98 % Mel Crenshawmond Other [employer] Other 07-17-2023 09:40-0400 Systolic blood pressure 107 mm[Hg] Mel Bushra Other [employer] Other 09-27-2022 22:50-0500 Body temperature 98.24 [degF] [facility] 09-27-2022 22:50-0500 Diastolic blood pressure 81 mm[Hg] [facility] 09-27-2022 22:50-0500 Heart rate 99 /min Gabino [facility] 09-27-2022 22:50-0500 Respiratory rate 18 /min [facility] 09-27-2022 22:50-0500 SaO2% (BldA) [Mass fraction] 99 % [facility]ino [facility] 09-27-2022 22:50-0500 Systolic blood pressure 121 mm[Hg] [facility] 04-30-2022 02:06-0400 Body weight 49.[address] NASIR HARDING . [facility] Comment on above: Performed By: #### RPRQ #### [facility] [address] [place] [address] Dr. Valerio Alexis Encounters Encounter Date Encounter Type Care Provider Facility Start: 08-26-2024 End: 08-26-2024 ambulatory RENATA MANLEY Not Available Start: 08-26-2024 End: 08-26-2024 Office outpatient visit 15 minutes Renata MCNULTY Work Phone: [facility] Comment on above: Upper respiratory in fection, acute (Primary Dx); Third trimester ; 32 weeks gestation of ; Sinusitis, unspecified chronicity, unspecified location; Anemia, unspecified type Start: 08-26-2024 End: 08-26-2024 Bamboo flowsheet Renata MCNULTY Work Phone: [facility] Start: 08-26-2024 End: 08-26-2024 Bamboo flowsheet Renata MCNULTY Work Phone: [facility] Start: 08-20-2024 End: 08-20-2024 ambulatory VIRGINIA A HACKENBURG Not Available Start: 08-20-2024 End: 08-20-2024 Bamboo flowsheet Virginia A Hackenburg [employer] Work Phone: [facility] Start: 08-20-2024 End: 08-20-2024 Bamboo flowsheet Virginia A Hackenburg [employer] SAL[employer]ENT Work Phone: [facility] Start: 08-20-2024 End: 08-20-2024 Office outpatient visit 25 minutes Virginia A Hackenburg [employer] SAL[employer]ENT Work Phone: [facility] Comment on above: Left arm pain (Prima ry Dx); Recurrent UTI Start: 08-13-2024 End: 08-13-2024 Bamboo flowsheet Renata Manley PA Work Phone: [facility] Start: 08-13-2024 End: 08-13-2024 Bamboo flowsheet Renata Manley PA Work Phone: [facility] Start: 08-13-2024 End: 08-13-2024 ambulatory RENATA MANLEY Not Available Start: 08-13-2024 End: 08-13-2024 Office outpatient visit 15 minutes Renata Manley PA Work Phone: [facility] Comment on above: Third trimester preg cally; 30 weeks gestation of ; Diabetes mellitus screening Start: 08-08-2024 End: 08-08-2024 Bamboo flowsheet Virginia A Hatdenburg [employer] SAL[employer]ENT Work Phone: [facility] Start: 08-08-2024 End: 08-08-2024 Bamboo flowsheet Virginia A Hatdenburg [employer] SAL[employer]ENT Work Phone: [facility] Start: 08-08-2024 End: 08-08-2024 Telephone encounter Lee Lea MD Work Phone: [facility] Start: 08-08-2024 End: 08-08-2024 ambulatory VIRGINIA A HACKENBURG Not Available Start: 08-08-2024 End: 08-08-2024 Office outpatient visit 15 minutes Virginia A Hackenburg [employer] SAL[employer]ENT Work Phone: [facility] Comment on above: Pyelonephritis affec ting in third trimester (Primary Dx); Recurrent UTI Start: 08-05-2024 End: 08-05-2024 ambulatory YAMINI DEAN [facility] Start: 08-04-2024 ambulatory NO PCP NO PCP [facility] Start: 08-03-2024 End: 08-05-2024 ambulatory LEE ZARATE [facility] Start: 07-29-2024 End: 07-29-2024 Office outpatient visit 15 minutes Nasir Mehdi DO Work Phone: [facility] Comment on above: Third trimester preg cally; 28 weeks gestation of ; Allergy, initial encounter; size inconsistent with dates Start: 07-29-2024 End: 07-29-2024 ambulatory NASIR MEHDI Not Available Start: 07-29-2024 End: 07-29-2024 Bamboo flowsheet Nasir Mehdi DO Work Phone: [facility] Start: 07-29-2024 End: 07-29-2024 Bamboo flowsheet Nasir Mehdi DO Work Phone: [facility] Start: 07-03-2024 End: 07-03-2024 Bamboo flowsheet Renata MCNULTY Work Phone: [facility] Start: 07-03-2024 End: 07-11-2024 Bamboo flowsheet Renata MCNULTY Work Phone: [facility] Start: 07-03-2024 End: 07-11-2024 Clinisync Result Encounter Nasir Mehdi DO Work Phone: [facility] External Department Unsolicited Start: 07-03-2024 End: 07-05-2024 External Result Encounter Renata MCNULTY Work Phone: [facility] External Department Unsolicited Start: 07-03-2024 End: 07-03-2024 Office outpatient visit 15 minutes Renata MCNULTY Work Phone: [facility] Comment on above: Diabetes mellitus sc reening; Well woman exam with routine gynecological exam; Heartburn during in second trimester Start: 07-03-2024 End: 07-03-2024 Patient encounter procedure Renata MCNULTY Work Phone: [facility] Start: 07-03-2024 End: 07-03-2024 ambulatory RENATA MANLEY Not Available Start: 06-05-2024 End: 06-05-2024 ambulatory NASIR MEHDI Not Available Start: 05-09-2024 End: 05-09-2024 ambulatory NASIR MEHDI Not Available Start: 03-11-2024 End: 03-11-2024 Emergency department patient visit NO PCP NO PCP [facility] Start: 11-26-2023 End: 11-27-2023 Emergency department patient visit SLIME ELLER [facility] Start: 07-26-2023 End: 07-26-2023 ambulatory Mel Tomlinson Other [employer] Other Start: 07-26-2023 Telephone encounter Mel [facility]QUE[facility] Start: 07-20-2023 End: 07-20-2023 ambulatory Augusto Brewer Other [employer] Other Start: 07-20-2023 Office outpatient vi sit 15 minutes Augusto Brewer [facility] Start: 07-17-2023 Office outpatient ne w 20 minutes Mel Tomlinson [facility] Start: 07-17-2023 End: 07-17-2023 ambulatory Mel Tomlinson Facility:[facility] Start: 07-17-2023 End: 07-17-2023 ambulatory [employer] SAL[employer]ENT-C Mel Tmolinson Work Phone: [facility] Work Phone: Start: 07-17-2023 End: 07-17-2023 Departed Referred [employer]OUND SALES AGENT-C Mel Tomlinson Work Phone: [facility] [place] Work Phone: Start: 12-27-2022 End: 12-27-[address] DOCTOR SHARMA Facility:[facility] Start: 11-19-2022 End: 11-19-[address] DOCTOR SHARMA Facility:[facility] Start: 10-24-2022 End: 10-24-[address] DOCTOR SHARMA Facility:[facility] Start: 09-27-2022 End: 09-27-2022 Emergency department patient visit Gabino [facility] Start: 08-30-2022 End: 08-30-[address] DOCTOR [...] Start: 08-04-2022 End: 08-04-[address] NASIR HARDING . Facility:[facility] Start: 08-01-2022 End: 08-01-2022 [...] Start: 05-31-2022 End: 06-01-[address] DOCTOR SHARMA Facility:[facility] Start: 05-19-2022 End: 05-20-[address] DOCTOR SHARMA Facility:[facility] Start: 05-18-2022 End: 05-18-[address] NASIR HARDING . Facility:[facility] Start: 05-09-[address] NASIR HARDING . Facili ty:[facility] Start: 04-20-2022 End: 04-21-[address] NASIR HARDING . Facility:[facility] Start: 04-19-2022 End: 04-20-[address] NASIR HARDING . Facility:[facility] Start: 03-24-2022 End: 03-24-[address] NASIR HARDING . Facility:[facility] Start: 02-25-2022 End: 02-25-[address] NASIR HARDING . Facility:[facility] Start: 02-16-2022 End: 02-17-[address] NASIR HARDING . Facility:[facility] Start: 02-15-2022 End: 02-15-2022 Patient encounter procedure [facility] Start: 02-11-2022 End: 02-12-[address] NASIR HARDING . Facility:[facility] Start: 01-26-2022 End: 01-27-[address] NASIR HARDING . Facility:[facility] Start: 06-08-2018 End: 06-11-2018 Evaluation and management of inpatient ROSE MARY LUIS [facility] Start: 06-06-2018 End: 06-08-2018 Evaluation and management of inpatient CONOR SANTOYO [facility] Start: 02-22-2018 End: 02-22-2018 Patient encounter MAIRA BOUDREAUX [facility] Procedures Date Procedure Procedure Detail Performing Clinician Start: 08-26-2024 Urnls dip stick/tabl et rgnt non-auto w/o micrscp Renata MCNULTY Work Phone: Start: 08-13-2024 Urnls dip stick/tabl et rgnt non-auto w/o micrscp Renata MCNULTY Work Phone: Start: 08-04-2024 Adult depression scr eening assessment Lee Lea MD Work Phone: Start: 07-29-2024 Urnls dip stick/tabl et rgnt non-auto w/o micrscp Nasir Harding DO Work Phone: Start: 07-03-2024 IGP,APTIMA HPV,AGE GDLN Nasir Harding DO Work Phone: Start: 07-03-2024 Microscopic observat ion [Identifier] in Cervix by Cyto stain Lee Lea MD Work Phone: Start: 07-03-2024 URETHRITIS/DISCHARGE PLUS VAGINITIS [...] NASIR HARDING . Start: 08-24-2022 Repair Vulva, Wafer Fab Technician al Approach DR NASIR HARDING . None (qualifier value) Ranjan Esqueda Plan of Treatment Date Care Activity Detail Author Start: 07-03-2027 Screening for malign ant neoplasm of cervix Pap Smear [facility] Start: 08-05-2025 Tobacco Screening Tobacco Screening [facility] Start: 08-04-2025 Adult BMI Screening Adult BMI Screen ing [facility] Start: 08-04-2025 Depression Screening Depression Scre ening [facility] Start: 06-02-2025 DTaP,Tdap and Td Vac cines (7 - Td or Tdap) DTaP,Tdap and Td Vaccines (7 - Td or Tdap) [facility] Start: 09-16-2024 End: 09-16-2024 Patient encounter procedure 09/16/2024 10:30 AM EST Routine [facility] [address] [place] [id number] Nasir Harding DO [address] [place], [place] [id number] [facility] Start: 09-07-2024 End: 08-08-2025 Basic metabolic 2000 panel - Serum or Plasma Basic Metabolic Panel Lab Routine Primary hydronephrosis Expected: 09/07/2024 (Approximate), Expires: 08/08/2025 [facility] Comment on above: Expected: 09/07/2024 (Approximate), Expires: 08/08/2025 Start: 09-07-2024 End: 08-08-2025 US Retroperitoneum Ultrasound retroperitoneal complete Imaging Routine Primary hydronephrosis Expected: 09/07/2024 (Approximate), Expires: 08/08/2025 [facility] Work Phone: Comment on above: Expected: 09/07/2024 (Approximate), Expires: 08/08/2025 Start: 08-26-2024 End: 08-26-2024 Patient encounter procedure 08/26/2024 2:20 PM EST Routine [facility] [address] [id number] Renata Manley PA [address] [place], [place] [id number] [facility] Start: 08-20-2024 End: 08-20-2025 US.doppler Upper extremity vein - left Vascular US upper extremity venous duplex left Imaging STAT Left arm pain Expected: 08/20/2024, Expires: 08/20/2025 [facility] Work Phone: Comment on above: Expected: 08/20/2024 , Expires: 08/20/2025 Start: 08-13-2024 End: 08-13-2025 CBC panel - Blood by Automated count CBC Lab Routine Diabetes mellitus screening Expected: 08/13/2024 (Approximate), Expires: 08/13/2025 [facility] Work Phone: Comment on above: Expected: 08/13/2024 (Approximate), Expires: 08/13/2025 Start: 08-13-2024 End: 08-13-2025 Measurement of glucose 1 hour after glucose challenge for glucose tolerance test Glucose tolerance, 1 hour Lab Routine Diabetes mellitus screening Expected: 08/13/2024 (Approximate), Expires: 08/13/2025 [facility] Comment on above: Expected: 08/13/2024 (Approximate), Expires: 08/13/2025 Start: 08-13-2024 End: 08-13-2024 Patient encounter procedure 08/13/2024 10:50 AM EST Routine [facility] [address] [place] [address] Renata Manley PA [address] [place], [place] [id number] [facility] Start: 08-13-2024 End: 08-13-2024 Professional / ancillary services management 08/13/2024 10:30 AM EST Ancillary Procedure [facility] [address] [place] [id number] [facility] Start: 07-29-2024 End: 07-29-2024 Patient encounter procedure [facility] Comment on above: Arrived Start: 07-29-2024 End: 07-29-2025 US for US OB SCAN FOR GROWTH Imaging Routine size inconsistent with dates Expected: 07/29/2024 (Approximate), Expires: 07/29/2025 [facility] Work Phone: Comment on above: Expected: 07/29/2024 (Approximate), Expires: 07/29/2025 Start: 07-04-2024 End: 07-04-2024 Professional / ancillary services management 07/04/2024 9:00 AM EDT Ancillary Procedure [facility] [address] [place] [address] [facility] Start: 07-03-2024 End: 07-03-2025 CBC panel - Blood by Automated count CBC Lab Routine Diabetes mellitus screening Expected: 07/03/2024 (Approximate), Expires: 07/03/2025 [facility] Work Phone: Comment on above: Expected: 07/03/2024 (Approximate), Expires: 07/03/2025 Start: 07-03-2024 End: 07-03-2025 Measurement of glucose 1 hour after glucose challenge for glucose tolerance test Glucose tolerance, 1 hour Lab Routine Diabetes mellitus screening Expected: 07/03/2024 (Approximate), Expires: 07/03/2025 [facility] Comment on above: Expected: 07/03/2024 (Approximate), Expires: 07/03/2025 Start: 07-03-2024 End: 07-03-2024 Patient encounter procedure 07/03/2024 1:30 PM EDT Routine [facility] [address] [place] [address] Renata Manley PA [address] [place], [place] [id number] Arrived [facility] Comment on above: Arrived Start: 06-02-2024 COVID-19 Vaccine ( season) COVID-19 Vaccine ( season) [facility] Start: 06-02-2024 Influenza vaccination [facility] Start: 07-17-2023 [facility] Start: 2002 Screening for Chlamy yoel trachomatis Chlamydia Screening [facility] Start: 2002 Tobacco Counseling Tobacco Counselin [facility] Atopobium vaginae DN A [Presence] in Vaginal fluid by CHULA with probe detection [facility] Bacterial vaginosis associated bacterium 2 DNA [Presence] in Vaginal fluid by CHULA with probe detection [facility] Cytology Cervical or vaginal smear or scraping study Pap Smear Pathology and Cytology Routine Well woman exam with routine gynecological exam Ordered: 07/03/2024 [facility] Comment on above: Ordered: 07/03/2024 Megasphaera sp type 1 DNA [Presence] in Vaginal fluid by CHULA with probe detection [facility] Immunizations Immunization Date Immunization Notes Care Provider Fa cility 09-17-2018 influenza, injectabl e, quadrivalent, preservative free Renata MCNULTY Work Phone: [facility] 09-17-2018 meningococcal B vaccine, recombinant, OMV, adjuvanted Renata MCNULTY Work Phone: [facility] 09-17-2018 influenza virus vaccine, unspecified formulation Renata MCNULTY Work Phone: [facility] 07-06-2018 meningococcal B vaccine, recombinant, OMV, adjuvanted Renata MCNULTY Work Phone: [facility] 07-06-2018 meningococcal polysaccharide (groups A, C, Y and W-135) diphtheria toxoid conjugate vaccine (MCV4P) Renata MCNULTY Work Phone: [facility] 11-25-2017 influenza, seasonal, injectable Gabrielle Es[facility] Comment on above: Reason for Medicatio n: Other (see comment) 11-25-2017 influenza, injectabl e, quadrivalent, preservative free Renata MCNULTY Work Phone: [facility] 12-01-2015 hepatitis A vaccine, pediatric/adolescent dosage, 2 dose schedule Renata MCNULTY Work Phone: [facility] 12-01-2015 human papilloma viru s vaccine, quadrivalent Renata MCNULTY Work Phone: [facility] 12-01-2015 influenza virus vaccine, whole virus Renata MCNULTY Work Phone: [facility] 08-04-2015 human papilloma viru s vaccine, quadrivalent Renata MCNULTY Work Phone: [facility] 06-02-2015 hepatitis A vaccine, pediatric/adolescent dosage, 2 dose schedule Renata MCNULTY Work Phone: [facility] 06-02-2015 human papilloma viru s vaccine, quadrivalent Renata MCNULTY Work Phone: [facility] 06-02-2015 meningococcal ACWY vaccine, unspecified formulation Renata MCNULTY Work Phone: [facility] 06-02-2015 tetanus toxoid, redu edi diphtheria toxoid, and acellular pertussis vaccine, adsorbed Renata MCNULTY Work Phone: [facility] 06-01-2007 diphtheria, tetanus toxoids and acellular pertussis vaccine, unspecified formulation Renata Vineet HAMLET Work Phone: [facility] 06-01-2007 measles, mumps, rubella, and varicella virus vaccine Renata Vineet HAMLET Work Phone: [facility] 06-01-2007 poliovirus vaccine, inactivated Renata MCNULTY Work Phone: [facility] 10-24-2003 diphtheria, tetanus toxoids and acellular pertussis vaccine, unspecified formulation Renata Vineet PA Work Phone: [facility] 10-24-2003 poliovirus vaccine, unspecified formulation Renata MCNULTY Work Phone: [facility] 10-10-2003 hepatitis B vaccine, pediatric or pediatric/adolescent dosage Renata MCNULTY Work Phone: [facility] 10-10-2003 measles, mumps and rubella virus vaccine Renata Henderson PA Work Phone: [facility] 10-10-2003 pneumococcal conjuga te vaccine, 7 valent Renata MCNULTY Work Phone: [facility] 04-10-2003 varicella virus vaccine Renaat Henderson PA Work Phone: [facility] 2002 diphtheria, tetanus toxoids and acellular pertussis vaccine, unspecified formulation Renata MCNULTY Work Phone: [facility] 2002 pneumococcal conjuga te vaccine, 7 valent Renata MCNULTY Work Phone: [facility] 2002 diphtheria, tetanus toxoids and acellular pertussis vaccine, unspecified formulation Renata MCNULTY Work Phone: [facility] 2002 pneumococcal conjuga te vaccine, 7 valent Renata MCNULTY Work Phone: [facility] 2002 poliovirus vaccine, inactivated Renata MCNULTY Work Phone: [facility] 2002 diphtheria, tetanus toxoids and acellular pertussis vaccine, unspecified formulation Renata MCNULTY Work Phone: [facility] 2002 hepatitis B vaccine, pediatric or pediatric/adolescent dosage Renata MCNULTY Work Phone: [facility] 2002 pneumococcal conjuga te vaccine, 7 valent Renata MCNULTY Work Phone: [facility] 2002 poliovirus vaccine, inactivated Renata MCNULTY Work Phone: [facility] 2002 diphtheria, tetanus toxoids and acellular pertussis vaccine, unspecified formulation Renata MCNULTY Work Phone: [facility] 2002 pneumococcal conjuga te vaccine, 7 valent Renata MCNULTY Work Phone: [facility] 2002 poliovirus vaccine, unspecified formulation Renata MCNULTY Work Phone: [facility] 2002 hepatitis B vaccine, pediatric or pediatric/adolescent dosage Renata MCNULTY Work Phone: [facility] NEGATED: Highlighted row has not occurred!11-20-2019 influenza virus vaccine, live, attenuated, for intranasal use Gabrielle Y[facility] Payers Date Payer Category Payer Medicaid [id number] 2023 Private Health Insurance [facility] MEDICA[facility] [id number] 2002 Unknown [id number] 2.16.840.1.699677.3.579.2. 593 2002 Unknown [id number] 2.16.840.1.557625.3.579.2. 593 2002 Unknown [id number] 2.16.840.1.241570.3.579.2. 593 2002 Unknown [id number] 2.16.840.1.014612.3.579.2. 593 2002 Unknown [id number] 2.16.840.1.185913.3.579.2. 593 2002 Unknown [id number] 2.16.840.1.971895.3.579.2. 593 2002 Unknown [id number] 2.16.840.1.589450.3.579.2. 593 2002 Unknown [id number] 2.16.840.1.723650.3.579.2. 593 2002 Unknown [id number] 2.16.840.1.895861.3.579.2. 593 2002 Unknown [id number] 2.16.840.1.085805.3.579.2. 593 2002 Unknown [id number] 2.16.840.1.823275.3.579.2. 593 2002 Unknown [id number] 2.16.840.1.403258.3.579.2. 593 2002 Unknown [id number] 2.16.840.1.313578.3.579.2. 593 2002 Unknown [id number] 2.16.840.1.215073.3.579.2. 593 2002 Unknown [id number] 2.16.840.1.002327.3.579.2. 593 2002 Unknown [id number] 2.16.840.1.655368.3.579.2. 593 2002 Unknown [id number] 2.16.840.1.690646.3.579.2. 593 2002 Unknown [id number] 2.16.840.1.715425.3.579.2. 593 2002 Unknown [id number] 2.16.840.1.153869.3.579.2. 593 2002 Unknown [id number] 2.16.840.1.178210.3.579.2. 593 2002 Unknown [id number] 2.16.840.1.666267.3.579.2. 593 2002 Unknown [id number] 2.16.840.1.106926.3.579.2. 593 2002 Unknown [id number] 2.16.840.1.200448.3.579.2. 593 2002 Unknown [id number] 2.16.840.1.261155.3.579.2. 593 2002 Unknown [id number] 2.16.840.1.554509.3.579.2. 593 2002 Unknown [id number] 2.16.840.1.025691.3.579.2. 593 2002 Unknown [id number] 2.16.840.1.234699.3.579.2. 593 2002 Unknown [id number] 2.16.840.1.211383.3.579.2. 593 2002 Unknown [id number] 2.16.840.1.180201.3.579.2. 593 2002 Unknown [id number] 2.16.840.1.816061.3.579.2. 593 2002 Unknown [id number] 2.16.840.1.481781.3.579.2. 593 2002 Unknown [id number] 2.16.840.1.893456.3.579.2. 593 2002 Unknown [id number] 2.16.840.1.707799.3.579.2. 593 2002 Unknown [id number] 2.16.840.1.804964.3.579.2. 6 2002 Unknown [id number] 2.16.840.1.927710.3.579.2. 1286 2002 Unknown [id number] 2.16.840.1.821789.3.579.2. 128 2002 Unknown [id number] 2.16.840.1.997002.3.579.2. 9 2002 Unknown [id number] 2.16.840.1.575854.3.579.2. 1258 2002 Unknown [id number] 2.16.840.1.331636.3.579.2. 1258 2002 Unknown [id number] 2.16.840.1.089056.3.579.2. 1258 2002 Unknown [id number] 2.16.840.1.263018.3.579.2. 1258 2002 Unknown [id number] 2.16.840.1.953808.3.579.2. 1258 2002 Unknown [id number] 2.16.840.1.364756.3.579.2. 1258 2002 Unknown [id number] 2.16.840.1.562504.3.579.2. 1258 2002 Unknown [id number] 2.16.840.1.440689.3.579.2. 1258 2002 Unknown [id number] 2.16.840.1.219047.3.579.2. 1286 1959 Self-pay 1959 Unknown [id number] 1959 Unknown [id number] Unknown [id number] 2.16.840.1.572139.3.579.2. 593 Unknown [id number] 2.840.1.041964.3.579.2. 531 Social History Date Type Detail Facility Start: 05-19-2021 Tobacco smoking status Never s moked tobacco (finding) [facility] Comment on above: denies denies denies Tobacco smoking status Never [facility] Comment on above: denies denies denies Start: 05-09-2024 End: 08-08-2024 Sex Assigned At Female [facility] Start: 2002 Sex Assigned At Female [facility] Start: 05-09-2024 End: 08-08-2024 Tobacco smoking status NHIS Ex-smoker [facility] History of tobacco use Current smoker [facility] Start: 10-02-2023 End: 07-21-2024 History of tobacco use Cigarette Smoker [facility] Start: 05-09-2024 End: 08-08-2024 Tobacco use and exposure Smokeless tobacco non-user [facility] Start: 06-05-2024 End: 08-26-2024 Alcoholic beverage intake Ex-drinker (finding) [facility] Start: 06-05-2024 End: 08-08-2024 Alcoholic beverage intake [facility] Start: 01-27-2024 [facility] Start: 2002 Sex assigned at Not on file [facility] Start: 10-02-2023 Tobacco smoking stat us NHIS Occasional tobacco smoker [facility] Has the [employer], [place], [employer], or water [employer] threatened to shut off services in your home in past 12Mo No [facility] Are you now , , , , never or living with a partner? Never [facility] How hard is it for y ou to pay for the very basics like food, housing, medical care, and heating Not very hard [facility] The thought of alex mendieta myself has occurred to me Never [facility] Start: 08-04-2024 Tobacco Comment Pt states quit 2 weeks ago [facility] Start: 12-09-2020 Sex Female (finding) [facility] Start: 08-04-2024 Gender identity Identifies as female gender (finding) [facility] Start: 08-04-2024 Sexual orientation Heterosexual (fin ding) [facility] Start: 08-20-2024 Alcohol Comment Caffine: 1 cup daily [facility] Goals Date Patient Goal Desired Activity /State Personal health goal Functional Status Date Assessment Result Facility 09-27-2022 Functional Status Yes [facility] Clinical Notes 04-14-2021 to 08-26-2024 HAMLET Underwood - 08/26/2024 2:20 PM Renae Royal NP - 08/20/2024 2:00 PM HAMLET Gann - 08/13/2024 10:50 AM ESTTelephone Encounter - Lee Lea MD - 08/08/2024 5:48 PM EST Note Date & Type Note Facility 08-26-2024 History of Presen t illness Narrative Reason for Appointment: Patient ID: Becca Stafford is a 24 y.o. female who presents for Routine Visit Patient presents today for Return OB appointment. MEDICATIONS Current Outpatient Medications Medication Instructions aspirin 325 mg, Oral, Daily azithromycin (Zithromax Z-Kermit) 250 MG tablet As directed omeprazole (PRILOSEC) 20 mg, Oral, Nightly, Do not crush or chew. ondansetron (ZOFRAN) 4 mg, Oral, Every 6 hours PRN, Take 1 tablet by mouth every 6 hours as needed for nausea. ALLERGIES No Known Allergies PROBLEMS Active Ambulatory Problems Diagnosis Date Noted Acute vaginitis 06/12/2023 Anxiety 06/12/2023 Body mass index (BMI) of 19.0-19.9 in adult 06/12/2023 Childhood eating disorder ([facility]) 06/12/2023 Depressive disorder ([facility]) 06/07/2018 Disorder of refraction and accommodation 02/11/2014 Dysmenorrhea 06/12/2023 Menorrhagia with regular cycle 06/12/2023 Myopia 01/07/2015 Overactive bladder 09/15/2016 Overdose of antipsychotic, intentional self-harm, initial encounter ([facility]) 06/06/2018 Pharyngitis 06/12/2023 Tonsillitis 06/12/2023 Recurrent UTI 09/15/2016 Sore throat 06/12/2023 Viral gastritis 06/12/2023 Viral gastroenteritis 06/12/2023 Right lower quadrant abdominal pain affecting 08/04/2024 Resolved Ambulatory Problems Diagnosis Date Noted No Resolved Ambulatory Problems Past Medical History: Diagnosis Date Headache Heartburn in Labia irritation HISTORY PAST MEDICAL HISTORY SOCIAL HISTORY Past Medical History: Diagnosis Date Headache Heartburn in Labia irritation Social History Tobacco Use Smoking status: Former Current packs/day: 0.00 Types: Cigarettes Smokeless tobacco: Never Vaping Use Vaping status: Every Day Substances: Nicotine, Flavoring Devices: Disposable Substance Use Topics Alcohol use: Not Currently Alcohol/week: 1.0 standard drink of alcohol Types: 1 Standard drinks or equivalent per week Comment: Caffine: 1 cup daily Drug use: Never FAMILY HISTORY No family history on file. SURGICAL HISTORY History reviewed. No pertinent surgical history. REVIEW OF SYSTEMS Review of Systems: Review of Systems Constitutional: Negative. HENT: Positive for congestion. Eyes: Negative. Respiratory: Positive for cough. Cardiovascular: Negative. Gastrointestinal: Negative. Genitourinary: Negative. Musculoskeletal: Negative. Skin: Negative. Neurological: Negative. All other systems reviewed and are negative. Hematological: Negative. Endocrine: Negative. Allergic/Immunologic: Negative. OBJECTIVE Objective: Physical Exam Constitutional: Appearance: Normal appearance. She is normal weight. HENT: Head: Normocephalic. Cardiovascular: Rate and Rhythm: Normal rate. Pulses: Normal pulses. Pulmonary: Effort: Pulmonary effort is normal. Breath sounds: Normal breath sounds. Abdominal: Palpations: Abdomen is soft. Musculoskeletal: General: Normal range of motion. Neurological: General: No focal deficit present. Mental Status: She is alert and oriented to person, place, and time. Psychiatric: Mood and Affect: Mood normal. Behavior: Behavior normal. Thought Content: Thought content normal. Judgment: Judgment normal. Vitals and nursing note reviewed. Vitals: Estimated body mass index is 23.05 kg/m as calculated from the following: Height as of 24: 5' 2 . Weight as of this encounter: 126 lb. BP: 100/62 No LMP recorded (lmp unknown). Patient is . ASSESSMENT & PLAN ICD-10-CM 1. Third trimester Z34.93 POCT urinalysis dipstick manually resulted 2. 32 weeks gestation of Z3A.32 3. Sinusitis, unspecified chronicity, unspecified location J32.9 azithromycin (Zithromax Z-Kermit) 250 MG tablet Return OB: Patient presents today for a routine obstetrics appointment. Patient is currently 32w2d . Patient states she is doing well but has complaints of being tired due to current . Patient has verbalizes frequent movement. labor precautions was discussed/given and patient was instructed to perform kick counts three times a day. Patient presents with URI symptoms including cough and congestion. Discussed case with Dr. Harding and will treat with Zpack and Cheratussin. Return with any worsening symptoms or concerns Orders Placed This Encounter Procedures POCT urinalysis dipstick manually resulted Follow Up: Patient is to return to office in 2 week for routine OB appointment. Documented by HAMLET Underwood on behalf of: HAMLET Underwood documented in this encounter [facility] 08-20-2024 History of Presen t illness Narrative Images from the original note were not included. Becca Stafford is a 24 y.o. female presents with chief complaint of Establish Care HPI: HPI History of Present Illness The patient presents for evaluation of pain in the arm. She reports experiencing pain in her arm, which is sensitive to touch and appears bruised. The pain extends throughout her entire arm. She also mentions persistent side pain, despite an ultrasound of her kidneys showing no stones or blockages. She is currently on a 10-day course of cephalexin, which she is nearing completion of. She denies experiencing shortness of breath or chest pain. SUBJECTIVE: MEDICATIONS: ALLERGIES Current Outpatient Medications Medication Instructions fluticasone (Flonase) 50 MCG/ACT nasal spray 2 sprays, Each Nostril, 2 times daily, Shake gently. Before first use, prime pump. After use, clean tip and replace cap. omeprazole (PRILOSEC) 20 mg, Oral, Nightly, Do not crush or chew. ondansetron (ZOFRAN) 4 mg, Oral, Every 6 hours PRN, Take 1 tablet by mouth every 6 hours as needed for nausea. ondansetron ODT (ZOFRAN-ODT) 4 mg No Known Allergies PAST MEDICAL HISTORY: SOCIAL HISTORY SURGICAL HISTORY: Past Medical History: Diagnosis Date Headache Heartburn in Labia irritation Social History Tobacco Use Smoking status: Former Current packs/day: 0.00 Types: Cigarettes Smokeless tobacco: Never Vaping Use Vaping status: Every Day Substances: Nicotine, Flavoring Devices: Disposable Substance Use Topics Alcohol use: Not Currently Alcohol/week: 1.0 standard drink of alcohol Types: 1 Standard drinks or equivalent per week Comment: Caffine: 1 cup daily Drug use: Never History reviewed. No pertinent surgical history. REVIEW OF SYMPTOMS: Review of Systems Constitutional: Negative. HENT: Negative. Respiratory: Negative for cough, shortness of breath and wheezing. Cardiovascular: Negative for chest pain. Gastrointestinal: Negative for abdominal pain. Genitourinary: Negative. Musculoskeletal: Negative. Skin: Negative. Neurological: Negative. OBJECTIVE: Vitals: 08/20/24 1406 Temp: 96.9 F Physical Exam Vitals and nursing note reviewed. Constitutional: Appearance: Normal appearance. HENT: Head: Normocephalic and atraumatic. Right Ear: Tympanic membrane normal. Left Ear: Tympanic membrane normal. Nose: Nose normal. Eyes: Extraocular Movements: Extraocular movements intact. Conjunctiva/sclera: Conjunctivae normal. Pupils: Pupils are equal, round, and reactive to light. Cardiovascular: Rate and Rhythm: Normal rate and regular rhythm. Heart sounds: Normal heart sounds. Pulmonary: Effort: Pulmonary effort is normal. Breath sounds: Normal breath sounds. Musculoskeletal: Cervical back: Normal range of motion and neck supple. Skin: Capillary Refill: Capillary refill takes less than 2 seconds. Comments: Left Arm: Tenderness to forearm, along vein where she had an IV 2 weeks ago Neurological: Mental Status: She is alert and oriented to person, place, and time. ASSESSMENT AND PLAN: Assessment/Plan Diagnoses and all orders for this visit: Left arm pain - Vascular US upper extremity venous duplex left; Future Obtain US to rule out underlying cause. Recurrent UTI She is feeling better, she has a follow up with her OB next week. No follow-ups on file. documented in this encounter [facility] 08-13-2024 History of Presen t illness Narrative Reason for Appointment: Patient ID: Becca Stafford is a 24 y.o. female who presents for Routine Visit Patient presents today for Return OB appointment. MEDICATIONS Current Outpatient Medications Medication Instructions cephalexin (KEFLEX) 250 mg, 4 times daily fluticasone (Flonase) 50 MCG/ACT nasal spray 2 sprays, Each Nostril, 2 times daily, Shake gently. Before first use, prime pump. After use, clean tip and replace cap. omeprazole (PRILOSEC) 20 mg, Oral, Nightly, Do not crush or chew. ondansetron (ZOFRAN) 4 mg, Oral, Every 6 hours PRN, Take 1 tablet by mouth every 6 hours as needed for nausea. ondansetron ODT (ZOFRAN-ODT) 4 mg ALLERGIES No Known Allergies PROBLEMS Active Ambulatory Problems Diagnosis Date Noted Acute vaginitis 06/12/2023 Anxiety 06/12/2023 Body mass index (BMI) of 19.0-19.9 in adult 06/12/2023 Childhood eating disorder ([facility]) 06/12/2023 Depressive disorder ([facility]) 06/07/2018 Disorder of refraction and accommodation 02/11/2014 Dysmenorrhea 06/12/2023 Menorrhagia with regular cycle 06/12/2023 Myopia 01/07/2015 Overactive bladder 09/15/2016 Overdose of antipsychotic, intentional self-harm, initial encounter ([facility]) 06/06/2018 Pharyngitis 06/12/2023 Tonsillitis 06/12/2023 Recurrent UTI 09/15/2016 Sore throat 06/12/2023 Viral gastritis 06/12/2023 Viral gastroenteritis 06/12/2023 Resolved Ambulatory Problems Diagnosis Date Noted No Resolved Ambulatory Problems Past Medical History: Diagnosis Date Headache Heartburn in Labia irritation HISTORY PAST MEDICAL HISTORY SOCIAL HISTORY Past Medical History: Diagnosis Date Headache Heartburn in Labia irritation Social History Tobacco Use Smoking status: Former Current packs/day: 0.00 Types: Cigarettes Smokeless tobacco: Never Vaping Use Vaping status: Every Day Substances: Nicotine, Flavoring Devices: Disposable Substance Use Topics Alcohol use: Not Currently Alcohol/week: 1.0 standard drink of alcohol Drug use: Never FAMILY HISTORY No family history on file. SURGICAL HISTORY No past surgical history on file. REVIEW OF SYSTEMS Review of Systems: Review of Systems Constitutional: Negative. HENT: Negative. Eyes: Negative. Respiratory: Negative. Cardiovascular: Negative. Gastrointestinal: Negative. Genitourinary: Negative. Musculoskeletal: Negative. Skin: Negative. Neurological: Negative. All other systems reviewed and are negative. Hematological: Negative. Endocrine: Negative. Allergic/Immunologic: Negative. OBJECTIVE Objective: Physical Exam Constitutional: Appearance: Normal appearance. She is normal weight. HENT: Head: Normocephalic. Cardiovascular: Rate and Rhythm: Normal rate. Pulses: Normal pulses. Pulmonary: Effort: Pulmonary effort is normal. Breath sounds: Normal breath sounds. Abdominal: Palpations: Abdomen is soft. Musculoskeletal: General: Normal range of motion. Neurological: General: No focal deficit present. Mental Status: She is alert and oriented to person, place, and time. Psychiatric: Mood and Affect: Mood normal. Behavior: Behavior normal. Thought Content: Thought content normal. Judgment: Judgment normal. Vitals and nursing note reviewed. Vitals: Estimated body mass index is 22.68 kg/m as calculated from the following: Height as of 24: 5' 2 . Weight as of this encounter: 124 lb. BP: 110/68 No LMP recorded (lmp unknown). Patient is . ASSESSMENT & PLAN ICD-10-CM 1. Third trimester Z34.93 POCT urinalysis dipstick manually resulted 2. 30 weeks gestation of Z3A.30 3. Diabetes mellitus screening Z13.1 CBC Glucose tolerance, 1 hour Return OB: Patient presents today for a routine obstetrics appointment. Patient is currently 30w3d . Patient states she is doing well but has complaints of being tired due to current . Patient has verbalizes frequent movement. labor precautions was discussed/given and patient was instructed to perform kick counts three times a day. Pt currently being treated for kidney infection. Patient labs and notes from er visit with transfer to [place] reviewed. Pt was sent for mri for r/o appy and was found to have pyelonephritis, no drainage required and pt taking keflex, qid. She is to schedule follow up in next couple weeks. Pt feels better at this time and will call if symptoms change or worsen Orders Placed This Encounter Procedures CBC Glucose tolerance, 1 hour POCT urinalysis dipstick manually resulted Follow Up: Patient is to return to office in 2 week for routine OB appointment. Documented by Cheryl Galvan MA on behalf of: HAMLET Underwood documented in this encounter [facility] 08-08-2024 Miscellaneous Notes Formattin g of this note might be different from the original. Needs renal ultrasound, labs, and follow up with me in 1 month documented in this encounter [facility] 08-08-2024 Telephone encount er Note Needs renal ultrasound, labs, and follow up with me in 1 month [facility] 08-08-2024 History of Presen t illness Narrative Images from the original note were not included. Becca Stafford is a 24 y.o. female presents with chief complaint of Hospital Follow-up HPI: HPI History of Present Illness The patient presents for evaluation of pyelonephritis. She was previously admitted to the hospital for pyelonephritis, where she received intravenous antibiotics for several days. Currently, she is on Keflex and has an appointment with Renata Cordova on Monday. She has been advised to continue antibiotics throughout her to prevent urinary tract infections (UTIs). She is 29 weeks and 5 days . She has a history of recurrent UTIs, which often go unnoticed until they become severe. Despite this, her urine tests usually return clear results. During her last , she was hospitalized for a severe UTI and was treated with intravenous antibiotics. She also had bacterial vaginosis (BV) infections during that time. However, she has not experienced any UTIs during her current . She reports feeling well overall, with no severe pain unless she walks or stands for extended periods. She experiences constant fatigue, which she attributes to her and infection. She is diligent about taking her antibiotics every 6 hours and wakes up frequently at night to urinate. MEDICATIONS: Current Outpatient Medications Medication Instructions cephalexin (KEFLEX) 250 mg, 4 times daily fluticasone (Flonase) 50 MCG/ACT nasal spray 2 sprays, Each Nostril, 2 times daily, Shake gently. Before first use, prime pump. After use, clean tip and replace cap. omeprazole (PRILOSEC) 20 mg, Oral, Nightly, Do not crush or chew. ondansetron (ZOFRAN) 4 mg, Oral, Every 6 hours PRN, Take 1 tablet by mouth every 6 hours as needed for nausea. ondansetron ODT (ZOFRAN-ODT) 4 mg I have reviewed and reconciled the history and medication list with the patient today. REVIEW OF SYMPTOMS: Review of Systems Constitutional: Negative. HENT: Negative. Respiratory: Negative for cough, shortness of breath and wheezing. Cardiovascular: Negative for chest pain. Gastrointestinal: Negative for abdominal pain. Genitourinary: Negative. Musculoskeletal: Negative. Skin: Negative. Neurological: Negative. OBJECTIVE: Visit Vitals BP 110/72 Pulse (!) 115 Ht 5' 2 Wt 123 lb 12.8 oz LMP (LMP Unknown) SpO2 99% BMI 22.64 kg/m OB Status Smoking Status Former BSA 1.57 m Physical Exam Vitals and nursing note reviewed. Constitutional: Appearance: Normal appearance. HENT: Head: Normocephalic and atraumatic. Right Ear: Tympanic membrane normal. Left Ear: Tympanic membrane normal. Nose: Nose normal. Eyes: Extraocular Movements: Extraocular movements intact. Conjunctiva/sclera: Conjunctivae normal. Pupils: Pupils are equal, round, and reactive to light. Cardiovascular: Rate and Rhythm: Normal rate and regular rhythm. Heart sounds: Normal heart sounds. Pulmonary: Effort: Pulmonary effort is normal. Breath sounds: Normal breath sounds. Abdominal: General: Bowel sounds are normal. There is no distension. Palpations: Abdomen is soft. Tenderness: There is abdominal tenderness. There is no right CVA tenderness or left CVA tenderness. Musculoskeletal: Cervical back: Normal range of motion and neck supple. Skin: General: Skin is warm and dry. Neurological: Mental Status: She is alert and oriented to person, place, and time. ASSESSMENT AND PLAN: Assessment/Plan Diagnoses and all orders for this visit: Pyelonephritis affecting in third trimester Encouraged to continue and finish off entire course of antibiotics. She does have a follow up with obgyn on Monday and was instructed to discuss daily antibiotics with them then. Recurrent UTI documented in this encounter [facility] 07-29-2024 History of Presen t illness Narrative Reason for Appointment: Patient ID: Becca Stafford is a 24 y.o. female who presents for Routine Visit Patient presents today for Return OB appointment. Current Medications: has a current medication list which includes the following prescription(s): aspirin, omeprazole, and ondansetron. Medical History: Active Ambulatory Problems Diagnosis Date Noted Acute vaginitis 06/12/2023 Anxiety 06/12/2023 Body mass index (BMI) of 19.0-19.9 in adult 06/12/2023 Childhood eating disorder ([facility]) 06/12/2023 Depressive disorder ([facility]) 06/07/2018 Disorder of refraction and accommodation 02/11/2014 Dysmenorrhea 06/12/2023 Menorrhagia with regular cycle 06/12/2023 Myopia 01/07/2015 Overactive bladder 09/15/2016 Overdose of antipsychotic, intentional self-harm, initial encounter ([facility]) 06/06/2018 Pharyngitis 06/12/2023 Tonsillitis 06/12/2023 Recurrent UTI 09/15/2016 Sore throat 06/12/2023 Viral gastritis 06/12/2023 Viral gastroenteritis 06/12/2023 Right lower quadrant abdominal pain affecting 08/04/2024 Resolved Ambulatory Problems Diagnosis Date Noted No Resolved Ambulatory Problems Past Medical History: Diagnosis Date Headache Heartburn in [place]ia irritation No family history on file. Social History Tobacco Use Smoking status: Former Current packs/day: 0.00 Types: Cigarettes Smokeless tobacco: Never Vaping Use Vaping status: Every Day Substances: Nicotine, Flavoring Devices: Disposable Substance Use Topics Alcohol use: Not Currently Alcohol/week: 1.0 standard drink of alcohol Types: 1 Standard drinks or equivalent per week Comment: Caffine: 1 cup daily Drug use: Never History reviewed. No pertinent surgical history. No Known Allergies Review of Systems: Review of Systems Constitutional: Negative. HENT: Negative. Eyes: Negative. Respiratory: Negative. Cardiovascular: Negative. Gastrointestinal: Negative. Genitourinary: Negative. Musculoskeletal: Negative. Skin: Negative. Neurological: Negative. All other systems reviewed and are negative. Hematological: Negative. Endocrine: Negative. Allergic/Immunologic: Negative. Objective Physical Exam Constitutional: Appearance: Normal appearance. She is well-developed. Cardiovascular: Rate and Rhythm: Normal rate and [...] nursing note reviewed. Exam conducted with a software engineer advisor present. Vitals: Estimated body mass index is 22.5 kg/m as calculated from the following: Height as of 06/12/23: 5' 2 . Weight as of this encounter: 123 lb. BP: 110/70 No LMP recorded (lmp unknown). Patient is . Assessment/Plan Encounter Diagnosis: ICD-10-CM 1. Third trimester Z34.93 POCT urinalysis dipstick manually resulted 2. 28 weeks gestation of Z3A.28 3. Allergy, initial encounter T78.40XA DISCONTINUED: fluticasone (Flonase) 50 MCG/ACT nasal spray 4. size inconsistent with dates O26.849 US OB SCAN FOR GROWTH Return OB: Patient presents today for a routine obstetrics appointment. Patient is currently 32w1d . Patient states she is doing well but has complaints of being tired due to current . Patient has verbalizes frequent movement. labor precautions was discussed/given and patient was instructed to perform kick counts three times a day. Orders Placed This Encounter Procedures US OB SCAN FOR GROWTH POCT urinalysis dipstick manually resulted Follow Up: Patient is to return to office in 2 week for routine OB appointment. Documented by Nasir Harding DO on behalf of: Nasir Harding DO documented in this encounter [facility] 07-03-2024 History of Presen t illness Narrative Reason for Appointment: Patient ID: Becca Stafford is a 24 y.o. female who presents [...] 19.0-19.9 in adult 06/12/2023 Childhood eating disorder ([facility]) 06/12/2023 Depressive disorder ([facility]) 06/07/2018 Disorder of refraction and accommodation 02/11/2014 Dysmenorrhea 06/12/2023 Menorrhagia with regular cycle 06/12/2023 Myopia 01/07/2015 Overactive bladder 09/15/2016 Overdose of antipsychotic, intentional self-harm, initial encounter ([facility]) 06/06/2018 Pharyngitis 06/12/2023 Tonsillitis 06/12/2023 Recurrent UTI [...] nursing note reviewed. Exam conducted with a software engineer advisor present. Vitals: Estimated body mass index is 21.95 kg/m as calculated from the following: Height as of 23: 5' 2 . Weight as of this [...] of: HAMLET Underwood documented in this encounter [facility] 07-20-2023 Evaluation note Encounter Date Diagnosis Assessment [...] and subcutaneous tissue, unspecified (ICD-10 - L08.9) [employer] Other 10-16-2023 Evaluation note* Encounter Date [...] of candidiasis of vagina (ICD-10 - Z86.19) [employer] Other 12-28-2022 Hospital Discharge instructions Patient Education 09/27/2022 23:49:20 Upper Respiratory Infection, Adult, Xlxm-fp-Ktwc Upper Respiratory Infection, Adult An upper respiratory [...] and other clear broths. General instructions Take iauh-ybx-aftfvop and prescription medicines only as told by [...] not have soap and water, use hand patient admitting clerk. Avoid touching your mouth, face, eyes, or [...] get better within 7 10 days. Take rums-gto-uhvvqck and prescription medicines only as told by your doctor. This information is not intended to replace advice given to you by your health care provider. Make sure you discuss any questions you have with your health care provider. Document Released: 03/06/2009 Document Revised: 09/26/2019 Document Reviewed: 05/11/2018 Mobile Card Patient Education [employer]. 09/27/2022 23:49:20 Cough, Adult, Prpe-dv-Xsyv Cough, Adult A cough helps to clear [...] Follow these instructions at home: Medicines Take vrba-kfx-cvkkuvb and prescription medicines only as told by [...] Many things can cause a cough. Take sijs-ayc-mmgnxgk and prescription medicines only as told by [...] 05/31/2012 Document Revised: 10/07/2019 Document Reviewed: 10/07/2019 Mobile Card Patient Education 2020 [employer]. Follow Up Care 09/27/2022 22:50:28 With:Fatoumata Oneill Address:Unknown When:09/30/2022 Comments:Follow-up with your primary care provider in 3 to 5 days. If symptoms worsen, do not improve, or new symptoms arise please report back to emergency department for further evaluation. [facility]12[facility] Evaluation + Plan noteExtracted from: Title:ED Note Author:Rober Wang PA-C te:09/27/22 Constipation (K59.00: Consti pation, unspecified) Upper respiratory infection, viral (J06.9: Acute upper respiratory infection, unspecified) Orders: polyethylene glycol 3350, 17 gm, Oral, Daily, # 12 EA, Refills(s) 0, Pharmacy: [facility]/pharmacy #[id number], 157.5, cm, 09/27/22 22:57:00 EST, Height/Length Dosing, 51.3, kg, 09/27/22 22:57:00 EST, Weight Dosing Group A Strep by PCR Rapid Strep w/rfx Diagnostic Tests Pending * Group A Strep by PCR 09/27/22 [facility]07-14-2021 Evaluation + Plan note Future Scheduled Tests Laboratory* Rapid Strep w/rfx [facility]21 [facility] information available [facility] Work Phone: Evaluation noteNo [employer] Other evaluation note* Diagnosis Diabetes mellitus screening Screening for diabetes mellitus Well woman exam with routine gynecological exam Routine gynecological examination Heartburn during in second trimester documented in this encounter [facility] HealthcareEvaluation note* Diagnosis 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 [facility] Diagnosis Pyelonephritis affecting in third trimester- Primary Recurrent UTI Urinary tract infection, site not specified documented in this encounter [facility] HealthcareEvaluation note* Diagnosis Left arm pain- Primary Pain in soft tissues of limb Recurrent UTI Urinary tract infection, site not specified documented in this encounter [facility] note* Diagnosis Third trimester state, incidental 30 weeks gestation of Diabetes mellitus screening Screening for diabetes mellitus documented in this encounter [facility] note* Diagnosis Third trimester state, incidental 28 weeks gestation of Allergy, initial encounter size inconsistent with dates documented in this encounter [facility] note* Diagnosis Upper respiratory infection, acute- Primary Third trimester state, incidental 32 weeks gestation of Sinusitis, unspecified chronicity, unspecified location Anemia, unspecified type documented in this encounter [facility] HealthcareHospital course Narrative No data available for this section [facility] No data available for this section [facility] on filedocumented in this encounter [facility] No data available for this section [facility] Summary Purpose Family History No Family History Records FoundNo Family History Records FoundNo Family History Records FoundNo Family History Records FoundNo Family History Records FoundNo Family History Records FoundNo Family History Records FoundNo Family History Records FoundNo Family History Records Found Advance Directives No Advanced Directives Records Found Date Activated Date Inactivated Comments 08/04/2024 12:24 AM 08/05/2024 6:42 PM Additional Source Comments INFORMATION SOURCE (unrecogn ized section and content) DATE CREATED AUTHOR 07/16/2018 [facility] DATE CREATED AUTHOR AUTHOR'S ORGANIZ ATION 11/22/2019 [facility] DATE CREATED AUTHOR AUTHOR'S ORGANIZ ATION 12/30/2022 [facility] DATE CREATED AUTHOR AUTHOR'S ORGANIZ ATION 07/25/2023 [facility] DATE CREATED AUTHOR AUTHOR'S ORGANIZ ATION 10/01/2023 [facility] DATE CREATED AUTHOR AUTHOR'S ORGANIZ ATION 03/14/2024 [facility] DATE CREATED AUTHOR AUTHOR'S ORGANIZ ATION 08/07/2024 [facility] DATE CREATED AUTHOR AUTHOR'S ORGANIZ ATION 08/27/2024 [facility] DATE CREATED AUTHOR AUTHOR'S ORGANIZ ATION 08/29/2024 [facility] Patient Care team informatio n (unrecognized section and content) Team Status: Inactive Member Role Status Dates Mel Tomlinson , OUTBOUND SALES AGENT-C Attending Provider Active Cephalometric Technician Relationship Specialty Start Date End Date Jesusita Torrez MD [address] [place] [address] PCP - General Family Medicine 03/13/24 Cephalometric Technician Relationship Specialty Start Date End Date Jesusita Torrez MD [address] [place] [address] PCP - General Family Medicine 03/13/24 Cephalometric Technician Relationship Specialty Start Date End Date Jesusita Torrez MD [address] [place] [address] PCP - General Family Medicine 03/13/24 Cephalometric Technician Relationship Specialty Start Date End Date No Pcp, [place] [address] PCP - General Family Medicine 11/26/23 Cephalometric Technician Relationship Specialty Start Date End Date Jesusita Torrez MD [address] [place] [address] PCP - General Family Medicine 03/13/24 Cephalometric Technician Relationship Specialty Start Date End Date Jesusita Torrez MD [address] [facility] [place] [address] PCP - General Family Medicine 03/13/24 Cephalometric Technician Relationship Specialty Start Date End Date Jesusita Torrez MD [address] [facility] [place] [address] PCP - General Family Medicine 03/13/24 Cephalometric Technician Relationship Specialty Start Date End Date Jesusita Torrez MD [address] [facility] [place] [address] PCP - General Family Medicine 03/13/24 Cephalometric Technician Relationship Specialty Start Date End Date Jesusita Torrez MD [address] [facility] [place] [address] PCP - General Family Medicine 03/13/24 Cephalometric Technician Relationship Specialty Start Date End Date Jesusita Torrez MD [address] [facility] [place] [address] PCP - General Family Medicine 03/13/24 Cephalometric Technician Relationship Specialty Start Date End Date Jesusita Torrez MD [address] [facility] [place] [address] PCP - General Family Medicine 03/13/24 Cephalometric Technician Relationship Specialty Start Date End Date Jesusita Torrez MD [address] [facility] [place] [address] PCP - General Family Medicine 03/13/24 Goals (unrecognized section and content) Goals may be documented in a n alternate section REASON FOR VISIT (unrecogniz ed section and content) Reason Comments Hospital Follow-up Reason Comments Establish Care Reason Comments Routine Visit FOR RECORDS PERTAINING TO PATIENTS WHO ARE [...] BE BASED ON THE PRIMARY CLINICAL RECORDS. [facility] [employer] [facility]. provides no warranty or guarantee of the accuracy or completeness of information in this document.
== END 2024-09-19 14:46 | disposition home or self-care (01) ==
LOC: NOMS 14:45
PROVIDERS: Visit Provider Obstetrics & Gynecology
DX: O26.843 Uterine size-date discrepancy, third trimester (principal); Z3A.32 32 weeks gestation of pregnancy
CPT/HCPCS: 76816

== ENCOUNTER 2024-09-26 16:59 | Outpatient (REF) | payer OTHER, SELFPAY ==
--- OUTSIDE RECORDS SUMMARY | 2024-09-26 17:02 | XMS_ITS | CCD ---
Author Organization [facility] Care Team Providers Care Flare Stitcher Name Role Phone OKSANAMAIRA ECHEVARRIA Unavailable Unavailable TOBY, ROSE MARY Unavailable Unavailable TOBY, ROSE MARY Unavailable Unavailable SONDIKE, CONOR B Unavailable Unavailable SONDIKE, CONOR B Unavailable Unavailable TOBY, ROSE MARY Unavailable Unavailable HISSETT, JOON Unavailable Unavailable TOBY, ROSE MARY Unavailable Unavailable NORIEGAJOSE LUIS DAVIS Unavailable Unavailable NOAH MCCALLUM Unavailable Unavailable NEILANMAIDA Unavailable Unavailable TOBY, Rose Mary A Primary Care Physician [phone] Fatoumata Oneill Primary Care Physician [phone] MEHDI ., DR SOLIS Attending Unavailable MEHDI [...] ., DR SOLIS Admitting Unavailable MISC, DR CONREJO Primary Care Unavailable VINEET ., RENATA Admitting [...] Attending Unavailable DEBBIE ROJAS Consulting Unavailable MAHAD OLIVEORS Consulting Unavailable MISC, DR CORNEJO Primary Care [...] Unavailable MEHDI ., DR SOLIS Attending Unavailable OKLEE, DR LEE Arceo Consulting Unavailable MEHDI ., DR SOLIS Admitting Unavailable MEHDI ., DR SOLIS Consulting Unavailable MEHDI ., DR SOLIS Attending Unavailable MEHDI ., DR SOLIS Consulting Unavailable MEHDI ., DR SOLIS Admitting Unavailable ALINE Tomlinson Attending Provider [phone] Mel Tomlinson Unavailable Augusto Brewer Unavailable Mel [...] Pcp, No Pcp Primary Care Provider Unavailabl e NO PCP, NO PCP Primary Care Unavailable NASIR HARDING Attending Unavailable RENATA MANLEY Attending Unavailable NASIR HARDING Attending Unavailable VIRGINIA ROYAL Attending Unavailab RENATA Noonan Attending Unavailable VIRGINIA ROYLA Attending Unavailab VIRGINIA Espinoza Referring Unavailab RENATA Noonan Attending Unavailable RENATA MANLEY Attending Unavailable Medications Current Medications Medication Drug Class(es) Dates Sig (Normalized) Sig (Original) [id number] 200 actuat albuterol 0.09 mg/actuat metered dose inhaler (8 sources) beta2-Adrenergic Agonist Start: 08-26-2024 End: 08-26-2025 [...] Days Not-Taking aspirin 325 mg oral tablet (9 sources) Platelet Aggregation Inhibitor, Nonsteroidal Anti-inflammatory Drug Start: 08-20-2024 End: 08-20-2025 take 1 tablet by mouth once daily aspirin 325 MG tablet Indications: Superficial phlebitis of arm Take 1 tablet (325 mg) by mouth Daily 30 tablet 08/20/2024 08/20/2025 Active azithromycin 250 mg oral tablet (11 sources) Macrolide Antimicrobial Start: 08-26-2024 End: 09-19-2024 azithromycin (Zithromax Z-Kermit) 250 MG tablet Indications: Sinusitis, unspecified chronicity, unspecified location As directed 6 tablet 08/26/2024 09/19/2024 Discontinued Azithromycin 250 MG Oral for 3 Days Not-Taking fluconazole 150 mg oral tablet (4 sources) Azole Antifungal Start: 07-17-2023 Diflucan 150 MG 1 tablet Orally once for 2 days Take the first tablet at the first onset of vaginal itching, take the second tablet 3 days later Jul, Active hydrocortisone 10 mg/ml / neomycin 3.5 mg/ml / polymyxin b 17409 unt/ml otic suspension (4 sources) Aminoglycoside Antibacterial, Polymyxin-class Antibacterial, Corticosteroid Start: 07-17-2023 Guprwhtj-Ojtetggzo-UF 3.5-83823-7 3 drops right ear Three times a day for 7 days Jul, Active methylPREDNISolone (5 sources) Corticosteroid Start: 08-26-2024 End: 09-19-2024 methylPREDNISolone (Medrol Dospak) 4 MG tablets Indications: Upper respiratory infection, acute Day 1: 6 tablets Day 2: 5 tablets Day 3: 4 tablets Day 4: 3 tablets Day 5: 2 tablets Day 6: 1 tablet 21 tablet 08/26/2024 09/19/2024 Discontinued Start: 08-26-2024 methylPREDNISo lone (Medrol Dospak) 4 MG tablets Indications: Upper respiratory infection, acute Day 1: 6 tablets Day 2: 5 tablets Day 3: 4 tablets Day 4: 3 tablets Day 5: 2 tablets Day 6: 1 tablet 21 tablet 08/26/2024 Active omeprazole 20 mg delayed release oral capsule (20 sources) Proton Pump Inhibitor Start: 07-03-2024 End: 07-03-2025 take 1 capsule by mouth once at bedtime omeprazole (PriLOSEC) [address] capsule Indications: Heartburn during in second trimester Take 1 capsule (20 mg) by mouth at bedtime Do not crush or chew. 30 capsule 3 09/04/2024 01/02/2025 Active ondansetron 4 mg oral tablet (20 sources) Serotonin-3 Receptor Antagonist Start: 09-04-2024 take 1 tablet by mouth every six hours as needed for nausea and vomiting and nausea and nausea ondansetron (Zofran) 4 MG tablet Indications: Nausea Take 1 tablet (4 mg) by mouth every 6 (six) hours if needed for nausea or vomiting for up to 120 doses Take 1 tablet by mouth every 6 hours as needed for nausea. 30 tablet 3 09/04/2024 Active Start: 05-09-2024 take 1 tablet by sri th every six hours as needed for nausea [...] for 2 Days Not-Taking polyethylene glycol 3350 01802 mg powder for oral solution (5 sources) Osmotic Laxative Start: 09-27-2022 take 17 g by mouth once daily Miralax 3350 17 gram packet 17 gm, Oral, Daily, # 12 EA, Refills(s) 0, Pharmacy: 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: 06-12-2023 02-12-2019 Chronic Genitourinary congenital anomalies (1 source) Congenital hydronephrosis; 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] 08-08-2024 Chronic Genitourinary symptoms and ill-defined conditions (5 sources) Personal history of urinary (tract) infections; [...] second trimester] 07-03-2024 Episodic Other complications of (18 sources) Right lower quadrant pain; Translations: [Other [...] [Overactive bladder] Onset: 09-15-2016 06-12-2023 Chronic Other diseases of kidney and ureters (7 sources) Hydronephrosis; Translations: [Other hydronephrosis] Onset: 09-19-2024 09-19-2024 Episodic Other ear and sense organ disorders (2 [...] Sinusitis; Translations: [Chronic sinusitis, unspecified] 08-26-2024 Chronic Otitis media and related conditions (2 sources) [...] unspecified; Translations: [Pain, unspecified] Onset: 08-04-2024 Episodic Residual codes; unclassified (7 sources) Gestation period, 35 weeks; Translations: [35 weeks gestation of ] Onset: 09-19-2024 09-19-2024 Episodic Residual codes; unclassified (4 sources) Gestation period, 36 weeks; Translations: [36 weeks gestation of ] Onset: 09-26-2024 09-26-2024 Episodic Short gestation; low weight; and growth retardation (9 sources) Jbflg-thy-ijyal baby; Translations: [[place] small for gestational age, unspecified weight] Onset: 09-19-2024 09-19-2024 Episodic Skin and subcutaneous tissue infections (1 [...] applicable or unspecified; Translations: [MAT CARE OTH MD FTL GRTH 3RD TM UNS] Onset: 08-08-2022 [...] 06-12-2023 2021 Episodic Other upper respiratory infections (20 sources) Pharyngitis; [...] Range Facility Urinalysis macro (dipstick) panel (U)on 09-26-2024 Bilirubin, UA Negative Negative - 4(70) +++ mg/dL [facility] Blood, UA Negative Negative - 50 Jd/mcL [facility] Clarity, UA Clear [facility] Color, UA Yellow [facility] Glucose, UA Negative Negative - 1999(110) ++++ mg/dL [facility] Interpretation and review of laboratory results Abnormal [facility] Ketones, UA Negative Negative - 160(16) ++++ mg/dL [facility] Leukocytes, UA Few Negative - 500+++ Mookie/mcL [facility] Comment on above: small Nitrite, UA Negative Negative - Positive [facility] pH, UA 6.5 5 - 9 [facility] Protein, UA Negative Negative - 1999(20) ++++ mg/dL [facility] Spec Grav, UA 1.015 1 - 1.03 [facility] Urobilinogen, UA 0.2 0.2 - 12 mg/dL [facility] Urinalysis macro (dipstick) panel (U)on 09-19-2024 Bilirubin, UA Negative Negative - 4(70) +++ mg/dL [facility] Blood, UA Negative Negative - 50 Jd/mcL [facility] Clarity, UA Clear [facility] re Color, UA Yellow [facility] Glucose, UA Negative Negative - 1999(110) ++++ mg/dL [facility] Interpretation and review of laboratory results Abnormal [facility] Ketones, UA Negative Negative - 160(16) ++++ mg/dL [facility] Leukocytes, UA Positive Negative - 500+++ Mookie/mcL [facility] Comment on above: small Nitrite, UA Negative Negative - Positive [facility] pH, UA 6.5 5 - 9 [facility] Protein, UA Negative Negative - 1999(20) ++++ mg/dL [facility] Spec Grav, UA 1.025 1 - 1.03 [facility] Urobilinogen, UA 0.2 0.2 - 12 mg/dL [facility] macro (dipstick) panel (U)on 08-26-2024 Bilirubin, UA Negative Negative - 4(70) +++ mg/dL [facility] Blood, UA Negative Negative - 50 Jd/mcL [facility] Healthcare Clarity, UA Clear [facility] Color, UA Yellow [facility] Glucose, UA Negative Negative - 1999(110) ++++ mg/dL [facility] Interpretation and review of laboratory results Normal [facility] Ketones, UA Negative Negative - 160(16) ++++ mg/dL [facility] Leukocytes, UA Negative Negative - 500+++ Mookie/mcL [facility] Nitrite, UA Negative Negative - Positive [facility] pH, UA 7 5 - 9 [facility] Protein, UA Negative Negative - 1999(20) ++++ mg/dL [facility] Spec Grav, UA 1.02 1 - 1.03 [facility] Urobilinogen, UA 0.2 0.2 - 12 mg/dL [facility] VASC US UPPER EXTREMITY VENO US DUPLEX LEFTon 08-20-2024 VAS US UPPER EXTREMITY VENOUS DUPLEX LEFT Exam: VAS US UPPER EXTREMITY VENOUS DUPLEX LEFT Clinical [...] UA Negative Negative - 4(70) +++ mg/dL [facility] Blood, UA Negative Negative - 50 Jd/mcL [facility] Clarity, UA Clear [facility] Color, UA Yellow [facility] Glucose, UA Negative Negative - 1999(110) ++++ mg/dL [facility] Interpretation and review of laboratory results Abnormal [facility] Ketones, UA Negative Negative - 160(16) ++++ mg/dL [facility] Leukocytes, UA Trace Negative - 500+++ Mookie/mcL [facility] Nitrite, UA Negative Negative - Positive [facility] pH, UA 7 5 - 9 [facility] e Protein, UA Negative Negative - 1999(20) ++++ mg/dL [facility] Spec Grav, UA 1.02 1 - 1.03 [facility] Urobilinogen, UA 0.2 0.2 - 12 mg/dL [facility] BASIC METABOLIC PANLon 08-05 Anion gap [Moles/Vol] 6 mmol/L Normal 5-15 [facility] Comment on above: Performed By: #### C MP, CBCA, 2276-4, 2284-8, 2131-9, 22486-4 #### [facility] ([id number]) [address], [address] [place] [address] Calcium [Mass/Vol] 8.6 mg/dL Normal 8.5-10.5 [facility] Comment on above: Performed By: #### C MP, CBCA, 2276-4, 2284-8, 2131-9, 46142-1 #### [facility] ([id number]) [address], [address] [place] [address] Chloride [Moles/Vol] 108 mmol/L Normal 98-109 [facility] Comment on above: Performed By: #### C MP, CBCA, 2276-4, 2284-8, 2131-9, 80112-3 #### [facility] ([id number]) [address], [address] [place] [address] CO2 [Moles/Vol] 24 mmol/L Normal 22-32 [facility] Comment on above: Performed By: #### C MP, CBCA, 2276-4, 2284-8, 2132-9, 22188-2 #### [facility] ([id number]) [address], [address] [place] [address] Creatinine [Mass/Vol] 0.52 mg/dL Normal 0.40-1.00 [facility] Comment on above: Result Comment: METH OD TRACEABLE TO IDMS STANDARD Performed By: #### C MP, CBCA, 2276-4, 2284-8, 2131-9, 08727-7 #### [facility] ([id number]) [address], [facility] [address] [place] [address] eGFR (CKD-EPI) NON-RACE DEPENDENT >90 Normal >59 [facility] Comment on above: Result Comment: Reported eGFR is based on the CKD-EPI 2020 equation that does not use a race coefficient. Performed By: #### C MP, CBCA, 2276-4, 2284-8, 2131-9, 93382-6 #### [facility] ([id number]) [address], [facility] [address] [place] [address] Glucose [Mass/Vol] 81 mg/dL Normal 65-99 [facility] Comment on above: Performed By: #### C MP, CBCA, 2276-4, 2284-8, 2131-9, 47351-6 #### [facility] ([id number]) [address], [facility] [address] [place] [address] Potassium [Moles/Vol] 3.8 mmol/L Normal 3.5-5.0 [facility] Comment on above: Performed By: #### C MP, CBCA, 2276-4, 2284-8, 2131-9, 30679-8 #### [facility] ([id number]) [address] [place] [address] Sodium [Moles/Vol] 138 mmol/L Normal 134-146 [facility] Comment on above: Performed By: #### C MP, CBCA, 2276-4, 2284-8, 2131-9, 09635-1 #### [facility] ([id number]) [address] [address] [place] [address] Urea nitrogen [Mass/Vol] 9 mg/dL Normal 5-23 [facility] Comment on above: Performed By: #### C MP, CBCA, 2276-4, 2284-8, 2131-9, 44494-5 #### [facility] ([id number]) [address], [address] [place] [address] CBC AND AUTO DIFFon 08-05-20 24 ABSOLUTE BASOPHIL 0.0 X10E9/L Normal 0.0-0.2 [facility] Comment on above: Performed By: #### C MP, CBCA, 2276-4, 2284-8, 9, 85884-8 #### [facility] ([id number]) [address], [address] [place] [address] ABSOLUTE NEUTROPHIL 5.0 X10E9/L Normal 1.5-6.6 [facility] Comment on above: Performed By: #### C MP, CBCA, 6-4, 2283-8, 9, 18310-1 #### [facility] ([id number]) [address], [address] [place] [address] Basophils/100 WBC (Bld) 0.2 % Normal [facility] Comment on above: Performed By: #### C MP, CBCA, 6-4, 2283-8, 2132-06, 89686-1 #### [facility] ([id number]) [address], [address] [place] [address] Eosinophils (Bld) [#/Vol] 0.1 10*3/uL Normal 0.0-0.4 [facility] Comment on above: Performed By: #### C MP, CBCA, 2276-4, 2284-8, 2131-9, 36649-4 #### [facility] ([id number]) [address], [address] [place] [address] Eosinophils/100 WBC (Bld) 1.1 % Normal [facility] Comment on above: Performed By: #### C MP, CBCA, 2276-4, 2284-8, 2132-06, 62445-9 #### [facility] ([id number]) [address], [address] [place] [address] Erythrocyte distribution width (RBC) [Ratio] 13.4 % Normal 11.5-15.0 [facility] Comment on above: Performed By: #### C MP, CBCA, 2276-4, 2284-8, 9, 66379-5 #### [facility] ([id number]) [address], [address] [place] [address] Hematocrit (Bld) [Volume fraction] 29.5 % Low 35-47 [facility] Comment on above: Performed By: #### C MP, CBCA, 2276-4, 2283-8, 2132-06, 78985-1 #### [facility] ([id number]) [address], [facility] [address] [place] [address] Hemoglobin (Bld) [Mass/Vol] 10.4 g/dL Low 11.7-15.5 [facility] Comment on above: Performed By: #### C MP, CBCA, 2276-4, 2283-8, 2132-06, 04371-0 #### [facility] ([id number]) [address], [facility] [address] [place] [address] Lymphocytes (Bld) [#/Vol] 1.3 10*3/uL Normal 1.0-3.5 [facility] Comment on above: Performed By: #### C MP, CBCA, 2276-4, 2284-8, 2132-06, 31533-2 #### [facility] ([id number]) [address] [address] [place] [address] Lymphocytes/100 WBC (Bld) 17.0 % Normal [facility] Comment on above: Performed By: #### C MP, CBCA, 2276-4, 2284-8, 2132-06, 62913-4 #### [facility] ([id number]) [address], [address] [place] [address] MCH (RBC) [Entitic mass] 30.7 pg Normal 27-34 [facility] Comment on above: Performed By: #### C MP, CBCA, 2276-4, 2284-8, 2131-9, 50418-6 #### [facility] ([id number]) [address], [address] [place] [address] MCHC (RBC) [Mass/Vol] 35.3 g/dL Normal 32-36 [facility] Comment on above: Performed By: #### C MP, CBCA, 6-4, 2283-8, 2132-06, 42137-1 #### [facility] ([id number]) [address], [address] [place] [address] MCV (RBC) [Entitic vol] 87 fL Normal 80-100 [facility] Comment on above: Performed By: #### C MP, CBCA, 2276-4, 2284-8, 2132-06, 96574-2 #### [facility] ([id number]) [address] [address] [place] [address] Monocytes (Bld) [#/Vol] 1.0 10*3/uL High 0-0.9 [facility] Comment on above: Performed By: #### C MP, CBCA, 2276-4, 2284-8, 2132-06, 66612-9 #### [facility] ([id number]) [address] [address] [place] [address] Monocytes/100 WBC (Bld) 13.9 % Normal [facility] Comment on above: Performed By: #### C MP, CBCA, 2276-4, 2284-8, 2131-9, 40828-0 #### [facility] ([id number]) [address], [address] [place] [address] Neutrophils/100 WBC (Bld) 67.8 % Normal [facility] Comment on above: Performed By: #### C MP, CBCA, 2276-4, 2284-8, 2131-9, 17024-0 #### [facility] ([id number]) [address], [facility] [address] [place] [address] Platelet mean volume (Bld) [Entitic vol] 7.7 fL Normal 7-12 [facility] Comment on above: Performed By: #### C MP, CBCA, 2276-4, 2284-8, 2-9, 83149-0 #### [facility] ([id number]) [address] [address] Platelets (Bld) [#/Vol] 179 10*3/uL Normal 150-450 [facility] Comment on above: Performed By: #### C MP, CBCA, 2276-4, 2284-8, 2131-9, 04553-1 #### [facility] ([id number]) [address] [address] RBC COUNT 3.39 X10E12/L Low 3.80-5.20 [facility] Comment on above: Performed By: #### C MP, CBCA, 2276-4, 2284-8, 2-9, 00491-6 #### [facility] ([id number]) [address] [address] WBC (Bld) [#/Vol] 7.4 10*3/uL Normal 4.0-11.0 [facility] Comment on above: Performed By: #### C MP, CBCA, 2276-4, 2284-8, 2-9, 19798-9 #### [facility] ([id number]) [address] [address] CBC AND AUTO DIFFon 08-04-20 24 ABSOLUTE BASOPHIL 0.0 X10E9/L Normal 0.0-0.2 [facility] Comment on above: Performed By: #### C MP, CBCA, 2276-4, 2284-8, 2131-9, 24906-5 #### [facility] ([id number]) [address], [address] [place] [address] ABSOLUTE NEUTROPHIL 8.1 X10E9/L High 1.5-6.6 [facility] Comment on above: Performed By: #### C MP, CBCA, 2276-4, 2284-8, 2131-9, 30492-0 #### [facility] ([id number]) [address], [address] [place] [address] Basophils/100 WBC (Bld) 0.2 % Normal [facility] Comment on above: Performed By: #### C MP, CBCA, 6-4, 2284-8, 2131-9, 87284-4 #### [facility] ([id number]) [address], [address] [place] [address] Eosinophils (Bld) [#/Vol] 0.0 10*3/uL Normal 0.0-0.4 [facility] Comment on above: Performed By: #### C MP, CBCA, 6-4, 2284-8, 2131-9, 26082-0 #### [facility] ([id number]) [address], [address] [place] [address] Eosinophils/100 WBC (Bld) 0.2 % Normal [facility] Comment on above: Performed By: #### C MP, CBCA, 2276-4, 2284-8, 2131-9, 29843-9 #### [facility] ([id number]) [address], [address] [place] [address] Erythrocyte distribution width (RBC) [Ratio] 13.3 % Normal 11.5-15.0 [facility] Comment on above: Performed By: #### C MP, CBCA, 2276-4, 2284-8, 9, 90468-4 #### [facility] ([id number]) [address], [address] [place] [address] Hematocrit (Bld) [Volume fraction] 29.5 % Low 35-47 [facility] Comment on above: Performed By: #### C MP, CBCA, 2276-4, 2284-8, 2132-06, 61714-9 #### [facility] ([id number]) [address] [address] [place] [address] Hemoglobin (Bld) [Mass/Vol] 10.4 g/dL Low 11.7-15.5 [facility] Comment on above: Performed By: #### C MP, CBCA, 6-4, 228-8, 2132-06, 05640-8 #### [facility] ([id number]) [address] [address] [place] [address] Lymphocytes (Bld) [#/Vol] 1.2 10*3/uL Normal 1.0-3.5 [facility] Comment on above: Performed By: #### C MP, CBCA, 2276-4, 228-8, 2132-06, 11749-9 #### [facility] ([id number]) [address] [address] [place] [address] Lymphocytes/100 WBC (Bld) 11.7 % Normal [facility] Comment on above: Performed By: #### C MP, CBCA, 2276-4, 2284-8, 9, 24125-1 #### [facility] ([id number]) [address] [address] [place] [address] MCH (RBC) [Entitic mass] 30.5 pg Normal 27-34 [facility] Comment on above: Performed By: #### C MP, CBCA, 2276-4, 2284-8, 2132-06, 00010-7 #### [facility] ([id number]) [address] [place] [address] MCHC (RBC) [Mass/Vol] 35.4 g/dL Normal 32-36 [facility] Comment on above: Performed By: #### C MP, CBCA, 2276-4, 2284-8, 2131-9, 30788-5 #### [facility] ([id number]) [address], [address] [place] [address] MCV (RBC) [Entitic vol] 86 fL Normal 80-100 [facility] Comment on above: Performed By: #### C MP, CBCA, 6-4, 2284-8, 2132-06, 91449-3 #### [facility] ([id number]) [address], [address] [place] [address] Monocytes (Bld) [#/Vol] 1.0 10*3/uL High 0-0.9 [facility] Comment on above: Performed By: #### C MP, CBCA, 6-4, 2283-8, 2132-06, 90586-2 #### [facility] ([id number]) [address], [address] [place] [address] Monocytes/100 WBC (Bld) 9.2 % Normal [facility] Comment on above: Performed By: #### C MP, CBCA, 2276-4, 2284-8, 9, 41693-4 #### [facility] ([id number]) [address], [address] [place] [address] Neutrophils/100 WBC (Bld) 78.7 % Normal [facility] Comment on above: Performed By: #### C MP, CBCA, 2276-4, 2284-8, 2131-9, 25436-6 #### [facility] ([id number]) [address], [address] [place] [address] Platelet mean volume (Bld) [Entitic vol] 7.9 fL Normal 7-12 [facility] Comment on above: Performed By: #### C MP, CBCA, 2276-4, 2284-8, 2132-9, 42770-6 #### [facility] ([id number]) [address], [facility] [address] [place] [address] Platelets (Bld) [#/Vol] 181 10*3/uL Normal 150-450 [facility] Comment on above: Performed By: #### C MP, CBCA, 2276-4, 2284-8, 2131-9, 79286-8 #### [facility] ([id number]) [address], [facility] [address] [place] [address] RBC COUNT 3.41 X10E12/L Low 3.80-5.20 [facility] Comment on above: Performed By: #### C MP, CBCA, 2276-4, 2284-8, 2131-9, 69114-7 #### [facility] ([id number]) [address], [facility] [address] [place] [address] WBC (Bld) [#/Vol] 10.3 10*3/uL Normal 4.0-11.0 [facility] Comment on above: Performed By: #### C MP, CBCA, 2276-4, 2284-8, 2131-9, 98213-5 #### [facility] ([id number]) [address], [address] [place] [address] COMPREHENSIVE METABOLIC PANE Vini 08-04-2024 Albumin [Mass/Vol] 3.3 g/dL Normal 3.2-5.3 [facility] Comment on above: Performed By: #### C MP, CBCA, 2276-4, 2284-8, 2132-9, 91310-1 #### [facility] ([id number]) [address], [address] [place] [address] ALP [Catalytic activity/Vol] 88 U/L Normal 39-130 [facility] Comment on above: Performed By: #### C MP, CBCA, 2276-4, 2284-8, 2131-9, 11611-5 #### [facility] ([id number]) [address], [address] [place] [address] ALT [Catalytic activity/Vol] 9 U/L Normal 0-31 [facility] Comment on above: Performed By: #### C MP, CBCA, 2276-4, 2284-8, 2131-9, 06708-4 #### [facility] ([id number]) [address], [address] [place] [address] Anion gap [Moles/Vol] 10 mmol/L Normal 5-15 [facility] Comment on above: Performed By: #### C MP, CBCA, 2276-4, 2284-8, 2131-9, 31812-0 #### [facility] ([id number]) [address], [address] [place] [address] AST [Catalytic activity/Vol] 17 U/L Normal 0-41 [facility] Comment on above: Performed By: #### C MP, CBCA, 2276-4, 2284-8, 2131-9, 37973-7 #### [facility] ([id number]) [address], [address] [place] [address] Bilirubin [Mass/Vol] 0.5 mg/dL Normal 0.3-1.2 [facility] Comment on above: Performed By: #### C MP, CBCA, 2276-4, 2284-8, 2131-9, 23218-8 #### [facility] ([id number]) [address], [address] [place] [address] Calcium [Mass/Vol] 8.4 mg/dL Low 8.5-10.5 [facility] Comment on above: Performed By: #### C MP, CBCA, 2276-4, 2284-8, 2131-9, 21981-2 #### [facility] ([id number]) [address], [address] [place] [address] Chloride [Moles/Vol] 106 mmol/L Normal 98-109 [facility] Comment on above: Performed By: #### C MP, CBCA, 2276-4, 2284-8, 2131-9, 22004-1 #### [facility] ([id number]) [address], [facility] [address] [place] [address] CO2 [Moles/Vol] 20 mmol/L Low 22-32 [facility] Comment on above: Performed By: #### C MP, CBCA, 2276-4, 2284-8, 2131-9, 55673-3 #### [facility] ([id number]) [address], [address] [place] [address] Creatinine [Mass/Vol] 0.54 mg/dL Normal 0.40-1.00 [facility] Comment on above: Result Comment: METH OD TRACEABLE TO IDMS STANDARD Performed By: #### C MP, CBCA, 2276-4, 2284-8, 2131-9, 39873-3 #### [facility] ([id number]) [address], [address] [place] [address] eGFR (CKD-EPI) NON-RACE DEPENDENT >90 Normal >59 [facility] Comment on above: Result Comment: Reported eGFR is based on the CKD-EPI 2020 equation that does not use a race coefficient. Performed By: #### C MP, CBCA, 2276-4, 2284-8, 2131-9, 51967-0 #### [facility] ([id number]) [address], [address] [place] [address] Glucose [Mass/Vol] 83 mg/dL Normal 65-99 [facility] Comment on above: Performed By: #### C MP, CBCA, 2276-4, 2284-8, 2131-9, 80134-6 #### [facility] ([id number]) [address], [address] [place] [address] Potassium [Moles/Vol] 3.5 mmol/L Normal 3.5-5.0 [facility] Comment on above: Performed By: #### C MP, CBCA, 2276-4, 2284-8, 2131-9, 21717-6 #### [facility] ([id number]) [address], [address] [place] [address] Protein [Mass/Vol] 6.1 g/dL Normal 6.0-8.0 [facility] Comment on above: Performed By: #### C MP, CBCA, 2276-4, 2284-8, 2131-9, 74910-4 #### [facility] ([id number]) [address], [address] [place] [address] Sodium [Moles/Vol] 136 mmol/L Normal 134-146 [facility] Comment on above: Performed By: #### C MP, CBCA, 2276-4, 2284-8, 2131-9, 49731-5 #### [facility] ([id number]) [address], [address] [place] [address] Urea nitrogen [Mass/Vol] 7 mg/dL Normal 5-23 [facility] Comment on above: Performed By: #### C MP, CBCA, 2276-4, 2284-8, 2131-9, 64899-9 #### [facility] ([id number]) [address], [address] [place] [address] DRUG SCREEN, URINEon 024 AMPHETAMINE/METHAMP Negative Normal NEG [facility] Comment on above: Result Comment: AMPH /METH screening cut off = 1000 ng/mL Performed By: #### D YOUSSEF #### [facility] ([id number]) [address], [address] [place] [address] BARBITURATES Negative Normal NEG [facility] Comment on above: Result Comment: Erica iturates screening cut off value = 200 ng/mL Performed By: #### D YOUSSEF #### [facility] ([id number]) [address], [address] [place] [address] BENZODIAZEPINES Negative Normal NEG [facility] Comment on above: Result Comment: Jorge odiazepines screening cut off value = 200 ng/mL Performed By: #### D YOUSSEF #### [facility] ([id number]) [address], [address] [place] [address] CANNABINOIDS Negative Normal [facility] Comment on above: Result Comment: Radha abinoids/THC screening cut off value = 50 ng/mL Performed By: #### D YOUSSEF #### [facility] ([id number]) [address], [address] [place] [address] COCAINE METABOLITE Negative Normal NEG [facility] Comment on above: Result Comment: Coca ine screening cut off value = 300 ng/mL Performed By: #### D YOUSSEF #### [facility] ([id number]) [address], [address] [place] [address] ECSTASY Negative Normal NEG [facility] Comment on above: Result Comment: Ecst asy screening cut off value = 500 ng/mL This report is intended for use in clinical monitoring or management of patients. Performed By: #### D YOUSSEF #### [facility] ([id number]) [address], [address] [place] [address] METHADONE Negative Normal NEG [facility] Comment on above: Result Comment: Meth adone screening cut off value = 300 ng/mL. Performed By: #### D YOUSSEF #### [facility] ([id number]) [address], [address] [place] [address] OPIATES Negative Normal NEG [facility] Comment on above: Result Comment: Opia torrey screening cut off value = 300 ng/mL NOTE: This test is used for the detection of codeine, hydrocodone (>1000 ng/mL), morphine and hydromorphone (>900 ng/mL) in urine. Performed By: #### D YOUSSEF #### [facility] ([id number]) [address], [address] [place] [address] OXYCODONE Negative Normal NEG [facility] Comment on above: Result Comment: Oxyc odone screening cut off value = 300 ng/mL NOTE: This test is used for the detection of oxycodone and oxymorphone in urine. Performed By: #### D YOUSSEF #### [facility] ([id number]) [address] [address] PHENCYCLIDINE Negative Normal NEG [facility] Comment on above: Result Comment: Phen cyclidine screening cut off value = 25 ng/mL Performed By: #### D OYUSSEF #### [facility] ([id number]) [address] [address] FERRITINon 08-04-2024 Ferritin [Mass/Vol] 15 ng/mL Normal 11-307 [facility] Comment on above: Performed By: #### C MP, CBCA, 2276-4, 2284-8, 2131-9, 65991-5 #### [facility] ([id number]) [address] [address] Folate [Mass/Vol]on 08-04-20 24 FOLIC ACID 16.4 ng/mL Normal >5.8 [facility] Comment on above: Result Comment: NEW REFERENCE RANGE Performed By: #### C MP, CBCA, 2276-4, 2284-8, 2132-9, 65943-2 #### [facility] ([id number]) [address] [place] [address] Glucose Glucometer (BldC) [M ass/Vol]on 08-04-2024 Glucose [Mass/Vol] 82 mg/dL Normal 65-99 [facility] MR ABDOMEN WO CONTon 024 MR [...] 10:11 AM. This will be documented in [employer] results tracking once complete. Finalized by Douglas Kumar on 08/04/2024 10:12 AM Normal [facility] MR PELVIS WO CONTon 08-04-20 24 MR [...] 10:11 AM. This will be documented in [employer] results tracking once complete. Finalized by Douglas Kumar on 08/04/2024 10:12 AM Normal [facility] PROTIME AND INRon 08-04-2024 INR Coag (PPP) [Relative time] 1.0 {INR} Normal 0.8-1.1 [facility] Comment on above: Performed By: #### C MP, CBCA, 2276-4, 2284-8, 2131-9, 77405-4 #### [facility] ([id number]) [address] [facility] [facility] [place] [address] PT Coag (PPP) [Time] 11.8 s Normal 9.8-13.2 [facility] Comment on above: Performed By: #### C MP, CBCA, 2276-4, 2284-8, 2131-9, 15987-8 #### [facility] ([id number]) [address] [facility] [place] [address] STREP B SCREEN CULTUREon S. agalactiae Org specific cx Ql (Vag+Rectum) CULTURE RESULTS NEGATIVE FOR GROUP B STREPTOCOCCUS BY NUCLEIC ACID AMPLIFICATION Normal [facility] Comment on above: Performed By: #### C MP, CBCA, 2276-4, 2284-8, 2132-9, 68556-9 #### [facility] ([id number]) [address] [address] [place] [address] T. pallidum IgG+IgM IA Ql (S )on 08-04-2024 Syphilis Total <0.2 Normal 0.0-0.8 [facility] Comment on above: Result Comment: NON REACTIVE No serologic evidence of infection to Treponema pallidum (syphilis). Repeat testing may be considered in patients with suspected acute or primary syphilis in 2 to 4 weeks. Performed By: #### C MP, CBCA, 2276-4, 2284-8, 2132-9, 95585-7 #### [facility] ([id number]) [address] [address] URINALYSISon 08-04-2024 Bilirubin Ql (U) Negative Normal NEG [facility] Comment on above: Performed By: #### U A #### [facility] ([id number]) [address] [address] BLOOD/HGB Negative Normal NEG [facility] Comment on above: Performed By: #### U A #### [facility] ([id number]) [address] [address] Color (U) YELLOW Normal YELLOW [facility] Comment on above: Performed By: #### U A #### [facility] ([id number]) [address] [address] Glucose Ql (U) Negative Normal NEG [facility] Comment on above: Performed By: #### U A #### [facility] ([id number]) [address] [address] Ketones Ql (U) 20 mg/dL Abnormal NEG [facility] Comment on above: Performed By: #### U A #### [facility] ([id number]) [address] [address] [place] [address] Leukocyte esterase Test strip Ql (U) Small Abnormal NEG [facility] Comment on above: Performed By: #### U A #### [facility] ([id number]) [address], [address] [place] [address] MUCOUS PRESENT Abnormal NONE [facility] Comment on above: Performed By: #### U A #### [facility] ([id number]) [address], [address] [place] [address] Nitrite Ql (U) Negative Normal NEG [facility] Comment on above: Performed By: #### U A #### [facility] ([id number]) [address] [facility] [place] [address] pH (U) 6.5 [pH] Normal 5.0-8.5 [facility] Comment on above: Performed By: #### U A #### [facility] ([id number]) [address] [facility], [address] [place] [address] Protein Ql (U) Trace Abnormal NEG [facility] Comment on above: Performed By: #### U A #### [facility] ([id number]) [address] [facility], [address] [place] [address] R.B.CELLS 1 /hpf Normal 0-5 [facility] Comment on above: Performed By: #### U A #### [facility] ([id number]) [address], [address] [place] [address] Specific gravity (U) [Rel density] 1.016 Normal 1.003-1.035 [facility] Comment on above: Performed By: #### U A #### [facility] ([id number]) [address], [address] [place] [address] SQUAMOUS EPITHELIUM 3 /hpf Normal 0-5 [facility] Comment on above: Performed By: #### U A #### [facility] ([id number]) [address], [address] [address] TURBIDITY CLEAR Normal CLEAR [facility] Comment on above: Performed By: #### U A #### [facility] ([id number]) [address], [address] [address] Urobilinogen (U) [Mass/Vol] mg/dL Normal <1.1 [facility] Comment on above: Performed By: #### U A #### [facility] ([id number]) [address] [address] W.B.CELLS 2 /hpf Normal 0-5 [facility] Comment on above: Performed By: #### U A #### [facility] ([id number]) [address] [address] URINE CULTUREon 08-04-2024 Bacteria identified Cx Nom (U) CULTURE RESULTS NO GROWTH AT <1000 CFU/mL Normal [facility] Comment on above: Performed By: #### C MP, CBCA, 2276-4, 2284-8, 2-9, 74720-0 #### [facility] ([id number]) [address] [address] VITAMIN B12on 08-04-2024 Cobalamin (Vitamin B12) [Mass/Vol] 138 pg/mL Low 180-914 [facility] Comment on above: Performed By: #### C MP, CBCA, 2276-4, 2284-8, 2131-9, 83157-0 #### [facility] ([id number]) [address] [address] Urinalysis macro (dipstick) panel (U)on 07-29-2024 Bilirubin, UA Negative Negative - 4(70) +++ mg/dL [facility] Healthcare Blood, UA Negative Negative - 50 Jd/mcL [facility] Clarity, UA Clear [facility] Color, UA Yellow [facility] Glucose, UA Negative Negative - 2000(110) ++++ mg/dL [facility] Interpretation and review of laboratory results Normal [facility] Ketones, UA Negative Negative - 160(16) ++++ mg/dL [facility] Leukocytes, UA Negative Negative - 500+++ Mookie/mcL [facility] Nitrite, UA Negative Negative - Positive [facility] pH, UA 7 5 - 9 [facility] [employer] [facility] Protein, UA Negative Negative - 2000(20) ++++ mg/dL [facility] Spec Grav, UA 1.015 1 - 1.03 [facility] Urobilinogen, UA 0.2 0.2 - 12 mg/dL [facility] IGP,APTIMA HPV,AGE GDLNon AGE GDLN ACOG TESTING Note . [facility] Comment on above: TESTS RESULT FLAG UN ITS REF RANGE LAB Clinician Provided Cytology Information Source.............Cervix Other.............. No. of containers..01 ThinPrep Vial Age Algo ACOG Torrey... -30 10 FLAG LEGEND: L-Low Normal,H-High Normal,LL-Alert Low,HH-Alert High <-Panic Low,>-Panic High,A-Abnormal,AA-Critical Abnormal Performed at: 01 =G [facility] [place] [address] Leticia Longo MD, IGP, RFX APTIMA HPV ASCU Note . [facility] Comment on above: TESTS RESULT FLAG UN ITS REF RANGE LAB DIAGNOSIS: 02 NEGATIVE FOR INTRAEPITHELIAL LESION OR MALIGNANCY. THIS SPECIMEN WAS RESCREENED PART OF OUR OPTICAL GLASS SAWYER PROGRAM. Specimen adequacy: 02 Satisfactory for evaluation. No endocervical component is identified. Performed by: 02 Margi Jamison, Machine Tool Designer ([facility]) QC reviewed by: 02 Nicole Houston, Machine Tool Designer . 02 Note: Note 02 The Pap [...] <-Panic Low,>-Panic High,A-Abnormal,AA-Critical Abnormal Performed at: 02 [facility] [address] [place] [address] Leticia Longo MD, Performed at: =G - [facility] [address] [id number] Press Assistant: Leticia Longo MD, Phone: [phone] Performed at: [address] [id number] Press Assistant: Leticia Longo MD, Phone: [phone] [facility] Healthcar e URETHRITIS/DISCHARGE PLUS VA GINITIS (HTRX)on 07-05-2024 ATOPOBIUM VAGINAE 0.000 [facility] ATOPOBIUM VAGINAE Not detected [facility] BVAB 2,3 (BACTERIAL VAGINOSIS ASSOCIATED BACTERIA 2, 3); MOBILUNCUS SPP 0.000 [facility] BVAB 2,3 (BACTERIAL VAGINOSIS ASSOCIATED BACTERIA 2, 3); MOBILUNCUS SPP Not detected [facility] ASHLEY ALBICANS, PARAPSILOSIS, TROPICALIS 0.000 [facility] ASHLEY ALBICANS, PARAPSILOSIS, TROPICALIS Not detected [facility] Healthcare ASHLEY GLABRATA 0.000 [facility] ASHLEY GLABRATA Not detected [facility] ASHLEY KRUSEI 0.000 [facility] Healt hcare ASHLEY KRUSEI Not detected [facility] CHLAMYDIA TRACHOMATIS 0.000 [facility] CHLAMYDIA TRACHOMATIS Not detected [facility] GARDNERELLA VAGINALIS 0.000 [facility] GARDNERELLA VAGINALIS Not detected [facility] MEGASPHAERA (TYPES 1, 2) 0.000 [facility] MEGASPHAERA (TYPES 1, 2) Not detected [facility] Healthcare MYCOPLASMA GENITALIUM 0.000 [facility] MYCOPLASMA GENITALIUM Not detected [facility] NEISSERIA GONORRHOEAE 0.000 [facility] NEISSERIA GONORRHOEAE Not detected [facility] TRICHOMONAS VAGINALIS 0.000 [facility] TRICHOMONAS VAGINALIS Not detected [facility] Urinalysis macro (dipstick) panel (U)on 06-05-2024 Bilirubin, UA Negative Negative - 4(70) +++ mg/dL [facility] Blood, UA Negative Negative - 50 Jd/mcL [facility] Clarity, UA Clear [facility] re Color, UA Yellow [facility] Glucose, UA Negative Negative - 2000(110) ++++ mg/dL [facility] Interpretation and review of laboratory results Normal [facility] Ketones, UA Negative Negative - 160(16) ++++ mg/dL [facility] Leukocytes, UA Negative Negative - 500+++ Mookie/mcL [facility] Nitrite, UA Negative Negative - Positive [facility] pH, UA 6.5 5 - 9 [facility] Healthcar e Protein, UA Negative Negative - 2000(20) ++++ mg/dL [facility] Spec Grav, UA 1.015 1 - 1.03 [facility] Urobilinogen, UA 1.0 0.2 - 12 mg/dL [facility] Health[facility] CBC AND AUTO DIFFon 03-11-20 24 ABSOLUTE BASOPHIL 0.0 X10E9/L Normal 0.0-0.2 [facility] Comment on above: Performed By: #### Dar VALENTINE [facility], #### [facility] ([id number]) [address] [place] [address] ABSOLUTE NEUTROPHIL 7.1 X10E9/L High 1.5-6.6 [facility] Comment on above: Performed By: #### Dar VALENTINE CMP, #### [facility] ([id number]) [address] [place] [address] Basophils/100 WBC (Bld) 0.2 % Normal [facility] Comment on above: Performed By: #### Dar VALENTINE [facility], #### [facility] ([id number]) [address] [place] [address] Eosinophils (Bld) [#/Vol] 0.0 10*3/uL Normal 0.0-0.4 [facility] Comment on above: Performed By: #### Dar VALENTINE CMP, #### [facility] ([id number]) [address] [place] [address] Eosinophils/100 WBC (Bld) 0.4 % Normal [facility] Comment on above: Performed By: #### Dar VALENTINE CMP, #### [facility] ([id number]) [address] [place] [address] Erythrocyte distribution width (RBC) [Ratio] 13.4 % Normal 11.5-15.0 [facility] Comment on above: Performed By: #### Dar VALENTINE CMP, #### [facility] ([id number]) [address] [place] [address] Hematocrit (Bld) [Volume fraction] 39.9 % Normal 35-47 [facility] Comment on above: Performed By: #### Dar VALENTINE CMP, #### [facility] ([id number]) [address] [place] [address] Hemoglobin (Bld) [Mass/Vol] 13.9 g/dL Normal 11.7-15.5 [facility] Comment on above: Performed By: #### Dar VALENTINE CMP, #### [facility] ([id number]) [address] [place] [address] Lymphocytes (Bld) [#/Vol] 2.0 10*3/uL Normal 1.0-3.5 [facility] Comment on above: Performed By: #### Dar VALENTINE CMP, #### [facility] ([id number]) [address] [place] [address] Lymphocytes/100 WBC (Bld) 20.6 % Normal [facility] Comment on above: Performed By: #### Dar VALENTINE CMP, #### [facility] ([id number]) [address] [place] [address] MCH (RBC) [Entitic mass] 29.4 pg Normal 27-34 [facility] Comment on above: Performed By: #### Dar VALENTINE CMP, #### [facility] ([id number]) [address] [place] [address] MCHC (RBC) [Mass/Vol] 34.9 g/dL Normal 32-36 [facility] Comment on above: Performed By: #### C MEME CMP, #### [facility] ([id number]) [address] [place] [address] MCV (RBC) [Entitic vol] 84 fL Normal 80-100 [facility] Comment on above: Performed By: #### C MEME CMP, #### [facility] ([id number]) [address] [place] [address] Monocytes (Bld) [#/Vol] 0.7 10*3/uL Normal 0-0.9 [facility] Comment on above: Performed By: #### Dar VALENTINE CMP, #### [facility] ([id number]) [address] [place] [address] Monocytes/100 WBC (Bld) 7.4 % Normal [facility] Comment on above: Performed By: #### Dar VALENTINE, CMP, #### [facility] ([id number]) [address] [place] [address] Neutrophils/100 WBC (Bld) 71.4 % Normal [facility] Comment on above: Performed By: #### Dar VALENTINE, CMP, #### [facility] ([id number]) [address] [place] [address] Platelet mean volume (Bld) [Entitic vol] 9.0 fL Normal 7-12 [facility] Comment on above: Performed By: #### Dar VALENTINE, CMP, #### [facility] ([id number]) [address] [place] [address] Platelets (Bld) [#/Vol] 194 10*3/uL Normal 150-450 [facility] Comment on above: Performed By: #### Dar VALENTINE, CMP, #### [facility] ([id number]) [address] [place] [address] RBC COUNT 4.74 X10E12/L Normal 3.80-5.20 [facility] Comment on above: Performed By: #### C BCA, CMP, #### [facility] ([id number]) [address] [place] [address] WBC (Bld) [#/Vol] 10.0 10*3/uL Normal 4.0-11.0 [place] Comment on above: Performed By: #### C BCA, CMP, #### [facility] ([id number]) [address] [place] [address] COMPREHENSIVE METABOLIC PANE Vini 03-11-2024 Albumin [Mass/Vol] 4.2 g/dL Normal 3.2-5.3 [facility] Comment on above: Performed By: #### C BCA, CMP, #### [facility] ([id number]) [address] [place] [address] ALP [Catalytic activity/Vol] 47 U/L Normal 39-130 [facility] Comment on above: Performed By: #### C BCA, CMP, #### [facility] ([id number]) [address] [place] [address] ALT [Catalytic activity/Vol] 15 U/L Normal 0-31 [facility] Comment on above: Performed By: #### C BCA, CMP, #### [facility] ([id number]) [address] [place] [address] Anion gap [Moles/Vol] 7 mmol/L Normal 5-15 [facility] [facility] Comment on above: Performed By: #### C BCA, CMP, #### [facility] ([id number]) [address] [place] [address] 72795 AST [Catalytic activity/Vol] 15 U/L Normal 0-41 [facility] Comment on above: Performed By: #### C AUREA VALENTINE, #### [facility] ([id number]) [address] [place] [address] 86047 Bilirubin [Mass/Vol] 0.5 mg/dL Normal 0.3-1.2 [facility] Comment on above: Performed By: #### C AUREA VALENTINE, #### [facility] ([id number]) [address] [place] [address] 35480 Calcium [Mass/Vol] 8.7 mg/dL Normal 8.5-10.5 [facility] Comment on above: Performed By: #### C AUREA VALENTINE, #### [facility] ([id number]) [address] [place] [address] 40371 Chloride [Moles/Vol] 103 mmol/L Normal 98-109 [facility] Comment on above: Performed By: #### C AUREA VALENTINE, #### [facility] ([id number]) [address] [place] [address] 58391 CO2 [Moles/Vol] 22 mmol/L Normal 22-32 [facility] Comment on above: Performed By: #### C AUREA VALENTINE, #### [facility] ([id number]) [address] [place] [address] 37950 Creatinine [Mass/Vol] 0.72 mg/dL Normal 0.40-1.00 [facility] Comment on above: Result Comment: METH OD TRACEABLE TO IDMS STANDARD Performed By: #### C AUREA VALENTINE, #### [facility] ([id number]) [address] [place] [address] 14058 eGFR (CKD-EPI) NON-RACE DEPENDENT >90 Normal >59 [facility] Comment on above: Result Comment: Reported eGFR is based on the CKD-EPI 2020 equation that does not use a race coefficient. Performed By: #### C AUREA VALENTINE, #### [facility] ([id number]) [address] [place] [address] 35785 Glucose [Mass/Vol] 81 mg/dL Normal 65-99 [facility] Comment on above: Performed By: #### C AUREA VALENTINE, #### [facility] ([id number]) [address] [place] [address] 55690 Potassium [Moles/Vol] 3.7 mmol/L Normal 3.5-5.0 [facility] Comment on above: Performed By: #### C AUREA VALENTINE, #### [facility] ([id number]) [address] [place] [address] 43997 Protein [Mass/Vol] 7.4 g/dL Normal 6.0-8.0 [facility] Comment on above: Performed By: #### C MEME [facility], #### [facility] ([id number]) [address] [place] [address] 70272 Sodium [Moles/Vol] 132 mmol/L Low 134-146 [facility] Comment on above: Performed By: #### C AUREA VALENTINE, #### [facility] ([id number]) [address] [place] [address] 81970 Urea nitrogen [Mass/Vol] 14 mg/dL Normal 5-23 [facility] Comment on above: Performed By: #### C AUREA VALENTINE, #### [facility] ([id number]) [address] [place] [address] 08277 HCG ( test) Ql (U)o n 03-11-2024 Beta HCG ( test) Ql (U) Positive Abnormal NEG [facility] Comment on above: Performed By: #### 2 106-3 #### [facility] ([id number]) [address] [place] [address] 79960 HCG.beta subunit IA 3rd IS Q non 03-11-2024 HCG.beta subunit Qn 297158 m[IU]/mL Normal [facility] Comment on above: Result Comment: NEW REFERENCE [...] or nontrophoblastic neoplasms. Performed By: #### C MEME, [facility], 07208-4 #### [facility] ([id number]) [address] [place] [address] 63731 URINE CULTUREon 03-11-2024 Bacteria identified Cx Nom (U) CULTURE RESULTS <10,000 ORGANISMS/ML NORMAL URO GENITAL RICK Normal [facility] Comment on above: Performed By: #### 6 30-4 #### [facility] ([id number]) [address] [place] [address], [address] [place] [address] URN MACROSCOPIC NURon 2023 BILIRUBIN FAWAD Negative Normal NEG [facility] Comment on above: Performed By: #### N UM #### [facility] ([id number]) [address] [place] [address] 20632 BLOOD/HGB FAWAD Negative Normal NEG [facility] Comment on above: Performed By: #### N UM #### [facility] ([id number]) [address] [place] [address] [place] [address] GLUCOSE FAWAD Negative Normal NEG [facility] Comment on above: Performed By: #### N UM #### [facility] ([id number]) [address] [place] [address] [place] [address] KETONES FAWAD Negative Normal NEG [facility] Comment on above: Performed By: #### N UM #### [facility] ([id number]) [address] [place] [address] [place] [address] LEUKOCYTE ESTERASE FAWAD Trace Abnormal NEG [facility] Comment on above: Performed By: #### N UM #### [facility] ([id number]) [address] [place] [address] [place] [address] NITRITE FAWAD Negative Normal NEG [facility] Comment on above: Performed By: #### N UM #### [facility] ([id number]) [address] [place] [address] [place] [address] PH FAWAD 6.5 Normal 5.0-8.5 [facility] Comment on above: Performed By: #### N UM #### [facility] ([id number]) [address] [place] [address] [place] [address] PROTEIN FAWAD Negative Normal NEG [facility] Comment on above: Performed By: #### N UM #### [facility] ([id number]) [address] [place] [address], [place] [address] SPECIFIC GRAVITY FAWAD 1.010 Normal 1.003-1.035 [facility] Comment on above: Performed By: #### N UM #### [facility] ([id number]) [address] [place] [address], [place] [address] UROBILINOGEN FAWAD 0.2 eu/dL Normal <1.1 [facility] Comment on above: Performed By: #### N UM #### [facility] ([id number]) [address] [place] [address] [place] ABDOMEN AND PELVIS WO CON Ton [...] Robbins MD on 11/26/2023 5:33 PM Normal [facility] HCG ( test) Ql (U)o n 11-26-2023 Beta HCG ( test) Ql (U) Negative Normal NEG [facility] Comment on above: Performed By: #### 2 106-3 #### [facility] ([id number]) [address] [place] [address] 84170 URINE CULTUREon 11-26-2023 Bacteria identified Cx Nom [...] TOBRAMYCIN S <=1 F TRIMETH/SULFAMETHOXA ZOLE S <=10/20 F Susceptible [facility] Comment on above: Performed By: #### 6 30-4 #### [facility] ([id number]) [address] [place] [address], [address] [place] [address] URN MACROSCOPIC NURon 2023 BILIRUBIN FAWAD Negative Normal NEG [facility] Comment on above: Performed By: #### N UM #### [facility] ([id number]) [address] [place] [address] 95749 BLOOD/HGB FAWAD Trace Abnormal NEG [facility] Comment on above: Performed By: #### N UM #### [facility] ([id number]) [address] [place] [address] 55944 GLUCOSE FAWAD Negative Normal NEG [facility] Comment on above: Performed By: #### N UM #### [facility] ([id number]) [address] [place] [address] 33785 KETONES FAWAD Negative Normal NEG [facility] Comment on above: Performed By: #### N UM #### [facility] ([id number]) [address] [place] [address] 53828 LEUKOCYTE ESTERASE FAWAD Trace Abnormal NEG [facility] Comment on above: Performed By: #### N UM #### [facility] ([id number]) [address] [place] [address] [place] [address] NITRITE FAWAD Negative Normal NEG [facility] Comment on above: Performed By: #### N UM #### [facility] ([id number]) [address] [place] [address] 19116 PH FAWAD 7.0 Normal 5.0-8.5 [facility] Comment on above: Performed By: #### N UM #### [facility] ([id number]) [address] [place] [address] 14176 PROTEIN FAWAD Negative Normal NEG [facility] Comment on above: Performed By: #### N UM #### [facility] ([id number]) [address] [place] [address] 55556 SPECIFIC GRAVITY FAWAD 1.020 Normal 1.003-1.035 [facility] Comment on above: Performed By: #### N UM #### [facility] ([id number]) [address] [place] [address] 27412 UROBILINOGEN FAWAD 0.2 eu/dL Normal <1.1 [facility] Comment on above: Performed By: #### N UM #### [facility] ([id number]) [address] [place] [address] 02981 ED Note-Physicianon 09-29-20 ED Note-Physician [id number] #[id number] Normal [facility] Urinalysis - AUTOMATEDon Appearance (U) clear [employer] Other Bilirubin Ql (U) Negative [employer] Other Color (U) light yellow [employer] Other Glucose Ql (U) Negative [employer] Other Hemoglobin Ql (U) Negative [employer] Other Ketones Ql (U) Negative [employer] Other Leukocyte esterase Test strip Ql (U) Negative [employer] Other Nitrite Ql (U) Negative [employer] Other pH (U) 6.0 [pH] enrich-in Other Protein Ql (U) Negative [employer] Other Specific gravity (U) [Rel density] >1.030 [employer] Other Urobilinogen (U) [Mass/Vol] 0.2 mg/dL [employer] Other Urinalysis - AUTOMATED [place] [facility] Other Vaginitis Plus (VG+)on 07-17 Vaginitis Plus (VG+) Negative Negative [employer] Other Vaginitis Plus (VG+) Low - 0 . [facility] [employer] [facility] Other Atop[employer]ium Vaginae Low - 0 Normal . [facility] Comment on above: Performed By: #### V AGINITIS+ #### [facility] , BVAB2 Low - 0 Normal . [facility] Comment on above: Performed By: #### V AGINITIS+ #### [facility] , Ashley Albicans, CHULA Negative Normal Negative [facility] Comment on above: Result Comment: This test was developed and its performance characteristics determined by [employer]. It has not been cleared or approved by the Food and Drug Administration. Performed By: #### V AGINITIS+ #### [facility] , Ashley Glabrata, CHULA Negative Normal Negative [facility] Comment on above: Result Comment: This test was developed and its performance characteristics determined by [employer]. It has not been cleared or approved by the Food and Drug Administration. PERFORMED BY: [address] [place] [address] PATHOLOGIST CONTRACTING ANALYST NELL GAUTAM M.D. Performed By: #### V AGINITIS+ #### [facility] , Chlamydia Trachomotis, CHULA Negative Normal Negative [facility] Comment on above: Performed By: #### V AGINITIS+ #### [facility] , Megasphaera Low - 0 Normal . [facility] Comment on above: Result Comment: Calc [...] Gonorrhoeae, CHULA Negative Normal Negative [facility] Comment on above: Result Comment: Perf ormed at: =G - [facility] [address] [id number] Press Assistant: Leticia Longo MD, Phone: [phone] Performed By: #### V AGINITIS+ #### [facility] , Tric Vag CHULA Negative Normal Negative [facility] Comment on above: Performed By: #### V AGINITIS+ #### [facility] , CBC AUTO DIFFon 12-27-2022 BASO # 0.0 103/ul Normal 0.0-0.1 [facility] Comment on above: Performed By: #### R PRQ #### [facility] [address] [place] [address] Dr. Valerio Alexis Basophils/100 WBC (Bld) 0.2 % Normal 0.2-2.0 [facility] Comment on above: Performed By: #### R PRQ #### [facility] [address] [place] [address] Dr. Valerio Alexis EO # 0.1 103/ul Normal 0.0-0.7 [facility] Comment on above: Performed By: #### R PRQ #### [facility] [address] [address] [address] Valerio Alexis Eosinophils/100 WBC (Bld) 0.6 % Critically low 0.9-7.0 [facility] Comment on above: Performed By: #### R PRQ #### [facility] [address] [place] [address] Dr. Valerio Alexis Erythrocyte distribution width (RBC) [Ratio] 14.1 % Normal 11.0-15.0 [facility] Comment on above: Performed By: #### R PRQ #### [facility] [address] [place] [address] Dr. Valerio Alexis Hematocrit (Bld) [Volume fraction] 35.7 % Critically low 36.0-48.0 [facility] Comment on above: Performed By: #### R PRQ #### [facility] [address] [place] [address] Dr. Valerio Alexis Hemoglobin (Bld) [Mass/Vol] 11.9 g/dL Critically low 12.0-16.0 [facility] Comment on above: Performed By: #### R PRQ #### [facility] [address] [place] [address] Dr. Valerio Alexis IG # 0.02 10e3/ul Normal 0.00-0.03 [facility] Comment on above: Performed By: #### R PRQ #### [facility] [address] [place] [address] Dr. Valerio Alexis IG % 0.2 % Normal 0.0-0.5 [facility] Comment on above: Performed By: #### R PRQ #### [facility] [address] [place] [address] Dr. Valerio Alexis LYMPH # 1.0 103/ul Critically low 1.2-3.8 [facility] Comment on above: Performed By: #### R PRQ #### [facility] [address] [place] [address] Dr. Valerio Alexis Lymphocytes/100 WBC (Bld) 12.4 % Critically low 20.5-60.0 [facility] Comment on above: Performed By: #### R PRQ #### [facility] [address] [place] [address] Dr. Valerio Alexis MANUAL DIFF REQ NO Normal [facility] Comment on above: Performed By: #### R PRQ #### [facility] [address] [place] [address] Dr. Valerio Alexis MCH (RBC) [Entitic mass] 26.7 pg Normal 26.7-34.0 [facility] Comment on above: Performed By: #### R PRQ #### [facility] [address] [place] [address] Dr. Valerio Alexis MCHC (RBC) [Mass/Vol] 33.3 g/dL Normal 29.9-35.2 [facility] Comment on above: Performed By: #### R PRQ #### [facility] [address] [place] [address] Dr. Valerio Alexis MCV (RBC) [Entitic vol] 80.2 fL Critically low 81.0-99.0 [facility] Comment on above: Performed By: #### R PRQ #### [facility] [address] [place] [address] Dr. Valerio Alexis MONO # 0.8 103/ul Normal 0.3-0.8 [facility] Comment on above: Performed By: #### R PRQ #### [facility] [address] [place] [address] Dr. Valerio Alexis Monocytes/100 WBC (Bld) 9.3 % Normal 1.7-12.0 [facility] Comment on above: Performed By: #### R PRQ #### [facility] [address] [place] [address] Dr. Valerio Alexis NEUT # 6.3 103/ul Normal 1.4-6.5 [facility] Comment on above: Performed By: #### R PRQ #### [facility] [address] [place] [address] Dr. Valerio Alexis Neutrophils/100 WBC (Bld) 77.3 % Critically high 43.0-75.0 [facility] Comment on above: Performed By: #### R PRQ #### [facility] [address] [place] [address] Dr. Valerio Alexis Platelet mean volume (Bld) [Entitic vol] 10.6 fL Normal 9.5-13.5 [facility] Comment on above: Performed By: #### R PRQ #### [facility] [address] [place] [address] Dr. Valerio Alexis PLT 192 103/ul Normal 150-450 [facility] Comment on above: Performed By: #### R PRQ #### [facility] [address] [place] [address] Dr. Valerio Alexis RBC 4.45 106/ul Normal 4.20-5.40 [facility] Comment on above: Performed By: #### R PRQ #### [facility] [address] [place] [address] Dr. Valerio Alexis WBC 8.2 103/ul Normal 4.0-11.0 [facility] Comment on above: Performed By: #### R PRQ #### [facility] [address] [place] [address] Dr. Valerio Alexis GI PANEL (PCR)on 12-27-2022 Adenovirus F 40/41 Not detected Normal NOT DETECTED [facility] Comment on above: Performed By: #### U RCX #### [facility] [address] [place] [address] Dr. Valerio Alexis Astrovirus Not detected Normal NOT DETECTED [facility] Comment on above: Performed By: #### U RCX #### [facility] [address] [place] [address] Dr. Valerio Alexis C. Diff toxin A/B Not detected Normal NOT DETECTED [facility] Comment on above: Performed By: #### U RCX #### [facility] [address] [place] [address] Dr. Valerio Alexis Campylobacter Detected Critically abnormal NOT DETECTED [facility] Comment on above: Performed By: #### U RCX #### [facility] [address] [place] [address] Dr. Valerio Alexis Cryptosporidium Not detected Normal NOT DETECTED [facility] Comment on above: Performed By: #### U RCX #### [facility] [address] [place] [address] Dr. Valerio Alexis Cyclos. Cayetanensis Not detected Normal NOT DETECTED [facility] Comment on above: Performed By: #### U RCX #### [facility] [address] [place] [address] Dr. Valerio Alexis E. Coli O157 Not Applicable Normal Not Applicable [facility] Comment on above: Performed By: #### U RCX #### [facility] [address] [place] [address] Dr. Valerio Alexis E. histolytica Not detected Normal NOT DETECTED [facility] Comment on above: Performed By: #### U RCX #### [facility] [address] [place] [address] Dr. Valerio Alexis EAEC Not detected Normal NOT DETECTED [facility] Comment on above: Performed By: #### U RCX #### [facility] [address] [place] [address] Dr. Valerio Alexis EIEC Not detected Normal NOT DETECTED [facility] Comment on above: Performed By: #### U RCX #### [facility] [address] [place] [address] Dr. Valerio Alexis EPEC Not detected Normal NOT DETECTED [facility] Comment on above: Performed By: #### U RCX #### [facility] [address] [place] [address] Dr. Valerio Alexis ETEC Not detected Normal NOT DETECTED [facility] Comment on above: Performed By: #### U RCX #### [facility] [address] [place] [address] Dr. Valerio Alexis G. Lamblia Not detected Normal NOT DETECTED [facility] Comment on above: Performed By: #### U RCX #### [facility] [address] [place] [address] Dr. Valerio DE OLIVEIRAL CONTROLS PASSED Normal [facility] Comment on above: Performed By: #### U RCX #### [facility] [address] [place] [address] Dr. Valerio HARRIS EDE HEADER GI PANEL BACTERIA Normal T [facility] Comment on above: Performed By: #### U RCX #### [facility] [address] [place] [address] Dr. Valerio HARRISHD ECOLI GI PANEL DIARRHEAGENIC E.COLI / SHIGELLA Normal [facility] Comment on above: Performed By: #### U RCX #### [facility] [address] [address] [address] Valerio LÓPEZ INFO SEE BELOW Normal [facility] Comment on above: Result Comment: EAEC - Enteroaggregative E. Coli EPEC- Enteropathogenic E. Coli ETEC- Enterotoxigenic E. Coli lt/st STEC- Shigella-like toxin-producing E. Coli stx1/stx2 EIEC- Shigella/Enteroinvasive E. Coli Performed By: #### U RCX #### [facility] [address] [address] [address] Valerio LÓPEZ PARASITES GI PANEL PARASITES Normal [facility] Comment on above: Performed By: #### U RCX #### [facility] [address] [address] [address] Valerio LÓPEZ VIRUS GI PANEL VIRUSES Normal [facility] Comment on above: Performed By: #### U RCX #### [facility] [address] [address] [address] Valerio Alexis Norovirus GI/GII Not detected Normal NOT DETECTED [facility] Comment on above: Performed By: #### U RCX #### [facility] [address] [address] [address] Valerio Alexis P. Shigelloides Not detected Normal NOT DETECTED [facility] Comment on above: Performed By: #### U RCX #### [facility] [address] [address] [address] Valerio Alexis Rotavirus A Not detected Normal NOT DETECTED [facility] Comment on above: Performed By: #### U RCX #### [facility] [address] [address] [address] Valerio Alexis Salmonella Not detected Normal NOT DETECTED [facility] Comment on above: Performed By: #### U RCX #### [facility] [address] [address] [address] Valerio Alexis Sapovirus Not detected Normal NOT DETECTED [facility] Comment on above: Performed By: #### U RCX #### [facility] [address] [place] [address] Dr. Valerio Alexis STEC Not detected Normal NOT DETECTED [facility] Comment on above: Performed By: #### U RCX #### [facility] [address] [place] [address] Dr. Valerio Alexis Vibrio Not detected Normal NOT DETECTED [facility] Comment on above: Performed By: #### U RCX #### [facility] [address] [place] [address] Dr. Valerio Alexis Vibrio Cholera Not detected Normal NOT DETECTED [facility] Comment on above: Performed By: #### U RCX #### [facility] [address] [place] [address] Dr. Valerio Alexis Y. Enterocolitica Not detected Normal NOT DETECTED [facility] Comment on above: Performed By: #### U RCX #### [facility] [address] [place] [address] Dr. Valerio Alexis PROF CHEM 8 (BAS METB)on Anion gap [Moles/Vol] 14.7 mmol/L Normal [facility] Comment on above: Performed By: #### R PRQ #### [facility] [address] [place] [address] Dr. Vlaerio Alexis Calcium [Mass/Vol] 8.8 mg/dL Normal 8.5-10.1 [facility] Comment on above: Performed By: #### R PRQ #### [facility] [address] [place] [address] Dr. Valerio Alexis Chloride [Moles/Vol] 104 mmol/L Normal 98-107 [facility] Comment on above: Performed By: #### R PRQ #### [facility] [address] [place] [address] Dr. Valerio Alexis CO2 [Moles/Vol] 23.6 mmol/L Normal 21.0-32.0 [facility] Comment on above: Performed By: #### R PRQ #### [facility] [address] [place] [address] Dr. Valerio Alexis Creatinine [Mass/Vol] 0.72 mg/dL Normal 0.55-1.02 [facility] Comment on above: Performed By: #### R PRQ #### [facility] [address] [address] [address] Valerio Alexis EGFR-AF GAMBIAN >60 Normal >=60 [facility] Comment on above: Performed By: #### R PRQ #### [facility] [address] [address] [address] Valerio Alexis EGFR-NON AF GAMBIAN >60 Normal >=60 [facility] Comment on above: Performed By: #### R PRQ #### [facility] [address] [address] [address] Valerio Alexis Glucose [Mass/Vol] 77 mg/dL Normal 74-106 [facility] Comment on above: Performed By: #### R PRQ #### [facility] [address] [place] [address] Dr. Valerio Alexis Potassium [Moles/Vol] 3.3 mmol/L Critically low 3.5-5.1 [facility] Comment on above: Performed By: #### R PRQ #### [facility] [address] [place] [address] Dr. Valerio Alexis Sodium [Moles/Vol] 139 mmol/L Normal 136-145 [facility] Comment on above: Performed By: #### R PRQ #### [facility] [address] [address] [address] Valerio Alexis Urea nitrogen [Mass/Vol] 12.0 mg/dL Normal 7.0-18.0 [facility] Comment on above: Performed By: #### R PRQ #### [facility] [address] [address] [address] Valerio Alexis Urea nitrogen/Creatinine [Mass ratio] 16.7 mg/mg Normal [facility] Comment on above: Performed By: #### R PRQ #### [facility] [address] [place] [address] Dr. Valerio Alexis CBC AUTO DIFFon 11-19-2022 BASO # 0.0 103/ul Normal 0.0-0.1 [facility] Comment on above: Performed By: #### H IV12 #### [facility] [address] [place] [address] Dr. Valerio Alexis Basophils/100 WBC (Bld) 0.2 % Normal 0.2-2.0 [facility] Comment on above: Performed By: #### H IV12 #### [facility] [address] [place] [address] Dr. Valerio Alexis EO # 0.1 103/ul Normal 0.0-0.7 [facility] Comment on above: Performed By: #### H IV12 #### [facility] [address] [place] [address] Dr. Valerio Alexis Eosinophils/100 WBC (Bld) 1.7 % Normal 0.9-7.0 [facility] Comment on above: Performed By: #### H IV12 #### [facility] [address] [place] [address] Dr. Valerio Alexis Erythrocyte distribution width (RBC) [Ratio] 13.4 % Normal 11.0-15.0 [facility] Comment on above: Performed By: #### H IV12 #### [facility] [address] [place] [address] Dr. Valerio Alexis Hematocrit (Bld) [Volume fraction] 38.0 % Normal 36.0-48.0 [facility] Comment on above: Performed By: #### H IV12 #### [facility] [address] [place] [address] Dr. Valerio Alexis Hemoglobin (Bld) [Mass/Vol] 12.5 g/dL Normal 12.0-16.0 [facility] Comment on above: Performed By: #### H IV12 #### [facility] [address] [place] [address] Dr. Valerio Alexis IG # 0.02 10e3/ul Normal 0.00-0.03 [facility] Comment on above: Performed By: #### H IV12 #### [facility] [address] [place] [address] Dr. Valerio Alexis IG % 0.3 % Normal 0.0-0.5 [facility] Comment on above: Performed By: #### H IV12 #### [facility] [address] [place] [address] Dr. Valerio Alexis LYMPH # 1.7 103/ul Normal 1.2-3.8 [facility] Comment on above: Performed By: #### H IV12 #### [facility] [address] [address] [address] Valerio Alexis Lymphocytes/100 WBC (Bld) 25.9 % Normal 20.5-60.0 [facility] Comment on above: Performed By: #### H IV12 #### [facility] [address] [place] [address] Dr. Valerio Alexis MANUAL DIFF REQ NO Normal [facility] Comment on above: Performed By: #### H IV12 #### [facility] [address] [place] [address] Dr. Valerio Alexis MCH (RBC) [Entitic mass] 26.3 pg Critically low 26.7-34.0 [facility] Comment on above: Performed By: #### H IV12 #### [facility] [address] [place] [address] Dr. Valerio Alexis MCHC (RBC) [Mass/Vol] 32.9 g/dL Normal 29.9-35.2 [facility] Comment on above: Performed By: #### H IV12 #### [facility] [address] [place] [address] Dr. Valerio Alexis MCV (RBC) [Entitic vol] 80.0 fL Critically low 81.0-99.0 [facility] Comment on above: Performed By: #### H IV12 #### [facility] [address] [place] [address] Dr. Valerio Alexis MONO # 0.6 103/ul Normal 0.3-0.8 [facility] Comment on above: Performed By: #### H IV12 #### [facility] [address] [place] [address] Dr. Valerio Alexis Monocytes/100 WBC (Bld) 9.2 % Normal 1.7-12.0 [facility] Comment on above: Performed By: #### H IV12 #### [facility] [address] [place] [address] Dr. Valerio Alexis NEUT # 4.1 103/ul Normal 1.4-6.5 [facility] Comment on above: Performed By: #### H IV12 #### [facility] [address] [place] [address] Dr. Valerio Alexis Neutrophils/100 WBC (Bld) 62.7 % Normal 43.0-75.0 [facility] Comment on above: Performed By: #### H IV12 #### [facility] [address] [place] [address] Dr. Valerio Alexis Platelet mean volume (Bld) [Entitic vol] 10.4 fL Normal 9.5-13.5 [facility] Comment on above: Performed By: #### H IV12 #### [facility] [address] [place] [address] Dr. Valerio Alexis PLT 254 103/ul Normal 150-450 [facility] Comment on above: Performed By: #### H IV12 #### [facility] [address] [place] [address] Dr. Valerio Alexis RBC 4.75 106/ul Normal 4.20-5.40 [facility] Comment on above: Performed By: #### H IV12 #### [facility] [address] [place] [address] Dr. Valerio Alexis WBC 6.5 103/ul Normal 4.0-11.0 [facility] Comment on above: Performed By: #### H IV12 #### [facility] [address] [place] [address] ABD/PELVIS WO CONon [...] MAHAD OLIVEROS Date: 2022-11-19 00:58 Normal [facility] ER URINE PROFILEon 3 Bilirubin Ql (U) Negative Normal NEGATIVE [facility] [place] Comment on above: Performed By: #### H H #### [facility] [address] [place] [address] Dr. Valerio Alexis Clarity (U) CLEAR Normal CLEAR [facility] Comment on above: Performed By: #### H H #### [facility] [address] [place] [address] Dr. Valerio Alexis Color (U) LT. YELLOW Normal YELLOW [facility] Comment on above: Performed By: #### H H #### [facility] [address] [place] [address] Dr. Valerio LIVEUmesh A micrscopic examination will be performed if indicated. Normal [facility] Comment on above: Performed By: #### H H #### [facility] [address] [place] [address] Dr. Valerio Alexis Glucose Ql (U) Negative Normal NEGATIVE [facility] Comment on above: Performed By: #### H H #### [facility] [address] [place] [address] Dr. Valerio Alexis Hemoglobin Ql (U) Negative Normal NEGATIVE [facility] Comment on above: Performed By: #### H H #### [facility] [address] [place] [address] Dr. Valerio Alexis Ketones Ql (U) Negative Normal NEGATIVE [facility] Comment on above: Performed By: #### H H #### [facility] [address] [place] [address] Dr. Valerio Alexis LEUKOCYTES Negative Normal NEGATIVE [facility] Comment on above: Performed By: #### H H #### [facility] [address] [place] [address] Dr. Valerio Alexis Nitrite Ql (U) Negative Normal NEGATIVE [facility] Comment on above: Performed By: #### H H #### [facility] [address] [place] [address] Dr. Valerio Alexis pH (U) 6.0 [pH] Normal 5-9 [facility] Comment on above: Performed By: #### H H #### [facility] [address] [place] [address] Dr. Valerio Alexis SPEC GRAVITY 1.010 Normal 1.005-<=1.025 [facility] Comment on above: Performed By: #### H H #### [facility] [address] [place] [address] Dr. Valerio Alexis UA PROTEIN Negative Normal NEGATIVE/ TRACE [facility] Comment on above: Performed By: #### H H #### [facility] [address] [place] [address] Dr. Valerio Alexis UR MICRO IND NOT INDICATED Normal [facility] Comment on above: Performed By: #### H H #### [facility] [address] [place] [address] Dr. Valerio Alexis Urobilinogen Qn (U) 0.2 {Nicolas'U}/dL Normal 0.2 - 1. 0 [facility] Comment on above: Performed By: #### H H #### [facility] [address] [place] [address] Dr. Valerio Alexis PROF CHEM 8 (BAS METB)on Anion gap [Moles/Vol] 12.1 mmol/L Normal [facility] Comment on above: Performed By: #### H H #### [facility] [address] [place], [place] [id number] Dr. Valerio Alexis Calcium [Mass/Vol] 9.2 mg/dL Normal 8.5-10.1 [facility] Comment on above: Performed By: #### H H #### [facility] [address] [place] [address] Dr. Valerio Alexis Chloride [Moles/Vol] 104 mmol/L Normal 98-107 [facility] Comment on above: Performed By: #### H H #### [facility] [address] [address] [address] Valerio Alexis CO2 [Moles/Vol] 27.0 mmol/L Normal 21.0-32.0 [facility] [place] Comment on above: Performed By: #### H H #### [facility] [address] [place] [address] Dr. Valerio Alexis Creatinine [Mass/Vol] 0.75 mg/dL Normal 0.55-1.02 [facility] Comment on above: Performed By: #### H H #### [facility] [address] [place] [address] Dr. Valerio Alexis EGFR-AF GAMBIAN >60 Normal >=60 [facility] [place] Comment on above: Performed By: #### H H #### [facility] [address] [place] [address] Dr. Valerio Alexis EGFR-NON AF GAMBIAN >60 Normal >=60 [facility] Comment on above: Performed By: #### H H #### [facility] [address] [place] [address] Dr. Valerio Alexis Glucose [Mass/Vol] 83 mg/dL Normal 74-106 [facility] Comment on above: Performed By: #### H H #### [facility] [address] [place] [address] Dr. Valerio Alexis Potassium [Moles/Vol] 4.1 mmol/L Normal 3.5-5.1 [facility] Comment on above: Performed By: #### H H #### [facility] [address] [place] [address] Dr. Valerio Alexis Sodium [Moles/Vol] 139 mmol/L Normal 136-145 [facility] Comment on above: Performed By: #### H H #### [facility] [address] [place] [address] Dr. Valerio Alexis Urea nitrogen [Mass/Vol] 16.0 mg/dL Normal 7.0-18.0 [facility] Comment on above: Performed By: #### H H #### [facility] [address] [place] [address] Dr. Valerio Alexis Urea nitrogen/Creatinine [Mass ratio] 21.3 mg/mg Normal [facility] Comment on above: Performed By: #### H H #### [facility] [address] [place] [address] Dr. Valerio Alexis CHLAMYDIA/GONOCOCCUS CHULA ( AB/URINE/PAPon 10-27-2022 Chlamydia trachomatis, CHULA Negative Normal Negative [facility] Comment on above: Performed By: #### N BOX #### [facility] [address] [place] [address] Dr. Valerio Alexis Neisseria gonorrhoeae, CHULA Negative Normal Negative [facility] Comment on above: Performed By: #### N BOX #### [facility] [address] [place] [address] Dr. Valerio Alexis VAGINITIS/VAGINOSIS DNA PROB Dane 10-26-2022 Ashley species Negative Normal Negative [facility] Comment on above: Performed By: #### R PRQ #### [facility] [address] [place] [address] Dr. Valerio Alexis Gardnerella vaginalis Positive Abnormal Negative [facility] Comment on above: Performed By: #### R PRQ #### [facility] [address] [place] [address] Dr. Valerio Alexis Trichomonas vaginalis Negative Normal Negative [facility] Comment on above: Performed By: #### R PRQ #### [facility] [address] [place] [address] Dr. Valerio Alexis MICRO OTHER TESTSOrdered By: Cesar Riggs on 09-27-2022 S. pyogenes Ag IA.rapid Ql (Throat) Negative (09/27/22 11:23 PM) Normal Negative [facility] Man Sero CBC AUTO DIFFon 08-25-2022 BASO # 0.0 103/ul Normal 0.0-0.1 [facility] Comment on above: Performed By: #### R PRQ #### [facility] [address] [address] [address] Valerio Alexis Basophils/100 WBC (Bld) 0.3 % Normal 0.2-2.0 [facility] Comment on above: Performed By: #### R PRQ #### [facility] [address] [address] [address] Valerio Alexis EO # 0.1 103/ul Normal 0.0-0.7 [facility] Comment on above: Performed By: #### R PRQ #### [facility] [address] [place] [address] Dr. Valerio Alexis Eosinophils/100 WBC (Bld) 0.7 % Critically low 0.9-7.0 [facility] Comment on above: Performed By: #### R PRQ #### [facility] [address] [address] [address] Valerio Alexis Erythrocyte distribution width (RBC) [Ratio] 13.6 % Normal 11.0-15.0 [facility] Comment on above: Performed By: #### R PRQ #### [facility] [address] [place] [address] Dr. Valerio Alexis Hematocrit (Bld) [Volume fraction] 28.2 % Critically low 36.0-48.0 [facility] Comment on above: Performed By: #### R PRQ #### [facility] [address] [place] [address] Dr. Valerio Alexis Hemoglobin (Bld) [Mass/Vol] 9.6 g/dL Critically low 12.0-16.0 [facility] Comment on above: Performed By: #### R PRQ #### [facility] [address] [place] [address] Dr. Valerio Alexis IG # 0.10 10e3/ul Critically high 0.00-0.03 [facility] Comment on above: Performed By: #### R PRQ #### [facility] [address] [address] [address] Valerio Alexis IG % 0.7 % Critically high 0.0-0.5 [facility] Comment on above: Performed By: #### R PRQ #### [facility] [address] [place] [address] Dr. Valerio Alexis LYMPH # 2.2 103/ul Normal 1.2-3.8 [facility] Comment on above: Performed By: #### R PRQ #### [facility] [address] [place] [address] Dr. Valerio Alexis Lymphocytes/100 WBC (Bld) 16.5 % Critically low 20.5-60.0 [facility] Comment on above: Performed By: #### R PRQ #### [facility] [address] [place] [address] Dr. Valerio Alexis MANUAL DIFF REQ NO Normal [facility] Comment on above: Performed By: #### R PRQ #### [facility] [address] [place] [address] Dr. Valerio Alexis MCH (RBC) [Entitic mass] 27.7 pg Normal 26.7-34.0 [facility] Comment on above: Performed By: #### R PRQ #### [facility] [address] [place] [address] Dr. Valerio Alexis MCHC (RBC) [Mass/Vol] 34.0 g/dL Normal 29.9-35.2 [facility] Comment on above: Performed By: #### R PRQ #### [facility] [address] [place] [address] Dr. Valerio Alexis MCV (RBC) [Entitic vol] 81.3 fL Normal 81.0-99.0 [facility] Comment on above: Performed By: #### R PRQ #### [facility] [address] [place] [address] Dr. Valerio Alexis MONO # 1.2 103/ul Critically high 0.3-0.8 [facility] Comment on above: Performed By: #### R PRQ #### [facility] [address] [address] [address] Valerio Alexis Monocytes/100 WBC (Bld) 8.7 % Normal 1.7-12.0 [facility] Comment on above: Performed By: #### R PRQ #### [facility] [address] [place] [address] Dr. Valerio Alexis NEUT # 9.9 103/ul Critically high 1.4-6.5 [facility] Comment on above: Performed By: #### R PRQ #### [facility] [address] [place] [address] Dr. Valerio Alexis Neutrophils/100 WBC (Bld) 73.1 % Normal 43.0-75.0 [facility] Comment on above: Performed By: #### R PRQ #### [facility] [address] [place] [address] Dr. Valerio Alexis Platelet mean volume (Bld) [Entitic vol] 9.9 fL Normal 9.5-13.5 [facility] Comment on above: Performed By: #### R PRQ #### [facility] [address] [place] [address] Dr. Valerio Alexis PLT 200 103/ul Normal 150-450 [facility] Comment on above: Performed By: #### R PRQ #### [facility] [address] [place] [address] Dr. Valerio Alexis RBC 3.47 106/ul Critically low 4.20-5.40 [facility] Comment on above: Performed By: #### R PRQ #### [facility] [address] [place] [address] Dr. Valerio Alexis WBC 13.5 103/ul Critically high 4.0-11.0 [facility] [place] Comment on above: Performed By: #### R PRQ #### [facility] [address] [place] [address] Dr. Valerio Alexis CBC AUTO DIFFon 08-24-2022 BASO # 0.0 103/ul Normal 0.0-0.1 [facility] Comment on above: Performed By: #### H H #### [facility] [address] [address] [address] Valerio Alexis Basophils/100 WBC (Bld) 0.3 % Normal 0.2-2.0 [facility] Comment on above: Performed By: #### H H #### [facility] [address] [address] [address] Valerio Alexis EO # 0.1 103/ul Normal 0.0-0.7 [facility] Comment on above: Performed By: #### H H #### [facility] [address] [address] [address] Valerio Alexis Eosinophils/100 WBC (Bld) 0.5 % Critically low 0.9-7.0 [facility] Comment on above: Performed By: #### H H #### [facility] [address] [place] [address] Dr. Valerio Alexis Erythrocyte distribution width (RBC) [Ratio] 13.2 % Normal 11.0-15.0 [facility] Comment on above: Performed By: #### H H #### [facility] [address] [place] [address] Dr. Valerio Alexis Hematocrit (Bld) [Volume fraction] 32.4 % Critically low 36.0-48.0 [facility] Comment on above: Performed By: #### H H #### [facility] [address] [place] [address] Dr. Valerio Alexis Hemoglobin (Bld) [Mass/Vol] 10.9 g/dL Critically low 12.0-16.0 [facility] Comment on above: Performed By: #### H H #### [facility] [address] [address] [address] Valerio Alexis IG # 0.07 10e3/ul Critically high 0.00-0.03 [facility] Comment on above: Performed By: #### H H #### [facility] [address] [address] [address] Valerio Alexis IG % 0.6 % Critically high 0.0-0.5 [facility] Comment on above: Performed By: #### H H #### [facility] [address] [address] [address] Valerio Alexis LYMPH # 2.0 103/ul Normal 1.2-3.8 [facility] Comment on above: Performed By: #### H H #### [facility] [address] [address] [address] Valerio Alexis Lymphocytes/100 WBC (Bld) 18.4 % Critically low 20.5-60.0 [facility] Comment on above: Performed By: #### H H #### [facility] [address] [place] [address] Dr. Valerio Alexis MANUAL DIFF REQ NO Normal [facility] Comment on above: Performed By: #### H H #### [facility] [address] [place] [address] Dr. Valerio Alexis MCH (RBC) [Entitic mass] 27.1 pg Normal 26.7-34.0 [facility] Comment on above: Performed By: #### H H #### [facility] [address] [place] [address] Dr. Valerio Alexis MCHC (RBC) [Mass/Vol] 33.6 g/dL Normal 29.9-35.2 [facility] Comment on above: Performed By: #### H H #### [facility] [address] [place] [address] Dr. Valerio Alexis MCV (RBC) [Entitic vol] 80.6 fL Critically low 81.0-99.0 [facility] Comment on above: Performed By: #### H H #### [facility] [address] [place] [address] Dr. Valerio Alexis MONO # 0.9 103/ul Critically high 0.3-0.8 [facility] Comment on above: Performed By: #### H H #### [facility] [address] [address] [address] Valerio Alexis Monocytes/100 WBC (Bld) 8.5 % Normal 1.7-12.0 [facility] Comment on above: Performed By: #### H H #### [facility] [address] [place] [address] Dr. Valerio Alexis NEUT # 7.7 103/ul Critically high 1.4-6.5 [facility] Comment on above: Performed By: #### H H #### [facility] [address] [address] [address] Valerio Alexis Neutrophils/100 WBC (Bld) 71.7 % Normal 43.0-75.0 [facility] Comment on above: Performed By: #### H H #### [facility] [address] [place] [address] Dr. Valerio Alexis Platelet mean volume (Bld) [Entitic vol] 9.8 fL Normal 9.5-13.5 [facility] Comment on above: Performed By: #### H H #### [facility] [address] [place] [address] Dr. Valerio Alexis PLT 273 103/ul Normal 150-450 [facility] Comment on above: Performed By: #### H H #### [facility] [address] [place] [address] Dr. Valerio Alexis RBC 4.02 106/ul Critically low 4.20-5.40 [facility] Comment on above: Performed By: #### H H #### [facility] [address] [place] [address] Dr. Valerio Alexis WBC 10.8 103/ul Normal 4.0-11.0 [facility] Comment on above: Performed By: #### H H #### [facility] [address] [place] [address] Dr. Valerio Alexis Covid-19 PCR ([facility])on 08-03 SARS-CoV-2 (COVID-19) RNA CHULA+probe Ql (Unsp spec) Not detected Normal NOT DETECTED [facility] Comment on above: Result Comment: When [...] for this test is supported by the Extension Service Advisor of Health and Human Service's declaration that [...] used). Performed By: #### H H #### [facility] [address] [place] [address] Dr. Valerio Alexis DRUG SCREEN RAPID (URINE)on 08-24-2022 AMP Negative Normal NEGATIVE [facility] Comment on above: Performed By: #### H H #### [facility] [address] [place] [address] Dr. Valerio Alexis BAR Negative Normal NEGATIVE [facility] Comment on above: Performed By: #### H H #### [facility] [address] [place] [address] Dr. Valerio Alexis BUP Negative Normal NEGATIVE [facility] Comment on above: Performed By: #### H H #### [facility] [address] [place] [address] Dr. Valerio Alexis BZO Negative Normal NEGATIVE [facility] Comment on above: Performed By: #### H H #### [facility] [address] [place] [address] Dr. Valerio Alexis WENDY Negative Normal NEGATIVE [facility] Comment on above: Performed By: #### H H #### [facility] [address] [place] [address] Dr. Valerio Alexis CUT-OFFS SEE BELOW Normal [facility] Comment on above: Result Comment: AMP [...] ng/mL Performed By: #### H H #### [facility] [address] [place] [address] Dr. Valerio Alexis DRUG CUT HEADER DRUG CLASS TEST SYSTEM CUT-OFF CONCENTRATIONS ARE FOLLOWS: Normal [facility] Comment on above: Performed By: #### H H #### [facility] [address] [place] [address] Dr. Valerio Alexis mAMP Negative Normal NEGATIVE [facility] Comment on above: Performed By: #### H H #### [facility] [address] [place] [address] Dr. Valerio Alexis MTD Negative Normal NEGATIVE [facility] Comment on above: Performed By: #### H H #### [facility] [address] [place] [address] Dr. Valerio Alexsi OPI Negative Normal NEGATIVE [facility] Comment on above: Performed By: #### H H #### [facility] [address] [place] [address] Dr. Valerio Alexis OXY Negative Normal NEGATIVE [facility] Comment on above: Performed By: #### H H #### [facility] [address] [place] [address] Dr. Valerio Alexis PCP Negative Normal NEGATIVE [facility] Comment on above: Performed By: #### H H #### [facility] [address] [place] [address] Dr. Valerio Alexis PPX Negative Normal NEGATIVE [facility] Comment on above: Performed By: #### H H #### [facility] [address] [place] [address] Dr. Valerio Alexis TCA Negative Normal NEGATIVE [facility] Comment on above: Performed By: #### H H #### [facility] [address] [place] [address] Dr. Valerio Alexis THC Negative Normal NEGATIVE [facility] Comment on above: Performed By: #### H H #### [facility] [address] [place] [address] Dr. Valerio Alexis TYPE AND SCREENon 08-24-2022 TYPE AND SCREEN Negative Normal [facility] Comment on above: Performed By: #### T NS #### [facility] [address] [address] [address] Valerio Alexis US PREG BIOPHY W NON STRESSo n 08-22-2022 US PREG BIOPHY W NON STRESS EXAMINATION: US PREG BIOPHY W NON STRESS HISTORY: [id number] baby COMPARISON: 08/16/2022 TECHNIQUE: Ultrasound biophysical profile was performed in the radiology department. FINDINGS: BREATHING MOVEMENTS: 2.0 GROSS BODY MOVEMENTS: 2.0 TONE: 2.0 QUALITATIVE AMNIOTIC FLUID VOLUME: 2.0 PRESENTATION: Cephalic HEART RATE: 137.8 bpm H.B./min AMNIOTIC FLUID VOLUME: 10.3 cm cm GESTATIONAL AGE: 38 weeks 5 days CONCLUSION: Total biophysical profile score: 8.0 Electronically authenticated by: LEE CLAY Date: 2022-08-22 13:46 Normal [facility] US PREG UMBILICAL ARTERYon 1 10-22-2021 US PREG UMBILICAL ARTERY EXAMINATION: US PREG UMBILICAL ARTERY HISTORY: [id number]-[id number]-[id number] baby COMPARISON: No relevant comparison available. TECHNIQUE: [...] by: LEE CLAY Date: 2022-08-22 13:48 Normal [facility] US PREG BIOPHY W NON STRESSo n 08-17-2022 PREG BIOPHY W NON STRESS EXAMINATION: US PREG BIOPHY W NON STRESS HISTORY: [id number] baby COMPARISON: Ultrasound biophysical 08/15/2022 TECHNIQUE: Ultrasound biophysical profile was performed. FINDINGS: IMPRESSION: BREATHING MOVEMENTS: 2.0 GROSS BODY MOVEMENTS: 2.0 TONE: 2.0 QUALITATIVE AMNIOTIC FLUID VOLUME: 2.0 PRESENTATION: Cephalic HEART RATE: 142.9 bpm bpm. AMNIOTIC FLUID VOLUME: 12.7 cm GESTATIONAL AGE: 37 weeks 6 days CONCLUSION: Total biophysical profile score 8.0. Electronically authenticated by: TEAGAN ENRIQUE Date: 2022-08-17 06:47 Normal [facility] US PREG BIOPHY W NON STRESSo n [...] by: LEE CLAY Date: 2022-08-15 16:37 Normal [facility] US PREG UMBILICAL ARTERYon 1 10-15-2021 US PREG UMBILICAL ARTERY EXAM: US PREG UMBILICAL ARTERY HISTORY: [id number] baby EXAMINATION: US PREG UMBILICAL ARTERY HISTORY: [id number]-oin-[id number] baby COMPARISON: No relevant comparison available. TECHNIQUE: [...] by: LEE CLAY Date: 2022-08-15 16:55 Normal [facility] US PREG BIOPHY W NON STRESSo n [...] by: LEE CLAY Date: 2022-08-08 16:59 Normal [facility] US PREG UMBILICAL ARTERYon 1 10-08-2021 US PREG UMBILICAL ARTERY EXAM: US PREG UMBILICAL ARTERY HISTORY: [id number]-[id number] baby COMPARISON: 08/01/2022 TECHNIQUE: Grayscale, color and [...] LEE CLAY Date: 2022-08-08 17:03 Normal [facility] BUNon 08-05-2022 Urea nitrogen [Mass/Vol] 11.0 mg/dL Normal 7.0-18.0 [facility] Comment on above: Performed By: #### N BOX #### [facility] [address] [address] [address] Valerio Alexis CBC AUTO DIFFon 08-05-2022 BASO # 0.0 103/ul Normal 0.0-0.1 [facility] Comment on above: Performed By: #### N BOX #### [facility] [address] [address] [address] Valerio Alexis Basophils/100 WBC (Bld) 0.3 % Normal 0.2-2.0 [facility] Comment on above: Performed By: #### N BOX #### [facility] [address] [place] [address] Dr. Valerio Alexis EO # 0.0 103/ul Normal 0.0-0.7 [facility] Comment on above: Performed By: #### N BOX #### [facility] [address] [place] [address] Dr. Valerio Alexis Eosinophils/100 WBC (Bld) 0.3 % Critically low 0.9-7.0 [facility] Comment on above: Performed By: #### N BOX #### [facility] [address] [place] [address] Dr. Valerio Alexis Erythrocyte distribution width (RBC) [Ratio] 12.9 % Normal 11.0-15.0 [facility] Comment on above: Performed By: #### N BOX #### [facility] [address] [place] [address] Dr. Valerio Alexis Hematocrit (Bld) [Volume fraction] 33.3 % Critically low 36.0-48.0 [facility] Comment on above: Performed By: #### N BOX #### [facility] [address] [place] [address] Dr. Valerio Alexis Hemoglobin (Bld) [Mass/Vol] 11.0 g/dL Critically low 12.0-16.0 [facility] Comment on above: Performed By: #### N BOX #### [facility] [address] [place] [address] Dr. Valerio Alexis IG # 0.14 10e3/ul Critically high 0.00-0.03 [facility] Comment on above: Performed By: #### N BOX #### [facility] [address] [place] [address] Dr. Valerio Alexis IG % 0.9 % Critically high 0.0-0.5 [facility] Comment on above: Performed By: #### N BOX #### [facility] [address] [place] [address] Dr. Valerio Alexis LYMPH # 1.4 103/ul Normal 1.2-3.8 [facility] Comment on above: Performed By: #### N BOX #### [facility] [address] [place] [address] Dr. Valerio Alexis Lymphocytes/100 WBC (Bld) 8.8 % Critically low 20.5-60.0 [facility] Comment on above: Performed By: #### N BOX #### [facility] [address] [place] [address] Dr. Valerio Alexis MANUAL DIFF REQ NO Normal [facility] Comment on above: Performed By: #### N BOX #### [facility] [address] [place] [address] Dr. Valerio Alexis MCH (RBC) [Entitic mass] 27.8 pg Normal 26.7-34.0 [facility] Comment on above: Performed By: #### N BOX #### [facility] [address] [place] [address] Dr. Valerio Alexis MCHC (RBC) [Mass/Vol] 33.0 g/dL Normal 29.9-35.2 [facility] Comment on above: Performed By: #### N BOX #### [facility] [address] [place] [address] Dr. Valerio Alexis MCV (RBC) [Entitic vol] 84.3 fL Normal 81.0-99.0 [facility] Comment on above: Performed By: #### N BOX #### [facility] [address] [place] [address] Dr. Vaelrio Alexis MONO # 1.1 103/ul Critically high 0.3-0.8 [facility] Comment on above: Performed By: #### N BOX #### [facility] [address] [place] [address] Dr. Valerio Alexis Monocytes/100 WBC (Bld) 7.0 % Normal 1.7-12.0 [facility] Comment on above: Performed By: #### N BOX #### [facility] [address] [place] [address] Dr. Valerio Alexis NEUT # 13.1 103/ul Critically high 1.4-6.5 [facility] Comment on above: Performed By: #### N BOX #### [facility] [address] [address] [address] Valerio Alexis Neutrophils/100 WBC (Bld) 82.7 % Critically high 43.0-75.0 [facility] Comment on above: Performed By: #### N BOX #### [facility] [address] [address] [address] Valerio Alexis Platelet mean volume (Bld) [Entitic vol] 10.8 fL Normal 9.5-13.5 [facility] Comment on above: Performed By: #### N BOX #### [facility] [address] [address] [address] Valerio Alexis PLT 202 103/ul Normal 150-450 [facility] Comment on above: Performed By: #### N BOX #### [facility] [address] [address] [address] Valerio Alexis RBC 3.95 106/ul Critically low 4.20-5.40 [facility] Comment on above: Performed By: #### N BOX #### [facility] [address] [address] [address] Valerio Alexis WBC 15.9 103/ul Critically high 4.0-11.0 [facility] Comment on above: Performed By: #### N BOX #### [facility] [address] [place] [address] Dr. Valerio Alexis CREATININEon 08-05-2022 Creatinine [Mass/Vol] 0.64 mg/dL Normal 0.55-1.02 [facility] Comment on above: Performed By: #### N BOX #### [facility] [address] [address] [address] Valerio Alexis EGFR-AF GAMBIAN >60 Normal >=60 [facility] Comment on above: Performed By: #### N BOX #### [facility] [address] [address] [address] Valerio Alexis EGFR-NON AF GAMBIAN >60 Normal >=60 [facility] Comment on above: Performed By: #### N BOX #### [facility] [address] [place] [address] Dr. Valerio Alexis CULTURE URINEon 08-05-2022 CULTURE URINE Culture Observations: LIGHT GROWTH OF MIXED GENITAL RICK. NO POTENTIAL PATHOGENS SEEN. Normal [facility] Comment on above: Performed By: #### N BOX #### [facility] [address] [place] [address] Dr. Valerio Alexis UA (CLEAN/CATCH) WIRE FRAME MAKER/MICRO I F IND.on 08-05-2022 Bilirubin Ql (U) Negative Normal NEGATIVE [facility] Comment on above: Performed By: #### N BOX #### [facility] [address] [place] [address] Dr. Valerio Alexis Clarity (U) CLEAR Normal CLEAR [facility] Comment on above: Performed By: #### N BOX #### [facility] [address] [place] [address] Dr. Valerio Alexis Color (U) LT. YELLOW Normal YELLOW [facility] Comment on above: Performed By: #### N BOX #### [facility] [address] [place] [address] Dr. Valerio Alexis Glucose Ql (U) Negative Normal NEGATIVE [facility] Comment on above: Performed By: #### N BOX #### [facility] [address] [place] [address] Dr. Valerio Alexis Hemoglobin Ql (U) LARGE Abnormal NEGATIVE [facility] Comment on above: Performed By: #### N BOX #### [facility] [address] [place] [address] Dr. Valerio Alexis Ketones Ql (U) Negative Normal NEGATIVE [facility] Comment on above: Performed By: #### N BOX #### [facility] [address] [place] [address] Dr. Valerio Alexis LEUKOCYTES SMALL Abnormal NEGATIVE [facility] Comment on above: Performed By: #### N BOX #### [facility] [address] [place] [address] Dr. Valerio Alexis Nitrite Ql (U) Positive Abnormal NEGATIVE [facility] Comment on above: Performed By: #### N BOX #### [facility] [address] [place] [address] Dr. Valerio Alexis pH (U) 6.5 [pH] Normal 5-9 [facility] Comment on above: Performed By: #### N BOX #### [facility] [address] [place] [address] Dr. Valerio Alexis SPEC GRAVITY 1.020 Normal 1.005-<=1.025 [facility] Comment on above: Performed By: #### N BOX #### [facility] [address] [place] [address] Dr. Valerio Alexis UA PROTEIN 30 mg/dl Abnormal NEGATIVE/ TRACE [facility] Comment on above: Performed By: #### N BOX #### [facility] [address] [place] [address] Dr. Valerio Alexis UR MICRO IND INDICATED Normal [facility] Comment on above: Performed By: #### N BOX #### [facility] [address] [place] [address] Dr. Valerio Alexsi Urobilinogen Qn (U) 0.2 {Nicolas'U}/dL Normal 0.2 - 1. 0 [facility] Comment on above: Performed By: #### N BOX #### [facility] [address] [place] [address] Dr. Valerio Alexis URINE MICROSCOPIC ONLYon BACTERIA TRACE Abnormal NONE SEEN [facility] Comment on above: Performed By: #### N BOX #### [facility] [address] [place] [address] Dr. Valerio Alexis Bacteria identified Cx Nom (U) INDICATED Normal [facility] Comment on above: Performed By: #### N BOX #### [facility] [address] [place] [address] Dr. Valerio Alexis CAST NONE SEEN Normal NONE SEEN [facility] Comment on above: Performed By: #### N BOX #### [facility] [address] [place] [address] Dr. Valerio Alexis Crystals LM Nom (Urine sed) NONE SEEN Normal NONE SEEN [facility] Comment on above: Performed By: #### N BOX #### [facility] [address] [address] [address] Valerio Alexis Epithelial cells LM Ql (Urine sed) RARE Normal NONE SEEN /RARE [facility] Comment on above: Performed By: #### N BOX #### [facility] [address] [address] [address] Valerio Alexis MUCOUS NONE SEEN Normal NONE SEEN [facility] Comment on above: Performed By: #### N BOX #### [facility] [address] [address] [address] Valerio Alexis RBC NONE SEEN Abnormal 0-2 [facility] Comment on above: Performed By: #### N BOX #### [facility] [address] [place] [address] Dr. Valerio Alexis WBC 5-10 Abnormal NONE SEEN [facility] Comment on above: Performed By: #### N BOX #### [facility] [address] [place] [address] Dr. Valerio Alexis GROUP B STREP CULTUREon S. agalactiae Ag Ql (Unsp spec) Culture Observations: NEGATIVE FOR GROUP B STREPTOCOCCUS. Normal [facility] Comment on above: Performed By: #### G BSCX #### [facility] [address] [place] [address] Dr. Valerio Alexis US PREG BIOPHY W [...] TEAGAN ENRIQUE Date: 2022-08-02 05:48 Normal [facility] US PREG UMBILICAL ARTERYon 1 10-02-2021 US PREG UMBILICAL ARTERY EXAMINATION: US PREG UMBILICAL ARTERY HISTORY: [id number]-[id number]-[id number] baby COMPARISON: Ultrasound umbilical artery 07/28/2022 TECHNIQUE: [...] by: TEAGAN ENRIQUE Date: 2022-08-02 05:54 Normal [facility] US PREG BIOPHYSICAL NO NSTon 07-28-2022 US [...] by: TEAGAN ENRIQUE Date: 2022-07-28 16:40 Normal [facility] US PREG GROWTHon 07-28-2022 US PREG GROWTH [...] 3. Dr. Harding was notified by the [place] planning manager at time of imaging. Electronically authenticated by: TEAGAN ENRIQUE Date: 2022-07-28 16:48 Normal [facility] US PREG UMBILICAL ARTERYon 1 US PREG [...] by: TEAGAN ENRIQUE Date: 2022-07-28 13:25 Normal [facility] US PREG BIOPHY W NON STRESSo n [...] by: TEAGAN ENRIQUE Date: 2022-07-26 16:06 Normal [facility] US PREG BIOPHY W NON STRESS EXAMINATION: [...] by: LEE CLAY Date: 2022-07-26 07:14 Normal [facility] US PREG BIOPHY W NON STRESSo n [...] by: TEAGAN ENRIQUE Date: 2022-07-19 20:21 Normal [facility] US PREG GROWTHon 07-13-2022 US PREG GROWTH [...] Dr. Harding notified of low weight by [place]ap[place] planning manager at time of imaging. Electronically authenticated by: TEAGAN ENRIQUE Date: 2022-07-12 22:01 Normal [facility] GLUCOSE - 1HRon 05-31-2022 Glucose [Mass/Vol] 110 mg/dL Critically high 74-[address] [facility] Comment on above: Performed By: #### R PRQ #### [facility] [address] [place] [address] Dr. Valerio Alexis HEMOGRAM AND PLATELon 2021 Hematocrit (Bld) [Volume fraction] 31.6 % Critically low 36.0-48.0 [facility] Comment on above: Performed By: #### H H #### [facility] [address] [place] [address] Dr. Valerio Alexis Hemoglobin (Bld) [Mass/Vol] 10.7 g/dL Critically low 12.0-16.0 [facility] Comment on above: Performed By: #### H H #### [facility] [address] [place] [address] Dr. Valerio Alexis MCH (RBC) [Entitic mass] 29.7 pg Normal 26.7-34.0 [facility] Comment on above: Performed By: #### H H #### [facility] [address] [place] [address] Dr. Valerio Alexis MCHC (RBC) [Mass/Vol] 33.9 g/dL Normal 29.9-35.2 [facility] Comment on above: Performed By: #### H H #### [facility] [address] [place] [address] Dr. Valerio Alexis MCV (RBC) [Entitic vol] 87.8 fL Normal 81.0-99.0 [facility] Comment on above: Performed By: #### H H #### [facility] [address] [place] [address] Dr. Valerio Alexis PLT 179 103/ul Normal 150-450 [facility] Comment on above: Performed By: #### H H #### [facility] [address] [place] [address] Dr. Valerio Alexis RBC 3.60 106/ul Critically low 4.20-5.40 [facility] Comment on above: Performed By: #### H H #### [facility] [address] [place] [address] Dr. Valerio Alexis WBC 8.9 103/ul Normal 4.0-11.0 [facility] Comment on above: Performed By: #### H H #### [facility] [address] [place] [address] Dr. Valerio Alexis CHLAMYDIA/GONOCOCCUS CHULA (SW AB/URINE/PAPon 05-21-2022 Chlamydia trachomatis, CHULA Negative Normal Negative [facility] Comment on above: Performed By: #### R PRQ #### [facility] [address] [place] [address] Dr. Valerio Alexis Neisseria gonorrhoeae, CHULA Negative Normal Negative [facility] Comment on above: Performed By: #### R PRQ #### [facility] [address] [place] [address] Dr. Valerio Alexis VAGINITIS/VAGINOSIS DNA PROB Dane 05-21-2022 Ashley species Negative Normal Negative [facility] Comment on above: Performed By: #### H IV12 #### [facility] [address] [place] [address] Dr. Valerio Alexis Gardnerella vaginalis Positive Abnormal Negative [facility] Comment on above: Performed By: #### H IV12 #### [facility] [address] [place] [address] Dr. Valerio Alexis Trichomonas vaginalis Negative Normal Negative [facility] Comment on above: Performed By: #### H IV12 #### [facility] [address] [place] [address] Dr. Valerio Alexis HEPATITIS PANEL, ACUTEon HBsAg Screen Negative Normal Negative [facility] Comment on above: Performed By: #### R PRQ #### [facility] [address] [place] [address] Dr. Valerio Alexis HCV AB <0.1 Normal 0.0-0.9 [facility] Comment on above: Performed By: #### R PRQ #### [facility] [address] [place] [address] Dr. Valerio Alexis Hep A Ab, IgM Negative Normal Negative [facility] Comment on above: Performed By: #### R PRQ #### [facility] [address] [address] [address] Valerio Alexis Hep B Core Ab, IgM Negative Normal Negative [facility] Comment on above: Performed By: #### R PRQ #### [facility] [address] [address] [address] Valerio Alexis Interpretation: Comment Normal [facility] Comment on above: Result Comment: Nega tive Not infected with HCV, unless recent infection is suspected or other evidence exists to indicate HCV infection. Performed By: #### R PRQ #### [facility] [address] [place] [address] Dr. Valerio Alexis HIV 1 AND 2 WITH REFLEXon HIV Screen 4th Generation wRfx Non-Reactive Normal Non Reactive [facility] Comment on above: Result Comment: HIV Negative HIV-1/HIV-2 antibodies and HIV-1 p24 antigen were NOT detected. There is no laboratory evidence of HIV infection. Performed By: #### N BOX #### [facility] [address] [place] [address] Dr. Valerio Alexis RPR QUANTon 05-20-2022 Rapid Plasma Reagin, Quant Non-Reactive Normal NonRea<1:1 [facility] Comment on above: Result Comment: Plea se Note: This test does not meet current guidelines for screening and diagnosis of syphilis. This test is intended for following treatment response in patients being treated for syphilis infection. To screen for syphilis infection, a reflex cascade that includes both RPR and a treponema-specific assay should be utilized, such as Treponema pallidum (Syphilis) Screening [place] ([id number]) or Rapid Plasma Reagin (RPR) Test With Reflex to Quantitative RPR and Confirmatory Treponema pallidum Antibodies ([id number]). Performed By: #### R PRQ #### [facility] [address] [place] [address] Dr. Valerio Alexis CULTURE URINEon 05-19-2022 CULTURE URINE Culture Observations: HEAVY GROWTH OF MIXED GENITAL RICK. NO POTENTIAL PATHOGENS SEEN. Normal [facility] Comment on above: Performed By: #### U RCX #### [facility] [address] [place] [address] Dr. Valerio Alexis CULTURE URINEon 05-18-2022 CULTURE URINE Culture Observations: LIGHT GROWTH OF MIXED GENITAL RICK. NO POTENTIAL PATHOGENS SEEN. Normal [facility] Comment on above: Performed By: #### U RCX #### [facility] [address] [address] [address] Valerio Alexis AFP MATERNAL FOR SPINA BIFID Aon 04-30-2022 AFP MoM 1.13 Normal [facility] Comment on above: Performed By: #### R PRQ #### [facility] [address] [address] [address] Valerio Alexis AFP Value 94.7 ng/mL Normal [facility] Comment on above: Performed By: #### R PRQ #### [facility] [address] [address] [address] Valerio Alexis AFP, Serum for Spina Bifida Report Normal [facility] Comment on above: Performed By: #### R PRQ #### [facility] [address] [address] [address] Valerio Alexis Comment Comment Normal [facility] Comment on above: Result Comment: Willa Domínguez, Ph.D., [facility] Director . References: Available Upon Request. . Multiples Of Median Cutoffs For AFP Elevations [place]a 2.5 Black 2.8 IDD 2.0 Twins 4.5 Abbreviation Definitions IDD - Insulin Dep Diabetes OSBR - Open Spina Bifida Risk . For further inquiries contact [employer] [facility] at [phone]. . This test was developed and its performance characteristics determined by [employer]. It has not been cleared or approved by the Food and Drug Administration. Performed By: #### R PRQ #### [facility] [address] [address] [address] Valerio Georges Age Collection Date 20.9 weeks Normal [facility] Comment on above: Performed By: #### R PRQ #### [facility] [address] [address] [address] Valerio Alexis Gestat, Age Based on JOSE [facility] Comment on above: Result Comment: 08/04 Recalculations are not recommended when gestational dating by LMP and ultrasound are within 10 days. Performed By: #### R PRQ #### [facility] [address] [address] [address] Valerio Alexis Insulin Dep Diabetes No Normal [facility] Comment on above: Performed By: #### R PRQ #### [facility] [address] [address] [address] Valerio Alexis Interpretation Comment Normal [facility] Comment on above: Result Comment: Inte [...] Customer Services to discuss available options. The [employer] recommends amniocentesis be offered to women age 35 and older. Performed By: #### R PRQ #### [facility] [address] [place] [address] Dr. Valerio Alexis [age] Normal [facility] Comment on above: Performed By: #### R PRQ #### [facility] [address] [place] [address] Dr. Valerio Alexis Multiple Gestation No Normal [facility] Comment on above: Performed By: #### R PRQ #### [facility] [address] [place] [address] Dr. Valerio Alexis OSBR Risk 1 IN 8106 [facility] Comment on above: Performed By: #### R PRQ #### [facility] [address] [place] [address] Dr. Valerio Alexis PDF . [facility] Comment on above: Performed By: #### R PRQ #### [facility] [address] [place] [address] Dr. Valerio Alexis Race [facility] Comment on above: Performed By: #### R PRQ #### [facility] [address] [address] [address] Valerio Alexis Test Results: Negative Normal [facility] Comment on above: Performed By: #### R PRQ #### [facility] [id number] Valerio Alexis US PREG ANATOMY SINGLEon [...] TEAGAN ENRIQUE Date: 2022-04-20 20:07 Normal [facility] CHLAMYDIA/GONOCOCCUS CHULA (SW AB/URINE/PAPon 03-26-2022 Chlamydia trachomatis, CHULA Negative Normal Negative [facility] Comment on above: Performed By: #### R PRQ #### [facility] [address] [address] [address] Valerio Alexis Neisseria gonorrhoeae, CHULA Negative Normal Negative [facility] Comment on above: Performed By: #### R PRQ #### [facility] [address] [address] [address] Valerio Alexis VAGINITIS/VAGINOSIS DNA PROB Dane 03-25-2022 Ashley species Positive Abnormal Negative [facility] Comment on above: Performed By: #### R PRQ #### [facility] [address] [address] [address] Valerio Alexis Gardnerella vaginalis Positive Abnormal Negative [facility] Comment on above: Performed By: #### R PRQ #### [facility] [address] [address] [address] Valerio Alexis Trichomonas vaginalis Negative Normal Negative [facility] Comment on above: Performed By: #### R PRQ #### [facility] [address] [place] [address] Dr. Valerio Alexis Covid-19 PCR (CVDTBH)on 01-31 SARS-CoV-2 (COVID-19) RNA CHULA+probe Ql (Unsp spec) Detected Critically abnormal NOT DETECTED [facility] Comment on above: Result Comment: This test is not yet approved or cleared by the [place] FDA. When there are no FDA-approved or cleared tests available, and other criteria are met, FDA can make tests available under an emergency access mechanism called an Emergency Use Authorization (EUA). The EUA for this test is supported by the Extension Service Advisor of Health and Human Service's declaration that [...] used). Performed By: #### C VDTBH #### [facility] [address] [place] [address] Dr. Valerio Alexis US PREG TVon 02-16-2022 [...] by: TEAGAN ENRIQUE Date: 2022-02-16 13:14 Normal [facility] CHEMISTRYOrdered By: Roberto Garsia on 02-15-2022 HCG.beta subunit Qn [id number] m[IU]/mL High 1 - 3 mIU/m L [facility] Chem S HEP B SURFACE ANTIGEN SCREEN on 02-12-2022 HBsAg Screen Negative Normal Negative [facility] Comment on above: Performed By: #### H H #### [facility] [address] [address] [address] Valerio Alexis HEPATITIS C VIRUS AB W/ REFL EX QUANTon 02-12-2022 HCV AB 0.1 s/co ratio Normal 0.0-0.9 [facility] Comment on above: Performed By: #### H H #### [facility] [address] [address] [address] Valerio Alexis Interpretation: Comment Normal [facility] Comment on above: Result Comment: Nega tive Not infected with HCV, unless recent infection is suspected or other evidence exists to indicate HCV infection. Performed By: #### H H #### [facility] [address] [address] [address] Valerio Alexis HIV 1 AND 2 WITH REFLEXon HIV Screen 4th Generation wRfx Non-Reactive Normal Non Reactive [facility] Comment on above: Result Comment: HIV Negative HIV-1/HIV-2 antibodies and HIV-1 p24 antigen were NOT detected. There is no laboratory evidence of HIV infection. Performed By: #### H IV12 #### [facility] [address] [place] [address] Dr. Valerio Alexis RPR QUANTon 02-12-2022 Rapid Plasma Reagin, Quant Non-Reactive Normal NonRea<1:1 [facility] Comment on above: Result Comment: Plea se Note: This test does not meet current guidelines for screening and diagnosis of syphilis. This test is intended for following treatment response in patients being treated for syphilis infection. To screen for syphilis infection, a reflex cascade that includes both RPR and a treponema-specific assay should be utilized, such as Treponema pallidum (Syphilis) Screening [place] (447237) or Rapid Plasma Reagin (RPR) Test With Reflex to Quantitative RPR and Confirmatory Treponema pallidum Antibodies (191423). Performed By: #### U RCX #### [facility] [address] [place] [address] Dr. Valerio Alexis RUBELLA AB IGGon 02-12-2022 Rubella Antibodies, IgG 1.88 index Normal Immune >0.99 [facility] Comment on above: Result Comment: Non- immune <0.90 Equivocal 0.90 - 0.99 Immune >0.99 Performed By: #### H H #### [facility] [address] [place] [address] Dr. Valerio Alexis CBC AUTO DIFFon 02-11-2022 BASO # 0.0 103/ul Normal 0.0-0.1 [facility] Comment on above: Performed By: #### H H #### [facility] [address] [place] [address] Dr. Valerio Alexis Basophils/100 WBC (Bld) 0.3 % Normal 0.2-2.0 [facility] Comment on above: Performed By: #### H H #### [facility] [address] [place] [address] Dr. Valerio Alexis EO # 0.1 103/ul Normal 0.0-0.7 [facility] Comment on above: Performed By: #### H H #### [facility] [address] [place] [address] Dr. Valerio Alexis Eosinophils/100 WBC (Bld) 0.9 % Normal 0.9-7.0 [facility] Comment on above: Performed By: #### H H #### [facility] [address] [place] [address] Dr. Valerio Alexis Erythrocyte distribution width (RBC) [Ratio] 12.8 % Normal 11.0-15.0 [facility] Comment on above: Performed By: #### H H #### [facility] [address] [place] [address] Dr. Valerio Alexis Hematocrit (Bld) [Volume fraction] 37.6 % Normal 36.0-48.0 [facility] Comment on above: Performed By: #### H H #### [facility] [address] [place] [address] Dr. Valerio Alexis Hemoglobin (Bld) [Mass/Vol] 12.5 g/dL Normal 12.0-16.0 [facility] Comment on above: Performed By: #### H H #### [facility] [address] [place] [address] Dr. Valerio Alexis IG # 0.04 10e3/ul Critically high 0.00-0.03 [facility] Comment on above: Performed By: #### H H #### [facility] [address] [place] [address] Dr. Valerio Alexis IG % 0.6 % Critically high 0.0-0.5 [facility] Comment on above: Performed By: #### H H #### [facility] [address] [place] [address] Dr. Valerio Alexis LYMPH # 1.5 103/ul Normal 1.2-3.8 [facility] Comment on above: Performed By: #### H H #### [facility] [address] [place] [address] Dr. Valerio Alexis Lymphocytes/100 WBC (Bld) 21.9 % Normal 20.5-60.0 [facility] Comment on above: Performed By: #### H H #### [facility] [address] [place] [address] Dr. Valerio Alexis MANUAL DIFF REQ NO Normal [facility] Comment on above: Performed By: #### H H #### [facility] [address] [place] [address] Dr. Valerio Alexis MCH (RBC) [Entitic mass] 29.0 pg Normal 26.7-34.0 [facility] Comment on above: Performed By: #### H H #### [facility] [address] [place] [address] Dr. Valerio Alexis MCHC (RBC) [Mass/Vol] 33.2 g/dL Normal 29.9-35.2 [facility] Comment on above: Performed By: #### H H #### [facility] [address] [place] [address] Dr. Valerio Alexis MCV (RBC) [Entitic vol] 87.2 fL Normal 81.0-99.0 [facility] Comment on above: Performed By: #### H H #### [facility] [address] [place] [address] Dr. Valerio Alexis MONO # 0.5 103/ul Normal 0.3-0.8 [facility] Comment on above: Performed By: #### H H #### [facility] [address] [place] [address] Dr. Valerio Alexis Monocytes/100 WBC (Bld) 6.7 % Normal 1.7-12.0 [facility] Comment on above: Performed By: #### H H #### [facility] [address] [place] [address] Dr. Valerio Alexis NEUT # 4.9 103/ul Normal 1.4-6.5 [facility] Comment on above: Performed By: #### H H #### [facility] [address] [place] [address] Dr. Valerio Alexis Neutrophils/100 WBC (Bld) 69.6 % Normal 43.0-75.0 [facility] Comment on above: Performed By: #### H H #### [facility] [address] [place] [address] Dr. Valerio Alexis Platelet mean volume (Bld) [Entitic vol] 10.8 fL Normal 9.5-13.5 [facility] Comment on above: Performed By: #### H H #### [facility] [address] [address] [address] Valerio Alexis PLT 183 103/ul Normal 150-450 [facility] Comment on above: Performed By: #### H H #### [facility] [address] [address] [address] Valerio Alexis RBC 4.31 106/ul Normal 4.20-5.40 [facility] Comment on above: Performed By: #### H H #### [facility] [address] [address] [address] Valerio Alexis WBC 7.0 103/ul Normal 4.0-11.0 [facility] Comment on above: Performed By: #### H H #### [facility] [address] [place] [address] Dr. Valerio Alexis CULTURE URINEon 02-11-2022 CULTURE URINE Culture Observations: NO GROWTH. Normal [facility] Comment on above: Performed By: #### U RCX #### [facility] [address] [address] [address] Valerio Alexis GLYCOHEMOGLOBIN A1Con 2021 ADA RECOMMENDATION SEE BELOW Normal [facility] Comment on above: Result Comment: ADA RECOMMENDED LIMIT 4.0 - 6.0 ADA THERAPEUTIC TARGET < 7.0 ACTION SUGGESTED > 7.0 Performed By: #### H H #### [facility] [address] [place] [address] Dr. Valerio Alexis Glucose [Mass/Vol] 88 mg/dL Normal [facility] Comment on above: Performed By: #### H H #### [facility] [address] [address] [address] Valerio Alexis HbA1c (Bld) [Mass fraction] 4.7 % Normal 4.5-6.2 [facility] Comment on above: Performed By: #### H H #### [facility] [address] [place] [address] Dr. Valerio Alexis ASTER BOX TEST PT SEND OUTo n 02-11-2022 SENT TO REF LAB 02/11/2022 Normal [facility] Comment on above: Performed By: #### N BOX #### [facility] [address] [place], [place] [address] Dr. Valerio Alexis TYPE AND SCREENon 02-11-2022 TYPE AND SCREEN Negative Normal [facility] Comment on above: Performed By: #### N BOX #### [facility] [address] [place], [place] [address] Dr. Valerio Alexis US PREG TVon 01-26-2022 [...] by: TEAGAN ENRIQUE Date: 2022-01-26 09:46 Normal [facility] PROGRESSon 11-20-2019 PROGRESS HNO ID: [id number] Author: Jose Luis Quispe Service: ? Author Type: SUPERVISOR CELL MAINTENANCE Type: Progress Notes Filed: 11/20/2019 4:36 PM [...] with all of its relevant components. Normal [facility] TSHon 06-11-2018 Thyrotropin Qn 3.104 uIU/mL Normal 0.350-5.500 [place] Comment on above: Performed By: #### T SH ####[address] [phone] Comp Metabolic Panelon 06-09 Albumin mass conc 4.6 g/dL High 3.2-4.5 [place] Comment on above: Performed By: #### C MP ####[address] [phone] ALP enzyme act/vol 75 U/L Normal 47-119 [place] Comment on above: Performed By: #### C MP ####[address] [phone] ALT enzyme act/vol 11 U/L Normal 0-31 [place] Comment on above: Performed By: #### C MP ####[address] [phone] AST enzyme act/vol 14 U/L Normal 0-31 [place] Comment on above: Performed By: #### C MP ####[address] [phone] Bili,Total 0.8 mg/dl Normal 0.0-1.0 [place] Comment on above: Result Comment: Gama ature : 1 Day 1.0-6.0 mg/dl 2 Day 6.0-8.0 mg/dl 3-5 Day 10.0-15.0 mg/dl Performed By: #### C MP ####[address] [phone] Calcium mass conc 9.8 mg/dL Normal 7.6-11.0 [place] Comment on above: Performed By: #### C MP ####[address] [phone] Chloride molar conc 105 mmol/L Normal 96-108 [place] Comment on above: Performed By: #### C MP ####[address] [phone] CO2 molar conc 26.2 mmol/L Normal 22.0-29.0 [place] Comment on above: Performed By: #### C MP ####[address] [phone] Creatinine mass conc 0.82 mg/dL Normal 0.50-1.00 [facility] Comment on above: Result Comment: Gama ature 0.3-1.0 mg/dL Performed By: #### C MP ####[address] [phone] Glucose mass conc 89 mg/dL Normal 70-99 [place] Comment on above: Result Comment: Henry simental for Diagnosis of Diabetes(Effective 03/07/11):Fasting specimen (no caloric intake for at least 8 hours). <100 mg/dl Normal 100-125 mg/dl Increased Risk for Diabetes >125 mg/dl Diagnostic for DiabetesRandom Glucose (any time of day without regard to last meal). >=200 mg/dl plus Classic Symptoms of Diabetes Performed By: #### C MP ####[address] [phone] Potassium molar conc 3.8 mmol/L Normal 3.3-5.1 [facility] Comment on above: Performed By: #### C MP ####[address], [place] [phone] Protein mass conc 8.1 g/dL Normal 5.9-8.4 [place] Comment on above: Performed By: #### C MP ####[address] [phone] Sodium molar conc 138 mmol/L Normal 133-145 [place] Comment on above: Performed By: #### C MP ####[address] [phone] Urea nitrogen mass conc 10 mg/dL Normal 4-19 [place] Comment on above: Performed By: #### C MP ####[address] [phone] Complete Blood Counton 06-09 Differential Complete Manual Normal [place] Comment on above: Performed By: #### C BC ####[address] [phone] Erythrocyte distribution width Auto Ratio (RBC) 12.7 % Normal 0.0-14.4 [place] Comment on above: Performed By: #### C BC ####[address] [phone] Hematocrit Auto Volume Fraction (Bld) 45.1 % Normal 37.0-46.0 [place] Comment on above: Performed By: #### C BC ####[address] [phone] Hemoglobin mass conc (Bld) 15.2 g/dL High 12.0-15.0 [place] Comment on above: Performed By: #### C BC ####[address] [phone] Immature granulocytes/100 WBC (Bld) 0.30 % Normal [place] Comment on above: Result Comment: Sherice ture Granulocyte Percent includes promyelocytes, myelocytes,and metamyelocytes. IG% > 1.0 indicates a left shift ispresent. With automated differentials, bands are includedin the neutrophil count and not in the Immature GranulocytePercent. Performed By: #### C BC ####[address] [phone] MCH Auto Entitic mass (RBC) 29.2 pg Normal 25.0-35.0 [place] Comment on above: Performed By: #### C BC ####[address] [phone] MCHC Auto mass conc (RBC) 33.7 % Normal 31.0-37.0 [place] Comment on above: Performed By: #### C BC ####[address] [phone] MCV Auto Entitic volume (RBC) 86.6 fL Normal 78.0-96.0 [place] Comment on above: Performed By: #### C BC ####[phone] Nucleated RBC/100 WBC Ratio (Bld) 0.0 % Normal -1.0-0.0 [place] Comment on above: Performed By: #### C BC ####[address] [phone] Platelet mean volume Auto Entitic volume (Bld) 10.5 fL Normal [place] Comment on above: Result Comment: MPV is plateletrange and agedependent Performed By: #### C BC ####[address] [phone] Platelets Auto #/vol (Bld) 200 10*3/uL Normal 150-450 [place] Comment on above: Performed By: #### C BC ####[address] [place], [place] [phone] RBC Auto #/vol (Bld) 5.21 10E12/L High 4.10-4.80 [facility] Comment on above: Performed By: #### C BC ####[facility] of [address] [phone] WBC Auto #/vol (Bld) 9.0 10*3/uL Normal 4.5-13.0 [facility] Comment on above: Performed By: #### C BC ####[facility] of [address] [phone] Manual Differentialon 2017 Absolute Neutrophil No. 6.6 Normal [place] Comment on above: Performed By: #### M DIFF ####[address] [phone] Atypical Lymphocytes 7 % Normal 0-8 [facility] Comment on above: Performed By: #### M DIFF ####[address] [phone] Band Neutrophils 0 % Low 5-11 [place] Comment on above: Performed By: #### M DIFF ####[facility] of [address] [phone] Cell Morphology Normal Normal [place] Comment on above: Performed By: #### M DIFF ####[facility] of [address] [phone] Lymphocytes 18 % Low 25-45 [place] Comment on above: Performed By: #### M DIFF ####[facility] of [address] [phone] Metamyelocytes 0 % Normal 0-0 [place] Comment on above: Performed By: #### M DIFF ####[address] [place] [phone] Monocytes 2 % Low 3-6 [place] Comment on above: Performed By: #### M DIFF ####[address] [phone] Myelocytes 0 % Normal 0-0 [place] Comment on above: Performed By: #### M DIFF ####[address] [phone] Promyelocytes 0 % Normal 0-0 [place] Comment on above: Performed By: #### M DIFF ####[address] [phone] Segmented Neutrophils 73 % High 34-64 [place] Comment on above: Performed By: #### M DIFF ####[address] [phone] eGFRon 06-09-2018 GFR/1.73 sq M.predicted MDRD vol rate/area 79.58 Normal [place] Comment on above: Result Comment: Refe rence range:> 3 months:>90 ml/min/1.73m^2Ref. Range change [id number]/26/2018 Performed By: #### E GFR ####[address] [phone] Vital Signs Date Time Vital Sign Value Performing Clinician Facility 09-26-2024 11:14-0500 Body mass index (BMI) [Ratio] 24.11 kg/m2 [employer] Work Phone: [facility] 09-26-2024 11:14050 Body weight 59.78 kg [employer] Work Phone: [facility] 09-26-2024 11:14-0500 Diastolic blood pressure 60 mm[Hg] [employer] Work Phone: [facility] 09-26-2024 11:14-0500 Systolic blood pressure 102 mm[Hg] Nasir Harding DO Work Phone: [facility] 09-19-2024 08:40-0500 Body mass index (BMI) [Ratio] 23.8 kg/m2 Renata [place] PA Work Phone: [facility] 09-19-2024 08:40-0500 Body weight 59.02 kg Renata Vineet PA Work Phone: [facility] 09-19-2024 08:40-0500 Diastolic blood pressure 60 mm[Hg] Renata [place] PA Work Phone: [facility] 09-19-2024 08:40-0500 Systolic blood pressure 100 mm[Hg] Renata [place] PA Work Phone: [facility] 08-26-2024 14:45-0500 Body mass index (BMI) [Ratio] 23.05 kg/m2 Renata [place] PA Work Phone: [facility] 08-26-2024 14:45-0500 Body weight 57.15 kg Renata [place] PA Work Phone: [facility] 08-26-2024 14:45-0500 Diastolic blood pressure 62 mm[Hg] Renata Vineet PA Work Phone: [facility] 08-26-2024 14:45-0500 Systolic blood pressure 100 mm[Hg] Renata Vineet PA Work Phone: [facility] 08-20-2024 14:06-0500 Body mass index (BMI) [Ratio] 23.05 kg/m2 Virginia Royal [employer] Work Phone: [facility] 08-20-2024 14:06-0500 Body temperature 96.91 [degF] Virginia Royal [employer] Work Phone: [facility] 08-20-2024 14:06-0500 Body weight 57.15 kg Virgniia Myrna [employer] Work Phone: [facility] 08-20-2024 14:06-0500 Diastolic blood pressure 76 mm[Hg] Virginiamonika [place] [employer] Work Phone: [facility] 08-20-2024 14:06-0500 Heart rate 97 /min Virginia [place] [employer] Work Phone: [facility] 08-20-2024 14:06-0500 SaO2% (BldA) [Mass fraction] 98 % Virginia [place] [employer] Work Phone: [facility] 08-20-2024 14:06-0500 Systolic blood pressure 124 mm[Hg] Virginia [place] [employer] Work Phone: [facility] 08-13-2024 11:18-0500 Body mass index (BMI) [Ratio] 22.68 kg/m2 Renata Manley PA Work Phone: [facility] 08-13-2024 11:18-0500 Body weight 56.25 kg Renata Manley PA Work Phone: [facility] 08-13-2024 11:18-0500 Diastolic blood pressure 68 mm[Hg] Renata Manley PA Work Phone: [facility] 08-13-2024 11:18-0500 Systolic blood pressure 110 mm[Hg] Renata Manley PA Work Phone: [facility] 08-08-2024 12:03-0500 Heart rate 90 /min Virginia [place] [employer] Work Phone: [facility] 08-08-2024 11:40-0500 Body height 157.5 cm Virginia [place] [employer] Work Phone: [facility] 08-08-2024 11:40-0500 Body mass index (BMI) [Ratio] 22.64 kg/m2 Virginia Barry[place] [employer] Work Phone: [facility] 08-08-2024 11:40-0500 Body weight 56.16 kg Virginia Андр[place] [employer] Work Phone: [facility] 08-08-2024 11:40-0500 Diastolic blood pressure 72 mm[Hg] Virginia [place] [employer] Work Phone: [facility] 08-08-2024 11:40-0500 SaO2% (BldA) [Mass fraction] 99 % Virginia Royal [employer] Work Phone: [facility] 08-08-2024 11:40-0500 Systolic blood pressure 110 mm[Hg] Virginia Royal [employer] Work Phone: [facility] 07-29-2024 14:52-0400 Body mass index (BMI) [Ratio] 22.5 kg/m2 Nasir Mehdi DO Work Phone: [facility] 07-29-2024 14:52-0400 Body weight 55.79 kg Nasir Mehdi DO Work Phone: [facility] 07-29-2024 14:52-0400 Diastolic blood pressure 70 mm[Hg] Nasir Mehdi DO Work Phone: [facility] 07-29-2024 14:52-0400 Systolic blood pressure 110 mm[Hg] Nasir Mehdi DO Work Phone: [facility] 07-03-2024 14:00-0400 Body mass index (BMI) [Ratio] 21.95 kg/m2 Renata MCNULTY Work Phone: [facility] 07-03-2024 14:00-0400 Body weight 54.43 kg Renata MCNULTY Work Phone: [facility] 07-03-2024 14:00-0400 Diastolic blood pressure 66 mm[Hg] Renata MCNULTY Work Phone: [facility] 07-03-2024 14:00-0400 Systolic blood pressure 100 mm[Hg] Renata MCNULTY Work Phone: [facility] 06-05-2024 10:31-0400 Body mass index (BMI) [Ratio] 21 kg/m2 Nasir Mehdi DO Work Phone: [facility] 06-05-2024 10:31-0400 Body weight 52.07 kg Nasir Mehdi DO Work Phone: [facility] 06-05-2024 10:31-0400 Diastolic blood pressure 68 mm[Hg] Nasir Mehdi DO Work Phone: [facility] [place] 06-05-2024 10:31-0400 Systolic blood pressure 102 mm[Hg] Nasir Mehdi DO Work Phone: [facility] [place] 07-20-2023 12:50-0400 Body height 157.48 cm Augusto Brewer Other [facility] Other 07-20-2023 12:50-0400 Body mass index (BMI) [Ratio] 18.47 kg/m2 Augusto Brewer Other [facility] Other 07-20-2023 12:50-0400 Body temperature 98.2 [degF] Augusto Brewer Other [facility] Other 07-20-2023 12:50-0400 Body weight 45.81 kg Augusto Brewer Other [facility] Other 07-20-2023 12:50-0400 Diastolic blood pressure 63 mm[Hg] Augusto Brewer Other [facility] Other 07-20-2023 12:50-0400 Respiratory rate 17 /min Augusto Elon Other [facility] Other 07-20-2023 12:50-0400 SaO2% (BldA) [Mass fraction] 98 % Augusto Elon Other [facility] Other 07-20-2023 12:50-0400 Systolic blood pressure 113 mm[Hg] Augusto Brewer Other [facility] Other 07-17-2023 09:40-0400 Body height 157.48 cm Mel Tomlinson Other [facility] Other 07-17-2023 09:40-0400 Body mass index (BMI) [Ratio] 18.65 kg/m2 Mel Tomlinson Other [facility] Other 07-17-2023 09:40-0400 Body temperature 98.7 [degF] Mel Tomlinson Other [facility] Other 07-17-2023 09:40-0400 Body weight 46.27 kg Mel Tomlinson Other [facility] Other 07-17-2023 09:40-0400 Diastolic blood pressure 70 mm[Hg] Mel Tomlinson Other [facility] Other 07-17-2023 09:40-0400 Respiratory rate 18 /min Mel Tomlinson Other [facility] Other 07-17-2023 09:40-0400 SaO2% (BldA) [Mass fraction] 98 % Mel Tomlinson Other [facility] Other 07-17-2023 09:40-0400 Systolic blood pressure 107 mm[Hg] Mel Tomlinson Other [facility] Other 09-27-2022 22:50-0500 Body temperature 98.24 [degF] Gabino Bridgett [facility] 09-27-2022 22:50-0500 Diastolic blood pressure 81 mm[Hg] Gabino Bridgett [facility] 09-27-2022 22:50-0500 Heart rate 99 /min Gabino Bridgett [facility] 09-27-2022 22:50-0500 Respiratory rate 18 /min [facility] Bridgett [facility] 09-27-2022 22:50-0500 SaO2% (BldA) [Mass fraction] 99 % Gabino Bridgett [facility] 09-27-2022 22:50-0500 Systolic blood pressure 121 mm[Hg] Gabino Bridgett [facility] 04-30-2022 02:06-0400 Body weight 49.[address] NASIR HARDING . [facility] Comment on above: Performed By: #### RPRQ #### [facility] [address] [place] [address] Dr. Valerio Alexis Encounters Encounter Date Encounter Type Care Provider Facility Start: 09-26-2024 End: 09-26-2024 Bamboo flowsheet Nasir Mehdi DO Work Phone: [facility] Start: 09-26-2024 End: 09-26-2024 Bamboo flowsheet Nasir Mehdi DO Work Phone: [facility] Start: 09-26-2024 End: 09-26-2024 Office outpatient visit 15 minutes Nasir Harding DO Work Phone: [facility] Comment on above: 36 weeks gestation o f ; Third trimester ; Hematuria, microscopic; SGA (small for gestational age) Start: 09-19-2024 End: 09-19-2024 Bamboo flowsheet Renata MCNULTY Work Phone: [facility] Start: 09-19-2024 End: 09-19-2024 Bamboo flowsheet Renata MCNULTY Work Phone: [facility] Start: 09-19-2024 End: 09-19-2024 Office outpatient visit 15 minutes Renata MCNULTY Work Phone: [facility] Comment on above: 35 weeks gestation o f ; Third trimester ; SGA (small for gestational age); Other hydronephrosis Start: 09-19-2024 End: 09-19-2024 ambulatory RENATA MANLEY Not Available Start: 08-26-2024 End: 08-26-2024 ambulatory RENATA MANLEY Not Available Start: 08-26-2024 End: 08-26-2024 Office outpatient visit 15 minutes Renata MCNULTY Work Phone: [facility] Comment on above: Upper respiratory in fection, acute (Primary Dx); Third trimester ; 32 weeks gestation of ; Sinusitis, unspecified chronicity, unspecified location; Anemia, unspecified type Start: 08-26-2024 End: 08-26-2024 Bamboo flowsheet Renata MCNULTY Work Phone: [facility] Start: 08-26-2024 End: 08-26-2024 Bamboo flowsheet Renata Manley PA Work Phone: [facility] Start: 08-20-2024 End: 08-20-2024 ambulatory VIRGINIA A HACKENBURG Not Available Start: 08-20-2024 End: 08-20-2024 Bamboo flowsheet Virginia A Hackenburg FARMWORKER Work Phone: [facility] Start: 08-20-2024 End: 08-20-2024 Bamboo flowsheet Virginia A Hackenburg FARMWORKER Work Phone: [facility] Start: 08-20-2024 End: 08-20-2024 Office outpatient visit 25 minutes Virginia A Hackenburg FARMWORKER Work Phone: [facility] Comment on above: Left arm pain (Prima ry Dx); Recurrent UTI Start: 08-13-2024 End: 08-13-2024 Bamboo flowsheet Renata MCNULTY Work Phone: [facility] Start: 08-13-2024 End: 08-13-2024 Bamboo flowsheet Renata Manley PA Work Phone: [facility] Start: 08-13-2024 End: 08-13-2024 ambulatory RENATA MANLEY Not Available Start: 08-13-2024 End: 08-13-2024 Office outpatient visit 15 minutes Renata Manley PA Work Phone: [facility] Comment on above: Third trimester preg cally; 30 weeks gestation of ; Diabetes mellitus screening Start: 08-08-2024 End: 08-08-2024 Bamboo flowsheet Virginia A Hackenburg FARMWORKER Work Phone: [facility] Start: 08-08-2024 End: 08-08-2024 Bamboo flowsheet Virginia A Hackenburg FARMWORKER Work Phone: [facility] Start: 08-08-2024 End: 08-08-2024 Telephone encounter Lee Lea MD Work Phone: [facility] Start: 08-08-2024 End: 08-08-2024 ambulatory VIRGINIA A HAAMBARENBURG Not Available Start: 08-08-2024 End: 08-08-2024 Office outpatient visit 15 minutes Virginia A Hackenburg FARMWORKER Work Phone: [facility] Comment on above: Pyelonephritis affec ting in third trimester (Primary Dx); Recurrent UTI Start: 08-05-2024 End: 08-05-2024 ambulatory YAMINI DEAN [facility] Start: 08-04-2024 ambulatory NO PCP NO PCP [facility] Start: 08-03-2024 End: 08-05-2024 ambulatory LEE ZARATE [facility] Start: 07-29-2024 End: 07-29-2024 Office outpatient visit 15 minutes Nasir Mehdi DO Work Phone: [facility] Comment on above: Third trimester [...] 07-03-2024 Bamboo flowsheet Renata MCNULTY Work Phone: [facility] Start: 07-03-2024 End: 07-11-2024 Bamboo flowsheet Renata MCNULTY Work Phone: [facility] Start: 07-03-2024 End: 07-11-2024 Clinisync Result Encounter Nasir Mehdi DO Work Phone: [facility] External Department Unsolicited Start: 07-03-2024 End: 07-05-2024 External Result Encounter Renata MCNULTY Work Phone: [facility] External Department Unsolicited Start: 07-03-2024 End: 07-03-2024 Office outpatient visit 15 minutes Renata MCNULTY Work Phone: [facility] Comment on above: Diabetes mellitus sc reening; Well woman exam with routine gynecological exam; Heartburn during in second trimester Start: 07-03-2024 End: 07-03-2024 Patient encounter procedure Renata MCNULTY Work Phone: [facility] Healthcare Start: 07-03-2024 End: 07-03-2024 ambulatory RENATA MANLEY Not Available Start: 06-05-2024 End: 06-05-2024 Bamboo flowsheet Nasir Mehdi DO Work Phone: [facility] Start: 06-05-2024 End: 06-05-2024 Bamboo flowsheet Nasir Mehdi DO Work Phone: [facility] Start: 06-05-2024 End: 06-05-2024 Office outpatient visit 15 minutes Nasir Mehdi DO Work Phone: [facility] Comment on above: Second trimester pre gnancy Start: 06-05-2024 End: 06-05-2024 ambulatory NASIR MEHDI Not Available Start: 05-09-2024 End: 05-09-2024 ambulatory NASIR HARDING Not Available Start: 03-11-2024 End: 03-11-2024 Emergency department patient visit NO PCP NO PCP [facility] Start: 11-26-2023 End: 11-27-2023 Emergency department patient visit SLIME ELLER [facility] Start: 07-26-2023 End: 07-26-2023 ambulatory Mel Tomlinson Other [facility] Other Start: 07-26-2023 Telephone encounter Mel Tomlinson [facility] Start: 07-20-2023 End: 07-20-2023 ambulatory Augusto Brewer Other [facility] Other Start: 07-20-2023 Office outpatient vi sit 15 minutes Augusto Brewer [facility] Start: 07-17-2023 Office outpatient ne w 20 minutes Mel Tomlinson [facility] Start: 07-17-2023 End: 07-17-2023 ambulatory Mel Tomlinson Facility:[facility] Start: 07-17-2023 End: 07-17-2023 ambulatory FARMWORKER-C Mel Tomlinson Work Phone: [facility] Work Phone: Start: 07-17-2023 End: 07-17-2023 Departed Referred FARMWORKER-C Mel Tomlinson Work Phone: [facility] [place] Work Phone: Start: 12-27-2022 End: 12-27-[address] DOCTOR SHARMA Facility:[facility] Start: 11-19-2022 End: 11-19-[address] CORNEJO MISDar Facility:[facility] Start: 10-24-2022 End: 10-24-[address] DOCTOR SHARMA Facility:[facility] Start: 09-27-2022 End: 09-27-2022 Emergency department patient visit Gabino Urias [facility] Start: 08-30-2022 End: 08-30-[address] DOCTOR MISC Facility:[facility] Start: 08-24-2022 End: 08-26-2022 Evaluation and management of inpatient DR DOCTOR MISC Facility:[facility] Start: 08-22-2022 End: 08-22-2022 ambulatory COLEMAN MACIEL . Facility:[facility] Start: 08-18-2022 End: 08-18-[address] DOCTOR MISC Facility:[facility] Start: 08-16-2022 End: 08-16-2022 ambulatory COLEMAN MACIEL . Facility:[facility] Start: 08-15-2022 End: [...] End: 02-15-2022 Patient encounter procedure Gabrielle Esqueda [facility] Start: 02-11-2022 End: 02-12-[address] NASIR HARDING . Facility:[facility] Start: 01-26-2022 End: 01-27-[address] NASIR HARDING . Facility:[facility] Start: 06-08-2018 End: 06-11-2018 Evaluation and management of inpatient ROSE MARY LUIS [place] Start: 06-06-2018 End: 06-08-2018 [facility] Start: 02-22-2018 End: 02-22-2018 Patient encounter MAIRA BOUDREAUX [place] Procedures Date Procedure Procedure Detail Performing Clinician Start: 09-26-2024 Urnls dip stick/tabl et rgnt non-auto w/o micrscp Nasir Harding DO Work Phone: Start: 09-19-2024 Urnls dip stick/tabl et rgnt non-auto w/o micrscp Renata MCNULTY Work Phone: Start: 08-26-2024 Urnls dip stick/tabl et rgnt [...] VAGINITIS (HTRX) Renata MCNULTY Work Phone: Start: 06-05-2024 Urnls dip stick/tabl et rgnt non-auto w/o micrscp Nasir Harding DO Work Phone: Start: 08-24-2022 Delivery of Products of Conception, External Approach DR NASIR HARDING . Start: 08-24-2022 Drainage of Amniotic Fluid, Therapeutic from Products of Conception, Via Natural or Artificial Opening DR NASIR HARDING . Start: 08-24-2022 Introduction of Othe r Hormone into Peripheral Vein, Percutaneous Approach DR NASIR HARDING . Start: 08-24-2022 Repair Vulva, Information Broker al Approach DR NASIR HARDING . None (qualifier value) Ranjan Esqueda Plan of Treatment Date Care Activity Detail Author Start: 07-03-2027 Screening for malign ant neoplasm of cervix Pap Smear [facility] Start: 08-05-2025 Tobacco Screening Tobacco Screening [facility] Start: 08-04-2025 Adult BMI Screening Adult BMI Screen ing [facility] Start: 08-04-2025 Depression Screening Depression Scre ening [facility] Start: 06-02-2025 DTaP,Tdap and Td Vac cines (7 - Td or Tdap) DTaP,Tdap and Td Vaccines (7 - Td or Tdap) [facility] Start: 10-08-2024 End: 10-08-2024 Patient encounter procedure 10/08/2024 11:30 AM EST Routine [facility] [address] [place] [phone] Nasir Harding, DO [address] [place], [place] [id number] [facility] Start: 09-26-2024 End: 09-26-2025 CULTURE, GROUP B STREP WITH SUSCEPTIBLITY CULTURE, GROUP B STREP WITH SUSCEPTIBLITY Lab Routine 36 weeks gestation of Third trimester Expected: 09/26/2024, Expires: 09/26/2025 [facility] Work Phone: Comment on above: Expected: 09/26/2024 , Expires: 09/26/2025 Start: 09-26-2024 End: 09-26-2025 US for US OB SCAN FOR GROWTH Imaging Routine SGA (small for gestational age) Expected: 09/26/2024 (Approximate), Expires: 09/26/2025 [facility] Comment on above: Expected: 09/26/2024 (Approximate), Expires: 09/26/2025 Start: 09-26-2024 End: 09-26-2024 Patient encounter procedure 09/26/2024 10:30 AM EST Routine [facility] [address] [place] [phone] Nasir Harding, DO [address], [place] [id number] [facility] Start: 09-19-2024 End: 09-19-2024 Professional / ancillary services management 09/19/2024 2:30 PM EST Ancillary Procedure [facility] [address] [place] [address] [facility] Start: 09-19-2024 End: 09-19-2025 US for US OB SCAN FOR GROWTH Imaging Routine SGA (small for gestational age) Expected: 09/19/2024 (Approximate), Expires: 09/19/2025 [facility] Comment on above: Expected: 09/19/2024 (Approximate), Expires: 09/19/2025 Start: 09-19-2024 End: 09-19-2024 Patient encounter procedure 09/19/2024 8:40 AM EST Routine [facility] [address] [facility] [place] [phone] Renata Manley PA [address] [place] [address] Arrived [facility] Comment on above: Arrived Start: 09-16-2024 End: 09-16-2024 Patient encounter procedure 09/16/2024 10:30 AM EST Routine [facility] [address] [facility] [place] [phone] Nasir Harding, [address] [place] [address] [facility] Start: 09-07-2024 End: 08-08-2025 Basic metabolic 2000 panel - Serum or Plasma Basic Metabolic Panel Lab Routine Primary hydronephrosis Expected: 09/07/2024 (Approximate), Expires: 08/08/2025 [facility] Comment on above: Expected: 09/07/2024 (Approximate), Expires: 08/08/2025 Start: 09-07-2024 End: 08-08-2025 US Retroperitoneum Ultrasound retroperitoneal complete Imaging Routine Primary hydronephrosis Expected: 09/07/2024 (Approximate), Expires: 08/08/2025 [facility] Work Phone: Comment on above: Expected: 09/07/2024 (Approximate), Expires: 08/08/2025 Start: 08-26-2024 End: 08-26-2024 Patient encounter procedure 08/26/2024 2:20 PM EST Routine [facility] [address] [place] [phone] Renata Manley PA [address] [place] [address] [place] [address] [facility] Start: 08-20-2024 End: 08-20-2025 US.doppler Upper extremity vein - left Vascular US upper extremity venous duplex left Imaging STAT Left arm pain Expected: 08/20/2024, Expires: 08/20/2025 [facility] Work Phone: Comment on above: Expected: 08/20/2024 , Expires: 08/20/2025 Start: 08-13-2024 End: 08-13-2025 CBC panel - Blood by Automated count CBC Lab Routine Diabetes mellitus screening Expected: 08/13/2024 (Approximate), Expires: 08/13/2025 [facility] Work Phone: Comment on above: Expected: 08/13/2024 (Approximate), Expires: 08/13/2025 Start: 08-13-2024 End: 08-13-2025 Measurement of glucose 1 hour after glucose challenge for glucose tolerance test Glucose tolerance, 1 hour Lab Routine Diabetes mellitus screening Expected: 08/13/2024 (Approximate), Expires: 08/13/2025 [facility] Comment on above: Expected: 08/13/2024 (Approximate), Expires: 08/13/2025 Start: 08-13-2024 End: 08-13-2024 Patient encounter procedure 08/13/2024 10:50 AM EST Routine [facility] [address] [place] [phone] Renata Manley PA [address] [place] [address] [place], [place] [phone] [facility] Start: 08-13-2024 End: 08-13-2024 Professional / ancillary services management 08/13/2024 10:30 AM EST Ancillary Procedure [facility] [address] [place] [phone] [facility] Start: 07-29-2024 End: 07-29-2024 Patient encounter procedure [facility] Comment on above: Arrived Start: 07-29-2024 End: 07-29-2025 US for US OB SCAN FOR GROWTH Imaging Routine size inconsistent with dates Expected: 07/29/2024 (Approximate), Expires: 07/29/2025 [facility] Work Phone: Comment on above: Expected: 07/29/2024 (Approximate), Expires: 07/29/2025 Start: 07-04-2024 End: 07-04-2024 Professional / ancillary services management 07/04/2024 9:00 AM EDT Ancillary Procedure [facility] [address] [facility] [place] [address] [facility] Start: 07-03-2024 End: [...] mellitus screening Expected: 07/03/2024 (Approximate), Expires: 07/03/2025 [facility] Comment on above: Expected: 07/03/2024 (Approximate), Expires: 07/03/2025 Start: 07-03-2024 End: 07-03-2024 Patient encounter procedure 07/03/2024 1:30 PM EDT Routine [facility] [address] [place] [phone] Renata Manley PA [address] [place], [place] [phone] Arrived [facility] Comment on above: Arrived Start: 06-05-2024 End: 06-05-2024 Patient encounter procedure 06/05/2024 10:50 AM EDT Routine [facility] [address] [place] [address] Nasir Harding DO [address] [place] [address] Arrived [facility] Comment on above: Arrived Start: 06-02-2024 COVID-19 Vaccine ( season) COVID-19 Vaccine () [facility] Start: 06-02-2024 Influenza vaccination [facility] Start: 07-17-2023 [facility] Start: 2002 Screening for Chlamy yoel trachomatis Chlamydia Screening [facility] Start: 2002 Tobacco Counseling Tobacco Counselin g [facility] Atopobium vaginae DN A [Presence] in Vaginal fluid by CHULA with probe detection [facility] Bacteria identified in Urine by Culture Urine culture Microbiology Routine Hematuria, microscopic Ordered: 09/26/2024 [facility] Comment on above: Ordered: 09/26/2024 Bacterial vaginosis associated bacterium 2 DNA [Presence] in Vaginal fluid by CHULA with probe detection [facility] Cytology Cervical or vaginal smear or scraping study Pap Smear Pathology and Cytology Routine Well woman exam with routine gynecological exam Ordered: 07/03/2024 [facility] Comment on above: Ordered: 07/03/2024 Hemoglobin A1c/Hemoglobin.total in Blood Hemoglobin A1c Lab Routine 35 weeks gestation of Third trimester Ordered: 09/19/2024 [facility] Work Phone: Comment on above: Ordered: 09/19/2024 Megasphaera sp type 1 DNA [Presence] in Vaginal fluid by CHULA with probe detection [facility] Immunizations Immunization Date Immunization Notes Care Provider Renita rollins 09-17-2018 influenza, injectabl e, quadrivalent, preservative free Renata MCNULTY Work Phone: [facility] 09-17-2018 meningococcal B vaccine, recombinant, OMV, adjuvanted Renata MCNULTY Work Phone: [facility] 09-17-2018 influenza virus vaccine, unspecified formulation Renata MCNULTY Work Phone: [facility] 07-06-2018 meningococcal B vaccine, recombinant, OMV, adjuvanted Renata MCNULTY Work Phone: [facility] 07-06-2018 meningococcal polysaccharide (groups A, C, Y and W-135) diphtheria toxoid conjugate vaccine (MCV4P) Renata MCNULTY Work Phone: [facility] 11-25-2017 influenza, seasonal, injectable Gabrielle Esqueda [facility] Comment on above: Reason for Medicatio n: Other (see comment) 11-25-2017 influenza, injectabl e, quadrivalent, preservative free Renata MCNULTY Work Phone: [facility] 12-01-2015 hepatitis A vaccine, pediatric/adolescent dosage, 2 dose schedule Renata MCNULTY Work Phone: [facility] 12-01-2015 human papilloma viru s vaccine, quadrivalent Renata MCNULTY Work Phone: [facility] 12-01-2015 influenza virus vaccine, whole virus Renata MCNULTY Work Phone: [facility] 08-04-2015 human papilloma viru s vaccine, quadrivalent Renata MCNULTY Work Phone: [facility] 06-02-2015 hepatitis A vaccine, pediatric/adolescent dosage, 2 dose schedule Renata MCNULTY Work Phone: [facility] 06-02-2015 human papilloma viru s vaccine, quadrivalent Renata MCNULTY Work Phone: [facility] 06-02-2015 meningococcal ACWY vaccine, unspecified formulation Renata MCNULTY Work Phone: [facility] 06-02-2015 tetanus toxoid, redu edi diphtheria toxoid, and acellular pertussis vaccine, adsorbed Renata MCNULTY Work Phone: [facility] 06-01-2007 diphtheria, tetanus toxoids and acellular pertussis vaccine, unspecified formulation Renata [place] PA Work Phone: [facility] 06-01-2007 measles, mumps, rubella, and varicella virus vaccine Renata Vineet PA Work Phone: [facility] 06-01-2007 poliovirus vaccine, inactivated Renata Vineet PA Work Phone: [facility] 10-24-2003 diphtheria, tetanus toxoids and acellular pertussis vaccine, unspecified formulation Renata Vineet PA Work Phone: [facility] 10-24-2003 poliovirus vaccine, unspecified formulation Renata Manley PA Work Phone: [facility] 10-10-2003 hepatitis B vaccine, pediatric or pediatric/adolescent dosage Renata Vineet PA Work Phone: [facility] 10-10-2003 measles, mumps and rubella virus vaccine Renata Vineet PA Work Phone: [facility] 10-10-2003 pneumococcal conjuga te vaccine, 7 valent Renata Manley PA Work Phone: [facility] 04-10-2003 varicella virus vaccine Renata Manley PA Work Phone: [facility] 2002 diphtheria, tetanus toxoids and acellular pertussis vaccine, unspecified formulation Renata Vineet PA Work Phone: [facility] 2002 pneumococcal conjuga te vaccine, 7 valent Renata Vineet PA Work Phone: [facility] 2002 diphtheria, tetanus toxoids and acellular pertussis vaccine, unspecified formulation Renata [place] PA Work Phone: [facility] 2002 pneumococcal conjuga te vaccine, 7 valent Renata Manley PA Work Phone: [facility] 2002 poliovirus vaccine, inactivated Renata MCNULTY Work Phone: [facility] 2002 diphtheria, tetanus toxoids and acellular pertussis vaccine, unspecified formulation Renata MCNULTY Work Phone: [facility] 2002 hepatitis B vaccine, pediatric or pediatric/adolescent dosage Renata [place] PA Work Phone: [facility] 2002 pneumococcal conjuga te vaccine, 7 valent Renata MCNULTY Work Phone: [facility] 2002 poliovirus vaccine, inactivated Renata MCNULTY Work Phone: [facility] 2002 diphtheria, tetanus toxoids and acellular pertussis vaccine, unspecified formulation Renata MCNULTY Work Phone: [facility] 2002 pneumococcal conjuga te vaccine, 7 valent Renata MCNULTY Work Phone: [facility] 2002 poliovirus vaccine, unspecified formulation Renata MCNULTY Work Phone: [facility] 2002 hepatitis B vaccine, pediatric or pediatric/adolescent dosage Renata MCNULTY Work Phone: [facility] NEGATED: Highlighted row has not occurred!11-20-2019 influenza virus vaccine, live, attenuated, for intranasal use Gabrielle Esqueda [facility] Payers Date Payer Category Payer Medicaid [id number] 2023 Private Health Insurance [facility] MEDICAID [id number] 2002 Unknown [id number] 2.16.840.1.272778.3.579.2. 593 2002 Unknown [id number] 2.16.840.1.004180.3.579.2. 593 2002 Unknown [id number] 2.16.840.1.634022.3.579.2. 593 2002 Unknown [id number] 2.16.840.1.277278.3.579.2. 593 2002 Unknown [id number] 2.16.840.1.516363.3.579.2. 593 2002 Unknown [id number] 2.16.840.1.368793.3.579.2. 593 2002 Unknown [id number] 2.16.840.1.639361.3.579.2. 593 2002 Unknown [id number] 2.16.840.1.941507.3.579.2. 593 2002 Unknown [id number] 2.16.840.1.339289.3.579.2. 593 2002 Unknown [id number] 2.16.840.1.388280.3.579.2. 593 2002 Unknown [id number] 2.16.840.1.961650.3.579.2. 593 2002 Unknown [id number] 2.16.840.1.650260.3.579.2. 593 2002 Unknown [id number] 2.16.840.1.731107.3.579.2. 593 2002 Unknown [id number] 2.16.840.1.373419.3.579.2. 593 2002 Unknown [id number] 2.16.840.1.418744.3.579.2. 593 2002 Unknown [id number] 2.16.840.1.087237.3.579.2. 593 2002 Unknown [id number] 2.16.840.1.880572.3.579.2. 593 2002 Unknown [id number] 2.16.840.1.080258.3.579.2. 593 2002 Unknown [id number] 2.16.840.1.362706.3.579.2. 593 2002 Unknown [id number] 2.16.840.1.346326.3.579.2. 593 2002 Unknown [id number] 2.16.840.1.398201.3.579.2. 593 2002 Unknown [id number] 2.16.840.1.215654.3.579.2. 593 2002 Unknown [id number] 2.16.840.1.081986.3.579.2. 593 2002 Unknown [id number] 2.16.840.1.648768.3.579.2. 593 2002 Unknown [id number] 2.16.840.1.106711.3.579.2. 593 2002 Unknown [id number] 2.16.840.1.806787.3.579.2. 593 2002 Unknown [id number] 2.16.840.1.632090.3.579.2. 593 2002 Unknown [id number] 2.16.840.1.078842.3.579.2. 593 2002 Unknown [id number] 2.16.840.1.379828.3.579.2. 593 2002 Unknown [id number] 2.16.840.1.737136.3.579.2. 593 2002 Unknown [id number] 2.16.840.1.133242.3.579.2. 593 2002 Unknown [id number] 2.16.840.1.100597.3.579.2. 593 2002 Unknown [id number] 2.16.840.1.442262.3.579.2. 593 2002 Unknown [id number] 2.16.840.1.498374.3.579.2. 1286 2002 Unknown [id number] 2.16.840.1.942998.3.579.2. 6 2002 Unknown [id number] 2.16.840.1.789806.3.579.2. 1286 2002 Unknown [id number] 2.16.840.1.941643.3.579.2. 1285 2002 Unknown [id number] 2.16.840.1.152601.3.579.2. 9 2002 Unknown [id number] 2.16.840.1.442066.3.579.2. 1258 2002 Unknown [id number] 2.16.840.1.493927.3.579.2. 1258 2002 Unknown [id number] 2.16.840.1.415256.3.579.2. 1258 2002 Unknown [id number] 2.16.840.1.365630.3.579.2. 1258 2002 Unknown [id number] 2.16.840.1.879507.3.579.2. 1258 2002 Unknown [id number] 2.16.840.1.205115.3.579.2. 1258 2002 Unknown [id number] 2.16.840.1.103791.3.579.2. 1258 2002 Unknown [id number] 2.16.840.1.161959.3.579.2. 1258 2002 Unknown [id number] 2.16.840.1.942109.3.579.2. 1259 1959 Self-pay 1959 Unknown [id number] 1959 Unknown [id number] Unknown [id number] 2.16840.1.142492.3.579.2. 593 Unknown [id number] 2.840.1.988106.3.579.2. 531 Social History Date Type Detail Facility Start: 05-19-2021 Tobacco smoking status Never s moked tobacco (finding) [facility] Comment on above: denies denies denies Tobacco smoking status Never [facility] Comment on above: denies denies denies Start: 05-09-2024 End: 08-08-2024 Sex Assigned At Female [facility] Start: 2002 Sex Assigned At Female [facility] Start: 05-09-2024 End: 08-08-2024 Tobacco smoking status NHIS Ex-smoker [facility] History of tobacco use Current smoker [facility] Start: 10-02-2023 End: 07-21-2024 History of tobacco use Cigarette Smoker [facility] Start: 05-09-2024 End: 08-08-2024 Tobacco use and exposure Smokeless tobacco non-user [facility] Start: 06-05-2024 End: 09-19-2024 Alcoholic beverage intake Ex-drinker (finding) [facility] Start: 06-05-2024 End: 08-08-2024 Alcoholic beverage intake [facility] Start: 01-27-2024 [facility] Start: 2002 Sex assigned at Not on file [facility] Start: 10-02-2023 Tobacco smoking stat us NHIS Occasional tobacco smoker [facility] Has [employer], [employer], [employer], or water [employer] threatened to shut off services in your home in past 12Mo No [facility] Are you now , , , , never or living with a partner? Never [facility] How hard is it for y ou to pay for the very basics like food, housing, medical care, and heating Not very hard [facility] The thought of talyai ng myself has occurred to me Never [facility] Start: 08-04-2024 Tobacco Comment Pt states quit 2 weeks ago [facility] Start: 12-09-2020 Sex Female (finding) [facility] Start: 08-04-2024 Gender identity Identifies as female gender (finding) [facility] Start: 08-04-2024 Sexual orientation Heterosexual (fin ding) [facility] Start: 08-20-2024 Alcohol Comment Caffine: 1 cup daily [facility] Goals Date Patient Goal Desired Activity /State Personal health goal Functional Status Date Assessment Result Facility 09-27-2022 Functional Status Yes [facility] Clinical Notes 04-14-2021 to 09-26-2024 Taylor Hinton, NANCY - 09/26/2024 10:30 AM Johanny Schultz, NANCY - 09/19/2024 8:40 AM HAMLET Gann - 08/26/2024 2:20 PM Renae Royal NP - 08/20/2024 2:00 PM EST Note Date & Type Note Facility 09-26-2024 History of [facility] t illness Narrative Reason for Appointment: Patient ID: Becca Stafford is a 24 y.o. female who presents for Routine Visit Patient presents today for Return OB appointment. MEDICATIONS Current Outpatient Medications Medication Instructions albuterol HFA (Ventolin HFA) 90 mcg/act inhaler 2 puffs, Inhalation, Every 4 hours PRN aspirin 325 mg, Oral, Daily omeprazole (PRILOSEC) 20 mg, Oral, Nightly, Do not crush or chew. ondansetron (ZOFRAN) 4 mg, Oral, Every 6 hours PRN, Take 1 tablet by mouth every 6 hours as needed for nausea. ALLERGIES No Known Allergies PROBLEMS Active Ambulatory Problems Diagnosis Date Noted Acute vaginitis 06/12/2023 Anxiety 06/12/2023 Body mass index (BMI) of 19.0-19.9 in adult 06/12/2023 Childhood eating disorder ([facility]) 06/12/2023 Depressive disorder ([facility]) 06/07/2018 Disorder of refraction and accommodation 02/11/2014 Dysmenorrhea 06/12/2023 Menorrhagia with regular cycle 06/12/2023 Myopia 01/07/2015 Overactive bladder 09/15/2016 Overdose of antipsychotic, intentional self-harm, initial encounter ([facility]) 06/06/2018 Pharyngitis 06/12/2023 Tonsillitis 06/12/2023 Recurrent UTI 09/15/2016 Sore throat 06/12/2023 Viral gastritis 06/12/2023 Viral gastroenteritis 06/12/2023 Right lower quadrant abdominal pain affecting 08/04/2024 Other hydronephrosis 09/19/2024 SGA (small for gestational age) 09/19/2024 Third trimester 09/19/2024 35 weeks gestation of 09/19/2024 36 weeks gestation of 09/26/2024 Resolved Ambulatory Problems Diagnosis Date Noted No [...] nursing note reviewed. Exam conducted with a generator operator straight bevel gear present. Vitals: Estimated body mass index is 24.11 kg/m as calculated from the following: Height as of 08/08/24: 5' 2 . Weight as of this encounter: 131 lb 12.8 oz. BP: 102/60 No LMP recorded (lmp unknown). Patient is . ASSESSMENT & PLAN ICD-10-CM 1. 36 weeks gestation of Z3A.36 CULTURE, GROUP B STREP WITH SUSCEPTIBLITY CULTURE, GROUP B STREP WITH SUSCEPTIBLITY POCT urinalysis dipstick manually resulted CANCELED: CULTURE, GROUP B STREP WITH SUSCEPTIBLITY 2. Third trimester Z34.93 CULTURE, GROUP B STREP WITH SUSCEPTIBLITY CULTURE, GROUP B STREP WITH SUSCEPTIBLITY POCT urinalysis dipstick manually resulted CANCELED: CULTURE, GROUP B STREP WITH SUSCEPTIBLITY Patient is doing well but has complaints of being tired and having maternal discomfort due to . Patient verbalized frequent movement and was instructed to perform kick counts three times per day. labor precautions were given, LARC consent was signed/declined, and GBS was obtained. Cervical check was performed and patient is 1cm dilated. Orders Placed This Encounter Procedures CULTURE, GROUP B STREP WITH SUSCEPTIBLITY POCT urinalysis dipstick manually resulted Follow Up: Patient is to return to office in 1 week for routine OB appointment Documented by Taylor Hinton LPN on behalf of: Nasir Harding DO documented in this encounter [facility] 09-19-2024 History of Presen t illness Narrative Reason for Appointment: Patient ID: Becca Stafford is a 24 y.o. female who presents for Routine Visit Patient presents today for Return OB appointment. MEDICATIONS Current Outpatient Medications Medication Instructions albuterol HFA (Ventolin HFA) 90 mcg/act inhaler 2 puffs, Inhalation, Every 4 hours PRN aspirin 325 mg, Oral, Daily omeprazole (PRILOSEC) 20 mg, Oral, Nightly, Do not crush or chew. ondansetron (ZOFRAN) 4 mg, Oral, Every 6 hours PRN, Take 1 tablet by mouth every 6 hours as needed for nausea. ALLERGIES No Known Allergies PROBLEMS Active Ambulatory Problems Diagnosis Date Noted Acute vaginitis 06/12/2023 Anxiety 06/12/2023 Body mass index (BMI) of 19.0-19.9 in adult 06/12/2023 Childhood eating disorder ([facility]) 06/12/2023 Depressive disorder ([facility]) 06/07/2018 Disorder of refraction and accommodation 02/11/2014 Dysmenorrhea 06/12/2023 Menorrhagia with regular cycle 06/12/2023 Myopia 01/07/2015 Overactive bladder 09/15/2016 Overdose of antipsychotic, intentional self-harm, initial encounter ([facility]) 06/06/2018 Pharyngitis 06/12/2023 Tonsillitis 06/12/2023 Recurrent UTI [...] SYSTEMS Review of Systems: Review of Systems All other systems reviewed and are negative. [...] nursing note reviewed. Exam conducted with a generator operator straight bevel gear present. Vitals: Estimated body mass index is 23.8 kg/m as calculated from the following: Height as of 08/08/24: 5' 2 . Weight as of this encounter: 130 lb 1.9 oz. BP: 100/60 No LMP recorded (lmp unknown). Patient is . ASSESSMENT & PLAN ICD-10-CM 1. 35 weeks gestation of Z3A.35 POCT urinalysis dipstick manually resulted Hemoglobin A1c 2. Third trimester Z34.93 POCT urinalysis dipstick manually resulted Hemoglobin A1c Patient presents today for a routine obstetrics appointment. Patient is currently 35w5d with a Estimated Date of Delivery: 10/19/24. Ordered growth scan to have obtained due to SGA. Patient to return to clinic in 1 week for routine OB appointment and GBS to be obtained. Discussed possibly delivering early and patient would like to discuss with partner prior to deciding if she would like delivered on 10/07/23 or 10/08/23. Patient to call office with decision if she desires to have IOL early due to sever hydronephrosis. Documented by Maida Schultz LPN on behalf of: Dr. Nasir Harding DO documented in this encounter [facility] 08-26-2024 History of Presen t illness Narrative [...] 19.0-19.9 in adult 06/12/2023 Childhood eating disorder ([facility]) 06/12/2023 Depressive disorder ([facility]) 06/07/2018 Disorder of refraction and accommodation 02/11/2014 Dysmenorrhea 06/12/2023 Menorrhagia with regular cycle 06/12/2023 Myopia 01/07/2015 Overactive bladder 09/15/2016 Overdose of antipsychotic, intentional self-harm, initial encounter ([facility]) 06/06/2018 Pharyngitis 06/12/2023 [...] of: HAMLET Underwood documented in this encounter [facility] 08-20-2024 History of Presen t illness Narrative [...] follow-ups on file. documented in this encounter [facility] 08-13-2024 History of Presen t illness Narrative [...] 19.0-19.9 in adult 06/12/2023 Childhood eating disorder ([facility]) 06/12/2023 Depressive disorder ([facility]) 06/07/2018 Disorder of refraction and accommodation 02/11/2014 Dysmenorrhea 06/12/2023 Menorrhagia with regular cycle 06/12/2023 Myopia 01/07/2015 Overactive bladder 09/15/2016 Overdose of antipsychotic, intentional self-harm, initial encounter ([facility]) 06/06/2018 Pharyngitis 06/12/2023 [...] notes from er visit with transfer to [facility] reviewed. Pt was sent for mri for [...] of: HAMLET Underwood documented in this encounter [facility] 08-08-2024 Miscellaneous Notes Formattin g of this note might be different from the original. Needs renal ultrasound, labs, and follow up with me in 1 month documented in this encounter [facility] 08-08-2024 Telephone encount er Note Needs renal ultrasound, labs, and follow up with me in 1 month [facility] 08-08-2024 History of Presen t illness [...] then. Recurrent UTI documented in this encounter [facility] 07-29-2024 History of Presen t illness Narrative [...] 19.0-19.9 in adult 06/12/2023 Childhood eating disorder ([facility]) 06/12/2023 Depressive disorder ([facility]) 06/07/2018 Disorder of refraction and accommodation 02/11/2014 Dysmenorrhea 06/12/2023 Menorrhagia with regular cycle 06/12/2023 Myopia 01/07/2015 Overactive bladder 09/15/2016 Overdose of antipsychotic, intentional self-harm, initial encounter ([facility]) 06/06/2018 Pharyngitis 06/12/2023 [...] nursing note reviewed. Exam conducted with a generator operator straight bevel gear present. Vitals: Estimated body mass index is [...] Nasir Harding DO documented in this encounter [facility] 07-03-2024 History of Presen t illness Narrative [...] 19.0-19.9 in adult 06/12/2023 Childhood eating disorder ([facility]) 06/12/2023 Depressive disorder ([facility]) 06/07/2018 Disorder of refraction and accommodation 02/11/2014 Dysmenorrhea 06/12/2023 Menorrhagia with regular cycle 06/12/2023 Myopia 01/07/2015 Overactive bladder 09/15/2016 Overdose of antipsychotic, intentional self-harm, initial encounter ([facility]) 06/06/2018 Pharyngitis 06/12/2023 [...] nursing note reviewed. Exam conducted with a generator operator straight bevel gear present. Vitals: Estimated body mass index is [...] of: HAMLET Underwood documented in this encounter [facility] 06-05-2024 History of Presen t illness Narrative Reason for Appointment: Patient ID: Becca Staffrod is a 24 y.o. female who presents for Routine Visit Patient presents today for Return OB appointment. MEDICATIONS Current Outpatient Medications Medication Instructions ondansetron (ZOFRAN) 4 mg, Oral, Every 6 hours PRN, Take 1 tablet by mouth every 6 hours as needed for nausea. ondansetron ODT (ZOFRAN-ODT) 4 mg, Oral ALLERGIES No Known Allergies PROBLEMS Active Ambulatory Problems Diagnosis Date Noted Acute vaginitis 06/12/2023 Anxiety 06/12/2023 Body mass index (BMI) of 19.0-19.9 in adult 06/12/2023 Childhood eating disorder ([facility]) 06/12/2023 Depressive disorder ([facility]) 06/07/2018 Disorder of refraction and accommodation 02/11/2014 Dysmenorrhea 06/12/2023 Menorrhagia with regular cycle 06/12/2023 Myopia 01/07/2015 Overactive bladder 09/15/2016 Overdose of antipsychotic, intentional self-harm, initial encounter ([facility]) 06/06/2018 Pharyngitis 06/12/2023 [...] nursing note reviewed. Exam conducted with a generator operator straight bevel gear present. Vitals: Estimated body mass index is 21 kg/m as calculated from the following: Height as of 23: 5' 2 . Weight as of this encounter: 114 lb 12.8 oz. BP: 102/68 No LMP recorded (lmp unknown). Patient is . ASSESSMENT & PLAN ICD-10-CM 1. Second trimester Z34.92 POCT urinalysis dipstick manually resulted Pt doing well with no complaints. Pt had anatomy scan done previously to appt today. Pt to have pap and cultures obtained next visit. Pt given msAFP- pt to return in 4 weeks for scheduled OB appt. Documented by Taylor Hinton LPN on behalf of: Nasir Harding DO documented in this encounter [facility] 07-20-2023 Evaluation note Encounter Date [...] and subcutaneous tissue, unspecified (ICD-10 - L08.9) [facility] Other 10-16-2023 Evaluation note* Encounter Date Diagnosis [...] of candidiasis of vagina (ICD-10 - Z86.19) [facility] Other 12-28-2022 Hospital Discharge instructions Patient Education 09/27/2022 23:49:20 Upper Respiratory Infection, Adult, Lcuu-be-Lrdj Upper Respiratory Infection, Adult An upper respiratory [...] and other clear broths. General instructions Take odxw-hft-hdskphu and prescription medicines only as told by [...] not have soap and water, use hand database analyst. Avoid touching your mouth, face, eyes, or [...] get better within 7 10 days. Take tvry-mgu-fixpvox and prescription medicines only as told by your doctor. This information is not intended to replace advice given to you by your health care provider. Make sure you discuss any questions you have with your health care provider. Document Released: 03/06/2009 Document Revised: 09/26/2019 Document Reviewed: 05/11/2018 [employer] Patient Education 2020 [employer] 09/27/2022 23:49:20 Cough, Adult, Xjrq-ey-Rigj Cough, Adult A cough helps to clear [...] Follow these instructions at home: Medicines Take rnsh-epp-ycppllz and prescription medicines only as told by [...] Many things can cause a cough. Take pypv-stj-patmcgw and prescription medicines only as told by [...] 05/31/2012 Document Revised: 10/07/2019 Document Reviewed: 10/07/2019 [employer] Patient Education 2020 [employer]. Follow Up Care 09/27/2022 22:50:28 With:Fatoumata Oneill Address:Unknown When:09/30/2022 Comments:Follow-up with your primary care provider in 3 to 5 days. If symptoms worsen, do not improve, or new symptoms arise please report back to emergency department for further evaluation. [facility]12-27-2022 Evaluation + Plan noteExtracted from: Title:ED Note Author:Rober Wang PA-C te:09/27/22 Constipation (K59.00: Consti pation, unspecified) Upper respiratory infection, viral (J06.9: Acute upper respiratory infection, unspecified) Orders: polyethylene glycol 3350, 17 gm, Oral, Daily, # 12 EA, Refills(s) 0, Pharmacy: [facility]/pharmacy #[id number], 157.5, cm, 09/27/22 22:57:00 EST, Height/Length Dosing, 51.3, kg, 09/27/22 22:57:00 EST, Weight Dosing Group A Strep by PCR Rapid Strep w/rfx Diagnostic Tests Pending * Group A Strep by PCR 09/27/22 [facility]07-14-2021 Evaluation + Plan note Future Scheduled Tests Laboratory* Rapid Strep w/rfx [facility]21 [facility] assessment information available [facility] Work Phone: Evaluation noteNo InformationNorth [employer] [facility] Other Evaluation note* Diagnosis Diabetes mellitus screening Screening for diabetes mellitus Well woman exam with routine gynecological exam Routine gynecological examination Heartburn during in second trimester documented in this encounter [facility] HealthcareEvaluation note* Diagnosis 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 [facility] Diagnosis Pyelonephritis affecting in third trimester- Primary Recurrent UTI Urinary tract infection, site not specified documented in this encounter [facility] HealthcareEvaluation note* Diagnosis Left arm pain- Primary Pain in soft tissues of limb Recurrent UTI Urinary tract infection, site not specified documented in this encounter [facility] HealthcareEvaluation note* Diagnosis Third trimester state, incidental 30 weeks gestation of Diabetes mellitus screening Screening for diabetes mellitus documented in this encounter [facility] HealthcareEvaluation note* Diagnosis Third trimester state, incidental 28 weeks gestation of Allergy, initial encounter size inconsistent with dates documented in this encounter [facility] HealthcareEvaluation note* Diagnosis Upper respiratory infection, acute- Primary Third trimester state, incidental 32 weeks gestation of Sinusitis, unspecified chronicity, unspecified location Anemia, unspecified type documented in this encounter [facility] HealthcareEvaluation note* Diagnosis Second trimester state, incidental documented in this encounter [facility] HealthcareEvaluation note* Diagnosis 35 weeks gestation of Third trimester state, incidental SGA (small for gestational age) Xmeat-dmt-aqjck without mention of malnutrition, unspecified (weight) Other hydronephrosis documented in this encounter [facility] HealthcareEvaluation note* Diagnosis 36 weeks gestation of Third trimester state, incidental Hematuria, microscopic Microscopic hematuria SGA (small for gestational age) Ytuqn-wdw-hwiwi without mention of malnutrition, unspecified (weight) documented in this encounter [facility] HealthcareHospital course Narrative No data available for this section [facility] No data available for this section [facility] on filedocumented in this encounter [facility] No data available for this section [facility] Summary Purpose Family History No Family History Records FoundNo Family History Records FoundNo Family History Records FoundNo Family History Records FoundNo Family History Records FoundNo Family History Records FoundNo Family History Records FoundNo Family History Records FoundNo Family History Records Found Advance Directives Date Activated Date Inactivated Comments 08/04/2024 12:24 AM 08/05/2024 6:42 PM Additional Source Comments INFORMATION SOURCE (unrecogn ized section and content) DATE CREATED AUTHOR 07/16/2018 [place] DATE CREATED AUTHOR AUTHOR'S ORGANIZ ATION 11/22/2019 [facility] DATE CREATED AUTHOR AUTHOR'S ORGANIZ ATION 12/30/2022 [facility] DATE CREATED AUTHOR AUTHOR'S ORGANIZ ATION 07/25/2023 [facility] DATE CREATED AUTHOR AUTHOR'S ORGANIZ ATION 10/01/2023 [facility] DATE CREATED AUTHOR AUTHOR'S ORGANIZ ATION 03/14/2024 [facility] DATE CREATED AUTHOR AUTHOR'S ORGANIZ ATION 08/07/2024 [facility] DATE CREATED AUTHOR AUTHOR'S ORGANIZ ATION 08/29/2024 [facility] DATE CREATED AUTHOR AUTHOR'S ORGANIZ ATION 09/22/2024 [facility] EPIC Patient Care team informatio n (unrecognized section and content) Team Status: Inactive Member Role Status Dates Mel Tomlinson , FARMWORKER-C Attending Provider Active Flare Stitcher Relationship Specialty Start Date End Date Jesusita Torrez MD [address] [place] [address] PCP - General Family Medicine 03/13/24 Flare Stitcher Relationship Specialty Start Date End Date Jesusita Torrez MD [address] [place] [address] PCP - General Family Medicine 03/13/24 Flare Stitcher Relationship Specialty Start Date End Date Jesusita Torrez MD [address] [place] [address] PCP - General Family Medicine 03/13/24 Flare Stitcher Relationship Specialty Start Date End Date No Pcp[place] [address] PCP - General Family Medicine 11/26/23 Flare Stitcher Relationship Specialty Start Date End Date Jesusita Torrez MD [address] [place] [address] PCP - General Family Medicine 03/13/24 Flare Stitcher Relationship Specialty Start Date End Date Jesusita Torrez MD [address] [place] [address] PCP - General Family Medicine 03/13/24 Flare Stitcher Relationship Specialty Start Date End Date Jesusita Torrez MD [address] [place] [address] PCP - General Family Medicine 03/13/24 Flare Stitcher Relationship Specialty Start Date End Date Jesusita Torrez MD [address] [place] [address] PCP - General Family Medicine 03/13/24 Flare Stitcher Relationship Specialty Start Date End Date Jesusita Torrez MD [address] [place] [address] PCP - General Family Medicine 03/13/24 Flare Stitcher Relationship Specialty Start Date End Date Jesusita Torrez MD [address] [place] [address] PCP - General Family Medicine 03/13/24 Flare Stitcher Relationship Specialty Start Date End Date Jesusita Torrez MD [address] [place] [address] PCP - General Family Medicine 03/13/24 Flare Stitcher Relationship Specialty Start Date End Date Jesusita Torrez MD [address] [place] [address] PCP - General Family Medicine 03/13/24 Flare Stitcher Relationship Specialty Start Date End Date Jesusita Torrez MD [address] [place] [address] PCP - General Family Medicine 03/13/24 Flare Stitcher Relationship Specialty Start Date End Date Jesusita Torrez MD [address] [facility] [place] [address] PCP - General Family Medicine 03/13/24 Flare Stitcher Relationship Specialty Start Date End Date Jesusita Torrez MD [address] [facility] [place] [address] PCP - General Family Medicine 03/13/24 Flare Stitcher Relationship Specialty Start Date End Date Jesusita Torrez MD [address] [facility] [place] [address] PCP - General Family Medicine 03/13/24 Flare Stitcher Relationship Specialty Start Date End Date Jesusita Torrez MD [address] [facility] [place] [address] PCP - General Family Medicine 03/13/24 Goals [...] BE BASED ON THE PRIMARY CLINICAL RECORDS. [facility]. provides no warranty or guarantee of the accuracy or completeness of information in this document.
[2024-09-27 14:49] LABS: BOX Test Reference Lab FIRELANDS; BOX Test Sent Out GROUP B
== END 2024-09-26 17:00 | disposition home or self-care (01) ==
LOC: LAB 16:59
PROVIDERS: Visit Provider Obstetrics & Gynecology
DX: Z34.93 Encounter for supervision of normal pregnancy, unspecified, third trimester (principal); Z3A.36 36 weeks gestation of pregnancy
CPT/HCPCS: 36415; 87081

== ENCOUNTER 2024-09-29 07:04 | Observation (INO) | payer OTHER, SELFPAY ==
--- OUTSIDE RECORDS SUMMARY | 2024-09-29 07:10 | XMS_ITS | CCD ---
Author Organization [facility] Care Team Providers Care Premix Operator Concentrate Name Role Phone MAIRA BOUDREAUX Unavailable Unavailable TOBY, ROSE MARY Unavailable Unavailable TOBY, ROSE MARY Unavailable Unavailable SONDIKE, CONOR B Unavailable Unavailable SONDIKE, CONOR B Unavailable Unavailable TOBY, ROSE MARY Unavailable Unavailable HISSETT, JOON Unavailable Unavailable TOBY, ROSE MARY Unavailable Unavailable JOSE LUIS NORIEGA Unavailable Unavailable NOAH MCCALLUM Unavailable Unavailable NEMAIDA HOPE Unavailable Unavailable TOBY, Rose Mary A Primary Care Physician [phone] Fatoumata Oneill Primary Care Physician MEHDI ., [...] SOLIS Attending Unavailable MEDHI ., DR SOLIS Consulting Unavailable MEHDI ., [...] Unavailable MEHDI ., DR SOLIS Admitting Unavailable MEHID ., DR SOLIS Attending Unavailable MEHDI ., [...] Unavailable MEHDI ., DR SOLIS Admitting Unavailable MEHID ., DR SOLIS Attending Unavailable MISC, DR [...] SOLIS Consulting Unavailable MEHDI ., DR SOLIS Admmatthew Unavailable KARASIK ., DR CEE Attending Unavailabl [...] ., DR SOLIS Procedure Practitioner Unavail able MISC, DR CORNEJO Primary Care Unavailable MEHDI [...] Unavailable MEHDI ., DR SOLIS Attending Unavailable PICACHO, DR LEE Arceo Consulting Unavailable MEHDI ., DR SOLIS Admitting Unavailable MEHDI ., DR SOLIS Consulting Unavailable MEHDI ., DR SOLIS Attending Unavailable MEHDI ., DR SOLIS Consulting Unavailable MEHDI ., DR SOLIS Admitting Unavailable ALINE Tolminson Attending Provider Mel Tomlinson Unavailable Augusto Brewer Unavailable NO PCP, NO PCP Primary Care [...] Noonan Attending Unavailable RENATA MANLEY Attending Unavailable NASIR HARDING Attending Unavailable Nasir Harding Attending Unavailable Nasir Harding Admitting Unavailable Medications Current Medications Medication Drug Class(es) Dates Sig (Normalized) Sig (Original) [id number] 200 actuat albuterol 0.09 mg/actuat metered dose inhaler (8 sources) beta2-Adrenergic Agonist Start: 08-26-2024 End: 08-26-2025 take 2 puff(s) by inhalation every four hours for wheezing albuterol HFA (Ventolin HFA) 90 mcg/act inhaler Indications: Upper respiratory infection, acute Inhale 2 puffs every 4 (four) hours if needed for wheezing 18 g 08/26/2024 08/26/2025 Active amoxicillin 500 mg oral [...] / neomycin 3.5 mg/ml / polymyxin b 52176 unt/ml otic suspension (4 sources) Aminoglycoside Antibacterial, Polymyxin-class Antibacterial, Corticosteroid Start: 07-17-2023 Schfrrrb-Ukcvelpvj-YP 3.5-73698-2 3 drops right ear Three times a [...] for 2 Days Not-Taking polyethylene glycol 3350 64541 mg powder for oral solution (5 sources) Osmotic Laxative Start: 09-27-2022 take 17 g by mouth once daily Miralax 3350 17 gram packet 17 gm, Oral, Daily, # 12 EA, Refills(s) 0, Pharmacy: [facility]/pharmacy #[id number], 157.5, cm, 09/27/22 22:57:00 EST, Height/Length [...] (20 sources) 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; 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 Normal [facility] Comment on above: Performed By: #### C USTB(PCN) #### [facility] [address] Urinalysis macro (dipstick) panel (U)on 09-26-2024 Bilirubin, UA Negative Negative - 4(70) +++ mg/dL [facility] Blood, UA Negative Negative - 50 Jd/mcL [facility] Clarity, UA Clear [facility] Color, UA Yellow [facility] Glucose, UA Negative Negative - 1999(110) ++++ mg/dL [facility] Interpretation and review of laboratory results Abnormal [facility] Ketones, UA Negative Negative - 160(16) ++++ mg/dL [facility] Leukocytes, UA Few Negative - 500+++ Mookie/mcL [facility] Comment on above: small Nitrite, UA Negative Negative - Positive [facility] pH, UA 6.5 5 - 9 [facility] Protein, UA Negative Negative - 1999(20) ++++ mg/dL [facility] Spec Grav, UA 1.015 1 - 1.03 [facility] care Urobilinogen, UA 0.2 0.2 - 12 mg/dL [facility] Urinalysis macro (dipstick) panel (U)on 09-19-2024 Bilirubin, UA Negative Negative - 4(70) +++ mg/dL [facility] Blood, UA Negative Negative - 50 Jd/mcL [facility] Clarity, UA Clear [facility] Color, UA Yellow [facility] Glucose, UA Negative Negative - 1999(110) ++++ mg/dL [facility] Interpretation and review of laboratory results Abnormal [facility] Ketones, UA Negative Negative - 160(16) ++++ mg/dL [facility] Leukocytes, UA Positive Negative - 500+++ Mookie/mcL [facility] Comment on above: small Nitrite, UA Negative Negative - Positive [facility] pH, UA 6.5 5 - 9 [facility] Protein, UA Negative Negative - 1999(20) ++++ mg/dL [facility] Spec Grav, UA 1.025 1 - 1.03 [facility] Urobilinogen, UA 0.2 0.2 - 12 mg/dL [facility] macro (dipstick) panel (U)on 08-26-2024 Bilirubin, UA Negative Negative - 4(70) +++ mg/dL [facility] Blood, UA Negative Negative - 50 Jd/mcL [facility] Clarity, UA Clear [facility] Color, UA [facility] Glucose, UA Negative Negative - 1999(110) ++++ mg/dL [facility] Interpretation and review of laboratory results Normal [facility] Ketones, UA Negative Negative - 160(16) ++++ mg/dL [facility] Leukocytes, UA Negative Negative - 500+++ Mookie/mcL [facility] Nitrite, UA Negative Negative - Positive [facility] pH, UA 7 5 - 9 [facility] Protein, UA Negative Negative - 1999(20) ++++ mg/dL [facility] Spec Grav, UA 1.02 1 - 1.03 [facility] Urobilinogen, UA 0.2 0.2 - 12 mg/dL [facility] US UPPER EXTREMITY VENO US DUPLEX LEFTon 08-20-2024 [facility] US UPPER EXTREMITY VENOUS DUPLEX LEFT Exam: [facility] US UPPER EXTREMITY VENOUS DUPLEX [...] UA Negative Negative - 4(70) +++ mg/dL [facility] Blood, UA Negative Negative - 50 Jd/mcL [facility] Clarity, UA Clear [facility] re Color, UA Yellow [facility] Glucose, UA Negative Negative - 1999(110) ++++ mg/dL [facility] Interpretation and review of laboratory results Abnormal [facility] Ketones, UA Negative Negative - 160(16) ++++ mg/dL [facility] Leukocytes, UA Trace Negative - 500+++ Mookie/mcL [facility] Nitrite, UA Negative Negative - Positive [facility] pH, UA 7 5 - 9 [facility] Protein, UA Negative Negative - 1999(20) ++++ mg/dL [facility] Spec Grav, UA 1.02 1 - 1.03 [facility] care Urobilinogen, UA 0.2 0.2 - 12 mg/dL [facility] BASIC METABOLIC PANLon 08-05 Anion gap [Moles/Vol] 6 mmol/L Normal 5-15 [facility] Comment on above: Performed By: #### C TANVI, CBCA, 6-4, 2283-8, 9, 73656-3 #### [facility] ([id number]) [address], [address] [place] [address] Calcium [Mass/Vol] 8.6 mg/dL Normal 8.5-10.5 [facility] Comment on above: Performed By: #### C TANVI, CBCA, 2276-4, 4-8, 2131-9, 48328-5 #### [facility] ([id number]) [address], [address] [place] [address] Chloride [Moles/Vol] 108 mmol/L Normal 98-109 [facility] Comment on above: Performed By: #### C MP, CBCA, 2276-4, 2284-8, 2131-9, 13134-4 #### [facility] ([id number]) [address], [address] [place] [address] CO2 [Moles/Vol] 24 mmol/L Normal 22-32 [facility] Comment on above: Performed By: #### C MP, CBCA, 2276-4, 2284-8, 2131-9, 72870-5 #### [facility] ([id number]) [address] [address] [place] [address] Creatinine [Mass/Vol] 0.52 mg/dL Normal 0.40-1.00 [facility] Comment on above: Result Comment: METH OD TRACEABLE TO IDMS STANDARD Performed By: #### C MP, CBCA, 2276-4, 2284-8, 9, 70690-5 #### [facility] ([id number]) [address], [facility] [address] [place] [address] eGFR (CKD-EPI) NON-RACE DEPENDENT >90 Normal >59 [facility] Comment on above: Result Comment: Reported eGFR is based on the CKD-EPI 2020 equation that does not use a race coefficient. Performed By: #### C MP, CBCA, 2276-4, 2284-8, 9, 96413-5 #### [facility] ([id number]) [address] [address] [place] [address] Glucose [Mass/Vol] 81 mg/dL Normal 65-99 [facility] Comment on above: Performed By: #### C MP, CBCA, 2276-4, 2284-8, 9, 43147-9 #### [facility] ([id number]) [address] [address] [place] [address] Potassium [Moles/Vol] 3.8 mmol/L Normal 3.5-5.0 [facility] Comment on above: Performed By: #### C MP, CBCA, 2276-4, 2284-8, 2131-9, 31572-8 #### [facility] ([id number]) [address], [address] [place] [address] Sodium [Moles/Vol] 138 mmol/L Normal 134-146 [facility] Comment on above: Performed By: #### C MP, CBCA, 2276-4, 2284-8, 2131-9, 84369-9 #### [facility] ([id number]) [address], [facility] [address] [place] [address] Urea nitrogen [Mass/Vol] 9 mg/dL Normal 5-23 [facility] Comment on above: Performed By: #### C MP, CBCA, 6-4, 2284-8, 2131-9, 14935-6 #### [facility] ([id number]) [address], [address] [address] CBC AND AUTO DIFFon 08-05-20 24 ABSOLUTE BASOPHIL 0.0 X10E9/L Normal 0.0-0.2 [facility] Comment on above: Performed By: #### C MP, CBCA, 6-4, 4-8, 2131-9, 24025-7 #### [facility] ([id number]) [address] [address] ABSOLUTE NEUTROPHIL 5.0 X10E9/L Normal 1.5-6.6 [facility] Comment on above: Performed By: #### C MP, CBCA, 6-4, 4-8, 2131-9, 52869-3 #### [facility] ([id number]) [address] [address] Basophils/100 WBC (Bld) 0.2 % Normal [facility] Comment on above: Performed By: #### C MP, CBCA, 2276-4, 2284-8, 2131-9, 59404-3 #### [facility] ([id number]) [address] [address] Eosinophils (Bld) [#/Vol] 0.1 10*3/uL Normal 0.0-0.4 [facility] Comment on above: Performed By: #### C MP, CBCA, 2276-4, 2284-8, 2131-9, 15127-5 #### [facility] ([id number]) [address] [address] [place] [address] Eosinophils/100 WBC (Bld) 1.1 % Normal [facility] Comment on above: Performed By: #### C MP, CBCA, 2276-4, 2284-8, 2131-9, 10848-3 #### [facility] ([id number]) [address] [address] Erythrocyte distribution width (RBC) [Ratio] 13.4 % Normal 11.5-15.0 [facility] Comment on above: Performed By: #### C MP, CBCA, 2276-4, 2284-8, 2131-9, 54150-6 #### [facility] ([id number]) [address] [address] Hematocrit (Bld) [Volume fraction] 29.5 % Low 35-47 [facility] Comment on above: Performed By: #### C MP, CBCA, 2276-4, 2284-8, 2132-06, 81678-0 #### [facility] ([id number]) [address] [address] Hemoglobin (Bld) [Mass/Vol] 10.4 g/dL Low 11.7-15.5 [facility] Comment on above: Performed By: #### C MP, CBCA, 2276-4, 2284-8, 2131-9, 08401-1 #### [facility] ([id number]) [address] [address] Lymphocytes (Bld) [#/Vol] 1.3 10*3/uL Normal 1.0-3.5 [facility] Comment on above: Performed By: #### C MP, CBCA, 2276-4, 2284-8, 2132-06, 41420-5 #### [facility] ([id number]) [address] [address] [place] [address] Lymphocytes/100 WBC (Bld) 17.0 % Normal [facility] Comment on above: Performed By: #### C MP, CBCA, 6-4, 2283-8, 2132-06, 24273-7 #### [facility] ([id number]) [address], [facility] [address] [place] [address] MCH (RBC) [Entitic mass] 30.7 pg Normal 27-34 [facility] Comment on above: Performed By: #### C MP, CBCA, 6-4, 2284-05, 2132-06, 19091-9 #### [facility] ([id number]) [address] [address] [place] [address] MCHC (RBC) [Mass/Vol] 35.3 g/dL Normal 32-36 [facility] Comment on above: Performed By: #### C MP, CBCA, 6-4, 2283-8, 2132-06, 56076-4 #### [facility] ([id number]) [address] [address] [place] [address] MCV (RBC) [Entitic vol] 87 fL Normal 80-100 [facility] Comment on above: Performed By: #### C MP, CBCA, 6-4, 2283-8, 2132-06, 68521-4 #### [facility] ([id number]) [address] [address] [place] [address] Monocytes (Bld) [#/Vol] 1.0 10*3/uL High 0-0.9 [facility] Comment on above: Performed By: #### C MP, CBCA, 6-4, 2283-8, 2132-06, 33182-9 #### [facility] ([id number]) [address], [address] [place] [address] Monocytes/100 WBC (Bld) 13.9 % Normal [facility] Comment on above: Performed By: #### C MP, CBCA, 2276-4, 2284-8, 2131-9, 72717-1 #### [facility] ([id number]) [address], [facility] [address] [place] [address] Neutrophils/100 WBC (Bld) 67.8 % Normal [facility] Comment on above: Performed By: #### C MP, CBCA, 2276-4, 2284-8, 2131-9, 50211-2 #### [facility] ([id number]) [address], [facility] [address] [place] [address] Platelet mean volume (Bld) [Entitic vol] 7.7 fL Normal 7-12 [facility] Comment on above: Performed By: #### C MP, CBCA, 2276-4, 2284-8, 2131-9, 80599-2 #### [facility] ([id number]) [address] [address] [place] [address] Platelets (Bld) [#/Vol] 179 10*3/uL Normal 150-450 [facility] Comment on above: Performed By: #### C MP, CBCA, 2276-4, 2284-8, 2131-9, 24763-5 #### [facility] ([id number]) [address], [facility] [address] [place] [address] RBC COUNT 3.39 X10E12/L Low 3.80-5.20 [facility] Comment on above: Performed By: #### C MP, CBCA, 2276-4, 2284-8, 2131-9, 60555-0 #### [facility] ([id number]) [address] [address] [place] [address] WBC (Bld) [#/Vol] 7.4 10*3/uL Normal 4.0-11.0 [facility] Comment on above: Performed By: #### C MP, CBCA, 2276-4, 2284-8, 2131-9, 52405-8 #### [facility] ([id number]) [address], [address] [place] [address] CBC AND AUTO DIFFon 08-04-20 24 ABSOLUTE BASOPHIL 0.0 X10E9/L Normal 0.0-0.2 [facility] Comment on above: Performed By: #### C MP, CBCA, 2276-4, 2284-8, 2131-9, 92399-3 #### [facility] ([id number]) [address], [facility] [address] [place] [address] ABSOLUTE NEUTROPHIL 8.1 X10E9/L High 1.5-6.6 [facility] Comment on above: Performed By: #### C MP, CBCA, 6-4, 4-8, 2131-9, 62931-4 #### [facility] ([id number]) [address], [address] [place] [address] Basophils/100 WBC (Bld) 0.2 % Normal [facility] Comment on above: Performed By: #### C MP, CBCA, 2276-4, 2284-8, 2131-9, 16104-6 #### [facility] ([id number]) [address], [address] [place] [address] Eosinophils (Bld) [#/Vol] 0.0 10*3/uL Normal 0.0-0.4 [facility] Comment on above: Performed By: #### C MP, CBCA, 2276-4, 2284-8, 2131-9, 93602-7 #### [facility] ([id number]) [address], [address] [address] Eosinophils/100 WBC (Bld) 0.2 % Normal [facility] Comment on above: Performed By: #### C MP, CBCA, 2276-4, 2284-8, 2131-9, 01907-5 #### [facility] ([id number]) [address], [address] [place] [address] Erythrocyte distribution width (RBC) [Ratio] 13.3 % Normal 11.5-15.0 [facility] Comment on above: Performed By: #### C MP, CBCA, 6-4, 4-8, 9, 75085-5 #### [facility] ([id number]) [address], [facility] [address] [place] [address] Hematocrit (Bld) [Volume fraction] 29.5 % Low 35-47 [facility] Comment on above: Performed By: #### C MP, CBCA, 6-4, 2283-8, 2132-06, 23719-9 #### [facility] ([id number]) [address], [address] [place] [address] Hemoglobin (Bld) [Mass/Vol] 10.4 g/dL Low 11.7-15.5 [facility] Comment on above: Performed By: #### C MP, CBCA, 6-4, 2283-8, 9, 56201-0 #### [facility] ([id number]) [address], [address] [place] [address] Lymphocytes (Bld) [#/Vol] 1.2 10*3/uL Normal 1.0-3.5 [facility] Comment on above: Performed By: #### C MP, CBCA, 2276-4, 2284-8, 2131-9, 73204-2 #### [facility] ([id number]) [address], [address] [place] [address] Lymphocytes/100 WBC (Bld) 11.7 % Normal [facility] Comment on above: Performed By: #### C MP, CBCA, 2276-4, 2283-8, 9, 68393-1 #### [facility] ([id number]) [address], [address] [place] [address] MCH (RBC) [Entitic mass] 30.5 pg Normal 27-34 [facility] Comment on above: Performed By: #### C MP, CBCA, 6-4, 2283-8, 2132-06, 18692-5 #### [facility] ([id number]) [address], [address] [place] [address] MCHC (RBC) [Mass/Vol] 35.4 g/dL Normal 32-36 [facility] Comment on above: Performed By: #### C MP, CBCA, 6-4, 2283-8, 2132-06, 87501-6 #### [facility] ([id number]) [address], [address] [place] [address] MCV (RBC) [Entitic vol] 86 fL Normal 80-100 [facility] Comment on above: Performed By: #### C MP, CBCA, 6-4, 2283-8, 2132-06, 40828-6 #### [facility] ([id number]) [address], [address] [place] [address] Monocytes (Bld) [#/Vol] 1.0 10*3/uL High 0-0.9 [facility] Comment on above: Performed By: #### C MP, CBCA, 6-4, 2283-8, 9, 67045-2 #### [facility] ([id number]) [address], [address] [place] [address] Monocytes/100 WBC (Bld) 9.2 % Normal [facility] Comment on above: Performed By: #### C MP, CBCA, 6-4, 2283-8, 2132-06, 84130-4 #### [facility] ([id number]) [address], [address] [place] [address] Neutrophils/100 WBC (Bld) 78.7 % Normal [facility] Comment on above: Performed By: #### C MP, CBCA, 2276-4, 2284-8, 2131-9, 50537-5 #### [facility] ([id number]) [address], [address] [place] [address] Platelet mean volume (Bld) [Entitic vol] 7.9 fL Normal 7-12 [facility] Comment on above: Performed By: #### C MP, CBCA, 2276-4, 2284-8, 2131-9, 38456-7 #### [facility] ([id number]) [address] [address] [place] [address] Platelets (Bld) [#/Vol] 181 10*3/uL Normal 150-450 [facility] Comment on above: Performed By: #### C MP, CBCA, 2276-4, 2284-8, 2131-9, 36091-5 #### [facility] ([id number]) [address], [facility] [address] [place] [address] RBC COUNT 3.41 X10E12/L Low 3.80-5.20 [facility] Comment on above: Performed By: #### C MP, CBCA, 2276-4, 2284-8, 2131-9, 03943-5 #### [facility] ([id number]) [address] [address] [place] [address] WBC (Bld) [#/Vol] 10.3 10*3/uL Normal 4.0-11.[address] [facility] Comment on above: Performed By: #### C MP, CBCA, 2276-4, 2284-8, 2-9, 53160-0 #### [facility] ([id number]) [address], [address] [place] [address] COMPREHENSIVE METABOLIC PANE Vini 08-04-2024 Albumin [Mass/Vol] 3.3 g/dL Normal 3.2-5.3 [facility] Comment on above: Performed By: #### C MP, CBCA, 2276-4, 2284-8, 2132-9, 46426-8 #### [facility] ([id number]) [address], [address] [place] [address] ALP [Catalytic activity/Vol] 88 U/L Normal 39-130 [facility] Comment on above: Performed By: #### C MP, CBCA, 2276-4, 2284-8, 2131-9, 12879-4 #### [facility] ([id number]) [address], [address] [place] [address] ALT [Catalytic activity/Vol] 9 U/L Normal 0-31 [facility] Comment on above: Performed By: #### C MP, CBCA, 2276-4, 2284-8, 2-9, 31061-3 #### [facility] ([id number]) [address], [address] [place] [address] Anion gap [Moles/Vol] 10 mmol/L Normal 5-15 [facility] Comment on above: Performed By: #### C MP, CBCA, 2276-4, 2284-8, 2131-9, 22758-0 #### [facility] ([id number]) [address], [address] [place] [address] AST [Catalytic activity/Vol] 17 U/L Normal 0-41 [facility] Comment on above: Performed By: #### C MP, CBCA, 2276-4, 2284-8, 2132-9, 11606-6 #### [facility] ([id number]) [address], [address] [place] [address] Bilirubin [Mass/Vol] 0.5 mg/dL Normal 0.3-1.2 [facility] Comment on above: Performed By: #### C MP, CBCA, 2276-4, 2284-8, 2131-9, 58335-8 #### [facility] ([id number]) [address], [address] [place] [address] Calcium [Mass/Vol] 8.4 mg/dL Low 8.5-10.5 [facility] Comment on above: Performed By: #### C MP, CBCA, 2276-4, 2284-8, 2131-9, 41285-5 #### [facility] ([id number]) [address], [address] [place] [address] Chloride [Moles/Vol] 106 mmol/L Normal 98-109 [facility] Comment on above: Performed By: #### C MP, CBCA, 6-4, 2283-8, 9, 85715-8 #### [facility] ([id number]) [address], [address] [place] [address] CO2 [Moles/Vol] 20 mmol/L Low 22-32 [facility] Comment on above: Performed By: #### C MP, CBCA, 2276-4, 2284-8, 2131-9, 09622-4 #### [facility] ([id number]) [address], [address] [place] [address] Creatinine [Mass/Vol] 0.54 mg/dL Normal 0.40-1.00 [facility] Comment on above: Result Comment: METH OD TRACEABLE TO IDMS STANDARD Performed By: #### C MP, CBCA, 2276-4, 2284-8, 2131-9, 10479-4 #### [facility] ([id number]) [address], [address] [place] [address] eGFR (CKD-EPI) NON-RACE DEPENDENT >90 Normal >59 [facility] Comment on above: Result Comment: Reported eGFR is based on the CKD-EPI 2020 equation that does not use a race coefficient. Performed By: #### C MP, CBCA, 2276-4, 2284-8, 9, 52339-6 #### [facility] ([id number]) [address], [address] [place] [address] Glucose [Mass/Vol] 83 mg/dL Normal 65-99 [facility] Comment on above: Performed By: #### C MP, CBCA, 2276-4, 2284-8, 9, 91709-5 #### [facility] ([id number]) [address], [address] [place] [address] Potassium [Moles/Vol] 3.5 mmol/L Normal 3.5-5.0 [facility] Comment on above: Performed By: #### C MP, CBCA, 2276-4, 2284-8, 2132-06, 76589-0 #### [facility] ([id number]) [address], [address] [place] [address] Protein [Mass/Vol] 6.1 g/dL Normal 6.0-8.0 [facility] Comment on above: Performed By: #### C MP, CBCA, 2276-4, 2284-8, 9, 50129-9 #### [facility] ([id number]) [address], [address] [place] [address] Sodium [Moles/Vol] 136 mmol/L Normal 134-146 [facility] Comment on above: Performed By: #### C MP, CBCA, 2276-4, 2284-8, 9, 62564-2 #### [facility] ([id number]) [address], [address] [place] [address] Urea nitrogen [Mass/Vol] 7 mg/dL Normal 5-23 [facility] Comment on above: Performed By: #### C MP, CBCA, 2276-4, 2284-8, 2132-9, 34931-2 #### [facility] ([id number]) [address], [address] [place] [address] DRUG SCREEN, URINEon 024 AMPHETAMINE/METHAMP Negative Normal NEG [facility] Comment on above: Result Comment: AMPH /METH screening cut off = 1000 ng/mL Performed By: #### D YOUSSEF #### [facility] ([id number]) [address], [address] [place] [address] BARBITURATES Negative Normal NEG [facility] Comment on above: Result Comment: Erica iturates screening cut off value = 200 ng/mL Performed By: #### D YOUSSEF #### [facility] ([id number]) [address], [address] [place] [address] BENZODIAZEPINES Negative Normal NEG [facility] Comment on above: Result Comment: Jorge odiazepines screening cut off value = 200 ng/mL Performed By: #### D YOUSSEF #### [facility] ([id number]) [address], [address] [place] [address] CANNABINOIDS Negative Normal NEG [facility] Comment on above: Result Comment: Radha abinoids/THC screening cut off value = 50 ng/mL Performed By: #### D YOUSSEF #### [facility] ([id number]) [address], [address] [place] [address] COCAINE METABOLITE Negative Normal NEG [facility] Comment on above: Result Comment: Coca ine screening cut off value = 300 ng/mL Performed By: #### D YOUSSEF #### [facility] ([id number]) [address], [address] [place] [address] ECSTASY Negative Normal NEG [facility] Comment on above: Result Comment: Ecst asy screening cut off value = 500 ng/mL This report is intended for use in clinical monitoring or management of patients. Performed By: #### D YOUSSEF #### [facility] ([id number]) [address], [address] [place] [address] METHADONE Negative Normal NEG [facility] Comment on above: Result Comment: Meth adone screening cut off value = 300 ng/mL. Performed By: #### D YOUSSEF #### [facility] ([id number]) [address], [address] [place] [address] OPIATES Negative Normal NEG [facility] Comment on above: Result Comment: Opia torrey screening cut off value = 300 ng/mL NOTE: This test is used for the detection of codeine, hydrocodone (>1000 ng/mL), morphine and hydromorphone (>900 ng/mL) in urine. Performed By: #### D YOUSSEF #### [facility] ([id number]) [address], [address] [place] [address] OXYCODONE Negative Normal NEG [facility] Comment on above: Result Comment: Oxyc odone screening cut off value = 300 ng/mL NOTE: This test is used for the detection of oxycodone and oxymorphone in urine. Performed By: #### D YOUSSEF #### [facility] ([id number]) [address], [address] [place] [address] PHENCYCLIDINE Negative Normal NEG [facility] Comment on above: Result Comment: Phen cyclidine screening cut off value = 25 ng/mL Performed By: #### D YOUSSEF #### [facility] ([id number]) [address], [address] [place] [address] FERRITINon 08-04-2024 Ferritin [Mass/Vol] 15 ng/mL Normal [address] [facility] Comment on above: Performed By: #### C MP, CBCA, 2276-4, 2284-8, 2132-9, 81246-2 #### [facility] ([id number]) [address] [place] [address] Folate [Mass/Vol]on 08-04-20 24 FOLIC ACID 16.4 ng/mL Normal >5.8 [facility] Comment on above: Result Comment: NEW REFERENCE RANGE Performed By: #### C MP, CBCA, 2276-4, 2284-8, 2132-9, 44206-6 #### [facility] ([id number]) [address], [address] [place] [address] Glucose Glucometer (BldC) [M ass/Vol]on 08-04-2024 Glucose [Mass/Vol] 82 mg/dL Normal 65-99 [facility] MR ABDOMEN WO CONTon 024 MR [...] 10:11 AM. This will be documented in R2G results tracking once complete. Finalized by Douglas Kumar on 08/04/2024 10:12 AM Normal [facility] MR PELVIS WO CONTon 08-04-20 24 MR [...] 10:11 AM. This will be documented in R2G results tracking once complete. Finalized by Douglas Kumar on 08/04/2024 10:12 AM Normal [facility] PROTIME AND INRon 08-04-2024 INR Coag (PPP) [Relative time] 1.0 {INR} Normal 0.8-1.1 [facility] Comment on above: Performed By: #### C MP, CBCA, 2276-4, 2284-8, 2-9, 18218-9 #### [facility] ([id number]) [address], [address] [place] [address] PT Coag (PPP) [Time] 11.8 s Normal 9.8-13.2 [facility] Comment on above: Performed By: #### C MP, CBCA, 2276-4, 2284-8, 2132-9, 00944-5 #### [facility] ([id number]) [address] [place] [address] STREP B SCREEN CULTUREon S. agalactiae Org specific cx Ql (Vag+Rectum) CULTURE RESULTS NEGATIVE FOR GROUP B STREPTOCOCCUS BY NUCLEIC ACID AMPLIFICATION Normal [facility] Comment on above: Performed By: #### C MP, CBCA, 2276-4, 2284-8, 2-9, 93059-6 #### [facility] ([id number]) [address], [address] [place] [address] T. pallidum IgG+IgM IA Ql (S )on 08-04-2024 Syphilis Total <0.2 Normal 0.0-0.8 [facility] Comment on above: Result Comment: NON REACTIVE No serologic evidence of infection to Treponema pallidum (syphilis). Repeat testing may be considered in patients with suspected acute or primary syphilis in 2 to 4 weeks. Performed By: #### C MP, CBCA, 2276-4, 2284-8, 2131-9, 17963-2 #### [facility] ([id number]) [address], [address] [place] [address] URINALYSISon 08-04-2024 Bilirubin Ql (U) Negative Normal NEG [facility] Comment on above: Performed By: #### U A #### [facility] ([id number]) [address], [address] [place] [address] BLOOD/HGB Negative Normal NEG [facility] Comment on above: Performed By: #### U A #### [facility] ([id number]) [address], [address] [place] [address] Color (U) YELLOW Normal YELLOW [facility] Comment on above: Performed By: #### U A #### [facility] ([id number]) [address], [address] [place] [address] Glucose Ql (U) Negative Normal NEG [facility] Comment on above: Performed By: #### U A #### [facility] ([id number]) [address], [address] [place] [address] Ketones Ql (U) 20 mg/dL Abnormal NEG [facility] Comment on above: Performed By: #### U A #### [facility] ([id number]) [address], [address] [place] [address] Leukocyte esterase Test strip Ql (U) Small Abnormal NEG [facility] Comment on above: Performed By: #### U A #### [facility] ([id number]) [address], [address] [place] [address] MUCOUS PRESENT Abnormal NONE [facility] Comment on above: Performed By: #### U A #### [facility] ([id number]) [address], [address] [place] [address] Nitrite Ql (U) Negative Normal NEG [facility] Comment on above: Performed By: #### U A #### [facility] ([id number]) [address], [address] [place] [address] pH (U) 6.5 [pH] Normal 5.0-8.5 [facility] Comment on above: Performed By: #### U A #### [facility] ([id number]) [address], [address] [place] [address] Protein Ql (U) Trace Abnormal NEG [facility] Comment on above: Performed By: #### U A #### [facility] ([id number]) [address], [address] [place] [address] R.B.CELLS 1 /hpf Normal 0-5 [facility] Comment on above: Performed By: #### U A #### [facility] ([id number]) [address], [address] [place] [address] Specific gravity (U) [Rel density] 1.016 Normal 1.003-1.035 [facility] Comment on above: Performed By: #### U A #### [facility] ([id number]) [address], [address] [place] [address] SQUAMOUS EPITHELIUM 3 /hpf Normal 0-[address] [facility] Comment on above: Performed By: #### U A #### [facility] ([id number]) [address], [address] [place] [address] TURBIDITY CLEAR Normal CLEAR [facility] Comment on above: Performed By: #### U A #### [facility] ([id number]) [address], [address] [place] [address] Urobilinogen (U) [Mass/Vol] mg/dL Normal <1.1 [facility] Comment on above: Performed By: #### U A #### [facility] ([id number]) [address], [address] [place] [address] W.B.CELLS 2 /hpf Normal 0-5 [facility] Comment on above: Performed By: #### U A #### [facility] ([id number]) [address], [address] [place] [address] URINE CULTUREon 08-04-2024 Bacteria identified Cx Nom (U) CULTURE RESULTS NO GROWTH AT <1000 CFU/mL Normal [facility] Comment on above: Performed By: #### C MP, CBCA, 6-4, 2283-8, 2132-06, 34003-1 #### [facility] ([id number]) [address], [address] [place] [address] VITAMIN B12on 08-04-2024 Cobalamin (Vitamin B12) [Mass/Vol] 138 pg/mL Low 180-914 [facility] Comment on above: Performed By: #### C MP, CBCA, 2276-4, 2284-8, 9, 34839-6 #### [facility] ([id number]) [address] [facility], [address] [place] [address] Urinalysis macro (dipstick) panel (U)on 07-29-2024 Bilirubin, UA Negative Negative - 4(70) +++ mg/dL [facility] Blood, UA Negative Negative - 50 Jd/mcL [facility] Clarity, UA Clear [facility] re Color, UA Yellow [facility] Glucose, UA Negative Negative - 1999(110) ++++ mg/dL [facility] Interpretation and review of laboratory results Normal [facility] Ketones, UA Negative Negative - 160(16) ++++ mg/dL [facility] Leukocytes, UA Negative Negative - 500+++ Mookie/mcL [facility] Nitrite, UA Negative Negative - Positive [facility] pH, UA 7 5 - 9 [facility] Protein, UA Negative Negative - 1999(20) ++++ mg/dL [facility] Spec Grav, UA 1.015 1 - 1.03 [facility] Urobilinogen, UA 0.2 0.2 - 12 mg/dL [facility] [employer] e IGP,APTIMA HPV,AGE GDLNon AGE GDLN ACOG TESTING Note . [facility] Comment on above: TESTS RESULT FLAG UN ITS REF RANGE LAB Clinician Provided Cytology Information Source.............Cervix Other.............. No. of containers..01 ThinPrep Vial Age Algo ACOG Torrey... FLAG LEGEND: L-Low Normal,H-High Normal,LL-Alert Low,HH-Alert High <-Panic Low,>-Panic High,A-Abnormal,AA-Critical Abnormal Performed at: 01 =G [facility] [address] [place] [address] Leticia Longo MD, IGP, RFX APTIMA HPV ASCU Note . [facility] Comment on above: TESTS RESULT FLAG UN ITS REF RANGE LAB DIAGNOSIS: 02 NEGATIVE FOR INTRAEPITHELIAL LESION OR MALIGNANCY. THIS SPECIMEN WAS RESCREENED PART OF OUR COSMETOLOGY TEACHER PROGRAM. Specimen adequacy: 02 Satisfactory for evaluation. No endocervical component is identified. Performed by: Ehsan Jamison, Academic Services Professional (ASCP) QC reviewed by: 02 Nicole Houston, Academic Services Professional . 02 Note: Note 02 The Pap [...] <-Panic Low,>-Panic High,A-Abnormal,AA-Critical Abnormal Performed at: [address] [phone] Leticia Longo MD, Performed at: = - [facility] [id number] [employer]: Leticia Longo MD, Phone: [phone] Performed at: [facility] [id number] [employer]: Leticia Longo MD, Phone: [phone] [facility] URETHRITIS/DISCHARGE PLUS VA GINITIS (HTRX)on 07-05-2024 ATOPOBIUM VAGINAE 0.000 [facility] ATOPOBIUM VAGINAE Not detected [facility] BVAB 2,3 (BACTERIAL VAGINOSIS ASSOCIATED BACTERIA 2, 3); MOBILUNCUS SPP 0.000 [facility] BVAB 2,3 (BACTERIAL VAGINOSIS ASSOCIATED BACTERIA 2, 3); MOBILUNCUS SPP Not detected [facility] ASHLEY ALBICANS, PARAPSILOSIS, TROPICALIS 0.000 [facility] ASHLEY ALBICANS, PARAPSILOSIS, TROPICALIS Not detected [facility] ASHLEY GLABRATA 0.000 [facility] ASHLEY GLABRATA Not detected [facility] ASHLEY KRUSEI 0.000 [facility] ASHLEY KRUSEI Not [facility] CHLAMYDIA TRACHOMATIS 0.000 [facility] CHLAMYDIA TRACHOMATIS Not detected [facility] GARDNERELLA VAGINALIS 0.000 [facility] GARDNERELLA VAGINALIS Not detected [facility] MEGASPHAERA (TYPES 1, 2) 0.000 [facility] MEGASPHAERA (TYPES 1, 2) Not detected [facility] MYCOPLASMA GENITALIUM 0.000 [facility] MYCOPLASMA GENITALIUM Not detected [facility] NEISSERIA GONORRHOEAE 0.000 [facility] NEISSERIA GONORRHOEAE Not detected [facility] TRICHOMONAS VAGINALIS 0.000 [facility] TRICHOMONAS VAGINALIS Not detected [facility] Urinalysis macro (dipstick) panel (U)on 06-05-2024 Bilirubin, UA Negative Negative - 4(70) +++ mg/dL [facility] Blood, UA Negative Negative - 50 Jd/mcL [facility] Clarity, UA Clear [facility] re Color, UA Yellow [facility] Glucose, UA Negative Negative - 1999(110) ++++ mg/dL [facility] Interpretation and review of laboratory results Normal [facility] Ketones, UA Negative Negative - 160(16) ++++ mg/dL [facility] Leukocytes, UA Negative Negative - 500+++ Mookie/mcL [facility] Nitrite, UA Negative Negative - Positive [facility] pH, UA 6.5 5 - 9 [facility] Protein, UA Negative Negative - 1999(20) ++++ mg/dL [facility] Spec Grav, UA 1.015 1 - 1.03 [facility] Urobilinogen, UA 1.0 0.2 - 12 mg/dL [facility] CBC AND AUTO DIFFon 03-11-20 ABSOLUTE BASOPHIL 0.0 X10E9/L Normal 0.0-0.2 [facility] Comment on above: Performed By: #### C AUREA VALENTINE, #### [facility] ([id number]) [address] [place] [address] ABSOLUTE NEUTROPHIL 7.1 X10E9/L High 1.5-6.6 [facility] Comment on above: Performed By: #### Dar VALENTINE CMP, #### [facility] ([id number]) [address] [place] [address] Basophils/100 WBC (Bld) 0.2 % Normal [facility] Comment on above: Performed By: #### Dar VALENTINE CMP, #### [facility] ([id number]) [address] [place] [address] Eosinophils (Bld) [#/Vol] 0.0 10*3/uL Normal 0.0-0.4 [facility] Comment on above: Performed By: #### Dar VALENTINE CMP, #### [facility] ([id number]) [address] [place] [address] Eosinophils/100 WBC (Bld) 0.4 % Normal [facility] Comment on above: Performed By: #### Dar VALENTINE CMP, #### [facility] ([id number]) [address] [place] [address] Erythrocyte distribution width (RBC) [Ratio] 13.4 % Normal 11.5-15.0 [facility] Comment on above: Performed By: #### Dar VALENTINE CMP, #### [facility] ([id number]) [address] [place] [address] Hematocrit (Bld) [Volume fraction] 39.9 % Normal 35-47 [facility] Comment on above: Performed By: #### Dar VALENTINE CMP, #### [facility] ([id number]) [address] [place] [address] Hemoglobin (Bld) [Mass/Vol] 13.9 g/dL Normal 11.7-15.5 [facility] Comment on above: Performed By: #### Dar VALENTINE CMP, #### [facility] ([id number]) [address] [place] [address] Lymphocytes (Bld) [#/Vol] 2.0 10*3/uL Normal 1.0-3.5 [facility] Comment on above: Performed By: #### Dar VALENTINE CMP, #### [facility] ([id number]) [address] [place] [address] Lymphocytes/100 WBC (Bld) 20.6 % Normal [facility] Comment on above: Performed By: #### Dar VALENTINE CMP, #### [facility] ([id number]) [address] [place] [address]284 MCH (RBC) [Entitic mass] 29.4 pg Normal 27-34 [facility] Comment on above: Performed By: #### Dar VALENTINE CMP, #### [facility] ([id number]) [address] [place] [address] MCHC (RBC) [Mass/Vol] 34.9 g/dL Normal 32-36 [facility] Comment on above: Performed By: #### C AUREA VALENTINE, #### [facility] ([id number]) [address] [place] [address] 15165 MCV (RBC) [Entitic vol] 84 fL Normal 80-100 [facility] Comment on above: Performed By: #### C AUREA VALENTINE, #### [facility] ([id number]) [address] [place] [address] Monocytes (Bld) [#/Vol] 0.7 10*3/uL Normal 0-0.9 [facility] Comment on above: Performed By: #### Dar VALENTINE CMP, #### [facility] ([id number]) [address] [place] [address] Monocytes/100 WBC (Bld) 7.4 % Normal [facility] Comment on above: Performed By: #### Dar VALENTINE CMP, #### [facility] ([id number]) [address] [place] [address] 20673 Neutrophils/100 WBC (Bld) 71.4 % Normal [facility] Comment on above: Performed By: #### Dar VALENTINE CMP, #### [facility] ([id number]) [address] [place] [address] Platelet mean volume (Bld) [Entitic vol] 9.0 fL Normal 7-12 [facility] Comment on above: Performed By: #### Dar VALENTINE, CMP, #### [facility] ([id number]) [address] [place] [address]326 Platelets (Bld) [#/Vol] 194 10*3/uL Normal 150-450 [facility] Comment on above: Performed By: #### C BCA, CMP, #### [facility] ([id number]) [address] [place] [address] 63957 RBC COUNT 4.74 X10E12/L Normal 3.80-5.20 [facility] Comment on above: Performed By: #### C BCA, CMP, #### [facility] ([id number]) [address] [place] [address]41 WBC (Bld) [#/Vol] 10.0 10*3/uL Normal 4.0-11.[address] [facility] Comment on above: Performed By: #### C BCA, CMP, #### [facility] ([id number]) [address] [place] [address] COMPREHENSIVE METABOLIC PANE Vini 03-11-2024 Albumin [Mass/Vol] 4.2 g/dL Normal 3.2-5.3 [facility] Comment on above: Performed By: #### C BCA, CMP, #### [facility] ([id number]) [address] [place] [address]148 ALP [Catalytic activity/Vol] 47 U/L Normal 39-130 [facility] Comment on above: Performed By: #### C BCA, CMP, #### [facility] ([id number]) [address] [place] [address] 46608 ALT [Catalytic activity/Vol] 15 U/L Normal 0-31 [facility] Comment on above: Performed By: #### C BCA, CMP, #### [facility] ([id number]) [address] [place] [address] Anion gap [Moles/Vol] 7 mmol/L Normal 5-15 [facility] Comment on above: Performed By: #### C BCA, CMP, #### [facility] ([id number]) [address] [place] [address] [place] [address] AST [Catalytic activity/Vol] 15 U/L Normal 0-41 [facility] Comment on above: Performed By: #### C BCA, CMP, #### [facility] ([id number]) [address] [place] [address]355 Bilirubin [Mass/Vol] 0.5 mg/dL Normal 0.3-1.2 [facility] Comment on above: Performed By: #### C BCA, CMP, #### [facility] ([id number]) [address] [place] [address] 92556 Calcium [Mass/Vol] 8.7 mg/dL Normal 8.5-10.5 [facility] Comment on above: Performed By: #### C BCA, CMP, #### [facility] ([id number]) [address] [place] [address] 31310 Chloride [Moles/Vol] 103 mmol/L Normal 98-109 [facility] Comment on above: Performed By: #### C BCA, CMP, #### [facility] ([id number]) [address] [place] [address] 41868 CO2 [Moles/Vol] 22 mmol/L Normal 22-32 [facility] Comment on above: Performed By: #### C BCA, CMP, #### [facility] ([id number]) [address] [place] [address] 21734 Creatinine [Mass/Vol] 0.72 mg/dL Normal 0.40-1.00 [facility] Comment on above: Result Comment: METH OD TRACEABLE TO IDMS STANDARD Performed By: #### C AUREA VALENTINE, #### [facility] ([id number]) [address] [place] [address]11 eGFR (CKD-EPI) NON-RACE DEPENDENT >90 Normal >59 [facility] Comment on above: Result Comment: Reported eGFR is based on the CKD-EPI 2020 equation that does not use a race coefficient. Performed By: #### C AUREA VALENTINE, #### [facility] ([id number]) [address] [place] [address] 83369 Glucose [Mass/Vol] 81 mg/dL Normal 65-99 [facility] Comment on above: Performed By: #### C AUREA VALENTINE, #### [facility] ([id number]) [address] [place] [address] 89926 Potassium [Moles/Vol] 3.7 mmol/L Normal 3.5-5.0 [facility] Comment on above: Performed By: #### C [facility], #### [facility] ([id number]) [address] [place] [address] 48296 Protein [Mass/Vol] 7.4 g/dL Normal 6.0-8.0 [facility] Comment on above: Performed By: #### C AUREA VALENTINE, #### [facility] ([id number]) [address] [place] [address] 03273 Sodium [Moles/Vol] 132 mmol/L Low 134-146 [facility] Comment on above: Performed By: #### C AUREA VALENTINE, #### [facility] ([id number]) [address] [place] [address] 84895 Urea nitrogen [Mass/Vol] 14 mg/dL Normal 5-23 [facility] Comment on above: Performed By: #### C [facility], 32998-3 #### [facility] ([id number]) [address] [place] [address] [id number] HCG ( test) Ql (U)o n 03-11-2024 Beta HCG ( test) Ql (U) Positive Abnormal NEG [facility] Comment on above: Performed By: #### 2 106-3 #### [facility] ([id number]) [address] [place] [address] 34482 HCG.beta subunit IA 3rd IS Q non 03-11-2024 HCG.beta subunit Qn 419202 m[IU]/mL Normal [facility] Comment on above: Result Comment: NEW [...] or nontrophoblastic neoplasms. Performed By: #### C [facility], 71414-6 #### [facility] ([id number]) [address] [place] [id number] URINE CULTUREon 03-11-2024 Bacteria identified Cx Nom (U) CULTURE RESULTS <10,000 ORGANISMS/ML NORMAL URO GENITAL RICK Normal [facility] Comment on above: Performed By: #### 6 30-4 #### [facility] ([id number]) [address] [place] [address], [address] [place] [address] URN MACROSCOPIC NURon 2023 BILIRUBIN FAWAD Negative Normal NEG [facility] Comment on above: Performed By: #### N UM #### [facility] ([id number]) [address] [place] [address] BLOOD/HGB FAWAD Negative Normal NEG [facility] Comment on above: Performed By: #### N UM #### [facility] ([id number]) [address] [place] [address] GLUCOSE FAWAD Negative Normal NEG [facility] Comment on above: Performed By: #### N UM #### [facility] ([id number]) [address] [place] [address] [place] [address] KETONES FAWAD Negative Normal NEG [facility] Comment on above: Performed By: #### N UM #### [facility] ([id number]) [address] [place] [address] LEUKOCYTE ESTERASE FAWAD Trace Abnormal NEG [facility] Comment on above: Performed By: #### N UM #### [facility] ([id number]) [address] [place] [address] NITRITE FAWAD Negative Normal NEG [facility] Comment on above: Performed By: #### N UM #### [facility] ([id number]) [address] [place] [address] [place] [address] PH FAWAD 6.5 Normal 5.0-8.5 [facility] Comment on above: Performed By: #### N UM #### [facility] ([id number]) [address] [place] [address] [place] [address] PROTEIN FAWAD Negative Normal NEG [facility] Comment on above: Performed By: #### N UM #### [facility] ([id number]) [address] [place] [address] [place] [address] SPECIFIC GRAVITY FAWAD 1.010 Normal 1.003-1.035 [facility] Comment on above: Performed By: #### N UM #### [facility] ([id number]) [address] [place] [address] UROBILINOGEN FAWAD 0.2 eu/dL Normal <1.1 [facility] Comment on above: Performed By: #### N UM #### [facility] ([id number]) [address] [place] [address] ABDOMEN AND PELVIS WO CON Ton [...] 11/26/2023 5:33 PM Normal [facility] HCG ( test) Ql (U)o n 11-26-2023 Beta HCG ( test) Ql (U) Negative Normal NEG [facility] Comment on above: Performed By: #### 2 106-3 #### [facility] ([id number]) [address] [place] [address] URINE CULTUREon 11-26-2023 Bacteria identified Cx Nom [...] S <=1/19 F Susceptible [facility] Comment on above: Performed By: #### 6 30-4 #### [facility] ([id number]) [address] [place] [address], [address] [place] [address] URN MACROSCOPIC NURon 2023 BILIRUBIN FAWAD Negative Normal [facility] Comment on above: Performed By: #### N UM #### [facility] ([id number]) [address] [place] [address] BLOOD/HGB FAWAD Trace Abnormal NEG [facility] Comment on above: Performed By: #### N UM #### [facility] ([id number]) [address] [place] [address] GLUCOSE FAWAD Negative Normal [facility] Comment on above: Performed By: #### N UM #### [facility] ([id number]) [address] [place] [address] KETONES FAWAD Negative Normal NEG [facility] Comment on above: Performed By: #### N UM #### [facility] ([id number]) [address] [place] [address] LEUKOCYTE ESTERASE FAWAD Trace Abnormal NEG [facility] Comment on above: Performed By: #### N UM #### [facility] ([id number]) [address] [place] [address] NITRITE FAWAD Negative Normal NEG [facility] Comment on above: Performed By: #### N UM #### [facility] ([id number]) [address] [place] [address] PH FAWAD 7.0 Normal 5.0-8.5 [facility] Comment on above: Performed By: #### N UM #### [facility] ([id number]) [address] [place] [address] PROTEIN FAWAD Negative Normal NEG [facility] Comment on above: Performed By: #### N UM #### [facility] ([id number]) [address] [place] [address] SPECIFIC GRAVITY FAWAD 1.020 Normal 1.003-1.035 [facility] Comment on above: Performed By: #### N UM #### [facility] ([id number]) [address] [place] [address] UROBILINOGEN FAWAD 0.2 eu/dL Normal <1.1 [facility] Comment on above: Performed By: #### N UM #### [facility] ([id number]) [address] [place] [address] ED Note-Physicianon 09-29-20 ED Note-Physician [id number] #[id number] Normal [facility] Urinalysis - AUTOMATEDon Appearance (U) clear [employer] Other Bilirubin Ql (U) Negative [place] [facility] [employer] Other Color (U) light yellow [employer] Other Glucose Ql (U) Negative [employer] Other Hemoglobin Ql (U) Negative [employer] Other Ketones Ql (U) Negative [employer] Other Leukocyte esterase Test strip Ql (U) Negative [employer] Other Nitrite Ql (U) Negative [employer] Other pH (U) 6.0 [pH] [employer] Other Protein Ql (U) Negative [employer] Other Specific gravity (U) [Rel density] >1.030 [employer] Other Urobilinogen (U) [Mass/Vol] 0.2 mg/dL [employer] Other Urinalysis - AUTOMATED [employer] Other Vaginitis Plus (VG+)on 07-17 Vaginitis Plus (VG+) Negative Negative [employer] Other Vaginitis Plus (VG+) Low - 0 . [employer] Other CBC AUTO DIFFon 12-27-2022 BASO # 0.0 103/ul Normal 0.0-0.1 [facility] Comment on above: Performed By: #### R PRQ #### [facility] [address] [place] [address] Dr. Valerio Alexis Basophils/100 WBC (Bld) 0.2 % Normal 0.2-2.0 [facility] Comment on above: Performed By: #### R PRQ #### [facility] [address] [place] [address] Dr. Valerio Alexis EO # 0.1 103/ul Normal 0.0-0.7 [facility] Comment on above: Performed By: #### R PRQ #### [facility] [address] [place] [address] Dr. Valerio Alexis Eosinophils/100 WBC (Bld) 0.6 % Critically low 0.9-7.0 [facility] Comment on above: Performed By: #### R PRQ #### [facility] [address] [place] [address] Dr. Valerio Alexis Erythrocyte distribution width (RBC) [Ratio] 14.1 % Normal 11.0-15.0 [facility] Comment on above: Performed By: #### R PRQ #### [facility] [address] [place] [address] Dr. Valerio Alexis Hematocrit (Bld) [Volume fraction] 35.7 % Critically low 36.0-48.0 [facility] Comment on above: Performed By: #### R PRQ #### [facility] [address] [place] [address] Dr. Valerio Alexis Hemoglobin (Bld) [Mass/Vol] 11.9 g/dL Critically low 12.0-16.0 [facility] Comment on above: Performed By: #### R PRQ #### [facility] [address] [place] [address] Dr. Valerio Alexis IG # 0.02 10e3/ul Normal 0.00-0.03 [facility] Comment on above: Performed By: #### R PRQ #### [facility] [address] [place] [address] Dr. Valerio Alexis IG % 0.2 % Normal 0.0-0.5 [facility] Comment on above: Performed By: #### R PRQ #### [facility] [address] [place] [address] Dr. Valerio Alexis LYMPH # 1.0 103/ul Critically low 1.2-3.8 [facility] Comment on above: Performed By: #### R PRQ #### [facility] [address] [place] [address] Dr. Valerio Alexis Lymphocytes/100 WBC (Bld) 12.4 % Critically low 20.5-60.0 [facility] Comment on above: Performed By: #### R PRQ #### [facility] [address] [place] [address] Dr. Valerio Alexis MANUAL DIFF REQ NO Normal [facility] Comment on above: Performed By: #### R PRQ #### [facility] [address] [place] [address] Dr. Valerio Alexis MCH (RBC) [Entitic mass] 26.7 pg Normal 26.7-34.0 [facility] Comment on above: Performed By: #### R PRQ #### [facility] [address] [place] [address] Dr. Valerio Alexis MCHC (RBC) [Mass/Vol] 33.3 g/dL Normal 29.9-35.2 [facility] Comment on above: Performed By: #### R PRQ #### [facility] [address] [place] [address] Dr. Valerio Alexis MCV (RBC) [Entitic vol] 80.2 fL Critically low 81.0-99.0 [facility] Comment on above: Performed By: #### R PRQ #### [facility] [address] [place] [address] Dr. Valerio Alexis MONO # 0.8 103/ul Normal 0.3-0.8 [facility] Comment on above: Performed By: #### R PRQ #### [facility] [address] [place] [address] Dr. Valerio Alexis Monocytes/100 WBC (Bld) 9.3 % Normal 1.7-12.0 [facility] Comment on above: Performed By: #### R PRQ #### [facility] [address] [place] [address] Dr. Valerio Alexis NEUT # 6.3 103/ul Normal 1.4-6.5 [facility] Comment on above: Performed By: #### R PRQ #### [facility] [address] [place] [address] Dr. Valerio Alexis Neutrophils/100 WBC (Bld) 77.3 % Critically high 43.0-75.0 [facility] Comment on above: Performed By: #### R PRQ #### [facility] [address] [place] [address] Dr. Valerio Alexis Platelet mean volume (Bld) [Entitic vol] 10.6 fL Normal 9.5-13.5 [facility] Comment on above: Performed By: #### R PRQ #### [facility] [address] [place] [address] Dr. Valerio Alexis PLT 192 103/ul Normal 150-450 [facility] Comment on above: Performed By: #### R PRQ #### [facility] [address] [place] [address] Dr. Valerio Alexis RBC 4.45 106/ul Normal 4.20-5.40 [facility] Comment on above: Performed By: #### R PRQ #### [facility] [address] [place] [address] Dr. Valerio Alexis WBC 8.2 103/ul Normal 4.0-11.0 [facility] Comment on above: Performed By: #### R PRQ #### [facility] [address] [place] [address] Dr. Valerio Alexis GI PANEL (PCR)on 12-27-2022 Adenovirus F 40/41 Not detected Normal NOT DETECTED [facility] Comment on above: Performed By: #### U RCX #### [facility] [address] [place] [address] Dr. Valerio Alexis Astrovirus Not detected Normal NOT DETECTED [facility] Comment on above: Performed By: #### U RCX #### [facility] [address] [place] [address] Dr. Valerio Alexis C. Diff toxin A/B Not detected Normal NOT DETECTED [facility] Comment on above: Performed By: #### U RCX #### [facility] [address] [place] [address] Dr. Valerio Alexis Campylobacter Detected Critically abnormal NOT DETECTED [facility] Comment on above: Performed By: #### U RCX #### [facility] [address] [place] [address] Dr. Valerio Alexis Cryptosporidium Not detected Normal NOT DETECTED [facility] Comment on above: Performed By: #### U RCX #### [facility] [address] [place] [address] Dr. Valerio Alexis Cyclos. Cayetanensis Not detected Normal NOT DETECTED [facility] Comment on above: Performed By: #### U RCX #### [facility] [address] [address] [address] Valerio Alexis E. Coli O157 Not Applicable Normal Not Applicable [facility] Comment on above: Performed By: #### U RCX #### [facility] [address] [place] [address] Dr. Valerio Alexis E. histolytica Not detected Normal NOT DETECTED [facility] Comment on above: Performed By: #### U RCX #### [facility] [address] [place] [address] Dr. Valerio Alexis EAEC Not detected Normal NOT DETECTED [facility] Comment on above: Performed By: #### U RCX #### [facility] [address] [place] [address] Dr. Valerio Alexis EIEC Not detected Normal NOT DETECTED [facility] Comment on above: Performed By: #### U RCX #### [facility] [address] [place] [address] Dr. Valerio Alexis EPEC Not detected Normal NOT DETECTED [facility] Comment on above: Performed By: #### U RCX #### [facility] [address] [place] [address] Dr. Valerio Alexis ETEC Not detected Normal NOT DETECTED [facility] Comment on above: Performed By: #### U RCX #### [facility] [address] [place] [address] Dr. Valerio Alexis G. Lamblia Not detected Normal NOT DETECTED [facility] Comment on above: Performed By: #### U RCX #### [facility] [address] [place] [address] Dr. Valerio DE OLIVEIRAL CONTROLS PASSED Normal [facility] Comment on above: Performed By: #### U RCX #### [facility] [address] [place] [address] Dr. Valerio HARRIS EDE HEADER GI PANEL BACTERIA Normal [facility] Comment on above: Performed By: #### U RCX #### [facility] [address] [place] [address] Dr. Valerio HARRISHD ECOLI GI PANEL DIARRHEAGENIC E.COLI / SHIGELLA Normal [facility] Comment on above: Performed By: #### U RCX #### [facility] [address] [address] [address] Valerio LÓPEZ INFO SEE BELOW Normal [facility] Comment on above: Result Comment: EAEC - Enteroaggregative E. Coli EPEC- Enteropathogenic E. Coli ETEC- Enterotoxigenic E. Coli lt/st STEC- Shigella-like toxin-producing E. Coli stx1/stx2 EIEC- Shigella/Enteroinvasive E. Coli Performed By: #### U RCX #### [facility] [address] [address] [address] Valerio LÓPEZ PARASITES GI PANEL PARASITES Normal [facility] Comment on above: Performed By: #### U RCX #### [facility] [address] [address] [address] Valerio LÓPEZ VIRUS GI PANEL VIRUSES Normal [facility] Comment on above: Performed By: #### U RCX #### [facility] [address] [place] [address] Dr. Valerio Alexis Norovirus GI/GII Not detected Normal NOT DETECTED [facility] Comment on above: Performed By: #### U RCX #### [facility] [address] [address] [address] Valerio Alexis P. Shigelloides Not detected Normal NOT DETECTED [facility] Comment on above: Performed By: #### U RCX #### [facility] [address] [address] [address] Valerio Alexis Rotavirus A Not detected Normal NOT DETECTED [facility] Comment on above: Performed By: #### U RCX #### [facility] [address] [address] [address] Valerio Alexis Salmonella Not detected Normal NOT DETECTED [facility] Comment on above: Performed By: #### U RCX #### [facility] [address] [place] [address] Dr. Valerio Alexis Sapovirus Not detected Normal NOT DETECTED [facility] Comment on above: Performed By: #### U RCX #### [facility] [address] [place] [address] Dr. Valerio Alexis STEC Not detected Normal NOT DETECTED [facility] Comment on above: Performed By: #### U RCX #### [facility] [address] [place] [address] Dr. Valerio Alexis Vibrio Not detected Normal NOT DETECTED [facility] Comment on above: Performed By: #### U RCX #### [facility] [address] [place] [address] Dr. Valerio Alexis Vibrio Cholera Not detected Normal NOT DETECTED [facility] Comment on above: Performed By: #### U RCX #### [facility] [address] [place] [address] Dr. Valerio Alexis Y. Enterocolitica Not detected Normal NOT DETECTED [facility] Comment on above: Performed By: #### U RCX #### [facility] [address] [place] [address] Dr. Valerio Alexis PROF CHEM 8 (BAS METB)on Anion gap [Moles/Vol] 14.7 mmol/L Normal [facility] Comment on above: Performed By: #### R PRQ #### [facility] [address] [place] [address] Dr. Valerio Alexis Calcium [Mass/Vol] 8.8 mg/dL Normal 8.5-10.1 [facility] Comment on above: Performed By: #### R PRQ #### [facility] [address] [place] [address] Dr. Valerio Alexis Chloride [Moles/Vol] 104 mmol/L Normal 98-107 [facility] Comment on above: Performed By: #### R PRQ #### [facility] [address] [place] [address] Dr. Valerio Alexis CO2 [Moles/Vol] 23.6 mmol/L Normal 21.0-32.0 [facility] Comment on above: Performed By: #### R PRQ #### [facility] [address] [place] [address] Dr. Valerio Alexis Creatinine [Mass/Vol] 0.72 mg/dL Normal 0.55-1.02 [facility] Comment on above: Performed By: #### R PRQ #### [facility] [address] [place] [address] Dr. Valerio Alexis EGFR-AF MOLDOVAN >60 Normal >=60 [facility] Comment on above: Performed By: #### R PRQ #### [facility] [address] [address] [address] Valerio Alexis EGFR-NON AF MOLDOVAN >60 Normal >=60 [facility] Comment on above: Performed By: #### R PRQ #### [facility] [address] [address] [address] Valerio Alexis Glucose [Mass/Vol] 77 mg/dL Normal 74-106 [facility] Comment on above: Performed By: #### R PRQ #### [facility] [address] [place] [address] Dr. Valerio Alexis Potassium [Moles/Vol] 3.3 mmol/L Critically low 3.5-5.1 [facility] Comment on above: Performed By: #### R PRQ #### [facility] [address] [place] [address] Dr. Valerio Alexis Sodium [Moles/Vol] 139 mmol/L Normal 136-145 [facility] Comment on above: Performed By: #### R PRQ #### [facility] [address] [place] [address] Dr. Valerio Alexis Urea nitrogen [Mass/Vol] 12.0 mg/dL Normal 7.0-18.0 [facility] Comment on above: Performed By: #### R PRQ #### [facility] [address] [address] [address] Valerio Alexis Urea nitrogen/Creatinine [Mass ratio] 16.7 mg/mg Normal [facility] Comment on above: Performed By: #### R PRQ #### [facility] [address] [place] [address] Dr. Valerio Alexis CBC AUTO DIFFon 11-19-2022 BASO # 0.0 103/ul Normal 0.0-0.1 [facility] Comment on above: Performed By: #### H IV12 #### [facility] [address] [place] [address] Dr. Valerio Alexis Basophils/100 WBC (Bld) 0.2 % Normal 0.2-2.0 [facility] Comment on above: Performed By: #### H IV12 #### [facility] [address] [place] [address] Dr. Valerio Alexis EO # 0.1 103/ul Normal 0.0-0.7 [facility] Comment on above: Performed By: #### H IV12 #### [facility] [address] [place] [address] Dr. Valerio Alexis Eosinophils/100 WBC (Bld) 1.7 % Normal 0.9-7.0 [facility] Comment on above: Performed By: #### H IV12 #### [facility] [address] [place] [address] Dr. Valerio Alexis Erythrocyte distribution width (RBC) [Ratio] 13.4 % Normal 11.0-15.0 [facility] Comment on above: Performed By: #### H IV12 #### [facility] [address] [place] [address] Dr. Valerio Alexis Hematocrit (Bld) [Volume fraction] 38.0 % Normal 36.0-48.0 [facility] Comment on above: Performed By: #### H IV12 #### [facility] [address] [place] [address] Dr. Valerio Alexis Hemoglobin (Bld) [Mass/Vol] 12.5 g/dL Normal 12.0-16.0 [facility] Comment on above: Performed By: #### H IV12 #### [facility] [address] [place] [address] Dr. Valerio Alexis IG # 0.02 10e3/ul Normal 0.00-0.03 [facility] Comment on above: Performed By: #### H IV12 #### [facility] [address] [place] [address] Dr. Valerio Alexis IG % 0.3 % Normal 0.0-0.5 [facility] Comment on above: Performed By: #### H IV12 #### [facility] [facility] [address] [place] [address] Dr. Valerio Alexis LYMPH # 1.7 103/ul Normal 1.2-3.8 [facility] Comment on above: Performed By: #### H IV12 #### [facility] [address] [place] [address] Dr. Valerio Alexis Lymphocytes/100 WBC (Bld) 25.9 % Normal 20.5-60.0 [facility] Comment on above: Performed By: #### H IV12 #### [facility] [address] [place] [address] Dr. Valerio Alexis MANUAL DIFF REQ NO Normal [facility] Comment on above: Performed By: #### H IV12 #### [facility] [address] [place] [address] Dr. Valerio Alexis MCH (RBC) [Entitic mass] 26.3 pg Critically low 26.7-34.0 [facility] Comment on above: Performed By: #### H IV12 #### [facility] [address] [place] [address] Dr. Valerio Alexis MCHC (RBC) [Mass/Vol] 32.9 g/dL Normal 29.9-35.2 [facility] Comment on above: Performed By: #### H IV12 #### [facility] [address] [place] [address] Dr. Valerio Alexis MCV (RBC) [Entitic vol] 80.0 fL Critically low 81.0-99.0 [facility] Comment on above: Performed By: #### H IV12 #### [facility] [address] [place] [address] Dr. Vaelrio Alexis MONO # 0.6 103/ul Normal 0.3-0.8 [facility] Comment on above: Performed By: #### H IV12 #### [facility] [address] [place] [address] Dr. Valerio Alexis Monocytes/100 WBC (Bld) 9.2 % Normal 1.7-12.0 [facility] Comment on above: Performed By: #### H IV12 #### [facility] [address] [place] [address] Dr. Valerio Alexis NEUT # 4.1 103/ul Normal 1.4-6.5 [facility] Comment on above: Performed By: #### H IV12 #### [facility] [address] [place] [address] Dr. Valerio Alexis Neutrophils/100 WBC (Bld) 62.7 % Normal 43.0-75.0 [facility] Comment on above: Performed By: #### H IV12 #### [facility] [address] [place] [address] Dr. Valerio Alexis Platelet mean volume (Bld) [Entitic vol] 10.4 fL Normal 9.5-13.5 [facility] Comment on above: Performed By: #### H IV12 #### [facility] [address] [place] [address] Dr. Valerio Alexis PLT 254 103/ul Normal 150-450 [facility] Comment on above: Performed By: #### H IV12 #### [facility] [address] [place] [address] Dr. Valerio Alexis RBC 4.75 106/ul Normal 4.20-5.40 [facility] Comment on above: Performed By: #### H IV12 #### [facility] [address] [place] [address] Dr. Valerio Alexis WBC 6.5 103/ul Normal 4.0-11.0 [facility] Comment on above: Performed By: #### H IV12 #### [facility] [address] [place] [address] ABD/PELVIS WO CONon [...] MAHAD OLIVEROS Date: 2022-11-19 00:58 Normal [facility] ER URINE PROFILEon 3 Bilirubin Ql (U) Negative Normal NEGATIVE [facility] Comment on above: Performed By: #### H H #### [facility] [address] [place] [address] Dr. Valerio Alexis Clarity (U) CLEAR Normal CLEAR [facility] Comment on above: Performed By: #### H H #### [facility] [address] [place] [address] Dr. Valerio Alexis Color (U) LT. YELLOW Normal YELLOW [facility] Comment on above: Performed By: #### H H #### [facility] [address] [place] [address] Dr. Valerio DAVISON A micrscopic examination will be performed if indicated. Normal [facility] Comment on above: Performed By: #### H H #### [facility] [address] [place] [address] Dr. Valerio Alexis Glucose Ql (U) Negative Normal NEGATIVE [facility] Comment on above: Performed By: #### H H #### [facility] [address] [place] [address] Dr. Valerio Alexis Hemoglobin Ql (U) Negative Normal NEGATIVE [facility] Comment on above: Performed By: #### H H #### [facility] [address] [place] [address] Dr. Valerio Alexis Ketones Ql (U) Negative Normal NEGATIVE [facility] Comment on above: Performed By: #### H H #### [facility] [address] [place] [address] Dr. Valerio Alexis LEUKOCYTES Negative Normal NEGATIVE [facility] Comment on above: Performed By: #### H H #### [facility] [address] [place] [address] Dr. Valerio Alexis Nitrite Ql (U) Negative Normal NEGATIVE [facility] Comment on above: Performed By: #### H H #### [facility] [address] [place] [address] Dr. Valerio Alexis pH (U) 6.0 [pH] Normal 5-9 [facility] Comment on above: Performed By: #### H H #### [facility] [address] [place] [address] Dr. Valerio Alexis SPEC GRAVITY 1.010 Normal 1.005-<=1.025 [facility] Comment on above: Performed By: #### H H #### [facility] [address] [place] [address] Dr. Valerio Alexis UA PROTEIN Negative Normal NEGATIVE/ TRACE [facility] Comment on above: Performed By: #### H H #### [facility] [address] [place] [address] Dr. Valerio Alexis UR MICRO IND NOT INDICATED Normal [facility] Comment on above: Performed By: #### H H #### [facility] [address] [place] [address] Dr. Valerio Alexis Urobilinogen Qn (U) 0.2 {Nicolas'U}/dL Normal 0.2 - 1. 0 [facility] Comment on above: Performed By: #### H H #### [facility] [address] [place] [address] Dr. Valerio Alexis PROF CHEM 8 (BAS METB)on Anion gap [Moles/Vol] 12.1 mmol/L Normal [facility] Comment on above: Performed By: #### H H #### [facility] [address] [address] [address] Valerio Alexis Calcium [Mass/Vol] 9.2 mg/dL Normal 8.5-10.1 [facility] Comment on above: Performed By: #### H H #### [facility] [address] [address] [address] Valerio Alexis Chloride [Moles/Vol] 104 mmol/L Normal 98-107 [facility] Comment on above: Performed By: #### H H #### [facility] [address] [address] [address] Valerio Alexis CO2 [Moles/Vol] 27.0 mmol/L Normal 21.0-32.0 [facility] Comment on above: Performed By: #### H H #### [facility] [address] [place] [address] Dr. Valerio Alexis Creatinine [Mass/Vol] 0.75 mg/dL Normal 0.55-1.02 [facility] Comment on above: Performed By: #### H H #### [facility] [address] [address] [address] Valerio Alexis EGFR-AF MOLDOVAN >60 Normal >=60 [facility] Comment on above: Performed By: #### H H #### [facility] [address] [place] [address] Dr. Valerio Alexis EGFR-NON AF MOLDOVAN >60 Normal >=60 [facility] Comment on above: Performed By: #### H H #### [facility] [address] [address] [address] Valerio Alexis Glucose [Mass/Vol] 83 mg/dL Normal 74-106 [facility] Comment on above: Performed By: #### H H #### [facility] [address] [place] [address] Dr. Valerio Alexis Potassium [Moles/Vol] 4.1 mmol/L Normal 3.5-5.1 [facility] Comment on above: Performed By: #### H H #### [facility] [address] [address] [address] Valerio Alexis Sodium [Moles/Vol] 139 mmol/L Normal 136-145 [facility] Comment on above: Performed By: #### H H #### [facility] [address] [place] [address] Dr. Valerio Alexis Urea nitrogen [Mass/Vol] 16.0 mg/dL Normal 7.0-18.0 [facility] Comment on above: Performed By: #### H H #### [facility] [address] [place] [address] Dr. Valerio Alexis Urea nitrogen/Creatinine [Mass ratio] 21.3 mg/mg Normal [facility] Comment on above: Performed By: #### H H #### [facility] [address] [place] [address] Dr. Valerio Alexis CHLAMYDIA/GONOCOCCUS CHULA ( AB/URINE/PAPon 10-27-2022 Chlamydia trachomatis, CHULA Negative Normal Negative [facility] Comment on above: Performed By: #### N BOX #### [facility] [address] [place] [address] Dr. Valerio Alexis Neisseria gonorrhoeae, CHULA Negative Normal Negative [facility] Comment on above: Performed By: #### N BOX #### [facility] [address] [place] [address] Dr. Valerio Alexis VAGINITIS/VAGINOSIS DNA PROB Dane 10-26-2022 Ashley species Negative Normal Negative [facility] Comment on above: Performed By: #### R PRQ #### [facility] [address] [place] [address] Dr. Valerio Alexis Gardnerella vaginalis Positive Abnormal Negative [facility] Comment on above: Performed By: #### R PRQ #### [facility] [address] [place] [address] Dr. Valerio Alexis Trichomonas vaginalis Negative Normal Negative [facility] Comment on above: Performed By: #### R PRQ #### [facility] [address] [place] [address] Dr. Valerio Alexis MICRO OTHER TESTSOrdered By: Cesar Riggs on 09-27-2022 S. pyogenes Ag IA.rapid Ql (Throat) Negative (09/27/22 11:23 PM) Normal Negative [facility] Man Sero CBC AUTO DIFFon 08-25-2022 BASO # 0.0 103/ul Normal 0.0-0.1 [facility] Comment on above: Performed By: #### R PRQ #### [facility] [address] [address] [address] Valerio Alexis Basophils/100 WBC (Bld) 0.3 % Normal 0.2-2.0 [facility] Comment on above: Performed By: #### R PRQ #### [facility] [address] [address] [address] Valerio Alexis EO # 0.1 103/ul Normal 0.0-0.7 [facility] Comment on above: Performed By: #### R PRQ #### [facility] [address] [place] [address] Dr. Valerio Alexis Eosinophils/100 WBC (Bld) 0.7 % Critically low 0.9-7.0 [facility] Comment on above: Performed By: #### R PRQ #### [facility] [address] [address] [address] Valerio Alexis Erythrocyte distribution width (RBC) [Ratio] 13.6 % Normal 11.0-15.0 [facility] Comment on above: Performed By: #### R PRQ #### [facility] [address] [place] [address] Dr. Valerio Alexis Hematocrit (Bld) [Volume fraction] 28.2 % Critically low 36.0-48.0 [facility] Comment on above: Performed By: #### R PRQ #### [facility] [address] [place] [address] Dr. Valerio Alexis Hemoglobin (Bld) [Mass/Vol] 9.6 g/dL Critically low 12.0-16.0 [facility] Comment on above: Performed By: #### R PRQ #### [facility] [address] [place] [address] Dr. Valerio Alexis IG # 0.10 10e3/ul Critically high 0.00-0.03 [facility] Comment on above: Performed By: #### R PRQ #### [facility] [address] [address] [address] Valerio Alexis IG % 0.7 % Critically high 0.0-0.5 [facility] Comment on above: Performed By: #### R PRQ #### [facility] [address] [address] [address] Valerio Alexis LYMPH # 2.2 103/ul Normal 1.2-3.8 [facility] Comment on above: Performed By: #### R PRQ #### [facility] [address] [address] [address] Valerio Alexis Lymphocytes/100 WBC (Bld) 16.5 % Critically low 20.5-60.0 [facility] Comment on above: Performed By: #### R PRQ #### [facility] [address] [address] [address] Valerio Alexis MANUAL DIFF REQ NO Normal [facility] Comment on above: Performed By: #### R PRQ #### [facility] [address] [address] [address] Valerio Alexis MCH (RBC) [Entitic mass] 27.7 pg Normal 26.7-34.0 [facility] Comment on above: Performed By: #### R PRQ #### [facility] [address] [place] [address] Dr. Valerio Alexis MCHC (RBC) [Mass/Vol] 34.0 g/dL Normal 29.9-35.2 [facility] Comment on above: Performed By: #### R PRQ #### [facility] [address] [address] [address] Valerio Alexis MCV (RBC) [Entitic vol] 81.3 fL Normal 81.0-99.0 [facility] Comment on above: Performed By: #### R PRQ #### [facility] [address] [place] [address] Dr. Valerio Alexis MONO # 1.2 103/ul Critically high 0.3-0.8 [facility] Comment on above: Performed By: #### R PRQ #### [facility] [address] [address] [address] Valerio Alexis Monocytes/100 WBC (Bld) 8.7 % Normal 1.7-12.0 [facility] Comment on above: Performed By: #### R PRQ #### [facility] [address] [address] [address] Valerio Alexis NEUT # 9.9 103/ul Critically high 1.4-6.5 [facility] Comment on above: Performed By: #### R PRQ #### [facility] [address] [address] [address] Valerio Alexis Neutrophils/100 WBC (Bld) 73.1 % Normal 43.0-75.0 [facility] Comment on above: Performed By: #### R PRQ #### [facility] [address] [place] [address] Dr. Valerio Alexis Platelet mean volume (Bld) [Entitic vol] 9.9 fL Normal 9.5-13.5 [facility] Comment on above: Performed By: #### R PRQ #### [facility] [address] [address] [address] Valerio Alexis PLT 200 103/ul Normal 150-450 [facility] Comment on above: Performed By: #### R PRQ #### [facility] [address] [place] [address] Dr. Valerio Alexis RBC 3.47 106/ul Critically low 4.20-5.40 [facility] Comment on above: Performed By: #### R PRQ #### [facility] [address] [place] [address] Dr. Valerio Alexis WBC 13.5 103/ul Critically high 4.0-11.0 [facility] Comment on above: Performed By: #### R PRQ #### [facility] [address] [place] [address] Dr. Valerio Alexis CBC AUTO DIFFon 08-24-2022 BASO # 0.0 103/ul Normal 0.0-0.1 [facility] Comment on above: Performed By: #### H H #### [facility] [address] [address] [address] Valreio Alexis Basophils/100 WBC (Bld) 0.3 % Normal 0.2-2.0 [facility] Comment on above: Performed By: #### H H #### [facility] [address] [address] [address] Valerio Alexis EO # 0.1 103/ul Normal 0.0-0.7 [facility] Comment on above: Performed By: #### H H #### [facility] [address] [address] [address] Valerio Alexis Eosinophils/100 WBC (Bld) 0.5 % Critically low 0.9-7.0 [facility] Comment on above: Performed By: #### H H #### [facility] [address] [address] [address] Valerio Alexis Erythrocyte distribution width (RBC) [Ratio] 13.2 % Normal 11.0-15.0 [facility] Comment on above: Performed By: #### H H #### [facility] [address] [address] [address] Valerio Alexis Hematocrit (Bld) [Volume fraction] 32.4 % Critically low 36.0-48.0 [facility] Comment on above: Performed By: #### H H #### [facility] [address] [address] [address] Valerio Alexis Hemoglobin (Bld) [Mass/Vol] 10.9 g/dL Critically low 12.0-16.0 [facility] Comment on above: Performed By: #### H H #### [facility] [address] [address] [address] Valerio Alexis IG # 0.07 10e3/ul Critically high 0.00-0.03 [facility] Comment on above: Performed By: #### H H #### [facility] [address] [address] [address] Valerio Alexis IG % 0.6 % Critically high 0.0-0.5 [facility] Comment on above: Performed By: #### H H #### [facility] [address] [address] [address] Valerio Alexis LYMPH # 2.0 103/ul Normal 1.2-3.8 [facility] Comment on above: Performed By: #### H H #### [facility] [address] [address] [address] Valerio Alexis Lymphocytes/100 WBC (Bld) 18.4 % Critically low 20.5-60.0 [facility] Comment on above: Performed By: #### H H #### [facility] [address] [address] [address] Valerio Alexis MANUAL DIFF REQ NO Normal [facility] Comment on above: Performed By: #### H H #### [facility] [address] [place] [address] Dr. Valerio Alexis MCH (RBC) [Entitic mass] 27.1 pg Normal 26.7-34.0 [facility] Comment on above: Performed By: #### H H #### [facility] [address] [place] [address] Dr. Valerio Alexis MCHC (RBC) [Mass/Vol] 33.6 g/dL Normal 29.9-35.2 [facility] Comment on above: Performed By: #### H H #### [facility] [address] [place] [address] Dr. Valerio Alexis MCV (RBC) [Entitic vol] 80.6 fL Critically low 81.0-99.0 [facility] Comment on above: Performed By: #### H H #### [facility] [address] [place] [address] Dr. Valerio Alexis MONO # 0.9 103/ul Critically high 0.3-0.8 [facility] Comment on above: Performed By: #### H H #### [facility] [address] [place] [address] Dr. Valerio Alexis Monocytes/100 WBC (Bld) 8.5 % Normal 1.7-12.0 [facility] Comment on above: Performed By: #### H H #### [facility] [address] [address] [address] Valerio Alexis NEUT # 7.7 103/ul Critically high 1.4-6.5 [facility] Comment on above: Performed By: #### H H #### [facility] [address] [address] [address] Valerio Alexis Neutrophils/100 WBC (Bld) 71.7 % Normal 43.0-75.0 [facility] Comment on above: Performed By: #### H H #### [facility] [address] [address] [address] Valerio Alexis Platelet mean volume (Bld) [Entitic vol] 9.8 fL Normal 9.5-13.5 [facility] Comment on above: Performed By: #### H H #### [facility] [address] [place] [address] Dr. Valerio Alexis PLT 273 103/ul Normal 150-450 [facility] Comment on above: Performed By: #### H H #### [facility] [address] [address] [address] Valerio Alexis RBC 4.02 106/ul Critically low 4.20-5.40 [facility] Comment on above: Performed By: #### H H #### [facility] [address] [place] [address] Dr. Valerio Alexis WBC 10.8 103/ul Normal 4.0-11.0 [facility] Comment on above: Performed By: #### H H #### [facility] [address] [place] [address] Dr. Valerio Alexis Covid-19 PCR ([facility])on 08-03 SARS-CoV-2 (COVID-19) RNA CHULA+probe Ql (Unsp spec) Not detected Normal NOT DETECTED [facility] Comment on above: Result Comment: When diagnostic [...] for this test is supported by the [employer]'s declaration that [...] used). Performed By: #### H H #### [facility] [address] [place] [address] Dr. Valerio Alexis DRUG SCREEN RAPID (URINE)on 08-24-2022 AMP Negative Normal NEGATIVE [facility] Comment on above: Performed By: #### H H #### [facility] [address] [place] [address] Dr. Valerio Alexis BAR Negative Normal NEGATIVE [facility] Comment on above: Performed By: #### H H #### [facility] [address] [place] [address] Dr. Valerio Alexis BUP Negative Normal NEGATIVE [facility] Comment on above: Performed By: #### H H #### [facility] [facility] [address] [place] [address] Dr. Valerio Alexis BZO Negative Normal NEGATIVE [facility] Comment on above: Performed By: #### H H #### [facility] [address] [place] [address] Dr. Valerio Alexis WENDY Negative Normal NEGATIVE [facility] Comment on above: Performed By: #### H H #### [facility] [address] [place] [address] Dr. Valerio Alexis CUT-OFFS SEE BELOW Normal [facility] Comment on above: Result Comment: AMP [...] ng/mL Performed By: #### H H #### [facility] [address] [place] [address] Dr. Valerio Alexis DRUG CUT HEADER DRUG CLASS TEST SYSTEM CUT-OFF CONCENTRATIONS ARE FOLLOWS: Normal [facility] Comment on above: Performed By: #### H H #### [facility] [address] [place] [address] Dr. Valerio Alexis mAMP Negative Normal NEGATIVE [facility] Comment on above: Performed By: #### H H #### [facility] [address] [place] [address] Dr. Valerio Alexis MTD Negative Normal NEGATIVE [facility] Comment on above: Performed By: #### H H #### [facility] [address] [place] [address] Dr. Valerio Alexis OPI Negative Normal NEGATIVE [facility] Comment on above: Performed By: #### H H #### [facility] [address] [place] [address] Dr. Valerio Alexis OXY Negative Normal NEGATIVE [facility] Comment on above: Performed By: #### H H #### [facility] [address] [place] [address] Dr. Valerio Alexis PCP Negative Normal NEGATIVE [facility] Comment on above: Performed By: #### H H #### [facility] [address] [place] [address] Dr. Valerio Alexis PPX Negative Normal NEGATIVE [facility] Comment on above: Performed By: #### H H #### [facility] [address] [place] [address] Dr. Valerio Alexis TCA Negative Normal NEGATIVE [facility] Comment on above: Performed By: #### H H #### [facility] [address] [place] [address] Dr. Valerio Alexis THC Negative Normal NEGATIVE [facility] Comment on above: Performed By: #### H H #### [facility] [address] [place] [address] Dr. Valerio Alexis TYPE AND SCREENon 08-24-2022 TYPE AND SCREEN Negative Normal [facility] Comment on above: Performed By: #### T NS #### [facility] [address] [place] [address] Dr. Valerio Alexis US PREG BIOPHY W NON STRESSo n 08-22-2022 US PREG BIOPHY W NON STRESS EXAMINATION: US PREG BIOPHY W NON STRESS HISTORY: [id number] baby COMPARISON: 08/16/2022 TECHNIQUE: Ultrasound biophysical profile was performed in the radiology department. FINDINGS: BREATHING MOVEMENTS: 2.0 GROSS BODY MOVEMENTS: 2.0 TONE: 2.0 QUALITATIVE AMNIOTIC FLUID VOLUME: 2.0 PRESENTATION: Cephalic HEART RATE: 137.8 bpm H.B./min AMNIOTIC FLUID VOLUME: 10.3 cm cm GESTATIONAL AGE: 38 weeks 5 days CONCLUSION: Total biophysical profile score: 8.0 Electronically authenticated by: LEE CLAY Date: 2022-08-22 13:46 Normal [facility] US PREG UMBILICAL ARTERYon 1 10-22-2021 US PREG UMBILICAL ARTERY EXAMINATION: US PREG UMBILICAL ARTERY HISTORY: [id number] baby COMPARISON: No relevant comparison available. TECHNIQUE: [...] by: LEE CLAY Date: 2022-08-22 13:48 Normal [facility] US PREG BIOPHY W NON STRESSo n 08-17-2022 US PREG BIOPHY W NON STRESS EXAMINATION: US PREG BIOPHY W NON STRESS HISTORY: [id number] baby COMPARISON: Ultrasound biophysical 08/15/2022 TECHNIQUE: Ultrasound biophysical profile was performed. FINDINGS: IMPRESSION: BREATHING MOVEMENTS: 2.0 GROSS BODY MOVEMENTS: 2.0 TONE: 2.0 QUALITATIVE AMNIOTIC FLUID VOLUME: 2.0 PRESENTATION: Cephalic HEART RATE: 142.9 bpm bpm. AMNIOTIC FLUID VOLUME: 12.7 cm GESTATIONAL AGE: 37 weeks 6 days CONCLUSION: Total biophysical profile score 8.0. Electronically authenticated by: TEAGAN ENRIQUE Date: 2022-08-17 06:47 Normal [facility] US PREG BIOPHY W NON STRESSo [...] by: LEE CLAY Date: 2022-08-15 16:37 Normal [facility] US PREG UMBILICAL ARTERYon 1 10-15-2021 US PREG UMBILICAL ARTERY EXAM: US PREG UMBILICAL ARTERY HISTORY: [id number] baby EXAMINATION: US PREG UMBILICAL ARTERY HISTORY: [id number] baby COMPARISON: No relevant comparison available. TECHNIQUE: [...] by: LEE CLAY Date: 2022-08-15 16:55 Normal [facility] PREG BIOPHY W NON STRESSo n 08-08-2022 [...] by: LEE CLAY Date: 2022-08-08 16:59 Normal [facility] US PREG UMBILICAL ARTERYon 1 10-08-2021 US PREG UMBILICAL ARTERY EXAM: US PREG UMBILICAL ARTERY HISTORY: [id number] baby COMPARISON: 08/01/2022 TECHNIQUE: Grayscale, color and [...] LEE CLAY Date: 2022-08-08 17:03 Normal [facility] BUNon 08-05-2022 Urea nitrogen [Mass/Vol] 11.0 mg/dL Normal 7.0-18.0 [facility] Comment on above: Performed By: #### N BOX #### [facility] [address] [place] [address] Dr. Valerio Alexis CBC AUTO DIFFon 08-05-2022 BASO # 0.0 103/ul Normal 0.0-0.1 [facility] Comment on above: Performed By: #### N BOX #### [facility] [address] [place] [address] Dr. Valerio Alexis Basophils/100 WBC (Bld) 0.3 % Normal 0.2-2.0 [facility] Comment on above: Performed By: #### N BOX #### [facility] [address] [place] [address] Dr. Valerio Alexis EO # 0.0 103/ul Normal 0.0-0.7 [facility] Comment on above: Performed By: #### N BOX #### [facility] [address] [place] [address] Dr. Valerio Alexis Eosinophils/100 WBC (Bld) 0.3 % Critically low 0.9-7.0 [facility] Comment on above: Performed By: #### N BOX #### [facility] [address] [place] [address] Dr. Valerio Alexis Erythrocyte distribution width (RBC) [Ratio] 12.9 % Normal 11.0-15.0 [facility] Comment on above: Performed By: #### N BOX #### [facility] [address] [place] [address] Dr. Valerio Alexis Hematocrit (Bld) [Volume fraction] 33.3 % Critically low 36.0-48.0 [facility] Comment on above: Performed By: #### N BOX #### [facility] [address] [place] [address] Dr. Valerio Alexis Hemoglobin (Bld) [Mass/Vol] 11.0 g/dL Critically low 12.0-16.0 [facility] Comment on above: Performed By: #### N BOX #### [facility] [address] [place] [address] Dr. Valerio Alexis IG # 0.14 10e3/ul Critically high 0.00-0.03 [facility] Comment on above: Performed By: #### N BOX #### [facility] [address] [place] [address] Dr. Valerio Alexis IG % 0.9 % Critically high 0.0-0.5 [facility] Comment on above: Performed By: #### N BOX #### [facility] [address] [place] [address] Dr. Valerio Alexis LYMPH # 1.4 103/ul Normal 1.2-3.8 [facility] Comment on above: Performed By: #### N BOX #### [facility] [address] [place] [address] Dr. Valerio Alexis Lymphocytes/100 WBC (Bld) 8.8 % Critically low 20.5-60.0 [facility] Comment on above: Performed By: #### N BOX #### [facility] [address] [place] [address] Dr. Valerio Alexis MANUAL DIFF REQ NO Normal [facility] Comment on above: Performed By: #### N BOX #### [facility] [address] [place] [address] Dr. Valerio Alexis MCH (RBC) [Entitic mass] 27.8 pg Normal 26.7-34.0 [facility] Comment on above: Performed By: #### N BOX #### [facility] [address] [place] [address] Dr. Valerio Alexis MCHC (RBC) [Mass/Vol] 33.0 g/dL Normal 29.9-35.2 [facility] Comment on above: Performed By: #### N BOX #### [facility] [address] [place] [address] Dr. Valerio Alexis MCV (RBC) [Entitic vol] 84.3 fL Normal 81.0-99.0 [facility] Comment on above: Performed By: #### N BOX #### [facility] [address] [place] [address] Dr. Valerio Alexis MONO # 1.1 103/ul Critically high 0.3-0.8 [facility] Comment on above: Performed By: #### N BOX #### [facility] [address] [place] [address] Dr. Valerio Alexis Monocytes/100 WBC (Bld) 7.0 % Normal 1.7-12.0 [facility] Comment on above: Performed By: #### N BOX #### [facility] [address] [place] [address] Dr. Valerio Alexis NEUT # 13.1 103/ul Critically high 1.4-6.5 [facility] Comment on above: Performed By: #### N BOX #### [facility] [address] [place] [address] Dr. Valerio Alexis Neutrophils/100 WBC (Bld) 82.7 % Critically high 43.0-75.0 [facility] Comment on above: Performed By: #### N BOX #### [facility] [address] [place] [address] Dr. Valerio Alexis Platelet mean volume (Bld) [Entitic vol] 10.8 fL Normal 9.5-13.5 [facility] Comment on above: Performed By: #### N BOX #### [facility] [address] [place] [address] Dr. Valerio Alexis PLT 202 103/ul Normal 150-450 [facility] Comment on above: Performed By: #### N BOX #### [facility] [address] [place] [address] Dr. Valerio Alexis RBC 3.95 106/ul Critically low 4.20-5.40 [facility] Comment on above: Performed By: #### N BOX #### [facility] [address] [place] [address] Dr. Valerio Alexis WBC 15.9 103/ul Critically high 4.0-11.0 [facility] Comment on above: Performed By: #### N BOX #### [facility] [address] [place] [address] Dr. Valerio Alexis CREATININEon 08-05-2022 Creatinine [Mass/Vol] 0.64 mg/dL Normal 0.55-1.02 [facility] Comment on above: Performed By: #### N BOX #### [facility] [address] [place] [address] Dr. Valerio Alexis EGFR-AF MOLDOVAN >60 Normal >=60 [facility] Comment on above: Performed By: #### N BOX #### [facility] [address] [place] [address] Dr. Valerio Alexis EGFR-NON AF MOLDOVAN >60 Normal >=60 [facility] Comment on above: Performed By: #### N BOX #### [facility] [address] [place] [address] Dr. Vaelrio Alexis CULTURE URINEon 08-05-2022 CULTURE URINE Culture Observations: LIGHT GROWTH OF MIXED GENITAL RICK. NO POTENTIAL PATHOGENS SEEN. Normal [facility] Comment on above: Performed By: #### N BOX #### [facility] [address] [place] [address] Dr. Valerio Alexis UA (CLEAN/CATCH) SEEDLING PULLER/MICRO I F IND.on 08-05-2022 Bilirubin Ql (U) Negative Normal NEGATIVE [facility] Comment on above: Performed By: #### N BOX #### [facility] [address] [place] [address] Dr. Valerio Alexis Clarity (U) CLEAR Normal CLEAR [facility] Comment on above: Performed By: #### N BOX #### [facility] [address] [place] [address] Dr. Valerio Alexis Color (U) LT. YELLOW Normal YELLOW [facility] Comment on above: Performed By: #### N BOX #### [facility] [address] [place] [address] Dr. Valerio Alexis Glucose Ql (U) Negative Normal NEGATIVE [facility] Comment on above: Performed By: #### N BOX #### [facility] [address] [place] [address] Dr. Valerio Alexis Hemoglobin Ql (U) LARGE Abnormal NEGATIVE [facility] Comment on above: Performed By: #### N BOX #### [facility] [address] [place] [address] Dr. Valerio Alexis Ketones Ql (U) Negative Normal NEGATIVE [facility] Comment on above: Performed By: #### N BOX #### [facility] [address] [place] [address] Dr. Valerio Alexis LEUKOCYTES SMALL Abnormal NEGATIVE [facility] Comment on above: Performed By: #### N BOX #### [facility] [address] [place] [address] Dr. Valerio Alexis Nitrite Ql (U) Positive Abnormal NEGATIVE [facility] Comment on above: Performed By: #### N BOX #### [facility] [address] [place] [address] Dr. Valerio Alexis pH (U) 6.5 [pH] Normal 5-9 [facility] Comment on above: Performed By: #### N BOX #### [facility] [address] [place] [address] Dr. Valerio Alexis SPEC GRAVITY 1.020 Normal 1.005-<=1.025 [facility] Comment on above: Performed By: #### N BOX #### [facility] [address] [place] [address] Dr. Valerio Alexis UA PROTEIN 30 mg/dl Abnormal NEGATIVE/ TRACE [facility] Comment on above: Performed By: #### N BOX #### [facility] [address] [place] [address] Dr. Valerio Alexis UR MICRO IND INDICATED Normal [facility] Comment on above: Performed By: #### N BOX #### [facility] [address] [place] [address] Dr. Valerio Alexis Urobilinogen Qn (U) 0.2 {Nicolas'U}/dL Normal 0.2 - 1. 0 [facility] Comment on above: Performed By: #### N BOX #### [facility] [address] [place] [address] Dr. Valerio Alexis URINE MICROSCOPIC ONLYon BACTERIA TRACE Abnormal NONE SEEN [facility] Comment on above: Performed By: #### N BOX #### [facility] [address] [place] [address] Dr. Valerio Alexis Bacteria identified Cx Nom (U) INDICATED Normal [facility] Comment on above: Performed By: #### N BOX #### [facility] [address] [place] [address] Dr. Valerio Alexis CAST NONE SEEN Normal NONE SEEN [facility] Comment on above: Performed By: #### N BOX #### [facility] [address] [place] [address] Dr. Valerio Alexis Crystals LM Nom (Urine sed) NONE SEEN Normal NONE SEEN [facility] Comment on above: Performed By: #### N BOX #### [facility] [address] [place] [address] Dr. Valerio Alexis Epithelial cells LM Ql (Urine sed) RARE Normal NONE SEEN /RARE [facility] Comment on above: Performed By: #### N BOX #### [facility] [address] [place] [address] Dr. Valerio Alexis MUCOUS NONE SEEN Normal NONE SEEN [facility] Comment on above: Performed By: #### N BOX #### [facility] [address] [place] [address] Dr. Valerio Alexis RBC NONE SEEN Abnormal 0-2 [facility] Comment on above: Performed By: #### N BOX #### [facility] [address] [place] [address] Dr. Valerio Alexis WBC 5-10 Abnormal NONE SEEN [facility] Comment on above: Performed By: #### N BOX #### [facility] [address] [place] [address] Dr. Valerio Alexis GROUP B STREP CULTUREon S. agalactiae Ag Ql (Unsp spec) Culture Observations: NEGATIVE FOR GROUP B STREPTOCOCCUS. Normal [facility] Comment on above: Performed By: #### G BSCX #### [facility] [address] [place] [address] Dr. Valerio Alexis US PREG BIOPHY W [...] TEAGAN ENRIQUE Date: 2022-08-02 05:48 Normal [facility] US PREG UMBILICAL ARTERYon 1 10-02-2021 US PREG UMBILICAL ARTERY EXAMINATION: US PREG UMBILICAL ARTERY HISTORY: [id number] baby COMPARISON: Ultrasound umbilical artery 07/28/2022 TECHNIQUE: [...] TEAGAN ENRIQUE Date: 2022-08-02 05:54 Normal [facility] PREG BIOPHYSICAL NO NSTon 07-28-2022 US PREG [...] by: TEAGAN ENRIQUE Date: 2022-07-28 16:40 Normal [facility] US PREG GROWTHon 07-28-2022 US PREG [...] 3. Dr. Harding was notified by the mold yard worker at time of imaging. Electronically authenticated by: TEAGAN ENRIQUE Date: 2022-07-28 16:48 Normal [facility] US PREG UMBILICAL ARTERYon 1 US [...] by: TEAGAN ENRIQUE Date: 2022-07-28 13:25 Normal [facility] US PREG BIOPHY W NON STRESSo [...] by: TEAGAN ENRIQUE Date: 2022-07-26 16:06 Normal [facility] US PREG BIOPHY W NON STRESS [...] by: LEE CLAY Date: 2022-07-26 07:14 Normal [facility] US PREG BIOPHY W NON STRESSo [...] by: TEAGAN ENRIQUE Date: 2022-07-19 20:21 Normal [facility] US PREG GROWTHon 07-13-2022 US PREG [...] Dr. Harding notified of low weight by mold yard worker at time of imaging. Electronically authenticated by: TEAGAN ENRIQUE Date: 2022-07-12 22:01 Normal [facility] GLUCOSE - 1HRon 05-31-2022 Glucose [Mass/Vol] 110 mg/dL Critically high 74-106 [facility] Comment on above: Performed By: #### R PRQ #### [facility] [address] [place] [address] Dr. Valerio Alexis HEMOGRAM AND PLATELon 2021 Hematocrit (Bld) [Volume fraction] 31.6 % Critically low 36.0-48.0 [facility] Comment on above: Performed By: #### H H #### [facility] [address] [place] [address] Dr. Valerio Alexis Hemoglobin (Bld) [Mass/Vol] 10.7 g/dL Critically low 12.0-16.0 [facility] Comment on above: Performed By: #### H H #### [facility] [address] [place] [address] Dr. Valerio Alexis MCH (RBC) [Entitic mass] 29.7 pg Normal 26.7-34.0 [facility] Comment on above: Performed By: #### H H #### [facility] [address] [place] [address] Dr. Valerio Alexis MCHC (RBC) [Mass/Vol] 33.9 g/dL Normal 29.9-35.2 [facility] Comment on above: Performed By: #### H H #### [facility] [address] [place] [address] Dr. Valerio Alexis MCV (RBC) [Entitic vol] 87.8 fL Normal 81.0-99.0 [facility] Comment on above: Performed By: #### H H #### [facility] [address] [place] [address] Dr. Valerio Alexis PLT 179 103/ul Normal 150-450 [facility] Comment on above: Performed By: #### H H #### [facility] [address] [place] [address] Dr. Valerio Alexis RBC 3.60 106/ul Critically low 4.20-5.40 [facility] Comment on above: Performed By: #### H H #### [facility] [address] [place] [address] Dr. Valerio Alexis WBC 8.9 103/ul Normal 4.0-11.0 [facility] Comment on above: Performed By: #### H H #### [facility] [address] [place] [address] Dr. Valerio Alexis CHLAMYDIA/GONOCOCCUS CHULA (SW AB/URINE/PAPon 05-21-2022 Chlamydia trachomatis, CHULA Negative Normal Negative [facility] Comment on above: Performed By: #### R PRQ #### [facility] [address] [place] [address] Dr. Valerio Alexis Neisseria gonorrhoeae, CHULA Negative Normal Negative [facility] Comment on above: Performed By: #### R PRQ #### [facility] [address] [place] [address] Dr. Valerio Alexis VAGINITIS/VAGINOSIS DNA PROB Dane 05-21-2022 Ashley species Negative Normal Negative [facility] Comment on above: Performed By: #### H IV12 #### [facility] [address] [place] [address] Dr. Valerio Alexis Gardnerella vaginalis Positive Abnormal Negative [facility] Comment on above: Performed By: #### H IV12 #### [facility] [address] [place] [address] Dr. Valerio Alexis Trichomonas vaginalis Negative Normal Negative [facility] Comment on above: Performed By: #### H IV12 #### [facility] [address] [place] [address] Dr. Valerio Alexis HEPATITIS PANEL, ACUTEon HBsAg Screen Negative Normal Negative [facility] Comment on above: Performed By: #### R PRQ #### [facility] [address] [place] [address] Dr. Valerio Alexis HCV AB <0.1 Normal 0.0-0.9 [facility] Comment on above: Performed By: #### R PRQ #### [facility] Laboratory [address] [place] [address] Dr. Valerio Alexis Hep A Ab, IgM Negative Normal Negative [facility] Comment on above: Performed By: #### R PRQ #### [facility] Laboratory [address] [address] [address] Valerio Alexis Hep B Core Ab, IgM Negative Normal Negative [facility] Comment on above: Performed By: #### R PRQ #### [facility] Laboratory [address] [place] [address] Dr. Valerio Alexis Interpretation: Comment Normal [facility] Comment on above: Result Comment: Nega tive Not infected with HCV, unless recent infection is suspected or other evidence exists to indicate HCV infection. Performed By: #### R PRQ #### [facility] Laboratory [address] [place] [address] Dr. Valerio Alexis HIV 1 AND 2 WITH REFLEXon HIV Screen 4th Generation wRfx Non-Reactive Normal Non Reactive [facility] Comment on above: Result Comment: HIV Negative HIV-1/HIV-2 antibodies and HIV-1 p24 antigen were NOT detected. There is no laboratory evidence of HIV infection. Performed By: #### N BOX #### [facility] Laboratory [address] [place] [address] Dr. Valerio Alexis RPR QUANTon 05-20-2022 Rapid Plasma Reagin, Quant Non-Reactive Normal NonRea<1:1 [facility] Comment on above: Result Comment: Plea se Note: This test does not meet current guidelines for screening and diagnosis of syphilis. This test is intended for following treatment response in patients being treated for syphilis infection. To screen for syphilis infection, a reflex cascade that includes both RPR and a treponema-specific assay should be utilized, such as Treponema pallidum (Syphilis) Screening [place] (911073) or Rapid Plasma Reagin (RPR) Test With Reflex to Quantitative RPR and Confirmatory Treponema pallidum Antibodies (601769). Performed By: #### R PRQ #### [facility] Laboratory [address] [place] [address] Dr. Valerio Alexis CULTURE URINEon 05-19-2022 CULTURE URINE Culture Observations: HEAVY GROWTH OF MIXED GENITAL RICK. NO POTENTIAL PATHOGENS SEEN. Normal [facility] Comment on above: Performed By: #### U RCX #### [facility] Laboratory [address] [place] [address] Dr. Valerio Alexis CULTURE URINEon 05-18-2022 CULTURE URINE Culture Observations: LIGHT GROWTH OF MIXED GENITAL RICK. NO POTENTIAL PATHOGENS SEEN. Normal [facility] Comment on above: Performed By: #### U RCX #### [facility] Laboratory [address] [address] [address] Valerio Alexis AFP MATERNAL FOR SPINA BIFID Aon 04-30-2022 AFP MoM 1.13 Normal [facility] Comment on above: Performed By: #### R PRQ #### [facility] Laboratory [address] [address] [address] Valerio Alexis AFP Value 94.7 ng/mL Normal [facility] Comment on above: Performed By: #### R PRQ #### [facility] Laboratory [address] [address] [address] Valerio Alexis AFP, Serum for Spina Bifida Report Normal [facility] Comment on above: Performed By: #### R PRQ #### [facility] Laboratory [address] [address] [address] Valerio Alexis Comment Comment Normal [facility] Comment on above: Result Comment: Willa Domínguez, Ph.D., [facility] Director . References: Available Upon Request. . Multiples Of Median Cutoffs For AFP Elevations Cuenca 2.5 Black 2.8 IDD 2.0 Twins 4.5 Abbreviation Definitions IDD - Insulin Dep Diabetes OSBR - Open Spina Bifida Risk . For further inquiries contact [facility] at [phone]. . This test was developed and its performance characteristics determined by [facility]. It has not been cleared or approved by the Food and Drug Administration. Performed By: #### R PRQ #### [facility] Laboratory [address] [address] [address] Valerio Georges Age Collection Date 20.9 weeks [facility] Comment on above: Performed By: #### R PRQ #### [facility] Laboratory [address] [address] [address] Valerio Alexis Gestat, Age Based on JOSE [facility] Comment on above: Result Comment: 11/3 Recalculations are not recommended when gestational dating by LMP and ultrasound are within 10 days. Performed By: #### R PRQ #### [facility] Laboratory [address] [place] [address] Dr. Valerio Alexis Insulin Dep Diabetes No Normal [facility] Comment on above: Performed By: #### R PRQ #### [facility] Laboratory [address] [place] [address] Dr. Valerio Alexis Interpretation Comment Normal [facility] Comment on above: Result Comment: Inte rpretation: [...] Customer Services to discuss available options. The [employer] recommends amniocentesis be offered to women age 35 and older. Performed By: #### R PRQ #### [facility] Laboratory [address] [place] [address] Dr. Valerio Alexis [age] Normal [facility] Comment on above: Performed By: #### R PRQ #### [facility] Laboratory [address] [place] [address] Dr. Valerio Alexis Multiple Gestation No Normal [facility] Comment on above: Performed By: #### R PRQ #### [facility] Laboratory [address] [place] [address] Dr. Valerio Alexis OSBR Risk 1 IN 8106 Normal [facility] Comment on above: Performed By: #### R PRQ #### [facility] Laboratory [address] [place] [address] Dr. Valerio Alexis PDF . Normal [facility] Comment on above: Performed By: #### R PRQ #### [facility] Laboratory [address] [place] [address] Dr. Valerio Alexis Race Normal [facility] Comment on above: Performed By: #### R PRQ #### [facility] Laboratory [address] [place], [place] [address] Dr. Valerio Alexis Test Results: Negative Normal [facility] Comment on above: Performed By: #### R PRQ #### [facility] Laboratory [address] [place], [place] [address] Dr. Valerio Alexis US PREG ANATOMY SINGLEon [...] TEAGAN ENRIQUE Date: 2022-04-20 20:07 Normal [facility] CHLAMYDIA/GONOCOCCUS CHULA (SW AB/URINE/PAPon 03-26-2022 Chlamydia trachomatis, CHULA Negative Normal Negative [facility] Comment on above: Performed By: #### R PRQ #### [facility] Laboratory [address] [address] [address] Valerio Alexis Neisseria gonorrhoeae, CHULA Negative Normal Negative [facility] Comment on above: Performed By: #### R PRQ #### [facility] Laboratory [address] [address] [address] Valerio Alexis VAGINITIS/VAGINOSIS DNA PROB Dane 03-25-2022 [place] species Positive Abnormal Negative [facility] Comment on above: Performed By: #### R PRQ #### [facility] Laboratory [address] [place] [address] Dr. Valerio Alexis Gardnerella vaginalis Positive Abnormal Negative [facility] Comment on above: Performed By: #### R PRQ #### [facility] Laboratory [address] [address] [address] Valerio Alexis Trichomonas vaginalis Negative Normal Negative [facility] Comment on above: Performed By: #### R PRQ #### [facility] Laboratory [address] [place] [address] Dr. Valerio Alexis Covid-19 PCR (CVDTBH)on 01-31 SARS-CoV-2 (COVID-19) RNA CHULA+probe Ql (Unsp spec) Detected Critically abnormal NOT DETECTED [facility] Comment on above: Result Comment: This test is not yet approved or cleared by the [place] FDA. When there are no FDA-approved or cleared tests available, and other criteria are met, FDA can make tests available under an emergency access mechanism called an Emergency Use Authorization (EUA). The EUA for this test is supported by the M[employer] Operator of Health and Human Service's declaration that [...] used). Performed By: #### C VDTBH #### [facility] Laboratory [address] [place] [address] Dr. Valerio Alexis US PREG TVon 05-18-2022 US PREG TV EXAMINATION: US PREG TV [...] by: TEAGAN ENRIQUE Date: 2022-02-16 13:14 Normal [facility] CHEMISTRYOrdered By: Roberto Garsia on 02-15-2022 HCG.beta subunit Qn [id number] m[IU]/mL High 1 - 3 mIU/m L [facility] Chem S HEP B SURFACE ANTIGEN SCREEN on 02-12-2022 HBsAg Screen Negative Normal Negative [facility] Comment on above: Performed By: #### H H #### [facility] Laboratory [address] [address] [address] Valerio Alexis HEPATITIS C VIRUS AB W/ REFL EX QUANTon 02-12-2022 HCV AB 0.1 s/co ratio Normal 0.0-0.9 [facility] Comment on above: Performed By: #### H H #### [facility] Laboratory [address] [address] [address] Valerio Alexis Interpretation: Comment Normal [facility] Comment on above: Result Comment: Nega tive Not infected with HCV, unless recent infection is suspected or other evidence exists to indicate HCV infection. Performed By: #### H H #### [facility] Laboratory [address] [address] [address] Valerio Alexis HIV 1 AND 2 WITH REFLEXon HIV Screen 4th Generation wRfx Non-Reactive Normal Non Reactive [facility] Comment on above: Result Comment: HIV Negative HIV-1/HIV-2 antibodies and HIV-1 p24 antigen were NOT detected. There is no laboratory evidence of HIV infection. Performed By: #### H IV12 #### [facility] Laboratory [address] [place] [address] Dr. Valerio Alexis RPR QUANTon 02-12-2022 Rapid Plasma Reagin, Quant Non-Reactive Normal NonRea<1:1 [facility] Comment on above: Result Comment: Plea se Note: This test does not meet current guidelines for screening and diagnosis of syphilis. This test is intended for following treatment response in patients being treated for syphilis infection. To screen for syphilis infection, a reflex cascade that includes both RPR and a treponema-specific assay should be utilized, such as Treponema pallidum (Syphilis) Screening [place] (816281) or Rapid Plasma Reagin (RPR) Test With Reflex to Quantitative RPR and Confirmatory Treponema pallidum Antibodies (806000). Performed By: #### U RCX #### [facility] Laboratory [address] [place] [address] Dr. Valerio Alexis RUBELLA AB IGGon 02-12-2022 Rubella Antibodies, IgG 1.88 index Normal Immune >0.99 [facility] Comment on above: Result Comment: Non- immune <0.90 Equivocal 0.90 - 0.99 Immune >0.99 Performed By: #### H H #### [facility] Laboratory [address] [place] [address] Dr. Valerio Alexis CBC AUTO DIFFon 02-11-2022 BASO # 0.0 103/ul Normal 0.0-0.1 [facility] Comment on above: Performed By: #### H H #### [facility] Laboratory [address] [place] [address] Dr. Valerio Alexis Basophils/100 WBC (Bld) 0.3 % Normal 0.2-2.0 [facility] Comment on above: Performed By: #### H H #### [facility] Laboratory [address] [place] [address] Dr. Valerio Alexis EO # 0.1 103/ul Normal 0.0-0.7 [facility] Comment on above: Performed By: #### H H #### [facility] Laboratory [address] [place] [address] Dr. Valerio Alexis Eosinophils/100 WBC (Bld) 0.9 % Normal 0.9-7.0 [facility] Comment on above: Performed By: #### H H #### [facility] Laboratory [address] [place] [address] Dr. Valerio Alexis Erythrocyte distribution width (RBC) [Ratio] 12.8 % Normal 11.0-15.0 [facility] Comment on above: Performed By: #### H H #### [facility] Laboratory [address] [place] [address] Dr. Valerio Alexis Hematocrit (Bld) [Volume fraction] 37.6 % Normal 36.0-48.0 [facility] Comment on above: Performed By: #### H H #### [facility] Laboratory [address] [place] [address] Dr. Valerio Alexis Hemoglobin (Bld) [Mass/Vol] 12.5 g/dL Normal 12.0-16.0 [facility] Comment on above: Performed By: #### H H #### [facility] Laboratory [address] [place] [address] Dr. Valerio Alexis IG # 0.04 10e3/ul Critically high 0.00-0.03 [facility] Comment on above: Performed By: #### H H #### [facility] Laboratory [address] [place] [address] Dr. Valerio Alexis IG % 0.6 % Critically high 0.0-0.5 [facility] Comment on above: Performed By: #### H H #### [facility] Laboratory [address] [place] [address] Dr. Valerio Alexis LYMPH # 1.5 103/ul Normal 1.2-3.8 [facility] Comment on above: Performed By: #### H H #### [facility] Laboratory [address] [place] [address] Dr. Valerio Alexis Lymphocytes/100 WBC (Bld) 21.9 % Normal 20.5-60.0 [facility] Comment on above: Performed By: #### H H #### [facility] Laboratory [address] [place] [address] Dr. Valerio Alexis MANUAL DIFF REQ NO Normal [facility] Comment on above: Performed By: #### H H #### [facility] Laboratory [address] [place] [address] Dr. Valerio Alexis MCH (RBC) [Entitic mass] 29.0 pg Normal 26.7-34.0 [facility] Comment on above: Performed By: #### H H #### [facility] Laboratory [address] [place] [address] Dr. Valerio Alexis MCHC (RBC) [Mass/Vol] 33.2 g/dL Normal 29.9-35.2 [facility] Comment on above: Performed By: #### H H #### [facility] Laboratory [address] [place] [address] Dr. Valerio Alexis MCV (RBC) [Entitic vol] 87.2 fL Normal 81.0-99.0 [facility] Comment on above: Performed By: #### H H #### [facility] Laboratory [address] [place] [address] Dr. Valerio Alexis MONO # 0.5 103/ul Normal 0.3-0.8 [facility] Comment on above: Performed By: #### H H #### [facility] Laboratory [address] [place] [address] Dr. Valerio Alexis Monocytes/100 WBC (Bld) 6.7 % Normal 1.7-12.0 [facility] Comment on above: Performed By: #### H H #### [facility] Laboratory [address] [place] [address] Dr. Valerio Alexis NEUT # 4.9 103/ul Normal 1.4-6.5 [facility] Comment on above: Performed By: #### H H #### [facility] Laboratory [address] [place] [address] Dr. Valerio Alexis Neutrophils/100 WBC (Bld) 69.6 % Normal 43.0-75.0 [facility] Comment on above: Performed By: #### H H #### [facility] Laboratory [address] [place] [address] Dr. Valerio Alexis Platelet mean volume (Bld) [Entitic vol] 10.8 fL Normal 9.5-13.5 [facility] Comment on above: Performed By: #### H H #### [facility] Laboratory [address] [address] [address] Valerio Alexis PLT 183 103/ul Normal 150-450 [facility] Comment on above: Performed By: #### H H #### [facility] Laboratory [address] [address] [address] Valerio Alexis RBC 4.31 106/ul Normal 4.20-5.40 [facility] Comment on above: Performed By: #### H H #### [facility] [address] [address] [address] Valerio Alexis WBC 7.0 103/ul Normal 4.0-11.0 [facility] Comment on above: Performed By: #### H H #### [facility] Laboratory [address] [place] [address] Dr. Valerio Alexis CULTURE URINEon 02-11-2022 CULTURE URINE Culture Observations: NO GROWTH. Normal [facility] Comment on above: Performed By: #### U RCX #### [facility] [address] [address] [address] Valerio Alexis GLYCOHEMOGLOBIN A1Con 2021 ADA RECOMMENDATION SEE BELOW Normal [facility] Comment on above: Result Comment: ADA RECOMMENDED LIMIT 4.0 - 6.0 ADA THERAPEUTIC TARGET < 7.0 ACTION SUGGESTED > 7.0 Performed By: #### H H #### [facility] Laboratory [address] [place] [address] Dr. Valerio Alexis Glucose [Mass/Vol] 88 mg/dL Normal [facility] Comment on above: Performed By: #### H H #### [facility] Laboratory [address] [place] [address] Dr. Valerio Alexis HbA1c (Bld) [Mass fraction] 4.7 % Normal 4.5-6.2 [facility] Comment on above: Performed By: #### H H #### [facility] Laboratory [address] [place] [address] Dr. Valerio Alexis ASTER BOX TEST PT SEND OUTo n 02-11-2022 SENT TO REF LAB 02/11/2022 Normal [facility] Comment on above: Performed By: #### N BOX #### [facility] [address] [place], [place] [address] Dr. Valerio Alexis TYPE AND SCREENon 02-11-2022 TYPE AND SCREEN Negative Normal [facility] Comment on above: Performed By: #### N BOX #### [facility] [address] [address] Valerio Alexis US PREG TVon 01-26-2022 [...] by: TEAGAN ENRIQUE Date: 2022-01-26 09:46 Normal [facility] PROGRESSon 11-20-2019 PROGRESS HNO ID: [id number] Author: Jose Luis Quispe Service: ? Author Type: SCALP TREATMENT OPERATOR Type: Progress Notes Filed: 11/20/2019 4:36 PM [...] or if symptoms increase. Jose Luis Quispe, TYESHA I have confirmed and edited as necessary [...] with all of its relevant components. Normal [facility] TSHon 06-11-2018 Thyrotropin Qn 3.104 uIU/mL Normal 0.350-5.500 [facility] Comment on above: Performed By: #### T SH ####[address] [phone] Comp Metabolic Panelon 06-09 Albumin mass conc 4.6 g/dL High 3.2-4.5 [facility] Comment on above: Performed By: #### C MP ####[address] [phone] ALP enzyme act/vol 75 U/L Normal 47-119 [facility] Comment on above: Performed By: #### C MP ####[address] [phone] ALT enzyme act/vol 11 U/L Normal 0-31 [facility] Comment on above: Performed By: #### C MP ####[address] [phone] AST enzyme act/vol 14 U/L Normal 0-31 [facility] Comment on above: Performed By: #### C MP ####[address] [phone] Bili,Total 0.8 mg/dl Normal 0.0-1.0 [facility] Comment on above: Result Comment: Gama ature : 1 Day 1.0-6.0 mg/dl 2 Day 6.0-8.0 mg/dl 3-5 Day 10.0-15.0 mg/dl Performed By: #### C MP ####[address] [phone] Calcium mass conc 9.8 mg/dL Normal 7.6-11.0 [facility] Comment on above: Performed By: #### C MP ####[address] [phone] Chloride molar conc 105 mmol/L Normal 96-108 [facility] Comment on above: Performed By: #### C MP ####[address] [phone] CO2 molar conc 26.2 mmol/L Normal 22.0-29.0 [facility] Comment on above: Performed By: #### C MP ####[address] [phone] Creatinine mass conc 0.82 mg/dL Normal 0.50-1.00 [facility] Comment on above: Result Comment: Gama ature 0.3-1.0 mg/dL Performed By: #### C MP ####[address] [phone] Glucose mass conc 89 mg/dL Normal 70-99 [facility] Comment on above: Result Comment: Henry simental for Diagnosis of Diabetes(Effective 03/07/11):Fasting specimen (no caloric intake for at least 8 hours). <100 mg/dl Normal 100-125 mg/dl Increased Risk for Diabetes >125 mg/dl Diagnostic for DiabetesRandom Glucose (any time of day without regard to last meal). >=200 mg/dl plus Classic Symptoms of Diabetes Performed By: #### C MP ####[address] [phone] Potassium molar conc 3.8 mmol/L Normal 3.3-5.1 [facility] Comment on above: Performed By: #### C MP ####[facility] [place], [place] [phone] Protein mass conc 8.1 g/dL Normal 5.9-8.4 [facility] Comment on above: Performed By: #### C MP ####[facility] [address] [phone] Sodium molar conc 138 mmol/L Normal 133-145 [facility] Comment on above: Performed By: #### C MP ####[facility] [address] [phone] Urea nitrogen mass conc 10 mg/dL Normal 4-19 [facility] Comment on above: Performed By: #### C MP ####[address] [phone] Complete Blood Counton 06-09 Differential Complete Manual Normal [facility] Comment on above: Performed By: #### C BC ####[facility] [address] [phone] Erythrocyte distribution width Auto Ratio (RBC) 12.7 % Normal 0.0-14.4 [facility] Comment on above: Performed By: #### C BC ####[facility] [address] [phone] Hematocrit Auto Volume Fraction (Bld) 45.1 % Normal 37.0-46.0 [facility] Comment on above: Performed By: #### C BC ####[facility] [address] [phone] Hemoglobin mass conc (Bld) 15.2 g/dL High 12.0-15.0 [facility] Comment on above: Performed By: #### C BC ####[address] [phone] Immature granulocytes/100 WBC (Bld) 0.30 % Normal [facility] Comment on above: Result Comment: Sherice ture Granulocyte Percent includes promyelocytes, myelocytes,and metamyelocytes. IG% > 1.0 indicates a left shift ispresent. With automated differentials, bands are includedin the neutrophil count and not in the Immature GranulocytePercent. Performed By: #### C BC ####[address] [phone] MCH Auto Entitic mass (RBC) 29.2 pg Normal 25.0-35.0 [facility] Comment on above: Performed By: #### C BC ####[place] [phone] MCHC Auto mass conc (RBC) 33.7 % Normal 31.0-37.0 [facility] Comment on above: Performed By: #### C BC ####[phone] MCV Auto Entitic volume (RBC) 86.6 fL Normal 78.0-96.0 [facility] Comment on above: Performed By: #### C BC ####[place] [phone] Nucleated RBC/100 WBC Ratio (Bld) 0.0 % Normal -1.0-0.0 [facility] Comment on above: Performed By: #### C BC ####[place] [phone] Platelet mean volume Auto Entitic volume (Bld) 10.5 fL Normal [facility] Comment on above: Result Comment: MPV is plateletrange and agedependent Performed By: #### C BC ####[place] [phone] Platelets Auto #/vol (Bld) 200 10*3/uL Normal 150-450 [facility] Comment on above: Performed By: #### C BC ####[address] [phone] RBC Auto #/vol (Bld) 5.21 10E12/L High 4.10-4.80 [facility] Comment on above: Performed By: #### C BC ####[address] [phone] WBC Auto #/vol (Bld) 9.0 10*3/uL Normal 4.5-13.0 [facility] Comment on above: Performed By: #### C BC ####[address] [phone] Manual Differentialon 2017 Absolute Neutrophil No. 6.6 Normal [facility] Comment on above: Performed By: #### M DIFF ####[address] [phone] Atypical Lymphocytes 7 % Normal 0-8 [facility] Comment on above: Performed By: #### M DIFF ####[address] [phone] Band Neutrophils 0 % Low 5-11 [facility] Comment on above: Performed By: #### M DIFF ####[address] [phone] Cell Morphology Normal Normal [facility] Comment on above: Performed By: #### M DIFF ####[facility] [address] [phone] Lymphocytes 18 % Low 25-45 [facility] Comment on above: Performed By: #### M DIFF ####[address] [phone] Metamyelocytes 0 % Normal 0-0 [facility] Comment on above: Performed By: #### M DIFF ####[address] [phone] Monocytes 2 % Low 3-6 [facility] Comment on above: Performed By: #### M DIFF ####[address] [phone] Myelocytes 0 % Normal 0-0 [facility] Comment on above: Performed By: #### M DIFF ####[address] [phone] Promyelocytes 0 % Normal 0-0 [facility] Comment on above: Performed By: #### M DIFF ####[address] [phone] Segmented Neutrophils 73 % High 34-64 [facility] Comment on above: Performed By: #### M DIFF ####[address] [phone] eGFRon 06-09-2018 GFR/1.73 sq M.predicted MDRD vol rate/area 79.58 Normal [facility] Comment on above: Result Comment: Refe rence range:> 3 months:>90 ml/min/1.73m^2Ref. Range change /26/2018 Performed By: #### E GFR ####[address] [phone] Vital Signs Date Time Vital Sign Value Performing Clinician Facility 09-26-2024 11:14-0500 Body mass index (BMI) [Ratio] 24.11 kg/m2 [employer] Work Phone: [facility] 09-26-2024 11:14050 Body weight 59.78 kg [employer] Work Phone: [facility] 09-26-2024 11:14-0500 Diastolic blood pressure 60 mm[Hg] [employer] Work Phone: [facility] 09-26-2024 11:14-0500 Systolic blood pressure 102 mm[Hg] Nasir Harding DO Work Phone: [facility] 09-19-2024 08:40-0500 Body mass index (BMI) [Ratio] 23.8 kg/m2 Renata Hurley PA Work Phone: [facility] 09-19-2024 08:40-0500 Body weight 59.02 kg Renata Vineet PA Work Phone: [facility] 09-19-2024 08:40-0500 Diastolic blood pressure 60 mm[Hg] Renata Vineet PA Work Phone: [facility] 09-19-2024 08:40-0500 Systolic blood pressure 100 mm[Hg] Renata Hurley PA Work Phone: [facility] 08-26-2024 14:45-0500 Body mass index (BMI) [Ratio] 23.05 kg/m2 Renata Vineet PA Work Phone: [facility] 08-26-2024 14:45-0500 Body weight 57.15 kg Renata Hurley PA Work Phone: [facility] 08-26-2024 14:45-0500 Diastolic blood pressure 62 mm[Hg] Renata Vineet PA Work Phone: [facility] 08-26-2024 14:45-0500 Systolic blood pressure 100 mm[Hg] Renata Hurley PA Work Phone: [facility] 08-20-2024 14:06-0500 Body mass index (BMI) [Ratio] 23.05 kg/m2 Virginia Royal [employer] Work Phone: [facility] 08-20-2024 14:06-0500 Body temperature 96.91 [degF] Virginia Royal [employer] Work Phone: [facility] 08-20-2024 14:06-0500 Body weight 57.15 kg Virginia Royal [employer] Work Phone: [facility] 08-20-2024 14:06-0500 Diastolic blood pressure 76 mm[Hg] Virginia Reddyenburg [employer] Work Phone: [facility] 08-20-2024 14:06-0500 Heart rate 97 /min Virginia Barryenburg [employer] Work Phone: [facility] 08-20-2024 14:06-0500 SaO2% (BldA) [Mass fraction] 98 % Virginia Barryenburg [employer] Work Phone: [facility] 08-20-2024 14:06-0500 Systolic blood pressure 124 mm[Hg] Virginia Haambarenburg [employer] Work Phone: [facility] 08-13-2024 11:18-0500 Body mass index (BMI) [Ratio] 22.68 kg/m2 Renata Manley PA Work Phone: [facility] 08-13-2024 11:18-0500 Body weight 56.25 kg Renata Manley PA Work Phone: [facility] 08-13-2024 11:18-0500 Diastolic blood pressure 68 mm[Hg] Renata Manley PA Work Phone: [facility] 08-13-2024 11:18-0500 Systolic blood pressure 110 mm[Hg] Renata Manley PA Work Phone: [facility] 08-08-2024 12:03-0500 Heart rate 90 /min Virginia Barryenburg [employer] Work Phone: [facility] 08-08-2024 11:40-0500 Body height 157.5 cm Virginia Barryenburg [employer] Work Phone: [facility] 08-08-2024 11:40-0500 Body mass index (BMI) [Ratio] 22.64 kg/m2 Virginia Haambarenburg [employer] Work Phone: [facility] 08-08-2024 11:40-0500 Body weight 56.16 kg Virginia Barryenburg [employer] Work Phone: [facility] 08-08-2024 11:40-0500 Diastolic blood pressure 72 mm[Hg] Virginia Hackenburg [employer] Work Phone: [facility] 08-08-2024 11:40-0500 SaO2% (BldA) [Mass fraction] 99 % Virginia Royal [employer] Work Phone: [facility] 08-08-2024 11:40-0500 Systolic blood pressure 110 mm[Hg] Virginia Royal [employer] Work Phone: [facility] 07-29-2024 14:52-0400 Body mass index (BMI) [Ratio] 22.5 kg/m2 Nasir Mehdi DO Work Phone: [facility] 07-29-2024 14:52-0400 Body weight 55.79 kg Nasir Mehdi DO Work Phone: [facility] 07-29-2024 14:52-0400 Diastolic blood pressure 70 mm[Hg] Nasir Mehdi DO Work Phone: [facility] 07-29-2024 14:52-0400 Systolic blood pressure 110 mm[Hg] Nasir Mehdi DO Work Phone: [facility] 07-03-2024 14:00-0400 Body mass index (BMI) [Ratio] 21.95 kg/m2 Renata MCNULTY Work Phone: [facility] 07-03-2024 14:00-0400 Body weight 54.43 kg Renata MCNULTY Work Phone: [facility] 07-03-2024 14:00-0400 Diastolic blood pressure 66 mm[Hg] Renata MCNULTY Work Phone: [facility] 07-03-2024 14:00-0400 Systolic blood pressure 100 mm[Hg] Renata MCNULTY Work Phone: [facility] 06-05-2024 10:31-0400 Body mass index (BMI) [Ratio] 21 kg/m2 Nasir Mehdi DO Work Phone: [facility] 06-05-2024 10:31-0400 Body weight 52.07 kg Nasir Mehdi DO Work Phone: [facility] [employer] 06-05-2024 10:31-0400 Diastolic blood pressure 68 mm[Hg] Nasir Mehdi DO Work Phone: [facility] [employer] 06-05-2024 10:31-0400 Systolic blood pressure 102 mm[Hg] Nasir Mehdi DO Work Phone: [facility] 07-20-2023 12:50-0400 Body height 157.48 cm Augusto Osman Other [employer] Other 07-20-2023 12:50-0400 Body mass index (BMI) [Ratio] 18.47 kg/m2 Augusto Osman Other [employer] Other 07-20-2023 12:50-0400 Body temperature 98.2 [degF] Augusto Osman Other [employer] Other 07-20-2023 12:50-0400 Body weight 45.81 kg Augusto Osman Other [employer] Other 07-20-2023 12:50-0400 Diastolic blood pressure 63 mm[Hg] Augusto Brewer Other [employer] Other 07-20-2023 12:50-0400 Respiratory rate 17 /min Augusto Osman Other [employer] Other 07-20-2023 12:50-0400 SaO2% (BldA) [Mass fraction] 98 % Augusto Osman Other [employer] Other 07-20-2023 12:50-0400 Systolic blood pressure 113 mm[Hg] Augusto Osman Other [employer] Other 07-17-2023 09:40-0400 Body height 157.48 cm Mel Tomlinson Other [employer] Other 07-17-2023 09:40-0400 Body mass index (BMI) [Ratio] 18.65 kg/m2 Mel Tomlinson Other [employer] Other 07-17-2023 09:40-0400 Body temperature 98.7 [degF] Mel Crenshawmond Other [employer] Other 07-17-2023 09:40-0400 Body weight 46.27 kg Mel Crenshawmond Other [employer] Other 07-17-2023 09:40-0400 Diastolic blood pressure 70 mm[Hg] Mel Crenshawmond Other [employer] Other 07-17-2023 09:40-0400 Respiratory rate 18 /min Mel Tomlinson Other [employer] Other 07-17-2023 09:40-0400 SaO2% (BldA) [Mass fraction] 98 % Mel Tomlinson Other [employer] Other 07-17-2023 09:40-0400 Systolic blood pressure 107 mm[Hg] Mel Crenshawmond Other [employer] Other 09-27-2022 22:50-0500 Body temperature 98.24 [degF] Gabino Bridgett [facility] 09-27-2022 22:50-0500 Diastolic blood pressure 81 mm[Hg] Gabino Bridgett [facility] 09-27-2022 22:50-0500 Heart rate 99 /min Gabino Bridgett [facility] 09-27-2022 22:50-0500 Respiratory rate 18 /min Gabino Bridgett [facility] 09-27-2022 22:50-0500 SaO2% (BldA) [Mass fraction] 99 % Gabino Bridgett [facility] 09-27-2022 22:50-0500 Systolic blood pressure 121 mm[Hg] Gabino Bridgett [facility] 04-30-2022 02:06-0400 Body weight 49.[address] NASIR HARDING . [facility] Comment on above: Performed By: #### RPRQ #### [facility] Laboratory [address] [place] [address] Dr. Valerio lAexis Encounters Encounter Date Encounter Type Care Provider Facility Start: 09-26-2024 End: 09-26-2024 ambulatory Nasir Mehdi Facility:[facility] Start: 09-26-2024 End: 09-26-2024 Bamboo flowsheet Nasir Mehdi DO Work Phone: [facility] Start: 09-26-2024 End: 09-26-2024 Bamboo flowsheet Nasir Mehdi DO Work Phone: [facility] Start: 09-26-2024 End: 09-26-2024 ambulatory NASIR MEHDI Not Available Start: 09-26-2024 End: 09-26-2024 Office outpatient visit 15 minutes Nasir Mehdi DO Work Phone: [facility] Comment on above: 36 weeks gestation o f ; Third trimester ; Hematuria, microscopic; SGA (small for gestational age) Start: 09-19-2024 End: 09-19-2024 Bamboo flowsheet Renata MCNULTY Work Phone: [facility] Start: 09-19-2024 End: 09-19-2024 Bamboo flowsheet Renata MCNULTY Work Phone: [facility] Start: 09-19-2024 End: 09-19-2024 Office outpatient visit 15 minutes Renata MCNULTY Work Phone: [facility] Comment on above: 35 weeks gestation o f ; Third trimester ; SGA (small for gestational age); Other hydronephrosis Start: 09-19-2024 End: 09-19-2024 ambulatory RENATA MANLEY Not Available Start: 08-26-2024 End: 08-26-2024 ambulatory RENATA MANLEY Not Available Start: 08-26-2024 End: 08-26-2024 Office outpatient visit 15 minutes Renata MCNULTY Work Phone: [facility] Comment on above: Upper respiratory in fection, acute (Primary Dx); Third trimester ; 32 weeks gestation of ; Sinusitis, unspecified chronicity, unspecified location; Anemia, unspecified type Start: 08-26-2024 End: 08-26-2024 Bamboo flowsheet Renata MCNULTY Work Phone: [facility] Start: 08-26-2024 End: 08-26-2024 Bamboo flowsheet Renata MCNULTY Work Phone: [facility] Start: 08-20-2024 End: 08-20-2024 ambulatory VIRGINIA A HACKENBURG Not Available Start: 08-20-2024 End: 08-20-2024 Bamboo flowsheet Virginia A Hackenburg [employer] Work Phone: [facility] Start: 08-20-2024 End: 08-20-2024 Bamboo flowsheet Virginia A Hackenburg [employer] Work Phone: [facility] Start: 08-20-2024 End: 08-20-2024 Office outpatient visit 25 minutes Virginia A Hackenburg [employer] Work Phone: [facility] Comment on above: Left arm pain (Prima ry Dx); Recurrent UTI Start: 08-13-2024 End: 08-13-2024 Bamboo flowsheet Renata MCNULTY Work Phone: [facility] Start: 08-13-2024 End: 08-13-2024 Bamboo flowsheet Renata Manley PA Work Phone: [facility] Start: 08-13-2024 End: 08-13-2024 ambulatory RENATA MANLEY Not Available Start: 08-13-2024 End: 08-13-2024 Office outpatient visit 15 minutes Renata Manley PA Work Phone: [facility] Comment on above: Third trimester preg cally; 30 weeks gestation of ; Diabetes mellitus screening Start: 08-08-2024 End: 08-08-2024 Bamboo flowsheet Virginia A Hackenburg [employer] Work Phone: [facility] Start: 08-08-2024 End: 08-08-2024 Bamboo flowsheet Virginia A Hackenburg [employer] Work Phone: [facility] Start: 08-08-2024 End: 08-08-2024 Telephone encounter Lee Lea MD Work Phone: [facility] Start: 08-08-2024 End: 08-08-2024 ambulatory VIRGINIA A HAAMBARENBURG Not Available Start: 08-08-2024 End: 08-08-2024 Office outpatient visit 15 minutes Virginia A Hackenburg [employer] Work Phone: [facility] Comment on above: Pyelonephritis affec ting in third trimester (Primary Dx); Recurrent UTI Start: 08-05-2024 End: 08-05-2024 ambulatory YAMINI DEAN [facility] Start: 08-04-2024 ambulatory NO PCP NO PCP [facility] Start: 08-03-2024 End: 08-05-2024 ambulatory LEE ZARATE [facility] Start: 07-29-2024 End: 07-29-2024 Office outpatient visit 15 minutes Nasir Harding DO Work Phone: [facility] Comment on above: Third trimester preg cally; 28 weeks gestation of ; Allergy, initial encounter; size inconsistent with dates Start: 07-29-2024 End: 07-29-2024 ambulatory NASIR MEHDI Not Available Start: 07-29-2024 End: 07-29-2024 Bamboo flowsheet Nasir Mehdi DO Work Phone: [facility] Start: 07-29-2024 End: 07-29-2024 Bamboo flowsheet Nasir Mehdi DO Work Phone: [facility] Start: 07-03-2024 End: 07-03-2024 Bamboo flowsheet Renata MCNULTY Work Phone: [facility] Start: 07-03-2024 End: 07-11-2024 Bamboo flowsheet Renata MCNULTY Work Phone: [facility] Start: 07-03-2024 End: 07-11-2024 Clinisync Result Encounter Nasir Mehdi DO Work Phone: [facility] External Department Unsolicited Start: 07-03-2024 End: 07-05-2024 External Result Encounter Renata MCNULTY Work Phone: [facility] External Department Unsolicited Start: 07-03-2024 End: 07-03-2024 Office outpatient visit 15 minutes Renata MCNULTY Work Phone: [facility] Comment on above: Diabetes mellitus sc reening; Well woman exam with routine gynecological exam; Heartburn during in second trimester Start: 07-03-2024 End: 07-03-2024 Patient encounter procedure Renata MCNULTY Work Phone: [facility] Healthcare Start: 07-03-2024 End: 07-03-2024 ambulatory RENATA MANLEY Not Available Start: 06-05-2024 End: 06-05-2024 Bamboo flowsheet Nasir Mehdi DO Work Phone: [facility] Start: 06-05-2024 End: 06-05-2024 Bamboo flowsheet Nasir Mehdi DO Work Phone: [facility] Start: 06-05-2024 End: 06-05-2024 Office outpatient visit 15 minutes Nasir Mehdi DO Work Phone: [facility] Comment on above: Second trimester pre gnancy Start: 06-05-2024 End: 06-05-2024 ambulatory NASIR MEHDI Not Available Start: 05-09-2024 End: 05-09-2024 ambulatory NASIR MEHDI Not Available Start: 03-11-2024 End: 03-11-2024 Emergency department patient visit NO PCP NO PCP [facility] Start: 11-26-2023 End: 11-27-2023 Emergency department patient visit SLIME ELLER [facility] Start: 07-26-2023 End: 07-26-2023 ambulatory Mel Tomlinson Other [facility] Other Start: 07-26-2023 Telephone encounter Mel VAZQUEZ [facility] Start: 07-20-2023 End: 07-20-2023 ambulatory Augusto Franklinton Other [employer] Other Start: 07-20-2023 Office outpatient vi sit 15 minutes Augusto Brewer [facility] Start: 07-17-2023 Office outpatient ne w 20 minutes Mel Tomlinson [facility] Start: 07-17-2023 End: 07-17-2023 ambulatory [employer] Mel Tomlinson Work Phone: [facility] Work Phone: Start: 07-17-2023 End: 07-17-2023 Departed Referred [employer] Mel Tomlinson Work Phone: [facility] [place] Work Phone: Start: 12-27-2022 End: 12-27-[address] DOCTOR SHARMA Facility:[facility] Start: 11-19-2022 End: 11-19-[address] DOCTOR SHARMA Facility:[facility] Start: 10-24-2022 End: 10-24-[address] DOCTOR SHARMA Facility:[facility] Start: 09-27-2022 End: 09-27-2022 Emergency department patient visit Gabino Urias [facility] Start: 08-30-2022 End: 08-30-[address] DOCTOR [...] Start: 08-04-2022 End: 08-04-[address] NASIR HARDNIG . Facility:[facility] Start: 08-01-2022 End: 08-01-2022 ambulatory [...] 02-15-2022 End: 02-15-2022 Patient encounter procedure Gabrielle Esqudea [facility] Start: 02-11-2022 End: 02-12-[address] NASIR HARDING . Facility:[facility] Start: 01-26-2022 End: 01-27-[address] NASIR HARDING . Facility:[facility] Start: 06-08-2018 End: 06-11-2018 Evaluation and management of inpatient ROSE MARY TOBY [facility] Start: 06-06-2018 End: 06-08-2018 Evaluation and management of inpatient CONOR SANTOYO [facility] Start: 02-22-2018 End: 02-22-2018 Patient encounter MAIRA BOUDREAUX [facility] Procedures Date Procedure Procedure Detail Performing [...] stick/tabl et rgnt non-auto w/o micrscp Nasir Mehdi DO Work Phone: Start: 07-03-2024 IGP,APTIMA HPV,AGE GDLN Nasir Mehdi DO Work Phone: Start: 07-03-2024 Microscopic observat ion [Identifier] in Cervix by Cyto stain Lee Lea MD Work Phone: Start: 07-03-2024 URETHRITIS/DISCHARGE PLUS VAGINITIS (HTRX) Renata MCNULTY Work Phone: Start: 06-05-2024 Urnls dip stick/tabl et rgnt non-auto w/o micrscp Nasir Mehdi DO Work Phone: Start: 08-24-2022 Delivery of Products of Conception, External Approach DR NASIR HARDING . Start: 08-24-2022 Drainage of Amniotic Fluid, Therapeutic from Products of Conception, Via Natural or Artificial Opening DR NASIR HARDING . Start: 08-24-2022 Introduction of Othe r Hormone into Peripheral Vein, Percutaneous Approach DR NASIR HARDING . Start: 08-24-2022 Repair Vulva, Oil Lease Broker al Approach DR NASIR HARDING . None (qualifier value) Ranjan Esqueda Plan of Treatment Date Care Activity Detail Author Start: 07-03-2027 Screening for malign ant neoplasm of cervix Pap Smear [facility] Start: 08-05-2025 Tobacco Screening Tobacco Screening [facility] Start: 08-04-2025 Adult BMI Screening Adult BMI Screen ing [facility] Start: 08-04-2025 Depression Screening Depression Scre ening [facility] Start: 06-02-2025 DTaP,Tdap and Td Vac cines (7 - Td or Tdap) DTaP,Tdap and Td Vaccines (7 - Td or Tdap) [facility] Start: 10-08-2024 End: 10-08-2024 Patient encounter procedure 10/08/2024 11:30 AM EST Routine [facility] [address] [facility] [place] [place] [phone] Nasir Harding, DO [address] [place], [place] [id number] [facility] Start: 09-26-2024 End: 09-26-2025 CULTURE, GROUP B STREP WITH SUSCEPTIBLITY CULTURE, GROUP B STREP WITH SUSCEPTIBLITY Lab Routine 36 weeks gestation of Third trimester Expected: 09/26/2024, Expires: 09/26/2025 [facility] Work Phone: Comment on above: Expected: 09/26/2024 , Expires: 09/26/2025 Start: 09-26-2024 End: 09-26-2025 US for US OB SCAN FOR GROWTH Imaging Routine SGA (small for gestational age) Expected: 09/26/2024 (Approximate), Expires: 09/26/2025 [facility] Comment on above: Expected: 09/26/2024 (Approximate), Expires: 09/26/2025 Start: 09-26-2024 End: 09-26-2024 Patient encounter procedure 09/26/2024 10:30 AM EST Routine [facility] [address] [place] [phone] Nasir Harding, DO [address] [place] [address] [facility] Start: 09-19-2024 End: 09-19-2024 Professional / ancillary services management 09/19/2024 2:30 PM EST Ancillary Procedure [facility] [address] [facility] [place] [phone] [facility] Start: 09-19-2024 End: 09-19-2025 US for US OB SCAN FOR GROWTH Imaging Routine SGA (small for gestational age) Expected: 09/19/2024 (Approximate), Expires: 09/19/2025 [facility] Comment on above: Expected: 09/19/2024 (Approximate), Expires: 09/19/2025 Start: 09-19-2024 End: 09-19-2024 Patient encounter procedure 09/19/2024 8:40 AM EST Routine [facility] [address] [facility] [place] [phone] Renata Manley PA [address] [facility] [address] [place], [place] [id number] Arrived [facility] Comment on above: Arrived Start: 09-16-2024 End: 09-16-2024 Patient encounter procedure 09/16/2024 10:30 AM EST Routine [facility] [address] [facility] [place] [place] [phone] Nasir Harding DO [address] [place] [address] [facility] Start: 09-07-2024 End: 08-08-2025 Basic metabolic 2000 panel - Serum or Plasma Basic Metabolic Panel Lab Routine Primary hydronephrosis Expected: 09/07/2024 (Approximate), Expires: 08/08/2025 [employer] Comment on above: Expected: 09/07/2024 (Approximate), Expires: 08/08/2025 Start: 09-07-2024 End: 08-08-2025 US Retroperitoneum Ultrasound retroperitoneal complete Imaging Routine Primary hydronephrosis Expected: 09/07/2024 (Approximate), Expires: 08/08/2025 [facility] Work Phone: Comment on above: Expected: 09/07/2024 (Approximate), Expires: 08/08/2025 Start: 08-26-2024 End: 08-26-2024 Patient encounter procedure 08/26/2024 2:20 PM EST Routine [facility] [address] [place] [phone] Renata Manley, PA [address] [place] [address] [place] [address] [facility] Start: 08-20-2024 End: 08-20-2025 US.doppler Upper extremity vein - left Vascular US upper extremity venous duplex left Imaging STAT Left arm pain Expected: 08/20/2024, Expires: 08/20/2025 [facility] Work Phone: Comment on above: Expected: 08/20/2024 , Expires: 08/20/2025 Start: 08-13-2024 End: 08-13-2025 CBC panel - Blood by Automated count CBC Lab Routine Diabetes mellitus screening Expected: 08/13/2024 (Approximate), Expires: 08/13/2025 [facility] Work Phone: Comment on above: Expected: 08/13/2024 (Approximate), Expires: 08/13/2025 Start: 08-13-2024 End: 08-13-2025 Measurement of glucose 1 hour after glucose challenge for glucose tolerance test Glucose tolerance, 1 hour Lab Routine Diabetes mellitus screening Expected: 08/13/2024 (Approximate), Expires: 08/13/2025 [facility] Comment on above: Expected: 08/13/2024 (Approximate), Expires: 08/13/2025 Start: 08-13-2024 End: 08-13-2024 Patient encounter procedure 08/13/2024 10:50 AM EST Routine [facility] [address] [place] [phone] Renata Manley PA [address] [place] [address] [facility] Start: 08-13-2024 End: 08-13-2024 Professional / ancillary services management 08/13/2024 10:30 AM EST Ancillary Procedure [facility] [address] [place] [address] [facility] Start: 07-29-2024 End: 07-29-2024 [...] EDT Ancillary Procedure [facility] [address] [facility] [place] [place] [address] [facility] Start: 07-03-2024 End: 07-03-2025 CBC panel - Blood by Automated count CBC Lab Routine Diabetes mellitus screening Expected: 07/03/2024 (Approximate), Expires: 07/03/2025 [facility] Work Phone: Comment on above: Expected: 07/03/2024 (Approximate), Expires: 07/03/2025 Start: 07-03-2024 End: 07-03-2025 Measurement of glucose 1 hour after glucose challenge for glucose tolerance test Glucose tolerance, 1 hour Lab Routine Diabetes mellitus screening Expected: 07/03/2024 (Approximate), Expires: 07/03/2025 [facility] Comment on above: Expected: 07/03/2024 (Approximate), Expires: 07/03/2025 Start: 07-03-2024 End: 07-03-2024 Patient encounter procedure 07/03/2024 1:30 PM EDT Routine [facility] [address] [place] [id number] Renata Manley PA [address] [place] [address] Arrived [facility] Comment on above: Arrived Start: 06-05-2024 End: 06-05-2024 Patient encounter procedure 06/05/2024 10:50 AM EDT Routine [facility] [address] [place] [id number] Nasir Harding, DO [address] [place] [address] Arrived [facility] Comment on above: Arrived Start: 06-02-2024 COVID-19 Vaccine () COVID-19 Vaccine () [facility] Start: 06-02-2024 Influenza vaccination [facility] Start: 07-17-2023 [facility] Start: 2002 Screening for Chlamy yoel trachomatis Chlamydia Screening [facility] Start: 2002 Tobacco Counseling Tobacco Counselin g [facility] Atopobium vaginae DN A [Presence] in Vaginal fluid by CHULA with probe detection [facility] Bacteria identified in Urine by Culture Urine culture Microbiology Routine Hematuria, microscopic Ordered: 09/26/2024 [facility] Comment on above: Ordered: 09/26/2024 Bacterial vaginosis associated bacterium 2 DNA [Presence] in Vaginal fluid by CHULA with probe detection [facility] Cytology Cervical or vaginal smear or scraping study Pap Smear Pathology and Cytology Routine Well woman exam with routine gynecological exam Ordered: 07/03/2024 [facility] Comment on above: Ordered: 07/03/2024 Hemoglobin A1c/Hemoglobin.total in Blood Hemoglobin A1c Lab Routine 35 weeks gestation of Third trimester Ordered: 09/19/2024 [facility] Work Phone: Comment on above: Ordered: 09/19/2024 Megasphaera sp type 1 DNA [Presence] in Vaginal fluid by CHULA with probe detection [facility] Immunizations Immunization Date Immunization Notes Care Provider Fa cili 09-17-2018 influenza, injectabl e, quadrivalent, preservative free Renata MCNULTY Work Phone: [facility] 09-17-2018 meningococcal B vaccine, recombinant, OMV, adjuvanted Renata MCNULTY Work Phone: [facility] 09-17-2018 influenza virus vaccine, unspecified formulation Renata MCNULTY Work Phone: [facility] 07-06-2018 meningococcal B vaccine, recombinant, OMV, adjuvanted Renata MCNULTY Work Phone: [facility] 07-06-2018 meningococcal polysaccharide (groups A, C, Y and W-135) diphtheria toxoid conjugate vaccine (MCV4P) Renata MCNULTY Work Phone: [facility] 11-25-2017 influenza, seasonal, injectable Gabrielle Esqueda [facility] Comment on above: Reason for Medicatio n: Other (see comment) 11-25-2017 influenza, injectabl e, quadrivalent, preservative free Renata MCNULTY Work Phone: [facility] 12-01-2015 hepatitis A vaccine, pediatric/adolescent dosage, 2 dose schedule Renata MCNULTY Work Phone: [facility] 12-01-2015 human papilloma viru s vaccine, quadrivalent Renata MCNULTY Work Phone: [facility] 12-01-2015 influenza virus vaccine, whole virus Renata MCNULTY Work Phone: [facility] 08-04-2015 human papilloma viru s vaccine, quadrivalent Renata MCNULTY Work Phone: [facility] 06-02-2015 hepatitis A vaccine, pediatric/adolescent dosage, 2 dose schedule Renata MCNULTY Work Phone: [facility] 06-02-2015 human papilloma viru s vaccine, quadrivalent Renata MCNULTY Work Phone: [facility] 06-02-2015 meningococcal ACWY vaccine, unspecified formulation Renata MCNULTY Work Phone: [facility] 06-02-2015 tetanus toxoid, redu edi diphtheria toxoid, and acellular pertussis vaccine, adsorbed Renata MCNULTY Work Phone: [facility] 06-01-2007 diphtheria, tetanus toxoids and acellular pertussis vaccine, unspecified formulation Renata Vineet PA Work Phone: [facility] 06-01-2007 measles, mumps, rubella, and varicella virus vaccine Renata Vineet PA Work Phone: [facility] 06-01-2007 poliovirus vaccine, inactivated Renata MCNULTY Work Phone: [facility] 10-24-2003 diphtheria, tetanus toxoids and acellular pertussis vaccine, unspecified formulation Renata Vineet PA Work Phone: [facility] 10-24-2003 poliovirus vaccine, unspecified formulation Renata Manley PA Work Phone: [facility] 10-10-2003 hepatitis B vaccine, pediatric or pediatric/adolescent dosage Renata MCNULTY Work Phone: [facility] 10-10-2003 measles, mumps and rubella virus vaccine Renata Hurley PA Work Phone: [facility] 10-10-2003 pneumococcal conjuga te vaccine, 7 valent Renata MCNULTY Work Phone: [facility] 04-10-2003 varicella virus vaccine Renata Vineet HAMLET Work Phone: [facility] 2002 diphtheria, tetanus toxoids and acellular pertussis vaccine, unspecified formulation Renata MCNULTY Work Phone: [facility] 2002 pneumococcal conjuga te vaccine, 7 valent Renata MCNULTY Work Phone: [facility] 2002 diphtheria, tetanus toxoids and acellular pertussis vaccine, unspecified formulation Renata MCNULTY Work Phone: [facility] 2002 pneumococcal conjuga te vaccine, 7 valent Renata Manley PA Work Phone: [facility] 2002 poliovirus vaccine, inactivated Renata MCNULTY Work Phone: [facility] 2002 diphtheria, tetanus toxoids and acellular pertussis vaccine, unspecified formulation Renata MCNULTY Work Phone: [facility] 2002 hepatitis B vaccine, pediatric or pediatric/adolescent dosage Renata MCNULTY Work Phone: [facility] 2002 pneumococcal conjuga te vaccine, 7 valent Renata MCNULTY Work Phone: [facility] 2002 poliovirus vaccine, inactivated Renata MCNULTY Work Phone: [facility] 2002 diphtheria, tetanus toxoids and acellular pertussis vaccine, unspecified formulation Renata MCNULTY Work Phone: [facility] 2002 pneumococcal conjuga te vaccine, 7 valent Renata MCNULTY Work Phone: [facility] 2002 poliovirus vaccine, unspecified formulation Renata MCNULTY Work Phone: [facility] 2002 hepatitis B vaccine, pediatric or pediatric/adolescent dosage Renata MCNULTY Work Phone: [facility] NEGATED: Highlighted row has not occurred!11-20-2019 influenza virus vaccine, live, attenuated, for intranasal use Gabrielle Yin [facility] Payers Date Payer Category Payer Medicaid [id number] 2023 Private Health Insurance [facility] [id number] 2002 Unknown [id number] 2.16.840.1.574120.3.579.2. 593 2002 Unknown [id number] 2.16.840.1.834452.3.579.2. 593 2002 Unknown [id number] 2.16.840.1.457422.3.579.2. 593 2002 Unknown [id number] 2.16.840.1.507328.3.579.2. 593 2002 Unknown [id number] 2.16.840.1.063792.3.579.2. 593 2002 Unknown [id number] 2.16.840.1.590914.3.579.2. 593 2002 Unknown [id number] 2.16.840.1.325371.3.579.2. 593 2002 Unknown [id number] 2.16.840.1.559313.3.579.2. 593 2002 Unknown [id number] 2.16.840.1.767518.3.579.2. 593 2002 Unknown [id number] 2.16.840.1.566466.3.579.2. 593 2002 Unknown [id number] 2.16.840.1.289382.3.579.2. 593 2002 Unknown [id number] 2.16.840.1.443210.3.579.2. 593 2002 Unknown [id number] 2.16.840.1.704252.3.579.2. 593 2002 Unknown [id number] 2.16.840.1.196595.3.579.2. 593 2002 Unknown [id number] 2.16.840.1.191526.3.579.2. 593 2002 Unknown [id number] 2.16.840.1.780452.3.579.2. 593 2002 Unknown [id number] 2.16.840.1.874138.3.579.2. 593 2002 Unknown [id number] 2.16.840.1.211629.3.579.2. 593 2002 Unknown [id number] 2.16.840.1.199149.3.579.2. 593 2002 Unknown [id number] 2.16.840.1.814791.3.579.2. 593 2002 Unknown [id number] 2.16.840.1.729927.3.579.2. 593 2002 Unknown [id number] 2.16.840.1.650701.3.579.2. 593 2002 Unknown [id number] 2.16.840.1.973759.3.579.2. 593 2002 Unknown [id number] 2.16.840.1.604497.3.579.2. 593 2002 Unknown [id number] 2.16.840.1.676002.3.579.2. 593 2002 Unknown [id number] 2.16.840.1.109169.3.579.2. 593 2002 Unknown [id number] 2.16.840.1.224002.3.579.2. 593 2002 Unknown [id number] 2.16.840.1.515850.3.579.2. 593 2002 Unknown [id number] 2.16.840.1.351966.3.579.2. 593 2002 Unknown [id number] 2.16.840.1.687621.3.579.2. 593 2002 Unknown [id number] 2.16.840.1.820548.3.579.2. 593 2002 Unknown [id number] 2.16.840.1.046968.3.579.2. 593 2002 Unknown [id number] 2.16.840.1.217055.3.579.2. 593 2002 Unknown [id number] 2.16.840.1.724634.3.579.2. 1286 2002 Unknown [id number] 2.16.840.1.775825.3.579.2. 1286 2002 Unknown [id number] 2.16.840.1.069399.3.579.2. 1286 2002 Unknown [id number] 2.16.840.1.005799.3.579.2. 1286 2002 Unknown [id number] 2.16.840.1.731366.3.579.2. 9 2002 Unknown [id number] 2.16.840.1.680428.3.579.2. 9 2002 Unknown [id number] 2.16.840.1.173752.3.579.2. 1258 2002 Unknown [id number] 2.16.840.1.565876.3.579.2. 9 2002 Unknown [id number] 2.16.840.1.085363.3.579.2. 1258 2002 Unknown [id number] 2.16.840.1.427211.3.579.2. 9 2002 Unknown [id number] 2.16.840.1.144977.3.579.2. 1258 2002 Unknown [id number] 2.16.840.1.807816.3.579.2. 9 2002 Unknown [id number] 2.16.840.1.381798.3.579.2. 1258 2002 Unknown [id number] 2.16.840.1.408987.3.579.2. 9 2002 Unknown [id number] 2.16.840.1.227112.3.579.2. 1259 1959 Self-pay 1959 Unknown [id number] 1959 Unknown [id number] Unknown [id number] 2.16.840.1.316262.3.579.2. 593 Unknown [id number] 2.16.840.1.084167.3.579.2. 531 Social History Date Type Detail Facility Start: 05-19-2021 Tobacco smoking status Never s moked tobacco (finding) [facility] Comment on above: denies denies denies Tobacco smoking status [facility] Comment on above: denies denies denies Start: 05-09-2024 End: 08-08-2024 Sex Assigned At Female [facility] Start: 2002 Sex Assigned At Female F [facility] Start: 05-09-2024 End: 08-08-2024 Tobacco smoking status [...] [facility] Start: 10-02-2023 [facility] smoker [facility] Has the [employer], [employer], or [employer] threatened to shut off services in your home in past 12Mo No [facility] Are you now , , , , never or living with a partner? Never [facility] How hard is it for y ou to pay for the very basics like food, housing, medical care, and heating Not very hard [facility] The thought of alex mendieta myself has occurred to me Never [facility] Start: 08-04-2024 Tobacco Comment Pt states quit 2 weeks ago [facility] Start: 12-09-2020 Sex Female (finding) [facility] Start: 08-04-2024 Gender identity Identifies as female gender (finding) [facility] Start: 08-04-2024 Sexual orientation Heterosexual (asim wang) [facility] Start: 08-20-2024 Alcohol Comment Caffine: 1 cup daily [facility] Goals Date Patient Goal Desired Activity /State Personal health goal Functional Status Date Assessment Result Facility 09-27-2022 Functional Status Yes [facility] Clinical Notes 04-14-2021 to 09-26-2024 Taylor Hinton, NANCY - 09/26/2024 10:30 AM Johanny Schultz, NANCY - 09/19/2024 8:40 AM HAMLET Gann - 08/26/2024 2:20 PM Renae Royal NP - 08/20/2024 2:00 PM EST Note Date & Type Note Facility 09-26-2024 [facility] N[facility] Reason for Appointment: Patient [...] 19.0-19.9 in adult 06/12/2023 Childhood eating disorder ([facility]) 06/12/2023 Depressive disorder ([facility]) 06/07/2018 Disorder of refraction and accommodation 02/11/2014 Dysmenorrhea 06/12/2023 Menorrhagia with regular cycle 06/12/2023 Myopia 01/07/2015 Overactive bladder 09/15/2016 Overdose of antipsychotic, intentional self-harm, initial encounter ([facility]) 06/06/2018 Pharyngitis 06/12/2023 Tonsillitis 06/12/2023 Recurrent [...] nursing note reviewed. Exam conducted with a popcorn vendor present. Vitals: Estimated body mass index is [...] Nasir Harding DO documented in this encounter [facility] 09-19-2024 History of Presen t illness [...] 19.0-19.9 in adult 06/12/2023 Childhood eating disorder ([facility]) 06/12/2023 Depressive disorder ([facility]) 06/07/2018 Disorder of refraction and accommodation 02/11/2014 Dysmenorrhea 06/12/2023 Menorrhagia with regular cycle 06/12/2023 Myopia 01/07/2015 Overactive bladder 09/15/2016 Overdose of antipsychotic, intentional self-harm, initial encounter ([facility]) 06/06/2018 Pharyngitis 06/12/2023 Tonsillitis 06/12/2023 Recurrent UTI [...] nursing note reviewed. Exam conducted with a popcorn vendor present. Vitals: Estimated body mass index is [...] Nasir Harding DO documented in this encounter [facility] 08-26-2024 History of Presen t illness [...] 19.0-19.9 in adult 06/12/2023 Childhood eating disorder ([facility]) 06/12/2023 Depressive disorder ([facility]) 06/07/2018 Disorder of refraction and accommodation 02/11/2014 Dysmenorrhea 06/12/2023 Menorrhagia with regular cycle 06/12/2023 Myopia 01/07/2015 Overactive bladder 09/15/2016 Overdose of antipsychotic, intentional self-harm, initial encounter ([facility]) 06/06/2018 Pharyngitis 06/12/2023 Tonsillitis 06/12/2023 Recurrent UTI [...] of: HAMLET Underwood documented in this encounter [facility] 08-20-2024 History of Presen t illness [...] follow-ups on file. documented in this encounter [facility] 08-13-2024 History of Presen t illness [...] 19.0-19.9 in adult 06/12/2023 Childhood eating disorder ([facility]) 06/12/2023 Depressive disorder ([facility]) 06/07/2018 Disorder of refraction and accommodation 02/11/2014 Dysmenorrhea 06/12/2023 Menorrhagia with regular cycle 06/12/2023 Myopia 01/07/2015 Overactive bladder 09/15/2016 Overdose of antipsychotic, intentional self-harm, initial encounter ([facility]) 06/06/2018 Pharyngitis 06/12/2023 Tonsillitis 06/12/2023 Recurrent [...] notes from er visit with transfer to [place] reviewed. Pt was sent for mri for [...] of: HAMLET Underwood documented in this encounter [facility] 08-08-2024 Miscellaneous Notes Formattin g of this note might be different from the original. Needs renal ultrasound, labs, and follow up with me in 1 month documented in this encounter [facility] 08-08-2024 Telephone encount er Note Needs renal ultrasound, labs, and follow up with me in 1 month [facility] 08-08-2024 History of Presen t illness Narrative [...] then. Recurrent UTI documented in this encounter [facility] 07-29-2024 History of Presen t illness [...] 19.0-19.9 in adult 06/12/2023 Childhood eating disorder ([facility]) 06/12/2023 Depressive disorder ([facility]) 06/07/2018 Disorder of refraction and accommodation 02/11/2014 Dysmenorrhea 06/12/2023 Menorrhagia with regular cycle 06/12/2023 Myopia 01/07/2015 Overactive bladder 09/15/2016 Overdose of antipsychotic, intentional self-harm, initial encounter ([facility]) 06/06/2018 Pharyngitis 06/12/2023 Tonsillitis 06/12/2023 Recurrent [...] nursing note reviewed. Exam conducted with a popcorn vendor present. Vitals: Estimated body mass index is [...] Nasir Harding DO documented in this encounter [facility] 07-03-2024 History of Presen t illness [...] 19.0-19.9 in adult 06/12/2023 Childhood eating disorder ([facility]) 06/12/2023 Depressive disorder ([facility]) 06/07/2018 Disorder of refraction and accommodation 02/11/2014 Dysmenorrhea 06/12/2023 Menorrhagia with regular cycle 06/12/2023 Myopia 01/07/2015 Overactive bladder 09/15/2016 Overdose of antipsychotic, intentional self-harm, initial encounter ([facility]) 06/06/2018 Pharyngitis 06/12/2023 Tonsillitis 06/12/2023 Recurrent [...] nursing note reviewed. Exam conducted with a popcorn vendor present. Vitals: Estimated body mass index is [...] of: HAMLET Underwood documented in this encounter [facility] 06-05-2024 History of Presen t illness [...] 19.0-19.9 in adult 06/12/2023 Childhood eating disorder ([facility]) 06/12/2023 Depressive disorder ([facility]) 06/07/2018 Disorder of refraction and accommodation 02/11/2014 Dysmenorrhea 06/12/2023 Menorrhagia with regular cycle 06/12/2023 Myopia 01/07/2015 Overactive bladder 09/15/2016 Overdose of antipsychotic, intentional self-harm, initial encounter ([facility]) 06/06/2018 Pharyngitis 06/12/2023 Tonsillitis 06/12/2023 Recurrent [...] nursing note reviewed. Exam conducted with a popcorn vendor present. Vitals: Estimated body mass index is [...] Nasir Harding DO documented in this encounter [facility] 07-20-2023 Evaluation note Encounter Date Diagnosis [...] and subcutaneous tissue, unspecified (ICD-10 - L08.9) [facility] Other 10-16-2023 Evaluation note* Encounter Date Diagnosis [...] of candidiasis of vagina (ICD-10 - Z86.19) [facility] Other 12-28-2022 Hospital Discharge instructions Patient Education 09/27/2022 23:49:20 Upper Respiratory Infection, Adult, Cgpw-nh-Bvmx Upper Respiratory Infection, Adult An upper respiratory [...] and other clear broths. General instructions Take ykpg-rza-whsknur and prescription medicines only as told by [...] not have soap and water, use hand salvage [employer] wood [employer]. Avoid touching your mouth, face, eyes, or [...] get better within 7 10 days. Take yzrj-rmv-attumqg and prescription medicines only as told by your doctor. This information is not intended to replace advice given to you by your health care provider. Make sure you discuss any questions you have with your health care provider. Document Released: 03/06/2009 Document Revised: 09/26/2019 Document Reviewed: 05/11/2018 [employer] Patient Education 2020 [employer]. 09/27/2022 23:49:20 Cough, Adult, Aepr-nf-Jhof Cough, Adult A cough helps to clear [...] Follow these instructions at home: Medicines Take euoy-qdv-jyqjtni and prescription medicines only as told by [...] Many things can cause a cough. Take cdqr-mzw-nmrzmwv and prescription medicines only as told by [...] 05/31/2012 Document Revised: 10/07/2019 Document Reviewed: 10/07/2019 [employer] Patient Education 2020 [employer]. Follow Up Care 09/27/2022 22:50:28 With:Fatoumata Oneill Address:Unknown When:09/30/2022 Comments:Follow-up with your primary care provider in 3 to 5 days. If symptoms worsen, do not improve, or new symptoms arise please report back to emergency department for further evaluation. [facility]12-27-2022 Evaluation + Plan noteExtracted from: Title:ED Note Author:Felipe GOMEZ, Rober Burnette te:09/27/22 Constipation (K59.00: Consti pation, unspecified) Upper respiratory infection, viral (J06.9: Acute upper respiratory infection, unspecified) Orders: polyethylene glycol 3350, 17 gm, Oral, Daily, # 12 EA, Refills(s) 0, Pharmacy: [facility]/pharmacy #[id number], 157.5, cm, 09/27/22 22:57:00 EST, Height/Length Dosing, 51.3, kg, 09/27/22 22:57:00 EST, Weight Dosing Group A Strep by PCR Rapid Strep w/rfx Diagnostic Tests Pending * Group A Strep by PCR 09/27/22 [facility]07-14-2021 Evaluation + Plan note Future Scheduled Tests Laboratory* Rapid Strep w/rfx 04/14/21 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 [facility] Diagnosis Pyelonephritis affecting in third trimester- Primary Recurrent UTI Urinary tract infection, site not specified [facility] Diagnosis Left arm pain- Primary Pain in soft tissues of limb Recurrent UTI Urinary tract infection, site not specified [facility]* Diagnosis Third trimester state, incidental 30 weeks gestation of Diabetes mellitus screening Screening for diabetes mellitus [facility]* Diagnosis Third trimester state, incidental 28 weeks gestation of Allergy, initial encounter size inconsistent with dates [facility] Diagnosis Upper respiratory infection, acute- Primary Third trimester state, incidental 32 weeks gestation of Sinusitis, unspecified chronicity, unspecified location Anemia, unspecified type [facility]* Diagnosis Second trimester state, incidental [facility]* Diagnosis 35 weeks gestation of Third trimester state, incidental SGA (small for gestational age) Pgfki-ldj-zxinr without mention of malnutrition, unspecified (weight) Other hydronephrosis [facility] Diagnosis 36 weeks gestation of Third trimester state, incidental Hematuria, microscopic Microscopic hematuria SGA (small for gestational age) Rmlfn-jxy-vfdmh without mention of malnutrition, unspecified (weight) documented in [facility] encounter [facility] Narrative No data available for this section [facility] No data available for this section [facility] on filedocumented in this encounter [facility] SystemProgress note No data available for this section [facility] Summary Purpose Family History No Family History [...] section and content) DATE CREATED AUTHOR 07/16/2018 [facility] DATE CREATED AUTHOR AUTHOR'S ORGANIZ ATION 11/22/2019 [facility] DATE CREATED AUTHOR AUTHOR'S ORGANIZ ATION 12/30/2022 [facility] DATE CREATED AUTHOR AUTHOR'S ORGANIZ ATION 10/01/[address] [facility] DATE CREATED AUTHOR AUTHOR'S ORGANIZ ATION 03/14/2024 [facility] DATE CREATED AUTHOR AUTHOR'S ORGANIZ ATION 08/07/2024 [facility] DATE CREATED AUTHOR AUTHOR'S ORGANIZ ATION 08/29/2024 [facility] DATE CREATED AUTHOR AUTHOR'S ORGANIZ ATION 09/27/2024 [facility] EPIC DATE CREATED AUTHOR AUTHOR'S ORGANIZ ATION 09/29/2024 [facility] Patient Care team informatio n (unrecognized section and content) Team Status: Inactive Member Role Status Dates Mel Tomlinson , [employer] B[employer] DIRECT[employer]-C Attending Provider Active Premix Operator Concentrate Relationship Specialty Start Date End Date Jesusita Torrez MD [address] [place] [address] PCP - General Family Medicine 03/13/24 Premix Operator Concentrate Relationship Specialty Start Date End Date Jesusita Torrez MD [address] [place] [address] PCP - General Family Medicine 03/13/24 Premix Operator Concentrate Relationship Specialty Start Date End Date Jesusita Torrez MD [address] [place] [address] PCP - General Family Medicine 03/13/24 Premix Operator Concentrate Relationship Specialty Start Date End Date No Pcp, [place] [address] PCP - General Family Medicine 11/26/23 Premix Operator Concentrate Relationship Specialty Start Date End Date Jesusita Torrez MD [address] [place] [address] PCP - General Family Medicine 03/13/24 Premix Operator Concentrate Relationship Specialty Start Date End Date Jesusita Torrez MD [address] [place] [address] PCP - General Family Medicine 03/13/24 Premix Operator Concentrate Relationship Specialty Start Date End Date Jesusita Torrez MD [address] [place] [address] PCP - General Family Medicine 03/13/24 Premix Operator Concentrate Relationship Specialty Start Date End Date Jesusita Torrez MD [address] [place] [address] PCP - General Family Medicine 03/13/24 Premix Operator Concentrate Relationship Specialty Start Date End Date Jesusita Torrez MD [address] [place] [address] PCP - General Family Medicine 03/13/24 Premix Operator Concentrate Relationship Specialty Start Date End Date Jesusita Torrez MD [address] [place] [address] PCP - General Family Medicine 03/13/24 Premix Operator Concentrate Relationship Specialty Start Date End Date Jesusita Torrez MD [address] [place] [address] PCP - General Family Medicine 03/13/24 Premix Operator Concentrate Relationship Specialty Start Date End Date Jesusita Torrez MD [address] [place] [address] PCP - General Family Medicine 03/13/24 Premix Operator Concentrate Relationship Specialty Start Date End Date Jesusita Torrez MD [address] [place] [address] PCP - General Family Medicine 03/13/24 Premix Operator Concentrate Relationship Specialty Start Date End Date Jesusita Torrez MD [address] [place] [address] PCP - General Family Medicine 03/13/24 Premix Operator Concentrate Relationship Specialty Start Date End Date Jesusita Torrez MD [address] [facility] [place] [address] PCP - General Family Medicine 03/13/24 Premix Operator Concentrate Relationship Specialty Start Date End Date Jesusita Torrez MD [address] [facility] [place] [address] PCP - General Family Medicine 03/13/24 Premix Operator Concentrate Relationship Specialty Start Date End Date Jesusita Torrez MD [address] [facility] [place] [address] PCP - General Family Medicine 03/13/24 Goals [...] BE BASED ON THE PRIMARY CLINICAL RECORDS. [facility]. provides no warranty or guarantee of the accuracy or completeness of information in this document.
[2024-09-29 07:32] VITALS: BP 104/70; PULSE 100
[2024-09-29 07:58] LABS: Bilirubin Urine NEGATIVE (NEGATIVE); Blood Urine NEGATIVE (NEGATIVE); Clarity Urine CLEAR (CLEAR); Color Urine LT. YELLOW (YELLOW); Glucose Urine UA NEGATIVE (NEGATIVE); Ketones Urine NEGATIVE (NEGATIVE); Leukocyte Esterase Urine NEGATIVE (NEGATIVE); Nitrite Urine NEGATIVE (NEGATIVE); Protein Urine NEGATIVE (NEG/TRACE); Urobilinogen Urine 0.2 EU/dL (0.2-1.0); pH Urine 6.5 (5.0-9.0)
[2024-09-29 08:03] LABS: Urine Microscopic Indicated NO
== END 2024-09-29 09:56 | disposition home or self-care (01) ==
PROVIDERS: Admitting Provider Obstetrics & Gynecology; Visit Provider Obstetrics & Gynecology
DX: O26.893 Other specified pregnancy related conditions, third trimester (principal); R10.9 Unspecified abdominal pain; Z3A.37 37 weeks gestation of pregnancy
CPT/HCPCS: 59025; 81003; G0378; G0379

== ENCOUNTER 2024-09-30 12:38 | Outpatient (OUT) | payer OTHER, SELFPAY ==
[2024-09-30 12:51] LABS: Basophils Percent Auto 0.2 % (0.2-2.0); Eosinophils Absolute Auto 0.1 10^3/uL (0.0-0.7); Eosinophils Percent Auto 0.9 % (0.9-7.0); Hematocrit 32.7 % (36.0-48.0); Hemoglobin 10.8 g/dL (12.0-16.0); Immature Granulocytes Abs Auto 0.18 10^3/uL (0.00-0.03); Immature Granulocytes Pct Auto 1.8 % (0.0-0.5); Lymphocytes Absolute Auto 1.7 10^3/uL (1.2-3.8); Lymphocytes Percent Auto 17.3 % (20.5-60.0); Mean Corpuscular Hemoglobin 27.1 pg (26.7-34.0); Mean Platelet Volume 9.5 fL (9.5-13.5); Monocytes Absolute Auto 0.8 10^3/uL (0.3-0.8); Monocytes Percent Auto 8.2 % (1.7-12.0); Neutrophils Percent Auto 71.6 % (43.0-75.0); Platelet Count 182 10^3/uL (150-450); Red Blood Count 3.99 10^6/uL (4.20-5.40); Red Cell Distribution Width 13.1 % (11.0-15.0); White Blood Count 9.7 10^3/uL (4.0-11.0)
[2024-09-30 13:01] LABS: Estimated Average Glucose 94 mg/dL; Glycohemoglobin A1C 4.9 % (4.5-6.2)
== END 2024-09-30 12:39 | disposition home or self-care (01) ==
LOC: LAB 12:38
PROVIDERS: Visit Provider Obstetrics & Gynecology
DX: Z13.1 Encounter for screening for diabetes mellitus (principal); Z3A.35 35 weeks gestation of pregnancy
CPT/HCPCS: 36415; 83036; 85025

== ENCOUNTER 2024-10-01 09:13 | Outpatient (OUT) | payer OTHER, SELFPAY ==
--- NOTE | 2024-10-01 09:15 | US_ITS ---
[address] [address] Patient Name: TANNER RAMIREZ MRN: [id number] date: 2000 Sex: F Assigned Patient Location: US Current Patient Location: US Accession/Order Number: [id number] Exam Date: 10/01/2024 09:18 Report Date: 10/01/2024 10:02 At the request of: WILL CRESPO Procedure: US OB growth EXAMINATION: US OB growth HISTORY: Small For Gestational Age COMPARISON: No relevant comparison available. FINDINGS: Heart Rate: 135.68 bpm Amniotic Fluid Volume: 12.6 cm, largest fluid pocket 6.4 cm Number: 1 Position: Cephalic presentation, longitudinal lie BIOMETRY: BPD: 8.39 cm; 33 weeks 5 days; <3 % HC: 32.73 cm; 37 weeks 1 day; 20.50 % AC: 32.51 cm; 36 weeks 3 days; 36.40 % FL: 6.56 cm; 33 weeks 6 days; <3 % EFW: 2704.61 g; 14.80 % 5 lbs. 15 oz. FL/AC: 20.17 FL/BPD: 78.17 HC/AC: 1.01 GESTATIONAL AGE: Age by EDC: 37 weeks 3 days JOSE by EDC: 2024-10-19 Age by US: 35 weeks 2 days JOSE by US: 2024-11-03 US/US OB growth IMPRESSION: BPD and femur length less than the 3rd percentile, otherwise normal interval growth Electronically authenticated by: LEE CLAY Date: 10/01/2024 10:02
== END 2024-10-01 09:14 | disposition home or self-care (01) ==
LOC: US 09:13
PROVIDERS: Visit Provider Obstetrics & Gynecology
DX: O26.843 Uterine size-date discrepancy, third trimester (principal); Z3A.37 37 weeks gestation of pregnancy
CPT/HCPCS: 76816

== ENCOUNTER 2024-10-17 15:52 | Outpatient (OUT) | payer OTHER, SELFPAY ==
[2024-10-17 16:08] VITALS: BP 118/71; PULSE 131
--- OUTSIDE RECORDS SUMMARY | 2024-10-18 06:53 | XMS_ITS | CCD ---
Author Organization [facility] Care Team Providers Care Speech And Language Tutor Name Role Phone MAIRA BOUDREAUX Unavailable Unavailable TOBY, ROSE MARY Unavailable Unavailable TOBY, ROSE MARY Unavailable Unavailable SONDIKE, CONOR B Unavailable Unavailable SONDIKE, CONOR B Unavailable Unavailable TOBY, ROSE MARY Unavailable Unavailable HISSETT, JOON Unavailable Unavailable TOBY, ROSE MARY Unavailable Unavailable JOSE LUIS NORIEGA Unavailable Unavailable NOAH MCCALLUM Unavailable Unavailable NEILAN, MAIDA T Unavailable Unavailable TOBY, Rose Mary A Primary Care Physician Fatoumata Oneill Primary Care Physician [phone] MEHDI ., DR SOLIS Attending Unavailable MEHDI [...] Unavailable MEHDI ., DR SOLIS Consulting Unavailable EMHDI ., DR SOLIS Admitting Unavailable MINGMAREK Consulting Unavailable MEHDI ., DR SOLIS Procedure [...] Unavailable MEHDI ., DR SOLIS Attending Unavailable BUCHANAN DAM, DR LEE Arceo Consulting Unavailable MEHDI ., DR SOLIS Admitting Unavailable MEHDI ., DR SOLIS Consulting Unavailable MEHDI ., DR SOLIS Attending Unavailable MEHDI ., DR SOLIS Consulting Unavailable MEHDI ., DR SOLIS Admitting Unavailable ALINE Tomlinson Attending Provider Mel Tomlinson Unavailable Augusto Brewer Unavailable Jesusita Torrez MD Primary Care Provider No Pcp, No Pcp Primary Care Provider Unavailharish e NO PCP, NO PCP Primary Care Unavailable Nasir Harding Attending Unavailable Nasir Harding Admitting Unavailable NO PCP, NO PCP Primary Care Unavailable LEE LEA Referring Unavailable NO PCP, NO PCP Primary Care Unavailable NO PCP, NO PCP Primary Care Unavailable SLIME DALAL Attending Unavailable SLIME DALAL Referring Unavailable NO PCP, NO PCP Primary Care Unavailable NASIR HARDING Attending Unavailable RENATA MANLEY Attending Unavailable NASIR HARDING Attending Unavailable VIRGINIA ROYAL Attending Unavailab RENATA Noonan Attending Unavailable VIRGINIA ROYAL Attending Unavailab VIRGINIA Espinoza Referring Unavailab RENATA Noonan Attending Unavailable RENATA MANLEY Attending Unavailable NASIR HARDING Attending Unavailable NASIR HARDING Attending Unavailable LEE ZARATE Admitting Unavailable LEE ZARATE Attending Unavailable ELOISE MONTANO Referring Unavailable NO PCP, NO PCP Primary Care Unavailable TYLOR WAHL Consulting Unavailable JUNAID GUILLEN Consulting Unavailab YAMINI Harris Referring Unavailable NO PCP, NO PCP Primary Care Unavailable FUMO, LEE E Attending Unavailable NO PCP, NO PCP Primary Care Unavailable Medications Current Medications Medication Drug Class(es) Dates Sig (Normalized) Sig (Original) [id number] 200 actuat albuterol 0.09 mg/actuat metered dose inhaler (13 sources) beta2-Adrenergic Agonist Start: 08-26-2024 End: 08-26-2025 [...] Days Not-Taking aspirin 325 mg oral tablet (14 sources) Platelet Aggregation Inhibitor, Nonsteroidal Anti-inflammatory Drug [...] / neomycin 3.5 mg/ml / polymyxin b 87927 unt/ml otic suspension (4 sources) Aminoglycoside Antibacterial, Polymyxin-class Antibacterial, Corticosteroid Start: 07-17-2023 Eeduczyo-Jvkoevdjo-DN 3.5-70352-9 3 drops right ear Three times a day for 7 days 16 Oct, 2023 Active methylPREDNISolone (5 sources) Corticosteroid Start: 08-26-2024 [...] for 2 Days Not-Taking polyethylene glycol 3350 23005 mg powder for oral solution (5 sources) Osmotic Laxative Start: 09-27-2022 take 17 g by mouth once daily Miralax 3350 17 gram packet 17 gm, Oral, Daily, # 12 EA, Refills(s) 0, Pharmacy: [facility]/pharmacy #[id number], 157.5, cm, 09/27/22 22:57:00 EST, Height/Length [...] (20 sources) 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; 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] Onset: 06-12-2023 02-12-2019 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; 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] Onset: 09-30-2024 08-08-2024 Chronic Genitourinary symptoms and ill-defined conditions [...] second trimester] 07-03-2024 Episodic Other complications of (20 sources) Right lower quadrant pain; Translations: [Other [...] Chronic Other diseases of kidney and ureters (12 sources) Hydronephrosis; Translations: [Other hydronephrosis] Onset: 09-19-2024 [...] Translations: [DIARRHEA UNSPECIFIED] Onset: 12-27-2022 Episodic Other infections; including parasitic (2 sources) [...] unspecified] Onset: 08-04-2024 Episodic Residual codes; unclassified (12 sources) Gestation period, 35 weeks; Translations: [35 weeks gestation of ] Onset: 09-19-2024 09-19-2024 Episodic Residual codes; unclassified (9 sources) Gestation period, 36 weeks; Translations: [36 weeks gestation of ] Onset: 09-26-2024 09-26-2024 Episodic Residual codes; unclassified (2 sources) Gestation period, 38 weeks; Translations: [38 weeks gestation of ] 10-10-2024 Episodic Short gestation; low weight; and growth retardation (14 sources) Maiap-zfr-hgyxm baby; Translations: [ small for gestational age, unspecified weight] Onset: 09-19-2024 09-19-2024 Episodic Skin and subcutaneous tissue infections (1 source) Local infection of the skin and subcutaneous tissue, unspecified Episodic Unclassified (2 sources) Decreased body mass index 07-06-2020 Unclassified (3 sources) CONTACT W/AND (SUSP) EXPOS COVID-19; Translations: [CONTACT W/AND (SUSP) EXPOS COVID-19] Onset: 03-03-2022 Unclassified (20 sources) OB Reminders Onset: 05-14-2024 05-14-2024 Unclassified (1 source) Problem Onset: 03-11-2024 Unclassified (1 source) Urinary Problem- Posible Preganacy Onset: 03-11-2024 Unclassified (1 source) New Patient Onset: 10-11-2024 Viral infection (1 source) COVID-19; Translations: [COVID-19] Onset: 03-03-2022 Past or Other Problems Problem Classification Problem Date Documented Da te Episodic/Chronic Acute and chronic tonsillitis (20 sources) [...] applicable or unspecified; Translations: [MAT CARE OTH WI FTL GRTH 3RD TM UNS] Onset: 08-08-2022 [...] PREG UNS TRI] Onset: 05-19-2022 Episodic Other gastrointestinal disorders (1 source) Other fecal abnormalities; Translations: [Other fecal abnormalities] Onset: 03-11-2024 Episodic Other nutritional; endocrine; and metabolic disorders [...] Test Name Value Interpretation Reference Range Facility POCT Urinalysis Auto, W/O Mi croscopyon 10-11-2024 External Poct Urine Bilirubin Negative [facility] External Poct Urine Blood Negative [facility] External Poct Urine Glucose Negative [facility] External Poct Urine Ketones Negative [facility] External Poct Urine Leukocyte Esterase Trace [facility] External Poct Urine Nitrite Negative [facility] External Poct Urine Ph 6.5 [facility] External Poct Urine Protein Negative [facility] External Poct Urine Specific [place] 1.02 [facility] External Poct Urine Urobilinogen 0.2 [facility] Urinalysis macro (dipstick) panel (U)on 10-10-2024 Bilirubin, UA Negative Negative - 4(70) +++ mg/dL [facility] Blood, UA Negative Negative - 50 Jd/mcL [facility] Clarity, UA Clear [facility] re Color, UA Yellow [facility] e Glucose, UA Negative Negative - 1999(110) ++++ mg/dL [facility] Interpretation and review of laboratory results Normal [facility] Ketones, UA Negative Negative - 160(16) ++++ mg/dL [facility] Leukocytes, UA Negative Negative - 500+++ Mookie/mcL [facility] Nitrite, UA Negative Negative - Positive [facility] pH, UA 6.5 5 - 9 [facility] Protein, UA Negative Negative - 1999(20) ++++ mg/dL [facility] Spec Grav, UA 1.015 1 - 1.03 [facility] Urobilinogen, UA 0.2 0.2 - 12 mg/dL [facility] ALL CBC WITH AUTO DIFFon BASOPHILS ABSOLUTE AUTO [address] [facility] Basophils/100 WBC (Bld) 0.2 % 0.2 - 2.0 % [facility] Eosinophils/100 WBC (Bld) 0.9 % 0.9 - 7.0 % [facility] Erythrocyte distribution width (RBC) [Ratio] 13.1 % 11.0 - 15.0 % [facility] Hematocrit (Bld) [Volume fraction] 32.7 % Low 36.0 - 48.0 % [facility] Hemoglobin (Bld) [Mass/Vol] 10.8 g/dL Low 12.0 - 16.0 g/dL [facility] IMMATURE GRANULOCYTES ABS AUTO 0.[address] [facility] Immature granulocytes/100 WBC (Bld) 1.8 % High 0.0 - 0.5 % [facility] Interpretation and review of laboratory results Abnormal [facility] LYMPHOCYTES ABSOLUTE AUTO 1.7 [facility] Lymphocytes/100 WBC (Bld) 17.3 % Low 20.5 - 60.0 % [facility] MCH (RBC) [Entitic mass] 27.1 pg 26.7 - 34.[address] [facility] MCHC (RBC) [Mass/Vol] 33 g/dL 29.9 - 35.2 g/dL [facility] MCV (RBC) [Entitic vol] 82 fL 81.0 - 99.[address] [facility] MONOCYTES ABSOLUTE AUTO 0.8 [facility] Monocytes/100 WBC (Bld) 8.2 % 1.7 - 12.0 % [facility] NEUTROPHILS ABSOLUTE AUTO [address] [facility] Neutrophils/100 WBC (Bld) 71.6 % 43.0 - 75.0 % [facility] Platelet mean volume (Bld) [Entitic vol] 9.5 fL 9.5 - 13.5 fL [facility] Healthc are TBH EO # 0.1 [facility] TBH PLT 182 [facility] TB RBC 3.99 Low [facility] TB WBC 9.7 [facility] e BOX TESTon 09-30-2024 BOX TEST RESULT SEE SCANNED REPORT N [facility] BOX TEST SENT OUT GROUP B [facility] althcare [address] [facility] e BOX2 09/26/24 [facility] GROUP B STREP [facility] US RETROPERITONEAL COMPLETEo n 09-30-2024 US RETROPERITONEAL COMPLETE US RETROPERITONEAL COMPLETE US RETROPERITONEAL COMPLETE HISTORY: Hydronephrosis COMPARISON: MR abdomen 08/04/[address] abdomen and pelvis 08/03/2024 TECHNIQUE: Grayscale and color Doppler sonographic images of the urinary bladder and bilateral kidneys. FINDINGS: Right kidney: * 11.9 cm * Cortex: Cortical thickness preserved with normal echogenicity. * Mild to moderate hydronephrosis with renal pelvis measuring 1.6 cm. No renal calculus identified. Left kidney: * 11.6 cm * Cortex: Cortical thickness preserved with normal echogenicity. * No hydronephrosis or calculi. The urinary bladder is within normal limits. Left ureteral jet visualized. Right ureteral jet not visualized. IMPRESSION: * Mild to moderate right-sided hydronephrosis without renal or ureteral calculus identified. * Unremarkable ultrasound of the left kidney. Approved by Res Curly Rutledge MD on 09/30/2024 1:35 PM I, Augusto Salazar MD have personally reviewed the image(s) and agree with and/or edited the report Finalized by Augusto Salazar MD on 09/30/2024 1:44 PM Normal [facility] Strep B Culture (PCN Allergi c)on 09-26-2024 Strep B Culture (PCN Allergic) No Group B Beta Streptococcus Isolated 3 Days PERFORMED BY: [place] [address] PATHOLOGIST SKIVER BOX TOE BRANNON LING M.D. Normal [facility] Comment on above: Performed By: #### C USTB(PCN) #### [address] Urinalysis macro (dipstick) panel (U)on 09-26-2024 Bilirubin, UA Negative Negative - 4(70) +++ mg/dL [facility] Blood, UA Negative Negative - 50 Jd/mcL [facility] Clarity, UA Clear [facility] re Color, UA Yellow [facility] Glucose, UA Negative Negative - 1999(110) ++++ mg/dL [facility] Interpretation and review of laboratory results Abnormal [facility] Ketones, UA Negative Negative - 160(16) ++++ mg/dL [facility] Leukocytes, UA Few Negative - 500+++ Mookie/mcL [facility] Comment on above: small Nitrite, UA Negative Negative - Positive [facility] pH, UA 6.5 5 - 9 [facility] Protein, UA Negative Negative - 1999(20) ++++ mg/dL [facility] Spec Grav, UA 1.015 1 - 1.03 [facility] Urobilinogen, UA 0.2 0.2 - 12 mg/dL [facility] Urinalysis macro (dipstick) panel (U)on 09-19-2024 Bilirubin, UA Negative Negative - 4(70) +++ mg/dL [facility] Blood, UA Negative Negative - 50 Jd/mcL [facility] Clarity, UA Clear [facility] Color, UA Yellow [facility] Glucose, UA Negative Negative - 1999(110) ++++ mg/dL [facility] Interpretation and review of laboratory results Abnormal [facility] Ketones, UA Negative Negative - 160(16) ++++ mg/dL [facility] Leukocytes, UA Positive Negative - 500+++ Mookie/mcL [facility] Comment on above: small Nitrite, UA Negative Negative - Positive [facility] pH, UA 6.5 5 - 9 [facility] Protein, UA Negative Negative - 1999(20) ++++ mg/dL [facility] Spec Grav, UA 1.025 1 - 1.03 [facility] Urobilinogen, UA 0.2 0.2 - 12 mg/dL [facility] Urinalysis macro (dipstick) panel (U)on 08-26-2024 Bilirubin, UA Negative Negative - 4(70) +++ mg/dL [facility] Healthcare Blood, UA Negative Negative - 50 Jd/mcL [facility] Clarity, UA Clear [facility] Color, UA Yellow [facility] Glucose, UA Negative Negative - 1999(110) ++++ mg/dL [facility] Healthcare Interpretation and review of laboratory results Normal [facility] Ketones, UA Negative Negative - 160(16) ++++ mg/dL [facility] Leukocytes, UA Negative Negative - 500+++ Mookie/mcL [facility] Nitrite, UA Negative Negative - Positive [facility] pH, UA 7 5 - 9 [facility] Protein, UA Negative Negative - 1999(20) ++++ mg/dL [facility] Spec Grav, UA 1.02 1 - 1.03 [facility] Urobilinogen, UA 0.2 0.2 - 12 mg/dL [facility] VASC US UPPER EXTREMITY VENO US DUPLEX LEFTon 08-20-2024 VASC US UPPER EXTREMITY VENOUS DUPLEX LEFT Exam: [...] UA Negative Negative - 4(70) +++ mg/dL [facility] Blood, UA Negative Negative - 50 Jd/mcL [facility] Clarity, UA Clear [facility] re Color, UA Yellow [facility] Glucose, UA Negative Negative - 1999(110) ++++ mg/dL [facility] Interpretation and review of laboratory results Abnormal [facility] Ketones, UA Negative Negative - 160(16) ++++ mg/dL [facility] Leukocytes, UA Trace Negative - 500+++ Mookie/mcL [facility] Nitrite, UA Negative Negative - Positive [facility] pH, UA 7 5 - 9 [facility] e Protein, UA Negative Negative - 1999(20) ++++ mg/dL [facility] Spec Grav, UA 1.02 1 - 1.03 [facility] Urobilinogen, UA 0.2 0.2 - 12 [facility]dL [facility] BASIC METABOLIC PANLon 08-05 Anion gap [Moles/Vol] 6 mmol/L Normal 5-15 [facility] Comment on above: Performed By: #### 4 7236-5, CBCA, 2132-9, 2276-4, 2284-8, CMP #### [facility] ([id number]) [address], [address] [place] [address] Calcium [Mass/Vol] 8.6 mg/dL Normal 8.5-10.5 [facility] Comment on above: Performed By: #### 4 7236-5, CBCA, 2131-9, 6-4, 2284-8, CMP #### [facility] ([id number]) [address], [address] [place] [address] Chloride [Moles/Vol] 108 mmol/L Normal 98-109 [facility] Comment on above: Performed By: #### 4 7236-5, CBCA, 2132-06, 6-4, 2284-8, CMP #### [facility] ([id number]) [address], [address] [place] [address] CO2 [Moles/Vol] 24 mmol/L Normal 22-32 [facility] Comment on above: Performed By: #### 4 7236-5, CBCA, 9, 6-4, 2284-8, CMP #### [facility] ([id number]) [address], [address] [place] [address] Creatinine [Mass/Vol] 0.52 mg/dL Normal 0.40-1.00 [facility] Comment on above: Result Comment: METH OD TRACEABLE TO IDMS STANDARD Performed By: #### 4 7236-5, CBCA, 9, 6-4, 2284-8, CMP #### [facility] ([id number]) [address], [address] [place] [address] eGFR (CKD-EPI) NON-RACE DEPENDENT >90 Normal >59 [facility] Comment on above: Result Comment: Reported eGFR is based on the CKD-EPI 2020 equation that does not use a race coefficient. Performed By: #### 4 7236-5, CBCA, 2131-9, 6-4, 2284-8, CMP #### [facility] ([id number]) [address], [address] [place] [address] Glucose [Mass/Vol] 81 mg/dL Normal 65-99 [facility] Comment on above: Performed By: #### 4 7236-5, CBCA, 2131-9, 2276-4, 2284-8, CMP #### [facility] ([id number]) [address], [address] [place] [address] Potassium [Moles/Vol] 3.8 mmol/L Normal 3.5-5.0 [facility] Comment on above: Performed By: #### 4 7236-5, CBCA, 2131-9, 6-4, 2284-8, CMP #### [facility] ([id number]) [address], [address] [place] [address] Sodium [Moles/Vol] 138 mmol/L Normal 134-146 [facility] Comment on above: Performed By: #### 4 7236-5, CBCA, 2131-9, 2275-4, 228-8, CMP #### [facility] ([id number]) [address], [address] [place] [address] Urea nitrogen [Mass/Vol] 9 mg/dL Normal 5-23 [facility] Comment on above: Performed By: #### 4 7236-5, CBCA, 2131-9, 6-4, 2284-8, CMP #### [facility] ([id number]) [address], [address] [place] [address] CBC AND AUTO DIFFon 08-05-20 24 ABSOLUTE BASOPHIL 0.0 X10E9/L Normal 0.0-0.2 [facility] Comment on above: Performed By: #### 4 7236-5, CBCA, 2131-9, 6-4, 2284-8, CMP #### [facility] ([id number]) [address], [address] [place] [address] ABSOLUTE NEUTROPHIL 5.0 X10E9/L Normal 1.5-6.6 [facility] Comment on above: Performed By: #### 4 7236-5, CBCA, 2131-9, 6-4, 2284-8, CMP #### [facility] ([id number]) [address], [address] [place] [address] Basophils/100 WBC (Bld) 0.2 % Normal [facility] Comment on above: Performed By: #### 4 7236-5, CBCA, 9, 6-4, 4-8, CMP #### [facility] ([id number]) [address], [facility] [address] [place] [address] Eosinophils (Bld) [#/Vol] 0.1 10*3/uL Normal 0.0-0.4 [facility] Comment on above: Performed By: #### 4 7236-5, CBCA, 2132-06, 2275-4, 2283-8, CMP #### [facility] ([id number]) [address], [address] [place] [address] Eosinophils/100 WBC (Bld) 1.1 % Normal [facility] Comment on above: Performed By: #### 4 7236-5, CBCA, 2132-06, 2275-4, 2283-8, CMP #### [facility] ([id number]) [address], [facility] [address] [place] [address] Erythrocyte distribution width (RBC) [Ratio] 13.4 % Normal 11.5-15.0 [facility] Comment on above: Performed By: #### 4 7236-5, CBCA, 2131-9, 6-4, 2284-8, CMP #### [facility] ([id number]) [address], [address] [place] [address] Hematocrit (Bld) [Volume fraction] 29.5 % Low 35-47 [facility] Comment on above: Performed By: #### 4 7236-5, CBCA, 9, 6-4, 2284-8, CMP #### [facility] ([id number]) [address], [address] [place] [address] Hemoglobin (Bld) [Mass/Vol] 10.4 g/dL Low 11.7-15.5 [facility] Comment on above: Performed By: #### 4 7236-5, CBCA, 2132-06, 6-4, 2284-8, CMP #### [facility] ([id number]) [address], [address] [place] [address] Lymphocytes (Bld) [#/Vol] 1.3 10*3/uL Normal 1.0-3.5 [facility] Comment on above: Performed By: #### 4 7236-5, CBCA, 2132-06, 6-4, 4-8, CMP #### [facility] ([id number]) [address], [address] [place] [address] Lymphocytes/100 WBC (Bld) 17.0 % Normal [facility] Comment on above: Performed By: #### 4 7236-5, CBCA, 2132-06, 2275-4, 2283-8, CMP #### [facility] ([id number]) [address], [address] [place] [address] MCH (RBC) [Entitic mass] 30.7 pg Normal 27-34 [facility] Comment on above: Performed By: #### 4 7236-5, CBCA, 2131-, 6-4, 4-8, CMP #### [facility] ([id number]) [address], [address] [place] [address] MCHC (RBC) [Mass/Vol] 35.3 g/dL Normal 32-36 [facility] Comment on above: Performed By: #### 4 7236-5, CBCA, 2132-06, 6-4, 2284-8, CMP #### [facility] ([id number]) [address], [address] [place] [address] MCV (RBC) [Entitic vol] 87 fL Normal 80-100 [facility] Comment on above: Performed By: #### 4 7236-5, CBCA, 2131-9, 2276-4, 2284-8, CMP #### [facility] ([id number]) [address], [address] [place] [address] Monocytes (Bld) [#/Vol] 1.0 10*3/uL High 0-0.9 [facility] Comment on above: Performed By: #### 4 7236-5, CBCA, 2131-9, 2276-4, 2284-8, CMP #### [facility] ([id number]) [address], [address] [place] [address] Monocytes/100 WBC (Bld) 13.9 % Normal [facility] Comment on above: Performed By: #### 4 7236-5, CBCA, 2131-9, 2276-4, 2284-8, CMP #### [facility] ([id number]) [address], [address] [place] [address] Neutrophils/100 WBC (Bld) 67.8 % Normal [facility] Comment on above: Performed By: #### 4 7236-5, CBCA, 2131-9, 2276-4, 2284-8, CMP #### [facility] ([id number]) [address], [address] [place] [address] Platelet mean volume (Bld) [Entitic vol] 7.7 fL Normal 7-12 [facility] Comment on above: Performed By: #### 4 7236-5, CBCA, 2131-9, 2276-4, 2284-8, CMP #### [facility] ([id number]) [address], [address] [place] [address] Platelets (Bld) [#/Vol] 179 10*3/uL Normal 150-450 [facility] Comment on above: Performed By: #### 4 7236-5, CBCA, 2131-9, 6-4, 2284-8, CMP #### [facility] ([id number]) [address], [address] [place] [address] RBC COUNT 3.39 X10E12/L Low 3.80-5.20 [facility] Comment on above: Performed By: #### 4 7236-5, CBCA, 9, 6-4, 2284-8, CMP #### [facility] ([id number]) [address], [address] [address] WBC (Bld) [#/Vol] 7.4 10*3/uL Normal 4.0-11.0 [facility] Comment on above: Performed By: #### 4 7236-5, CBCA, 2132-06, 6-4, 2284-8, CMP #### [facility] ([id number]) [address], [address] [place] [address] CBC AND AUTO DIFFon 08-04-20 24 ABSOLUTE BASOPHIL 0.0 X10E9/L Normal 0.0-0.2 [facility] Comment on above: Performed By: #### 4 7236-5, CBCA, 2132-06, 2275-4, 2284-8, CMP #### [facility] ([id number]) [address], [address] [place] [address] ABSOLUTE NEUTROPHIL 8.1 X10E9/L High 1.5-6.6 [facility] Comment on above: Performed By: #### 4 7236-5, CBCA, 2132-06, 6-4, 2284-8, CMP #### [facility] ([id number]) [address], [address] [place] [address] Basophils/100 WBC (Bld) 0.2 % Normal [facility] Comment on above: Performed By: #### 4 7236-5, CBCA, 2131-9, 6-4, 2284-8, CMP #### [facility] ([id number]) [address], [address] [place] [address] Eosinophils (Bld) [#/Vol] 0.0 10*3/uL Normal 0.0-0.4 [facility] Comment on above: Performed By: #### 4 7236-5, CBCA, 2131-9, 6-4, 2284-8, CMP #### [facility] ([id number]) [address], [address] [place] [address] Eosinophils/100 WBC (Bld) 0.2 % Normal [facility] Comment on above: Performed By: #### 4 7236-5, CBCA, 2132-06, 2275-4, 2283-8, CMP #### [facility] ([id number]) [address], [address] [place] [address] Erythrocyte distribution width (RBC) [Ratio] 13.3 % Normal 11.5-15.0 [facility] Comment on above: Performed By: #### 4 7236-5, CBCA, 2131-9, 6-4, 2284-8, CMP #### [facility] ([id number]) [address], [address] [place] [address] Hematocrit (Bld) [Volume fraction] 29.5 % Low 35-47 [facility] Comment on above: Performed By: #### 4 7236-5, CBCA, 2132-06, 2275-, 228-8, CMP #### [facility] ([id number]) [address], [address] [place] [address] Hemoglobin (Bld) [Mass/Vol] 10.4 g/dL Low 11.7-15.5 [facility] Comment on above: Performed By: #### 4 7236-5, CBCA, 9, 6-4, 228-8, CMP #### [facility] ([id number]) [address], [address] [place] [address] Lymphocytes (Bld) [#/Vol] 1.2 10*3/uL Normal 1.0-3.5 [facility] Comment on above: Performed By: #### 4 7236-5, CBCA, 2132-06, 2275-4, 2283-8, CMP #### [facility] ([id number]) [address], [address] [place] [address] Lymphocytes/100 WBC (Bld) 11.7 % Normal [facility] Comment on above: Performed By: #### 4 7236-5, CBCA, 2132-06, 2275-4, 2283-, CMP #### [facility] ([id number]) [address], [address] [place] [address] MCH (RBC) [Entitic mass] 30.5 pg Normal 27-34 [facility] Comment on above: Performed By: #### 4 7236-5, CBCA, 2132-06, 2275-4, 2283-, CMP #### [facility] ([id number]) [address], [address] [place] [address] MCHC (RBC) [Mass/Vol] 35.4 g/dL Normal 32-36 [facility] Comment on above: Performed By: #### 4 7236-5, CBCA, 2132-06, 2275-4, 2283-, CMP #### [facility] ([id number]) [address], [address] [place] [address] MCV (RBC) [Entitic vol] 86 fL Normal 80-100 [facility] Comment on above: Performed By: #### 4 7236-5, CBCA, 2132-06, 2276-4, 2284-8, CMP #### [facility] ([id number]) [address], [address] [place] [address] Monocytes (Bld) [#/Vol] 1.0 10*3/uL High 0-0.9 [facility] Comment on above: Performed By: #### 4 7236-5, CBCA, 9, 6-4, 2284-8, CMP #### [facility] ([id number]) [address], [address] [place] [address] Monocytes/100 WBC (Bld) 9.2 % Normal [facility] Comment on above: Performed By: #### 4 7236-5, CBCA, 2132-06, 6-4, 2284-8, CMP #### [facility] ([id number]) [address], [address] [place] [address] Neutrophils/100 WBC (Bld) 78.7 % Normal [facility] Comment on above: Performed By: #### 4 7236-5, CBCA, 2132-06, 2275-4, 2284-8, CMP #### [facility] ([id number]) [address], [address] [place] [address] Platelet mean volume (Bld) [Entitic vol] 7.9 fL Normal 7-12 [facility] Comment on above: Performed By: #### 4 7236-5, CBCA, 9, 6-4, 2284-8, CMP #### [facility] ([id number]) [address], [address] [place] [address] Platelets (Bld) [#/Vol] 181 10*3/uL Normal 150-450 [facility] Comment on above: Performed By: #### 4 7236-5, CBCA, 2131-9, 6-4, 2284-8, CMP #### [facility] ([id number]) [address], [address] [place] [address] RBC COUNT 3.41 X10E12/L Low 3.80-5.20 [facility] Comment on above: Performed By: #### 4 7236-5, CBCA, 2-9, 2276-4, 2284-8, CMP #### [facility] ([id number]) [address], [address] [place] [address] WBC (Bld) [#/Vol] 10.3 10*3/uL Normal 4.0-11.0 [facility] Comment on above: Performed By: #### 4 7236-5, CBCA, 2131-9, 2276-4, 2284-8, CMP #### [facility] ([id number]) [address], [address] [place] [address] COMPREHENSIVE METABOLIC PANE [facility] 08-04-2024 Albumin [Mass/Vol] 3.3 g/dL Normal 3.2-5.3 [facility] Comment on above: Performed By: #### 4 7236-5, CBCA, 2131-9, 2276-4, 2284-8, CMP #### [facility] ([id number]) [address], [address] [place] [address] ALP [Catalytic activity/Vol] 88 U/L Normal 39-130 [facility] Comment on above: Performed By: #### 4 7236-5, CBCA, 2131-9, 2276-4, 2284-8, CMP #### [facility] ([id number]) [address], [address] [place] [address] ALT [Catalytic activity/Vol] 9 U/L Normal 0-31 [facility] Comment on above: Performed By: #### 4 7236-5, CBCA, 2-9, 2276-4, 2284-8, CMP #### [facility] ([id number]) [address], [address] [place] [address] Anion gap [Moles/Vol] 10 mmol/L Normal 5-15 [facility] Comment on above: Performed By: #### 4 7236-5, CBCA, 2131-9, 2276-4, 2284-8, CMP #### [facility] ([id number]) [address], [address] [place] [address] AST [Catalytic activity/Vol] 17 U/L Normal 0-41 [facility] Comment on above: Performed By: #### 4 7236-5, CBCA, 2132-06, 6-4, 2284-8, CMP #### [facility] ([id number]) [address], [address] [place] [address] Bilirubin [Mass/Vol] 0.5 mg/dL Normal 0.3-1.2 [facility] Comment on above: Performed By: #### 4 7236-5, CBCA, 2132-06, 2275-4, 2284-8, CMP #### [facility] ([id number]) [address], [address] [place] [address] Calcium [Mass/Vol] 8.4 mg/dL Low 8.5-10.5 [facility] Comment on above: Performed By: #### 4 7236-5, CBCA, 2132-06, 2275-4, 2284-8, CMP #### [facility] ([id number]) [address], [address] [place] [address] Chloride [Moles/Vol] 106 mmol/L Normal 98-109 [facility] Comment on above: Performed By: #### 4 7236-5, CBCA, 2132-06, 2275-, 2284-8, CMP #### [facility] ([id number]) [address], [address] [place] [address] CO2 [Moles/Vol] 20 mmol/L Low 22-32 [facility] Comment on above: Performed By: #### 4 7236-5, CBCA, 2131-9, 2276-4, 2284-8, CMP #### [facility] ([id number]) [address], [facility] [address] [place] [address] Creatinine [Mass/Vol] 0.54 mg/dL Normal 0.40-1.00 [facility] Comment on above: Result Comment: METH OD TRACEABLE TO IDMS STANDARD Performed By: #### 4 7236-5, CBCA, 2131-9, 2276-4, 2284-8, CMP #### [facility] ([id number]) [address], [address] [address] eGFR (CKD-EPI) NON-RACE DEPENDENT >90 Normal >59 [facility] Comment on above: Result Comment: Reported eGFR is based on the CKD-EPI 2020 equation that does not use a race coefficient. Performed By: #### 4 7236-5, CBCA, 2131-9, 6-4, 2284-8, CMP #### [facility] ([id number]) [address], [facility] [address] [place] [address] Glucose [Mass/Vol] 83 mg/dL Normal 65-99 [facility] Comment on above: Performed By: #### 4 7236-5, CBCA, 2131-9, 6-4, 2284-8, CMP #### [facility] ([id number]) [address] [address] [place] [address] Potassium [Moles/Vol] 3.5 mmol/L Normal 3.5-5.0 [facility] Comment on above: Performed By: #### 4 7236-5, CBCA, 2131-9, 2276-4, 2284-8, CMP #### [facility] ([id number]) [address], [facility] [address] [place] [address] Protein [Mass/Vol] 6.1 g/dL Normal 6.0-8.0 [facility] Comment on above: Performed By: #### 4 7236-5, CBCA, 2132-06, 2276-4, 2284-8, CMP #### [facility] ([id number]) [address], [address] [place] [address] Sodium [Moles/Vol] 136 mmol/L Normal 134-146 [facility] Comment on above: Performed By: #### 4 7236-5, CBCA, 2132-06, 6-4, 2284-8, CMP #### [facility] ([id number]) [address], [address] [address] Urea nitrogen [Mass/Vol] 7 mg/dL Normal 5-23 [facility] Comment on above: Performed By: #### 4 7236-5, CBCA, 2132-06, 6-4, 2284-8, CMP #### [facility] ([id number]) [address], [address] [place] [address] DRUG SCREEN, URINEon 024 AMPHETAMINE/METHAMP Negative Normal NEG [facility] Comment on above: Result Comment: AMPH /METH screening cut off = 1000 ng/mL Performed By: #### D YOUSSEF #### [facility] ([id number]) [address], [address] [place] [address] BARBITURATES Negative Normal NEG [facility] Comment on above: Result Comment: Erica iturates screening cut off value = 200 ng/mL Performed By: #### D YOUSSEF #### [facility] ([id number]) [address] [address] BENZODIAZEPINES Negative Normal NEG [facility] Comment on above: Result Comment: Jorge odiazepines screening cut off value = 200 ng/mL Performed By: #### D YOUSSEF #### [facility] ([id number]) [address] [place] [address] CANNABINOIDS Negative Normal NEG [facility] Comment on above: Result Comment: Radha abinoids/THC screening cut off value = 50 ng/mL Performed By: #### D YOUSSEF #### [facility] ([id number]) [address], [address] [place] [address] COCAINE METABOLITE Negative Normal NEG [facility] Comment on above: Result Comment: Coca ine screening cut off value = 300 ng/mL Performed By: #### D YOUSSEF #### [facility] ([id number]) [address], [address] [place] [address] ECSTASY Negative Normal NEG [facility] Comment on above: Result Comment: Ecst asy screening cut off value = 500 ng/mL This report is intended for use in clinical monitoring or management of patients. Performed By: #### D YOUSSEF #### [facility] ([id number]) [address], [address] [place] [address] METHADONE Negative Normal [facility] Comment on above: Result Comment: Meth adone screening cut off value = 300 ng/mL. Performed By: #### D YOUSSEF #### [facility] ([id number]) [address], [address] [place] [address] OPIATES Negative Normal NEG [facility] Comment on above: Result Comment: Opia torrey screening cut off value = 300 ng/mL NOTE: This test is used for the detection of codeine, hydrocodone (>1000 ng/mL), morphine and hydromorphone (>900 ng/mL) in urine. Performed By: #### D YOUSSEF #### [facility] ([id number]) [address], [address] [place] [address] OXYCODONE Negative Normal NEG [facility] Comment on above: Result Comment: Oxyc odone screening cut off value = 300 ng/mL NOTE: This test is used for the detection of oxycodone and oxymorphone in urine. Performed By: #### D YOUSSEF #### [facility] ([id number]) [address], [address] [place] [address] PHENCYCLIDINE Negative Normal NEG [facility] Comment on above: Result Comment: Phen cyclidine screening cut off value = 25 ng/mL Performed By: #### D YOUSSEF #### [facility] ([id number]) [address], [address] [place] [address] FERRITINon 08-04-2024 Ferritin [Mass/Vol] 15 ng/mL Normal 11-307 [facility] Comment on above: Performed By: #### 4 7236-5, CBCA, 2-9, 2276-4, 2284-8, CMP #### [facility] ([id number]) [address], [address] [place] [address] Folate [Mass/Vol]on 08-04-20 24 FOLIC ACID 16.4 ng/mL Normal >5.8 [facility] Comment on above: Result Comment: NEW REFERENCE RANGE Performed By: #### 4 7236-5, CBCA, 2-9, 2276-4, 2284-8, CMP #### [facility] ([id number]) [address], [address] [place] [address] Glucose Glucometer (BldC) [M ass/Vol]on 08-04-2024 Glucose [Mass/Vol] 82 mg/dL Normal 65-99 [facility] MR ABDOMEN WO CONTon 024 MR [...] 10:11 AM. This will be documented in [email or web address] results tracking once complete. Finalized by Douglasyamilet Olivierh on 08/04/2024 10:12 AM [facility] MR PELVIS WO CONTon 08-04-20 24 [...] 10:11 AM. This will be documented in [email or web address] results tracking once complete. Finalized by Douglasyamilet lOivierh on 08/04/2024 10:12 AM [facility] PROTIME AND INRon 08-04-2024 INR Coag (PPP) [Relative time] 1.0 {INR} Normal 0.8-1.1 [facility] Comment on above: Performed By: #### 4 7236-5, CBCA, 9, 6-4, 4-8, CMP #### [facility] ([id number]) [address] [facility], [address] [place] [address] PT Coag (PPP) [Time] 11.8 s Normal 9.8-13.2 [facility] Comment on above: Performed By: #### 4 7236-5, CBCA, 2132-06, 2275-, 2283-8, CMP #### [facility] ([id number]) [address] [facility], [address] [place] [address] STREP B SCREEN CULTUREon S. agalactiae Org specific cx Ql (Vag+Rectum) CULTURE RESULTS NEGATIVE FOR GROUP B STREPTOCOCCUS BY NUCLEIC ACID AMPLIFICATION Normal [facility] Comment on above: Performed By: #### 4 7236-5, CBCA, 2132-06, 2276-01, 2283-8, CMP #### [facility] ([id number]) [address] [facility], [address] [address] T. pallidum IgG+IgM IA Ql (S )on 08-04-2024 Syphilis Total <0.2 Normal 0.0-0.8 [facility] Comment on above: Result Comment: NON REACTIVE No serologic evidence of infection to Treponema pallidum (syphilis). Repeat testing may be considered in patients with suspected acute or primary syphilis in 2 to 4 weeks. Performed By: #### 4 7236-5, CBCA, 2132-06, 2276-01, 8, CMP #### [facility] ([id number]) [address] [facility], [address] [place] [address] URINALYSISon 08-04-2024 Bilirubin Ql (U) Negative Normal NEG [facility] Comment on above: Performed By: #### U A #### [facility] ([id number]) [address], [address] [place] [address] BLOOD/HGB Negative Normal NEG [facility] Comment on above: Performed By: #### U A #### [facility] ([id number]) [address], [address] [place] [address] Color (U) YELLOW Normal YELLOW [facility] Comment on above: Performed By: #### U A #### [facility] ([id number]) [address], [address] [place] [address] Glucose Ql (U) Negative Normal NEG [facility] Comment on above: Performed By: #### U A #### [facility] ([id number]) [address], [address] [place] [address] Ketones Ql (U) 20 mg/dL Abnormal NEG [facility] Comment on above: Performed By: #### U A #### [facility] ([id number]) [address], [address] [place] [address] Leukocyte esterase Test strip Ql (U) Small Abnormal NEG [facility] Comment on above: Performed By: #### U A #### [facility] ([id number]) [address], [address] [place] [address] MUCOUS PRESENT Abnormal NONE [facility] Comment on above: Performed By: #### U A #### [facility] ([id number]) [address], [address] [place] [address] Nitrite Ql (U) Negative Normal NEG [facility] Comment on above: Performed By: #### U A #### [facility] ([id number]) [address], [address] [place] [address] pH (U) 6.5 [pH] Normal 5.0-8.5 [facility] Comment on above: Performed By: #### U A #### [facility] ([id number]) [facility] [facility], [address] [place] [address] Protein Ql (U) Trace Abnormal NEG [facility] Comment on above: Performed By: #### U A #### [facility] ([id number]) [address] [facility], [address] [place] [address] R.B.CELLS 1 /hpf Normal 0-5 [facility] Comment on above: Performed By: #### U A #### [facility] ([id number]) [address] [place] [address], [facility] [address] [place] [address] Specific gravity (U) [Rel density] 1.016 Normal 1.003-1.035 [facility] Comment on above: Performed By: #### U A #### [facility] ([id number]) [address] [place] [address], [address] [place] [address] SQUAMOUS EPITHELIUM 3 /hpf Normal 0-5 [facility] Comment on above: Performed By: #### U A #### [facility] ([id number]) [address] [facility], [address] [place] [address] TURBIDITY CLEAR Normal CLEAR [facility] Comment on above: Performed By: #### U A #### [facility] ([id number]) [address] [facility], [address] [place] [address] Urobilinogen (U) [Mass/Vol] mg/dL Normal <1.1 [facility] Comment on above: Performed By: #### U A #### [facility] ([id number]) [address] [place] [address], [address] [place] [address] W.B.CELLS 2 /hpf Normal 0-5 [facility] Comment on above: Performed By: #### U A #### [facility] ([id number]) [address], [address] [place] [address] URINE CULTUREon 08-04-2024 Bacteria identified Cx Nom (U) CULTURE RESULTS NO GROWTH AT <1000 CFU/mL Normal [facility] Comment on above: Performed By: #### 4 7236-5, CBCA, 2131-9, 2276-4, 2284-8, CMP #### [facility] ([id number]) [address], [address] [place] [address] VITAMIN B12on 08-04-2024 Cobalamin (Vitamin B12) [Mass/Vol] 138 pg/mL Low 180-914 [facility] Comment on above: Performed By: #### 4 7236-5, CBCA, 2132-06, 6-4, 2284-8, CMP #### [facility] ([id number]) [address], [address] [place] [address] Urinalysis macro (dipstick) panel (U)on 07-29-2024 Bilirubin, UA Negative Negative - 4(70) +++ mg/dL [facility] Blood, UA Negative Negative - 50 Jd/mcL [facility] Clarity, UA Clear [facility] Healthla re Color, UA Yellow [facility] Healthcar e Glucose, UA Negative Negative - 1999(110) ++++ mg/dL [facility] Interpretation and review of laboratory results Normal [facility] Ketones, UA Negative Negative - 160(16) ++++ mg/dL [facility] Leukocytes, UA Negative Negative - 500+++ Mookie/mcL [facility] Nitrite, UA Negative Negative - Positive [facility] pH, UA 7 5 - 9 [facility] Healthcar e Protein, UA Negative Negative - 1999(20) ++++ mg/dL [facility] Spec Grav, UA 1.015 1 - 1.03 [facility] Urobilinogen, UA 0.2 0.2 - 12 mg/dL [facility] IGP,APTIMA HPV,AGE GDLNon AGE GDLN ACOG TESTING Note . [facility] Comment on above: TESTS RESULT FLAG UN ITS REF RANGE LAB Clinician Provided Cytology Information Source.............Cervix Other.............. No. of containers..01 ThinPrep Vial Age Sharlao MAMEOG Torrey... FLAG LEGEND: L-Low Normal,H-High Normal,LL-Alert Low,HH-Alert High <-Panic Low,>-Panic High,A-Abnormal,AA-Critical Abnormal Performed at: 01 =G [facility] [address] [place] [address] Leticia Longo MD, IGP, RFX APTIMA HPV ASCU Note . [facility] Comment on above: TESTS RESULT FLAG UN ITS REF RANGE LAB DIAGNOSIS: 02 NEGATIVE FOR INTRAEPITHELIAL LESION OR MALIGNANCY. THIS SPECIMEN WAS RESCREENED PART OF OUR [employer] PROGRAM. Specimen adequacy: 02 Satisfactory for evaluation. No endocervical component is identified. Performed by: Ehsan Jamison [employer] ([facility]) QC reviewed by: 02 Nicole Houston [employer]er . 02 Note: Note 02 The Pap [...] <-Panic Low,>-Panic High,A-Abnormal,AA-Critical Abnormal Performed at: [address] [address] Leticia Longo MD, Performed at: = - [facility] [id number] Affirmative Action Officer: Leticia Longo MD, Phone: [phone] Performed at: [facility] [address] [id number] Affirmative Action Officer: Leticia Longo MD, Phone: [phone] [facility] Healthcar e URETHRITIS/DISCHARGE PLUS VA GINITIS (HTRX)on 07-05-2024 ATOPOBIUM VAGINAE 0.000 [facility] ATOPOBIUM VAGINAE Not detected [facility] BVAB 2,3 (BACTERIAL VAGINOSIS ASSOCIATED BACTERIA 2, 3); MOBILUNCUS SPP 0.000 [facility] BVAB 2,3 (BACTERIAL VAGINOSIS ASSOCIATED BACTERIA 2, 3); MOBILUNCUS SPP Not detected [facility] ASHLEY ALBICANS, PARAPSILOSIS, TROPICALIS 0.000 [facility]SH[facility] ALBICANS, PARAPSILOSIS, TROPICALIS Not detected [facility] ASHLEY GLABRATA 0.000 [facility] ASHLEY GLABRATA Not detected [facility] ASHLEY KRUSEI 0.000 [facility] Healt [facility]care ASHLEY KRUSEI Not detected [facility] CHLAMYDIA TRACHOMATIS 0.000 [facility] CHLAMYDIA TRACHOMATIS Not detected [facility] GARDNERELLA VAGINALIS 0.000 [facility] GARDNERELLA VAGINALIS Not detected [facility] MEGASPHAERA (TYPES 1, 2) 0.000 [facility] MEGASPHAERA (TYPES 1, 2) Not detected [facility] MYCOPLASMA GENITALIUM 0.000 [facility] MYCOPLASMA GENITALIUM Not detected [facility] NEISSERIA GONORRHOEAE 0.000 [facility] NEISSERIA GONORRHOEAE Not detected [facility] TRICHOMONAS VAGINALIS 0.000 [facility] TRICHOMONAS VAGINALIS Not detected [facility] Urinalysis macro (dipstick) panel (U)on 06-05-2024 Bilirubin, UA Negative Negative - 4(70) +++ mg/dL [facility] Blood, UA Negative Negative - 50 Jd/mcL [facility] Clarity, UA Clear [facility] re Color, UA Yellow [facility] Healthcar e Glucose, UA Negative Negative - 1999(110) ++++ mg/dL [facility] Interpretation and review of laboratory results Normal [facility] Ketones, UA Negative Negative - 160(16) ++++ mg/dL [facility] Leukocytes, UA Negative Negative - 500+++ Mookie/mcL [facility] Nitrite, UA Negative Negative - Positive [facility] pH, UA 6.5 5 - 9 [facility] Healthcar e Protein, UA Negative Negative - 1999(20) ++++ mg/dL [facility] Spec Grav, UA 1.015 1 - 1.03 [facility] Urobilinogen, UA 1.0 0.2 - 12 mg/dL [facility] CBC AND AUTO DIFFon 03-11-20 24 ABSOLUTE BASOPHIL 0.0 X10E9/L Normal 0.0-0.2 [facility] Comment on above: Performed By: #### C MEME, CMP, 55420-7 #### [facility] ([id number]) [address] [place] [address], [place] [address] ABSOLUTE NEUTROPHIL 7.1 X10E9/L High 1.5-6.6 [facility] Comment on above: Performed By: #### Dar VALENTINE CMP, #### [facility] ([id number]) [address] [place] [id number] Basophils/100 WBC (Bld) 0.2 % Normal [facility] Comment on above: Performed By: #### Dar VALENTINE CMP, #### [facility] ([id number]) [address] [place] [id number] Eosinophils (Bld) [#/Vol] 0.0 10*3/uL Normal 0.0-0.4 [facility] Comment on above: Performed By: #### Dar VALENTINE CMP, #### [facility] ([id number]) [address] [place] [address] Eosinophils/100 WBC (Bld) 0.4 % Normal [facility] Comment on above: Performed By: #### Dar VALENTINE CMP, #### [facility] ([id number]) [address] [place] [phone] Erythrocyte distribution width (RBC) [Ratio] 13.4 % Normal 11.5-15.0 [facility] Comment on above: Performed By: #### Dar VALENTINE CMP, #### [facility] ([id number]) [address] [place] [address]39[address] Hematocrit (Bld) [Volume fraction] 39.9 % Normal 35-47 [facility] Comment on above: Performed By: #### Dar VALENTINE CMP, #### [facility] ([id number]) [address] [place] [address]64 Hemoglobin (Bld) [Mass/Vol] 13.9 g/dL Normal 11.7-15.5 [facility] Comment on above: Performed By: #### C MEME CMP, #### [facility] ([id number]) [address] [place] [address] 07069 Lymphocytes (Bld) [#/Vol] 2.0 10*3/uL Normal 1.0-3.5 [facility] Comment on above: Performed By: #### C MEME CMP, #### [facility] ([id number]) [address] [place] [address] 669[address] Lymphocytes/100 WBC (Bld) 20.6 % Normal [facility] Comment on above: Performed By: #### Dar VALENTINE CMP, #### [facility] ([id number]) [address] [place] [address] 51630 MCH (RBC) [Entitic mass] 29.4 pg Normal 27-34 [facility] Comment on above: Performed By: #### Dar VALENTINE CMP, #### [facility] ([id number]) [address] [place] [address] 94439 MCHC (RBC) [Mass/Vol] 34.9 g/dL Normal 32-36 [facility] Comment on above: Performed By: #### Dar VALENTINE CMP, #### [facility] ([id number]) [address] [place] [address] 01931 MCV (RBC) [Entitic vol] 84 fL Normal 80-100 [facility] Comment on above: Performed By: #### Dar VALENTINE CMP, #### [facility] ([id number]) [address] [place] [address] 13855 Monocytes (Bld) [#/Vol] 0.7 10*3/uL Normal 0-0.9 [facility] Comment on above: Performed By: #### Dar VALENTINE CMP, #### [facility] ([id number]) [address] [place] [address] 83138 Monocytes/100 WBC (Bld) 7.4 % Normal [facility] Comment on above: Performed By: #### C MEME CMP, #### [facility] ([id number]) [address] [place] [address] 99963 Neutrophils/100 WBC (Bld) 71.4 % Normal [facility] Comment on above: Performed By: #### C MEME, CMP, #### [facility] ([id number]) [address] [place] [address] 31224 Platelet mean volume (Bld) [Entitic vol] 9.0 fL Normal 7-12 [facility] Comment on above: Performed By: #### C MEME CMP, #### [facility] ([id number]) [address] [place] [address] 46672 Platelets (Bld) [#/Vol] 194 10*3/uL Normal 150-450 [facility] Comment on above: Performed By: #### C MEME, CMP, #### [facility] ([id number]) [address] [place] [address] 44371 RBC COUNT 4.74 X10E12/L Normal 3.80-5.20 [facility] Comment on above: Performed By: #### C MEME, CMP, #### [facility] ([id number]) [address] [place] [address] 72010 WBC (Bld) [#/Vol] 10.0 10*3/uL Normal 4.0-11.0 [facility] Comment on above: Performed By: #### C MEME, CMP, #### [facility] ([id number]) [address] [place] [address] 20996 COMPREHENSIVE METABOLIC PANE Vini 06-10-2024 Albumin [Mass/Vol] 4.2 g/dL Normal 3.2-5.3 [facility] Comment on above: Performed By: #### C MEME CMP, #### [facility] ([id number]) [address] [place] [address] 14257 ALP [Catalytic activity/Vol] 47 U/L Normal 39-130 [facility] Comment on above: Performed By: #### C BCA, CMP, #### [facility] ([id number]) [address] [place] [address] 69555 ALT [Catalytic activity/Vol] 15 U/L Normal 0-31 [facility] Comment on above: Performed By: #### C MEME CMP, #### [facility] ([id number]) [address] [place] [address] 06022 Anion gap [Moles/Vol] 7 mmol/L Normal 5-15 [facility] Comment on above: Performed By: #### C MEME, CMP, #### [facility] ([id number]) [address] [place] [address] 76791 AST [Catalytic activity/Vol] 15 U/L Normal 0-41 [facility] Comment on above: Performed By: #### C BCA, CMP, #### [facility] ([id number]) [address] [place] [address] 22379 Bilirubin [Mass/Vol] 0.5 mg/dL Normal 0.3-1.2 [facility] Comment on above: Performed By: #### C BCA, CMP, #### [facility] ([id number]) [address] [place] [address] 30886 Calcium [Mass/Vol] 8.7 mg/dL Normal 8.5-10.5 [facility] Comment on above: Performed By: #### C AUREA VALENTINE, #### [facility] ([id number]) [address] [place] [address] 67806 Chloride [Moles/Vol] 103 mmol/L Normal 98-109 [facility] Comment on above: Performed By: #### C AUREA VALENTINE, #### [facility] ([id number]) [address] [place] [address] 85756 CO2 [Moles/Vol] 22 mmol/L Normal 22-32 [facility] Comment on above: Performed By: #### C AUREA VALENTINE, #### [facility] ([id number]) [address] [place] [address] 80215 Creatinine [Mass/Vol] 0.72 mg/dL Normal 0.40-1.00 [facility] Comment on above: Result Comment: METH OD TRACEABLE TO IDMS STANDARD Performed By: #### C AUREA VALENTINE, #### [facility] ([id number]) [address] [place] [address] 73431 eGFR (CKD-EPI) NON-RACE DEPENDENT >90 Normal >59 [facility] Comment on above: Result Comment: Reported eGFR is based on the CKD-EPI 2020 equation that does not use a race coefficient. Performed By: #### C AUREA VALENTINE, #### [facility] ([id number]) [address] [place] [address] 72053 Glucose [Mass/Vol] 81 mg/dL Normal 65-99 [facility] Comment on above: Performed By: #### C AUREA VALENTINE, #### [facility] ([id number]) [address] [place] [address] 95819 Potassium [Moles/Vol] 3.7 mmol/L Normal 3.5-5.0 [facility] Comment on above: Performed By: #### C MEME, [facility], #### [facility] ([id number]) [address] [place] [address] 66324 Protein [Mass/Vol] 7.4 g/dL Normal 6.0-8.0 [facility] Comment on above: Performed By: #### C BCA [facility], #### [facility] ([id number]) [address] [place] [address] 97164 Sodium [Moles/Vol] 132 mmol/L Low 134-146 [facility] Comment on above: Performed By: #### C MEME [facility], #### [facility] ([id number]) [address] [place] [address] 76720 Urea nitrogen [Mass/Vol] 14 mg/dL Normal 5-23 [facility] Comment on above: Performed By: #### C MEME [facility], [id number] #### [facility] ([id number]) [address] [place] [address] 59622 HCG ( test) Ql (U)o n 03-11-2024 Beta HCG ( test) Ql (U) Positive Abnormal NEG [facility] Comment on above: Performed By: #### 2 106-3 #### [facility] ([id number]) [address] [place] [address] 40317 HCG.beta subunit IA 3rd IS Q non 03-11-2024 HCG.beta subunit Qn 487397 m[IU]/mL Normal [facility] Comment on above: Result Comment: NEW [...] neoplasms. Performed By: #### C BCA, CMP, [id number] #### [facility] ([id number]) [address] [place] [address] 47096 URINE CULTUREon 03-11-2024 Bacteria identified Cx Nom (U) CULTURE RESULTS <10,000 ORGANISMS/ML NORMAL URO GENITAL RICK Normal [facility] Comment on above: Performed By: #### 6 30-4 #### [facility] ([id number]) [address] [place] [address], [address] [place] [address] URN MACROSCOPIC NURon 2023 BILIRUBIN FAWAD Negative Normal NEG [facility] Comment on above: Performed By: #### N UM #### [facility] ([id number]) [address] [place] [address] 98879 BLOOD/HGB FAWAD Negative Normal NEG [facility] Comment on above: Performed By: #### N UM #### [facility] ([id number]) [address] [place] [address] 11812 GLUCOSE FAWAD Negative Normal NEG [facility] Comment on above: Performed By: #### N UM #### [facility] ([id number]) [address] [place] [address] 05130 KETONES FAWAD Negative Normal NEG [facility] Comment on above: Performed By: #### N UM #### [facility] ([id number]) [address] [place] [address] 94442 LEUKOCYTE ESTERASE FAWAD Trace Abnormal NEG [facility] Comment on above: Performed By: #### N UM #### [facility] ([id number]) [address] [place] [address] NITRITE FAWAD Negative Normal NEG [facility] Comment on above: Performed By: #### N UM #### [facility] ([id number]) [address] [place] [address] 44718 PH FAWAD 6.5 Normal 5.0-8.5 [facility] Comment on above: Performed By: #### N UM #### [facility] ([id number]) [address] [place] [address] 64915 PROTEIN FAWAD Negative Normal NEG [facility] Comment on above: Performed By: #### N UM #### [facility] ([id number]) [address] [place] [address] 84649 SPECIFIC GRAVITY FAWAD 1.010 Normal 1.003-1.035 [facility] Comment on above: Performed By: #### N UM #### [facility] ([id number]) [address] [place] [address] 29786 UROBILINOGEN FAWAD 0.2 eu/dL Normal <1.1 [facility] Comment on above: Performed By: #### N UM #### [facility] ([id number]) [address] [place] [address] ABDOMEN AND PELVIS WO CON Ton [...] Robbins MD on 11/26/2023 5:33 PM Normal [facility] HCG ( test) Ql (U)o n 11-26-2023 Beta HCG ( test) Ql (U) Negative Normal NEG [facility] Comment on above: Performed By: #### 2 106-3 #### [facility] ([id number]) [address] [place] [address] 61213 URINE CULTUREon 11-26-2023 Bacteria identified Cx Nom [...] F TRIMETH/SULFAMETHOXA ZOLE S <=1/19 F Susceptible [facility] Comment on above: Performed By: #### 6 30-4 #### [facility] ([id number]) [address] [facility], [address] [place] [address] URN MACROSCOPIC NURon 2023 BILIRUBIN FAWAD Negative Normal NEG [facility] Comment on above: Performed By: #### N UM #### [facility] ([id number]) [address] [place] [address] 49695 BLOOD/HGB FAWAD Trace Abnormal NEG [facility] Comment on above: Performed By: #### N UM #### [facility] ([id number]) [address] [place] [address] GLUCOSE FAWAD Negative Normal NEG [facility] Comment on above: Performed By: #### N UM #### [facility] ([id number]) [address] [place] [address] 56757 KETONES FAWAD Negative Normal NEG [facility] Comment on above: Performed By: #### N UM #### [facility] ([id number]) [address] [place] [address] [place] [address] LEUKOCYTE ESTERASE FAWAD Trace Abnormal NEG [facility] Comment on above: Performed By: #### N UM #### [facility] ([id number]) [address] [place] [address] 41374 NITRITE FAWAD Negative Normal NEG [facility] Comment on above: Performed By: #### N UM #### [facility] ([id number]) [address] [place] [address] 55467 PH FAWAD 7.0 Normal 5.0-8.5 [facility] Comment on above: Performed By: #### N UM #### [facility] ([id number]) [address] [place] [address] 84386 PROTEIN FAWAD Negative Normal NEG [facility] Comment on above: Performed By: #### N UM #### [facility] ([id number]) [address] [place] [address] 58957 SPECIFIC GRAVITY FAWAD 1.020 Normal 1.003-1.035 [facility] Comment on above: Performed By: #### N UM #### [facility] ([id number]) [address] [place] [address] 44631 UROBILINOGEN FAWAD 0.2 eu/dL Normal <1.1 [facility] Comment on above: Performed By: #### N UM #### [facility] ([id number]) [address] [place] [address] [place] [address] ED Note-Physicianon 09-29-20 ED Note-Physician [id number] #1.00TIFF Normal [facility] Urinalysis - AUTOMATEDon Appearance (U) clear [employer] Other Bilirubin Ql (U) Negative [employer] Other Color (U) light yellow [employer] Other Glucose Ql (U) Negative [employer] Other Hemoglobin Ql (U) Negative [employer] Other Ketones Ql (U) Negative [employer] Other Leukocyte esterase Test strip Ql (U) Negative [employer] Other Nitrite Ql (U) Negative [employer] Other pH (U) 6.0 [pH] [employer] Other Protein Ql (U) Negative [employer] Other Specific gravity (U) [Rel density] >1.030 [employer] Other Urobilinogen (U) [Mass/Vol] 0.2 mg/dL [employer] Other Urinalysis - AUTOMATED [employer] Other Vaginitis Plus (VG+)on 07-17 Vaginitis Plus (VG+) Negative Negative [employer] Other Vaginitis Plus (VG+) Low - 0 . [employer] Other CBC AUTO DIFFon 12-27-2022 BASO # 0.0 103/ul Normal 0.0-0.1 [facility] Comment on above: Performed By: #### R PRQ #### [facility] [address] [place] [address] Dr. Valerio Alexis Basophils/100 WBC (Bld) 0.2 % Normal 0.2-2.0 [facility] Comment on above: Performed By: #### R PRQ #### [facility] [address] [place] [address] Dr. Valerio Alexis EO # 0.1 103/ul Normal 0.0-0.7 [facility] Comment on above: Performed By: #### R PRQ #### [facility] [address] [place] [address] Dr. Valerio Alexis Eosinophils/100 WBC (Bld) 0.6 % Critically low 0.9-7.0 [facility] Comment on above: Performed By: #### R PRQ #### [facility] [address] [place] [address] Dr. Valerio Alexis Erythrocyte distribution width (RBC) [Ratio] 14.1 % Normal 11.0-15.0 [facility] Comment on above: Performed By: #### R PRQ #### [facility] [address] [place] [address] Dr. Valerio Alexis Hematocrit (Bld) [Volume fraction] 35.7 % Critically low 36.0-48.0 [facility] Comment on above: Performed By: #### R PRQ #### [facility] [address] [place] [address] Dr. Valerio Alexis Hemoglobin (Bld) [Mass/Vol] 11.9 g/dL Critically low 12.0-16.0 [facility] Comment on above: Performed By: #### R PRQ #### [facility] [address] [place] [address] Dr. Valerio Alexis IG # 0.02 10e3/ul Normal 0.00-0.03 [facility] Comment on above: Performed By: #### R PRQ #### [facility] [address] [place] [address] Dr. Valerio Alexis IG % 0.2 % Normal 0.0-0.5 [facility] Comment on above: Performed By: #### R PRQ #### [facility] [address] [address] [address] Valerio Alexis LYMPH # 1.0 103/ul Critically low 1.2-3.8 [facility] Comment on above: Performed By: #### R PRQ #### [facility] [address] [address] [address] Valerio Alexis Lymphocytes/100 WBC (Bld) 12.4 % Critically low 20.5-60.0 [facility] Comment on above: Performed By: #### R PRQ #### [facility] [address] [address] [address] Valerio Alexis MANUAL DIFF REQ NO Normal [facility] Comment on above: Performed By: #### R PRQ #### [facility] [address] [place] [address] Dr. Valerio Alexis MCH (RBC) [Entitic mass] 26.7 pg Normal 26.7-34.0 [facility] Comment on above: Performed By: #### R PRQ #### [facility] [address] [address] [address] Valerio Alexis MCHC (RBC) [Mass/Vol] 33.3 g/dL Normal 29.9-35.2 [facility] Comment on above: Performed By: #### R PRQ #### [facility] [address] [place] [address] Dr. Valerio Alexis MCV (RBC) [Entitic vol] 80.2 fL Critically low 81.0-99.0 [facility] Comment on above: Performed By: #### R PRQ #### [facility] [address] [address] [address] Valerio Alexis MONO # 0.8 103/ul Normal 0.3-0.8 [facility] Comment on above: Performed By: #### R PRQ #### [facility] [address] [address] [address] Valerio Alexis Monocytes/100 WBC (Bld) 9.3 % Normal 1.7-12.0 [facility] Comment on above: Performed By: #### R PRQ #### [facility] [address] [place] [address] Dr. Valerio Alexis NEUT # 6.3 103/ul Normal 1.4-6.5 [facility] Comment on above: Performed By: #### R PRQ #### [facility] [address] [place] [address] Dr. Valerio Alexis Neutrophils/100 WBC (Bld) 77.3 % Critically high 43.0-75.0 [facility] Comment on above: Performed By: #### R PRQ #### [facility] [address] [place] [address] Dr. Valerio Alexis Platelet mean volume (Bld) [Entitic vol] 10.6 fL Normal 9.5-13.5 [facility] Comment on above: Performed By: #### R PRQ #### [facility] [address] [place] [address] Dr. Valerio Alexis PLT 192 103/ul Normal 150-450 [facility] Comment on above: Performed By: #### R PRQ #### [facility] [address] [place] [address] Dr. Valerio Alexis RBC 4.45 106/ul Normal 4.20-5.40 [facility] Comment on above: Performed By: #### R PRQ #### [facility] [address] [place] [address] Dr. Valerio Alexis WBC 8.2 103/ul Normal 4.0-11.0 [facility] Comment on above: Performed By: #### R PRQ #### [facility] [address] [place] [address] Dr. Valerio Alexis GI PANEL (PCR)on 12-27-2022 Adenovirus F 40/41 Not detected Normal NOT DETECTED [facility] Comment on above: Performed By: #### U RCX #### [facility] [address] [place] [address] Dr. Valerio Alexis Astrovirus Not detected Normal NOT DETECTED [facility] Comment on above: Performed By: #### U RCX #### [facility] [address] [place] [address] Dr. Valerio Alexis C. Diff toxin A/B Not detected Normal NOT DETECTED [facility] Comment on above: Performed By: #### U RCX #### [facility] [address] [place] [address] Dr. Valerio Alexis Campylobacter Detected Critically abnormal NOT DETECTED [facility] Comment on above: Performed By: #### U RCX #### [facility] [address] [place] [address] Dr. Valerio Alexis Cryptosporidium Not detected Normal NOT DETECTED [facility] Comment on above: Performed By: #### U RCX #### [facility] [address] [address] [address] Valerio Alexis Cyclos. Cayetanensis Not detected Normal NOT DETECTED [facility] Comment on above: Performed By: #### U RCX #### [facility] [address] [place] [address] Dr. Valerio Alexis E. Coli O157 Not Applicable Normal Not Applicable [facility] Comment on above: Performed By: #### U RCX #### [facility] [address] [place] [address] Dr. Valerio Alexis E. histolytica Not detected Normal NOT DETECTED [facility] Comment on above: Performed By: #### U RCX #### [facility] [address] [place] [address] Dr. Valerio Alexis EAEC Not detected Normal NOT DETECTED [facility] Comment on above: Performed By: #### U RCX #### [facility] [address] [place] [address] Dr. Valerio Alexis EIEC Not detected Normal NOT DETECTED [facility] Comment on above: Performed By: #### U RCX #### [facility] [address] [place] [address] Dr. Valerio Alexis EPEC Not detected Normal NOT DETECTED [facility] Comment on above: Performed By: #### U RCX #### [facility] [address] [place] [address] Dr. Valerio Alexis ETEC Not detected Normal NOT DETECTED [facility] Comment on above: Performed By: #### U RCX #### [facility] [address] [address] [address] Valerio Ruiz Lamblia Not detected Normal NOT DETECTED [facility] Comment on above: Performed By: #### U RCX #### [facility] [address] [address] [address] Valerio HUDSON CONTROLS PASSED Normal [facility] Comment on above: Performed By: #### U RCX #### [facility] [address] [address] [address] Valerio HARRIS EDE HEADER GI PANEL BACTERIA Normal [facility] Comment on above: Performed By: #### U RCX #### [facility] [address] [address] [address] Valerio LÓPEZ ECOLI GI PANEL DIARRHEAGENIC E.COLI / SHIGELLA Normal [facility] Comment on above: Performed By: #### U RCX #### [facility] [address] [address] [address] Valerio LÓPEZ INFO SEE BELOW Normal [facility] Comment on above: Result Comment: EAEC - Enteroaggregative E. Coli EPEC- Enteropathogenic E. Coli ETEC- Enterotoxigenic E. Coli lt/st STEC- Shigella-like toxin-producing E. Coli stx1/stx2 EIEC- Shigella/Enteroinvasive E. Coli Performed By: #### U RCX #### [facility] [address] [address] [address] Valerio LÓPEZ PARASITES GI PANEL PARASITES Normal [facility] Comment on above: Performed By: #### U RCX #### [facility] [address] [address] [address] Valerio LÓPEZ VIRUS GI PANEL VIRUSES Normal [facility] Comment on above: Performed By: #### U RCX #### [facility] [address] [address] [address] Valerio Alexis Norovirus GI/GII Not detected Normal NOT DETECTED [facility] Comment on above: Performed By: #### U RCX #### [facility] [address] [address] [address] Valerio Alexis P. Shigelloides Not detected Normal NOT DETECTED [facility] Comment on above: Performed By: #### U RCX #### [facility] [address] [address] [address] Valerio Alexis Rotavirus A Not detected Normal NOT DETECTED [facility] Comment on above: Performed By: #### U RCX #### [facility] [address] [address] [address] Valerio Alexis Salmonella Not detected Normal NOT DETECTED [facility] Comment on above: Performed By: #### U RCX #### [facility] [address] [place] [address] Dr. Valerio Alexis Sapovirus Not detected Normal NOT DETECTED [facility] Comment on above: Performed By: #### U RCX #### [facility] [address] [place] [address] Dr. Valerio Alexis STEC Not detected Normal NOT DETECTED [facility] Comment on above: Performed By: #### U RCX #### [facility] [address] [address] [address] Valerio Alexis Vibrio Not detected Normal NOT DETECTED [facility] Comment on above: Performed By: #### U RCX #### [facility] [address] [place] [address] Dr. Valerio Alexis Vibrio Cholera Not detected Normal NOT DETECTED [facility] Comment on above: Performed By: #### U RCX #### [facility] [address] [place] [address] Dr. Valerio Alexis Y. Enterocolitica Not detected Normal NOT DETECTED [facility] Comment on above: Performed By: #### U RCX #### [facility] [address] [place] [address] Dr. Valerio Alexis PROF CHEM 8 (BAS METB)on Anion gap [Moles/Vol] 14.7 mmol/L Normal [facility] Comment on above: Performed By: #### R PRQ #### [facility] [address] [address] [address] Valerio Alexis Calcium [Mass/Vol] 8.8 mg/dL Normal 8.5-10.1 [facility] [facility] Comment on above: Performed By: #### R PRQ #### [facility] [address] [address] [address] Valerio Alexis Chloride [Moles/Vol] 104 mmol/L Normal 98-107 [facility] Comment on above: Performed By: #### R PRQ #### [facility] [address] [address] [address] Valerio Alexis CO2 [Moles/Vol] 23.6 mmol/L Normal 21.0-32.0 [facility] Comment on above: Performed By: #### R PRQ #### [facility] [address] [place] [address] Dr. Valerio Alexis Creatinine [Mass/Vol] 0.72 mg/dL Normal 0.55-1.02 [facility] Comment on above: Performed By: #### R PRQ #### [facility] [address] [address] [address] Valerio Alexis EGFR-AF [place]I >60 Normal >=60 [facility] Comment on above: Performed By: #### R PRQ #### [facility] [address] [place] [address] Dr. Valerio Alexis EGFR-NON AF [place] >60 Normal >=60 [facility] Comment on above: Performed By: #### R PRQ #### [facility] [address] [address] [address] Valerio Alexis Glucose [Mass/Vol] 77 mg/dL Normal 74-106 [facility] Comment on above: Performed By: #### R PRQ #### [facility] [address] [address] [address] Valerio Alexis Potassium [Moles/Vol] 3.3 mmol/L Critically low 3.5-5.1 [facility] Comment on above: Performed By: #### R PRQ #### [facility] [address] [address] [address] Valerio Alexis Sodium [Moles/Vol] 139 mmol/L Normal 136-145 [facility] Comment on above: Performed By: #### R PRQ #### [facility] [address] [place] [address] Dr. Valerio Alexis Urea nitrogen [Mass/Vol] 12.0 mg/dL Normal 7.0-18.0 [facility] Comment on above: Performed By: #### R PRQ #### [facility] [address] [place] [address] Dr. Valerio Alexis Urea nitrogen/Creatinine [Mass ratio] 16.7 mg/mg Normal [facility] Comment on above: Performed By: #### R PRQ #### [facility] [address] [place] [address] Dr. Valerio Alexis CBC AUTO DIFFon 11-19-2022 BASO # 0.0 103/ul Normal 0.0-0.1 [facility] Comment on above: Performed By: #### H IV12 #### [facility] [address] [place] [address] Dr. Valerio Alexis Basophils/100 WBC (Bld) 0.2 % Normal 0.2-2.0 [facility] Comment on above: Performed By: #### H IV12 #### [facility] [address] [place] [address] Dr. Valerio Alexis EO # 0.1 103/ul Normal 0.0-0.7 [facility] Comment on above: Performed By: #### H IV12 #### [facility] [address] [place] [address] Dr. Valerio Alexis Eosinophils/100 WBC (Bld) 1.7 % Normal 0.9-7.0 [facility] Comment on above: Performed By: #### H IV12 #### [facility] [address] [place] [address] Dr. Valerio Alexis Erythrocyte distribution width (RBC) [Ratio] 13.4 % Normal 11.0-15.0 [facility] Comment on above: Performed By: #### H IV12 #### [facility] [address] [place] [address] Dr. Valerio Alexis Hematocrit (Bld) [Volume fraction] 38.0 % Normal 36.0-48.0 [facility] Comment on above: Performed By: #### H IV12 #### [facility] [address] [place] [address] Dr. Valerio Alexis Hemoglobin (Bld) [Mass/Vol] 12.5 g/dL Normal 12.0-16.0 [facility] Comment on above: Performed By: #### H IV12 #### [facility] [address] [place] [address] Dr. Valerio Alexis IG # 0.02 10e3/ul Normal 0.00-0.03 [facility] Comment on above: Performed By: #### H IV12 #### [facility] [address] [place] [address] Dr. Valerio Alexis IG % 0.3 % Normal 0.0-0.5 [facility] Comment on above: Performed By: #### H IV12 #### [facility] [address] [place] [address] Dr. Valerio Alexis LYMPH # 1.7 103/ul Normal 1.2-3.8 [facility] Comment on above: Performed By: #### H IV12 #### [facility] [address] [place] [address] Dr. Valerio Alexis Lymphocytes/100 WBC (Bld) 25.9 % Normal 20.5-60.0 [facility] Comment on above: Performed By: #### H IV12 #### [facility] [address] [place] [address] Dr. Valerio Alexis MANUAL DIFF REQ NO Normal [facility] Comment on above: Performed By: #### H IV12 #### [facility] [address] [place] [address] Dr. Valerio Alexis MCH (RBC) [Entitic mass] 26.3 pg Critically low 26.7-34.0 [facility] Comment on above: Performed By: #### H IV12 #### [facility] [address] [place] [address] Dr. Valerio Alexis MCHC (RBC) [Mass/Vol] 32.9 g/dL Normal 29.9-35.2 [facility] Comment on above: Performed By: #### H IV12 #### [facility] [address] [place] [address] Dr. Valerio Alexis MCV (RBC) [Entitic vol] 80.0 fL Critically low 81.0-99.0 [facility] Comment on above: Performed By: #### H IV12 #### [facility] [address] [place] [address] Dr. Valerio Alexis MONO # 0.6 103/ul Normal 0.3-0.8 [facility] Comment on above: Performed By: #### H IV12 #### [facility] [address] [place] [address] Dr. Valerio Alexis Monocytes/100 WBC (Bld) 9.2 % Normal 1.7-12.0 [facility] Comment on above: Performed By: #### H IV12 #### [facility] [address] [place] [address] Dr. Valerio Alexis NEUT # 4.1 103/ul Normal 1.4-6.5 [facility] Comment on above: Performed By: #### H IV12 #### [facility] [address] [place] [address] Dr. Valerio Alexis Neutrophils/100 WBC (Bld) 62.7 % Normal 43.0-75.0 [facility] Comment on above: Performed By: #### H IV12 #### [facility] [address] [place] [address] Dr. Valerio Alexis Platelet mean volume (Bld) [Entitic vol] 10.4 fL Normal 9.5-13.5 [facility] Comment on above: Performed By: #### H IV12 #### [facility] [address] [place] [address] Dr. Valerio Alexis PLT 254 103/ul Normal 150-450 [facility] Comment on above: Performed By: #### H IV12 #### [facility] [address] [address] [address] Valerio Alexis RBC 4.75 106/ul Normal 4.20-5.40 [facility] Comment on above: Performed By: #### H IV12 #### [facility] [address] [address] [address] Valerio Alexis WBC 6.5 103/ul Normal 4.0-11.0 [facility] Comment on above: Performed By: #### H IV12 #### [facility] [address] [address] [address] ABD/PELVIS WO CONon [...] MAHAD OLIVEROS Date: 2022-11-19 00:58 Normal [facility] ER URINE PROFILEon 3 Bilirubin Ql (U) Negative Normal NEGATIVE [facility] Comment on above: Performed By: #### H H #### [facility] [address] [place] [address] Dr. Valerio Alexis Clarity (U) CLEAR Normal CLEAR [facility] Comment on above: Performed By: #### H H #### [facility] [address] [place] [address] Dr. Valerio Alexis Color (U) LT. YELLOW Normal YELLOW [facility] Comment on above: Performed By: #### H H #### [facility] [address] [place] [address] Dr. Valerio LIVEAHUmesh A micrscopic examination will be performed if indicated. Normal [facility] Comment on above: Performed By: #### H H #### [facility] [address] [place] [address] Dr. Valerio Alexis Glucose Ql (U) Negative Normal NEGATIVE [facility] Comment on above: Performed By: #### H H #### [facility] [address] [address] [address] Valerio Alexis Hemoglobin Ql (U) Negative Normal NEGATIVE [facility] Comment on above: Performed By: #### H H #### [facility] [address] [place] [address] Dr. Valerio Alexis Ketones Ql (U) Negative Normal NEGATIVE [facility] Comment on above: Performed By: #### H H #### [facility] [address] [place] [address] Dr. Valerio Alexis LEUKOCYTES Negative Normal NEGATIVE [facility] Comment on above: Performed By: #### H H #### [facility] [address] [place] [address] Dr. Valerio Alexis Nitrite Ql (U) Negative Normal NEGATIVE [facility] Comment on above: Performed By: #### H H #### [facility] [address] [place] [address] Dr. Valerio Alexis pH (U) 6.0 [pH] Normal 5-9 [facility] Comment on above: Performed By: #### H H #### [facility] [address] [address] [address] Valerio Alexis SPEC GRAVITY 1.010 Normal 1.005-<=1.025 [facility] Comment on above: Performed By: #### H H #### [facility] [address] [place] [address] Dr. Valerio Alexis UA PROTEIN Negative Normal NEGATIVE/ TRACE [facility] Comment on above: Performed By: #### H H #### [facility] [address] [place] [address] Dr. Valerio Alexis UR MICRO IND NOT INDICATED Normal [facility] Comment on above: Performed By: #### H H #### [facility] [address] [address] [address] Valerio Alexis Urobilinogen Qn (U) 0.2 {Nicolas'U}/dL Normal 0.2 - 1. 0 [facility] Comment on above: Performed By: #### H H #### [facility] [address] [address] [address] Valerio Alexis PROF CHEM 8 (BAS METB)on Anion gap [Moles/Vol] 12.1 mmol/L Normal [facility] Comment on above: Performed By: #### H H #### [facility] [address] [place] [address] Dr. Valerio Alexis Calcium [Mass/Vol] 9.2 mg/dL Normal 8.5-10.1 [facility] Comment on above: Performed By: #### H H #### [facility] [address] [place] [address] Dr. Valerio Alexis Chloride [Moles/Vol] 104 mmol/L Normal 98-107 [facility] Comment on above: Performed By: #### H H #### [facility] [address] [place] [address] Dr. Valerio Alexis CO2 [Moles/Vol] 27.0 mmol/L Normal 21.0-32.0 [facility] Comment on above: Performed By: #### H H #### [facility] [address] [place] [address] Dr. Valerio Alexis Creatinine [Mass/Vol] 0.75 mg/dL Normal 0.55-1.02 [facility] Comment on above: Performed By: #### H H #### [facility] [address] [place] [address] Dr. Valerio lAexis EGFR-AF [place] >60 Normal >=60 [facility] Comment on above: Performed By: #### H H #### [facility] [address] [address] [address] Valerio Alexis EGFR-NON AF [place] >60 Normal >=60 [facility] Comment on above: Performed By: #### H H #### [facility] [address] [address] [address] Valerio Alexis Glucose [Mass/Vol] 83 mg/dL Normal 74-106 [facility] Comment on above: Performed By: #### H H #### [facility] [address] [place] [address] Dr. Valerio Alexis Potassium [Moles/Vol] 4.1 mmol/L Normal 3.5-5.1 [facility] Comment on above: Performed By: #### H H #### [facility] [address] [place] [address] Dr. Valerio Alexis Sodium [Moles/Vol] 139 mmol/L Normal 136-145 [facility] Comment on above: Performed By: #### H H #### [facility] [address] [place] [address] Dr. Valerio Alexis Urea nitrogen [Mass/Vol] 16.0 mg/dL Normal 7.0-18.0 [facility] Comment on above: Performed By: #### H H #### [facility] [address] [place] [address] Dr. Valerio Alexis Urea nitrogen/Creatinine [Mass ratio] 21.3 mg/mg Normal [facility] Comment on above: Performed By: #### H H #### [facility] [address] [place] [address] Dr. Valerio Alexis CHLAMYDIA/GONOCOCCUS CHULA ( AB/URINE/PAPon 10-27-2022 Chlamydia trachomatis, CHULA Negative Normal Negative [facility] Comment on above: Performed By: #### N BOX #### [facility] [address] [place] [address] Dr. Valerio Alexis Neisseria gonorrhoeae, CHULA Negative Normal Negative [facility] Comment on above: Performed By: #### N BOX #### [facility] [address] [place] [address] Dr. Valerio Alexis VAGINITIS/VAGINOSIS DNA PROB Dane 10-26-2022 Ashley species Negative Normal Negative [facility] Comment on above: Performed By: #### R PRQ #### [facility] [address] [place] [address] Dr. Valerio Alexis Gardnerella vaginalis Positive Abnormal Negative [facility] Comment on above: Performed By: #### R PRQ #### [facility] [address] [place] [address] Dr. Valerio Alexis Trichomonas vaginalis Negative Normal Negative [facility] Comment on above: Performed By: #### R PRQ #### [facility] [address] [address] [address] Valerio Alexis MICRO OTHER TESTSOrdered By: Cesar Riggs on 09-27-2022 S. pyogenes Ag IA.rapid Ql (Throat) Negative (09/27/22 11:23 PM) Normal Negative [facility] Man Sero CBC AUTO DIFFon 08-25-2022 BASO # 0.0 103/ul Normal 0.0-0.1 [facility] Comment on above: Performed By: #### R PRQ #### [facility] [address] [place] [address] Dr. Valerio Alexis Basophils/100 WBC (Bld) 0.3 % Normal 0.2-2.0 [facility] Comment on above: Performed By: #### R PRQ #### [facility] [address] [place] [address] Dr. Valerio Alexis EO # 0.1 103/ul Normal 0.0-0.7 [facility] Comment on above: Performed By: #### R PRQ #### [facility] [address] [place] [address] Dr. Valerio Alexis Eosinophils/100 WBC (Bld) 0.7 % Critically low 0.9-7.0 [facility] Comment on above: Performed By: #### R PRQ #### [facility] [address] [place] [address] Dr. Valerio Alexis Erythrocyte distribution width (RBC) [Ratio] 13.6 % Normal 11.0-15.0 [facility] Comment on above: Performed By: #### R PRQ #### [facility] [address] [place] [address] Dr. Valerio Alexis Hematocrit (Bld) [Volume fraction] 28.2 % Critically low 36.0-48.0 [facility] Comment on above: Performed By: #### R PRQ #### [facility] [address] [place] [address] Dr. Valerio Alexis Hemoglobin (Bld) [Mass/Vol] 9.6 g/dL Critically low 12.0-16.0 [facility] Comment on above: Performed By: #### R PRQ #### [facility] [address] [place] [address] Dr. Valerio Alexis IG # 0.10 10e3/ul Critically high 0.00-0.03 [facility] Comment on above: Performed By: #### R PRQ #### [facility] [address] [place] [address] Dr. Valerio Alexis IG % 0.7 % Critically high 0.0-0.5 [facility] Comment on above: Performed By: #### R PRQ #### [facility] [address] [place] [address] Dr. Valerio Alexis LYMPH # 2.2 103/ul Normal 1.2-3.8 [facility] Comment on above: Performed By: #### R PRQ #### [facility] [address] [place] [address] Dr. Valerio Alexis Lymphocytes/100 WBC (Bld) 16.5 % Critically low 20.5-60.0 [facility] Comment on above: Performed By: #### R PRQ #### [facility] [address] [place] [address] Dr. Valerio Alexis MANUAL DIFF REQ NO Normal [facility] Comment on above: Performed By: #### R PRQ #### [facility] [address] [place] [address] Dr. Valerio Alexis MCH (RBC) [Entitic mass] 27.7 pg Normal 26.7-34.0 [facility] Comment on above: Performed By: #### R PRQ #### [facility] [address] [place] [address] Dr. Valerio Alexis MCHC (RBC) [Mass/Vol] 34.0 g/dL Normal 29.9-35.2 [facility] Comment on above: Performed By: #### R PRQ #### [facility] [address] [place] [address] Dr. Valerio Alexis MCV (RBC) [Entitic vol] 81.3 fL Normal 81.0-99.0 [facility] Comment on above: Performed By: #### R PRQ #### [facility] [address] [place] [address] Dr. Valerio Alexis MONO # 1.2 103/ul Critically high 0.3-0.8 [facility] Comment on above: Performed By: #### R PRQ #### [facility] [address] [place] [address] Dr. Valerio Alexis Monocytes/100 WBC (Bld) 8.7 % Normal 1.7-12.0 [facility] Comment on above: Performed By: #### R PRQ #### [facility] [address] [place] [address] Dr. Valerio Alexis NEUT # 9.9 103/ul Critically high 1.4-6.5 [facility] Comment on above: Performed By: #### R PRQ #### [facility] [address] [place] [address] Dr. Valerio Alexis Neutrophils/100 WBC (Bld) 73.1 % Normal 43.0-75.0 [facility] Comment on above: Performed By: #### R PRQ #### [facility] [address] [place] [address] Dr. Valerio Alexis Platelet mean volume (Bld) [Entitic vol] 9.9 fL Normal 9.5-13.5 [facility] Comment on above: Performed By: #### R PRQ #### [facility] [address] [place] [address] Dr. Valerio Alexis PLT 200 103/ul Normal 150-450 [facility] Comment on above: Performed By: #### R PRQ #### [facility] [address] [place] [address] Dr. Valerio Alexis RBC 3.47 106/ul Critically low 4.20-5.40 [facility] Comment on above: Performed By: #### R PRQ #### [facility] [address] [place] [address] Dr. Valerio Alexis WBC 13.5 103/ul Critically high 4.0-11.0 [facility] Comment on above: Performed By: #### R PRQ #### [facility] [address] [place] [address] Dr. Valerio Alexis CBC AUTO DIFFon 08-24-2022 BASO # 0.0 103/ul Normal 0.0-0.1 [facility] Comment on above: Performed By: #### H H #### [facility] [address] [place] [address] Dr. Valerio Alexis Basophils/100 WBC (Bld) 0.3 % Normal 0.2-2.0 [facility] Comment on above: Performed By: #### H H #### [facility] [address] [place] [address] Dr. Valerio Alexis EO # 0.1 103/ul Normal 0.0-0.7 [facility] Comment on above: Performed By: #### H H #### [facility] [address] [place] [address] Dr. Valerio Alexis Eosinophils/100 WBC (Bld) 0.5 % Critically low 0.9-7.0 [facility] Comment on above: Performed By: #### H H #### [facility] [address] [place] [address] Dr. Valerio Alexis Erythrocyte distribution width (RBC) [Ratio] 13.2 % Normal 11.0-15.0 [facility] Comment on above: Performed By: #### H H #### [facility] [address] [place] [address] Dr. Valerio Alexis Hematocrit (Bld) [Volume fraction] 32.4 % Critically low 36.0-48.0 [facility] Comment on above: Performed By: #### H H #### [facility] [address] [place] [address] Dr. Valerio Alexis Hemoglobin (Bld) [Mass/Vol] 10.9 g/dL Critically low 12.0-16.0 [facility] Comment on above: Performed By: #### H H #### [facility] [address] [address] [address] Valerio Alexis IG # 0.07 10e3/ul Critically high 0.00-0.03 [facility] Comment on above: Performed By: #### H H #### [facility] [address] [place] [address] Dr. Valerio Alexis IG % 0.6 % Critically high 0.0-0.5 [facility] Comment on above: Performed By: #### H H #### [facility] [address] [address] [address] Valerio Alexis LYMPH # 2.0 103/ul Normal 1.2-3.8 [facility] Comment on above: Performed By: #### H H #### [facility] [address] [place] [address] Dr. Valerio Alexis Lymphocytes/100 WBC (Bld) 18.4 % Critically low 20.5-60.0 [facility] Comment on above: Performed By: #### H H #### [facility] [address] [place] [address] Dr. Valerio Alexis MANUAL DIFF REQ NO Normal [facility] Comment on above: Performed By: #### H H #### [facility] [address] [address] [address] Valerio Alexis MCH (RBC) [Entitic mass] 27.1 pg Normal 26.7-34.0 [facility] Comment on above: Performed By: #### H H #### [facility] [address] [place] [address] Dr. Valerio Alexis MCHC (RBC) [Mass/Vol] 33.6 g/dL Normal 29.9-35.2 [facility] Comment on above: Performed By: #### H H #### [facility] [address] [place] [address] Dr. Valerio Alexis MCV (RBC) [Entitic vol] 80.6 fL Critically low 81.0-99.0 [facility] Comment on above: Performed By: #### H H #### [facility] [address] [place] [address] Dr. Valerio Alexis MONO # 0.9 103/ul Critically high 0.3-0.8 [facility] Comment on above: Performed By: #### H H #### [facility] [address] [place] [address] Dr. Valerio Alexis Monocytes/100 WBC (Bld) 8.5 % Normal 1.7-12.0 [facility] Comment on above: Performed By: #### H H #### [facility] [address] [place] [address] Dr. Valerio Alexis NEUT # 7.7 103/ul Critically high 1.4-6.5 [facility] Comment on above: Performed By: #### H H #### [facility] [address] [place] [address] Dr. Valerio Alexis Neutrophils/100 WBC (Bld) 71.7 % Normal 43.0-75.0 [facility] Comment on above: Performed By: #### H H #### [facility] [address] [place] [address] Dr. Valerio Alexis Platelet mean volume (Bld) [Entitic vol] 9.8 fL Normal 9.5-13.5 [facility] Comment on above: Performed By: #### H H #### [facility] [address] [place] [address] Dr. Valerio Alexis PLT 273 103/ul Normal 150-450 [facility] Comment on above: Performed By: #### H H #### [facility] [address] [place] [address] Dr. Valerio Alexis RBC 4.02 106/ul Critically low 4.20-5.40 [facility] Comment on above: Performed By: #### H H #### [facility] [address] [address] [address] Valerio Alexis WBC 10.8 103/ul Normal 4.0-11.0 [facility] Comment on above: Performed By: #### H H #### [facility] [address] [address] [address] Valerio Alexis Covid-19 PCR ([facility])on 08-03 SARS-CoV-2 (COVID-19) RNA CHULA+probe Ql (Unsp spec) Not detected Normal NOT DETECTED [facility] Comment on above: [...] for this test is supported by the [place] of Health and Human Service's declaration that [...] used). Performed By: #### H H #### [facility] [address] [place] [address] Dr. Valerio Alexis DRUG SCREEN RAPID (URINE)on 08-24-2022 AMP Negative Normal NEGATIVE [facility] Comment on above: Performed By: #### H H #### [facility] [address] [address] [address] Valerio Alexis BAR Negative Normal NEGATIVE [facility] Comment on above: Performed By: #### H H #### [facility] [address] [address] [address] Valerio Alexis BUP Negative Normal NEGATIVE [facility] Comment on above: Performed By: #### H H #### [facility] [address] [address] [address] Valerio Alexis BZO Negative Normal NEGATIVE [facility] Comment on above: Performed By: #### H H #### [facility] [address] [address] [address] Valerio Alexis WENDY Negative Normal NEGATIVE [facility] Comment on above: Performed By: #### H H #### [facility] [address] [address] [address] Valerio Alexis CUT-OFFS SEE BELOW Normal [facility] Comment on above: Result Comment: AMP (Amphetamine): 500ng/mL, BAR (Barbituates): 200 ng/mL, BZO (Benzodiazepines): 150 ng/mL, BUP (Buprenorphine): 10 ng/mL, WENDY (Cocaine): 150 ng/mL, mAMP (Methamphetamine): 500 ng/mL, MTD (Methadone): 200 ng/mL, OPI (Opiates): 100 ng/mL, OXY (Oxycodone): 100 ng/mL, PCP (Phencyclidine): 25 ng/mL, PPX (Propoxyphene): 300 ng/mL, THC (Cannabinoids): 50 ng/mL, TCA (Trycyclic Antidepressants): 300 ng/mL Performed By: #### H H #### [facility] [address] [place] [address] Dr. Valerio Alexis DRUG CUT HEADER DRUG CLASS TEST SYSTEM CUT-OFF CONCENTRATIONS ARE FOLLOWS: Normal [facility] Comment on above: Performed By: #### H H #### [facility] [address] [place] [address] Dr. Valerio Alexis mAMP Negative Normal NEGATIVE [facility] Comment on above: Performed By: #### H H #### [facility] [address] [place] [address] Dr. Valerio Alexis MTD Negative Normal NEGATIVE [facility] Comment on above: Performed By: #### H H #### [facility] [address] [place] [address] Dr. Valerio Alexis OPI Negative Normal NEGATIVE [facility] Comment on above: Performed By: #### H H #### [facility] [address] [place] [address] Dr. Valerio Alexis OXY Negative Normal NEGATIVE [facility] Comment on above: Performed By: #### H H #### [facility] [address] [place] [address] Dr. Valerio Alexis PCP Negative Normal NEGATIVE [facility] Comment on above: Performed By: #### H H #### [facility] [address] [address] [address] Valerio Alexis PPX Negative Normal NEGATIVE [facility] Comment on above: Performed By: #### H H #### [facility] [address] [place] [address] Dr. Valerio Alexis TCA Negative Normal NEGATIVE [facility] Comment on above: Performed By: #### H H #### [facility] [address] [place] [address] Dr. Valerio Alexis THC Negative Normal NEGATIVE [facility] Comment on above: Performed By: #### H H #### [facility] [address] [place] [address] Dr. Valerio Alexis TYPE AND SCREENon 08-24-2022 TYPE AND SCREEN Negative Normal [facility] Comment on above: Performed By: #### T NS #### [facility] [address] [place] [address] Dr. Valerio Alexis US PREG BIOPHY W NON STRESSo n 08-22-2022 US PREG BIOPHY W NON STRESS EXAMINATION: US PREG BIOPHY W NON STRESS HISTORY: [id number] baby COMPARISON: 08/16/2022 TECHNIQUE: Ultrasound biophysical profile was performed in the radiology department. FINDINGS: BREATHING MOVEMENTS: 2.0 GROSS BODY MOVEMENTS: 2.0 TONE: 2.0 QUALITATIVE AMNIOTIC FLUID VOLUME: 2.0 PRESENTATION: Cephalic HEART RATE: 137.8 bpm H.B./min AMNIOTIC FLUID VOLUME: 10.3 cm cm GESTATIONAL AGE: 38 weeks 5 days CONCLUSION: Total biophysical profile score: 8.0 Electronically authenticated by: LEE CLAY Date: 2022-08-22 13:46 Normal [facility] US PREG UMBILICAL ARTERYon 1 10-22-2021 US PREG UMBILICAL ARTERY EXAMINATION: US PREG UMBILICAL ARTERY HISTORY: [id number] baby COMPARISON: No relevant comparison available. TECHNIQUE: [...] by: LEE CLAY Date: 2022-08-22 13:48 Normal [facility] US PREG BIOPHY W NON STRESSo n 08-17-2022 US PREG BIOPHY W NON STRESS EXAMINATION: US PREG BIOPHY W NON STRESS HISTORY: [id number] baby COMPARISON: Ultrasound biophysical 08/15/2022 TECHNIQUE: Ultrasound biophysical profile was performed. FINDINGS: IMPRESSION: BREATHING MOVEMENTS: 2.0 GROSS BODY MOVEMENTS: 2.0 TONE: 2.0 QUALITATIVE AMNIOTIC FLUID VOLUME: 2.0 PRESENTATION: Cephalic HEART RATE: 142.9 bpm bpm. AMNIOTIC FLUID VOLUME: 12.7 cm GESTATIONAL AGE: 37 weeks 6 days CONCLUSION: Total biophysical profile score 8.0. Electronically authenticated by: TEAGAN ENRIQUE Date: 2022-08-17 06:47 Normal [facility] US PREG BIOPHY W NON STRESSo n [...] by: LEE CLAY Date: 2022-08-15 16:37 Normal [facility] US PREG UMBILICAL ARTERYon 1 10-15-2021 PREG UMBILICAL ARTERY EXAM: US PREG UMBILICAL ARTERY HISTORY: [id number] baby EXAMINATION: US PREG UMBILICAL ARTERY HISTORY: [id number] baby COMPARISON: No relevant comparison available. TECHNIQUE: [...] by: LEE CLAY Date: 2022-08-15 16:55 Normal [facility] US PREG BIOPHY W NON STRESSo n [...] by: LEE CLAY Date: 2022-08-08 16:59 Normal [facility] US PREG UMBILICAL ARTERYon 1 10-08-2021 US PREG UMBILICAL ARTERY EXAM: US PREG UMBILICAL ARTERY HISTORY: [id number] baby COMPARISON: 08/01/2022 TECHNIQUE: Grayscale, color and [...] LEE CLAY Date: 2022-08-08 17:03 Normal [facility] BUNon 08-05-2022 Urea nitrogen [Mass/Vol] 11.0 mg/dL Normal 7.0-18.0 [facility] Comment on above: Performed By: #### N BOX #### [facility] [address] [place] [address] Dr. Valerio Alexis CBC AUTO DIFFon 08-05-2022 BASO # 0.0 103/ul Normal 0.0-0.1 [facility] Comment on above: Performed By: #### N BOX #### [facility] [address] [place] [address] Dr. Valerio Alexis Basophils/100 WBC (Bld) 0.3 % Normal 0.2-2.0 [facility] Comment on above: Performed By: #### N BOX #### [facility] [address] [place] [address] Dr. Valerio Alexis EO # 0.0 103/ul Normal 0.0-0.7 [facility] Comment on above: Performed By: #### N BOX #### [facility] [address] [place] [address] Dr. Valerio Alexis Eosinophils/100 WBC (Bld) 0.3 % Critically low 0.9-7.0 [facility] Comment on above: Performed By: #### N BOX #### [facility] [address] [place] [address] Dr. Valerio Alexis Erythrocyte distribution width (RBC) [Ratio] 12.9 % Normal 11.0-15.0 [facility] Comment on above: Performed By: #### N BOX #### [facility] [address] [place] [address] Dr. Valerio Alexis Hematocrit (Bld) [Volume fraction] 33.3 % Critically low 36.0-48.0 [facility] Comment on above: Performed By: #### N BOX #### [facility] [address] [address] [address] Valerio Alexis Hemoglobin (Bld) [Mass/Vol] 11.0 g/dL Critically low 12.0-16.0 [facility] Comment on above: Performed By: #### N BOX #### [facility] [address] [address] [address] Valerio Alexis IG # 0.14 10e3/ul Critically high 0.00-0.03 [facility] Comment on above: Performed By: #### N BOX #### [facility] [address] [address] [address] Valerio Alexis IG % 0.9 % Critically high 0.0-0.5 [facility] Comment on above: Performed By: #### N BOX #### [facility] [address] [address] [address] Valerio Alexis LYMPH # 1.4 103/ul Normal 1.2-3.8 [facility] Comment on above: Performed By: #### N BOX #### [facility] [address] [address] [address] Valerio Alexis Lymphocytes/100 WBC (Bld) 8.8 % Critically low 20.5-60.0 [facility] Comment on above: Performed By: #### N BOX #### [facility] [address] [place] [address] Dr. Valerio Alexis MANUAL DIFF REQ NO Normal [facility] Comment on above: Performed By: #### N BOX #### [facility] [address] [address] [address] Valerio Alexis MCH (RBC) [Entitic mass] 27.8 pg Normal 26.7-34.0 [facility] Comment on above: Performed By: #### N BOX #### [facility] [address] [address] [address] Valerio Alexis MCHC (RBC) [Mass/Vol] 33.0 g/dL Normal 29.9-35.2 [facility] Comment on above: Performed By: #### N BOX #### [facility] [address] [address] [address] Valerio Alexis MCV (RBC) [Entitic vol] 84.3 fL Normal 81.0-99.0 [facility] Comment on above: Performed By: #### N BOX #### [facility] [address] [place] [address] Dr. Valerio Alexis MONO # 1.1 103/ul Critically high 0.3-0.8 [facility] Comment on above: Performed By: #### N BOX #### [facility] [address] [place] [address] Dr. Valerio Alexis Monocytes/100 WBC (Bld) 7.0 % Normal 1.7-12.0 [facility] Comment on above: Performed By: #### N BOX #### [facility] [address] [place] [address] Dr. Valerio Alexis NEUT # 13.1 103/ul Critically high 1.4-6.5 [facility] Comment on above: Performed By: #### N BOX #### [facility] [address] [place] [address] Dr. Valerio Alexis Neutrophils/100 WBC (Bld) 82.7 % Critically high 43.0-75.0 [facility] Comment on above: Performed By: #### N BOX #### [facility] [address] [place] [address] Dr. Valerio Alexis Platelet mean volume (Bld) [Entitic vol] 10.8 fL Normal 9.5-13.5 [facility] Comment on above: Performed By: #### N BOX #### [facility] [address] [place] [address] Dr. Valerio Alexis PLT 202 103/ul Normal 150-450 [facility] Comment on above: Performed By: #### N BOX #### [facility] [address] [place] [address] Dr. Valerio Alexis RBC 3.95 106/ul Critically low 4.20-5.40 [facility] Comment on above: Performed By: #### N BOX #### [facility] [address] [place] [address] Dr. Valerio Alexis WBC 15.9 103/ul Critically high 4.0-11.0 [facility] Comment on above: Performed By: #### N BOX #### [facility] [address] [place] [address] Dr. Valerio Alexis CREATININEon 08-05-2022 Creatinine [Mass/Vol] 0.64 mg/dL Normal 0.55-1.02 [facility] Comment on above: Performed By: #### N BOX #### [facility] [address] [place] [address] Dr. Valerio Alexis EGFR-AF [place]I >60 Normal >=60 [facility] Comment on above: Performed By: #### N BOX #### [facility] [address] [place] [address] Dr. Valerio Alexis EGFR-NON AF [place] >60 Normal >=60 [facility] Comment on above: Performed By: #### N BOX #### [facility] [address] [place] [address] Dr. Valerio Alexis CULTURE URINEon 08-05-2022 CULTURE URINE Culture Observations: LIGHT GROWTH OF MIXED GENITAL RICK. NO POTENTIAL PATHOGENS SEEN. Normal [facility] Comment on above: Performed By: #### N BOX #### [facility] [address] [place] [address] Dr. Valerio Alexis UA (CLEAN/CATCH) FRONT DESK COORDINATOR/MICRO I F IND.on 08-05-2022 Bilirubin Ql (U) Negative Normal NEGATIVE [facility] Comment on above: Performed By: #### N BOX #### [facility] [address] [place] [address] Dr. Valerio Alexis Clarity (U) CLEAR Normal CLEAR [facility] Comment on above: Performed By: #### N BOX #### [facility] [address] [place] [address] Dr. Valerio Alexis Color (U) LT. YELLOW Normal YELLOW [facility] Comment on above: Performed By: #### N BOX #### [facility] [address] [place] [address] Dr. Valerio Alexis Glucose Ql (U) Negative Normal NEGATIVE [facility] Comment on above: Performed By: #### N BOX #### [facility] [address] [place] [address] Dr. Valerio Alexis Hemoglobin Ql (U) LARGE Abnormal NEGATIVE [facility] Comment on above: Performed By: #### N BOX #### [facility] [address] [place] [address] Dr. Valerio Alexis Ketones Ql (U) Negative Normal NEGATIVE [facility] Comment on above: Performed By: #### N BOX #### [facility] [address] [place] [address] Dr. Valerio Alexis LEUKOCYTES SMALL Abnormal NEGATIVE [facility] Comment on above: Performed By: #### N BOX #### [facility] [address] [place] [address] Dr. Valerio Alexis Nitrite Ql (U) Positive Abnormal NEGATIVE [facility] Comment on above: Performed By: #### N BOX #### [facility] [address] [place] [address] Dr. Valerio Alexis pH (U) 6.5 [pH] Normal 5-9 [facility] Comment on above: Performed By: #### N BOX #### [facility] [address] [place] [address] Dr. Valerio Alexis SPEC GRAVITY 1.020 Normal 1.005-<=1.025 [facility] Comment on above: Performed By: #### N BOX #### [facility] [address] [place] [address] Dr. Valerio Alexis UA PROTEIN 30 mg/dl Abnormal NEGATIVE/ TRACE [facility] Comment on above: Performed By: #### N BOX #### [facility] [address] [place] [address] Dr. Valerio Alexis UR MICRO IND INDICATED Normal [facility] Comment on above: Performed By: #### N BOX #### [facility] [address] [place] [address] Dr. Valerio Alexis Urobilinogen Qn (U) 0.2 {Nicolas'U}/dL Normal 0.2 - 1. 0 [facility] Comment on above: Performed By: #### N BOX #### [facility] [address] [place] [address] Dr. Valerio Alexis URINE MICROSCOPIC ONLYon BACTERIA TRACE Abnormal NONE SEEN [facility] Comment on above: Performed By: #### N BOX #### [facility] [address] [place] [address] Dr. Valerio Alexis Bacteria identified Cx Nom (U) INDICATED Normal [facility] Comment on above: Performed By: #### N BOX #### [facility] [address] [place] [address] Dr. Valerio Alexis CAST NONE SEEN Normal NONE SEEN [facility] Comment on above: Performed By: #### N BOX #### [facility] [address] [place] [address] Dr. Valerio Alexis Crystals LM Nom (Urine sed) NONE SEEN Normal NONE SEEN [facility] Comment on above: Performed By: #### N BOX #### [facility] [address] [place] [address] Dr. Valerio Alexis Epithelial cells LM Ql (Urine sed) RARE Normal NONE SEEN /RARE [facility] Comment on above: Performed By: #### N BOX #### [facility] [address] [place] [address] Dr. Valerio Alexis MUCOUS NONE SEEN Normal NONE SEEN [facility] Comment on above: Performed By: #### N BOX #### [facility] [address] [place] [address] Dr. Valerio Alexis RBC NONE SEEN Abnormal 0-2 [facility] Comment on above: Performed By: #### N BOX #### [facility] [address] [place] [address] Dr. Valerio Alexis WBC 5-10 Abnormal NONE SEEN [facility] Comment on above: Performed By: #### N BOX #### [facility] [address] [place] [address] Dr. Valerio Alexis GROUP B STREP CULTUREon S. agalactiae Ag Ql (Unsp spec) Culture Observations: NEGATIVE FOR GROUP B STREPTOCOCCUS. Normal [facility] Comment on above: Performed By: #### G BSCX #### [facility] [address] [address] [address] Valerio Alexis US PREG BIOPHY W [...] by: TEAGAN ENRIQUE Date: 2022-08-02 05:48 Normal [facility] US PREG UMBILICAL ARTERYon 1 10-02-2021 US PREG UMBILICAL ARTERY EXAMINATION: US PREG UMBILICAL ARTERY HISTORY: Xmuer-kro-uvniy baby COMPARISON: Ultrasound umbilical artery 07/28/2022 TECHNIQUE: [...] TEAGAN ENRIQUE Date: 2022-08-02 05:54 Normal [facility] US PREG BIOPHYSICAL NO NSTon [...] by: TEAGAN ENRIQUE Date: 2022-07-28 16:40 Normal [facility] US PREG GROWTHon 07-28-2022 US PREG GROWTH [...] 3. Dr. Harding was notified by the tank storage supervisor at time of imaging. Electronically authenticated by: TEAGAN ENRIQUE Date: 2022-07-28 16:48 Normal [facility] US PREG UMBILICAL ARTERYon 1 US PREG [...] by: TEAGAN ENRIQUE Date: 2022-07-28 13:25 Normal [facility] US PREG BIOPHY W NON STRESSo n [...] by: TEAGAN ENRIQUE Date: 2022-07-26 16:06 Normal [facility] US PREG BIOPHY W NON STRESS EXAMINATION: [...] by: LEE CLAY Date: 2022-07-26 07:14 Normal [facility] US PREG BIOPHY W NON STRESSo n [...] by: TEAGAN ENRIQUE Date: 2022-07-19 20:21 Normal [facility] US PREG GROWTHon 07-13-2022 US PREG GROWTH [...] Dr. Harding notified of low weight by tank storage supervisor at time of imaging. Electronically authenticated by: TEAGAN ENRIQUE Date: 2022-07-12 22:01 Normal [facility] GLUCOSE - 1HRon 05-31-2022 Glucose [Mass/Vol] 110 mg/dL Critically high 74-106 [facility] Comment on above: Performed By: #### R PRQ #### [facility] [address] [address] [address] Valerio Alexis HEMOGRAM AND PLATELon 2021 Hematocrit (Bld) [Volume fraction] 31.6 % Critically low 36.0-48.0 [facility] Comment on above: Performed By: #### H H #### [facility] [address] [address] [address] Valerio Alexis Hemoglobin (Bld) [Mass/Vol] 10.7 g/dL Critically low 12.0-16.0 [facility] Comment on above: Performed By: #### H H #### [facility] [address] [address] [address] Valerio Alexis MCH (RBC) [Entitic mass] 29.7 pg Normal 26.7-34.0 [facility] Comment on above: Performed By: #### H H #### [facility] [address] [address] [address] Valerio Alexis MCHC (RBC) [Mass/Vol] 33.9 g/dL Normal 29.9-35.2 [facility] Comment on above: Performed By: #### H H #### [facility] [address] [place] [address] Dr. Valerio Alexis MCV (RBC) [Entitic vol] 87.8 fL Normal 81.0-99.0 [facility] Comment on above: Performed By: #### H H #### [facility] [address] [place] [address] Dr. Valerio Alexis PLT 179 103/ul Normal 150-450 [facility] Comment on above: Performed By: #### H H #### [facility] [address] [place] [address] Dr. Valerio Alexis RBC 3.60 106/ul Critically low 4.20-5.40 [facility] Comment on above: Performed By: #### H H #### [facility] [address] [place] [address] Dr. Valerio Alexis WBC 8.9 103/ul Normal 4.0-11.0 [facility] Comment on above: Performed By: #### H H #### [facility] [address] [place] [address] Dr. Valerio Alexis CHLAMYDIA/GONOCOCCUS CHULA (SW AB/URINE/PAPon 05-21-2022 Chlamydia trachomatis, CHULA Negative Normal Negative [facility] Comment on above: Performed By: #### R PRQ #### [facility] [address] [place] [address] Dr. Valerio Alexis Neisseria gonorrhoeae, CHULA Negative Normal Negative [facility] Comment on above: Performed By: #### R PRQ #### [facility] [address] [place] [address] Dr. Valerio Alexis VAGINITIS/VAGINOSIS DNA PROB Dane 05-21-2022 Ashley species Negative Normal Negative [facility] Comment on above: Performed By: #### H IV12 #### [facility] [address] [place] [address] Dr. Valerio Alexis Gardnerella vaginalis Positive Abnormal Negative [facility] Comment on above: Performed By: #### H IV12 #### [facility] [address] [place] [address] Dr. Valerio Alexis Trichomonas vaginalis Negative Normal Negative [facility] Comment on above: Performed By: #### H IV12 #### [facility] [address] [place] [address] Dr. Valerio Alexis HEPATITIS PANEL, ACUTEon HBsAg Screen Negative Normal Negative [facility] Comment on above: Performed By: #### R PRQ #### [facility] [address] [place] [address] Dr. Valerio Alexis HCV AB <0.1 Normal 0.0-0.9 [facility] Comment on above: Performed By: #### R PRQ #### [facility] [address] [place] [address] Dr. Valerio Alexis Hep A Ab, IgM Negative Normal Negative [facility] Comment on above: Performed By: #### R PRQ #### [facility] [address] [place] [address] Dr. Valerio Alexis Hep B Core Ab, IgM Negative Normal Negative [facility] Comment on above: Performed By: #### R PRQ #### [facility] [address] [place] [address] Dr. Valerio Alexis Interpretation: Comment Normal [facility] Comment on above: Result Comment: Nega tive Not infected with HCV, unless recent infection is suspected or other evidence exists to indicate HCV infection. Performed By: #### R PRQ #### [facility] [address] [place] [address] Dr. Valerio Alexis HIV 1 AND 2 WITH REFLEXon HIV Screen 4th Generation wRfx Non-Reactive Normal Non Reactive [facility] Comment on above: Result Comment: HIV Negative HIV-1/HIV-2 antibodies and HIV-1 p24 antigen were NOT detected. There is no laboratory evidence of HIV infection. Performed By: #### N BOX #### [facility] Laboratory [address] [place] [address] Dr. Valerio Alexis RPR QUANTon 05-20-2022 Rapid Plasma Reagin, Quant Non-Reactive Normal NonRea<1:1 [facility] Comment on above: Result Comment: Plea se Note: This test does not meet current guidelines for screening and diagnosis of syphilis. This test is intended for following treatment response in patients being treated for syphilis infection. To screen for syphilis infection, a reflex cascade that includes both RPR and a treponema-specific assay should be utilized, such as Treponema pallidum (Syphilis) Screening [place] (915681) or Rapid Plasma Reagin (RPR) Test With Reflex to Quantitative RPR and Confirmatory Treponema pallidum Antibodies (395211). Performed By: #### R PRQ #### [facility] [address] [place] [address] Dr. Valerio Alexis CULTURE URINEon 05-19-2022 CULTURE URINE Culture Observations: HEAVY GROWTH OF MIXED GENITAL RICK. NO POTENTIAL PATHOGENS SEEN. Normal [facility] Comment on above: Performed By: #### U RCX #### [facility] [address] [place] [address] Dr. Valerio Alexis CULTURE URINEon 05-18-2022 CULTURE URINE Culture Observations: LIGHT GROWTH OF MIXED GENITAL RICK. NO POTENTIAL PATHOGENS SEEN. Normal [facility] Comment on above: Performed By: #### U RCX #### [facility] [address] [address] [address] Valerio Alexis AFP MATERNAL FOR SPINA BIFID Aon 04-30-2022 AFP MoM 1.13 Normal [facility] Comment on above: Performed By: #### R PRQ #### [facility] [address] [place] [address] Dr. Valerio Alexis AFP Value 94.7 ng/mL Normal [facility] Comment on above: Performed By: #### R PRQ #### [facility] [address] [place] [address] Dr. Valerio Alexis AFP, Serum for Spina Bifida Report Normal [facility] Comment on above: Performed By: #### R PRQ #### [facility] [address] [place] [address] Dr. Valerio Alexis Comment Comment Normal [facility] Comment on above: Result Comment: Willa Domínguez, Ph.D., [facility] Director . References: Available Upon Request. . Multiples Of Median Cutoffs For AFP Elevations Cuenca 2.5 Black 2.8 IDD 2.0 Twins 4.5 Abbreviation Definitions IDD - Insulin Dep Diabetes OSBR - Open Spina Bifida Risk . For further inquiries contact [facility] at [phone]. . This test was developed and its performance characteristics determined by [employer]. It has not been cleared or approved by the Food and Drug Administration. Performed By: #### R PRQ #### [facility] [address] [place] [address] Dr. Valerio Georges Age Collection Date 20.9 weeks Normal [facility] Comment on above: Performed By: #### R PRQ #### [facility] [address] [place] [address] Dr. Valerio Alexis Gestat, Age Based on JOSE [facility] Comment on above: Result Comment: 08/04 Recalculations are not recommended when gestational dating by LMP and ultrasound are within 10 days. Performed By: #### R PRQ #### [facility] [address] [place] [address] Dr. Valerio Alexis Insulin Dep Diabetes No Normal [facility] Comment on above: Performed By: #### R PRQ #### [facility] [address] [place] [address] Dr. Valerio Alexis Interpretation Comment Normal [facility] Comment on above: Result Comment: Inte [...] Customer Services to discuss available options. The [employer] recommends amniocentesis be offered to women age 35 and older. Performed By: #### R PRQ #### [facility] [address] [place] [address] Dr. Valerio Alexis [age] Normal [facility] Comment on above: Performed By: #### R PRQ #### [facility] [address] [address] [address] Valerio Alexis Multiple Gestation No Normal [facility] Comment on above: Performed By: #### R PRQ #### [facility] [address] [address] [address] Valerio Alexis OSBR Risk 1 IN 8106 Normal [facility] Comment on above: Performed By: #### R PRQ #### [facility] [address] [address] [address] Valerio Alexis PDF . [facility] Comment on above: Performed By: #### R PRQ #### [facility] [address] [address] [address] Valerio Alexis Race [facility] Comment on above: Performed By: #### R PRQ #### [facility] [address] [address] [address] Valerio Alexis Test Results: Negative Normal [facility] Comment on above: Performed By: #### R PRQ #### [facility] [address] [address] [address] Valeiro Alexis US PREG ANATOMY SINGLEon US PREG [...] TEAGAN ENRIQUE Date: 2022-04-20 20:07 Normal [facility] CHLAMYDIA/GONOCOCCUS CHULA ( AB/URINE/PAPon 03-26-2022 Chlamydia trachomatis, CHULA Negative Normal Negative [facility] Comment on above: Performed By: #### R PRQ #### [facility] [address] [place] [address] Dr. Valerio Alexis Neisseria gonorrhoeae, CHULA Negative Normal Negative [facility] Comment on above: Performed By: #### R PRQ #### [facility] [address] [address] [address] Valerio Alexis VAGINITIS/VAGINOSIS DNA PROB Dane 03-25-2022 Ashley species Positive Abnormal Negative [facility] Comment on above: Performed By: #### R PRQ #### [facility] [address] [address] [address] Valerio Alexis Gardnerella vaginalis Positive Abnormal Negative [facility] Comment on above: Performed By: #### R PRQ #### [facility] [address] [address] [address] Valerio Alexis Trichomonas vaginalis Negative Normal Negative [facility] Comment on above: Performed By: #### R PRQ #### [facility] [address] [place] [address] Dr. Valerio Alexis Covid-19 PCR (CVDTB)on 01-31 SARS-CoV-2 (COVID-19) RNA CHULA+probe Ql (Unsp spec) Detected Critically abnormal NOT DETECTED [facility] Comment on above: Result Comment: This test is not yet approved or cleared by the [place] FDA. When there are no FDA-approved or cleared tests available, and other criteria are met, FDA can make tests available under an emergency access mechanism called an Emergency Use Authorization (EUA). The EUA for this test is supported by the Application Support Engineer of Health and Human Service's declaration that [...] used). Performed By: #### C VDTB #### [facility] [address] [place] [address] Dr. Valerio Alexis US PREG TVon 02-16-2022 [...] TEAGAN ENRIQUE Date: 2022-02-16 13:14 Normal [facility] CHEMISTRYOrdered By: Roberto Garsia on 02-15-2022 HCG.beta subunit Qn 294312 m[IU]/mL High 1 - 3 mIU/m L [facility] Chem S HEP B SURFACE ANTIGEN SCREEN on 02-12-2022 HBsAg Screen Negative Normal Negative [facility] Comment on above: Performed By: #### H H #### [facility] [address] [address] [address] Valerio Alexis HEPATITIS C VIRUS AB W/ REFL EX QUANTon 02-12-2022 HCV AB 0.1 s/co ratio Normal 0.0-0.9 [facility] Comment on above: Performed By: #### H H #### [facility] [address] [place] [address] Dr. Valerio Alexis Interpretation: Comment Normal [facility] Comment on above: Result Comment: Nega tive Not infected with HCV, unless recent infection is suspected or other evidence exists to indicate HCV infection. Performed By: #### H H #### [facility] [address] [place] [address] Dr. Valerio Alexis HIV 1 AND 2 WITH REFLEXon HIV Screen 4th Generation wRfx Non-Reactive Normal Non Reactive [facility] Comment on above: Result Comment: HIV Negative HIV-1/HIV-2 antibodies and HIV-1 p24 antigen were NOT detected. There is no laboratory evidence of HIV infection. Performed By: #### H IV12 #### [facility] [address] [place] [address] Dr. Valerio Alexis RPR QUANTon 02-12-2022 Rapid Plasma Reagin, Quant Non-Reactive Normal NonRea<1:1 [facility] Comment on above: [...] utilized, such as Treponema pallidum (Syphilis) Screening [place] (088804) or Rapid Plasma Reagin (RPR) Test With Reflex to Quantitative RPR and Confirmatory Treponema pallidum Antibodies (250016). Performed By: #### U RCX #### [facility] [address] [place] [address] Dr. Valerio Alexis RUBELLA AB IGGon 02-12-2022 Rubella Antibodies, IgG 1.88 index Normal Immune >0.99 [facility] Comment on above: Result Comment: Non- immune <0.90 Equivocal 0.90 - 0.99 Immune >0.99 Performed By: #### H H #### [facility] [address] [address] [address] Valerio Alexis CBC AUTO DIFFon 02-11-2022 BASO # 0.0 103/ul Normal 0.0-0.1 [facility] Comment on above: Performed By: #### H H #### [facility] [address] [address] [address] Valerio Alexis Basophils/100 WBC (Bld) 0.3 % Normal 0.2-2.0 [facility] Comment on above: Performed By: #### H H #### [facility] [address] [address] [address] Valerio Alexis EO # 0.1 103/ul Normal 0.0-0.7 [facility] Comment on above: Performed By: #### H H #### [facility] [address] [place] [address] Dr. Valerio Alexis Eosinophils/100 WBC (Bld) 0.9 % Normal 0.9-7.0 [facility] Comment on above: Performed By: #### H H #### [facility] [address] [place] [address] Dr. Valerio Alexis Erythrocyte distribution width (RBC) [Ratio] 12.8 % Normal 11.0-15.0 [facility] Comment on above: Performed By: #### H H #### [facility] [address] [place] [address] Dr. Valerio Alexis Hematocrit (Bld) [Volume fraction] 37.6 % Normal 36.0-48.0 [facility] Comment on above: Performed By: #### H H #### [facility] [address] [place] [address] Dr. Valerio Alexis Hemoglobin (Bld) [Mass/Vol] 12.5 g/dL Normal 12.0-16.0 [facility] Comment on above: Performed By: #### H H #### [facility] [address] [address] [address] Valerio Alexis IG # 0.04 10e3/ul Critically high 0.00-0.03 [facility] Comment on above: Performed By: #### H H #### [facility] [address] [place] [address] Dr. Valerio Alexis IG % 0.6 % Critically high 0.0-0.5 [facility] Comment on above: Performed By: #### H H #### [facility] [address] [place] [address] Dr. Valerio Alexis LYMPH # 1.5 103/ul Normal 1.2-3.8 [facility] Comment on above: Performed By: #### H H #### [facility] [address] [place] [address] Dr. Valerio Alexis Lymphocytes/100 WBC (Bld) 21.9 % Normal 20.5-60.0 [facility] Comment on above: Performed By: #### H H #### [facility] [address] [place] [address] Dr. Valerio Alexis MANUAL DIFF REQ NO Normal [facility] Comment on above: Performed By: #### H H #### [facility] [address] [place] [address] Dr. Valerio Alexis MCH (RBC) [Entitic mass] 29.0 pg Normal 26.7-34.0 [facility] Comment on above: Performed By: #### H H #### [facility] [address] [place] [address] Dr. Valerio Alexis MCHC (RBC) [Mass/Vol] 33.2 g/dL Normal 29.9-35.2 [facility] Comment on above: Performed By: #### H H #### [facility] [address] [place] [address] Dr. Valerio Alexis MCV (RBC) [Entitic vol] 87.2 fL Normal 81.0-99.0 [facility] Comment on above: Performed By: #### H H #### [facility] [address] [place] [address] Dr. Valerio Alexis MONO # 0.5 103/ul Normal 0.3-0.8 [facility] Comment on above: Performed By: #### H H #### [facility] [address] [place] [address] Dr. Valerio Alexis Monocytes/100 WBC (Bld) 6.7 % Normal 1.7-12.0 [facility] Comment on above: Performed By: #### H H #### [facility] [address] [place] [address] Dr. Valerio Alexis NEUT # 4.9 103/ul Normal 1.4-6.5 [facility] Comment on above: Performed By: #### H H #### [facility] [address] [place] [address] Dr. Valerio Alexis Neutrophils/100 WBC (Bld) 69.6 % Normal 43.0-75.0 [facility] Comment on above: Performed By: #### H H #### [facility] [address] [place] [address] Dr. Valerio Alexis Platelet mean volume (Bld) [Entitic vol] 10.8 fL Normal 9.5-13.5 [facility] Comment on above: Performed By: #### H H #### [facility] [address] [place] [address] Dr. Valerio Alexis PLT 183 103/ul Normal 150-450 [facility] Comment on above: Performed By: #### H H #### [facility] [address] [place] [address] Dr. Valerio Alexis RBC 4.31 106/ul Normal 4.20-5.40 [facility] Comment on above: Performed By: #### H H #### [facility] [address] [place] [address] Dr. Valerio Alexis WBC 7.0 103/ul Normal 4.0-11.0 [facility] Comment on above: Performed By: #### H H #### [facility] [address] [place] [address] Dr. Valerio Alexis CULTURE URINEon 02-11-2022 CULTURE URINE Culture Observations: NO GROWTH. Normal [facility] Comment on above: Performed By: #### U RCX #### [facility] [address] [place] [address] Dr. Valerio Alexis GLYCOHEMOGLOBIN A1Con 2021 ADA RECOMMENDATION SEE BELOW Normal [facility] Comment on above: Result Comment: ADA RECOMMENDED LIMIT 4.0 - 6.0 ADA THERAPEUTIC TARGET < 7.0 ACTION SUGGESTED > 7.0 Performed By: #### H H #### [facility] [address] [address] [address] Valerio Alexis Glucose [Mass/Vol] 88 mg/dL Normal [facility] Comment on above: Performed By: #### H H #### [facility] [address] [address] [address] Valerio Alexis HbA1c (Bld) [Mass fraction] 4.7 % Normal 4.5-6.2 [facility] Comment on above: Performed By: #### H H #### [facility] [address] [address] [address] Valerio Alexis ASETR BOX TEST PT SEND OUTo n 02-11-2022 SENT TO REF LAB 02/11/2022 Normal [facility] Comment on above: Performed By: #### N BOX #### [facility] [address] [address] [address] Valerio Alexis TYPE AND SCREENon 02-11-2022 TYPE AND SCREEN Negative Normal [facility] Comment on above: Performed By: #### N BOX #### [facility] [address] [place] [address] Dr. Valerio Alexis US PREG TVon 01-26-2022 [...] by: TEAGAN ENRIQUE Date: 2022-01-26 09:46 Normal [facility] PROGRESSon 11-20-2019 PROGRESS HNO ID: [id number] Author: Jose Luis Cao (Od) Jose Enrique Service: ? Author Type: MACHINE OPERATOR ASSISTANT Type: Progress Notes Filed: 11/20/2019 4:36 PM [...] with all of its relevant components. Normal [facility] TSHon 06-11-2018 Thyrotropin Qn 3.104 uIU/mL Normal 0.350-5.500 [facility] Comment on above: Performed By: #### T SH ####[address] [phone] Comp Metabolic Panelon 06-09 Albumin mass conc 4.6 g/dL High 3.2-4.5 [facility] Comment on above: Performed By: #### C MP ####[address] [phone] ALP enzyme act/vol 75 U/L Normal 47-119 [facility] Comment on above: Performed By: #### C MP ####[address] [phone] ALT enzyme act/vol 11 U/L Normal 0-31 [facility] Comment on above: Performed By: #### C MP ####[address] [phone] AST enzyme act/vol 14 U/L Normal 0-31 [facility] Comment on above: Performed By: #### C MP ####[address] [phone] Bili,Total 0.8 mg/dl Normal 0.0-1.0 [facility] Comment on above: Result Comment: Gama ature : 1 Day 1.0-6.0 mg/dl 2 Day 6.0-8.0 mg/dl 3-5 Day 10.0-15.0 mg/dl Performed By: #### C MP ####[address] [phone] Calcium mass conc 9.8 mg/dL Normal 7.6-11.0 [facility] Comment on above: Performed By: #### C MP ####[address] [phone] Chloride molar conc 105 mmol/L Normal 96-108 [facility] Comment on above: Performed By: #### C MP ####[address] [phone] CO2 molar conc 26.2 mmol/L Normal 22.0-29.0 [facility] Comment on above: Performed By: #### C MP ####[address] [phone] Creatinine mass conc 0.82 mg/dL Normal 0.50-1.00 [facility] Comment on above: Result Comment: Gama ature 0.3-1.0 mg/dL Performed By: #### C MP ####[address] [phone] Glucose mass conc 89 mg/dL Normal 70-99 [facility] Comment on above: Result Comment: Henry simental for Diagnosis of Diabetes(Effective 03/07/11):Fasting specimen (no caloric intake for at least 8 hours). <100 mg/dl Normal 100-125 mg/dl Increased Risk for Diabetes >125 mg/dl Diagnostic for DiabetesRandom Glucose (any time of day without regard to last meal). >=200 mg/dl plus Classic Symptoms of Diabetes Performed By: #### C MP ####[address] [phone] Potassium molar conc 3.8 mmol/L Normal 3.3-5.1 [facility] Comment on above: Performed By: #### C MP ####[address] [phone] Protein mass conc 8.1 g/dL Normal 5.9-8.4 [facility] Comment on above: Performed By: #### C MP ####[address] [phone] Sodium molar conc 138 mmol/L Normal 133-145 [facility] Comment on above: Performed By: #### C MP ####[address] [phone] Urea nitrogen mass conc 10 mg/dL Normal 4-19 [facility] Comment on above: Performed By: #### C MP ####[address] [phone] Complete Blood Counton 06-09 Differential Complete Manual Normal [facility] Comment on above: Performed By: #### C BC ####[address] [phone] Erythrocyte distribution width Auto Ratio (RBC) 12.7 % Normal 0.0-14.4 [facility] Comment on above: Performed By: #### C BC ####[address] [phone] Hematocrit Auto Volume Fraction (Bld) 45.1 % Normal 37.0-46.0 [facility] Comment on above: Performed By: #### C BC ####[address] [phone] Hemoglobin mass conc (Bld) 15.2 g/dL High 12.0-15.0 [facility] Comment on above: Performed By: #### C BC ####[address] [phone] Immature granulocytes/100 WBC (Bld) 0.30 % Normal [facility] Comment on above: Result Comment: Sherice ture Granulocyte Percent includes promyelocytes, myelocytes,and metamyelocytes. IG% > 1.0 indicates a left shift ispresent. With automated differentials, bands are includedin the neutrophil count and not in the Immature GranulocytePercent. Performed By: #### C BC ####[address] [phone] MCH Auto Entitic mass (RBC) 29.2 pg Normal 25.0-35.0 [facility] Comment on above: Performed By: #### C BC ####[address] [phone] MCHC Auto mass conc (RBC) 33.7 % Normal 31.0-37.0 [facility] Comment on above: Performed By: #### C BC ####[address] [phone] MCV Auto Entitic volume (RBC) 86.6 fL Normal 78.0-96.0 [facility] Comment on above: Performed By: #### C BC ####[address] [place] [phone] Nucleated RBC/100 WBC Ratio (Bld) 0.0 % Normal -1.0-0.0 [facility] Comment on above: Performed By: #### C BC ####[address] [phone] Platelet mean volume Auto Entitic volume (Bld) 10.5 fL Normal [facility] Comment on above: Result Comment: MPV is plateletrange and agedependent Performed By: #### C BC ####[address] [phone] Platelets Auto #/vol (Bld) 200 10*3/uL Normal 150-450 [facility] Comment on above: Performed By: #### C BC ####[address] [phone] RBC Auto #/vol (Bld) 5.21 10E12/L High 4.10-4.80 [facility] Comment on above: Performed By: #### C BC ####[address] [phone] WBC Auto #/vol (Bld) 9.0 10*3/uL Normal 4.5-13.0 [facility] Comment on above: Performed By: #### C BC ####[address] [phone] Manual Differentialon 2017 Absolute Neutrophil No. 6.6 Normal [facility] Comment on above: Performed By: #### M DIFF ####[address] [phone] Atypical Lymphocytes 7 % Normal 0-8 [facility] Comment on above: Performed By: #### M DIFF ####[address] [phone] Band Neutrophils 0 % Low 5-11 [facility] Comment on above: Performed By: #### M DIFF ####[address] [phone] Cell Morphology Normal Normal [facility] Comment on above: Performed By: #### M DIFF ####[facility] of [address] [phone] Lymphocytes 18 % Low 25-45 [facility] Comment on above: Performed By: #### M DIFF ####[facility] of [address] [phone] Metamyelocytes 0 % Normal 0-0 [facility] Comment on above: Performed By: #### M DIFF ####[address] [phone] Monocytes 2 % Low 3-6 [facility] Comment on above: Performed By: #### M DIFF ####[address] [phone] Myelocytes 0 % Normal 0-0 [facility] Comment on above: Performed By: #### M DIFF ####[facility] of [address] [phone] Promyelocytes 0 % Normal 0-0 [facility] Comment on above: Performed By: #### M DIFF ####[facility] of [address] [phone] Segmented Neutrophils 73 % High 34-64 [facility] Comment on above: Performed By: #### M DIFF ####[facility] of [address] [phone] eGFRon 06-09-2018 GFR/1.73 sq M.predicted MDRD vol rate/area 79.58 Normal [facility] Comment on above: Result Comment: Refe rence range:> 3 months:>90 ml/min/1.73m^2Ref. Range change [id number]/26/2018 Performed By: #### E GFR ####[facility] [place] [address] [phone] Vital Signs Date Time Vital Sign Value Performing Clinician Facility 10-11-2024 09:16-0500 Body height 157.2 cm Lee Lea MD Work Phone: [facility] 10-11-2024 09:16-0500 Body mass index (BMI) [Ratio] 24.23 kg/m2 Lee Lea MD Work Phone: [facility] 10-11-2024 09:16-0500 Body weight 59.88 kg Lee Lea MD Work Phone: [facility] 10-11-2024 09:16-0500 Diastolic blood pressure 78 mm[Hg] Lee Lea MD Work Phone: [facility] 10-11-2024 09:16-0500 Heart rate 89 /min Lee Lea MD Work Phone: [facility] 10-11-2024 09:16-0500 Respiratory rate 18 /min Lee Lea MD Work Phone: [facility] 10-11-2024 09:16-0500 Systolic blood pressure 114 mm[Hg] Lee Lea MD Work Phone: [facility] 10-10-2024 10:34-0500 Body mass index (BMI) [Ratio] 24.14 kg/m2 Nasir Mehdi DO Work Phone: [facility] 10-10-2024 10:34-0500 Body weight 59.88 kg Nasir Mehdi DO Work Phone: [facility] 10-10-2024 10:34-0500 Diastolic blood pressure 68 mm[Hg] Nasir Mehdi DO Work Phone: [facility] 10-10-2024 10:34-0500 Systolic blood pressure 110 mm[Hg] Nasir Mehdi DO Work Phone: [facility] 09-26-2024 11:14-0500 Body mass index (BMI) [Ratio] 24.11 kg/m2 Nasir Mehdi DO Work Phone: [facility] 09-26-2024 11:14-0500 Body weight 59.78 kg Nasir Mehdi DO Work Phone: [facility] 09-26-2024 11:14-0500 Diastolic blood pressure 60 mm[Hg] Nasir Mehdi DO Work Phone: [facility] 09-26-2024 11:14-0500 Systolic blood pressure 102 mm[Hg] Nasir Mehdi DO Work Phone: [facility] 09-19-2024 08:40-0500 Body mass index (BMI) [Ratio] 23.8 kg/m2 Renata Stonewall PA Work Phone: [facility] 09-19-2024 08:40-0500 Body weight 59.02 kg Renata Stonewall PA Work Phone: [facility] 09-19-2024 08:40-0500 Diastolic blood pressure 60 mm[Hg] Renata Stonewall PA Work Phone: [facility] 09-19-2024 08:40-0500 Systolic blood pressure 100 mm[Hg] Renata Stonewall PA Work Phone: [facility] 08-26-2024 14:45-0500 Body mass index (BMI) [Ratio] 23.05 kg/m2 Renata Stonewall PA Work Phone: [facility] 08-26-2024 14:45-0500 Body weight 57.15 kg Renata Vineet PA Work Phone: [facility] 08-26-2024 14:45-0500 Diastolic blood pressure 62 mm[Hg] Renata Vineet PA Work Phone: [facility] 08-26-2024 14:45-0500 Systolic blood pressure 100 mm[Hg] Renata Stonewall PA Work Phone: [facility] 08-20-2024 14:06-0500 Body mass index (BMI) [Ratio] 23.05 kg/m2 Virginia Royal PAINT PREP TECHNICIAN Work Phone: [facility] 08-20-2024 14:06-0500 Body temperature 96.91 [degF] Virginia Royal PAINT PREP TECHNICIAN Work Phone: [facility] 08-20-2024 14:06-0500 Body weight 57.15 kg Virginia Royal PAINT PREP TECHNICIAN Work Phone: [facility] 08-20-2024 14:06-0500 Diastolic blood pressure 76 mm[Hg] Virginia Royal PAINT PREP TECHNICIAN Work Phone: [facility] 08-20-2024 14:06-0500 Heart rate 97 /min Virginia Royal PAINT PREP TECHNICIAN Work Phone: [facility] 08-20-2024 14:06-0500 SaO2% (BldA) [Mass fraction] 98 % Virginia Royal PAINT PREP TECHNICIAN Work Phone: [facility] 08-20-2024 14:06-0500 Systolic blood pressure 124 mm[Hg] Virginia Royal PAINT PREP TECHNICIAN Work Phone: [facility] 08-13-2024 11:18-0500 Body mass index (BMI) [Ratio] 22.68 kg/m2 Renata MCNULTY Work Phone: [facility] 08-13-2024 11:18-0500 Body weight 56.25 kg Renata MCNULTY Work Phone: [facility] 08-13-2024 11:18-0500 Diastolic blood pressure 68 mm[Hg] Renata MCNULTY Work Phone: [facility] 08-13-2024 11:18-0500 Systolic blood pressure 110 mm[Hg] Renata MCNULTY Work Phone: [facility] 08-08-2024 12:03-0500 Heart rate 90 /min Virginia Royal PAINT PREP TECHNICIAN Work Phone: [facility] 08-08-2024 11:40-0500 Body height 157.5 cm Virginia Royal PAINT PREP TECHNICIAN Work Phone: [facility] 08-08-2024 11:40-0500 Body mass index (BMI) [Ratio] 22.64 kg/m2 Virginia Royal PAINT PREP TECHNICIAN Work Phone: [facility] 08-08-2024 11:40-0500 Body weight 56.16 kg Virginia Royal PAINT PREP TECHNICIAN Work Phone: [facility] 08-08-2024 11:40-0500 Diastolic blood pressure 72 mm[Hg] Virginia Royal PAINT PREP TECHNICIAN Work Phone: [facility] 08-08-2024 11:40-0500 SaO2% (BldA) [Mass fraction] 99 % Virginia Royal PAINT PREP TECHNICIAN Work Phone: [facility] 08-08-2024 11:40-0500 Systolic blood pressure 110 mm[Hg] Virginia Royal PAINT PREP TECHNICIAN Work Phone: [facility] 07-29-2024 14:52-0400 Body mass index (BMI) [Ratio] 22.5 kg/m2 Nasir Mehdi DO Work Phone: [facility] 07-29-2024 14:52-0400 Body weight 55.79 kg Nasir Mehdi DO Work Phone: [facility] 07-29-2024 14:52-0400 Diastolic blood pressure 70 mm[Hg] Nasir Mehdi DO Work Phone: [facility] 07-29-2024 14:52-0400 Systolic blood pressure 110 mm[Hg] Nasir Mehdi DO Work Phone: [facility] 07-03-2024 14:00-0400 Body mass index (BMI) [Ratio] 21.95 kg/m2 Renata MCNULTY Work Phone: [facility] 07-03-2024 14:00-0400 Body weight 54.43 kg Renata MCNULTY Work Phone: [facility] [email or web address] 07-03-2024 14:00-0400 Diastolic blood pressure 66 mm[Hg] Renata MCNULTY Work Phone: [facility] 07-03-2024 14:00-0400 Systolic blood pressure 100 mm[Hg] Renata MCNULTY Work Phone: [facility] 06-05-2024 10:31-0400 Body mass index (BMI) [Ratio] 21 kg/m2 Nasir Mehdi DO Work Phone: [facility] 06-05-2024 10:31-0400 Body weight 52.07 kg Nasir Mehdi DO Work Phone: [facility] 06-05-2024 10:31-0400 Diastolic blood pressure 68 mm[Hg] Nasir Mehdi DO Work Phone: [facility] 06-05-2024 10:31-0400 Systolic blood pressure 102 mm[Hg] Nasir Mehdi DO Work Phone: [facility] [email or web address] 07-20-2023 12:50-0400 Body height 157.48 cm Augusto Brewer Other [employer] Other 07-20-2023 12:50-0400 Body mass index (BMI) [Ratio] 18.47 kg/m2 Augusto Brewer Other [employer] Other 07-20-2023 12:50-0400 Body temperature 98.2 [degF] Augusto Brewer Other [employer] Other 07-20-2023 12:50-0400 Body weight 45.81 kg Augusto Brewer Other [employer] Other 07-20-2023 12:50-0400 Diastolic blood pressure 63 mm[Hg] Augusto Brewer Other [employer] Other 07-20-2023 12:50-0400 Respiratory rate 17 /min Augusto Brewer Other [employer] Other 07-20-2023 12:50-0400 SaO2% (BldA) [Mass fraction] 98 % Augusto Brewer Other [employer] Other 07-20-2023 12:50-0400 Systolic blood pressure 113 mm[Hg] Augusto Brewer Other [employer] Other 07-17-2023 09:40-0400 Body height 157.48 cm Mel Tomlinson Other [employer] Other 07-17-2023 09:40-0400 Body mass index (BMI) [Ratio] 18.65 kg/m2 Mel Crenshawmond Other [employer] Other 07-17-2023 09:40-0400 Body temperature 98.7 [degF] Mel Crenshawmond Other [employer] Other 07-17-2023 09:40-0400 Body weight 46.27 kg Mel Tomlinson Other [employer] Other 07-17-2023 09:40-0400 Diastolic blood pressure 70 mm[Hg] Mel Bushra Other [employer] Other 07-17-2023 09:40-0400 Respiratory rate 18 /min Mel Crenshawmond Other [employer] Other 07-17-2023 09:40-0400 SaO2% (BldA) [Mass fraction] 98 % Mel Crenshawmond Other [employer] Other 07-17-2023 09:40-0400 Systolic blood pressure 107 mm[Hg] Mel Tomlinson Other [employer] Other 09-27-2022 22:50-0500 Body temperature 98.24 [degF] Gabino Bridgett [facility] 09-27-2022 22:50-0500 Diastolic blood pressure 81 mm[Hg] Gabino Bridgett [facility] 09-27-2022 22:50-0500 Heart rate 99 /min Gabino Bridgett [facility] 09-27-2022 22:50-0500 Respiratory rate 18 /min Gabino Bridgett [facility] 09-27-2022 22:50-0500 SaO2% (BldA) [Mass fraction] 99 % Gabino Bridgett [facility] 09-27-2022 22:50-0500 Systolic blood pressure 121 mm[Hg] Gabino Bridgett [facility] 04-30-2022 02:06-0400 Body weight 49.[address] NASIR HARDING . [facility] Comment on above: Performed By: #### RPRQ #### [facility] [address] [place] [address] Dr. Valerio Alexis Encounters Encounter Date Encounter Type Care Provider Facility Start: 10-11-2024 End: 10-11-2024 Office outpatient visit 25 minutes Lee Lea MD Work Phone: [facility] Comment on above: Primary hydronephros is (Primary Dx) Start: 10-11-2024 End: 10-11-2024 ambulatory LEE LEA [facility] Start: 10-10-2024 End: 10-10-2024 Bamboo flowsheet Nasir Harding DO Work Phone: [facility] Start: 10-10-2024 End: 10-10-2024 Bamboo flowsheet Nasir Mehdi DO Work Phone: [facility] Start: 10-10-2024 End: 10-10-2024 ambulatory NASIR MEHDI Not Available Start: 10-10-2024 End: 10-10-2024 Office outpatient visit 15 minutes Nasir Mehdi DO Work Phone: [facility] Comment on above: Third trimester preg cally; 38 weeks gestation of Start: 09-30-2024 End: 09-30-2024 Clinisync Result Encounter Nasir Mehdi DO Work Phone: [facility] Unsolicited Start: 09-30-2024 End: 09-30-2024 Clinisync Result Encounter Nasir Mehdi DO Work Phone: [facility] Unsolicited Start: 09-30-2024 End: 09-30-2024 ambulatory [facility] Start: 09-26-2024 End: 09-26-2024 ambulatory Nasir Mehdi Facility:[facility] Start: 09-26-2024 End: 09-26-2024 Bamboo flowsheet Nasir Mehdi DO Work Phone: [facility] Start: 09-26-2024 End: 09-30-2024 Bamboo flowsheet Nasir Mehdi DO Work Phone: [facility] Start: 09-26-2024 End: 09-30-2024 Clinisync Result Encounter Nasir Mehdi DO Work Phone: [facility] Unsolicited Start: 09-26-2024 End: 09-26-2024 ambulatory NASIR MEHDI Not Available Start: 09-26-2024 End: 09-26-2024 Office outpatient visit 15 minutes Nasir Mehdi DO Work Phone: [facility] Comment on above: 36 weeks gestation o f ; Third trimester ; Hematuria, microscopic; SGA (small for gestational age) Start: 09-19-2024 End: 09-19-2024 Bamboo flowsheet Renata MCNULTY Work Phone: [facility] Start: 09-19-2024 End: 09-19-2024 Bamboo flowsheet Renata MCNULTY Work Phone: [facility] Start: 09-19-2024 End: 09-19-2024 Office outpatient visit 15 minutes Renata MCNULTY Work Phone: [facility] Comment on above: 35 weeks gestation o f ; Third trimester ; SGA (small for gestational age); Other hydronephrosis Start: 09-19-2024 End: 09-19-2024 ambulatory RENATA MANLEY Not Available Start: 08-26-2024 End: 08-26-2024 ambulatory RENATA AMNLEY Not Available Start: 08-26-2024 End: 08-26-2024 Office outpatient visit 15 minutes Renata MCNULTY Work Phone: [facility] Comment on above: Upper respiratory in fection, acute (Primary Dx); Third trimester ; 32 weeks gestation of ; Sinusitis, unspecified chronicity, unspecified location; Anemia, unspecified type Start: 08-26-2024 End: 08-26-2024 Bamboo flowsheet Renata MCNULTY Work Phone: [facility] Start: 08-26-2024 End: 08-26-2024 Bamboo flowsheet Renata MCNULTY Work Phone: [facility] Start: 08-20-2024 End: 08-20-2024 ambulatory VIRGINIA A HACKENBURG Not Available Start: 08-20-2024 End: 08-20-2024 Bamboo flowsheet Virginia A Hackenburg PAINT PREP TECHNICIAN Work Phone: [facility] Start: 08-20-2024 End: 08-20-2024 Bamboo flowsheet Virginia A Hackenburg PAINT PREP TECHNICIAN Work Phone: [facility] Start: 08-20-2024 End: 08-20-2024 Office outpatient visit 25 minutes Virginia A Hackenburg PAINT PREP TECHNICIAN Work Phone: [facility] Comment on [...] 15 minutes Renata Manley PA Work Phone: [facility] Comment on above: Third trimester preg cally; 30 weeks gestation of ; Diabetes mellitus screening Start: 08-08-2024 End: 08-08-2024 Bamboo flowsheet Virginia Royal PAINT PREP TECHNICIAN Work Phone: [facility] Start: 08-08-2024 End: 08-08-2024 Bamboo flowsheet Virginia Nupur Royal PAINT PREP TECHNICIAN Work Phone: [facility] Start: 08-08-2024 End: 08-08-2024 Telephone encounter Lee Lea MD Work Phone: [facility] Start: 08-08-2024 End: 08-08-2024 ambulatory VIRGINIA ROYAL Not Available Start: 08-08-2024 End: 08-08-2024 Office outpatient visit 15 minutes Virginia A Myrna PAINT PREP TECHNICIAN Work Phone: [facility] Comment on above: Pyelonephritis affec ting in third trimester (Primary Dx); Recurrent UTI Start: 08-05-2024 End: 08-05-2024 ambulatory YAMINI DEAN [facility] Start: 08-04-2024 ambulatory NO PCP NO PCP [facility] Start: 08-03-2024 End: 08-05-2024 ambulatory LEE ZARATE [facility] Start: 07-29-2024 End: 07-29-2024 Office outpatient visit 15 minutes Nasir Mehdi DO Work Phone: [facility] Comment on above: Third trimester preg cally; 28 weeks gestation of ; Allergy, initial encounter; size inconsistent with dates Start: 07-29-2024 End: 07-29-2024 ambulatory NASIR MEHDI Not Available Start: 07-29-2024 End: 07-29-2024 Bamboo flowsheet Nasir Mehdi DO Work Phone: [facility] Start: 07-29-2024 End: 07-29-2024 Bamboo flowsheet Nasir Mehdi DO Work Phone: [facility] Start: 07-03-2024 End: 07-03-2024 Bamboo flowsheet Renata MCNULTY Work Phone: [facility] Start: 07-03-2024 End: 07-11-2024 Bamboo flowsheet Renata MCNULTY Work Phone: [facility] Start: 07-03-2024 End: 07-11-2024 Clinisync Result Encounter Nasir Mehdi DO Work Phone: [facility] External Department Unsolicited Start: 07-03-2024 End: 07-05-2024 External Result Encounter Renata MCNULTY Work Phone: [facility] External Department Unsolicited Start: 07-03-2024 End: 07-03-2024 Office outpatient visit 15 minutes Renata MCNULTY Work Phone: [facility] Comment on above: Diabetes mellitus sc reening; Well woman exam with routine gynecological exam; Heartburn during in second trimester Start: 07-03-2024 End: 07-03-2024 Patient encounter procedure Renata MCNULTY Work Phone: [facility] Healthcare Start: 07-03-2024 End: 07-03-2024 ambulatory RENATA MANLEY Not Available Start: 06-05-2024 End: 06-05-2024 Bamboo flowsheet Nasir Mehdi DO Work Phone: [facility] Start: 06-05-2024 End: 06-05-2024 Bamboo flowsheet Nasir Mehdi DO Work Phone: [facility] Start: 06-05-2024 End: 06-05-2024 Office outpatient visit 15 minutes Nasir Mehdi DO Work Phone: [facility] Comment on above: Second trimester pre gnancy Start: 06-05-2024 End: 06-05-2024 ambulatory NASIR MEHDI Not Available Start: 05-09-2024 End: 05-09-2024 ambulatory NASIR MEHDI Not Available Start: 03-11-2024 End: 03-11-2024 Emergency department patient visit NO PCP NO PCP [facility] Start: 11-26-2023 End: 11-27-2023 Emergency department patient visit SLIME DALAL [facility] Start: 07-26-2023 End: 07-26-2023 ambulatory Mel Tomlinson Other [employer] Other Start: 07-26-2023 Telephone encounter Mel Tomlinson [facility] Start: 07-20-2023 End: 07-20-2023 ambulatory Augusto Brewer Other [employer] Other Start: 07-20-2023 Office outpatient vi sit 15 minutes Augusto Brewer [facility] Start: 07-17-2023 Office outpatient ne w 20 minutes Mel Tomlinson [facility] Start: 07-17-2023 End: 07-17-2023 ambulatory PAINT PREP TECHNICIAN-C Mel Tomlinson Work Phone: [facility] Work Phone: Start: 07-17-2023 End: 07-17-2023 Departed Referred PAINT PREP TECHNICIAN-C Mel Tomlinson Work Phone: [facility] [place] Work Phone: Start: 12-27-2022 End: 12-27-[address] DOCTOR MISC Facility:[facility] Start: 11-19-2022 End: 11-19-[address] DOCTOR MISC Facility:[facility] Start: 10-24-2022 End: 10-24-[address] DOCTOR MISC Facility:[facility] Start: 09-27-2022 End: 09-27-2022 Emergency department patient visit Gabino Urias [facility] Start: 08-30-2022 End: 08-30-[address] [...] End: 02-15-2022 Patient encounter procedure Gabrielle Esqueda [facility] Start: 02-11-2022 End: 02-12-[address] NASIR HARDING . Facility:[facility] Start: 01-26-2022 End: 01-27-[address] NASIR HARDING . Facility:[facility] Start: 06-08-2018 End: 06-11-2018 Evaluation and management of inpatient ROSE MARY TOBY [facility] Start: 06-06-2018 End: 06-08-2018 Evaluation and management of inpatient CONOR Hoa SANTOYO [facility] Start: 02-22-2018 End: 02-22-2018 Patient encounter MAIRA BOCKOVEN [facility] Procedures Date Procedure Procedure Detail Performing Clinician Start: 10-11-2024 Urnls dip stick/tabl et rgnt auto w/o microscopy Lee Lea MD Work Phone: Start: 10-10-2024 Urnls dip stick/tabl et rgnt non-auto w/o micrscp Nasir Mehdi DO Work Phone: Start: 09-30-2024 ALL CBC WITH AUTO DIFF Nasir Mehdi DO Work Phone: Start: 09-26-2024 BOX TEST Nasir Fazi o DO Work Phone: Start: 09-26-2024 Urnls dip stick/tabl et rgnt non-auto w/o micrscp Nasir Mehdi DO Work Phone: Start: 09-19-2024 Urnls dip [...] NASIR HARDING . Start: 08-24-2022 Repair Vulva, Supervisor Car Installations al Approach DR NASIR HARDING . None (qualifier value) Ranjan Esqueda Plan of Treatment Date Care Activity Detail Author Start: 07-03-2027 Screening for malign ant neoplasm of cervix Pap Smear [facility] Start: 10-11-2025 Adult BMI Screening Adult BMI Screen ing [facility] Start: 10-11-2025 Tobacco Screening Tobacco Screening [facility] Start: 08-05-2025 Tobacco Screening Tobacco Screening [facility] Start: 08-04-2025 Adult BMI Screening Adult BMI Screen ing [facility] Start: 08-04-2025 Depression Screening Depression [facility] ening [facility] Start: 06-02-2025 DTaP,Tdap and Td Vac cines (7 - Td or Tdap) DTaP,Tdap and Td Vaccines (7 - Td or Tdap) [facility] Start: 11-28-2024 End: 11-28-2024 Patient encounter procedure 11/28/2024 10:15 AM EST Office Visit [facility] [address] [place] [phone] Lee Lea MD [address] [place] [address] [facility] Start: 11-11-2024 End: 10-11-2025 NM Views for blood flow and kidney function NM renogram with lasix Imaging Routine Primary hydronephrosis Expected: 11/11/2024 (Approximate), Expires: 10/11/2025 [facility] Work Phone: Comment on above: Expected: 11/11/2024 (Approximate), Expires: 10/11/2025 Start: 10-08-2024 End: 10-08-2024 Patient encounter procedure 10/08/2024 11:30 AM EST Routine [facility] [address] [facility] [place] [phone] Nasir Harding, DO [address], [place] [id number] [facility] Start: 09-26-2024 End: 09-26-2025 CULTURE, GROUP B STREP WITH SUSCEPTIBLITY CULTURE, GROUP B STREP WITH SUSCEPTIBLITY Lab Routine 36 weeks gestation of Third trimester Expected: 09/26/2024, Expires: 09/26/2025 [facility] Work Phone: Comment on above: Expected: 09/26/2024 , Expires: 09/26/2025 Start: 09-26-2024 End: 09-26-2025 US for US OB SCAN FOR GROWTH Imaging Routine SGA (small for gestational age) Expected: 09/26/2024 (Approximate), Expires: 09/26/2025 [facility] Comment on above: Expected: 09/26/2024 (Approximate), Expires: 09/26/2025 Start: 09-26-2024 End: 09-26-2024 Patient encounter procedure 09/26/2024 10:30 AM EST Routine [facility] [address] [place] [phone] Nasir Harding, DO [address], [place] [phone] [facility] Start: 09-19-2024 End: 09-19-2024 Professional / ancillary services management 09/19/2024 2:30 PM EST Ancillary Procedure [facility] [address] [place] [phone] [facility] Start: 09-19-2024 End: 09-19-2025 US for US OB SCAN FOR GROWTH Imaging Routine SGA (small for gestational age) Expected: 09/19/2024 (Approximate), Expires: 09/19/2025 [facility] Comment on above: Expected: 09/19/2024 (Approximate), Expires: 09/19/2025 Start: 09-19-2024 End: 09-19-2024 Patient encounter procedure 09/19/2024 8:40 AM EST Routine [facility] [address] [facility] [phone] Renata Manley PA [address] [place] [address] Arrived [facility] Comment on above: Arrived Start: 09-16-2024 End: 09-16-2024 Patient encounter procedure 09/16/2024 10:30 AM EST Routine [facility] [address] [facility] [phone] Nasir Harding DO [address] [facility] [place] [address] [facility] Start: 09-07-2024 End: 08-08-2025 Basic metabolic 2000 panel - Serum or Plasma Basic Metabolic Panel Lab Routine Primary hydronephrosis Expected: 09/07/2024 (Approximate), Expires: 08/08/2025 [employer] Comment on above: Expected: 09/07/2024 (Approximate), Expires: 08/08/2025 Start: 09-07-2024 End: 08-08-2025 US Retroperitoneum Ultrasound retroperitoneal complete Imaging Routine Primary hydronephrosis Expected: 09/07/2024 (Approximate), Expires: 08/08/2025 [employer] Work Phone: Comment on above: Expected: 09/07/2024 (Approximate), Expires: 08/08/2025 Start: 08-26-2024 End: 08-26-2024 Patient encounter procedure 08/26/2024 2:20 PM EST Routine [facility] [address] [facility] [place] [phone] Renata Manley PA [address] [place] [address] [facility] Start: 08-20-2024 End: 08-20-2025 US.doppler Upper extremity vein - left Vascular US upper extremity venous duplex left Imaging STAT Left arm pain Expected: 08/20/2024, Expires: 08/20/2025 [facility] Work Phone: Comment on above: Expected: 08/20/2024 , Expires: 08/20/2025 Start: 08-13-2024 End: 08-13-2025 CBC panel - Blood by Automated count CBC Lab Routine Diabetes mellitus screening Expected: 08/13/2024 (Approximate), Expires: 08/13/2025 [facility] Work Phone: Comment on above: Expected: 08/13/2024 (Approximate), Expires: 08/13/2025 Start: 08-13-2024 End: 08-13-2025 Measurement of glucose 1 hour after glucose challenge for glucose tolerance test Glucose tolerance, 1 hour Lab Routine Diabetes mellitus screening Expected: 08/13/2024 (Approximate), Expires: 08/13/2025 [facility] Comment on above: Expected: 08/13/2024 (Approximate), Expires: 08/13/2025 Start: 08-13-2024 End: 08-13-2024 Patient encounter procedure 08/13/2024 10:50 AM EST Routine [facility] [address] [facility] [place] [phone] Renata Manley PA [address] [place] [address] [facility] Start: 08-13-2024 End: 08-13-2024 Professional / ancillary services management 08/13/2024 10:30 AM EST Ancillary Procedure [facility] [address] [place] [phone] [facility] Start: 07-29-2024 End: 07-29-2024 [...] EDT Ancillary Procedure [facility] [address] [facility] [phone] [facility] Start: 07-03-2024 End: 07-03-2025 CBC panel - Blood by Automated count CBC Lab Routine Diabetes mellitus screening Expected: 07/03/2024 (Approximate), Expires: 07/03/2025 [facility] Work Phone: Comment on above: Expected: 07/03/2024 (Approximate), Expires: 07/03/2025 Start: 07-03-2024 End: 07-03-2025 Measurement of glucose 1 hour after glucose challenge for glucose tolerance test Glucose tolerance, 1 hour Lab Routine Diabetes mellitus screening Expected: 07/03/2024 (Approximate), Expires: 07/03/2025 [facility] Comment on above: Expected: 07/03/2024 (Approximate), Expires: 07/03/2025 Start: 07-03-2024 End: 07-03-2024 Patient encounter procedure 07/03/2024 1:30 PM EDT Routine [facility] [address] [place] [phone] Renata Manley PA [address] [place], [place] [phone] Arrived [facility] Comment on above: Arrived Start: 06-05-2024 End: 06-05-2024 Patient encounter procedure 06/05/2024 10:50 AM EDT Routine [facility] [address] [facility] [phone] Nasir Harding, DO [address] [facility] [place] [address] Arrived [facility] [facility] Comment on above: Arrived Start: 06-02-2024 COVID-19 Vaccine ( season) COVID-19 Vaccine () [facility] Start: 06-02-2024 Influenza vaccination [facility] Start: 07-17-2023 [facility] Start: 2002 Screening for Chlamy yoel trachomatis Chlamydia Screening [facility] Start: 2002 Tobacco Counseling Tobacco Counselin g [facility] Atopobium vaginae DN A [Presence] in Vaginal fluid by CHULA with probe detection [facility] Bacteria identified in Urine by Culture Urine culture Microbiology Routine Hematuria, microscopic Ordered: 09/26/2024 [facility] Comment on above: Ordered: 09/26/2024 Bacterial vaginosis associated bacterium 2 DNA [Presence] in Vaginal fluid by CHULA with probe detection [facility] Cytology Cervical or vaginal smear or scraping study Pap Smear Pathology and Cytology Routine Well woman exam with routine gynecological exam Ordered: 07/03/2024 [facility] Comment on above: Ordered: 07/03/2024 Hemoglobin A1c/Hemoglobin.total in Blood Hemoglobin A1c Lab Routine 35 weeks gestation of Third trimester Ordered: 09/19/2024 [facility] Work Phone: Comment on above: Ordered: 09/19/2024 Megasphaera sp type 1 DNA [Presence] in Vaginal fluid by CHULA with probe detection [facility] Immunizations Immunization Date Immunization Notes Care Provider Fa ayo 09-17-2018 influenza, injectabl e, quadrivalent, preservative free Renata MCNULTY Work Phone: [facility] 09-17-2018 meningococcal B vaccine, recombinant, OMV, adjuvanted Renata MCNULTY Work Phone: [facility] 09-17-2018 influenza virus vaccine, unspecified formulation Renata MCNULTY Work Phone: [facility] 07-06-2018 meningococcal B vaccine, recombinant, OMV, adjuvanted Renata MCNULTY Work Phone: [facility] 07-06-2018 meningococcal polysaccharide (groups A, C, Y and W-135) diphtheria toxoid conjugate vaccine (MCV4P) Reanta MCNULTY Work Phone: [facility] 11-25-2017 influenza, seasonal, injectable Gabrielle Esqueda [facility] Comment on above: Reason for Medicatio n: Other (see comment) 11-25-2017 influenza, injectabl e, quadrivalent, preservative free Renata MCNULTY Work Phone: [facility] 12-01-2015 hepatitis A vaccine, pediatric/adolescent dosage, 2 dose schedule Renata MCNULTY Work Phone: [facility] 12-01-2015 human papilloma viru s vaccine, quadrivalent Renata MCNULTY Work Phone: [facility] 12-01-2015 influenza virus vaccine, whole virus Renata MCNULTY Work Phone: [facility] 08-04-2015 human papilloma viru s vaccine, quadrivalent Renata MCNULTY Work Phone: [facility] 06-02-2015 hepatitis A vaccine, pediatric/adolescent dosage, 2 dose schedule Renata MCNULTY Work Phone: [facility] 06-02-2015 human papilloma viru s vaccine, quadrivalent Renata MCNULTY Work Phone: [facility] 06-02-2015 meningococcal ACWY vaccine, unspecified formulation Renata MCNULTY Work Phone: [facility] 06-02-2015 tetanus toxoid, redu edi diphtheria toxoid, and acellular pertussis vaccine, adsorbed Renata MCNULTY Work Phone: [facility] 06-01-2007 diphtheria, tetanus toxoids and acellular pertussis vaccine, unspecified formulation Renata Vineet PA Work Phone: [facility] 06-01-2007 measles, mumps, rubella, and varicella virus vaccine Renata Vineet PA Work Phone: [facility] 06-01-2007 poliovirus vaccine, inactivated Renata Manley PA Work Phone: [facility] 10-24-2003 diphtheria, tetanus toxoids and acellular pertussis vaccine, unspecified formulation Renata Vineet PA Work Phone: [facility] 10-24-2003 poliovirus vaccine, unspecified formulation Renata Manley PA Work Phone: [facility] 10-10-2003 hepatitis B vaccine, pediatric or pediatric/adolescent dosage Renata Manley PA Work Phone: [facility] 10-10-2003 measles, mumps and rubella virus vaccine Renata Manley PA Work Phone: [facility] 10-10-2003 pneumococcal conjuga te vaccine, 7 valent Renata Stonewall PA Work Phone: [facility] 04-10-2003 varicella virus vaccine Renata Manley PA Work Phone: [facility] 2002 diphtheria, tetanus toxoids and acellular pertussis vaccine, unspecified formulation Renata Vineet PA Work Phone: [facility] 2002 pneumococcal conjuga te vaccine, 7 valent Renata Vineet PA Work Phone: [facility] 2002 diphtheria, tetanus toxoids and acellular pertussis vaccine, unspecified formulation Renata Vineet PA Work Phone: [facility] 2002 pneumococcal conjuga te vaccine, 7 valent Renata Vineet PA Work Phone: [facility] 2002 poliovirus vaccine, inactivated Renata Vineet PA Work Phone: [facility] 2002 diphtheria, tetanus toxoids and acellular pertussis vaccine, unspecified formulation Renata Manley PA Work Phone: [facility] 2002 hepatitis B vaccine, pediatric or pediatric/adolescent dosage Renata Manley PA Work Phone: [facility] 2002 pneumococcal conjuga te vaccine, 7 valent Renata MCNULTY Work Phone: [facility] 2002 poliovirus vaccine, inactivated Renata MCNULTY Work Phone: [facility] 2002 diphtheria, tetanus toxoids and acellular pertussis vaccine, unspecified formulation Renata MCNULTY Work Phone: [facility] 2002 pneumococcal conjuga te vaccine, 7 valent Renata MCNULTY Work Phone: [facility] 2002 poliovirus vaccine, unspecified formulation Renata MCNULTY Work Phone: [facility] 2002 hepatitis B vaccine, pediatric or pediatric/adolescent dosage Renata MCNULTY Work Phone: [facility] NEGATED: Highlighted row has not occurred!11-20-2019 influenza virus vaccine, live, attenuated, for intranasal use Gabrielle Esqueda [facility] Payers Date Payer Category Payer Medicaid O [facility] [id number] 2023 Medicaid [id number] 2023 Private Health Insurance [facility] [id number] 2002 Unknown [id number] 2.16.840.1.197634.3.579.2. 593 2002 Unknown [id number] 2.16.840.1.827615.3.579.2. 593 2002 Unknown [id number] 2.16.840.1.629571.3.579.2. 593 2002 Unknown [id number] 2.16.840.1.270593.3.579.2. 593 2002 Unknown [id number] 2.16.840.1.650899.3.579.2. 593 2002 Unknown [id number] 2.16.840.1.248615.3.579.2. 593 2002 Unknown [id number] 2.16.840.1.458924.3.579.2. 593 2002 Unknown [id number] 2.16.840.1.444479.3.579.2. 593 2002 Unknown [id number] 2.16.840.1.625775.3.579.2. 593 2002 Unknown [id number] 2.16.840.1.084852.3.579.2. 593 2002 Unknown [id number] 2.16.840.1.988851.3.579.2. 593 2002 Unknown [id number] 2.16.840.1.266017.3.579.2. 593 2002 Unknown [id number] 2.16.840.1.564240.3.579.2. 593 2002 Unknown [id number] 2.16.840.1.704437.3.579.2. 593 2002 Unknown [id number] 2.16.840.1.024442.3.579.2. 593 2002 Unknown [id number] 2.16.840.1.510635.3.579.2. 593 2002 Unknown [id number] 2.16.840.1.073992.3.579.2. 593 2002 Unknown [id number] 2.16.840.1.746555.3.579.2. 593 2002 Unknown [id number] 2.16.840.1.731563.3.579.2. 593 2002 Unknown [id number] 2.16.840.1.891139.3.579.2. 593 2002 Unknown [id number] 2.16.840.1.803886.3.579.2. 593 2002 Unknown [id number] 2.16.840.1.597270.3.579.2. 593 2002 Unknown [id number] 2.16.840.1.849747.3.579.2. 593 2002 Unknown [id number] 2.16.840.1.169566.3.579.2. 593 2002 Unknown [id number] 2.16.840.1.190074.3.579.2. 593 2002 Unknown [id number] 2.16.840.1.272492.3.579.2. 593 2002 Unknown [id number] 2.16.840.1.977893.3.579.2. 593 2002 Unknown [id number] 2.16.840.1.773518.3.579.2. 593 2002 Unknown [id number] 2.16.840.1.170722.3.579.2. 593 2002 Unknown [id number] 2.16.840.1.618184.3.579.2. 593 2002 Unknown [id number] 2.16.840.1.778698.3.579.2. 593 2002 Unknown [id number] 2.16.840.1.054081.3.579.2. 593 2002 Unknown [id number] 2.16.840.1.325015.3.579.2. 593 2002 Unknown [id number] 2.16.840.1.468227.3.579.2. 1286 2002 Unknown [id number] 2.16.840.1.153681.3.579.2. 128 2002 Unknown [id number] 2.16840.1.584819.3.579.2. 128 2002 Unknown [id number] 2.16840.1.509399.3.579.2. 1258 2002 Unknown [id number] 2.16.840.1.293057.3.579.2. 1258 2002 Unknown [id number] 2.16.840.1.598914.3.579.2. 9 2002 Unknown [id number] 2.16840.1.677523.3.579.2. 1258 2002 Unknown [id number] 2.16.840.1.488706.3.579.2. 1258 2002 Unknown [id number] 2.16.840.1.924022.3.579.2. 1258 2002 Unknown [id number] 2.16.840.1.468936.3.579.2. 1258 2002 Unknown [id number] 2.16.840.1.901824.3.579.2. 125 2002 Unknown [id number] 2.16.840.1.855202.3.579.2. 1259 2002 Unknown [id number] 2.16.840.1.085744.3.579.2. 1259 2002 Unknown [id number] 2.16.840.1.069620.3.579.2. 1259 2002 Unknown [id number] 2.16.840.1.790999.3.579.2. 1259 2002 Unknown [id number] 2.16.840.1.656664.3.579.2. 1286 2002 Unknown [id number] 2.16.840.1.249452.3.579.2. 1286 2002 Unknown [id number] 2.16.840.1.707208.3.579.2. 1286 1959 Self-pay 1959 Unknown [id number] 1959 Unknown [id number] Unknown [id number] 2.16.840.1.383260.3.579.2. 593 Unknown [id number] 2.16.840.1.005451.3.579.2. 531 Social History Date Type Detail Facility Start: 05-19-2021 Tobacco smoking status Never s moked tobacco (finding) [facility] Comment on above: denies denies denies Tobacco smoking status Never [facility] Comment on above: denies denies denies Start: 05-09-2024 End: 08-04-2024 Sex Assigned At Female [facility] Start: 2002 Sex Assigned At Female [facility] Start: 05-09-2024 End: 08-08-2024 Tobacco smoking status NHIS Ex-smoker [facility] History of tobacco use Current smoker [facility] Start: 10-02-2023 End: 07-21-2024 History of tobacco use Cigarette Smoker [facility] Start: 05-09-2024 End: 08-04-2024 Tobacco use and exposure Smokeless tobacco non-user [facility] Start: 06-05-2024 End: 10-11-2024 Alcoholic beverage intake Ex-drinker (finding) [facility] Start: 06-05-2024 End: 08-04-2024 Alcoholic beverage intake [facility] Start: 01-27-2024 [facility] Start: 2002 Sex assigned at Not on file [facility] Start: 10-02-2023 Tobacco smoking stat NHIS Occasional tobacco smoker [facility] Has the [employer], [employer], or [employer] threatened to shut off services in your home in past 12Mo No [facility] Are you now , , , , never or living with a partner? Never [facility] How hard is it for y ou to pay for the very basics like food, housing, medical care, and heating Not very hard [facility] The thought of alex mendieta myself has occurred to me Never [facility] Start: 08-04-2024 Tobacco Comment Pt states quit 2 weeks ago [facility] Start: 12-09-2020 Sex Female (finding) [facility] Start: 08-04-2024 Gender identity Identifies as female gender (finding) [facility] Start: 08-04-2024 Sexual orientation Heterosexual (fin ding) [facility] Start: 08-20-2024 Alcohol Comment Caffine: 1 cup daily [facility] Goals Date Patient Goal Desired Activity /State Personal health goal Functional Status Date Assessment Result Facility 09-27-[address] [facility] Clinical Notes 04-14-2021 to 10-11-2024 Lee Lea MD - 10/11/2024 9:00 AM HAMLET Gann - 10/10/2024 10:00 AM Frank Hinton LPN - 09/26/2024 10:30 AM Johanny Schultz [employer] - 09/19/2024 8:40 AM EST Note Date & Type Note Facility 10-11-2024 History of Presen t illness Narrative Images from the original note were not included. [address] [address] [id number] Patient: Becca Stafford Date of : 2000 Encounter Date: 10/11/2024 History of Present Illness: Chief Complaint: none The patient is a 24 y.o. female, a new patient, and is here for hydronephrosis. Overall doing well. Has not had any evidence of infections since admission to the hospital. Currently at almost 39 weeks. Has chronic right-sided pain which predates . Did have infection during her last 2 years ago.. Summary of old records: Inpatient consult: The patient is a 24 y.o. female had 29 weeks gestation with past urologic history of recurrent UTIs since childhood and nephrolithiasis noted on prior imaging per patient who presents with fatigue, intermittent fevers, chills, and right lower quadrant pain for the last 4 days. Urology has been consulted for severe right hydronephrosis with concerns for upper pole pyelonephritis. Labs today showing WBC 10.3, hemoglobin 10.4, creatinine 0.54 (baseline). UA was performed showing small leukocyte esterase, and negative nitrites. Urine culture was obtained and currently pending. Patient had CT abdomen and pelvis performed at OSH on 08/03/2024 showing no obstructive calculus. MRI of the abdomen on 08/04/2024 showing severe right hydronephrosis with right-sided upper pole pyelonephritis. On evaluation, patient is afebrile and hemodynamically stable. Patient is resting comfortably in bed and in no acute distress. Patient endorses right lower quadrant pain that is currently 4/10 but appears to be worsening. Patient endorses increased frequency, urgency, and mild dysuria. Patient states she has a history of recurrent UTIs since she was a child and describes undergoing UDS studies in the past. Patient describes having large capacity bladder and believes she was told that she does not empty her bladder completely. Patient currently denies fever, chills, nausea, vomiting, chest pain, shortness of breath, hematuria, constipation, or diarrhea. No acute urologic intervention indicated at this time. Continue IV antibiotics per primary Follow up urine cultures and tailor antibiotics as needed Please obtain straight cath PVR to ensure patient is not retaining If patient spikes fever greater than 101, or becomes hypotensive/tachycardic concerning for sepsis; patient will need emergent right nephrostomy tube placement with IR. Urology will continue to follow. Urinalysis today: Recent Labs 10/11/24 0941 EXTPOCURBS Negative EXTPOCURBIL Negative EXTPOCUKET Negative EXTPOCUSPG 1.020 EXTPOCUPRO Negative EXTPOCUURO 0.2 EXTPOCUNIT Negative EXTPOCUBLD Negative EXTPOCUPH 6.5 EXTPOCULEE Trace Last BUN and creatinine: Lab Results Component Value Date BUN 9 08/05/2024 Lab Results Component Value Date CREATININE 0.52 08/05/2024 Last PSA: No results found for: PSA No results found for: PROSTATICSP Additional Lab/Culture results: None Imaging Reviewed during this Office Visit: Ultrasound reviewed persistent right-sided hydronephrosis (Results were independently reviewed by physician and radiology report verified) Past Medical, Family, and Social History Update: The following portions of the patient's history were reviewed and updated as appropriate: allergies, current medications, past family history, past medical history, past social history, past surgical history and problem list. Past Medical History: Diagnosis Date Anxiety Urinary tract infection Past Surgical History: Procedure Laterality Date NO PAST SURGERIES Family History Problem Relation Age of Onset No Known Problems Father No Known Problems Mother Stroke Neg Hx Ovarian cancer Neg Hx Hypertension Neg Hx Diabetes Neg Hx Breast cancer Neg Hx Cancer Neg Hx Colon cancer Neg Hx No current outpatient medications on file. No current facility-administered medications for this visit. (All medications reviewed and updated by provider since last office visit or hospitalization) Allergies: Patient has no known allergies. Tobacco History: Social History Tobacco Use Smoking Status Some Days Current packs/day: 0.00 Average packs/day: 1 pack/day for 0.8 years (0.8 ttl pk-yrs) Types: Cigarettes Start date: 2023 Last attempt to quit: 07/21/2024 Years since quittin.2 Smokeless Tobacco Never Tobacco Comments Pt states quit 2 weeks ago (If patient a smoker, smoking cessation counseling offered) Social History: Social History Substance and Sexual Activity Alcohol Use Not Currently Review of Systems: Constitutional: Normal activity and energy. Patient denies change in appetite, weight loss or gain, malaise (depression), chills, fever, or diaphoresis (sweating). Eyes: Patient denies vision changes or diplopia (double vision). Ears, Nose, Nose and Throat: Patient denies tinnitus (ringing in ears), hearing loss, epistaxis (nose bleed), hoarseness, and dysphagia (hard to swallow). Respiratory: Patient denies dyspnea (shortness of breath), cough, hemotypsis (blood in sputum), and wheezing. Cardiovascular: Patient denies chest pain, palpitations, and shortness of breath. Gastrointestinal: Patient denies abdominal pain, nausea, vomiting, bloating, diarrhea (chronic), constipation (chronic), melena (black stool), hematochezia (blood in stool). Musculoskeletal: Patient denies joint pain/stiffness, weakness, swelling, and backache. Neurologic: Patient denies weakness, dizziness, loss of consciousness, transient ischemic symptoms, and seizures. Integument: Patient denies rashes and non-healing lesions. Psychiatric: Patient denies increased nervousness, mood changes, or depression. Endocrine: Patient denies thyroid trouble, heat or cold intolerance, diabetes, excessive thirst, hunger, and excessive urination. Blood Disorders: Patient denies anemia, easy bruising, and easy bleeding. Physical Exam: BP 114/78 Pulse 89 Resp 18 Ht 157.2 cm (5' 1.89 ) Wt 59.9 kg (132 lb) LMP (LMP Unknown) BMI 24.23 kg/m General appearance - alert, well appearing, and in no distress Mental status - affect appropriate to mood Neurological - alert, oriented, normal speech Head - normocephalic, atraumatic Cardiovascular- normal peripheral pulses Abdomen - soft, nontender, nondistended, no masses or organomegaly Female: not indicated Back exam - Normal gait Musculoskeletal - Normal strength in upper and lower extremities Extremities - Warm and dry, full range of motion Lymphatics - no palpable lymphadenopathy Skin - normal coloration and turgor, no rashes, no suspicious skin lesions noted Assessment and Plan: Patience was seen today for new patient. Diagnoses and all orders for this visit: Primary hydronephrosis - POCT Urinalysis Auto, W/O Microscopy - NM renogram with lasix; Future Problem List Primary hydronephrosis - Primary Overview 10/11/24 No visible stone on CT scan from August. Will have her follow up with Lasix renogram in 6 weeks which will be a proximally 1 month after delivery Relevant Orders POCT Urinalysis Auto, W/O Microscopy (Completed) NM renogram with lasix Follow-up: Lasix renogram f/u 6 weeks Lee Lea MD This note was created with the assistance of a speech recognition program. While intending to generate a timely document that accurately reflects the content of the visit, no guarantee can be provided that every grammatical or spelling mistake has been or will be identified or corrected. Thank you for your understanding. documented in this encounter [facility] 10-10-2024 History of Presen t illness Narrative Reason [...] 19.0-19.9 in adult 06/12/2023 Childhood eating disorder ([facility] 06/12/2023 Depressive disorder ([facility]) 06/07/2018 Disorder of refraction and accommodation 02/11/2014 Dysmenorrhea 06/12/2023 Menorrhagia with regular cycle 06/12/2023 Myopia 01/07/2015 Overactive bladder 09/15/2016 Overdose of antipsychotic, intentional self-harm, initial encounter ([facility]) 06/06/2018 Pharyngitis 06/12/2023 Tonsillitis 06/12/2023 Recurrent UTI [...] reviewed. Vitals: Estimated body mass index is 24.14 kg/m as calculated from the following: Height as of 08/08/24: 5' 2 . Weight as of this encounter: 132 lb. BP: 110/68 No LMP recorded (lmp unknown). Patient is . ASSESSMENT & PLAN ICD-10-CM 1. Third trimester Z34.93 POCT urinalysis dipstick manually resulted 2. 38 weeks gestation of Z3A.38 Return OB: Patient presents today for a routine obstetrics appointment. Patient is currently 38w5d . Patient states she is doing well but has complaints of being tired due to current . Patient has verbalizes frequent movement. labor precautions was discussed/given and patient was instructed to perform kick counts three times a day. Orders Placed This Encounter Procedures POCT urinalysis dipstick manually resulted Follow Up: Patient is to return to office in 1 week for routine OB appointment. Documented by HAMLET Underwood on behalf of: Nasir Harding DO documented in this encounter [facility] 09-26-2024 History of Presen t illness Narrative Reason [...] 19.0-19.9 in adult 06/12/2023 Childhood eating disorder ([facility]) 06/12/2023 Depressive disorder ([facility]) 06/07/2018 Disorder of refraction and accommodation 02/11/2014 Dysmenorrhea 06/12/2023 Menorrhagia with regular cycle 06/12/2023 Myopia 01/07/2015 Overactive bladder 09/15/2016 Overdose of antipsychotic, intentional self-harm, initial encounter ([facility]) 06/06/2018 Pharyngitis 06/12/2023 Tonsillitis 06/12/2023 Recurrent UTI [...] nursing note reviewed. Exam conducted with a employee placement specialist present. Vitals: Estimated body mass index is [...] Nasir Harding DO documented in this encounter [facility] 09-19-2024 History of Presen t illness Narrative [...] 19.0-19.9 in adult 06/12/2023 Childhood eating disorder ([facility]) 06/12/2023 Depressive disorder ([facility]) 06/07/2018 Disorder of refraction and accommodation 02/11/2014 Dysmenorrhea 06/12/2023 Menorrhagia with regular cycle 06/12/2023 Myopia 01/07/2015 Overactive bladder 09/15/2016 Overdose of antipsychotic, intentional self-harm, initial encounter ([facility]) 06/06/2018 Pharyngitis 06/12/2023 Tonsillitis 06/12/2023 Recurrent UTI [...] nursing note reviewed. Exam conducted with a employee placement specialist present. Vitals: Estimated body mass index is [...] Nasir Harding DO documented in this encounter [facility] 08-26-2024 History of Presen t illness Narrative [...] 19.0-19.9 in adult 06/12/2023 Childhood eating disorder ([facility]) 06/12/2023 Depressive disorder ([facility]) 06/07/2018 Disorder of refraction and accommodation 02/11/2014 Dysmenorrhea 06/12/2023 Menorrhagia with regular cycle 06/12/2023 Myopia 01/07/2015 Overactive bladder 09/15/2016 Overdose of antipsychotic, intentional self-harm, initial encounter ([facility]) 06/06/2018 Pharyngitis 06/12/2023 Tonsillitis 06/12/2023 Recurrent UTI [...] of: HAMLET Underwood documented in this encounter [facility] 08-20-2024 History of Presen t illness Narrative [...] follow-ups on file. documented in this encounter [facility] 08-13-2024 History of Presen t illness Narrative [...] 19.0-19.9 in adult 06/12/2023 Childhood eating disorder ([facility]) 06/12/2023 Depressive disorder ([facility]) 06/07/2018 Disorder of refraction and accommodation 02/11/2014 Dysmenorrhea 06/12/2023 Menorrhagia with regular cycle 06/12/2023 Myopia 01/07/2015 Overactive bladder 09/15/2016 Overdose of antipsychotic, intentional self-harm, initial encounter ([facility]) 06/06/2018 Pharyngitis 06/12/2023 Tonsillitis 06/12/2023 Recurrent UTI [...] notes from er visit with transfer to [place] reviewed. Pt was sent for mri for [...] of: HAMLET Underwood documented in this encounter [facility] 08-08-2024 Miscellaneous Notes Formattin g of this note might be different from the original. Needs renal ultrasound, labs, and follow up with me in 1 month documented in this encounter [facility] 08-08-2024 Telephone encount er Note Needs renal ultrasound, labs, and follow up with me in 1 month [facility] 08-08-2024 History of Presen t illness Narrative [...] then. Recurrent UTI documented in this encounter [facility] 07-29-2024 History of Presen t illness Narrative [...] 19.0-19.9 in adult 06/12/2023 Childhood eating disorder ([facility] 06/12/2023 Depressive disorder ([facility]) 06/07/2018 Disorder of refraction and accommodation 02/11/2014 Dysmenorrhea 06/12/2023 Menorrhagia with regular cycle 06/12/2023 Myopia 01/07/2015 Overactive bladder 09/15/2016 Overdose of antipsychotic, intentional self-harm, initial encounter ([facility]) 06/06/2018 Pharyngitis 06/12/2023 Tonsillitis 06/12/2023 Recurrent UTI [...] nursing note reviewed. Exam conducted with a employee placement specialist present. Vitals: Estimated body mass index is [...] Nasir Harding DO documented in this encounter [facility] 07-03-2024 History of Presen t illness Narrative [...] 19.0-19.9 in adult 06/12/2023 Childhood eating disorder ([facility]) 06/12/2023 Depressive disorder ([facility] 06/07/2018 Disorder of refraction and accommodation 02/11/2014 Dysmenorrhea 06/12/2023 Menorrhagia with regular cycle 06/12/2023 Myopia 01/07/2015 Overactive bladder 09/15/2016 Overdose of antipsychotic, intentional self-harm, initial encounter ([facility]) 06/06/2018 Pharyngitis 06/12/2023 Tonsillitis 06/12/2023 Recurrent UTI [...] nursing note reviewed. Exam conducted with a employee placement specialist present. Vitals: Estimated body mass index is [...] of: HAMLET Underwood documented in this encounter [facility] 06-05-2024 History of Presen t illness Narrative [...] 19.0-19.9 in adult 06/12/2023 Childhood eating disorder ([facility]) 06/12/2023 Depressive disorder ([facility]) 06/07/2018 Disorder of refraction and accommodation 02/11/2014 Dysmenorrhea 06/12/2023 Menorrhagia with regular cycle 06/12/2023 Myopia 01/07/2015 Overactive bladder 09/15/2016 Overdose of antipsychotic, intentional self-harm, initial encounter [place] 06/06/2018 Pharyngitis 06/12/2023 Tonsillitis 06/12/2023 Recurrent UTI [...] nursing note reviewed. Exam conducted with a employee placement specialist present. Vitals: Estimated body mass index is [...] Nasir Harding DO documented in this encounter [facility] 07-20-2023 Evaluation note Encounter Date Diagnosis Assessment [...] and subcutaneous tissue, unspecified (ICD-10 - L08.9) [employer] Other 10-16-2023 Evaluation note* Encounter Date Diagnosis [...] of candidiasis of vagina (ICD-10 - Z86.19) [facility] Other 12-28-2022 Hospital Discharge instructions Patient Education 09/27/2022 23:49:20 Upper Respiratory Infection, Adult, Deak-yj-Tsdt Upper Respiratory Infection, Adult An upper respiratory [...] and other clear broths. 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 Avoid touching your mouth, face, eyes, or [...] get better within 7 10 days. Take lpvl-ten-fzpirna and prescription medicines only as told by your doctor. This information is not intended to replace advice given to you by your health care provider. Make sure you discuss any questions you have with your health care provider. Document Released: 03/06/2009 Document Revised: 09/26/2019 Document Reviewed: 05/11/2018 [employer] Patient Education 2020 [employer] 09/27/2022 23:49:20 Cough, Adult, Ylmm-kw-Iros Cough, Adult A cough helps to clear [...] Follow these instructions at home: Medicines Take hdsl-bcl-zjqohfl and prescription medicines only as told by [...] Many things can cause a cough. Take hixs-ode-alwlpkw and prescription medicines only as told by [...] 05/31/2012 Document Revised: 10/07/2019 Document Reviewed: 10/07/2019 [employer] Patient Education 2020 [employer]. Follow Up Care 09/27/2022 22:50:28 With:Fatoumata Oneill Address:Unknown When:09/30/2022 Comments:Follow-up with your primary care provider in 3 to 5 days. If symptoms worsen, do not improve, or new symptoms arise please report back to emergency department for further evaluation. [facility]12-27-2022 Evaluation + Plan noteExtracted from: Title:ED Note Author:Felipe GOMEZ, Rober Burnette te:09/27/22 Constipation (K59.00: Consti pation, unspecified) Upper respiratory infection, viral (J06.9: Acute upper respiratory infection, unspecified) Orders: polyethylene glycol 3350, 17 gm, Oral, Daily, # 12 EA, Refills(s) 0, Pharmacy: [facility]/pharmacy #[id number], 157.5, cm, 09/27/22 22:57:00 EST, Height/Length Dosing, 51.3, kg, 09/27/22 22:57:00 EST, Weight Dosing Group A Strep by PCR Rapid Strep w/rfx Diagnostic Tests Pending * Group A Strep by PCR 09/27/22 [facility]07-14-2021 Evaluation + Plan note Future Scheduled Tests Laboratory* Rapid Strep w/rfx 04/14/21 [facility] information available [facility] Work Phone: Evaluation noteNo InformationNort Metric Insights Other Evaluation note* Diagnosis Diabetes mellitus screening Screening for diabetes mellitus Well woman exam with routine gynecological exam Routine gynecological examination Heartburn during in second trimester [facility] 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 [facility] Pyelonephritis affecting in third [...] state, incidental SGA (small for gestational age) Sskpf-voy-yacin without mention of malnutrition, unspecified (weight) Other hydronephrosis [facility] Diagnosis 36 weeks gestation of Third trimester state, incidental Hematuria, microscopic Microscopic hematuria SGA (small for gestational age) Ieyfq-ybs-hmjtq without mention of malnutrition, unspecified (weight) [facility] Diagnosis Third trimester state, incidental 38 weeks gestation of [facility] Diagnosis 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 [facility] N[facility] No data available for this section [facility] No data available for this section [facility]ructionsNot on filedocumented in this encounter [facility]ructionsNot on filedocumented in this encounter [facility] No data available for this section [facility] Summary Purpose Family History No Family History Records FoundNo Family History Records FoundNo Family History Records FoundNo Family History Records FoundNo Family History Records FoundNo Family History Records FoundNo Family History Records FoundNo Family History Records FoundNo Family History Records Found Advance Directives No Advanced Directives Records Found Date Activated Date Inactivated Comments 08/04/2024 12:24 AM 08/05/2024 6:42 PM Date Activated Date Inactivated Comments 08/04/2024 12:24 AM 08/05/2024 6:42 PM Additional Source Comments INFORMATION SOURCE (unrecogn ized section and content) DATE CREATED AUTHOR 07/16/2018 [facility] DATE CREATED AUTHOR AUTHOR'S ORGANIZ ATION 11/22/2019 [facility] DATE CREATED AUTHOR AUTHOR'S ORGANIZ ATION 12/30/2022 [facility] DATE CREATED AUTHOR AUTHOR'S ORGANIZ ATION 10/01/2023 Dalal Marcos [facility] DATE CREATED AUTHOR AUTHOR'S ORGANIZ ATION 08/29/2024 [facility] DATE CREATED AUTHOR AUTHOR'S ORGANIZ ATION 09/30/2024 [facility] DATE CREATED AUTHOR AUTHOR'S ORGANIZ ATION 10/02/2024 [facility] DATE CREATED AUTHOR AUTHOR'S ORGANIZ ATION 10/15/2024 [facility] DATE CREATED AUTHOR AUTHOR'S ORGANIZ ATION 10/16/2024 [facility] Patient Care team informatio n (unrecognized section and content) Team Status: Inactive Member Role Status Dates Mel Tomlinson , PAINT PREP TECHNICIAN-C Attending Provider Active Speech And Language Tutor Relationship Specialty Start Date End Date Jesusita Torrez MD [address] [place] [address] PCP - General Family Medicine 03/13/24 Speech And Language Tutor Relationship Specialty Start Date End Date Jesusita Torrez MD [address] [place], [place] [id number] PCP - General Family Medicine 03/13/24 Speech And Language Tutor Relationship Specialty Start Date End Date Jesusita Torrez MD [address] [place], [place] [id number] PCP - General Family Medicine 03/13/24 Speech And Language Tutor Relationship Specialty Start Date End Date No Pcp, [place] [address] PCP - General Family Medicine 11/26/23 Speech And Language Tutor Relationship Specialty Start Date End Date Jesusita Torrez MD [address] [place] [address] PCP - General Family Medicine 03/13/24 Speech And Language Tutor Relationship Specialty Start Date End Date Jesusita Torrez MD [address] [place] [address] PCP - General Family Medicine 03/13/24 Speech And Language Tutor Relationship Specialty Start Date End Date Jesusita Torrez MD [address] [place] [address] PCP - General Family Medicine 03/13/24 Speech And Language Tutor Relationship Specialty Start Date End Date Jesusita Torrez MD [address] [place] [address] PCP - General Family Medicine 03/13/24 Speech And Language Tutor Relationship Specialty Start Date End Date Jesusita Torrez MD [address] [place] [address] PCP - General Family Medicine 03/13/24 Speech And Language Tutor Relationship Specialty Start Date End Date Jesusita Torrez MD [address] [place] [address] PCP - General Family Medicine 03/13/24 Speech And Language Tutor Relationship Specialty Start Date End Date Jesusita Torrez MD [address] [place] [address] PCP - General Family Medicine 03/13/24 Speech And Language Tutor Relationship Specialty Start Date End Date Jesusita Torrez MD [address] [place] [address] [place] [address] PCP - General Family Medicine 03/13/24 Speech And Language Tutor Relationship Specialty Start Date End Date Jesusita Torrez MD [address] [place] [address] [place] [address] PCP - General Family Medicine 03/13/24 Speech And Language Tutor Relationship Specialty Start Date End Date Jesusita Torrez MD [address] [place] [address] [place] [address] PCP - General Family Medicine 03/13/24 Speech And Language Tutor Relationship Specialty Start Date End Date Jesusita Torrez MD [address] [facility] [place] [address] PCP - General Family Medicine 03/13/24 Speech And Language Tutor Relationship Specialty Start Date End Date Jesusita Torrez MD [address] [facility] [place] [address] PCP - General Family Medicine 03/13/24 Speech And Language Tutor Relationship Specialty Start Date End Date Jesusita Torrez MD [address] [facility] [place] [address] PCP - General Family Medicine 03/13/24 Speech And Language Tutor Relationship Specialty Start Date End Date Jesusita Torrez MD [address] [facility] [place] [address] PCP - General Family Medicine 03/13/24 Speech And Language Tutor Relationship Specialty Start Date End Date No Pcp, [place] [address] PCP - General Family Medicine 11/26/23 Goals (unrecognized section and content) Goals may be documented in a n alternate section REASON FOR VISIT (unrecogniz ed section and content) Reason Comments Hospital Follow-up Reason Comments Establish Care Reason Comments Routine Visit Reason Comments New Patient FOR RECORDS PERTAINING TO PATIENTS WHO ARE [...] BE BASED ON THE PRIMARY CLINICAL RECORDS. [employer] provides no warranty or guarantee of the accuracy or completeness of information in this document.
== END 2024-10-17 16:45 | disposition home or self-care (01) ==
LOC: FBC 16:17 → FBCO 10-18 06:50
PROVIDERS: Visit Provider Obstetrics & Gynecology
DX: O36.8130 Decreased fetal movements, third trimester, not applicable or unspecified (principal)
CPT/HCPCS: 59025

== ENCOUNTER 2024-10-21 10:37 | Inpatient (IN) | payer OTHER, SELFPAY ==
[2024-10-21] VITALS (15 sets, daily range): BP systolic 104–132; BP diastolic 62–82; PULSE 56–100; TEMP 36.1–36.2
[2024-10-21 11:29] LABS: Hematocrit 38.5 % (36.0-48.0); Hemoglobin 12.6 g/dL (12.0-16.0); Mean Corpuscular HGB Conc 32.7 g/dL (29.9-35.2); Mean Corpuscular Hemoglobin 25.9 pg (26.7-34.0); Mean Corpuscular Volume 79.2 fL (81.0-99.0); Platelet Count 214 10^3/uL (150-450); Red Blood Count 4.86 10^6/uL (4.20-5.40); Red Cell Distribution Width 13.8 % (11.0-15.0); White Blood Count 14.1 10^3/uL (4.0-11.0)
[2024-10-21 11:42] LABS: Amphetamine Screen Urine NEGATIVE (NEGATIVE); Barbiturates Screen Urine NEGATIVE (NEGATIVE); Benzodiazepines Screen Urine NEGATIVE (NEGATIVE); Buprenorphine Screen Urine NEGATIVE (NEGATIVE); Cannabinoid Screen Urine NEGATIVE (NEGATIVE); Cocaine Screen Urine NEGATIVE (NEGATIVE); Methadone Screen Urine NEGATIVE (NEGATIVE); Methamphetamines Screen Urine NEGATIVE (NEGATIVE); Opiate Screen Urine NEGATIVE (NEGATIVE); Oxycodone Screen Urine NEGATIVE (NEGATIVE); Phencyclidine Screen Urine NEGATIVE (NEGATIVE); Tricyclic Antidepressant Urine NEGATIVE (NEGATIVE)
--- NOTE | 2024-10-21 12:11 | PM.OBHP ---
OB - H&P: HPI History of Present Illness Chief complaint: LABOR : 2 Para: 1 Gestational age based on last menstrual period: 40.2 History of Present Dating criteria: LMP confirmed by 2nd trimester US Ultrasounds: normal mid trimester US Medical complications OB: none Labs Blood type: O (+) positive Rubella: immune RPR/VDLR: nonreactive GBS status: negative HBsAG: negative Review of Systems ROS Status of ROS: 10 or more systems reviewed and unremarkable except as noted in history and below PFSH PFSH Social History Highest level of school completed/degree received: high school graduate Little interest or pleasure in doing things: not at all Feeling down, depressed, or hopeless: not at all Meds Home Medications and Allergies Home Medications ?Medication ?Instructions ?Recorded ?Confirmed ?Type omeprazole 20 mg capsule,delayed 20 mg PO DAILY 08/03/24 08/03/24 History release ondansetron 4 mg disintegrating 4 mg translingual Q6H PRN nausea 08/03/24 08/03/24 History tablet and vomiting Allergies Allergy/AdvReac Type Severity Reaction Status Date / Time No Known Drug Allergies Allergy Verified 08/03/24 16:18 Exam Constitutional Vital Signs, click to edit/add: Last Vital Signs Pulse 99 H 10/21/24 12:03 BP 116/80 10/21/24 12:03 Documenting provider has reviewed patient's vital signs: yes Common normals: no apparent distress, average body habitus, oriented x3, no limitations, healthy appearing, alert and well nourished [facility] Common normals: normocephalic and head/scalp atraumatic Eye Common normals: PERRL Pupil: accommodation reflex normal Neck & C-Spine Common normals: full ROM and supple Respiratory Common normals: normal respiratory effort Auscultation: clear to auscultation bilaterally Cardio Common normals: regular rate and regular rhythm GI Common normals: Normal to inspection, nondistended, normoactive bowel sounds present and soft to palpation Common normals: no CVA tenderness Back & Pelvis Common normals: no thoracic nor lumbar tenderness Extremity Common normals: normal to inspection, full ROM and no calf tenderness Neuro Common normals: oriented x3, CN's II-XII intact bilaterally, moves all extremities, no focal motor deficits and no sensory deficits noted Motor exam: strength 5/5 throughout Psych Common normals: mental status grossly normal, thought process normal, cooperative and affect normal Results Labs Labs: Short CBC 10/21/24 Range/Units 11:19 WBC 14.1 H (4.0-11.0) 10^3/uL Hgb 12.6 (12.0-16.0) g/dL Hct 38.5 (36.0-48.0) % Plt Count 214 (150-450) 10^3/uL OB - A/P Assessment and Plan (1) Term : Assessment and Plan: GBS NEG, AT THIS POINT WOULD PREFER NO EPIDURAL, CAT I, ALLEN WELL ON OWN (2) Active labor: Assessment and Plan: ASKING FOR AROM WHICH WAS DONE, FLUID CLEAR, CERVIX: /-1 VERTEX APPLIED Plan EXPECTANT MANAGEMENT FOR
[2024-10-21] MEDS: NALBUPHINE HCL 10 MG/ML AMPULE IV (12:46)
[2024-10-21] MEDS: OXYTOCIN/0.9 % SODIUM CHLORIDE 20 UNITS/1,000 ML PLAST..BAG 125 UNIT IV (14:58)
--- NOTE | 2024-10-21 15:01 | PM.OBPRCVD ---
Procedure Intrapartal events: None Induction method: none Delivery augmentation: rupture of membranes Delivery monitor: external FHT and external uterine Route of delivery: Episiotomy Description: none L&D Laceration Description: none Estimated blood loss (mL): 150 Anesthesia type: None Disposition: no change Complications: NONE Narrative: PATIENT ON ALL FOURS UNTIL HEAD . WENT TO BACK WHEN . HEAD DELIVERED IN ONE PUSH. NO NUCHAL CORD. SHOULDERS AND TORSO IMMEDICATELY FOLLOWED. CRYING ON DELIVERY. MOUTH AND NARES BULB SUCTIONED. CORD MILDED TOWARDS BABY 30 SECONDS. CORD CLAMPED AND CUT. BABY TO MOM SKIN TO SKIN. PLACENTA SPONTANEOUSLY DELIVERED INTACT AND NOT SENT. EBL 140 CC. PITOCIN STARTED. FUNDUS FIRM. NO LACERATION. INSTRUMENT AND SPONGE COUNT CORRECT. Infant Delivery date: 10/21/24 Gender: female presentation: vertex Placental delivery description: Spontaneous
[2024-10-21] MEDS: GLYCERIN/WITCH HAZEL PADS 1 PAD TOPICAL (15:35)
[2024-10-21] MEDS: ACETAMINOPHEN 325 MG TABLET 650 MG PO (15:35)
[2024-10-21] MEDS: BENZOCAINE/MENTHOL 85 GRAM SPRAY BOTTLE 1 APPLIC TOPICAL (15:35)
[2024-10-21] MEDS: IBUPROFEN 600 MG TABLET PO ×2 (15:35→23:39)
[2024-10-22 00:11] VITALS: TEMP 36.6
[2024-10-22] MEDS: SIMETHICONE 80 MG TAB.CHEW PO (03:01)
[2024-10-22] MEDS: ACETAMINOPHEN 325 MG TABLET 650 MG PO (03:01)
[2024-10-22 06:37] LABS: Basophils Percent Auto 0.3 % (0.2-2.0); Eosinophils Absolute Auto 0.1 10^3/uL (0.0-0.7); Eosinophils Percent Auto 0.5 % (0.9-7.0); Hematocrit 35.1 % (36.0-48.0); Hemoglobin 11.1 g/dL (12.0-16.0); Immature Granulocytes Abs Auto 0.14 10^3/uL (0.00-0.03); Lymphocytes Absolute Auto 2.6 10^3/uL (1.2-3.8); Lymphocytes Percent Auto 18.5 % (20.5-60.0); Mean Corpuscular HGB Conc 31.6 g/dL (29.9-35.2); Mean Corpuscular Hemoglobin 25.6 pg (26.7-34.0); Mean Corpuscular Volume 80.9 fL (81.0-99.0); Mean Platelet Volume 10.1 fL (9.5-13.5); Monocytes Absolute Auto 1.1 10^3/uL (0.3-0.8); Monocytes Percent Auto 7.8 % (1.7-12.0); Neutrophils Absolute Auto 9.9 10^3/uL (1.4-6.5); Neutrophils Percent Auto 71.9 % (43.0-75.0); Platelet Count 199 10^3/uL (150-450); Red Blood Count 4.34 10^6/uL (4.20-5.40); Red Cell Distribution Width 13.9 % (11.0-15.0); White Blood Count 13.8 10^3/uL (4.0-11.0)
--- NOTE | 2024-10-22 07:17 | PC.NURSE ---
report received from Jennifer RN
--- NOTE | 2024-10-22 07:20 | PM.OBPN ---
OB - PN: Subj Subjective Patient comments: no complaints [place] status: doing well [place] feeding status: exclusively Exam Constitutional Vital Signs, click to edit/add: Last Vital Signs Temp 97.8 F 10/22/24 00:11 Pulse 81 10/21/24 23:41 Resp 16 10/22/24 00:11 BP 122/74 10/21/24 23:41 O2 Del Method Room Air 10/22/24 00:11 Documenting provider has reviewed patient's vital signs: yes Common normals: no apparent distress, oriented x3, no limitations and alert General appearance: cooperative HENMT Common normals: normocephalic and head/scalp atraumatic Eye Common normals: PERRL Pupil: accommodation reflex normal Neck & C-Spine Common normals: full ROM and supple Respiratory Common normals: normal respiratory effort Auscultation: clear to auscultation bilaterally Cardio Common normals: regular rate and regular rhythm GI Common normals: Normal to inspection, nondistended, normoactive bowel sounds present Common normals: no CVA tenderness Back & Pelvis Common normals: no thoracic nor lumbar tenderness Extremity Common normals: normal to inspection, full ROM and no calf tenderness Neuro Common normals: CN's II-XII intact bilaterally, moves all extremities, no focal motor deficits and no sensory deficits noted Motor exam: strength 5/5 throughout Psych Common normals: mental status grossly normal, thought process normal, cooperative and affect normal Results Labs Labs: Short CBC 10/21/24 10/22/24 Range/Units 11:19 06:24 WBC 14.1 H 13.8 H (4.0-11.0) 10^3/uL Hgb 12.6 11.1 L (12.0-16.0) g/dL Hct 38.5 35.1 L (36.0-48.0) % Plt Count 214 199 (150-450) 10^3/uL OB - PN: A/P Assessment and Plan (1) (spontaneous vaginal delivery): Assessment and Plan: s/p delivery yesterday afternoon, no epidural, no lac, no complication, breast feeding clinical exam non focal Plan routine care Plan - Vaginal Delivery day: 1 Plan: routine care Time Spent with Patient Time: Total time spent is greater than 50% in coordination of care (as documented) at patient's floor/unit and/or counseling patient: Total time spent with greater than 50% in coordination of care (as documented) at patient's floor/unit and/or counseling patient: less than 15 minutes
[2024-10-22] MEDS: IBUPROFEN 600 MG TABLET PO (07:55)
[2024-10-22 07:58] VITALS: TEMP 36.4
[2024-10-22 07:59] VITALS: BP 125/82; PULSE 60
[2024-10-22] MEDS: DOCUSATE SODIUM 100 MG CAPSULE PO (08:06)
[2024-10-22 12:09] VITALS: TEMP 36.8
[2024-10-22 12:10] VITALS: BP 112/69; PULSE 86
--- NOTE | 2024-10-22 14:26 | PC.NURSE ---
RN offers patient any breast feeding assistance that may be needed but patient declines needing any assistance at this time. RN offers follow up after discharge with support in hospital and patient declines wanting to schedule anything at this time but will call if needed. Phone number provided to make a follow up appointment with if needed/wanted.
--- NOTE | 2024-10-22 18:04 | P.OBPN_ITS ---
OB - PN: Subj Subjective Patient comments: no complaints [place] status: doing well feeding status: exclusively Exam Constitutional Vital Signs, click to edit/add: Last Vital Signs Temp 98.2 F 10/22/24 12:09 Pulse 86 10/22/24 12:10 Resp 18 10/22/24 12:09 BP 112/69 10/22/24 12:10 O2 Del Method Room Air 10/22/24 12:11 Common normals: no apparent distress Exam limitations: altered mental status General appearance: cooperative Orientation/consciousness: Yes awake, Yes oriented to person, Yes oriented to place and Yes oriented to time HENMT Common normals: normocephalic Eye Common normals: EOMs intact bilaterally General eye: normal appearance of both eyes Neck & C-Spine Common normals: full ROM Lymph Lymphatic: no lymphadenopathy noted Chest Common normals: inspection of chest normal Respiratory Common normals: normal respiratory effort Effort & inspection: able to speak in complete sentences Cardio Common normals: regular rate and regular rhythm Rate: regular rate Rhythm: regular rhythm GI Common normals: Normal to inspection, nondistended, normoactive bowel sounds present, soft to palpation and non-tender Inspection: normal to inspection Auscultation: normoactive bowel sounds Palpation: soft and firm Percussion: normal to percussion Common normals: no CVA tenderness Back & Pelvis Common normals: no CVA tenderness Extremity Common normals: normal to inspection General: normal exam except as noted Neuro Common normals: oriented x3 Sensorium/orientation: awake, alert, oriented to person, oriented to place and oriented to time Psych Common normals: mental status grossly normal, thought process normal and cooperative Attitude: calm Speech: normal speech Thought process: normal thought process Results Labs Labs: Short CBC 10/22/24 Range/Units 06:24 WBC 13.8 H (4.0-11.0) 10^3/uL Hgb 11.1 L (12.0-16.0) g/dL Hct 35.1 L (36.0-48.0) % Plt Count 199 (150-450) 10^3/uL OB - PN: A/P Assessment and Plan (1) (spontaneous vaginal delivery): Plan - Vaginal Delivery day: 1 Plan: discharge home Time Spent with Patient Time: Total time spent is greater than 50% in coordination of care (as documented) at patient's floor/unit and/or counseling patient: Total time spent with greater than 50% in coordination of care (as documented) at patient's floor/unit and/or counseling patient: less than 15 minutes
== END 2024-10-22 18:26 | disposition home or self-care (01) | DRG 560 ==
PROVIDERS: Admitting Provider Obstetrics & Gynecology; Visit Provider Obstetrics & Gynecology
DX: O99.334 Smoking (tobacco) complicating childbirth (principal); F17.290 Nicotine dependence, other tobacco product, uncomplicated; Z3A.40 40 weeks gestation of pregnancy; Z37.0 Single live birth; Z87.440 Personal history of urinary (tract) infections
CPT/HCPCS: 36415; 59050; 59410; 80307; 85025; 85027; 86850; 86900; 86901; J2300